=== PATIENT | male | born 2000 | race Caucasian/White ===

== ENCOUNTER 2021-08-24 20:30 | Emergency (ER) | payer MEDICARE, MEDICAID, SELFPAY ==
[2021-08-24 20:31] VITALS: BP 119/70; PULSE 78; RESP 20; TEMP 36.7; O2SAT 98; BMI 22.8
--- NOTE | 2021-08-24 20:40 | EDS_ITS ---
HPI History of Present Illness Chief Complaint: General Illness Informant: patient and EMS Narrative Narrative: 21-year-old male presenting to the emergency department stating that something is off. Patient currently lives at a senior living. He states that his grandmother told him that he seems off. He does not know exactly what she thought but he states he does not feel right. He states that his heart is racing (triage heart rate of 78) and he feels anxious. He states that he would like to have his thyroid checked as he takes thyroid medicine. He does not know what type of medicine or what condition. He knows that he takes Depakote. He is takes a blood pressure medicine that he does not know the name of. He does not have a primary care doctor that he is aware of. He states that he drank alcohol yesterday and occasionally uses marijuana. He states that he did not use any marijuana today. [facility] Medical History (Updated 08/24/21 @ 22:[address] Ricardo Greene DO) Hypertension Allergy/AdvReac Type Severity Reaction Status Date / Time No Known Allergies Allergy Verified 08/24/21 20:31 Social History (Updated 08/24/21 @ 20:[address] Ricardo Greene DO) current gender identity: male Smoking Status: Current every day smoker tobacco type: cigarettes substance use type: marijuana ROS ROS ED Constitutional Constitutional ED: Denies chills or weight loss Eyes Eyes: Denies change in vision or diplopia ENT ENT ED: Denies ear pain, rhinorrhea or sore throat Cardiovascular Cardiovascular: Reports palpitations; Denies chest pain, orthopnea or racing heartbeat Respiratory/Chest Respiratory/Chest: Denies cough, dyspnea or orthopnea Gastrointestinal Gastrointestinal: Denies abdominal pain, diarrhea, nausea or vomiting Genitourinary Genitourinary ED: Denies dysuria, hematuria or urinary frequency Musculoskeletal Musculoskeletal: Denies arthralgias or myalgias Integumentary Denies abscess or rash Neurologic Neurologic: Denies headache(s) or weakness Psychiatric Psychiatric: Reports anxiety; Denies depression, suicidal ideation or suicidal thoughts Endocrine Endocrinology: Denies polydipsia, polyphagia or polyuria Allergic/Immunologic Allergic/Immunologic ED: Denies mouth swelling, tongue swelling or urticaria EXAM Physical Exam Const Vital Signs: 08/24/21 20:31 08/24/21 20:55 Temperature 98.0 F Temperature Source Oral Pulse Rate 78 Respiratory Rate 20 H Respiratory Effort Normal Non-Labored Respiratory Pattern Normal Blood Pressure 119/70 Blood Pressure Mean 86 Pulse Ox 98 Oxygen Delivery Method Room Air Positive well nourished and well developed General Appearance ED: well developed HEENT Reports normocephalic, head/scalp atraumatic, TM's clear and moist mucous membranes Negative for trauma Tympanic Membrane ED: Yes TM's clear Eyes PERRL and EOMs intact bilaterally Neck no lymphadenopathy, supple and no JVD Resp normal respiratory effort and clear to auscultation bilaterally Cardio regular rate, regular rhythm and no murmurs GI normal to inspection, nondistended, normoactive bowel sounds and non-tender Palpation: soft Back/Spine no CVA tenderness and normal ROM Extremity normal to inspection General Extremety ED: Negative for edema General Extremity: Negative for edema Neuro oriented x3 and CN's II-XII intact bilaterally Sensorium / Orientation: alert Motor Exam: strength 5/5 throughout Psych mental status grossly normal Mood & Affect: Negative for depressed or tearful Skin no rashes or lesions noted and no wounds MDM MDM MDM Narrative Medical decision making narrative: Patient's TSH is less than 0.01. Difficult to interpret not knowing what thyroid condition he has. His valproic acid level is less than 3 suggesting that he has not been taking his valproic acid. His tox screem is positive for cannabinoids which he tells us. I spoke with our crisis counselor because the patient cannot tell me medicines doctors etc. He tells me that he has no showed 3 consecutive appointments with them. He apparently does have a court appointed compliance attorney with a guardian named Benitez desouza . I attempted to call but this is an office phone number and the mailbox is full. I think the patient can go home but I am concerned with his follow-up. Lab Data Attestation: I reviewed the patient's lab results. Labs: Laboratory Results - last 24 hr 08/24/21 08/24/21 08/24/21 20:45 20:52 20:52 WBC 11.5 H RBC 4.40 L Hgb 12.9 L Hct 38.4 L MCV 87.3 MCH 29.3 MCHC 33.6 RDW Std Deviation 42.5 RDW Coeff of Deirdre 13.2 Plt Count 236 MPV 8.9 Immature Gran % (Auto) 0.200 Neut % (Auto) 42.9 L Lymph % (Auto) 48.1 H Rains % (Auto) 7.3 Eos % (Auto) 1.1 Baso % (Auto) 0.4 Absolute Neuts (auto) 4.9 Absolute Lymphs (auto) 5.54 H Nucleated RBC % 0 Differential Comment SCANNED Sodium 141 Potassium 3.7 Chloride 110 H Carbon Dioxide 26.0 Anion Gap 5 BUN 14 Creatinine 0.59 L Estim Creat Clear Calc 181.78 Est GFR (MDRD) Af Amer 218 Est GFR (MDRD) Non-Af 180 BUN/Creatinine Ratio 23.7 H Glucose 104 Calcium 8.4 L Total Bilirubin 0.20 AST 14 L ALT 28 Alkaline Phosphatase 169 H Total Protein 6.4 Albumin 3.5 Globulin 2.9 Albumin/Globulin Ratio 1.2 TSH < 0.01 L Urine Opiates Screen NEGATIVE Urine Methadone Screen NEGATIVE Ur Barbiturates Screen NEGATIVE Valproic Acid Ur Phencyclidine Scrn NEGATIVE Ur Amphetamines Screen NEGATIVE MDMA (Ecstasy) Screen NEGATIVE U Benzodiazepines Scrn NEGATIVE Urine Cocaine Screen NEGATIVE U Cannabinoids Screen POSITIVE H Ur Drug Screen Comment Ethyl Alcohol 08/24/21 20:52 WBC RBC Hgb Hct MCV MCH MCHC RDW Std Deviation RDW Coeff of Deirdre Plt Count MPV Immature Gran % (Auto) Neut % (Auto) Lymph % (Auto) Rains % (Auto) Eos % (Auto) Baso % (Auto) Absolute Neuts (auto) Absolute Lymphs (auto) Nucleated RBC % Differential Comment Sodium Potassium Chloride Carbon Dioxide Anion Gap BUN Creatinine Estim Creat Clear Calc Est GFR (MDRD) Af Amer Est GFR (MDRD) Non-Af BUN/Creatinine Ratio Glucose Calcium Total Bilirubin AST ALT Alkaline Phosphatase Total Protein Albumin Globulin Albumin/Globulin Ratio TSH Urine Opiates Screen Urine Methadone Screen Ur Barbiturates Screen Valproic Acid < 3 L Ur Phencyclidine Scrn Ur Amphetamines Screen MDMA (Ecstasy) Screen U Benzodiazepines Scrn Urine Cocaine Screen U Cannabinoids Screen Ur Drug Screen Comment Ethyl Alcohol < 3.0 Discharge Plan Triage Chief Complaint: General Illness ED Provider: Ricardo Greene Dx/Rx/DC Orders Clinical Impression: Palpitations Primary Care Provider: Care Physician,No Primary Referrals: Counseling,Center [GROUP OF PHYSICIANS] - As soon as possible Care Physician,No Primary [Primary Care Provider] - Activity Restrictions/Additional Instructions: You need to discuss with your telephonic nurse case manager whom your primary care physician is going to be in schedule follow-up. You should carry a list of your medications with you Your Depakote level today was less than 3. You need to make sure you are taking your medicines and you need to mention this value to your doctors. Disposition Disposition: Home, Self Care
[2021-08-24 20:59] LABS: Absolute Lymphocyte Count 5.54 X10^3/uL (0.83-4.51); Absolute Neutrophil Count 4.9 X10^3/uL (2.0-7.7); Basophil# 0.05 X10^3/uL; Basophil% 0.4 % (0-1); Eosinophil# 0.13 X10^3/uL; Eosinophils% 1.1 % (0-5); Hematocrit 38.4 % (40-54); Hemoglobin 12.9 g/dL (13.0-16.5); Lymphocyte # 5.54 X10^3/ul (0.83-4.51); Lymphocyte % 48.1 % (19-41); Mean Corp Hgb Conc 33.6 g/dL (32-36); Mean Corpuscular Hgb 29.3 pg (27.0-32.0); Mean Corpuscular Volume 87.3 fL (80-94); Mean Platelet Vol. 8.9 fl (6.2-12.0); Monocyte# 0.84 X10^3/uL; Monocyte% 7.3 % (0-10); NRBC Flagged by Analyzer 0 % (0-5); Neutrophil # 4.93 X10^3/uL (2.7-7.7); Neutrophil % 42.9 % (47-70); POSITIVE DIFFERENTIAL YES; Platelet Count 236 K/mm3 (150-450); RBC Distribution Width CV 13.2 % (11.6-14.6); RBC Distribution Width SD 42.5 fl (35.1-43.9); White Blood Count 11.5 K/mm3 (4.4-11.0)
[2021-08-24 21:11] LABS: Differential Indicated SCAN CRITERIA MET
[2021-08-24 21:17] LABS: Amphetamine Urine VISTA NEGATIVE (<1000 ng/mL); Barbiturate Urine VISTA NEGATIVE (< 200 ng/mL); Benzodiazepine Urine VISTA NEGATIVE (< 200 ng/mL); Cocaine Urine VISTA NEGATIVE (< 300 ng/mL); Ecstacy Urine VISTA NEGATIVE (< 500 ng/mL); Methadone Urine VISTA NEGATIVE (< 300 ng/mL); PCP Urine VISTA NEGATIVE (< 25 ng/mL); THC Urine VISTA POSITIVE (< 50 ng/mL); Vista UDS pH Range 7
[2021-08-24 21:32] LABS: Alcohol, Blood (Medical)-Serum < 3.0 mg/dL; Differential Comment SCANNED; Valproic Acid (Depakene) Level < 3 ug/mL (50-100)
[2021-08-24 21:57] LABS: ALB/GLOB Ratio 1.2 RATIO (0.9-2.4); AST(SGOT) 14 U/L (15-37); Alanine Aminotransfer ALT/SGPT 28 U/L (16-61); Albumin, Serum 3.5 g/dL (3.2-5.0); Alkaline Phosphatase 169 U/L (45-117); Anion Gap 5 (5-15); BUN 14 mg/dL (7-18); BUN/Creat Ratio 23.7 RATIO (10-20); Calcium,Total 8.4 mg/dL (8.5-10.1); Chloride 110 mmol/L (98-107); Creatinine, Serum 0.59 mg/dL (0.70-1.30); EST Glomerular Filtration Rate 180 mL/min (>60); Est Glom Filt Rate - Afr Amer 218 mL/min (>60); Estimated Creatinine Clearance 181.78 ml/min; Globulin 2.9 g/dL (2.2-4.2); Glucose 104 mg/dL (74-106); Potassium 3.7 mmol/L (3.5-5.1); Protein, Total 6.4 g/dL (6.4-8.2); Sodium Level 141 mmol/L (136-145); Thyroid Stim Hormone (TSH) < 0.01 uIU/mL (0.358-3.74)
--- NOTE | 2021-08-24 22:09 | ED.RN ---
per pt he takes Synthroid, blood pressure medicine and Depakote. pt unsure of dosage amounts.
== END 2021-08-24 22:37 | disposition home or self-care (01) ==
PROVIDERS: Emergency Provider Emergency Medicine; Visit Provider Emergency Medicine
DX: R00.2 Palpitations (principal); F17.210 Nicotine dependence, cigarettes, uncomplicated; F12.90 Cannabis use, unspecified, uncomplicated
CPT/HCPCS: 80053; 80164; 80307; 82077; 84443; 85025; 99285; A4216

== ENCOUNTER 2021-10-02 17:16 | Emergency (ER) | payer MEDICARE, MEDICAID, SELFPAY ==
[2021-10-02 17:18] VITALS: BP 127/87; PULSE 104; RESP 16; TEMP 36.7; O2SAT 97; BMI 18.1
--- NOTE | 2021-10-02 17:36 | EKG12_ITS ---
Test Reason : PALP Blood Pressure : / mmHG Vent. Rate : 092 BPM Atrial Rate : 092 BPM P-R Int : 180 ms QRS Dur : 094 ms QT Int : 346 ms P-R-T Axes : 059 066 058 degrees QTc Int : 427 ms Normal sinus rhythm Normal ECG Confirmed by ISHAAN POLO MD ([id number]), brands editor DINORA UNGER ([id number]) on 10/03/2021 10:15:39 AM Referred By: CHAN Confirmed By:ISHAAN POLO MD
[2021-10-02 17:39] VITALS: O2SAT 99
[2021-10-02 17:50] LABS: Absolute Lymphocyte Count 4.01 X10^3/uL (0.83-4.51); Absolute Neutrophil Count 2.6 X10^3/uL (2.0-7.7); Basophil# 0.05 X10^3/uL; Basophil% 0.7 % (0-1); Eosinophil# 0.06 X10^3/uL; Eosinophils% 0.8 % (0-5); Hematocrit 42.3 % (40-54); Hemoglobin 14.1 g/dL (13.0-16.5); Lymphocyte # 4.01 X10^3/ul (0.83-4.51); Lymphocyte % 54.6 % (19-41); Mean Corp Hgb Conc 33.3 g/dL (32-36); Mean Corpuscular Hgb 29.5 pg (27.0-32.0); Mean Corpuscular Volume 88.5 fL (80-94); Mean Platelet Vol. 9.8 fl (6.2-12.0); Monocyte# 0.57 X10^3/uL; Monocyte% 7.8 % (0-10); NRBC Flagged by Analyzer 0 % (0-5); Neutrophil # 2.64 X10^3/uL (2.7-7.7); Platelet Count 237 K/mm3 (150-450); RBC Distribution Width CV 12.5 % (11.6-14.6); RBC Distribution Width SD 41.2 fl (35.1-43.9); Red Blood Count 4.78 M/mm3 (4.6-6.2); White Blood Count 7.3 K/mm3 (4.4-11.0)
--- NOTE | 2021-10-02 17:57 | EX.ED.DYSGE1 ---
HPI History of Present Illness Chief Complaint: Palpitations Narrative Narrative: 21-year-old male presenting from [facility] for evaluation of palpitations. He is unsure how long he has had them but he believes he was At his last ER visit about a month ago. He states he had no medication changes. He states he has been taking his medication. He states that the [facility] was supposed to manage that. He states he does not think he is having palpitations he thinks this thyroid cyst acting up from time to time. No chest pain or shortness of breath. No fever or chills. No cough. No lightheadedness or dizziness. PFSH PFS Medical History ADHD Antisocial personality disorder Hypertension Hyperthyroidism Schizo-affective schizophrenia Home Medications divalproex 250 mg tablet,delayed release (Depakote) 250 mg PO BID 10/02/21 [History Last Taken Unknown] methimazole 15 mg tablet 15 mg PO BID 10/02/21 [History Last Taken Unknown] paliperidone 6 mg tablet,extended release 24 hr (Invega) 6 mg PO DAILY 10/02/21 [History Last Taken Unknown] paliperidone palmitate 234 mg/1.5 mL intramuscular syringe (Invega Sustenna) mg IM 10/02/21 [History Last Taken Unknown] Allergy/AdvReac Type Severity Reaction Status Date / Time No Known Allergies Allergy Verified 08/24/21 20:31 Social History Smoking Status: Current every day smoker tobacco type: cigarettes substance use type: marijuana ROS ROS ED Constitutional Constitutional ED: Denies chills or fever(s) Eyes Eyes: Denies change in vision or diplopia ENT ENT ED: Denies rhinorrhea or sore throat Cardiovascular Cardiovascular: Reports palpitations; Denies chest pain Respiratory/Chest Respiratory/Chest: Denies cough or dyspnea Gastrointestinal Gastrointestinal: Denies abdominal pain, constipation or diarrhea Genitourinary Genitourinary ED: Denies dysuria Musculoskeletal Musculoskeletal: Denies arthralgias or back pain Integumentary Denies abscess Neurologic Neurologic: Denies headache(s) Psychiatric Psychiatric: Denies suicidal ideation or suicidal thoughts EXAM Physical Exam Const Vital Signs: 10/02/21 17:18 10/02/21 17:20 10/02/21 17:39 Temperature 98.1 F Temperature Source Oral Pulse Rate 104 H Respiratory Rate 16 Respiratory Effort Normal Blood Pressure 127/87 H Blood Pressure Mean 100 Pulse Ox 97 99 Oxygen Delivery Method Room Air Room Air Positive well nourished and unkempt General Appearance ED: unkempt; Negative for pallor HEENT Reports moist mucous membranes Eyes PERRL and EOMs intact bilaterally Resp clear to auscultation bilaterally Cardio regular rhythm Rate: tachycardic GI normal to inspection, nondistended, normoactive bowel sounds Extremity normal to inspection Neuro oriented x3 and CN's II-XII intact bilaterally Psych Appearance: unkempt Skin General Skin Exam: Negative for jaundice or pallor MDM MDM MDM Narrative Medical decision making narrative: I did order blood work to evaluate the patient's symptoms however it does not sound as if he has been taking his medications. I did he obtain an EKG and it is a sinus rhythm with ventricular 90 bpm without sign of ischemic change or dysrhythmia my interpretation. So far only CBC has returned and the patient states to me that he has an emergency in the family and left the emergency room. Impression: 1. Palpitations Lab Data Labs: Laboratory Results - last 24 hr 10/02/21 17:25 WBC 7.3 RBC 4.78 Hgb 14.1 Hct 42.3 MCV 88.5 MCH 29.5 MCHC 33.3 RDW Std Deviation 41.2 RDW Coeff of Deirdre 12.5 Plt Count 237 MPV 9.8 Immature Gran % (Auto) 0.100 Neut % (Auto) 36.0 L Lymph % (Auto) 54.6 H [place] % (Auto) 7.8 Eos % (Auto) 0.8 Baso % (Auto) 0.7 Absolute Neuts (auto) 2.6 Absolute Lymphs (auto) 4.01 Nucleated RBC % 0 Discharge Plan Triage Chief Complaint: Palpitations ED Provider: Afshin Gordon Dx/Rx/DC Orders Prescriptions: No Action Invega Sustenna 234 mg/1.5 mL Syringe IM divalproex [Depakote] 250 mg Tablet,Delayed Release (Dr/Ec) 250 mg PO BID paliperidone [Invega] 6 mg Tablet Extended Release 24hr 6 mg PO DAILY methimazole 15 mg Tablet 15 mg PO BID Primary Care Provider: Care Physician,No Primary Referrals: Care Physician,No Primary [Primary Care Provider] -
--- NOTE | 2021-10-02 18:00 | RAD_ITS ---
STUDY: X-RAY CHEST REASON FOR EXAM: Male, 21 years old. chest pain TECHNIQUE: Single AP portable view of the chest. COMPARISON: None. FINDINGS: The lungs are clear and expanded. There is no demonstrated pleural abnormality. Normal size heart. Normal mediastinum and adolph. Normal visualized pulmonary arteries. Normal visualized aortic arch and descending thoracic aorta. Normal visualized thoracic spine. Normal visualized ribs, clavicles, and shoulders. There is no demonstrated abnormality of the visualized soft tissue structures of the upper abdomen. RAD/Chest 1 View (Portable) IMPRESSION: Normal x-ray examination of the chest. Electronically Signed: Talon Hernandez MD at 18:30 EDT ,
[2021-10-02 18:19] LABS: Anion Gap 6 (5-15); BUN 14 mg/dL (7-18); BUN/Creat Ratio 27.8 RATIO (10-20); Calcium,Total 8.8 mg/dL (8.5-10.1); Chloride 111 mmol/L (98-107); EST Glomerular Filtration Rate 217 mL/min (>60); Est Glom Filt Rate - Afr Amer 262 mL/min (>60); Estimated Creatinine Clearance 171.28 ml/min; Glucose 102 mg/dL (74-106); Potassium 3.9 mmol/L (3.5-5.1); Sodium Level 139 mmol/L (136-145); Thyroid Stim Hormone (TSH) < 0.01 uIU/mL (0.358-3.74); Troponin-I HS (w/2H Reflex) < 3 pg/mL (3.0-78.0)
--- NOTE | 2021-10-02 18:22 | ED.RN ---
pt out to nurses station requesting to leave d/t family emergency. dr. hazel update. pt calling insurance about getting ride.
[2021-10-02 18:28] LABS: Valproic Acid (Depakene) Level < 3 ug/mL (50-100)
[2021-10-02 19:45] LABS: Reflex Troponin-HS? (from REC) Y
== END 2021-10-02 18:53 | disposition home or self-care (01) ==
LOC: ED 18:46
PROVIDERS: Emergency Provider Student in an Organized Health Care Education/Training Program; Visit Provider Student in an Organized Health Care Education/Training Program
DX: R00.2 Palpitations (principal); F25.9 Schizoaffective disorder, unspecified; F60.2 Antisocial personality disorder; I10 Essential (primary) hypertension; F90.9 Attention-deficit hyperactivity disorder, unspecified type; F17.210 Nicotine dependence, cigarettes, uncomplicated; Z79.899 Other long term (current) drug therapy
CPT/HCPCS: 71045; 80048; 80164; 84443; 84484; 85025; 93005; 99285; A4216

== ENCOUNTER → 2024-05-14 | Outpatient (CLI) | payer MEDICARE, MEDICAID, SELFPAY ==
--- NOTE | 2024-05-14 12:59 | ECHOD_ITS ---
Reason For Study: ARRHYTHMIA Procedure This was a 2D Doppler, Color Flow transthoracic echocardiogram. Exam performed in department. Left Ventricle Normal LV size. Left ventricular systolic function is normal. The left ventricular ejection fraction is 60 %. No regional wall motion abnormalities noted. Right Ventricle Normal RV size. Normal systolic function. Atria Normal left atrium. Normal right atrium. Mitral Valve Normal mitral valve. Tricuspid Valve Normal tricuspid valve. Aortic Valve Trisinus/trileaflet aortic valve. Pulmonic Valve Normal pulmonic valve. Great Vessels Normal aortic root. The pulmonary artery is normal size. Normal inferior vena cava. Pericardium/Pleural No pericardial effusion. MMode/2D Measurements & Calculations LVIDd: 4.7 cm IVSd: 1.0 cm LVOT diam: 2.2 cm LVIDs: 2.9 cm LVPWd: 1.0 cm LVOT area: 3.9 cm2 RVDd: 3.3 cm FS: 39.2 % asc Aorta Diam: 3.5 cm LAV(MOD-bp): 23.9 ml LVAd ap4: 27.9 cm2 LAV(MOD-bp) Indexed: 12.2 ml/m2 LVLd ap4: 8.4 cm LAV(MOD-sp2): 32.0 ml EDV(MOD-sp4): 79.7 ml LAV(MOD-sp4): 18.6 ml EDV(sp4-el): 78.7 ml LVAs ap4: 15.7 cm2 LVLs ap4: 6.7 cm ESV(MOD-sp4): 33.3 ml ESV(sp4-el): 31.3 ml EF(MOD-sp4): 58.3 % EF(sp4-el): 60.2 % LVAd ap2: 23.0 cm2 SV(MOD-sp4): 46.5 ml SV(MOD-sp2): 35.8 ml LVLd ap2: 7.6 cm SI(MOD-sp4): 23.8 ml/m2 SI(MOD-sp2): 18.3 ml/m2 EDV(MOD-sp2): 60.8 ml EDV(sp2-el): 58.6 ml LVAs ap2: 13.8 cm2 LVLs ap2: 6.3 cm ESV(MOD-sp2): 25.0 ml ESV(sp2-el): 25.7 ml EF(MOD-sp2): 58.9 % SV(sp4-el): 47.4 ml Ao sinus diam: 3.[address] Junction: 3.3 cm LA dimension(2D): 2.9 cm LA A4 area: 10.2 cm2 RA A4 area: 13.9 cm2 TAPSE: 1.5 cm Time Measurements MV dec time: 0.21 sec Doppler Measurements & Calculations MV E max nba: 76.9 cm/sec Lat Peak E' Nba: 16.3 cm/sec Med Peak E' Nba: 12.3 cm/sec MV A max nba: 48.0 cm/sec E/E' lat: 4.7 E/E' med: 6.2 MV E/A: 1.6 MV dec slope: 368.0 cm/sec2 Ao V2 max: 131.1 cm/sec LV V1 max: 104.1 cm/sec Ao max P.9 mmHg LV V1 max P.3 mmHg Ao V2 mean: 100.7 cm/sec LV V1 mean P.4 mmHg Ao mean P.3 mmHg LV V1 mean: 72.2 cm/sec Ao V2 VTI: 23.0 cm LV V1 VTI: 19.0 cm AV (velocity ratio): 0.83 WAQAS(I,D): 3.2 cm2 WAQAS(V,D): 3.1 cm2 SV(LVOT): 73.9 ml PA V2 max: 94.1 cm/sec ECHO/Echo Complete Interpretation Summary Normal LV size. Left ventricular systolic function is normal. The left ventricular ejection fraction is 60 %. Structurally normal valves. Ordering Physician: Efraín, Chino Referring Physician: Chino Kenny MD Performed By: Oksana Schaefer, [facility]
== END | disposition home or self-care (01) ==
LOC: CVS 12:55
PROVIDERS: PCP Family Medicine; Referring Provider Internal Medicine Cardiovascular Disease; Visit Provider Internal Medicine Cardiovascular Disease
DX: R94.31 Abnormal electrocardiogram [ECG] [EKG] (principal); R00.2 Palpitations
CPT/HCPCS: 93306

== ENCOUNTER → 2025-03-20 | Outpatient (CLI) | payer MEDICARE, MEDICAID, SELFPAY ==
[2025-03-20 14:16] LABS: T3 Total - Triiodothyronine 0.97 ng/mL (0.80-2.00); T4 Total, Thyroxin 5.7 ug/dL (4.5-12.1)
== END | disposition home or self-care (01) ==
PROVIDERS: PCP Family Medicine; Referring Provider Family Medicine; Visit Provider Family Medicine
DX: R06.2 Wheezing (principal); E05.91 Thyrotoxicosis, unspecified with thyrotoxic crisis or storm
CPT/HCPCS: 84436; 84443; 84480

== ENCOUNTER 2025-03-26 15:04 | Inpatient (IN) | payer MEDICARE, MEDICAID, SELFPAY ==
[2025-03-26] VITALS (14 sets, daily range): BP systolic 94–128; BP diastolic 65–96; PULSE 92–102; RESP 17–24; TEMP 36.7–37.1; O2SAT 85–94; BMI 30.9; BMI 31.5
--- NOTE | 2025-03-26 15:26 | EKG12_ITS ---
Test Reason : SOB Blood Pressure : */* mmHG Vent. Rate : 95 BPM Atrial Rate : 95 BPM P-R Int : 190 ms QRS Dur : 112 ms QT Int : 382 ms P-R-T Axes : 39 32 47 degrees QTcB Int : 480 ms Normal sinus rhythm QTcB >= 480 msec Abnormal ECG Confirmed by ARIANA MERINO, GAY ([id number]), assistant production editor DINORA UNGER ([id number]) on 03/30/2025 6:28:14 AM Referred By: Confirmed By: GAY LANE MD
--- NOTE | 2025-03-26 15:28 | ED.VIS.DYS ---
HPI History of Present Illness Chief Complaint: Shortness of Breath Narrative Narrative: Patient is a 24-year-old male presenting to the emergency department for hypoxia. Patient has a past medical history of palpitations, tachycardia, hypertension, hypothyroidism and multiple psychiatric diagnoses that can be seen in his medical history. He states that he told his nurses at his psychiatric facility that he was sick last night. Further asked about this he states that he had 1 episode of nonbloody nonbilious emesis last night after feeling nauseous. Today he told them that he did not feel good stating that he was nauseous. He was noted to be hypoxic in the 80s and was placed on oxygen by EMS. States he felt mildly SOB but not now that he is on O2. No chest pain. He does smoke about 8 cigarettes daily. Endorses a productive cough of clear sputum. Denies cardiac history, history of asthma or history of DVT/PE. Denies any recent hospitalizations, surgeries or travel. Denies any leg swelling. Denies fever, chills, sore throat, nausea or vomiting at this time, abdominal pain. [facility] Medical History Impulsiveness Paranoid personality disorder Moderate protein malnutrition PVD (peripheral vascular disease) Suicidal ideations Hallucinations Patient's noncompliance with other medical treatment and regimen for other reason Palpitations Other psychoactive substance abuse, uncomplicated Tachycardia ADHD Antisocial personality disorder Schizo-affective schizophrenia Hyperthyroidism Hypertension Home Medications ?Medication ?Instructions ?Recorded ?Last Taken ?Type divalproex 250 mg tablet,delayed 250 mg PO QHS SCHIZOEFFECTIVE 03/20/24 Unknown History release (Depakote) divalproex 500 mg tablet,delayed 500 mg PO BID SCHIZOEFFECTIVE 03/20/24 Unknown History release (Depakote) DISORDER hydrochlorothiazide 25 mg tablet 25 mg PO QAM HTN 03/20/24 Unknown History hydroxyzine HCl 50 mg tablet 50 mg PO Q6H PRN anxiety 03/20/24 Unknown History lisinopril 10 mg tablet 10 mg PO QDAY HTN 03/20/24 Unknown History lorazepam 1 mg tablet (Ativan) 1 mg PO Q6H PRN PRN anxiety 03/20/24 Unknown History olanzapine 10 mg tablet 10 mg PO BID SCHIZOEFFECTIVE 03/20/24 Unknown History DISORDER trazodone 50 mg tablet 50 mg PO QHS SLEEP 03/20/24 Unknown History methimazole 10 mg tablet 10 mg PO DAILY THYROTOXIC CRISIS 04/23/24 Unknown History methimazole 15 mg tablet 15 mg PO .every other day 04/23/24 Unknown History propranolol 20 mg tablet 10 mg PO DAILY HTN 04/23/24 Unknown History Allergy/AdvReac Type Severity Reaction Status Date / Time No Known Allergies Allergy Verified 03/26/25 15:10 Surgical History No history of previous surgery Social History Smoking Status: Current every day smoker tobacco type: cigarettes substance use type: marijuana ROS ROS ED ROS Narrative see HPI EXAM Physical Exam Narrative Exam Narrative: Vital signs: Reviewed General: Alert and orientedx3. No acute distress. Nontoxic, well appearing. HEENT: Head is normocephalic and atraumatic, sinuses nontender, pupils equal round and reactive. Nares are patent. Oropharynx and throat exams normal. Neck: Supple without lymphadenopathy nontender Cardiovascular: Regular rate and rhythm, no murmurs. No rubs or gallops. Normal S1 and S2 Respiratory: Expiratory wheezing in all lung sullivan. No rhonchi or rales. on 2 L NC saturating 95%, mouth breathing. Abdominal: Soft and nontender. Normal bowel sounds. No guarding or rebound. Nonsurgical abdomen Extremities: No lower extremity edema. No tenderness. No bruising. Normal range of motion. Normal sensation. Skin: No rash or redness. The rest of the physical exam is unremarkable Const Vital Signs: 03/26/25 15:04 03/26/25 15:10 03/26/25 15:17 Temperature 98.6 F 98.6 F Temperature Source Oral Oral Pulse Rate 102 H 97 Respiratory Rate 20 H 24 H Respiratory Effort Short of Breath Blood Pressure 96/65 97/65 Blood Pressure Mean 75 75 Pulse Ox 85 91 Oxygen Delivery Method Room Air Nasal Cannula Nasal Cannula Oxygen Flow Rate (L/min) 3 3 03/26/25 15:26 03/26/25 16:00 03/26/25 16:00 Temperature Temperature Source Pulse Rate 98 Respiratory Rate 19 H Respiratory Effort Blood Pressure Blood Pressure Mean Pulse Ox 90 93 Oxygen Delivery Method Room Air Nasal Cannula Oxygen Flow Rate (L/min) 3 3 03/26/25 16:04 03/26/25 16:10 03/26/25 17:00 Temperature 98.7 F Temperature Source Oral Pulse Rate 102 H 100 102 H Respiratory Rate 20 H 18 20 H Respiratory Effort Blood Pressure 106/74 104/69 104/69 Blood Pressure Mean 84 80 80 Pulse Ox 92 92 92 Oxygen Delivery Method Nasal Cannula Nasal Cannula Nasal Cannula Oxygen Flow Rate (L/min) 3 3 3 03/26/25 17:10 03/26/25 18:00 Temperature 98.7 F Temperature Source Oral Pulse Rate 100 92 Respiratory Rate 18 18 Respiratory Effort Blood Pressure 106/67 98/70 Blood Pressure Mean 80 79 Pulse Ox 92 92 Oxygen Delivery Method Nasal Cannula Nasal Cannula Oxygen Flow Rate (L/min) 3 3 MDM MDM MDM Narrative Medical decision making narrative: Patient is a 24-year-old male presenting to the emergency department for hypoxia. Patient was seen and examined. Vitals are stable. Patient resting bed comfortably no acute distress. He is on 3 L nasal cannula saturating 95 to 97% when I am in the room. He is not tachypneic when I am in the room. No tachycardia on my evaluation. Differential includes but is not limited to: Pneumonia, asthma/COPD, PE, ACS, pneumothorax Patient has diffuse wheezing and does have a history of significant smoking. Will give 2 DuoNeb breathing treatments and prednisone. Will also obtain a CT of the chest to rule out pulmonary embolism and further evaluate for any pneumonia. EKG shows normal sinus rhythm at a rate of 95 with QTc prolonged at 480. There is no ischemic changes. There is no dysrhythmia. CBC with mild leukopenia of 3.3, normal hemoglobin of 13.6 and thrombocytopenia of 104. He is on olanzapine which could cause these abnormalities. BMP with hyponatremia of 122 which again can be contributed to his olanzapine, fluid bolus ordered. Hypokalemia 2.8, oral repletion of potassium was given. Lactic within normal limits. Troponin and reflex within normal limits with no significant delta change. Chest CT shows no pulmonary embolism however limited study. There are scattered lung opacities bilaterally most consistent with multifocal pneumonia. Patient still requiring 2 to 3 L nasal cannula. He was ambulated without oxygen and pulse ox dropped to around 88%. With the patient's hyponatremia, we will add on Legionella. Discussed findings with the patient and recommendations for admission and he is agreeable. Patient admitted to hospitalist, Dr. Hoover for further management. Clinical impression Multifocal pneumonia Leukopenia Thrombocytopenia Hyponatremia Hypokalemia Hypoxia History & Record Review Discussion w/independent historian: Patient Lab Data Attestation: I reviewed the patient's lab results. Labs: Laboratory Results - last 24 hr 03/26/25 03/26/25 15:14 17:51 WBC 3.3 L RBC 4.26 L Hgb 13.6 Hct 37.2 L MCV 87.3 MCH 31.9 MCHC 36.6 H RDW Std Deviation 39.8 RDW Coeff of Deirdre 12.4 Plt Count 104 L MPV 9.9 Immature Gran % (Auto) 0.300 Neut % (Auto) 52.3 Lymph % (Auto) 34.1 [place] % (Auto) 12.7 H Eos % (Auto) 0.0 Baso % (Auto) 0.6 Absolute Neuts (auto) 1.7 L Absolute Lymphs (auto) 1.13 Nucleated RBC % 0 Sodium 122 L Potassium 2.8 L Chloride 83 L Carbon Dioxide 25.3 Anion Gap 14 BUN 12 Creatinine 1.01 Estim Creat Clear Calc 118.36 Est GFR (MDRD) Non-Af 105 BUN/Creatinine Ratio 11.5 Glucose 126 H Lactic Acid < 1.0 Calcium 8.0 Troponin T High Sens 10 Troponin T Hi Sens 2 Hr 13 Radiography Diagnostic Testing: Clinical Impression(s) from Imaging Studies Chest CTA 03/26/25 15:42 IMPRESSION: 1. Limited evaluation of the subsegmental pulmonary arteries. No evidence of PE in the remaining pulmonary arteries. 2. Scattered lung opacities bilaterally, most consistent with multifocal pneumonia. Reading Location: [id number] Discharge Plan Disposition Disposition: Acute Care Hospital [facility] Discharge Date/Time: 03/26/25 19:04
[2025-03-26 15:40] LABS: Hematocrit 37.2 % (40-54); Hemoglobin 13.6 g/dL (13.0-16.5); Immature Granulocytes Count 0.010 X10^3/uL (0.0-0.0); Mean Corp Hgb Conc 36.6 g/dL (32-36); Mean Corpuscular Volume 87.3 fL (80-94); Mean Platelet Vol. 9.9 fl (6.2-12.0); NRBC Flagged by Analyzer 0 % (0-5); Platelet Count 104 K/mm3 (150-450); RBC Distribution Width CV 12.4 % (11.6-14.6); RBC Distribution Width SD 39.8 fl (35.1-43.9); Red Blood Count 4.26 M/mm3 (4.6-6.2); White Blood Count 3.3 K/mm3 (4.4-11.0)
--- NOTE | 2025-03-26 15:42 | CT_ITS ---
PROCEDURE: CTA CHEST W/WO CONTRAST 03/26/2025 REASON FOR EXAM: HYPOXIA TECHNIQUE: Procedure Code: [id number] Modality: CT Procedure: CTA CHEST W/WO CONTRAST Axial CTA images obtained of the chest after the administration of intravenous contrast. MIP reconstructed images were created and reviewed. CONTRAST: Isovue 370 VOLUME: 100 mL One or more dose reduction techniques were used (e.g., Automated exposure control, adjustment of the mA and/or kV according to patient size, use of iterative reconstruction technique). RADIATION DOSE SUMMARY: CTDlvol: 14.25, 10.86 mGy DLP: 390 mGycm COMPARISON: None. FINDINGS: PULMONARY ARTERIES Respiratory motion limits evaluation of the subsegmental pulmonary arteries. No evidence of PE in the remaining pulmonary arteries. AORTA No thoracic aortic aneurysm or dissection. LUNGS No pulmonary mass. Multifocal lung opacities bilaterally, with sparing of the right middle lobe. PLEURAL SPACES No pleural effusion. No pneumothorax. HEART No cardiomegaly. No significant pericardial effusion. MEDIASTINUM/HILUM Mildly prominent mediastinal and bilateral hilar lymph nodes, likely reactive. The largest is subcarinal measuring 1.3 x 2.0 cm. CHEST WALL The chest wall is unremarkable. THYROID Generalized thyroid gland enlargement. BONES No focal osseous abnormality or acute fracture. UPPER ABDOMEN Images through the upper abdomen are unremarkable. CT/CTA Chest W/WO Contrast IMPRESSION: 1. Limited evaluation of the subsegmental pulmonary arteries. No evidence of PE in the remaining pulmonary arteries. 2. Scattered lung opacities bilaterally, most consistent with multifocal pneum onia. Reading Location: [id number]
[2025-03-26 16:10] LABS: Anion Gap 14 (5-15); BUN 12 mg/dL (4-19); BUN/Creat Ratio 11.5 RATIO (10-20); Calcium,Total 8.0 mg/dL (7.6-11.0); Carbon Dioxide 25.3 mmol/L (21.0-32.0); Chloride 83 mmol/L (98-108); Estimated Creatinine Clearance 118.36 ml/min (50-250); Glucose 126 mg/dL (70-99); Potassium 2.8 mmol/L (3.3-5.1)
[2025-03-26 16:40] LABS: Troponin T High Sensitivity 10 ng/L (<=22)
[2025-03-26] MEDS: Potassium Chloride Oral Tablet 20 MEQ 60 MEQ PO (17:03)
[2025-03-26] MEDS: 0.9% Normal Saline (1000mL) 1,000 ML 1000 ML IV (17:32)
--- OUTSIDE RECORDS SUMMARY | 2025-03-26 18:20 | XMS RPT_ITS | CCD ---
Author Organization [facility] [place] [facility] Care Team Providers Care Shut Off Worker Name Role Phone INDURTI, MARCO V Admitting Unavailable INDURTI, AMRCO V Attending Unavailable MELITON, LEIDY R Admitting Unavailable MELITON, LEIDY R Attending Unavailable GROUP, [facility]CH COVER[employer] Consulting Unavailabl e AICHA RUTHMED Admitting Unavailable NAMITA RUTH Attending Unavailable INDURTI, MARCO V Admitting Unavailable INDURTI, MARCO V Attending Unavailable GINNY GUTIÉRREZ Attending Unavailable Unavailable Primary Care Provider Unavailabl e GINO GUTIERREZ Attending Unavailable SANDOR HOLM Consulting Unavailable SANDOR HOLM Admitting Unavailable JESSIE DAI Attending Unavailable JESSIE DAI Consulting Unavailable SHARON XIONG Consulting Unavailable No, Physician Primary Care Provider Unavailabl e Adrienne Arcos Primary Care Provider No, Physician Primary Care Provider Unavailabl e SHILA RAJPUT Attending Unavailable SHILA RAJPUT Admitting Unavailable Unavailable Primary Care Provider Unavailabl e Unavailable Primary Care Provider Unavailabl e PROVIDER, UNKNOWN Admitting Unavailable DAMIR ELLIOTT Attending Unavailable PROVIDER, UNKNOWN Admitting Unavailable PROVIDER, UNKNOWN Attending Unavailable No, Physician Primary Care Provider Unavailabl e Amadeo Silver MD Primary Care Provider Amadeo Silver Primary Care Unavailable Care Physician, No Primary Referring Unava ilable Efraín, Chino Attending Unavailable Amadeo Silver Primary Care Unavailable Efraín, Chino Attending Unavailable Efraín, Chino Referring Unavailable Amadeo Silver Primary Care Unavailable Efraín, Sherman Attending Unavailable AMADEO SILVER Primary Care Unavailable NO, PHYSICIAN Primary Care Unavailable AMADEO SILVER Primary Care Unavailable ADLY, CHARLES ADLY CHARLES Attending Unava ilable AMADEO SILVER Primary Care Unavailable ADLY, CHARLES ADLY CHARLES Attending Unava ilable GUILLERMOY, CHARLES ADLY CHARLES Attending Unava ilable AMADEO SILVER Primary Care Unavailable ADLY, CHARLES ADLY CHARLES Attending Unava ilable AMADEO SILVER Primary Care Unavailable ADLY, CHARLES ADLY CHARLES Attending Unava ilable AMADEO SILVER Primary Care Unavailable ADLY, CHARLES ADLY CHARLES Attending Unava ilable AMADEO SILVER Primary Care Unavailable AMADEO SILVER Primary Care Unavailable ADLY, CHARLES ADLY CHARLES Attending Unava ilable GUILLERMOY, CHARLES ADLY CHARLES Attending Unava ilable AMADEO SILVER Primary Care Unavailable ADLY, CHARLES ADLY CHARLES Attending Unava ilable AMADEO SILVER Primary Care Unavailable ADLY, CHARLES ADLY CHARLES Attending Unava ilable AMADEO SILVER Primary Care Unavailable ADLY, CHARLES ADLY CHARLES Attending Unava ilable AMADEO SILVER Primary Care Unavailable ADLY, CHARLES ADLY CHARLES Attending Unava ilable AMADEO SILVER Primary Care Unavailable Allergies Allergy Classification Reported Allergen(s) Allergy Type Date of Onset Reaction(s) Facility (20 sources) MITE EXTRACT Drug Allergy 9 Other (See Comments) [place], [place] (20 sources) redtop grass pollen extract Drug Allergy 9 Other (See Comments) [place] (2 sources) MITE EXTRACT; Translations: [MITE EXTRACT] Drug Allergy 9 [facility] Repository (2 sources) GRASS POLLEN-RED TOP, STANDARD; Translations: [GRASS POLLEN-RED TOP, STANDARD] Propensity to adverse reactions to drug (disorder) 9 [facility] Medications Current Medications Medication Drug Class(es) Dates Sig (Normalized) Sig (Original) azithromycin (ZITHROMAX) 500 mg in dextrose 5% 250 mL IVPB (2 sources) Start: 06-03-2019 azithromycin (ZITHROMAX) 500 mg in dextrose 5% 250 mL IVPB Start: 06-03-2019 End: 06-03-2019 azithromycin (ZITHROMAX) 500 mg in dextrose 5% 250 mL IVPB dextromethorphan hydrobromide 2 mg/ml / guaiFENesin 20 mg/ml oral solution (2 sources) Uncompetitive Y-lwnefj-Q-aspartate Receptor Antagonist, Sigma-1 Agonist Start: 06-04-2019 dextromethorphan-guaiFENesin (ROBITUSSIN-DM) 10-100 MG/5ML syrup Take 10 mLs by mouth every 4 hours as needed for Cough 1 Bottle 0 06/04/2019 Active Start: 06-03-2019 dextromethorph an-guaiFENesin (ROBITUSSIN-DM) 10-100 MG/5ML liquid 10 mL ergocalciferol 1.25 mg oral capsule (2 sources) Provitamin D2 Compound Start: 03-23-2020 ergocalciferol (ERGOCALCIFEROL) 1,250 mcg (50,000 unit) capsule Vitamin D (Ergocalciferol) 1.25 MG(33405 UT), 1 (one) Capsule once a week # 4, 03/23/2020, Ref. x11. Active Oral once a week; Duration: 0 03/23/2020 Active hydroCHLOROthiazide 25 mg oral tablet (11 sources) Thiazide Diuretic take 1 tablet by mouth once daily hydroCHLOROthiazide (HYDRODIURIL) 25 MG tablet Take 1 (one) tablet (25 mg total) by mouth daily . Active ibuprofen 600 mg oral tablet (5 sources) Nonsteroidal Anti-inflammator y Drug Start: 08-20-2020 take 1 tablet by mouth twice daily as needed ibuprofen (ADVIL,MOTRIN) 600 MG tablet Ibuprofen 600MG, 1 (one) Tablet two times daily, as needed # 60, 08/20/2020, Ref. x1. Active Oral two times daily, as needed; Duration: 0 08/20/2020 Active Start: 11-12-2019 End: 11-19-2019 take 1 tablet by mouth every six hours as needed 600 mg, Oral, Every 6 hours PRN, mild pain, Starting 11/12/19 at 2031 Give with Food Do Not Crush or Chew if administering orally due to bitter taste. May be crushed if given via tube. Start: 10-20-2019 End: 10-30-2019 take 1 tablet by mouth every six hours as needed ibuprofen (ADVIL,MOTRIN) tablet 600 mg Start: 06-03-2019 End: 06-03-2019 ibuprofen (ADVIL;MOTRIN) tab let 800 mg levoFLOXacin 750 mg oral tablet (1 source) Quinolone Antimicrobial Start: 06-04-2019 End: 06-07-2019 take 1 tablet by mouth once daily levoFLOXacin (LEVAQUIN) 750 MG tablet Take 1 tablet by mouth daily for 3 days 3 tablet 0 06/04/2019 06/07/2019 Active lisinopril 10 mg oral tablet (11 sources) Angiotensin Converting Enzyme Inhibitor lisinopriL (PRINIVIL,ZESTRIL) 10 MG tablet Take by mouth daily . Active methIMAzole 10 mg oral tablet (20 sources) Thyroid Hormone Synthesis Inhibitor Start: 09-10-2024 End: 09-10-2025 take 0.5 tablet by mouth once daily methIMAzole (TAPAZOLE) 10 MG tablet Take 0.5 (one-half) tablet (5 mg total) by mouth daily . 15 tablet 11 09/10/2024 09/10/2025 Active Start: 01-12-2024 End: 01-11-2025 methIMAzole (TAPAZOLE) 10 MG tablet Take 1.5 (one and a half) tablets (15 mg total) by mouth daily . 45 tablet 11 01/12/2024 09/10/2024 Discontinued Start: 12-11-2023 End: 12-10-2024 take 1 tablet by mouth twice daily methIMAzole (TAPAZOLE) 10 MG tablet Take 1 (one) tablet (10 mg total) by mouth 2 (two) times a day . 60 tablet 11 12/11/2023 12/10/2024 Active Start: 11-02-2023 take 1 tablet by elijah th three times daily methIMAzole (TAPAZOLE) 10 MG tablet Take 1 (one) tablet (10 mg total) by mouth 3 (three) times a day . 90 tablet 3 11/02/2023 Active Start: 09-25-2023 End: 11-02-2023 take 2 tablets by mouth three times daily methIMAzole (TAPAZOLE) 10 MG tablet Take 2 (two) tablets (20 mg total) by mouth 3 (three) times a day . 180 tablet 09/25/2023 11/02/2023 Discontinued Start: 08-20-2023 End: 09-19-2023 take 2 tablets by mouth every six hours methIMAzole (TAPAZOLE) 10 MG tablet Take 2 (two) tablets (20 mg total) by mouth every 6 (six) hours . 240 tablet 0 08/20/2023 09/19/2023 Suspended Start: 08-20-2023 End: 09-19-2023 take 2 tablets by mouth every six hours Take 2 (two) tablets (20 mg total) by mouth every 6 (six) hours ., Starting Sun08/20/2023, Until Sun09/19/2023, Normal Start: 08-20-2023 End: 08-24-2023 methIMAzole (TAPAZOLE) table t 20 mg Start: 11-01-2021 End: 12-01-2021 take 1 tablet by mouth three times daily methIMAzole (TAPAZOLE) 5 mg tablet Take 1 tablet by mouth three times daily. 90 tablet 0 11/01/2021 12/01/2021 Active Start: 10-02-2021 take 15 mg by mouth twice max y Methimazole Active 15 MG PO TWICE A DAY October 02, 2021 12:00am Start: 02-26-2020 End: 03-27-2020 methIMAzole (TAPAZOLE) 10 MG tablet Take 1.5 (one and a half) tablets (15 mg total) by mouth daily . 50 tablet 5 02/26/2020 03/27/2020 Active Start: 01-01-2020 End: 02-26-2020 take 2 tablets by mouth once daily methIMAzole (TAPAZOLE) 10 MG tablet Take 2 (two) tablets (20 mg total) by mouth daily Start: 01/01/20. 60 tablet 0 01/01/2020 02/26/2020 Discontinued (Reorder) Start: 12-28-2019 End: 01-06-2020 methIMAzole (TAPAZOLE) table t 20 mg Start: 12-27-2019 End: 12-27-2019 take 30 mg by mouth once daily 30 mg, Oral, Daily, [facility] dose on 9/12/20 at 0900 Start: 12-08-2019 End: 01-17-2020 take 3 tablets by mouth once daily methIMAzole (TAPAZOLE) 10 MG tablet Take 3 (three) tablets (30 mg total) by mouth daily . 90 tablet 3 12/18/2019 01/06/2020 Discontinued (Stop Taking at Discharge) Start: 11-22-2019 End: 12-22-2019 take 2 tablets by mouth twice daily methIMAzole (TAPAZOLE) 10 MG tablet Take 2 (two) tablets (20 mg total) by mouth 2 (two) times a day . 120 tablet 2 11/22/2019 12/08/2019 Discontinued (Reorder) Start: 11-20-2019 End: 12-18-2019 methIMAzole (TAPAZOLE) table t 20 mg Start: 11-12-2019 End: 11-19-2019 take 40 mg by mouth once daily 40 mg, Oral, Daily, [facility] dose on Alysa 11/13/19 at 0900 Start: 10-30-2019 End: 11-29-2019 take 4 tablets by mouth once daily methIMAzole (TAPAZOLE) 10 MG tablet Take 4 (four) tablets (40 mg total) by mouth daily . 120 tablet 2 10/30/2019 11/22/2019 Discontinued (Reorder) Start: 10-21-2019 End: 10-30-2019 methIMAzole (TAPAZOLE) table t 20 mg Comment on above: Take 1 tablet by elijah th three times daily. 24 hr metoprolol succinate 25 mg extended release oral tablet (3 sources) beta-Adrenergic Rahul Start: 11-01-2021 End: 12-01-2021 take 1 tablet by mouth once daily metoprolol succinate ER (TOPROL XL) 25 mg 24 hr tablet Take 1 tablet by mouth once daily. 30 tablet 0 11/01/2021 12/01/2021 Active Start: 10-28-2020 take 1 tablet by elijah th twice daily metoprolol tartrate (LOPRESSOR) 25 MG tablet Metoprolol Tartrate 25MG, Tablet two times daily # 60, 10/28/2020, No Refill. Active Oral two times daily; Duration: 0 10/28/2020 Active Comment on above: Take 1 tablet by elijah th once daily. naproxen 500 mg oral tablet (1 source) Nonsteroidal Anti-inflammatory Drug Start: 03-29-2023 take 1 tablet by mouth twice daily as needed for pain naproxen (NAPROSYN) 500 MG tablet Take 1 Tablet by mouth 2 times daily as needed for Pain. 30 Tablet 0 03/29/2023 Active Start: 03-29-2023 take 1 tablet by elijah th twice daily as needed for pain naproxen (NAPROSYN) 500 MG tablet Take 1 Tablet by mouth 2 times daily as needed for Pain. 30 Tablet 0 03/29/2023 Active 24 hr nicotine 0.875 mg/hr transdermal system (17 sources) Cholinergic Nicotinic Agonist Start: 09-25-2023 End: 10-25-2023 apply 1 dose transdermal route once daily nicotine (NICODERM CQ) 21 mg/[address] 1 (one) patch on the skin daily . 28 patch 0 09/25/2023 10/25/2023 Active Start: 08-21-2023 End: 09-20-2023 apply 1 dose transdermal route once daily nicotine (NICODERM CQ) 21 mg/[address] 1 (one) patch on the skin daily Start: 08/21/23. 28 patch 0 08/21/2023 09/20/2023 Suspended Start: 08-21-2023 End: 08-24-2023 nicotine (NICODERM CQ) 21 mg /24 hr 1 patch Start: 12-28-2019 End: 01-06-2020 nicotine (NICODERM CQ) 21 mg /24 hr 1 patch Start: 12-07-2019 End: 12-18-2019 take 2 mg oropharyngeal route every two hours as needed nicotine polacrilex (NICORETTE) gum 2 mg Start: 11-23-2019 End: 12-07-2019 nicotine (NICODERM CQ) 21 mg /24 hr 1 patch Start: 11-13-2019 End: 11-19-2019 nicotine (NICODERM CQ) 21 mg /24 hr 1 patch Start: 10-31-2019 End: 12-20-2019 apply 1 dose transdermal route once daily nicotine (NICODERM CQ) 21 mg/[address] 1 (one) patch on the skin daily Start: 11/20/19. 28 patch 0 11/20/2019 12/18/2019 Discontinued (Stop Taking at Discharge) Start: 10-20-2019 End: 10-30-2019 nicotine (NICODERM CQ) 21 mg /24 hr 1 patch Start: 06-03-2019 apply 1 dose transde rmal route once daily as needed 1 patch, Transdermal, Administer over 24 Hours, DAILY PRN, if patient smokes/requests nicotine replacent therapy, Starting Sun06/03/19 at 0933 Apply new patch to nonhairy, clean, dry skin on the upper body or upper outer arm. Rotate patch sites. Notify pharmacy if patient or provider prefers patch to be removed at bedtime and replaced in the morning. Hazardous Medication -- Refer to facility policy for handling and disposal. OLANZapine 10 mg oral tablet (19 sources) Atypical Antipsychotic Start: 09-25-2023 End: 10-25-2023 take 1 tablet by mouth twice daily in the morning OLANZapine (ZYPREXA) 10 MG tablet Take 1 (one) tablet (10 mg total) by mouth 2 (two) times a day . 60 tablet 09/25/2023 9:39 AM EDT 09/25/2023 Active Start: 11-21-2019 End: 11-22-2019 take 1 tablet by mouth every six hours as needed OLANZapine (ZYPREXA) tablet 10 mg 2 ml ondansetron 2 mg/ml injection (1 source) Serotonin-3 Receptor Antagonist Start: 06-03-2019 4 mg, Intravenous, EVERY 6 HOURS PRN, Nausea, Starting Sun06/03/19 at 0933 oxymetazoline hydrochloride 0.5 mg/ml nasal spray (2 sources) Start: 06-04-2019 End: 07-04-2019 oxymetazoline (AFRIN) 0.05 % nasal spray 1 spray by Nasal route 2 times daily as needed for Congestion 1 Bottle 0 06/04/2019 07/04/2019 Active Start: 06-03-2019 End: 06-05-2019 oxymetazoline (AFRIN) 0.05 % nasal spray 1 spray 1.5 ml paliperidone palmitate 156 mg/ml prefilled syringe (20 sources) Atypical Antipsychotic Start: 10-19-2023 End: 10-23-2024 paliperidone palmitate (Invega Sustenna) 234 mg/1.5 mL Syrg Inject 1.5 mL (234 mg total) into the shoulder, thigh, or buttocks every 28 days Start: 10/19/23. 1.5 mL 10/19/2023 10/23/2024 Discontinued Start: 10-19-2023 paliperidone p almitate (Invega Sustenna) 234 mg/1.5 mL Syrg Inject 1.5 mL (234 mg total) into the shoulder, thigh, or buttocks every 28 days Start: 10/19/23. 1.5 mL 0 10/19/2023 Active Start: 10-19-2023 paliperidone p almitate (Invega Sustenna) 234 mg/1.5 mL Syrg Inject 1.5 mL (234 mg total) into the shoulder, thigh, or buttocks every 28 days Start: 10/19/23. 1.5 mL 0 10/19/2023 Active Start: 08-21-2023 End: 08-24-2023 take 6 mg by mouth once daily 6 mg, Oral, Daily, First dose (after last modification) on Sun08/21/23 at 0900, DO NOT CRUSH OR CHEW. Start: 10-02-2021 Paliperidone P almitate (Invega Sustenna) 234 mg/1.5 mL Syringe Active MG IM October 02, 2021 12:00am Start: 10-28-2020 take 1 tablet by elijah th every twenty-four hours, then take 1 tablet by mouth at bedtime paliperidone (INVEGA) 6 MG 24 hr tablet Paliperidone ER( 6MG Oral 1 bedtime ) Active -Hx Entry Oral bedtime; Duration: 0 10/28/2020 Active Start: 12-27-2019 End: 01-06-2020 take 6 mg by mouth once daily 6 mg, Oral, Daily, First dose on 12/27/19 at 0900 DO NOT CRUSH OR CHEW. Start: 12-06-2019 End: 12-06-2019 paliperidone palmitate (INVE GA SUSTENNA) injection 234 mg Start: 11-21-2019 End: 12-18-2019 paliperidone (INVEGA) 24 hr tablet 6 mg Start: 11-13-2019 End: 11-19-2019 take 6 mg by mouth once daily in the morning 6 mg, Oral, Every morning, First dose on Alysa 11/13/19 at 0900 DO NOT CRUSH OR CHEW. Start: 10-29-2019 End: 10-29-2019 paliperidone palmitate (INVE GA SUSTENNA) injection 234 mg Start: 10-27-2019 End: 10-29-2019 paliperidone (INVEGA) 24 hr tablet 9 mg Start: 10-22-2019 End: 10-27-2019 paliperidone (INVEGA) 24 hr tablet 6 mg Start: 10-20-2019 End: 10-21-2019 take 3 mg by mouth once daily in the morning 3 mg, Oral, Every morning, First dose on Sun10/20/19 at 1600 DO NOT CRUSH OR CHEW. Start: 06-05-2019 take 1 tablet by elijah th once daily paliperidone (INVEGA) 3 MG extended release tablet Take 1 tablet by mouth daily 30 tablet 0 06/05/2019 Active Start: 06-03-2019 End: 10-30-2019 paliperidone (INVEGA) extend ed release tablet 3 mg Start: 08-20-2018 End: 12-01-2021 take 1 tablet by mouth once daily Take 1 (one) tablet (6 mg total) by mouth daily Start: 12/19/19., Starting Sun12/19/2019, Until Alysa 02/26/2020, Normal End: 12-18-2019 paliperidone palmitate (INVE GA SUSTENNA) 156 mg/mL Syrg Inject 156 mg into the shoulder, thigh, or buttocks every 28 days . 0 12/18/2019 Discontinued (Stop Taking at Discharge) Comment on above: Take 1 tablet by elijah th once daily. propranolol hydrochloride 40 mg oral tablet (20 sources) beta-Adrenergic Rahul Start: 05-08-2024 End: 05-08-2025 take 1 tablet by mouth every eight hours as needed propranoloL (INDERAL) 40 MG tablet Indications: Graves disease Take 1 (one) tablet (40 mg total) by mouth every 8 (eight) hours as needed if HR is >90 and hold if BP 60 tablet 11 05/08/2024 05/08/2025 Active Start: 11-22-2023 End: 05-08-2024 take 1 tablet by mouth every eight hours propranoloL (INDERAL) 60 MG tablet Take 1 (one) tablet (60 mg total) by mouth every 8 (eight) hours . 90 tablet 3 11/22/2023 05/08/2024 Discontinued Start: 11-02-2023 take 1 tablet by elijah th every eight hours propranoloL (INDERAL) 60 MG tablet Take 1 (one) tablet (60 mg total) by mouth every 8 (eight) hours . 90 tablet 3 11/02/2023 Active Start: 09-25-2023 End: 11-02-2023 take 1 tablet by mouth every eight hours propranoloL (INDERAL) 80 MG tablet Take 1 (one) tablet (80 mg total) by mouth every 8 (eight) hours . 90 tablet 09/25/2023 11/02/2023 Discontinued Start: 08-23-2023 End: 08-24-2023 propranoloL (INDERAL) tablet 80 mg Start: 08-21-2023 End: 08-23-2023 propranoloL (INDERAL) tablet 60 mg Start: 08-20-2023 End: 08-21-2023 take 40 mg by mouth every six hours 40 mg, Oral, Every 6 hours scheduled, First dose (after last modification) on Sun08/20/23 at 1300 Start: 11-21-2019 End: 12-08-2019 propranoloL (INDERAL) tablet 10 mg Start: 11-20-2019 propranoloL (I NDERAL) tablet 40 mg Start: 11-12-2019 End: 11-19-2019 take 10 mg by mouth every twelve hours 10 mg, Oral, Every 12 hours scheduled, First dose on Sun11/13/19 at 0900 Start: 10-30-2019 End: 12-18-2019 take 1 tablet by mouth every twelve hours propranoloL (INDERAL) 10 MG tablet Take 1 (one) tablet (10 mg total) by mouth every 12 (twelve) hours . 60 tablet 0 11/04/2019 12/18/2019 Discontinued (Stop Taking at Discharge) Start: 10-27-2019 End: 10-30-2019 propranoloL (INDERAL) tablet 10 mg pseudoephedrine hydrochloride 30 mg oral tablet (1 source) alpha-Adrenergic Agonist Start: 06-03-2019 pseudoephedrine (SUDAFED) tablet 30 mg purified protein derivative of tuberculin 50 unt/ml injectable solution (6 sources) Tuberculosis Skin Test, Skin Test Antigen tuberculin (Tubersol) 5 tub. unit /0.1 mL injection Inject 0.1 mL (5 Units total) into the skin once Sign this order in conjunction with the immunization order to satisfy [place] [employer] Positive ID requirements for immunization orders. . Active traZODone hydrochloride 50 mg oral tablet (20 sources) Serotonin Reuptake Inhibitor Start: 09-25-2023 End: 10-25-2023 take 1 tablet by mouth once daily as needed for sleep traZODone (DESYREL) 50 MG tablet Take 1 (one) tablet (50 mg total) by mouth nightly as needed for sleep . 30 tablet 09/25/2023 9:39 AM EDT 09/25/2023 Active Start: 11-22-2019 End: 12-18-2019 traZODone (DESYREL) tablet 5 0 mg Start: 11-12-2019 End: 11-19-2019 take 50 mg by mouth once daily as needed for sleep 50 mg, Oral, Nightly PRN, sleep, Starting Sun11/12/19 at 2031 [] May repeat once in 30 minutes if still awake. Start: 10-20-2019 End: 10-30-2019 traZODone (DESYREL) tablet 5 0 mg 24 hr divalproex sodium 500 mg extended release oral tablet (20 sources) Mood Stabilizer, Anti-epileptic Agent Start: 09-25-2023 End: 10-25-2023 take 1 tablet by mouth twice daily in the morning divalproex (DEPAKOTE ER) 500 MG 24 hr tablet Take 1 (one) tablet (500 mg total) by mouth 2 (two) times a day . 60 tablet 09/25/2023 9:39 AM EDT 09/25/2023 Active Start: 09-25-2023 End: 10-25-2023 take 1 tablet by mouth once daily divalproex (DEPAKOTE) 250 MG delayed release (DR) tablet Take 1 (one) tablet (250 mg total) by mouth nightly . 30 tablet 09/25/2023 9:39 AM EDT 09/25/2023 Active Start: 08-21-2023 End: 08-24-2023 take 500 mg by mouth once daily 500 mg, Oral, Daily, F irst dose (after last modification) on Sun08/21/23 at 0900, CATEGORY D HAZARDOUS DRUG use safe handling precautions. Use reference link to view PPE guidelines. DO NOT CRUSH OR CHEW. Start: 11-01-2021 End: 12-01-2021 take 1 tablet by mouth once daily divalproex DR (DEPAKOTE) 250 mg EC tablet Take 1 tablet by mouth once daily. 30 tablet 0 11/01/2021 12/01/2021 Active Start: 10-02-2021 take 1 tablet by elijah th twice daily Divalproex (Depakote) 250 mg Tablet,Delayed Release (Dr/Ec) Active 250 MG PO TWICE A DAY October 02, 2021 12:00am Start: 12-26-2019 End: 01-06-2020 take 500 mg by mouth once daily 500 mg, Oral, 2 times daily, First dose on Sun12/26/19 at 2330 CATEGORY D HAZARDOUS DRUG use safe handling precautions. Use reference link to view PPE guidelines. DO NOT CRUSH OR CHEW. Start: 12-18-2019 End: 01-17-2020 take 1 tablet by mouth twice daily divalproex (DEPAKOTE ER) 500 MG 24 hr tablet Take 1 (one) tablet (500 mg total) by mouth 2 (two) times a day . 60 tablet 0 12/18/2019 Suspended Start: 11-26-2019 End: 12-18-2019 divalproex (DEPAKOTE ER) 24 hr tablet 500 mg Comment on above: Take 1 tablet by elijah th once daily. Completed/Discontinued Medications Medication Drug Class(es) Dates Sig (Normalized) Sig (Original) acetaminophen 325 mg oral tablet (4 sources) Start: 11-20-2019 End: 12-18-2019 take 1 tablet by mouth every four hours as needed acetaminophen (TYLENOL) tablet 650 mg Start: 06-03-2019 650 mg, Oral, EVERY 4 HOURS PRN, Pain Mild (1-3), Fever, For temp greater than 100.5 F (38 C), Starting Tu06/03/19 at 0933 Maximum dose of acetaminophen is 4000 mg from all sources in 24 hours. Start: 06-03-2019 End: 06-03-2019 acetaminophen (TYLENOL) tabl et 1,000 mg albuterol 0.83 mg/ml inhalant solution (2 sources) beta2-Adrenergic Agonist Start: 11-18-2019 End: 11-19-2019 take 2.5 mg by inhalation every four hours as needed albuterol (PROVENTIL) 2.5 mg /3 mL (0.083 %) nebulizer solution 2.5 mg Start: 06-03-2019 2.5 mg, Nebuli zation, EVERY 2 HOURS PRN, Wheezing, Starting Sun06/03/19 at 0933 albuterol 0.833 mg/ml / ipratropium bromide 0.167 mg/ml inhalant solution (10 sources) Anticholinergic, beta2-Adrenergic Agonist Start: 11-21-2019 End: 11-22-2019 ipratropium-albuteroL (DUO-NEB) 0.5-2.5 mg/3 ml nebulizer solution 3 mL Start: 11-20-2019 End: 11-21-2019 take 3 mL by inhalation every two hours as needed 3 mL, Inhalation, Every 2 hour PRN (RT), wheezing, shortness of breath, Starting [facility] 11/20/19 at 1727 Start: 11-19-2019 End: 12-19-2019 take 3 mL by inhalation every four hours ipratropium-albuteroL (DUO-NEB) 0.5-2.5 mg/3 ml nebulizer Take 3 mL by nebulization every 4 (four) hours . 540 mL 0 11/19/2019 12/18/2019 Discontinued (Stop Taking at Discharge) Start: 11-17-2019 End: 11-19-2019 ipratropium-albuteroL (DUO-N EB) 0.5-2.5 mg/3 ml nebulizer solution 3 mL Start: 06-03-2019 1 ampule, Inha lation, EVERY 4 HOURS WHILE AWAKE, First dose on Sun06/03/19 at 1200 aluminum hydroxide 40 mg/ml / magnesium hydroxide 40 mg/ml / simethicone 4 mg/ml oral suspension (9 sources) Start: 11-22-2019 End: 12-18-2019 take 30 mL by mouth every four hours as needed aluminum-magnesium hydroxide-simethicone (MAALOX PLUS) 200-200-20 mg/5 mL suspension 30 mL Start: 11-12-2019 End: 11-19-2019 take 30 mL by mouth every four hours as needed 30 mL, Oral, Every 4 hours PRN, indigestion, Starting [facility] 11/12/19 at 2032 Start: 10-20-2019 End: 10-30-2019 take 30 mL by mouth every four hours as needed aluminum-magnesium hydroxide-simethicone (MAALOX PLUS) 200-200-20 mg/5 mL suspension 30 mL take 30 mL by mouth four times daily before mealtime aluminum-magnesium hydroxide-simethicone (MAALOX PLUS) 200-200-20 mg/5 mL Susp Take 30 mL by mouth 4 (four) times a day before meals and nightly . Active amphetamine aspartate 2.5 mg / amphetamine sulfate 2.5 mg / dextroamphetamine saccharate 2.5 mg / dextroamphetamine sulfate 2.5 mg oral tablet (2 sources) Central Nervous System Stimulant End: 10-30-2019 take 1 tablet by mouth once daily dextroamphetamine-amphetamine (ADDERALL) 10 mg tablet Take 10 mg by mouth daily (Days supply per fill: {DAYS SUPPLY:67554}) . 0 10/30/2019 Discontinued (Stop Taking at Discharge) End: 06-04-2019 take 1 tablet by mouth four times daily, then take 1 tablet by mouth, then take 1 tablet by mouth amphetamine-dextroamphetamine (ADDERALL, 10MG,) 10 MG tablet Take 10 mg by mouth 4 times daily. 0 06/04/2019 Discontinued (Stop Taking at Discharge) 2 ml benztropine mesylate 1 mg/ml injection (3 sources) Anticholinergic, Antihistamine Start: 11-12-2019 End: 11-19-2019 inject 2 mg by intramuscular injection every twenty-four hours as needed 2 mg, Intramuscular, Once as needed, acute dystonia, Starting Sun11/12/19 at 2031, For 1 dose [] and notify the physician. Start: 10-22-2019 End: 10-30-2019 benztropine (COGENTIN) table t 1 mg Start: 10-20-2019 End: 10-22-2019 inject 2 mg by intramuscular injection every twenty-four hours as needed benztropine (COGENTIN) injection 2 mg carvedilol 12.5 mg oral tablet (1 source) alpha-Adrenergic Rahul, beta-Adrenergic Rahul Start: 11-20-2019 End: 11-22-2019 take 12.5 mg by mouth twice daily at mealtime 12.5 mg, Oral, 2 times daily, First dose on Sun11/20/19 at 2100 Give carvedilol with food to reduce risk of hypotension / dizziness. Separate from admin of DARIUS inhibitors by two hours. cefTRIAXone (ROCEPHIN) 1 g IVPB in 50 mL D5W minibag (1 source) Start: 06-03-2019 End: 06-03-2019 cefTRIAXone (ROCEPHIN) 1 g IVPB in 50 mL D5W minibag diphenhydrAMINE (1 source) Histamine-1 Receptor Antagonist Start: 08-20-2023 End: 08-24-2023 take 50 mg intravenously every six hours as needed diphenhydrAMINE (BENADRYL) injection 50 mg 0.4 ml enoxaparin sodium 100 mg/ml prefilled syringe (3 sources) Low Molecular Weight Heparin Start: 08-20-2023 End: 08-24-2023 inject 40 mg by subcutaneous injection once daily 40 mg, Subcutaneous, Daily, First dose on Sun08/20/23 at 1200, Administer in abdomen unless otherwise directed by prescriber. Notify physician if patient refuses., Indication: VTE Prophylaxis Start: 12-27-2019 End: 01-06-2020 inject 40 mg by subcutaneous injection once daily 40 mg, Subcutaneous, Daily, First dose on Sun12/27/19 at 0800 Administer in abdomen unless otherwise directed by prescriber. Notify physician if patient refuses. Indication: VTE Prophylaxis Start: 06-03-2019 inject 40 mg by subc utaneous injection once daily 40 mg, Subcutaneous, DAILY, First dose on Sun06/03/19 at 1030 eszopiclone 3 mg oral tablet (1 source) End: 06-03-2019 take 1 tablet by mouth once daily eszopiclone (ESZOPICLONE) 3 MG TABS Take 3 mg by mouth nightly. 0 06/03/2019 Discontinued (LIST CLEANUP) gabapentin 300 mg oral capsule (1 source) Anti-epileptic Agent take 1 capsule by mouth four times daily gabapentin (NEURONTIN) 300 MG capsule Take 300 mg by mouth 4 times daily. 0 Suspended Haloperidol (11 sources) Typical Antipsychotic Start: 08-20-2023 End: 08-24-2023 take 5 mg intravenously every six hours as needed haloperidol lactate (HALDOL) injection 5 mg Start: 11-12-2019 End: 11-19-2019 take 1 tablet by mouth every four hours as needed haloperidoL (HALDOL) tablet 5 mg End: 10-23-2024 take 1 tablet by mouth four times daily haloperidoL (HALDOL) 5 MG tablet Take 1 (one) tablet (5 mg total) by mouth 4 (four) times a day . 10/23/2024 Discontinued hydrocortisone 100 mg injection (5 sources) Corticosteroid Start: 08-22-2023 End: 08-23-2023 hydrocortisone sod succ (SOLU-CORTEF) injection 50 mg Start: 08-20-2023 End: 08-22-2023 100 mg, Intravenous, Every 8 hours scheduled, First dose (after last modification) on Sun08/20/23 at 1400 Start: 08-20-2023 End: 08-20-2023 hydrocortisone sod succ (JOSIAS U-CORTEF) 100 mg/2 mL injection Infuse 6 mL (300 mg total) into a venous catheter once for 1 dose . 6 mL 0 08/20/2023 08/20/2023 Start: 08-20-2023 End: 08-20-2023 hydrocortisone sod succ (JOSIAS U-CORTEF) injection 300 mg Start: 11-20-2019 End: 11-21-2019 50 mg, Intravenous, Every 6 hours scheduled, First dose on Sun11/20/19 at 1800, For 4 doses Times 4 doses hydrOXYzine hydrochloride 50 mg oral tablet (15 sources) Antihistamine Start: 11-12-2019 End: 11-19-2019 take 1 tablet by mouth every six hours as needed 50 mg, Oral, Every 6 hours PRN, anxiety, Starting Sun11/12/19 at 2031 Start: 10-22-2019 End: 10-30-2019 take 1 tablet by mouth every six hours as needed hydrOXYzine (ATARAX) tablet 50 mg Start: 10-20-2019 End: 10-22-2019 inject 50 mg by intramuscular injection every six hours as needed hydrOXYzine (VISTARIL) injection 50 mg Start: 10-20-2019 End: 10-22-2019 take 1 tablet by mouth every six hours as needed hydrOXYzine (ATARAX) tablet 50 mg hydrOXYzine (VISTARIL) injection 50 mg (1 source) Start: 11-22-2019 End: 12-18-2019 inject 50 mg by intramuscular injection every six hours as needed hydrOXYzine (VISTARIL) injection 50 mg ipratropium bromide 0.2 mg/ml inhalant solution (3 sources) Anticholinergic Start: 11-14-2019 End: 11-17-2019 take 0.5 mg by inhalation every six hours as needed ipratropium (ATROVENT) 0.02 % nebulizer solution 0.5 mg 1 ml LORazepam 2 mg/ml injection (19 sources) Benzodiazepine Start: 11-21-2019 End: 11-22-2019 inject 2 mg by intramuscular injection every six hours as needed LORazepam (ATIVAN) injection 2 mg Start: 11-21-2019 End: 11-22-2019 take 1 tablet by mouth every six hours as needed LORazepam (ATIVAN) tablet 2 mg Start: 11-20-2019 End: 11-22-2019 take 1 mg intravenous route every two hours as needed 1 mg, Intravenous, Every 2 hour PRN, anxiety, seizures, agitation, Starting Alysa 11/20/19 at 1726 VESICANT Start: 10-21-2019 End: 10-21-2019 LORazepam (ATIVAN) 2 mg/mL injection - ADS Override Pull Start: 10-21-2019 End: 10-30-2019 take 1 tablet by mouth every four hours as needed LORazepam (ATIVAN) tablet 1 mg Start: 06-03-2019 LORazepam (ATI VAN) tablet 0.5 mg take 1 tablet by [facility] every six hours as needed for anxiety LORazepam (ATIVAN) 1 MG tablet Take 1 (one) tablet (1 mg total) by mouth every 6 (six) hours as needed for anxiety . Active magnesium hydroxide 80 mg/ml oral suspension (15 sources) Start: 11-22-2019 End: 12-18-2019 magnesium hydroxide (MOM) 40 0 mg/5 mL suspension 2,400 mg Start: 11-12-2019 End: 11-19-2019 take 2400 mg by mouth once daily as needed for constipation 2,400 mg (30 mL), Oral, Daily PRN, constipation, constipation, Starting 11/12/19 at 2031 Start: 10-20-2019 End: 10-30-2019 magnesium hydroxide (MOM) 40 0 mg/5 mL suspension 2,400 mg Start: 06-03-2019 take 30 mL by mouth once daily as needed for constipation 30 mL, Oral, DAILY PRN, Constipation, Starting 06/03/19 at 0933 First line therapy for constipation. take 30 mL by mouth once daily m agnesium hydroxide 400 mg/5 mL Susp Take 30 mL (2,400 mg total) by mouth daily . Active 50 ml magnesium sulfate 40 mg/ml injection (1 source) Start: 08-21-2023 End: 08-21-2023 magnesium sulfate 2 g in sterile water (SW) 50 mL IVPB methylPREDNISolone 125 mg injection (1 source) Corticosteroid Start: 11-20-2019 End: 11-20-2019 methylPREDNISolone sod suc(PF) (SOLU-medrol) Injection 125 mg OLANZapine (ZyPREXA) injection 10 mg (1 source) Start: 11-21-2019 End: 11-22-2019 inject 10 mg by intramuscular injection every six hours as needed OLANZapine (ZyPREXA) injection 10 mg ondansetron (ZOFRAN-ODT) disintegrating tablet 4 mg (2 sources) Start: 08-20-2023 End: 08-24-2023 take 1 tablet by mouth every six hours as needed for nausea and vomiting ondansetron (ZOFRAN-ODT) disintegrating tablet 4 mg Start: 11-20-2019 End: 11-22-2019 take 1 tablet by mouth every six hours as needed ondansetron (ZOFRAN-ODT) disintegrating tablet 4 mg microencapsulated potassium chloride 20 meq extended release oral tablet (2 sources) Start: 08-23-2023 End: 08-23-2023 potassium chloride SA (K-DUR,KLOR-CON) CR tablet 40 mEq Start: 08-21-2023 End: 08-21-2023 potassium chloride SA (K-DUR ,KLOR-CON) CR tablet 20 mEq potassium iodide 1000 mg/ml oral solution (3 sources) Start: 08-20-2023 End: 08-23-2023 5 drop, Oral, Every 6 hours scheduled, First dose (after last modification) on Sun08/20/23 at 1300, Start at least one hour after propylthiouracil or methimazole for thyrotoxicosis. May be very irritating to oral mucosa - consider mixing with 240mL of beverage and food to decrease irritation. Start: 10-21-2019 End: 10-28-2019 potassium iodide (SSKI) 1 gr am/mL solution 5 drop 1000 ml sodium chloride 9 mg/ml injection (13 sources) Start: 08-20-2023 End: 08-23-2023 take 100 mL intravenously every hour 100 mL/hr, Intravenous, Continuous, Starting on Sun08/20/23 at 1200 Start: 08-20-2023 End: 08-24-2023 sodium chloride (PF) (NS) fl ush 5 mL Start: 12-26-2019 End: 12-30-2019 sodium chloride 0.9% (NS) Start: 12-26-2019 End: 12-30-2019 take 200 mL intravenous route every hour 200 mL/hr, Intravenous, Continuous, Starting 12/26/19 at 2330 Start: 11-20-2019 End: 11-22-2019 take 50 mL intravenous route every hour 50 mL/hr, Intravenous, Continuous, Starting Alysa 11/20/19 at 1745 Start: 11-20-2019 End: 11-22-2019 sodium chloride (PF) (NS) fl ush 5 mL Start: 06-03-2019 Intravenous, a t 100 mL/hr, CONTINUOUS, Starting Sun06/03/19 at 1000 Start: 06-03-2019 10 mL, Intrave nous, EVERY 12 HOURS SCHEDULED (2 times per day), First dose on Sun06/03/19 at 1000 Start: 06-03-2019 take 10 mL intraveno us route once as needed 10 mL, Intravenous, PRN, Line Care, After every IV line use, Starting Sun06/03/19 at 0933 Start: 06-03-2019 End: 06-03-2019 0.9 % sodium chloride bolus ziprasidone 20 mg oral capsule (2 sources) Atypical Antipsychotic Start: 11-22-2019 End: 12-18-2019 ziprasidone (GEODON) capsule 20 mg Start: 10-22-2019 End: 10-30-2019 ziprasidone (GEODON) capsule 20 mg ziprasidone (GEODON) injecti on 20 mg (2 sources) Start: 11-22-2019 End: 12-18-2019 ziprasidone (GEODON) injecti on 20 mg Start: 10-20-2019 End: 10-22-2019 inject 20 mg by intramuscular injection every twelve hours as needed ziprasidone (GEODON) injection 20 mg zolpidem tartrate 10 mg oral tablet (1 source) gamma-Aminobutyric Acid-ergic Agonist take 5 mg by mouth once daily as needed for sleep zolpidem (AMBIEN) 10 MG tablet Take 5 mg by mouth nightly as needed for Sleep. 0 Suspended Problems Active Problems Problem Classification Problem Date Documented Date Episodic/Chronic Alcohol-related disorders (1 source) Alcohol intoxication; Translations: [Acute alcoholic intoxication with complication] 05-14-2018 Chronic Attention-deficit conduct and disruptive behavior disorders (2 sources) Attention deficit hyperactivity disorder, combined type; Translations: [Attention deficit hyperactivity disorder (ADHD), combined type] Onset: 04-28-2018 06-04-2019 Chronic Cardiac dysrhythmias (4 sources) Palpitations; Translations: [Palpitations] Onset: 05-29-2024 Episodic Essential hypertension (5 sources) Hypertensive disorder; Translations: [Essential (primary) hypertension] Onset: 11-01-2021 Chronic Fever of unknown origin (1 source) Fever; Translations: [Fever, unspecified fever cause] Episodic Influenza (2 sources) Influenza due to Influenza A virus; Translations: [Influenza A] Onset: 06-03-2019 06-04-2019 Episodic Mood disorders (3 sources) Bipolar I disorder; Translations: [Depressive disorder] Onset: 03-04-2018 Resolved: 04-28-2018 04-28-2018 Chronic Other screening for suspected conditions (not mental disorders or infectious disease) (1 source) Abnormal electrocardiogram [ECG] [EKG]; Translations: [Abnormal electrocardiogram [ECG] [EKG]] Onset: 06-02-2024 Episodic Personality disorders (1 source) Cluster B personality disorder ; Translations: [Cluster B personality disorder] 2018 Chronic Pneumonia (except that caused by tuberculosis or sexually transmitted disease) (2 sources) Infective pneumonia; Translations: [Pneumonia due to organism] Onset: 06-03-2019 06-04-2019 Episodic Poisoning by other medications and drugs (2 sources) Intentional drug overdose; Translations: [Gabapentin overdose] Onset: 2018 04-28-2018 Episodic Schizophrenia and other psychotic disorders (20 sources) Disorganized schizophrenia; Translations: [Schizoaffective disorder, bipolar type] Onset: 2018 Resolved: 10-21-2019 06-04-2019 Chronic Sprains and strains (1 source) Strain of knee; Translations: [Strain of unspecified muscle(s) and tendon(s) at lower leg level, left leg, initial encounter] 03-29-2023 Episodic Substance-related disorders (20 sources) Cannabis dependence; Translations: [Psychoactive substance abuse] Onset: 04-28-2018 04-28-2018 Chronic Suicide and intentional self-inflicted injury (1 source) Self-mutilation; 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] 03-06-2018 Chronic Suicide and intentional self-inflicted injury (1 source) Suicidal thoughts; Translations: [Suicidal ideation] 08-19-2018 Episodic Thyroid disorders (20 sources) Hyperthyroidism; Translations: [Thyrotoxic crisis] Onset: 10-20-2019 11-13-2019 Chronic Viral infection (2 sources) Disease due to Adenovirus; Translations: [Adenovirus infection] Onset: 06-03-2019 06-04-2019 Episodic Past or Other Problems Problem Classification Problem Date Documented Da te Episodic/Chronic Fluid and electrolyte disorders (5 sources) Hypokalemia; Translations: [Hyponatremia] Onset: 06-03-2019 Resolved: 06-04-2019 06-04-2019 Episodic Mood disorders (14 sources) Mood disorders Onset: 11-22-2019 Resolved: 01-04-2020 11-22-2019 Other connective tissue disease (1 source) Non-traumatic rhabdomyolysis; Translations: [Non-traumatic rhabdomyolysis] Episodic Other liver diseases (20 sources) Increased creatine kinase level; Translations: [Abnormal levels of other serum enzymes] Onset: 12-26-2019 12-26-2019 Episodic Residual codes; unclassified (1 source) Altered mental status; Translations: [Altered mental state] Onset: 05-13-2018 05-14-2018 Episodic Results Test Name Value Interpretation Reference Range Facility T3, FREEon 02-11-2025 Free T3 [Mass/Vol] 2.7 pg/mL Normal 2.3-4.2 [facility] Comment on above: Performed By: #### 8 66 899, [id number], 244 #### [facility] [place] [address] [employer] Advisor: Axel Szymanski MD T3, TOTALon 02-11-2025 T3, TOTAL 81 ng/dL Normal 76-181 [facility] Comment on above: Performed By: #### 8 66 899, 17838, 031 #### [facility] [address] [employer] Advisor: Axel Szymanski MD T4, FREEon 02-11-2025 Free T4 [Mass/Vol] 0.9 ng/dL Normal 0.8-1.8 [facility] Comment on above: Performed By: #### 8 66, 899, 84390, 859 #### [facility] [place] [address] [employer] Advisor: Axel Szymanski MD TSHon 02-11-2025 TSH Qn 3.99 m[IU]/L Normal 0.40-4.50 [facility] Comment on above: Performed By: #### 8 66, 899, 33649, 859 #### [facility] [place] [address] [employer] Advisor: Axel Szymanski MD T3, FREEon 10-24-2024 Free T3 [Mass/Vol] 3.8 pg/mL Normal 2.3-4.2 [facility] Comment on above: Performed By: #### 3 4429, 899, 866, 859 #### [facility] [place] [address] [employer] Advisor: Axel Szymanski MD T3, TOTALon 10-24-2024 T3, TOTAL 87 ng/dL Normal 76-181 [facility] Comment on above: Performed By: #### 3 4429, 899, 866, 859 #### [facility] [place] [address] [employer] Advisor: Axel Szymanski MD T4, FREE 10-24-2024 Free T4 [Mass/Vol] 1.4 ng/dL Normal 0.8-1.8 [facility] Comment on above: Performed By: #### 3 4429, 899, 866, 859 #### [facility] [place] [address] [employer] Advisor: Axel Szymanski MD TSHon 10-24-2024 TSH Qn 0.01 m[IU]/L Low 0.40-4.50 [facility] Comment on above: Performed By: #### 3 4429, 899, 866, 859 #### [facility] [place] [address] [employer] Advisor: Axel Szymanski MD TRABon 09-15-2024 TRAB 7.53 IU/L High <=2.00 [facility] Comment on above: Result Comment: This test was performed using the TRAb Antibody CARMEN method which is standardized against the 1st International Standard 90/672 and is reported in International Units (IU/L). The reference range reported was established specifically for this test method. Performed By: #### 8 66, 418, 83572, 480 #### [facility] [address], [address] [place], [place] [id number] [employer] Advisor: Axel Szymanski MD TSI (THYROID STIMULATING IMM UNOGLOBULIN)on 09-15-2024 TSI 169 % baseline High <140 [facility] Comment on above: Result Comment: Thyroid stimulating immunoglobulins (TSI) can engage the TSH receptors resulting in hyperthyroidism in Graves' disease patients. TSI levels can be useful in monitoring the clinical outcome of Graves' disease as well as assessing the potential for hyperthyroidism from maternal- transfer. TSI results greater than or equal to (>=) 140% of the Reference Control are considered positive. NOTE: A serum TSH level greater than 350 micro-International Units/mL can interfere with the TSI bioassay and potentially give false positive results. Patients who are and are suspected of having hyperthyroidism should have both TSI and human Chorionic Gonadotropin(hCG) tests measured. A serum hCG level greater than 40,625 mIU/mL can interfere with the TSI bioassay and may give false negative results. In these patients it is recommended that a second TSI be obtained when the hCG concentration falls below 40,625 mIU/mL (usually after approximately 20-weeks gestation). The analytical performance characteristics of this assay have been determined by [facility] [place], [place], [place]. The modifications have not been cleared or approved by the FDA. This assay has been validated pursuant to the CLIA regulations and is used for clinical purposes. Performed By: #### 8 66, 994, 39955, 830 #### [facility] [address], [address] [place], [place] [id number] [employer] Advisor: Axel Szymanski MD T3, FREEon 09-11-2024 Free T3 [Mass/Vol] 6.7 pg/mL High 2.3-4.2 [facility] Comment on above: Performed By: #### 8 66, 899, 29006, 859 #### [facility] [place] [address] [employer] Advisor: Axel Szymanski MD T3, TOTALon 09-11-2024 T3, TOTAL 201 ng/dL High 76-181 [facility] Comment on above: Performed By: #### 8 66, 899, 68997, 859 #### [facility] [place] [address] [employer] Advisor: Axel Szymanski MD T4, FREEon 09-11-2024 Free T4 [Mass/Vol] 2.7 ng/dL High 0.8-1.8 [facility] Comment on above: Performed By: #### 8 66, 899, 16574, 859 #### [facility] [place] [address] [employer] Advisor: Axel Szymanski MD TSHon 09-11-2024 TSH Qn 0.01 m[IU]/L Low 0.40-4.50 [facility] Comment on above: Performed By: #### 8 66, 899, 75245, 859 #### [facility] [place] [address] [employer] Advisor: Axel Szymanski MD CBC (INCLUDES DIFF/PLT)on Basophils (Bld) [#/Vol] 0.079 10*3/uL Normal 0-200 [facility] Comment on above: Performed By: #### 6 399, 899, 866 #### [facility] [place] [address] [employer] Advisor: Axel Szymanski MD Basophils/100 WBC (Bld) 0.8 % Normal [facility] Comment on above: Performed By: #### 6 399, 899, 866 #### [facility] [place] [address] [employer] Advisor: Axel Szymanski MD Eosinophils (Bld) [#/Vol] 0.089 10*3/uL Normal 15-500 [facility] Comment on above: Performed By: #### 6 399, 899, 866 #### [facility] [place] [address] [employer] Advisor: Axel Szymanski MD Eosinophils/100 WBC (Bld) 0.9 % Normal [facility] Comment on above: Performed By: #### 6 399, 899, 866 #### [facility] [place] [address] [employer] Advisor: Axel Szymanski MD Erythrocyte distribution width (RBC) [Ratio] 12.4 % Normal 11.0-15.0 [facility] Comment on above: Performed By: #### 6 399, 899, 866 #### [facility] [place] [address] [employer] Advisor: Axel Szymanski MD Hematocrit (Bld) [Volume fraction] 42.6 % Normal 38.5-50.0 [facility] Comment on above: Performed By: #### 6 399, 899, 866 #### [facility] [place] [address] [employer] Advisor: Axel Szymanski MD Hemoglobin (Bld) [Mass/Vol] 14.3 g/dL Normal 13.2-17.1 [facility] Comment on above: Performed By: #### 6 399, 899, 866 #### [facility] [place] [address] [employer] Advisor: Axel Szymanski MD Lymphocytes (Bld) [#/Vol] 4.227 10*3/uL High 850-3900 [facility] Comment on above: Performed By: #### 6 399, 899, 866 #### [facility] [place] [address] [employer] Advisor: Axel Szymanski MD Lymphocytes/100 WBC (Bld) 42.7 % Normal [facility] Comment on above: Performed By: #### 6 399, 899, 866 #### [facility] of [address], [address] [place] [address] [employer] Advisor: Axel Szymanski MD MCH (RBC) [Entitic mass] 31.5 pg Normal 27.0-33.0 [facility] Comment on above: Performed By: #### 6 399, 899, 866 #### [facility] of [address], [address] [place] [address] [employer] Advisor: Axel Szymanski MD MCHC (RBC) [Mass/Vol] 33.6 g/dL Normal 32.0-36.[address] [facility] Comment on above: Result Comment: For adults, a slight decrease in the calculated MCHC value (in the range of 30 to 32 g/dL) is most likely not clinically significant; however, it should be interpreted with caution in correlation with other red cell parameters and the patient's clinical condition. Performed By: #### 6 399, 899, 866 #### [facility] of [address], [address] [place] [address] [employer] Advisor: Axel Szymanski MD MCV (RBC) [Entitic vol] 93.8 fL Normal 80.0-100.0 [facility] Comment on above: Performed By: #### 6 399, 899, 866 #### [facility] [place] [address] [employer] Advisor: Axel Szymanski MD Monocytes (Bld) [#/Vol] 1.099 10*3/uL High 200-950 [facility] Comment on above: Performed By: #### 6 399, 899, 866 #### [facility] [place] [address] [employer] Advisor: Axel Szymanski MD Monocytes/100 WBC (Bld) 11.1 % Normal [facility] Comment on above: Performed By: #### 6 399, 899, 866 #### [facility] [place] [address] [employer] Advisor: Axel Szymanski MD Neutrophils (Bld) [#/Vol] 4.406 10*3/uL Normal 8743-4839 [facility] Comment on above: Performed By: #### 6 399, 899, 866 #### [facility] [place] [address] [employer] Advisor: Axel Szymanski MD Neutrophils/100 WBC (Bld) 44.5 % Normal [facility] Comment on above: Performed By: #### 6 399, 899, 866 #### [facility] [place] [address] [employer] Advisor: Axel Szymanski MD Platelet mean volume (Bld) [Entitic vol] 9.8 fL Normal 7.5-12.5 [facility] Comment on above: Performed By: #### 6 399, 899, 866 #### [facility] [place] [address] [employer] Advisor: Axel Szymanski MD Platelets (Bld) [#/Vol] 258 10*3/uL Normal 140-400 [facility] Comment on above: Performed By: #### 6 399, 899, 866 #### [facility] [place] [address] [employer] Advisor: Axel Szymanski MD RBC (Bld) [#/Vol] 4.54 10*6/uL Normal 4.20-5.80 [facility] Comment on above: Performed By: #### 6 399, 899, 866 #### [facility] [place] [address] [employer] Advisor: Axel Szymanski MD WBC (Bld) [#/Vol] 9.9 10*3/uL Normal 3.8-10.8 [facility] Comment on above: Performed By: #### 6 399, 899, 866 #### [facility] [place] [address] [employer] Advisor: Axel Szymanski MD T3, TOTALon 05-16-2024 T3, TOTAL 100 ng/dL Normal 76-181 [facility] Comment on above: Performed By: #### 6 399, 899, 866 #### [facility] [address], [address] [place] [address] [employer] Advisor: Axel Szymanski MD T4, FREEon 05-16-2024 Free T4 [Mass/Vol] 1.1 ng/dL Normal 0.8-1.8 [facility] Comment on above: Performed By: #### 8 66, 899, 28768, 859 #### [facility] [address], [address] [place] [address] [employer] Advisor: Axel Szymanski MD TSHon 05-16-2024 TSH Qn 0.12 m[IU]/L Low 0.40-4.50 [facility] Comment on above: Performed By: #### 8 66, 899, 26828, 859 #### [facility] [address], [address] [place] [address] [employer] Advisor: Axel Szymanski MD Echo Completeon 05-14-2024 Echo Complete [facility] [address] [place] [address] Echo Complete 05/14/24 1351 MR#: [id number] Acct: [id number] Name: ABA CARLTON Rep #: [id number] : 2000 24 From: Chino Kenny MD Attending Dr: Dr. Chino Kenny MD Status: BIANCA PEARSON Ordering Dr: Chino Kenny MD Date: 05/14/24 Location: [facility] Sex: M C Admitted: Reason For Study: ARRHYTHMIA Procedure This was a 2D Doppler, Color Flow transthoracic echocardiogram. Exam performed in department. Left Ventricle Normal LV size. Left ventricular systolic function is normal. The left ventricular ejection fraction is 60 %. No regional wall motion abnormalities noted. Right Ventricle Normal RV size. Normal systolic function. Atria Normal left atrium. Normal right atrium. Mitral Valve Normal mitral valve. Tricuspid Valve Normal tricuspid valve. Aortic Valve Trisinus/trileaflet aortic valve. Pulmonic Valve Normal pulmonic valve. Great Vessels Normal aortic root. The pulmonary artery is normal size. Normal inferior vena cava. Pericardium/Pleural No pericardial effusion. MMode/2D Measurements Calculations LVIDd: 4.7 cm IVSd: 1.0 cm LVOT diam: 2.2 cm LVIDs: 2.9 cm LVPWd: 1.0 cm LVOT area: 3.9 cm2 RVDd: 3.3 cm FS: 39.2 % asc Aorta Diam: 3.5 cm LAV(MOD-bp): 23.9 ml LVAd ap4: 27.9 cm2 LAV(MOD-bp) Indexed: 12.2 ml/m2 LVLd ap4: 8.4 cm LAV(MOD-sp2): 32.0 ml EDV(MOD-sp4): 79.7 ml LAV(MOD-sp4): 18.6 ml EDV(sp4-el): 78.7 ml LVAs ap4: 15.7 cm2 LVLs ap4: 6.7 cm ESV(MOD-sp4): 33.3 ml ESV(sp4-el): 31.3 ml EF(MOD-sp4): 58.3 % EF(sp4-el): 60.2 % LVAd ap2: 23.0 cm2 SV(MOD-sp4): 46.5 ml SV(MOD-sp2): 35.8 ml LVLd ap2: 7.6 cm SI(MOD-sp4): 23.8 ml/m2 SI(MOD-sp2): 18.3 ml/m2 EDV(MOD-sp2): 60.8 ml EDV(sp2-el): 58.6 ml LVAs ap2: 13.8 cm2 LVLs ap2: 6.3 cm ESV(MOD-sp2): 25.0 ml ESV(sp2-el): 25.7 ml EF(MOD-sp2): 58.9 % SV(sp4-el): 47.4 ml Ao sinus diam: 3.[address] Junction: 3.3 cm LA dimension(2D): 2.9 cm LA A4 area: 10.2 cm2 RA A4 area: 13.9 cm2 TAPSE: 1.5 cm Time Measurements MV dec time: 0.21 sec Doppler Measurements Calculations MV E max gabriel: 76.9 cm/sec Lat Peak E' Gabriel: 16.3 cm/sec Med Peak E' Gabriel: 12.3 cm/sec MV A max gabriel: 48.0 cm/sec E/E' lat: 4.7 E/E' med: 6.2 MV E/A: 1.6 MV dec slope: 368.0 cm/sec2 Ao V2 max: 131.1 cm/sec LV V1 max: 104.1 cm/sec Ao max P.9 mmHg LV V1 max P.3 mmHg Ao V2 mean: 100.7 cm/sec LV V1 mean P.4 mmHg Ao mean P.3 mmHg LV V1 mean: 72.2 cm/sec Ao V2 VTI: 23.0 cm LV V1 VTI: 19.0 cm AV (velocity ratio): 0.83 WAQAS(I,D): 3.2 cm2 WAQAS(V,D): 3.1 cm2 SV(LVOT): 73.9 ml PA V2 max: 94.1 cm/sec ECHO/Echo Complete Interpretation Summary Normal LV size. Left ventricular systolic function is normal. The left ventricular ejection fraction is 60 %. Structurally normal valves. Ordering Physician: Chino Kenny Referring Physician: Chino Kenny MD Performed By: Oksana Schaefer RDCS 05/14/24 1534 Date Chino Kenny MD CC: Dr. Chino Kenny MD; Dr. Amadeo Silver MD Date Dictated: 05/14/24 1351 Date Transcribed: 05/14/24 1534 Demand Generator Manager: Signed Normal [facility] 12 Lead EKG performed by [facility] on 04-23-2024 12 Lead EKG performed by [facility] [address] [place] [address] 12 Lead EKG performed by [facility] 04/23/24 1017 MR#: [id number] Acct: [id number] Name: ABA CARLTON Rep #: [id number] : 2000 23 From: Chino Kenny MD Attending Dr: Dr. Chino Kenny MD Status: DEP A MB Ordering Dr: Chino Kenny MD Date: 04/23/24 [place] [facility] [place] Sex: M C Admitted: BMS/12 Lead EKG performed by [facility] ECG Report Interpretation --Sinus Rhythm - Nonspecific T-abnormality. ABNORMAL Electronically signed on 04/23/2024 at 14:46 by Chino Kenny [employer] Version [id number] 04/23/24 1448 Date Chino Kenny MD CC: Dr. Amadeo Silver MD Date Dictated: 04/23/24 1017 Date Transcribed: 04/23/24 1017 Demand Generator Manager: [place] Signed Normal [facility] Cardiology Visit Reporton Cardiology Visit Report [facility] [address] [place] [address] OFFICE VISIT Date of Service: 04/23/24 MR#: [id number] Acct: [id number] Name: ABA CARLTON Rep #: [id number] : 2000 Provider: Dr. 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 He has been sent here to evaluate his palpitations. He has had a long history of noncompliance and has had blood work done intermittently which have demonstrated low TSH. He has been put on medication as well as beta-rahul. Now that he is in the [facility] he appears to be more compliant. He has had no neck arm or jaw discomfort suggest angina no dizziness or diaphoresis no near-syncope or syncope his physical exam is unremarkable his electrocardiogram demonstrates sinus rhythm with a rate of 71 bpm. His lipid profile demonstrates a total cholesterol 191 HDL of 27 LDL of 144. Intake Vital Signs 10/02/21 17:18 04/23/24 10:17 Height 5 ft 7 in 5 ft 7 in Weight: 191 lb BMI 29.9 BP 114/74 Blood Pressure Location Lt brachial Position Sitting Respiration 16 Pulse 77 Pulse Source Monitor Intake Visit Reasons: Tachycardia ([place]) Compliance Advisor Required: No Is patient in pain?: No Allergies No Known Allergies Allergy (Verified 08/24/21 20:31) Medications ???Medication ???Instructions ???Recorded ???Confirmed ???Type divalproex 250 mg tablet,delayed 250 mg PO QHS 03/20/24 04/23/24 History release (Depakote) divalproex 500 mg tablet,delayed 500 mg PO BID 03/20/24 04/23/24 History release (Depakote) hydrochlorothiazide 25 mg tablet 25 mg PO QAM 03/20/24 History hydroxyzine HCl 50 mg tablet 50 mg PO Q6H PRN 03/20/24 04/23/24 History lisinopril 10 mg tablet 10 mg PO QDAY 03/20/24 04/23/24 History lorazepam 1 mg tablet (Ativan) 1 mg PO TID PRN 03/20/24 04/23/24 History olanzapine 10 mg tablet 10 mg PO BID 03/20/24 04/23/24 History trazodone 50 mg tablet 50 mg PO QHS 03/20/24 04/23/24 History methimazole 10 mg tablet 10 mg PO .every other day 04/23/24 04/23/24 History methimazole 15 mg tablet 15 mg PO .every other day 04/23/24 04/23/24 History propranolol 20 mg tablet 60 mg PO TID 04/23/24 04/23/24 History Have you fallen in the past year?: No PFSH Medical History Impulsiveness Paranoid personality disorder Moderate protein malnutrition PVD (peripheral vascular disease) Suicidal ideations Hallucinations Patient's noncompliance with other medical treatment and regimen for other reason Palpitations Other psychoactive substance abuse, uncomplicated Tachycardia ADHD Antisocial personality disorder Schizo-affective schizophrenia Hyperthyroidism Hypertension Surgical History No history of previous surgery Social History Smoking Status: Current every day smoker tobacco type: cigarettes substance use type: marijuana ROS Const Const: Negative for fatigue, weakness, headache(s), daytime sleepiness or difficulty sleeping ENT ENT: Negative for headache(s), dizziness or Nosebleed/epistaxis Cardio Chest Pain: No Palpitations: No Edema: None Resp Respiratory: Negative for SOB with activity, SOB at rest, SOB orthopnea SOB lying down or Cough GI GI: Negative nausea, vomiting or heartburn Neuro Neuro: Negative for dizziness, lightheadedness, near syncope, headache(s) or weakness Endo Endo: Negative for fatigue Cardiology Exam Const Appearance: cooperative, healthy appearing, no acute distress, well developed and well groomed Nutritional Appearance: average body habitus and well nourished Orientation: alert, awake and oriented x3 Head Head: normal to inspection, normocephalic and atraumatic Ears: hearing grossly normal bilaterally and external ears normal Nose: external nose normal, nares normal, nasal mucous membranes and turbinates normal, septum normal and no nasal discharge Face and Sinus: face symmetric Mouth: oral mucosae normal, tongue normal, oropharynx normal and moist mucous membranes Teeth and gingiva: dentition normal Throat: posterior oropharynx normal, tonsils normal and uvula midline Eyes General: appearance normal, both eyes and all related structures Eyelids: eyelids normal Conjunctivae: conjunctivae normal Pupils: PERRL, normal by confrontation and accommodation normal EOM: EOM intact bilaterally Neck Neck: normal visual inspection, trachea midline and no JVD JVD: +5 Carotids: no (more content not included)... Normal [facility] CBC (INCLUDES DIFF/PLT)on Basophils (Bld) [#/Vol] 0.073 10*3/uL Normal 0-200 [facility] Comment on above: Performed By: #### 8 66, 899, 14795, 859 #### [facility] of [place] [address] [employer] Production Advisor: Axel Szymanski MD Basophils/100 WBC (Bld) 0.7 % Normal [facility] Comment on above: Performed By: #### 8 66, 899, 58813, 859 #### [facility] [place] [address] [employer] Advisor: Axel Szymanski MD Eosinophils (Bld) [#/Vol] 0.156 10*3/uL Normal 15-500 [facility] Comment on above: Performed By: #### 8 66, 899, 95939, 859 #### [facility] [place] [address] [employer] Advisor: Axel Szymanski MD Eosinophils/100 WBC (Bld) 1.5 % Normal [facility] Comment on above: Performed By: #### 8 66, 899, 08228, 859 #### [facility] [place] [address] [employer] Advisor: Axel Szymanski MD Erythrocyte distribution width (RBC) [Ratio] 12.3 % Normal 11.0-15.0 [facility] Comment on above: Performed By: #### 8 66, 899, 29234, 859 #### [facility] [place] [address] [employer] Advisor: Axel Szymanski MD Hematocrit (Bld) [Volume fraction] 44.6 % Normal 38.5-50.0 [facility] Comment on above: Performed By: #### 8 66, 899, 50058, 859 #### [facility] of [address], [address] [place] [address] [employer] Advisor: Axel Szymanski MD Hemoglobin (Bld) [Mass/Vol] 15.2 g/dL Normal 13.2-17.1 [facility] Comment on above: Performed By: #### 8 66, 899, 16778, 859 #### [facility] [place] [address] [employer] Advisor: Axel Szymanski MD Lymphocytes (Bld) [#/Vol] 4.503 10*3/uL High 850-3900 [facility] Comment on above: Performed By: #### 8 66, 899, 65013, 859 #### [facility] [place] [address] [employer] Advisor: Axel Szymanski MD Lymphocytes/100 WBC (Bld) 43.3 % Normal [facility] Comment on above: Performed By: #### 8 , 899, 83114, 859 #### [facility] [place] [address] [employer] Advisor: Axel Szymanski MD MCH (RBC) [Entitic mass] 31.8 pg Normal 27.0-33.0 [facility] Comment on above: Performed By: #### 8 , 899, 76754, 859 #### [facility] [place] [address] [employer] Advisor: Axel Szymanski MD MCHC (RBC) [Mass/Vol] 34.1 g/dL Normal 32.0-36.[address] [facility] Comment on above: Result Comment: For adults, a slight decrease in the calculated MCHC value (in the range of 30 to 32 g/dL) is most likely not clinically significant; however, it should be interpreted with caution in correlation with other red cell parameters and the patient's clinical condition. Performed By: #### 8 66, 899, 01967, 859 #### [facility] [place] [address] [employer] Advisor: Axel Szymanski MD MCV (RBC) [Entitic vol] 93.3 fL Normal 80.0-100.0 [facility] Comment on above: Performed By: #### 8 66, 899, 47670, 859 #### [facility] [place] [address] [employer] Advisor: Axel Szymanski MD Monocytes (Bld) [#/Vol] 0.988 10*3/uL High 200-950 [facility] Comment on above: Performed By: #### 8 66, 899, 68318, 859 #### [facility] [place] [address] [employer] Advisor: Axel Szymanski MD Monocytes/100 WBC (Bld) 9.5 % Normal [facility] Comment on above: Performed By: #### 8 66, 899, 77181, 859 #### [facility] [place] [address] [employer] Advisor: Axel Szymanski MD Neutrophils (Bld) [#/Vol] 4.68 10*3/uL Normal 4514-1353 [facility] Comment on above: Performed By: #### 8 66, 899, 81976, 859 #### [facility] [place] [address] [employer] Advisor: Axel Szymanski MD Neutrophils/100 WBC (Bld) 45 % Normal [facility] Comment on above: Performed By: #### 8 66, 899, 64774, 859 #### [facility] [place] [address] [employer] Advisor: Axel Szymanski MD Platelet mean volume (Bld) [Entitic vol] 9.6 fL Normal 7.5-12.5 [facility] Comment on above: Performed By: #### 8 66, 899, 01506, 859 #### [facility] [place] [address] [employer] Advisor: Axel Szymanski MD Platelets (Bld) [#/Vol] 272 10*3/uL Normal 140-400 [facility] Comment on above: Performed By: #### 8 66, 899, 44142, 859 #### [facility] [place] [address] [employer] Advisor: Axel Szymanski MD RBC (d) [#/Vol] 4.78 10*6/uL Normal 4.20-5.80 [facility] Comment on above: Performed By: #### 8 66, 899, 81310, 859 #### [facility] [place] [address] [employer] Advisor: Axel Szymanski MD WBC (d) [#/Vol] 10.4 10*3/uL Normal 3.8-10.8 [facility] Comment on above: Performed By: #### 8 66, 899, 36630, 859 #### [facility] [place] [address] [employer] Advisor: Axel Szymanski MD HEPATIC FUNCTION PANEL Albumin [Mass/Vol] 4.8 g/dL Normal 3.6-5.1 [facility] Comment on above: Order Comment: FASTI NG:NOFASTING: NO Performed By: #### 8 66, 899, 91511, 859 #### [facility] [place] [address] [employer] Advisor: Axel Szymanski MD Albumin/Globulin [Mass ratio] 2.0 {ratio} Normal 1.0-2.5 [facility] Comment on above: Order Comment: FASTI NG:NOFASTING: NO Performed By: #### 8 66, 899, 25271, 859 #### [facility] [place] [address] [employer] Advisor: Axel Szymanski MD ALP [Catalytic activity/Vol] 118 U/L Normal 36-130 [facility] Comment on above: Order Comment: FASTI NG:NOFASTING: NO Performed By: #### 8 66, 899, 45247, 859 #### [facility] [place] [address] [employer] Advisor: Axel Szymanski MD ALT [Catalytic activity/Vol] 15 U/L Normal 9-46 [facility] Comment on above: Order Comment: FASTI NG:NOFASTING: NO Performed By: #### 8 66, 899, 12691, 859 #### [facility] [place] [address] [employer] Advisor: Axel Szymanski MD AST [Catalytic activity/Vol] 13 U/L Normal 10-40 [facility] Comment on above: Order Comment: FASTI NG:NOFASTING: NO Performed By: #### 8 66, 899, 98241, 859 #### [facility] [place] [address] [employer] Advisor: Axel Szymanski MD Bilirubin [Mass/Vol] 0.2 mg/dL Normal 0.2-1.2 [facility] Comment on above: Order Comment: FASTI NG:NOFASTING: NO Performed By: #### 8 66, 899, 48933, 859 #### [facility] [place] [address] [employer] Advisor: Axel Szymanski MD BILIRUBIN, INDIRECT 0.1 mg/dL (calc) Low 0.2-1.2 [facility] Comment on above: Order Comment: FASTI NG:NOFASTING: NO Performed By: #### 8 66, 899, 87853, 859 #### [facility] [place] [address] [employer] Advisor: Axel Szymanski MD Bilirubin.indirect [Mass/Vol] 0.1 mg/dL Normal < OR = 0.2 [facility] Comment on above: Order Comment: FASTI NG:NOFASTING: NO Performed By: #### 8 66, 899, 18307, 859 #### [facility] [place] [address] [employer] Advisor: Axel Szymanski MD Globulin (S) [Mass/Vol] 2.4 g/dL Normal 1.9-3.7 [facility] Comment on above: Order Comment: FASTI NG:NOFASTING: NO Performed By: #### 8 66, 899, 94390, 859 #### [facility] [place] [address] [employer] Advisor: Axel Szymanski MD Protein [Mass/Vol] 7.2 g/dL Normal 6.1-8.1 [facility] Comment on above: Order Comment: FASTI NG:NOFASTING: NO Performed By: #### 8 66, 899, 36326, 859 #### [facility] [place] [address] [employer] Advisor: Axel Szymanski MD T3, FREEon 04-02-2024 Free T3 [Mass/Vol] 4.3 pg/mL High 2.3-4.2 [facility] Comment on above: Performed By: #### 8 66, 899, 98451, 859 #### [facility] [place] [address] [employer] Advisor: Axel Szymanski MD T3, TOTALon 04-02-2024 T3, TOTAL 110 ng/dL Normal 76-181 [facility] Comment on above: Performed By: #### 8 66, 899, 18459, 859 #### [facility] [place] [address] [employer] Advisor: Axel Szymanski MD T4, FREEon 04-02-2024 Free T4 [Mass/Vol] 1.4 ng/dL Normal 0.8-1.8 [facility] Comment on above: Performed By: #### 8 66, 899, 35712, 859 #### [facility] [place] [address] [employer] Advisor: Axel Szymanski MD TSHon 04-02-2024 TSH Qn 0.01 m[IU]/L Low 0.40-4.50 [facility] Comment on above: Performed By: #### 8 66, 899, 80431, 859 #### [facility] [address] [facility], [address] [place] [address] [employer] Advisor: Axel Szymanski MD CBC WITH AUTO DIFFERENTIALon 12-12-2023 AUTO NRBC 0.0 % Normal [facility] Comment on above: Performed By: #### L [id number] #### [facility] [address] [place] [address] Henry Haji M.D. [id number] AUTO NRBC ABS COUNT 0.00 K/mcL Normal 0.00-0.00 [facility] Comment on above: Performed By: #### L [id number] #### [facility] [address] [place] [address] Henry Haji M.D. [id number] BASOPHILS ABSOLUTE COUNT 0.08 K/mcL Normal 0.00-0.30 [facility] Comment on above: Performed By: #### L [id number] #### [facility] [address] [place] [address] Henry Haji M.D. [id number] Basophils/100 WBC (Bld) 0.9 % [facility] Comment on above: Performed By: #### L [id number] #### [facility] [address] [place] [address] Henry Haji M.D. [id number] Eosinophils (Bld) [#/Vol] 0.10 10*3/uL Normal 0.00-0.50 [facility] Comment on above: Performed By: #### L [id number] #### [facility] [address] [place] [address] Henry Haji M.D. [id number] Eosinophils/100 WBC (Bld) 1.2 % [facility] Comment on above: Performed By: #### L [id number] #### LAB [address] [place] [address] Henry Haji M.D. [id number] Erythrocyte distribution width (RBC) [Ratio] 13.6 % Normal 11.6-14.8 [facility] Comment on above: Performed By: #### L [id number] #### [facility] [address] [place] [address] Henry Haji M.D. [id number] Hematocrit (Bld) [Volume fraction] 43.5 % Normal 41.0-53.0 [facility] Comment on above: Performed By: #### L [id number] #### [facility] [address] [place] [address] Henry Haji M.D. [id number] Hemoglobin (Bld) [Mass/Vol] 14.3 g/dL Normal 13.5-17.5 [facility] Comment on above: Performed By: #### L [id number] #### [facility] [address] [place] [address] Henry Haji M.D. [id number] IG ABSOLUTE 0.03 K/mcL Normal 0.00-0.30 [facility] Comment on above: Performed By: #### L [id number] #### [facility] [address] [place] [address] Henry Haji M.D. [id number] IG PERCENT 0.40 % [facility] Comment on above: Result Comment: The IG parameter is the percentage of metamyelocytes, myelocytes and promyelocytes. An immature granulocyte count (IG) of 1% or more suggests the possibility of infection, an IG count of 3% is very likely related to an infection. Performed By: #### L [id number] #### [facility] [address] [place] [address] Henry Haji M.D. [id number] Lymphocytes (Bld) [#/Vol] 3.40 10*3/uL Normal 0.90-4.00 [facility] Comment on above: Performed By: #### L [id number] #### [facility] [address] [place] [address] Henry Haji M.D. [id number] Lymphocytes/100 WBC (Bld) 39.7 % Normal [facility] Comment on above: Performed By: #### L [id number] #### [facility] [address] [place] [address] Henry Haji M.D. [id number] MCH (RBC) [Entitic mass] 29.2 pg Normal 26.0-34.0 [facility] Comment on above: Performed By: #### L [id number] #### [facility] [address] [place] [address] Henry Haji M.D. [id number] MCV (RBC) [Entitic vol] 89.0 fL Normal 80.0-100.0 [facility] Comment on above: Performed By: #### L [id number] #### [facility] [address] [place] [address] Henry Haji M.D. [id number] MEAN CORPUSCULAR HEMOGLOBIN CONC 32.9 g/dL Normal 31.0-37.0 [facility] Comment on above: Performed By: #### L [id number] #### [facility] [address] [place] [address] Henry Haji M.D. [id number] Monocytes (Bld) [#/Vol] 0.98 10*3/uL High 0.30-0.90 [facility] Comment on above: Performed By: #### L [id number] #### [facility] [address] [place] [address] Henry Haji M.D. [id number] Monocytes/100 WBC (Bld) 11.4 % Normal [facility] Comment on above: Performed By: #### L [id number] #### [facility] [address] [place] [address] Henry Haji M.D. [id number] NEUTROPHILS ABSOLUTE COUNT 3.97 K/mcL Normal 1.70-7.00 [facility] Comment on above: Performed By: #### L [id number] #### [facility] [address] [place] [address] Henry Haji M.D. [id number] Neutrophils/100 WBC (Bld) 46.4 % Normal [facility] Comment on above: Performed By: #### L [id number] #### [facility] [address] [place] [address] Henry Haji M.D. [id number] Platelet mean volume (Bld) [Entitic vol] 10.3 fL Normal 9.4-12.4 [facility] Comment on above: Performed By: #### L [id number] #### [facility] [address] [place] [address] Henry Haji M.D. [id number] Platelets (Bld) [#/Vol] 237 10*3/uL Normal 150-400 [facility] Comment on above: Performed By: #### L [id number] #### [facility] [address] [place] [address] Henry Haji M.D. [id number] RBC (Bld) [#/Vol] 4.89 10*6/uL Normal 4.50-5.90 [facility] Comment on above: Performed By: #### L [id number] #### [facility] [address] [place] [address] Henry Haji M.D. [id number] WBC (Bld) [#/Vol] 8.56 10*3/uL Normal 4.50-11.00 [facility] Comment on above: Performed By: #### L [id number] #### [facility] [address] [place] [address] Henry Haji M.D. [id number] Hepatic function 2000 panelO rdered By: Jalil Wan on 12-12-2023 Albumin [Mass/Vol] 4.4 g/dL 3.2 - 5.2 g/dL [facility] ALP [Catalytic activity/Vol] 234 U/L High 40 - 140 U/L [facility] ALT [Catalytic activity/Vol] 31 U/L 0-50 U/L [facility] AST [Catalytic activity/Vol] 21 U/L 0-50 U/L [facility] Bilirubin [Mass/Vol] 0.3 mg/dL 0.0 - 1 .3 mg/dL [facility] Bilirubin.conjugated [Mass/Vol] mg/dL 0.0 - 0.4 mg/dL [facility] Interpretation and review of laboratory results Abnormal [facility] Protein [Mass/Vol] 7.4 g/dL 6.0 - 8.0 g/dL [facility] T3on 12-12-2023 T3 TOTAL 190 ng/dL High 72-170 [facility] Comment on above: Order Comment: T3 ( triiodothyronine) lab order---NOT a T3 uptake Please fax results to [place] [id number] Performed By: #### 4 [id number] #### [facility] [address] [place] [address] Henry Haji M.D. [id number] T4, FREEon 12-12-2023 Free T4 [Mass/Vol] 2.2 ng/dL High 0.7-1.7 [facility] Comment on above: Order Comment: Pleas e fax results to [place] [id number] Performed By: #### 4 6567 #### [facility] [address] [place] [address] Henry Haji M.D. [id number] TSHon 12-12-2023 TSH Qn 0.06 m[IU]/L Low 0.27-4.20 [facility] Comment on above: Order Comment: Pleas e fax results to [place] [address] Performed By: #### 4 6613 #### [facility] [address] [place] [address] Henry Haji M.D. [id number] CBC WITH AUTO DIFFERENTIALon 10-31-2023 AUTO NRBC 0.0 % Normal [facility] Comment on above: Performed By: #### L [id number] #### [facility] [address] [address] Henry Haji M.D. [id number] AUTO NRBC ABS COUNT 0.00 K/mcL Normal 0.00-0.00 [facility] Comment on above: Performed By: #### L [id number] #### [facility] [address] [place] [address] Henry Haji M.D. [id number] BASOPHILS ABSOLUTE COUNT 0.07 K/mcL Normal 0.00-0.30 [facility] Comment on above: Performed By: #### L [id number] #### [facility] [address] [place] [address] Henry Haji M.D. [id number] Basophils/100 WBC (Bld) 0.7 % Normal [facility] Comment on above: Performed By: #### L [id number] #### [facility] [address] [place] [address] Henry Haji M.D. [id number] Eosinophils (Bld) [#/Vol] 0.20 10*3/uL Normal 0.00-0.50 [facility] Comment on above: Performed By: #### L [id number] #### [facility] [address] [place] [address] Henry Haji M.D. [id number] Eosinophils/100 WBC (Bld) 2.1 % Normal [facility] Comment on above: Performed By: #### L [id number] #### [facility] [address] [place] [address] Henry Haji M.D. [id number] Erythrocyte distribution width (RBC) [Ratio] 12.6 % Normal 11.6-14.8 [facility] [facility] Comment on above: Performed By: #### L [id number] #### LAB [address] [place] [address] Henry Haji M.D. [id number] Hematocrit (Bld) [Volume fraction] 44.7 % Normal 41.0-53.0 [facility] Comment on above: Performed By: #### L [id number] #### MH LAB [address] [address] Henry Haji M.D. [id number] Hemoglobin (Bld) [Mass/Vol] 14.6 g/dL Normal 13.5-17.5 [facility] Comment on above: Performed By: #### L [id number] #### LAB [address] [address] Henry Haji M.D. [id number] IG ABSOLUTE 0.03 K/mcL Normal 0.00-0.30 [facility] Comment on above: Performed By: #### L [id number] #### LAB [address] [address] Henry Haji M.D. [id number] IG PERCENT 0.30 % Normal [facility] Comment on above: Result Comment: The IG parameter is the percentage of metamyelocytes, myelocytes and promyelocytes. An immature granulocyte count (IG) of 1% or more suggests the possibility of infection, an IG count of 3% is very likely related to an infection. Performed By: #### L [id number] #### LAB [address] [address] Henry Haji M.D. [id number] Lymphocytes (Bld) [#/Vol] 3.37 10*3/uL Normal 0.90-4.00 [facility] Comment on above: Performed By: #### L [id number] #### LAB [address] [address] Henry Haji M.D. [id number] Lymphocytes/100 WBC (Bld) 35.3 % Normal [facility] Comment on above: Performed By: #### L [id number] #### LAB [address] [address] Henry Haji M.D. [id number] MCH (RBC) [Entitic mass] 29.9 pg Normal 26.0-34.0 [facility] Comment on above: Performed By: #### L [id number] #### LAB [address] [address] Henry Haji M.D. [id number] MCV (RBC) [Entitic vol] 91.4 fL Normal 80.0-100.0 [facility] Comment on above: Performed By: #### L [id number] #### LAB [address] [address] Henry Haji M.D. [id number] MEAN CORPUSCULAR HEMOGLOBIN CONC 32.7 g/dL Normal 31.0-37.0 [facility] Comment on above: Performed By: #### L [id number] #### LAB [address] [address] Henry Haji M.D. [id number] Monocytes (Bld) [#/Vol] 0.87 10*3/uL Normal 0.30-0.90 [facility] Comment on above: Performed By: #### L [id number] #### LAB [address] [address] Henry Haji M.D. [id number] Monocytes/100 WBC (Bld) 9.1 % Normal [facility] Comment on above: Performed By: #### L [id number] #### LAB [address] [address] Henry Haji M.D. [id number] NEUTROPHILS ABSOLUTE COUNT 5.01 K/mcL Normal 1.70-7.00 [facility] Comment on above: Performed By: #### L [id number] #### LAB [address] [address] Henry Haji M.D. [id number] Neutrophils/100 WBC (Bld) 52.5 % Normal [facility] Comment on above: Performed By: #### L [id number] #### LAB [address] [address] Henry Haji M.D. [id number] Platelet mean volume (Bld) [Entitic vol] 10.3 fL Normal 9.4-12.4 [facility] Comment on above: Performed By: #### L [id number] #### LAB [address] [address] Henry Haji M.D. [id number] Platelets (Bld) [#/Vol] 247 10*3/uL Normal 150-400 [facility] Comment on above: Performed By: #### L [id number] #### LAB [address] [address] Henry Haji M.D. [id number] RBC (Bld) [#/Vol] 4.89 10*6/uL Normal 4.50-5.90 [facility] Comment on above: Performed By: #### L [id number] #### MH LAB [address] [place], [place] [address] Henry Haji M.D. [id number] WBC (Bld) [#/Vol] 9.55 10*3/uL Normal 4.50-11.00 [facility] Comment on above: Performed By: #### L [id number] #### LAB [address] [place], [place] [address] Henry Haji M.D. [id number] Hepatic function 2000 panelO rdered By: Mimi Connelly on 10-31-2023 Albumin [Mass/Vol] 4.3 g/dL 3.2 - 5.2 g/dL [facility] ALP [Catalytic activity/Vol] 250 U/L High 40 - 140 U/L [facility] ALT [Catalytic activity/Vol] 17 U/L 0-50 U/L [facility] AST [Catalytic activity/Vol] 21 U/L 0-50 U/L [facility] Bilirubin [Mass/Vol] mg/dL 0.0 - 1 .3 mg/dL [facility] Bilirubin.conjugated [Mass/Vol] mg/dL 0.0 - 0.4 mg/dL [facility] Interpretation and review of laboratory results Abnormal [facility] Protein [Mass/Vol] 7.2 g/dL 6.0 - 8.0 g/dL [facility] No Panel Informationon 10-30 Interpretation and review of laboratory results Abnormal [facility] T3on 10-31-2023 T3 [Mass/Vol] 73 ng/dL 72 - 170 ng/dL [facility] T3 [Mass/Vol]on 10-31-2023 Interpretation and review of laboratory results Normal [facility] T4, freeon 10-31-2023 Free T4 [Mass/Vol] 0.3 ng/dL Low 0.7 - 1.7 ng/dL [facility] TSH DL <= 0.005 mIU/L Qnon 0 - TSH Qn 0.04 m[IU]/L Low [facility] CBC Auto Differentialon 08-14 Erythrocyte distribution width (RBC) [Entitic vol] 16.5 % High 11.6 - 14.8 % [facility] Hematocrit (Bld) [Volume fraction] 31.4 % Low 41.0 - 53.0 % [facility] Hemoglobin (Bld) [Mass/Vol] 9.9 g/dL Low 13.5 - 17.5 g/dL [facility] MCH (RBC) [Entitic mass] 28.1 pg 26.0 - 34.0 pg [facility] MCHC (RBC) [Mass/Vol] 31.5 g/dL 31.0 - 37.0 g/dL [facility] MCV (RBC) [Entitic vol] 89.2 fL 80.0 - 100.0 fL [facility] Nucleated RBC (Bld) [#/Vol] 0.05 10*3/uL High [facility] Nucleated RBC/100 WBC (Bld) [Ratio] 0.5 % [facility] Platelet mean volume (Bld) [Entitic vol] 9.5 fL 9.4 - 12.4 fL [facility] Platelets (Bld) [#/Vol] 223 10*3/uL [facility] RBC (Bld) [#/Vol] 3.52 10*6/uL Low [facility] ealt WBC (Bld) [#/Vol] 10.66 10*3/uL [facility] CBC and Diff Morphologyon Polychromasia LM Ql (Bld) Few [facility] RBC morphology finding Nom (Bld) See Comment [facility] Comment on above: RBC Indices confirme d with manual peripheral smear review. Comprehensive metabolic 2000 panelon 08-24-2023 Albumin [Mass/Vol] 3.2 g/dL 3.2 - 5.2 g/dL [facility] ALP [Catalytic activity/Vol] 97 U/L 40 - 140 U/L [facility] ALT [Catalytic activity/Vol] 64 U/L High 0-50 U/L [facility] Anion gap [Moles/Vol] 11 mmol/L 10 - 2 0 mmol/L [facility] AST [Catalytic activity/Vol] 26 U/L 0-50 U/L [facility] Bilirubin [Mass/Vol] 0.3 mg/dL 0.0 - 1 .3 mg/dL [facility] Calcium [Mass/Vol] 8.7 mg/dL 8.4 - 10. 2 mg/dL [facility] Chloride [Moles/Vol] 108 mmol/L 98 - 10 8 mmol/L [facility] Creatinine [Mass/Vol] 0.33 mg/dL Low 0.50 - 1.30 mg/dL [facility] GFR/1.73 sq M.predicted CKD-EPI (S/P/Bld) [Vol rate/Area] 165 - PINF [facility] Comment on above: Estimated GFR was ca lculated using the 2020 CKD-EPI creatinine equation. Glucose [Mass/Vol] 91 mg/dL 65 - 99 mg/dL [facility] HCO3 [Moles/Vol] 26 mmol/L 21 - 32 mmol/L [facility] Potassium [Moles/Vol] 4.1 mmol/L 3.5 - 5.1 mmol/L [facility] Protein [Mass/Vol] 5.1 g/dL Low 6.0 - 8.0 g/dL [facility] Sodium [Moles/Vol] 141 mmol/L 135 - 145 mmol/L [facility] Urea nitrogen [Mass/Vol] 13 mg/dL 8 - 25 mg/dL [facility] Urea nitrogen/Creatinine [Mass ratio] 39.4 mg/mg High 10.0 - 20.0 [facility] has implemented the eGFR calculation approach that does not have a coefficient for race that conforms to the NKF-ASN Task Force Recommendations. [facility] Magnesium Levelon 08-24-2023 Magnesium [Mass/Vol] 1.7 mg/dL 1.6 - 2 .4 mg/dL [facility] Magnesium [Mass/Vol]on 08-23 Interpretation and review of laboratory results Normal [facility] Manual Differential panel (B ld)on 08-24-2023 Basophils (Bld) [#/Vol] 0.09 10*3/uL [facility] Basophils/100 WBC (Bld) 0.8 % [facility] Eosinophils (Bld) [#/Vol] 0.18 10*3/uL [facility] Eosinophils/100 WBC (Bld) 1.7 % [facility] Lymphocytes (Bld) [#/Vol] 5.93 10*3/uL High [facility] Lymphocytes/100 WBC (Bld) 55.6 % [facility] Monocytes (Bld) [#/Vol] 1.00 10*3/uL High [facility] Monocytes/100 WBC (Bld) 9.4 % [facility] Neutrophils (Bld) [#/Vol] 3.46 10*3/uL [facility] Neutrophils/100 WBC (Bld) 32.5 % [facility] Nucleated RBC (Bld) [#/Vol] 0.10 10*3/uL High [facility] Nucleated RBC/100 WBC (Bld) [Ratio] 1 % [facility] No Panel Informationon 08-23 Interpretation and review of laboratory results Abnormal [facility] Interpretation and review of laboratory results Abnormal [facility] Phosphoruson 08-24-2023 Phosphate [Mass/Vol] 5.2 mg/dL High 2.7 - 4 .5 mg/dL [facility] T4, Freeon 08-24-2023 Free T4 [Mass/Vol] 2.9 ng/dL High 0.7 - 1.7 ng/dL [facility] Thyrotropin Receptor Antibod yon 08-24-2023 Interpretation and review of laboratory results Abnormal [facility] Thyrotropin Receptor Ab 29 High [facility] Comment on above: ADDITIONAL INFORMATION At a decision limit of 1.75 IU/L, this assay has 97% sensitivity and 99% specificity for detection of Graves' disease. In healthy individuals and in patients with thyroid disease without diagnosis of Graves' disease, the upper limit of anti-TSHR values are 1.22 IU/L and 1.58 IU/L, respectively (97.5th percentiles). Test Performed by: [place] [address] Publication Designer: Zia Bustamante M.D. Ph.D.; CLIA# [id number] [facility] CBC Auto Differentialon Basophils (Bld) [#/Vol] 0.04 10*3/uL [facility] Basophils/100 WBC (Bld) 0.4 % [facility] Eosinophils (Bld) [#/Vol] 0.05 10*3/uL [facility] Eosinophils/100 WBC (Bld) 0.4 % [facility] Erythrocyte distribution width (RBC) [Entitic vol] 16.4 % High 11.6 - 14.8 % [facility] Hematocrit (Bld) [Volume fraction] 30.4 % Low 41.0 - 53.0 % [facility] Hemoglobin (Bld) [Mass/Vol] 9.8 g/dL Low 13.5 - 17.5 g/dL [facility] Immature granulocytes (Bld) [#/Vol] 0.13 10*3/uL [facility] Immature granulocytes/100 WBC (Bld) 1.20 % [facility] Comment on above: The IG parameter is the percentage of metamyelocytes, myelocytes and promyelocytes. An immature granulocyte count (IG) of 1% or more suggests the possibility of infection, an IG count of 3% is very likely related to an infection. Interpretation and review of laboratory results Abnormal [facility] Lymphocytes (Bld) [#/Vol] 5.06 10*3/uL High [facility] Lymphocytes/100 WBC (Bld) 45.1 % [facility] MCH (RBC) [Entitic mass] 28.7 pg 26.0 - 34.0 pg [facility] MCHC (RBC) [Mass/Vol] 32.2 g/dL 31.0 - 37.0 g/dL [facility] MCV (RBC) [Entitic vol] 89.1 fL 80.0 - 100.0 fL [facility] Monocytes (Bld) [#/Vol] 1.10 10*3/uL High [facility] Monocytes/100 WBC (Bld) 9.8 % [facility] Neutrophils (Bld) [#/Vol] 4.83 10*3/uL [facility] Neutrophils/100 WBC (Bld) 43.1 % [facility] Nucleated RBC (Bld) [#/Vol] 0.04 10*3/uL High [facility] Nucleated RBC/100 WBC (Bld) [Ratio] 0.4 % [facility] Platelet mean volume (Bld) [Entitic vol] 9.5 fL 9.4 - 12.4 fL [facility] Platelets (Bld) [#/Vol] 219 10*3/uL [facility] RBC (Bld) [#/Vol] 3.41 10*6/uL Low [facility] ealth WBC (Bld) [#/Vol] 11.21 10*3/uL High [facility] Comprehensive metabolic 2000 panelon 08-23-2023 Albumin [Mass/Vol] 3.0 g/dL Low 3.2 - 5.2 g/dL [facility] ALP [Catalytic activity/Vol] 96 U/L 40 - 140 U/L [facility] ALT [Catalytic activity/Vol] 60 U/L High 0-50 U/L [facility] Anion gap [Moles/Vol] 12 mmol/L 10 - 2 0 mmol/L [facility] AST [Catalytic activity/Vol] 20 U/L 0-50 U/L [facility] Bilirubin [Mass/Vol] mg/dL 0.0 - 1 .3 mg/dL [facility] Calcium [Mass/Vol] 8.6 mg/dL 8.4 - 10. 2 mg/dL [facility] Chloride [Moles/Vol] 108 mmol/L 98 - 10 8 mmol/L [facility] Creatinine [Mass/Vol] 0.36 mg/dL Low 0.50 - 1.30 mg/dL [facility] GFR/1.73 sq M.predicted CKD-EPI (S/P/Bld) [Vol rate/Area] 160 - PINF [facility] Comment on above: Estimated GFR was ca lculated using the 2020 CKD-EPI creatinine equation. Glucose [Mass/Vol] 102 mg/dL High 65 - 99 mg/dL [facility] HCO3 [Moles/Vol] 25 mmol/L 21 - 32 mmol/L [facility] Potassium [Moles/Vol] 3.4 mmol/L Low 3.5 - 5.1 mmol/L [facility] Protein [Mass/Vol] 4.8 g/dL Low 6.0 - 8.0 g/dL [facility] Sodium [Moles/Vol] 142 mmol/L 135 - 145 mmol/L [facility] Urea nitrogen [Mass/Vol] 18 mg/dL 8 - 25 mg/dL [facility] Urea nitrogen/Creatinine [Mass ratio] 50.0 mg/mg High 10.0 - 20.0 [facility] has implemented the eGFR calculation approach that does not have a coefficient for race that conforms to the NKF-ASN Task Force Recommendations. [facility] Magnesium Levelon 08-23-2023 Magnesium [Mass/Vol] 1.7 mg/dL 1.6 - 2 .4 mg/dL [facility] Magnesium [Mass/Vol]on 08-22 Interpretation and review of laboratory results Normal [facility] No Panel Informationon 08-22 Interpretation and review of laboratory results Abnormal [facility] Phosphoruson 08-23-2023 Phosphate [Mass/Vol] 5.2 mg/dL High 2.7 - 4 .5 mg/dL [facility] T3on 08-23-2023 T3 [Mass/Vol] 189 ng/dL High 72 - 170 ng/dL [facility] T3 [Mass/Vol]on 08-23-2023 Interpretation and review of laboratory results Abnormal [facility] T4, Freeon 08-23-2023 Free T4 [Mass/Vol] 3.4 ng/dL High 0.7 - 1.7 ng/dL [facility] CBC Auto Differentialon Basophils (Bld) [#/Vol] 0.03 10*3/uL [facility] Basophils/100 WBC (Bld) 0.3 % [facility] Eosinophils (Bld) [#/Vol] 0.02 10*3/uL [facility] Eosinophils/100 WBC (Bld) 0.2 % [facility] Erythrocyte distribution width (RBC) [Entitic vol] 16.5 % High 11.6 - 14.8 % [facility] Hematocrit (Bld) [Volume fraction] 30.7 % Low 41.0 - 53.0 % [facility] Hemoglobin (Bld) [Mass/Vol] 9.8 g/dL Low 13.5 - 17.5 g/dL [facility] Immature granulocytes (Bld) [#/Vol] 0.05 10*3/uL [facility] Immature granulocytes/100 WBC (Bld) 0.40 % [facility] Comment on above: The IG parameter is the percentage of metamyelocytes, myelocytes and promyelocytes. An immature granulocyte count (IG) of 1% or more suggests the possibility of infection, an IG count of 3% is very likely related to an infection. Interpretation and review of laboratory results Abnormal [facility] Lymphocytes (Bld) [#/Vol] 3.93 10*3/uL [facility] Lymphocytes/100 WBC (Bld) 33.1 % [facility] MCH (RBC) [Entitic mass] 28.3 pg 26.0 - 34.0 pg [facility] MCHC (RBC) [Mass/Vol] 31.9 g/dL 31.0 - 37.0 g/dL [facility] MCV (RBC) [Entitic vol] 88.7 fL 80.0 - 100.0 fL [facility] Monocytes (Bld) [#/Vol] 1.22 10*3/uL High [facility] Monocytes/100 WBC (Bld) 10.3 % [facility] Neutrophils (Bld) [#/Vol] 6.61 10*3/uL [facility] Neutrophils/100 WBC (Bld) 55.7 % [facility] Nucleated RBC (Bld) [#/Vol] 0.00 10*3/uL [facility] Nucleated RBC/100 WBC (Bld) [Ratio] 0.0 % [facility] Platelet mean volume (Bld) [Entitic vol] 9.8 fL 9.4 - 12.4 fL [facility] Platelets (Bld) [#/Vol] 210 10*3/uL [facility] RBC (Bld) [#/Vol] 3.46 10*6/uL Low [facility] ealth WBC (Bld) [#/Vol] 11.86 10*3/uL High [facility] Comprehensive metabolic 2000 panelon 08-22-2023 Albumin [Mass/Vol] 3.2 g/dL 3.2 - 5.2 g/dL [facility] ALP [Catalytic activity/Vol] 105 U/L 40 - 140 U/L [facility] ALT [Catalytic activity/Vol] 69 U/L High 0-50 U/L [facility] Anion gap [Moles/Vol] 12 mmol/L 10 - 2 0 mmol/L [facility] AST [Catalytic activity/Vol] 25 U/L 0-50 U/L [facility] Bilirubin [Mass/Vol] 0.2 mg/dL 0.0 - 1 .3 mg/dL [facility] Calcium [Mass/Vol] 8.7 mg/dL 8.4 - 10. 2 mg/dL [facility] Chloride [Moles/Vol] 109 mmol/L High 98 - 10 8 mmol/L [facility] Creatinine [Mass/Vol] 0.34 mg/dL Low 0.50 - 1.30 mg/dL [facility] GFR/1.73 sq M.predicted CKD-EPI (S/P/Bld) [Vol rate/Area] 163 - PINF [facility] Comment on above: Estimated GFR was ca lculated using the 2020 CKD-EPI creatinine equation. Glucose [Mass/Vol] 109 mg/dL High 65 - 99 mg/dL [facility] HCO3 [Moles/Vol] 24 mmol/L 21 - 32 mmol/L [facility] Potassium [Moles/Vol] 3.9 mmol/L 3.5 - 5.1 mmol/L [facility] Protein [Mass/Vol] 5.1 g/dL Low 6.0 - 8.0 g/dL [facility] Sodium [Moles/Vol] 141 mmol/L 135 - 145 mmol/L [facility] Urea nitrogen [Mass/Vol] 15 mg/dL 8 - 25 mg/dL [facility] Urea nitrogen/Creatinine [Mass ratio] 44.1 mg/mg High 10.0 - 20.0 [facility] has implemented the eGFR calculation approach that does not have a coefficient for race that conforms to the NKF-ASN Task Force Recommendations. [facility] Magnesium Levelon 08-22-2023 Magnesium [Mass/Vol] 1.8 mg/dL 1.6 - 2 .4 mg/dL [facility] Magnesium [Mass/Vol]on 08-21 Interpretation and review of laboratory results Normal [facility] No Panel Informationon 08-21 Interpretation and review of laboratory results Abnormal [facility] Phosphoruson 08-22-2023 Phosphate [Mass/Vol] 5.0 mg/dL High 2.7 - 4 .5 mg/dL [facility] T3on 08-22-2023 T3 [Mass/Vol] 217 ng/dL High 72 - 170 ng/dL [facility] T3 [Mass/Vol]on 08-22-2023 Interpretation and review of laboratory results Abnormal [facility] T4, Freeon 08-22-2023 Free T4 [Mass/Vol] 5.2 ng/dL High 0.7 - 1.7 ng/dL [facility] CBC Auto Differentialon Basophils (Bld) [#/Vol] 0.02 10*3/uL [facility] Basophils/100 WBC (Bld) 0.2 % [facility] Eosinophils (Bld) [#/Vol] 0.01 10*3/uL [facility] Eosinophils/100 WBC (Bld) 0.1 % [facility] Erythrocyte distribution width (RBC) [Entitic vol] 16.5 % High 11.6 - 14.8 % [facility] Hematocrit (Bld) [Volume fraction] 32.4 % Low 41.0 - 53.0 % [facility] Hemoglobin (Bld) [Mass/Vol] 10.7 g/dL Low 13.5 - 17.5 g/dL [facility] Immature granulocytes (Bld) [#/Vol] 0.04 10*3/uL [facility] Immature granulocytes/100 WBC (Bld) 0.50 % [facility] Comment on above: The IG parameter is the percentage of metamyelocytes, myelocytes and promyelocytes. An immature granulocyte count (IG) of 1% or more suggests the possibility of infection, an IG count of 3% is very likely related to an infection. Interpretation and review of laboratory results Abnormal [facility] Lymphocytes (Bld) [#/Vol] 2.17 10*3/uL [facility] Lymphocytes/100 WBC (Bld) 25.5 % [facility] MCH (RBC) [Entitic mass] 28.8 pg 26.0 - 34.0 pg [facility] MCHC (RBC) [Mass/Vol] 33.0 g/dL 31.0 - 37.0 g/dL [facility] MCV (RBC) [Entitic vol] 87.1 fL 80.0 - 100.0 fL [facility] Monocytes (Bld) [#/Vol] 0.34 10*3/uL [facility] Monocytes/100 WBC (Bld) 4.0 % [facility] Neutrophils (Bld) [#/Vol] 5.93 10*3/uL [facility] Neutrophils/100 WBC (Bld) 69.7 % [facility] Nucleated RBC (Bld) [#/Vol] 0.00 10*3/uL [facility] Nucleated RBC/100 WBC (Bld) [Ratio] 0.0 % [facility] Platelet mean volume (Bld) [Entitic vol] 9.7 fL 9.4 - 12.4 fL [facility] Platelets (Bld) [#/Vol] 224 10*3/uL [facility] RBC (Bld) [#/Vol] 3.72 10*6/uL Low [facility] WBC (Bld) [#/Vol] 8.51 10*3/uL [facility] Comprehensive metabolic 2000 panelOrdered By: Radha Brennan on 08-21-2023 Albumin [Mass/Vol] 3.3 g/dL 3.2 - 5.2 g/dL [facility] ALP [Catalytic activity/Vol] 109 U/L 40 - 140 U/L [facility] ALT [Catalytic activity/Vol] 79 U/L High 0-50 U/L [facility] Anion gap [Moles/Vol] 14 mmol/L 10 - 2 0 mmol/L [facility] AST [Catalytic activity/Vol] 57 U/L High 0-50 U/L [facility] Bilirubin [Mass/Vol] 0.3 mg/dL 0.0 - 1 .3 mg/dL [facility] Calcium [Mass/Vol] 8.6 mg/dL 8.4 - 10. 2 mg/dL [facility] Chloride [Moles/Vol] 109 mmol/L High 98 - 10 8 mmol/L [facility] Creatinine [Mass/Vol] 0.51 mg/dL 0.50 - 1.30 mg/dL [facility] GFR/1.73 sq M.predicted CKD-EPI (S/P/Bld) [Vol rate/Area] 144 - PINF [facility] Comment on above: Estimated GFR was ca lculated using the 2020 CKD-EPI creatinine equation. Glucose [Mass/Vol] 186 mg/dL High 65 - 99 mg/dL [facility] HCO3 [Moles/Vol] 22 mmol/L 21 - 32 mmol/L [facility] Potassium [Moles/Vol] 3.7 mmol/L 3.5 - 5.1 mmol/L [facility] Protein [Mass/Vol] 5.5 g/dL Low 6.0 - 8.0 g/dL [facility] Sodium [Moles/Vol] 141 mmol/L 135 - 145 mmol/L [facility] Urea nitrogen [Mass/Vol] 13 mg/dL 8 - 25 mg/dL [facility] Urea nitrogen/Creatinine [Mass ratio] 25.5 mg/mg High 10.0 - 20.0 [facility] has implemented the eGFR calculation approach that does not have a coefficient for race that conforms to the NKF-ASN Task Force Recommendations. [facility] Free T4 [Mass/Vol]Ordered By : Kusum Staples on 08-21-2023 Interpretation and review of laboratory results Abnormal [facility] Magnesium Levelon 08-21-2023 Magnesium [Mass/Vol] 2.0 mg/dL 1.6 - 2 .4 mg/dL [facility] Magnesium [Mass/Vol] 1.7 mg/dL 1.6 - 2 .4 mg/dL [facility] Magnesium [Mass/Vol]on 08-20 Interpretation and review of laboratory results Normal [facility] No Panel Informationon 08-20 Interpretation and review of laboratory results Normal [facility] No Panel InformationOrdered By: Radha Brennan on 08-21-2023 Interpretation and review of laboratory results Abnormal [facility] Phosphoruson 08-21-2023 Phosphate [Mass/Vol] 1.8 mg/dL Low 2.7 - 4 .5 mg/dL [facility] Potassium Levelon 08-21-2023 Potassium [Moles/Vol] 4.5 mmol/L 3.5 - 5.1 mmol/L [facility] T4, FreeOrdered By: Kusum webster on 08-21-2023 Free T4 [Mass/Vol] ng/dL High 0.7 - 1.7 ng/dL [facility] Basic metabolic 2000 panelOr dered By: Evette Chavez on 08-20-2023 Anion gap [Moles/Vol] 16 mmol/L 10 - 2 0 mmol/L [facility] Calcium [Mass/Vol] 9.3 mg/dL 8.4 - 10. 2 mg/dL [facility] Chloride [Moles/Vol] 105 mmol/L 98 - 10 8 mmol/L [facility] Creatinine [Mass/Vol] 0.49 mg/dL Low 0.50 - 1.30 mg/dL [facility] GFR/1.73 sq M.predicted CKD-EPI (S/P/Bld) [Vol rate/Area] 146 - PINF [facility] Comment on above: Estimated GFR was ca lculated using the 2020 CKD-EPI creatinine equation. Glucose [Mass/Vol] 132 mg/dL High 65 - 99 mg/dL [facility] HCO3 [Moles/Vol] 23 mmol/L 21 - 32 mmol/L [facility] Interpretation and review of laboratory results Abnormal [facility] Potassium [Moles/Vol] 4.7 mmol/L 3.5 - 5.1 mmol/L [facility] Sodium [Moles/Vol] 139 mmol/L 135 - 145 mmol/L [facility] Urea nitrogen [Mass/Vol] 23 mg/dL 8 - 25 mg/dL [facility] Urea nitrogen/Creatinine [Mass ratio] 46.9 mg/mg High 10.0 - 20.0 [facility] has implemented the eGFR calculation approach that does not have a coefficient for race that conforms to the NKF-ASN Task Force Recommendations. [facility] CBC panel Auto (Bld)on 08-19 Erythrocyte distribution width (RBC) [Entitic vol] 15.8 % High 11.6 - 14.8 % [facility] Hematocrit (Bld) [Volume fraction] 38.5 % Low 41.0 - 53.0 % [facility] Hemoglobin (Bld) [Mass/Vol] 12.6 g/dL Low 13.5 - 17.5 g/dL [facility] Interpretation and review of laboratory results Abnormal [facility] MCH (RBC) [Entitic mass] 28.6 pg 26.0 - 34.0 pg [facility] MCHC (RBC) [Mass/Vol] 32.7 g/dL 31.0 - 37.0 g/dL [facility] MCV (RBC) [Entitic vol] 87.3 fL 80.0 - 100.0 fL [facility] Nucleated RBC (Bld) [#/Vol] 0.00 10*3/uL [facility] Nucleated RBC/100 WBC (Bld) [Ratio] 0.0 % [facility] Platelet mean volume (Bld) [Entitic vol] 9.8 fL 9.4 - 12.4 fL [facility] Platelets (Bld) [#/Vol] 254 10*3/uL [facility] RBC (Bld) [#/Vol] 4.41 10*6/uL [facility] WBC (Bld) [#/Vol] 9.14 10*3/uL [facility] Magnesiumon 08-20-2023 Magnesium [Mass/Vol] 1.6 mg/dL 1.6 - 2 .4 mg/dL [facility] Magnesium [Mass/Vol]on 08-19 Interpretation and review of laboratory results Normal [facility] ED Provider Noteson 03-29-20 Community Service Organization Director Authentication Interface Message Text EMERGENCY DEPARTMENT - VISIT NOTE ------ HISTORY OF PRESENT ILLNESS -- Chief Complaint Patient presents with Knee symptoms/complaints L knee pain x1 day The history is provided by the Patient. Aba Carlton is a 22 year old male presenting to the ED for Left knee pain x this AM, denies trauma, +ambulatory. Pt denies: fever, or numbness/tingling Sick Contacts: none Home Treatment: none PAST HISTORY Past Medical History: reviewed Surgical History: reviewed Social History: +smoker. I have provided 3 minutes of smoking cessation counseling to this patient including Advising patient on the health risks of smoking. The patient indicated that he's okay with smoking. Family History: reviewed The patient's home medications have been reviewed. Allergies: NKDA PHYSICAL EXAM BP 118/75 Pulse 100 Temp 97.3 ???F (36.3 ???C) Resp 18 SpO2 96% General: NAD Head: Normocephalic Eyes: No conjunctival injection or eye discharge, lids normal Neck: FROM Neuro: Awake, alert, active CVS: RRR Lungs: CTA bilaterally Skin: warm and dry Musculoskeletal: Left knee: No obvious deformity, +generalized inferior-medial tenderness to palpation, no bony tenderness, no swelling, no ecchymosis/erythema/warm th. Active and passive ROM are WNL, full flexion, strength is normal, no knee instability on testing anterior and posterior cruciate ligaments, and medial and lateral collateral ligaments. Distal sensation intact. PT 2+. MEDICAL DECISION MAKING and ED COURSE Nursing triage and assessment notes reviewed and incorporated. Management Decisions: Left Knee Xray considered but not performed due to no bony tenderness, no neurofocal deficit, no acute signs of DVT or infection, and the pt is ambulating without difficulty. Diagnoses considered include Strain/Sprain, Infection, Gout, Arthralgia, Fracture Medication Management: Medications prescribed - see visit medications. Course: none Assessment AND Plan: Left Knee Strain Distal extremity is neurovascularly intact. Discussed symptom control and reasons to return to the ED. F/u with PCP/PM AND R. ------ IMPRESSION AND DISPOSITION ---- Clinical Impression Diagnosis Comment Knee strain, left, initial encounter [I99.047G] Disposition: Home The patient has received a medical screening examination and within reasonable clinical confidence an emergency medical condition has not been identified. Counseling: Spoke with the patient and discussed today's findings, in addition to providing specific details for the plan of care and expected course. They were given the opportunity to ask questions. Discussed return precautions and importance of follow-up. Advised to follow-up with PCP/PM AND R. Advised to return to the ED for changing or worsening symptoms, new symptoms, complaint specific precautions, and precautions listed on the discharge paperwork. Educated on the common potential side effects of medications prescribed. ED Prescriptions: naproxen Damir Elliott, MVA STILL OPERATOR-COMPLAINT INVESTIGATIONS OFFICER Normal [facility] Absolute lymphocyte counton 10-02-2021 Lymphocytes Auto (Unsp spec) [#/Vol] 4.01 10*3/uL 0.83-4.51 [facility] Work Phone: [phone] Basophil percentageon 2021 Basophils/100 WBC (Bld) 0.7 % 0-1 [facility] Work Phone: [phone] Chloride [Moles/Vol] 111 mmol/L 98-107 [facility] Work Phone: [phone] Eosinophils/100 WBC (Bld) 0.8 % 0-5 [facility] Work Phone: [phone] Glucose [Mass/Vol] 102 mg/dL 74-106 [facility] Work Phone: Comment on above: Fasting Glucose resu lt from 100 to 125 mg/dL suggests IMPAIRED HOMEOSTASIS per A.D.A. criteria. Neutrophils (Bld) [#/Vol] 2.6 10*3/uL 2.0-7.7 [facility] Work Phone: Neutrophils/100 WBC (Bld) 36.0 % 47-70 [facility] Work Phone: [phone] Potassium [Moles/Vol] 3.9 mmol/L 3.5-5.1 [facility] Work Phone: [phone] Sodium [Moles/Vol] 139 mmol/L 136-145 [facility] Work Phone: WBC (Bld) [#/Vol] 7.3 10*3/uL 4.4-11.0 [facility] Work Phone: Blood erythrocytes count (nu mber/volume)on 10-02-2021 RBC (Bld) [#/Vol] 4.78 10*6/uL 4.6-6.2 [facility]: Blood hemoglobin measurement (mass/volume)on 10-02-2021 Hemoglobin (Bld) [Mass/Vol] 14.1 g/dL 13.0-16.5 [facility] Work Phone: Blood lymphocytes/100 leukoc yteson 10-02-2021 Lymphocytes/100 WBC (Bld) 54.6 % 19-41 [facility] Work Phone: Blood monocytes/100 leukocyt eson 10-02-2021 Monocytes/100 WBC (Bld) 7.8 % 0-10 [facility] Work Phone: Blood platelet mean volumeon 10-02-2021 Platelet mean volume (Bld) [Entitic vol] 9.8 fL 6.2-12.0 [facility] Work Phone: Determination of erythrocyte mean corpuscular volume (MCV)on 10-02-2021 MCV (RBC) [Entitic vol] 88.5 fL 80-94 [facility] Work Phone: Hematocrit Auto (Bld) [Volum e fraction]on 10-02-2021 Hematocrit (Bld) [Volume fraction] 42.3 % 40-54 [facility] Work Phone: Laboratory - Chemistry and C hemistry - challengeon 10-02-2021 CO2 [Moles/Vol] 22.0 mmol/L 21.0-32.0 [facility] Work Phone: Urea nitrogen/Creatinine [Mass ratio] 27.8 mg/mg 10-20 [facility] Work Phone: Laboratory - Hematology and Cell countson 10-02-2021 Erythrocyte distribution width (RBC) [Entitic vol] 41.2 fL 35.1-43.9 [facility] Work Phone: Erythrocyte distribution width (RBC) [Ratio] 12.5 % 11.6-14.6 [facility] Work Phone: Immature granulocytes/100 WBC (Bld) 0.100 % 0.0-0.9 [facility] Work Phone: Comment on above: IG% - Immature Granu locytes (promyelocytes, myelocytes and metamyelocytes) > 1% indicates that a LEFT SHIFT is Present. MCH (RBC) [Entitic mass] 29.5 pg 27.0-32.0 [facility] Work Phone: Nucleated RBC/100 WBC (Bld) [Ratio] 0 % 0-5 [facility] Work Phone: MCHC Auto (RBC) [Mass/Vol]on 10-02-2021 MCHC (RBC) [Mass/Vol] 33.3 g/dL 32-36 [facility] Work [facility]: No Panel Informationon 10-02 Estimated Creatinine Clearance Calc 171.28 ml/min [facility] Work Phone: Estimated GFR (MDRD) Amer 262 mL/min >60 [facility] Work Phone: Comment on above: GFR Calc Estimated GFR (MDRD) Non-Af Amer 217 mL/min >60 [facility] Work Phone: Comment on above: Non- GFR Calc Thyroid Stimulating Hormone (TSH) < 0.01 uIU/mL 0.358-3.74 [facility] Work Phone: Troponin I High Sensitivity < 3 pg/mL 3.0-78.0 [facility] Work Phone: Comment on above: Please Note: New Rosario t Units and Gender Specific Reference Ranges. For more information see Policy Stat Procedure [place] High Sensitivity Troponin (TNIH) and attachments. Valproic Acid (Depakene) Level < 3 ug/mL 50-100 [facility] Work Phone: Platelets bldon 10-02-2021 Platelets (Bld) [#/Vol] 237 10*3/uL 150-450 [facility] Work Phone: Serum or plasma calcium fady urement (mass/volume)on 10-02-2021 Calcium [Mass/Vol] 8.8 mg/dL 8.5-10.1 [facility] Work Phone: Serum or plasma creatinine m easurement (mass/volume)on 10-02-2021 Creatinine [Mass/Vol] 0.50 mg/dL 0.70-1.30 [facility] Work Phone: Comment on above: The validity of the calculated GFR & GFRAA in patients over 70 years has not been determined. Clinical correlation is essential. Serum or plasma urea nitroge n measurement (mass/volume)on 10-02-2021 Urea nitrogen [Mass/Vol] 14 mg/dL 7-18 [facility] Work Phone: Thin prep Papanicolaou smear with manual screeningon 10-02-2021 Thin prep Papanicolaou smear with manual screening 6 5-15 [facility] Work Phone: Absolute lymphocyte counton 08-24-2021 Lymphocytes Auto (Unsp spec) [#/Vol] 5.54 10*3/uL 0.83-4.51 [facility] Work Phone: Basophil percentageon 2021 Basophils/100 WBC (Bld) 0.4 % 0-1 [facility] Work Phone: Bilirubin [Mass/Vol] 0.20 mg/dL 0.20-1.00 [facility] Work Phone: Comment on above: For patients on eltr ombopag therapy, use of Dimension [place] TBIL is not recommended. Chloride [Moles/Vol] 110 mmol/L 98-107 [facility] Work Phone: Eosinophils/100 WBC (Bld) 1.1 % 0-5 [facility] Work Phone: Glucose [Mass/Vol] 104 mg/dL 74-106 [facility] Work Phone: Comment on above: Fasting Glucose resu lt from 100 to 125 mg/dL suggests IMPAIRED HOMEOSTASIS per A.D.A. criteria. Neutrophils (Bld) [#/Vol] 4.9 10*3/uL 2.0-7.7 [facility] Work Phone: Neutrophils/100 WBC (Bld) 42.9 % 47-70 [facility] Work Phone: Potassium [Moles/Vol] 3.7 mmol/L 3.5-5.1 [facility] Work Phone: Protein [Mass/Vol] 6.4 g/dL 6.4-8.2 [facility] Work Phone: Sodium [Moles/Vol] 141 mmol/L 136-145 [facility] Work Phone: WBC (Bld) [#/Vol] 11.5 10*3/uL 4.4-11.0 [facility] Work Phone: Blood erythrocytes count (nu mber/volume)on 08-24-2021 RBC (Bld) [#/Vol] 4.40 10*6/uL 4.6-6.2 [facility] Work Phone: Blood hemoglobin measurement (mass/volume)on 08-24-2021 Hemoglobin (Bld) [Mass/Vol] 12.9 g/dL 13.0-16.5 [facility] Work Phone: Blood lymphocytes/100 leukoc yteson 08-24-2021 Lymphocytes/100 WBC (Bld) 48.1 % 19-41 [facility] Work Phone: Blood manual differential co mment interpretation (narrative result)on 08-24-2021 Manual differential comment Pedro (Bld) [Interp] SCANNED [facility] Work Phone: Comment on above: LYMPHOCYTOSIS NOTED Blood monocytes/100 leukocyt eson 08-24-2021 Monocytes/100 WBC (Bld) 7.3 % 0-10 [facility] Work Phone: Blood platelet mean volumeon 08-24-2021 Platelet mean volume (Bld) [Entitic vol] 8.9 fL 6.2-12.0 [facility] Work Phone: Determination of erythrocyte mean corpuscular volume (MCV)on 08-24-2021 MCV (RBC) [Entitic vol] 87.3 fL 80-94 [facility] Work Phone: Hematocrit Auto (Bld) [Volum e fraction]on 08-24-2021 Hematocrit (Bld) [Volume fraction] 38.4 % 40-54 [facility] Work Phone: Laboratory - Chemistry and C hemistry - challengeon 08-24-2021 ALP [Catalytic activity/Vol] 169 U/L 45-117 [facility] Work Phone: ALT [Catalytic activity/Vol] 28 U/L 16-61 [facility] Work Phone: CO2 [Moles/Vol] 26.0 mmol/L 21.0-32.0 [facility] Work Phone: Globulin (S) [Mass/Vol] 2.9 g/dL 2.2-4.2 [facility] Work Phone: Urea nitrogen/Creatinine [Mass ratio] 23.7 mg/mg 10-20 [facility] Work Phone: Laboratory - Drug toxicology on 08-24-2021 Amphetamines Ql (U) Negative <1000 ng/mL [facility] Work Phone: Benzodiazepines Ql (U) Negative < 200 ng/mL [facility] Work Phone: Cannabinoids Screen Ql (U) Positive < 50 ng/mL [facility] Work Phone: Cocaine Ql (U) Negative < 300 ng/mL [facility] Work Phone: Opiates Ql (U) Negative < 300 ng/mL [facility] Work Phone: Laboratory - Hematology and Cell countson 08-24-2021 Erythrocyte distribution width (RBC) [Entitic vol] 42.5 fL 35.1-43.9 [facility] Work Phone: Erythrocyte distribution width (RBC) [Ratio] 13.2 % 11.6-14.6 [facility] Work Phone: Immature granulocytes/100 WBC (Bld) 0.200 % 0.0-0.9 [facility] Work Phone: Comment on above: IG% - Immature Granu locytes (promyelocytes, myelocytes and metamyelocytes) > 1% indicates that a LEFT SHIFT is Present. MCH (RBC) [Entitic mass] 29.3 pg 27.0-32.0 [facility] Work Phone: Nucleated RBC/100 WBC (Bld) [Ratio] 0 % 0-5 [facility] Work Phone: MCHC Auto (RBC) [Mass/Vol]on 08-24-2021 MCHC (RBC) [Mass/Vol] 33.6 g/dL 32-36 [facility] Work Phone: No Panel Informationon 08-24 Estimated Creatinine Clearance Calc 181.78 ml/min [facility] Work Phone: Estimated GFR (MDRD) Amer 218 mL/min >60 [facility] Work Phone: Comment on above: GFR Calc Estimated GFR (MDRD) Non-Af Amer 180 mL/min >60 [facility] Work Phone: Comment on above: Non- GFR Calc Ethyl Alcohol Level < 3.0 mg/dL [facility] Work Phone: Comment on above: The serum:whole bloo d ethanol ratio is approximately 1.14and varies slightly with hematocrit. Medical Alcohol reference interval and critical value innon-tolerant individuals; 50 - 100 Impairment 100 Intoxication 100 - 250 Severe Poisoning 250 - 400 Deep/possible fatal coma Thyroid Stimulating Hormone (TSH) < 0.01 uIU/mL 0.358-3.74 [facility] Work Phone: Valproic Acid (Depakene) Level < 3 ug/mL 50-100 [facility] Work Phone: MDMA (Ecstasy) Screen Negative < 500 ng/mL [facility] Work Phone: Urine Barbiturates Screen Negative < 200 ng/mL [facility] Work Phone: Urine Drug Screen Comment [facility] Work Phone: Comment on above: CONFIRMATORY TESTING FOR ALL POSITIVE URINE DRUG SCREENRESULTS WILL ONLY BE SENT OUT UPON PHYSICIAN ORDER. VISTA Urine Drug Screen methods provide only preliminaryanalytical test results. A more specific alternate chemicalmethod must be used in order to obtain a confirmedanalytical result. Gas chromatography/mass spectrometery(GC/MS) is the preferred confirmatory method. Clinicalconsideration and professional judgement should be appliedto any drug of abuse test result, particularly whenpreliminary positive results are used. URINE TCA TESTING MUST BE ORDERED SEPARATELY. USE TESTMNEMONIC: [facility] Urine Methadone Screen Negative < 300 ng/mL [facility] Work Phone: Platelets bldon 08-24-2021 Platelets (Bld) [#/Vol] 236 10*3/uL 150-450 [facility] Work Phone: Serum or plasma albumin fady urement (mass/volume)on 08-24-2021 Albumin [Mass/Vol] 3.5 g/dL 3.2-5.0 [facility] Work Phone: Serum or plasma albumin/glob ulin mass ratioon 08-24-2021 Albumin/Globulin [Mass ratio] 1.2 {ratio} 0.9-2.4 [facility] Work Phone: Serum or plasma calcium fady urement (mass/volume)on 08-24-2021 Calcium [Mass/Vol] 8.4 mg/dL 8.5-10.1 [facility] Work Phone: Serum or plasma creatinine m easurement (mass/volume)on 08-24-2021 Creatinine [Mass/Vol] 0.59 mg/dL 0.70-1.30 [facility] Work Phone: Comment on above: The validity of the calculated GFR & GFRAA in patients over 70 years has not been determined. Clinical correlation is essential. Serum or plasma urea nitroge n measurement (mass/volume)on 08-24-2021 Urea nitrogen [Mass/Vol] 14 mg/dL 7-18 [facility] Work Phone: Thin prep Papanicolaou smear with manual screeningon 08-24-2021 Thin prep Papanicolaou smear with manual screening 14 U/L 15-37 [facility] Work Phone: Thin prep Papanicolaou smear with manual screening 5 5-15 [facility] Work Phone: Urine phencyclidine (PCP) de tectionon 08-24-2021 Phencyclidine Ql (U) Negative < 25 ng/mL [facility] Work Phone: COVID-19on 06-28-2021 SARS-CoV-2 (COVID-19) RNA FREDERICK+probe Ql (Unsp spec) Not detected Normal Not Detected [facility] Comment on above: Result Comment: Annie wyatt NAAT: Negative results should be treated as presumptive and, if inconsistent with clinical signs and symptoms or necessary for patient management, should be tested with an alternative molecular assay. Negative results do not preclude SARS-CoV-2 infection and should not be used as the sole basis for patient management decisions. This test has been authorized by the FDA under an Emergency Use Authorization (EUA) for use by authorized laboratories. Fact sheet for Healthcare Providers: https://www.fda.gov/media/487394/download Fact sheet for Patients: https://www.fda.gov/media/404211/download METHODOLOGY: Isothermal Nucleic Acid Amplification COVID-19on 06-27-2021 SARS-CoV-2 (COVID-19) RNA FREDERICK+probe Ql (Unsp spec) Not detected Normal Not Detected [facility] Comment on above: Result Comment: Rapi d NAAT: Negative results should be treated as presumptive and, if inconsistent with clinical signs and symptoms or necessary for patient management, should be tested with an alternative molecular assay. Negative results do not preclude SARS-CoV-2 infection and should not be used as the sole basis for patient management decisions. This test has been authorized by the FDA under an Emergency Use Authorization (EUA) for use by authorized laboratories. Fact sheet for Healthcare Providers: https://www.fda.gov/media/058850/download Fact sheet for Patients: https://www.fda.gov/media/161701/download METHODOLOGY: Isothermal Nucleic Acid Amplification Valproic Acid /Depakene Ranjithe talat 06-25-2021 Valproic Acid 20 mcg/mL Low 50-100 [facility] Comment on above: Order Comment: Scooby hand has been rescheduled by MIKIE at 06/24/2021 15:26 Reason: Using restroom COVID-19, PCRon 06-23-2021 SARS-CoV-2 (COVID-19) RNA FREDERICK+probe Ql (Unsp spec) Detected Abnormal Not Detected [facility] Comment on above: Order Comment: COVID -19, PCR was cancelled on 06/22/2021 at 17:10 by WILMAR; Cancelled: In-house testing Result Comment: This test has been authorized by FDA under an Emergency Use Authorization (EUA). This test is only authorized for the duration of the time of declaration that circumstances exist justifying the authorization of the emergency use of in vitro diagnostic testing for detection of the SARS-CoV-2 virus and/or diagnosis of COVID-19 infection under section 564 (b)(1) of the Act, 21 U.S.C. 360nnn-3 (b) (1), unless the authorization is terminated or revoked sooner. Patient Fact Sheet:https://www.fda.gov/media/290180/download Provider Fact Sheet:https://www.fda.gov/media/967826/download METHODOLOGY: RT PCR Respiratory Panel Molecular with Covidon 06-21-2021 Adenovirus by PCR Not detected Normal Not Detected [facility] Bordetella parapertussis by PCR Not detected Normal Not Detected [facility] Bordetella pertussis by PCR Not detected Normal Not Detected [facility] Chlamydophilia pneumoniae by PCR Not detected Normal Not Detected [facility] Coronavirus 229E by PCR Not detected Normal Not Detected [facility] Coronavirus HKU1 by PCR Not detected Normal Not Detected [facility] Coronavirus NL63 by PCR Not detected Normal Not Detected [facility] Coronavirus OC43 by PCR Not detected Normal Not Detected [facility] Human Metapneumovirus by PCR Not detected Normal Not Detected [facility] Human Rhinovirus/Enteroviru s by PCR Not detected Normal Not Detected [facility] Influenza A by PCR Not detected Normal Not Detected [facility] Influenza B by PCR Not detected Normal Not Detected [facility] Mycoplasma pneumoniae by PCR Not detected Normal Not Detected [facility] Parainfluenza Virus 1 by PCR Not detected Normal Not Detected [facility] Parainfluenza Virus 2 by PCR Not detected Normal Not Detected [facility] Parainfluenza Virus 3 by PCR Not detected Normal Not Detected [facility] Parainfluenza Virus 4 by PCR Not detected Normal Not Detected [facility] Respiratory Syncytial Virus by PCR Not detected Normal Not Detected [facility] SARS-CoV-2 (COVID-19) RNA FREDERICK+probe Ql (Unsp spec) Not detected Normal Not Detected [facility] Urinalysis, reflex to micros copicon 06-21-2021 Bilirubin Ql (U) Negative Normal Negative [facility] Clarity (U) Clear Normal Clear [facility] Color (U) Yellow Normal Straw/Yellow [facility] Glucose Ql (U) Negative Normal Negative [facility] Hemoglobin Ql (U) Negative Normal Negative [facility] Ketones Ql (U) Negative Normal Negative [facility] Leukocyte esterase Test strip Ql (U) Negative Normal Negative [facility] Nitrite Ql (U) Negative Normal Negative [facility] pH (U) 5.5 [pH] Normal 5.0-9.0 [facility] Protein Ql (U) Negative Normal Negative [facility] Specific gravity (U) [Rel density] 1.020 Normal 1.005-1.030 [facility] Urobilinogen Qn (U) 0.2 {Roya'U}/dL Normal < 2.0 [facility] Basic Metabolic Panel Reflex Mgon 06-20-2021 Anion gap [Moles/Vol] 8 mmol/L Normal 7-16 [facility] Calcium [Mass/Vol] 9.4 mg/dL Normal 8.6-10.2 [facility] Chloride [Moles/Vol] 103 mmol/L Normal 98-107 [facility] CO2 [Moles/Vol] 28 mmol/L Normal 22-29 [facility] Creatinine [Mass/Vol] 0.6 mg/dL Low 0.7-1.2 [facility] GFR Calculated >60 Normal >=60 [facility] Comment on above: Result Comment: Mineralogy Professor thomas Kidney Disease: less than 60 ml/min/1.73 sq.m. Kidney Failure: less than 15 ml/min/1.73 sq.m. Results valid for patients 18 years and older. GFR/1.73 sq M.predicted among blacks MDRD (S/P/Bld) [Vol rate/Area] mL/min/{1.73_m2} Normal [facility] Glucose [Mass/Vol] 90 mg/dL Normal 74-99 [facility] Magnesium [Moles/Vol] 4.6 mmol/L Normal 3.5-5.0 [facility] Sodium [Moles/Vol] 139 mmol/L Normal 132-146 [facility] Urea nitrogen [Mass/Vol] 19 mg/dL Normal 6-20 [facility] CBC With Platelet and Differ entialon 06-20-2021 Abs Imm Granulocytes 0.02 E9/L Normal [facility] Absolute Basophils 0.05 E9/L Normal 0.00-0.20 [facility] Absolute Eosinophils 0.08 E9/L Normal 0.05-0.50 [facility] Absolute Lymphocytes 3.74 E9/L Normal 1.50-4.00 [facility] Absolute Monocytes 0.84 E9/L Normal 0.10-0.95 [facility] Absolute Neutrophils 3.99 E9/L Normal 1.80-7.30 [facility] Basophils/100 WBC (Bld) 0.6 % Normal 0.0-2.0 [facility] Eosinophils/100 WBC (Bld) 0.9 % Normal 0.0-6.0 [facility] Hematocrit (Bld) [Volume fraction] 40.1 % Normal 37.0-54.0 [facility] Hemoglobin (Bld) [Mass/Vol] 13.4 g/dL Normal 12.5-16.5 [facility] Imm Granulocytes 0.2 % Normal 0.0-5.0 [facility] Lymphocytes/100 WBC (Bld) 42.9 % High 20.0-42.0 [facility] MCH (RBC) [Entitic mass] 28.6 pg Normal 26.0-35.0 [facility] MCHC 33.4 % Normal 32.0-34.5 [facility] MCV (RBC) [Entitic vol] 85.7 fL Normal 80.0-99.9 [facility] Monocytes/100 WBC (Bld) 9.6 % Normal 2.0-12.0 [facility] Neutrophils/100 WBC (Bld) 45.8 % Normal 43.0-80.0 [facility] Platelet Count 321 E9/L Normal 130-450 [facility] Platelet mean volume (Bld) [Entitic vol] 8.8 fL Normal 7.0-12.0 [facility] RBC 4.68 E12/L Normal 3.80-5.80 [facility] RDW 13.1 fL Normal 11.5-15.0 [facility] WBC 8.7 E9/L Normal 4.5-11.5 [facility] Liver Panelon 03-07-2022 Albumin [Mass/Vol] 4.1 g/dL Normal 3.5-5.2 [facility] ALP [Catalytic activity/Vol] 172 U/L High 40-129 [facility] ALT [Catalytic activity/Vol] 33 U/L Normal 0-40 [facility] AST [Catalytic activity/Vol] 20 U/L Normal 0-39 [facility] Bilirubin [Mass/Vol] 0.2 mg/dL Normal 0.0-1.2 [facility] Bilirubin Indirect see below Normal 0.0-1.0 [facility] Comment on above: Result Comment: Maria Isabel rect Bilirubin cannot be calculated since Total Bilirubin and/or Direct Bilirubin is below measurable range. Bilirubin.indirect [Mass/Vol] mg/dL Normal 0.0-0.3 [facility] Protein [Mass/Vol] 7.2 g/dL Normal 6.4-8.3 [facility] SARS-CoV-2 and Influenza A/B on 06-20-2021 Influenza A, RT-PCR Not detected Normal NOT DETECTED [facility] Comment on above: Result Comment: Note : Influenza A and Influenza B negative results should be considered presumptive in samples that have a Detected SARS-CoV-2 result. Consider re-testing with an alternate FDA-approved test for Flu A AND B if clinically indicated. Influenza B, RT-PCR Not detected Normal NOT DETECTED [facility] Comment on above: Result Comment: Note : Influenza A and Influenza B negative results should be considered presumptive in samples that have a Detected SARS-CoV-2 result. Consider re-testing with an alternate FDA-approved test for Flu A AND B if clinically indicated. SARS-CoV-2 (COVID-19) RNA FREDERICK+probe Ql (Unsp spec) Detected Abnormal NOT DETECTED [facility] Comment on above: Result Comment: Dete cted results are indicative of the presence of SARS-CoV-2, clinical correlation with patient history and other diagnostic information is necessary to determine patient infection status. A Detected results do not rule out bacterial infection or co-infection with other pathogens. Testing was performed using [employer] VIN SARS-CoV-2 and Influenza A/B nucleic acid assay. This test is a multiplex Real-Time Reverse Transcriptase Polymerase Chain Reaction (RT-PCR)-based in vitro diagnostic test intended for the qualitative detection of nucleic acids from SARS-CoV-2, influenza A, and influenza B in nasopharyngeal and nasal swab specimens for use under the FDA?s Emergency Use Authorization (EUA) only. Patient Fact Sheet: https://www.fda.gov/media/231284/download Provider Fact Sheet: https://www.fda.gov/media/219288/download EUA: https://www.fda.gov/media/407978/download IFU: https://www.fda.gov/media/451270/download Methodology: RT-PCR Serum Drug Screenon 06-21-19 Acetaminophen [Mass/Vol] ug/mL Low 10.0-30.0 [facility] Ethanol [Mass/Vol] mg/dL Normal [facility] Comment on above: Result Comment: Not Detected Salicylate <0.3 Normal 0.0-30.0 [facility] TCA Screen Negative Normal Cutoff:300 [facility] UR Drugs of Abuse Panelon UR Amphetamines Screen Not detected Normal Negative <1000 ng/mL [facility] UR Barbiturates Screen Not detected Normal Negative < 200 ng/mL [facility] UR Benzo Screen Not detected Normal Negative < 200 ng/mL [facility] UR Cannabinoids Screen Not detected Normal Negative < 50ng/mL [facility] UR Cocaine Screen Not detected Normal Negative < 300 ng/mL [facility] UR Fentanyl Screen Not detected Normal Negative <1 ng/mL [facility] UR Methadone Screen Not detected Normal Negative <300 ng/mL [facility] UR Opiates Screen Not detected Normal Negative < 300ng/mL [facility] Comment on above: Result Comment: Note : The Opiate Screen is not intended to detect Oxycodone. UR Oxycodone Screen Not detected Normal Negative <100 ng/mL [facility] UR PCP Screen Not detected Normal Negative < 25 ng/mL [facility] Drug Screen Comment see below Normal [facility] Comment on above: Result Comment: Thes e drug screen results are for medical purposes only and should not be considered definitive or confirmed. The drug methodology concentration value must be greater than or equal to the cutoff to be reported as positive. Confirmatory testing orders and/or interpretive screening questions can be directed to toxicology at [phone]. The absence of expected drug(s) and/or metabolite(s) may be due to inappropriate timing of specimen collection relative to drug administration, poor drug absorption, diluted/adulterated urine, or limitations of screening testing methodology. BLOOD CULTURE AEROBICon BLOOD CULTURE AEROBIC BLOOD CULTURE AERO BIC NO BACTERIAL GROWTH BLOOD CULTURE ANAEROBIC NO BACTERIAL GROWTH Normal [facility] Comment on above: Performed By: #### B CAER #### [facility] Laboratory [address] [place] [address] KNEE RIGHT (3 V)on 2 CRKNEER Name: ABA CARLTON Phys: ITALIA LEBRON PA-C : 2000 Age: 21 Sex: M Acct: [id number] Loc: ED Exam Date: 06/15/2021 Status: REG ER Radiology No: [id number] Unit No: [id number] EXAM# TYPE/EXAM RESULT [id number] EDRAD/KNEE RIGHT (3 V) SEE REPORT INDICATION: Knee injury post fall three days. Poor historian. TECHNIQUE: Three views of the right knee. COMPARISON: 06/13/2021 XR Right knee. FINDINGS: There is no displaced fracture. The alignment is anatomic. The does appear to be a suprapatellar effusion.. No additional soft tissue abnormalities are seen.. IMPRESSION: No acute bony abnormalities. There does appear to be a suprapatellar joint effusion.. Signed by Jay Lima MD REPORT SIGNED IN OTHER VENDOR SYSTEM 06/15/2021 Reported By: JAY LIMA M.D. CC: Technologist: ИРИНА MAR Transcribed Date/Time: 06/15/2021 (9882) Demand Generator Manager: QUINN Printed Date/Time: 06/15/2021 (6750) PAGE 1 Signed Report Normal [facility] ALBUMIN ([facility])on 06-15-19 22 Albumin [Mass/Vol] 3.9 g/dL Abnormal 4.1-5.2 [facility] Comment on above: Result Comment: Perf ormed at: - [facility] [address] [id number] Publication Designer: Ghulam June PhD, Phone: [phone] Performed By: #### E LUIS A, TSH, CBCD, CMP #### [facility] [address] [place] [address] C-REACTIVE PROTEINon 022 C-REACTIVE PROTEIN 0.90 MG/DL High 0-0.3 [facility] Comment on above: Result Comment: This method is intended for the detection and evaluation of infection, tissue injury and inflammatory disease. This method is not intended for cardiovascular risk assessment. * Performed By: #### E LUIS A, TSH, CBCD, CMP #### [facility] [address] [place] [address] CBC with DIFFERENTIALon 05-18 Basophils (Bld) [#/Vol] 0.0 10*3/uL Normal 0.0-0.1 [facility] Comment on above: Performed By: #### B CAER #### [facility] [address] [place] [address] Basophils/100 WBC (Bld) 0.3 % Normal 0.0-1.0 [facility] Comment on above: Performed By: #### B CAER #### [facility] [address] [place] [address] Eosinophils (Bld) [#/Vol] 0.1 10*3/uL Normal 0.0-0.4 [facility] Comment on above: Performed By: #### B CAER #### [facility] [address] [place] [address] Eosinophils/100 WBC (Bld) 0.7 % Low 1.0-4.0 [facility] Comment on above: Performed By: #### B CAER #### [facility] [address] [place] [address] Hematocrit (Bld) [Volume fraction] 37.8 % Low 42.0-52.0 [facility] Comment on above: Performed By: #### B CAER #### [facility] [address] [place] [address] Hemoglobin (Bld) [Mass/Vol] 12.9 g/dL Low 14.0-18.0 [facility] Comment on above: Performed By: #### B CAER #### [facility] [address] [place] [address] IG # 0.1 10*3/uL Normal 0.0-0.1 [facility] Comment on above: Performed By: #### B CAER #### [facility] [address] [place] [address] IG % 0.4 % Normal 0.0-1.0 [facility] Comment on above: Performed By: #### B CAER #### [facility] [address] [place] [address] Lymphocytes (Bld) [#/Vol] 3.2 10*3/uL Normal 1.3-4.4 [facility] Comment on above: Performed By: #### B CAER #### [facility] [address] [place] [address] Lymphocytes/100 WBC (Bld) 26.5 % Low 27.0-41.0 [facility] Comment on above: Performed By: #### B CAER #### [facility] [address] [place] [address] MCV (RBC) [Entitic vol] 85.3 fL Normal 80.0-94.0 [facility] Comment on above: Performed By: #### B CAER #### [facility] [address] [place] [address] MEAN CORPUSCULAR HGB 29.1 pg Normal 27.0-31.0 [facility] Comment on above: Performed By: #### B CAER #### [facility] [address] [place] [address] MEAN CORPUSCULAR HGB CONC 34.1 g/dl Normal 33.0-37.0 [facility] Comment on above: Performed By: #### B CAER #### [facility] [address] [place] [address] Monocytes (Bld) [#/Vol] 1.1 10*3/uL High 0.1-1.0 [facility] Comment on above: Performed By: #### B CAER #### [facility] [address] [place] [address] Monocytes/100 WBC (Bld) 8.7 % Normal 3.0-9.0 [facility] Comment on above: Performed By: #### B CAER #### [facility] [address] [place] [address] Neutrophils (Bld) [#/Vol] 7.7 10*3/uL Normal 2.3-7.9 [facility] Comment on above: Performed By: #### B CAER #### [facility] [address] [place] [address] Neutrophils/100 WBC (Bld) 63.4 % Normal 47.0-73.0 [facility] Comment on above: Performed By: #### B CAER #### [facility] [address] [place] [address] NUCLEATED RED BLOOD CELL 0.0 10*3/uL Normal 0.0-0.0 [facility] Comment on above: Performed By: #### B CAER #### [facility] [address] [place] [address] NUCLEATED RED BLOOD CELL 0.0 % Normal 0.0-0.0 [facility] Comment on above: Performed By: #### B CAER #### [facility] [address] [place] [address] PLATELET COUNT AUTOMATED 235 10*3/uL Normal 130-400 [facility] Comment on above: Performed By: #### B CAER #### [facility] [address] [place] [address] Platelet mean volume (Bld) [Entitic vol] 8.8 fL Low 9.6-12.3 [facility] Comment on above: Performed By: #### B CAER #### [facility] [address] [place] [address] RBC (Bld) [#/Vol] 4.43 10*6/uL Low 4.50-5.90 [facility] Comment on above: Performed By: #### B CAER #### [facility] [address] [place] [address] RED CELL DISTRI WIDTH 13.7 % Normal 0-14.5 [facility] Comment on above: Performed By: #### B CAER #### [facility] [address] [place] [address] WBC (Bld) [#/Vol] 12.1 10*3/uL High 4.8-10.8 [facility] Comment on above: Performed By: #### B CAER #### [facility] [address] [place] [address] COMPREHENSIVE METABOLIC PANE Talat 06-13-2021 ALBUMIN. ND Normal [facility] Comment on above: Result Comment: See send out ALBUMIN from [facility]. Performed By: #### B CAER #### [facility] [address] [place] [address] ALP [Catalytic activity/Vol] 163 U/L High 45-117 [facility] Comment on above: Performed By: #### B CAER #### [facility] [address] [place] [address] ALT [Catalytic activity/Vol] 45 U/L Normal 12-78 [facility] Comment on above: Performed By: #### B CAER #### [facility] [address] [place] [address]60 AST [Catalytic activity/Vol] 15 U/L Normal 3-35 [facility] Comment on above: Performed By: #### B CAER #### [facility] [address] [place] [address] Bilirubin [Mass/Vol] 0.5 mg/dL Normal 0.2-1.0 [facility] Comment on above: Performed By: #### B CAER #### [facility] [address] [place] [address] Calcium [Mass/Vol] 8.6 mg/dL Normal 8.5-10.5 [facility] Comment on above: Performed By: #### B CAER #### [facility] [address] [place] [address] Chloride [Moles/Vol] 110 mmol/L High 98-107 [facility] Comment on above: Performed By: #### B CAER #### [facility] [address] [place] [address] CO2 [Moles/Vol] 24 mmol/L Normal 21-32 [facility] Comment on above: Performed By: #### B CAER #### [facility] [address] [place] [address] Creatinine [Mass/Vol] 0.47 mg/dL Low 0.70-1.30 [facility] Comment on above: Performed By: #### B CAER #### [facility] [address] [place] [address] EST GLOM FILT > 60 Normal [facility] Comment on above: Result Comment: Result Units: mL/min/1.73 m2 Note: Persistent reduction for 3 months or more of an eGFR of <60 ml/min/1.73 m2 defines Chronic Kidney Disease (CKD). Patients with eGFR values greater than or equal to 60 ml/min/1.73 m2 may also have CKD if evidence of persistent proteinuria is present. STAGES OF CKD eGFR Stage 1 Kidney damage with normal kidney function >=90 Stage 2 Kidney damage with mild loss of kidney function 89-60 Stage 3a Mild to moderate loss of kidney function 59-44 Stage 3b Moderate to severe loss of kidney function 43-30 Stage 4 Severe loss of kidney function 29-15 Stage 5 Kidney failure < 15 . Performed By: #### B CAER #### [facility] [address] [place] [address] ESTIMATED GLOM FILT RATE > 60 Normal [facility] Comment on above: Performed By: #### B CAER #### [facility] [address] [place] [address] Glucose [Mass/Vol] 112 mg/dL High 65-99 [facility] Comment on above: Performed By: #### B CAER #### [facility] [address] [place] [address] Potassium [Moles/Vol] 3.7 mmol/L Normal 3.5-5.1 [facility] Comment on above: Performed By: #### B CAER #### [facility] [address] [place] [address] Protein [Mass/Vol] 6.6 g/dL Normal 6.4-8.2 [facility] Comment on above: Performed By: #### B CAER #### [facility] [address] [place] [address] Sodium [Moles/Vol] 138 mmol/L Normal 136-145 [facility] Comment on above: Performed By: #### B CAER #### [facility] [address] [place] [address] Urea nitrogen [Mass/Vol] 13 mg/dL Normal 7-24 [facility] Comment on above: Performed By: #### B CAER #### [facility] [address] [place] [address] CPKon 06-13-2021 CPK 219 U/L Normal 39-308 [facility] Comment on above: Performed By: #### B CAER #### [facility] [address] [place] [address] ELECTROCARDIOGRAM REPORTon 0 06-13-2021 [employer] Director Report [place], [place] ELECTROCARDIOGRAM REPORT NAME: ABA CARLTON UNIT #: [id number] ROOM: DOCTOR: QUINCY LOBO MD BIRTHDATE: [birth year] [facility] Test Date: 2021-06-13 Test Time: 09:14:30 Pat Name: ABA CARLTON Department: Room: Gender: M Shank Pinner: : 2000 Requested By: QUINCY LOBO Order Number: [id number] Reading MD: Quincy Lobo MD Measurements Intervals [place] Rate: 108 P: 22 MS: 185 QRS: 52 QRSD: 95 T: 41 QT: 324 QTc: 435 Interpretive Statements Sinus tachycardia RSR' in V1 or V2, probably normal variant ST elevation suggests acute pericarditis Compared to ECG 06/02/2021 03:17:06 RSR' in V1 or V2 now present ST (T wave) deviation still present Electronically Signed On 06-13-2021 7:55:11 PST by Quincy Loob MD CM:EKGRPT:ELECTROCARDIOG MELONIE REPORT [id number] QUINCY LOBO MD Normal [facility] ESR (Sed Rate)on 06-13-2021 ESR (Bld) [Velocity] 7 mm/h Normal 0-15 [facility] Comment on above: Performed By: #### E LUIS A, TSH, CBCD, CMP #### [facility] [address] [place] [address] ETHYL ALCOHOLon 06-13-2021 ETHYL ALCOHOL < 3.0 Normal <3 [facility] Comment on above: Performed By: #### E LUIS A, TSH, CBCD, CMP #### [facility] [address] [place] [address] HS TROPONIN Ion 06-13-2021 HS TROPONIN I 6 ng/L Normal 4-79 [facility] Comment on above: Result Comment: Inte rpretation comment: High-sensitivity troponin I (hsTnI) assay can reliably detect low troponin concentrations relative to conventional troponin assays. It is the preferred marker of myocardial necrosis as recommended by the Fourth Universial Definition of Myocardial Infarction Guidelines. The diagnosis of acute myocardial infarction (AMI) is made based on a rise or fall of troponin with at least one measurement exceeding the laboratory's upper limit of normal (indicatiing myocardial injury), in the context of reasonable suspicion for coronary ischemia (e.g. typical symptoms, changes on ECG, evidence for loss of myocardial infarction or demonstration of obstructive coronary artery disease). Note: Although abnormal hsTnI values reflect injury to myocardial cells, an elevated hsTnI does not indicate the cause of injury (i.e. ischemia versus non-ischemic disease). In some cases, myocardial injury is chronic and relatively stable such that hsTnI values remain elevated but do not change substantially over hours to days (examples include chronic kidney disease, heart failure or advanced patient age). When determining whether there has been a significant rise or fall of troponin on serial sampling, absolute change in troponin concentration has greater diagnostic accuracy for AMI than relative change criteria. A change of >7 ng/L over a 2-hour interval is suggested as a significant change. If the initial hsTnI is below the 99th percentile upper reference limit, a 50% change from the baseline is considered significant. If the initial hsTnI is above the 99th percentile upper reference limit, a 20% change from the baseline value is considered significant. Performed By: #### B SYEDA #### [facility] [address] [place] [address] HS TROPONIN I 5 ng/L Normal 4-79 [facility] Comment on above: Result Comment: Inte rpretation comment: High-sensitivity troponin I (hsTnI) assay can reliably detect low troponin concentrations relative to conventional troponin assays. It is the preferred marker of myocardial necrosis as recommended by the Fourth Universial Definition of Myocardial Infarction Guidelines. The diagnosis of acute myocardial infarction (AMI) is made based on a rise or fall of troponin with at least one measurement exceeding the laboratory's upper limit of normal (indicatiing myocardial injury), in the context of reasonable suspicion for coronary ischemia (e.g. typical symptoms, changes on ECG, evidence for loss of myocardial infarction or demonstration of obstructive coronary artery disease). Note: Although abnormal hsTnI values reflect injury to myocardial cells, an elevated hsTnI does not indicate the cause of injury (i.e. ischemia versus non-ischemic disease). In some cases, myocardial injury is chronic and relatively stable such that hsTnI values remain elevated but do not change substantially over hours to days (examples include chronic kidney disease, heart failure or advanced patient age). When determining whether there has been a significant rise or fall of troponin on serial sampling, absolute change in troponin concentration has greater diagnostic accuracy for AMI than relative change criteria. A change of >7 ng/L over a 2-hour interval is suggested as a significant change. If the initial hsTnI is below the 99th percentile upper reference limit, a 50% change from the baseline is considered significant. If the initial hsTnI is above the 99th percentile upper reference limit, a 20% change from the baseline value is considered significant. Performed By: #### E LUIS A, TSH, CBCD, CMP #### [facility] [address] [place] [address] KNEE RIGHT (MIN 4 V)on 06-13 [id number] Name: ABA CARLTON Phys: YAMIL MERINO,QUINCY : 2000 Age: 21 Sex: M Acct: [id number] Loc: ED Exam Date: 06/13/2021 Status: REG ER Radiology No: [id number] Unit No: [id number] EXAM# TYPE/EXAM RESULT [id number] EDRAD/KNEE RIGHT (MIN 4 V) SEE REPORT INDICATION: Right knee pain post injury one day ago. TECHNIQUE: Four view(s) of the right knee. COMPARISON: None available. FINDINGS: Adequate bony mineralization. No fracture or dislocation. Moderate swelling of the soft tissues around the knee. Moderate to large joint effusion. IMPRESSION: Mild to moderate soft tissue swelling and moderate to large-sized joint effusion. No fracture or dislocation. Signed by Ian Saba REPORT SIGNED IN OTHER VENDOR SYSTEM 06/13/2021 Reported By: IAN SABA M.D. CC: Technologist: KAREL PANTOJA Transcribed Date/Time: 06/13/2021 (1989) Demand Generator Manager: QUINN Printed Date/Time: 06/13/2021 (0631) PAGE 1 Signed Report Normal [facility] LACTIC ACID BASELINEon 06-13 LACTIC ACID BASELINE 0.9 mmol/L Normal 0.4-2.0 [facility] Comment on above: Performed By: #### E LUIS A, TSH, CBCD, CMP #### [facility] [address] [place] [address] URINALYSIS REFLEX TO CULTURE on 06-13-2021 BACTERIA TRACE Normal [facility] Comment on above: Performed By: #### E LUIS A, TSH, CBCD, CMP #### [facility] [address] [place] [address] Bilirubin Ql (U) Negative Normal Negative [facility] Comment on above: Performed By: #### E LUIS A, TSH, CBCD, CMP #### [facility] [address] [place] [address]970 Clarity (U) Clear Normal Clear [facility] Comment on above: Performed By: #### E LUIS A, TSH, CBCD, CMP #### [facility] [address] [place] [address] 31662 Color (U) Yellow Normal Yellow [facility] Comment on above: Performed By: #### E LUIS A, TSH, CBCD, CMP #### [facility] [address] [place] [address] 19031 Epithelial cells LM Ql (Urine sed) 0-2 Normal [facility] Comment on above: Performed By: #### E LUIS A, TSH, CBCD, CMP #### [facility] [address] [place] [address] 21033 Glucose Ql (U) Negative Normal Negative [facility] Comment on above: Performed By: #### E LUIS A, TSH, CBCD, CMP #### [facility] [address] [place] [address] 30293 Hemoglobin Ql (U) Negative Normal Negative [facility] Comment on above: Performed By: #### E LUIS A, TSH, CBCD, CMP #### [facility] [address] [place] [address] 612[address] KETONE Negative Normal Negative [facility] Comment on above: Performed By: #### E LUIS A, TSH, CBCD, CMP #### [facility] [address] [place] [address] LEUKO ESTERASE Negative Normal Negative [facility] Comment on above: Performed By: #### E LUIS A, TSH, CBCD, CMP #### [facility] [address] [place] [address] 72329 Nitrite Ql (U) Negative Normal Negative [facility] Comment on above: Performed By: #### E LUIS A, TSH, CBCD, CMP #### [facility] [address] [place] [address] 939[address] pH (U) 7.5 [pH] Normal 4.5-8.0 [facility] Comment on above: Performed By: #### E LUIS A, TSH, CBCD, CMP #### [facility] [address] [place] [address] 63766 Protein Ql (U) Negative Normal Negative [facility] Comment on above: Performed By: #### E LUIS A, TSH, CBCD, CMP #### [facility] [address] [place] [address] 92537 RBC 2-4 Normal 0-2 [facility] Comment on above: Performed By: #### E LUIS A, TSH, CBCD, CMP #### [facility] [address] [place] [address] 73881 Specific gravity (U) [Rel density] 1.020 Normal 1.001-1.030 [facility] Comment on above: Performed By: #### E LUIS A, TSH, CBCD, CMP #### [facility] [address] [place] [address]682 URINE REFLEX COMMENT NO Normal NO [facility] Comment on above: Performed By: #### E LUIS A, TSH, CBCD, CMP #### [facility] [address] [place] [address] 14032 UROBILINOGEN 0.2 E.U./dl Normal 0.0-1.0 [facility] Comment on above: Performed By: #### E LUIS A, TSH, CBCD, CMP #### [facility] [address] [place] [address] WBC 0-2 Normal 0-5 [facility] Comment on above: Performed By: #### E LUIS A, TSH, CBCD, CMP #### [facility] [address] [place] [address] URINE DRUG SCREENon 06-13-19 22 URINE AMPHETAMINES < 1000 Normal 1000ng/ml [facility] Comment on above: Order Comment: SOURC E: URINE,CLEAN CATCH Performed By: #### E LUIS A, TSH, CBCD, CMP #### [facility] [address] [place] [address] 9[address] URINE BARBITURATES < 200 Normal 200ng/ml [facility] Comment on above: Order Comment: SOURC E: URINE,CLEAN CATCH Performed By: #### E LUIS A, TSH, CBCD, CMP #### [facility] [address] [place] [address] 296[address] URINE BENZODIAZEPINES < 200 Normal 200ng/ml [facility] Comment on above: Order Comment: SOURC E: URINE,CLEAN CATCH Performed By: #### E LUIS A, TSH, CBCD, CMP #### [facility] [address] [place] [address] URINE CANNABINOIDS (THC) < 50 Normal 50ng/ml [facility] Comment on above: Order Comment: SOURC E: URINE,CLEAN CATCH Performed By: #### E LUIS A, TSH, CBCD, CMP #### [facility] [address] [place] [address] URINE COCAINE > 300 Abnormal 300ng/ml [facility] Comment on above: Order Comment: SOURC E: URINE,CLEAN CATCH Performed By: #### E LUIS A, TSH, CBCD, CMP #### [facility] [address] [place] [address] URINE METHADONE < 300 Normal 300ng/ml [facility] Comment on above: Order Comment: SOURC E: URINE,CLEAN CATCH Performed By: #### E LUIS A, TSH, CBCD, CMP #### [facility] [address] [place] [address] URINE OPIATES < 300 Normal 300ng/ml [facility] Comment on above: Order Comment: SOURC E: URINE,CLEAN CATCH Performed By: #### E LUIS A, TSH, CBCD, CMP #### [facility] [address] [place] [address] URINE PHENCYCLIDINE < 25 Normal 25ng/ml [facility] Comment on above: Order Comment: SOURC E: URINE,CLEAN CATCH Result Comment: pH o f the urine has been checked and is within acceptable range 5-8 The Drugs of Abuse are screening results only. Confirmation and Quantitation by GC/MS can be performed by request at an additional charge. ANYTHING EQUAL TO OR GREATER THAN THE REFERENCE INDICATES ABUSE. ( > = POSITIVE < = NEGATIVE ) Performed By: #### E LUIS A, TSH, CBCD, CMP #### [facility] [address] [place] [address] CBC with DIFFERENTIALon 05-17 Basophils (Bld) [#/Vol] 0.0 10*3/uL Normal 0.0-0.1 [facility] Comment on above: Performed By: #### T SH, CMP, CBCD, MG, T4 #### [facility] [address] [place] [address] Basophils/100 WBC (Bld) 0.2 % Normal 0.0-1.0 [facility] Comment on above: Performed By: #### T SH, CMP, CBCD, MG, T4 #### [facility] [address] [place] [address] 899[address] Eosinophils (Bld) [#/Vol] 0.1 10*3/uL Normal 0.0-0.4 [facility] Comment on above: Performed By: #### T SH, CMP, CBCD, MG, T4 #### [facility] [address] [place] [address] Eosinophils/100 WBC (Bld) 0.9 % Low 1.0-4.0 [facility] Comment on above: Performed By: #### T SH, CMP, CBCD, MG, T4 #### [facility] [address] [place] [address] 48[address] Hematocrit (Bld) [Volume fraction] 35.9 % Low 42.0-52.0 [facility] Comment on above: Performed By: #### T SH, CMP, CBCD, MG, T4 #### [facility] [address] [place] [address] 72544 Hemoglobin (Bld) [Mass/Vol] 12.2 g/dL Low 14.0-18.0 [facility] Comment on above: Performed By: #### T SH, CMP, CBCD, MG, T4 #### [facility] [address] [place] [address] 24691 IG # 0.0 10*3/uL Normal 0.0-0.1 [facility] Comment on above: Performed By: #### T SH, CMP, CBCD, MG, T4 #### [facility] [address] [place] [address] 85092 IG % 0.2 % Normal 0.0-1.0 [facility] Comment on above: Performed By: #### T SH, CMP, CBCD, MG, T4 #### [facility] [address] [place] [address] 85872 Lymphocytes (Bld) [#/Vol] 4.0 10*3/uL Normal 1.3-4.4 [facility] Comment on above: Performed By: #### T SH, CMP, CBCD, MG, T4 #### [facility] [address] [place] [address] 91707 Lymphocytes/100 WBC (Bld) 45.7 % High 27.0-41.0 [facility] Comment on above: Performed By: #### T SH, CMP, CBCD, MG, T4 #### [facility] [address] [place] [address] MCV (RBC) [Entitic vol] 85.1 fL Normal 80.0-94.0 [facility] Comment on above: Performed By: #### T SH, CMP, CBCD, MG, T4 #### [facility] [address] [place] [address] 70003 MEAN CORPUSCULAR HGB 28.9 pg Normal 27.0-31.0 [facility] Comment on above: Performed By: #### T SH, CMP, CBCD, MG, T4 #### [facility] [address] [place] [address] 65359 MEAN CORPUSCULAR HGB CONC 34.0 g/dl Normal 33.0-37.0 [facility] Comment on above: Performed By: #### T SH, CMP, CBCD, MG, T4 #### [facility] [address] [place] [address] 42765 Monocytes (Bld) [#/Vol] 0.9 10*3/uL Normal 0.1-1.0 [facility] Comment on above: Performed By: #### T SH, CMP, CBCD, MG, T4 #### [facility] [address] [place] [address] 02251 Monocytes/100 WBC (Bld) 10.4 % High 3.0-9.0 [facility] Comment on above: Performed By: #### T SH, CMP, CBCD, MG, T4 #### [facility] [address] [place] [address] 86983 Neutrophils (Bld) [#/Vol] 3.8 10*3/uL Normal 2.3-7.9 [facility] Comment on above: Performed By: #### T SH, CMP, CBCD, MG, T4 #### [facility] [address] [place] [address] 61805 Neutrophils/100 WBC (Bld) 42.6 % Low 47.0-73.0 [facility] Comment on above: Performed By: #### T SH, CMP, CBCD, MG, T4 #### [facility] [address] [place] [address] 02663 NUCLEATED RED BLOOD CELL 0.0 10*3/uL Normal 0.0-0.0 [facility] Comment on above: Performed By: #### T SH, CMP, CBCD, MG, T4 #### [facility] [address] [place] [address] 19060 NUCLEATED RED BLOOD CELL 0.0 % Normal 0.0-0.0 [facility] Comment on above: Performed By: #### T SH, CMP, CBCD, MG, T4 #### [facility] [address] [place] [address] 86259 PLATELET COUNT AUTOMATED 215 10*3/uL Normal 130-400 [facility] Comment on above: Performed By: #### T SH, CMP, CBCD, MG, T4 #### [facility] [address] [place] [address] 99380 Platelet mean volume (Bld) [Entitic vol] 9.2 fL Low 9.6-12.3 [facility] Comment on above: Performed By: #### T SH, CMP, CBCD, MG, T4 #### [facility] [address] [place] [address] 40343 RBC (Bld) [#/Vol] 4.22 10*6/uL Low 4.50-5.90 [facility] Comment on above: Performed By: #### T SH, CMP, CBCD, MG, T4 #### [facility] [address] [place] [address] 86705 RED CELL DISTRI WIDTH 12.7 % Normal 0-14.5 [facility] Comment on above: Performed By: #### T SH, CMP, CBCD, MG, T4 #### [facility] [address] [place] [address] 63548 WBC (Bld) [#/Vol] 8.8 10*3/uL Normal 4.8-10.8 [facility] Comment on above: Performed By: #### T SH, CMP, CBCD, MG, T4 #### [facility] [address] [place] [address] COMPREHENSIVE METABOLIC PANE Talat 06-02-2021 Albumin [Mass/Vol] 3.5 g/dL Normal 3.1-4.5 [facility] Comment on above: Performed By: #### T SH, CMP, CBCD, MG, T4 #### [facility] [address] [place] [address] ALP [Catalytic activity/Vol] 167 U/L High 45-117 [facility] Comment on above: Performed By: #### T SH, CMP, CBCD, MG, T4 #### [facility] [address] [place] [address] ALT [Catalytic activity/Vol] 40 U/L Normal 12-78 [facility] Comment on above: Performed By: #### T SH, CMP, CBCD, MG, T4 #### [facility] [address] [place] [address] 70111 AST [Catalytic activity/Vol] 12 U/L Normal 3-35 [facility] Comment on above: Performed By: #### T SH, CMP, CBCD, MG, T4 #### [facility] [address] [place] [address] Bilirubin [Mass/Vol] 0.2 mg/dL Normal 0.2-1.0 [facility] Comment on above: Performed By: #### T SH, CMP, CBCD, MG, T4 #### [facility] [address] [place] [address] Calcium [Mass/Vol] 8.5 mg/dL Normal 8.5-10.5 [facility] Comment on above: Performed By: #### T SH, CMP, CBCD, MG, T4 #### [facility] [address] [place] [address] Chloride [Moles/Vol] 108 mmol/L High 98-107 [facility] Comment on above: Performed By: #### T SH, CMP, CBCD, MG, T4 #### [facility] [address] [place] [address] CO2 [Moles/Vol] 27 mmol/L Normal 21-32 [facility] Comment on above: Performed By: #### T SH, CMP, CBCD, MG, T4 #### [facility] [address] [place] [address] Creatinine [Mass/Vol] 0.58 mg/dL Low 0.70-1.30 [facility] Comment on above: Performed By: #### T SH, CMP, CBCD, MG, T4 #### [facility] [address] [place] [address] EST GLOM FILT > 60 Normal [facility] Comment on above: Result Comment: Result Units: mL/min/1.73 m2 Note: Persistent reduction for 3 months or more of an eGFR of <60 ml/min/1.73 m2 defines Chronic Kidney Disease (CKD). Patients with eGFR values greater than or equal to 60 ml/min/1.73 m2 may also have CKD if evidence of persistent proteinuria is present. STAGES OF CKD eGFR Stage 1 Kidney damage with normal kidney function >=90 Stage 2 Kidney damage with mild loss of kidney function 89-60 Stage 3a Mild to moderate loss of kidney function 59-44 Stage 3b Moderate to severe loss of kidney function 43-30 Stage 4 Severe loss of kidney function 29-15 Stage 5 Kidney failure < 15 . Performed By: #### T SH, CMP, CBCD, MG, T4 #### [facility] [address] [place] [address] ESTIMATED GLOM FILT RATE > 60 Normal [facility] Comment on above: Performed By: #### T SH, CMP, CBCD, MG, T4 #### [facility] [address] [place] [address] Glucose [Mass/Vol] 143 mg/dL High 65-99 [facility] Comment on above: Performed By: #### T SH, CMP, CBCD, MG, T4 #### [facility] [address] [place] [address] Potassium [Moles/Vol] 3.8 mmol/L Normal 3.5-5.1 [facility] Comment on above: Performed By: #### T SH, CMP, CBCD, MG, T4 #### [facility] [address] [place] [address] 88872 Protein [Mass/Vol] 6.2 g/dL Low 6.4-8.2 [facility] Comment on above: Performed By: #### T SH, CMP, CBCD, MG, T4 #### [facility] [address] [place] [address] 25675 Sodium [Moles/Vol] 140 mmol/L Normal 136-145 [facility] Comment on above: Performed By: #### T SH, CMP, CBCD, MG, T4 #### [facility] [address] [place] [address] 47050 Urea nitrogen [Mass/Vol] 15 mg/dL Normal 7-24 [facility] Comment on above: Performed By: #### T SH, CMP, CBCD, MG, T4 #### [facility] [address] [place] [address] 26274 ELECTROCARDIOGRAM REPORTon 0 06-02-2021 [employer] Director Report [place], [place] ELECTROCARDIOGRAM REPORT NAME: SIMBA CARLTONSivan Valiente UNIT #: [id number] ROOM: [facility] DOCTOR: LICO PARADA MD BIRTHDATE: [birth year] [facility] Test Date: 2021-06-02 Test Time: 03:17:06 Pat Name: ABA CARLTON Department: Room: [facility] 1 Gender: M Shank Pinner: : 2000 Requested By: JEANETTE ARZOLA Order Number: [id number] Reading MD: Lico Parada Measurements Intervals [place] Rate: 117 P: MS: QRS: 62 QRSD: 93 T: 67 QT: 408 QTc: 570 Interpretive Statements Sinus tachycardia ST elevation - cConsider pericarditis Prolonged QTc interval No prior EKG to compare. Electronically Signed On 06-02-2021 9:43:41 PST by Lico Parada CM:EKGRPT:ELECTROCARDIOG MELONIE REPORT [phone] JEANETTE ARZOLA Normal [facility] [place] HS TROPONIN Ion 06-02-2021 HS TROPONIN I 5 ng/L Normal 4-79 [facility] [place] Comment on above: Result Comment: Inte rpretation comment: High-sensitivity troponin I (hsTnI) assay can reliably detect low troponin concentrations relative to conventional troponin assays. It is the preferred marker of myocardial necrosis as recommended by the [employer] Definition of Myocardial Infarction Guidelines. The diagnosis of acute myocardial infarction (AMI) is made based on a rise or fall of troponin with at least one measurement exceeding the laboratory's upper limit of normal (indicatiing myocardial injury), in the context of reasonable suspicion for coronary ischemia (e.g. typical symptoms, changes on ECG, evidence for loss of myocardial infarction or demonstration of obstructive coronary artery disease). Note: Although abnormal hsTnI values reflect injury to myocardial cells, an elevated hsTnI does not indicate the cause of injury (i.e. ischemia versus non-ischemic disease). In some cases, myocardial injury is chronic and relatively stable such that hsTnI values remain elevated but do not change substantially over hours to days (examples include chronic kidney disease, heart failure or advanced patient age). When determining whether there has been a significant rise or fall of troponin on serial sampling, absolute change in troponin concentration has greater diagnostic accuracy for AMI than relative change criteria. A change of >7 ng/L over a 2-hour interval is suggested as a significant change. If the initial hsTnI is below the 99th percentile upper reference limit, a 50% change from the baseline is considered significant. If the initial hsTnI is above the 99th percentile upper reference limit, a 20% change from the baseline value is considered significant. Performed By: #### B SYEDA #### [facility] [place] Laboratory [address] [id number] HS TROPONIN I 4 ng/L Normal 4-79 [facility] [place] Comment on above: Result Comment: Inte rpretation comment: High-sensitivity troponin I (hsTnI) assay can reliably detect low troponin concentrations relative to conventional troponin assays. It is the preferred marker of myocardial necrosis as recommended by the Fourth [employer] Definition of Myocardial Infarction Guidelines. The diagnosis of acute myocardial infarction (AMI) is made based on a rise or fall of troponin with at least one measurement exceeding the laboratory's upper limit of normal (indicatiing myocardial injury), in the context of reasonable suspicion for coronary ischemia (e.g. typical symptoms, changes on ECG, evidence for loss of myocardial infarction or demonstration of obstructive coronary artery disease). Note: Although abnormal hsTnI values reflect injury to myocardial cells, an elevated hsTnI does not indicate the cause of injury (i.e. ischemia versus non-ischemic disease). In some cases, myocardial injury is chronic and relatively stable such that hsTnI values remain elevated but do not change substantially over hours to days (examples include chronic kidney disease, heart failure or advanced patient age). When determining whether there has been a significant rise or fall of troponin on serial sampling, absolute change in troponin concentration has greater diagnostic accuracy for AMI than relative change criteria. A change of >7 ng/L over a 2-hour interval is suggested as a significant change. If the initial hsTnI is below the 99th percentile upper reference limit, a 50% change from the baseline is considered significant. If the initial hsTnI is above the 99th percentile upper reference limit, a 20% change from the baseline value is considered significant. Performed By: #### B CAER #### [facility] [place] Laboratory [address] [place] [address] HS TROPONIN I 5 ng/L Normal 4-79 [facility] [place] Comment on above: Result Comment: Inte rpretation comment: High-sensitivity troponin I (hsTnI) assay can reliably detect low troponin concentrations relative to conventional troponin assays. It is the preferred marker of myocardial necrosis as recommended by the Fourth [facility] Definition of Myocardial Infarction Guidelines. The diagnosis of acute myocardial infarction (AMI) is made based on a rise or fall of troponin with at least one measurement exceeding the laboratory's upper limit of normal (indicatiing myocardial injury), in the context of reasonable suspicion for coronary ischemia (e.g. typical symptoms, changes on ECG, evidence for loss of myocardial infarction or demonstration of obstructive coronary artery disease). Note: Although abnormal hsTnI values reflect injury to myocardial cells, an elevated hsTnI does not indicate the cause of injury (i.e. ischemia versus non-ischemic disease). In some cases, myocardial injury is chronic and relatively stable such that hsTnI values remain elevated but do not change substantially over hours to days (examples include chronic kidney disease, heart failure or advanced patient age). When determining whether there has been a significant rise or fall of troponin on serial sampling, absolute change in troponin concentration has greater diagnostic accuracy for AMI than relative change criteria. A change of >7 ng/L over a 2-hour interval is suggested as a significant change. If the initial hsTnI is below the 99th percentile upper reference limit, a 50% change from the baseline is considered significant. If the initial hsTnI is above the 99th percentile upper reference limit, a 20% change from the baseline value is considered significant. Performed By: #### B CAER #### [facility] [place] Laboratory [address] [place] [address] HS TROPONIN I 5 ng/L Normal 4-79 [facility] [place] Comment on above: Result Comment: Inte rpretation comment: High-sensitivity troponin I (hsTnI) assay can reliably detect low troponin concentrations relative to conventional troponin assays. It is the preferred marker of myocardial necrosis as recommended by the Fourth [employer] Definition of Myocardial Infarction Guidelines. The diagnosis of acute myocardial infarction (AMI) is made based on a rise or fall of troponin with at least one measurement exceeding the laboratory's upper limit of normal (indicatiing myocardial injury), in the context of reasonable suspicion for coronary ischemia (e.g. typical symptoms, changes on ECG, evidence for loss of myocardial infarction or demonstration of obstructive coronary artery disease). Note: Although abnormal hsTnI values reflect injury to myocardial cells, an elevated hsTnI does not indicate the cause of injury (i.e. ischemia versus non-ischemic disease). In some cases, myocardial injury is chronic and relatively stable such that hsTnI values remain elevated but do not change substantially over hours to days (examples include chronic kidney disease, heart failure or advanced patient age). When determining whether there has been a significant rise or fall of troponin on serial sampling, absolute change in troponin concentration has greater diagnostic accuracy for AMI than relative change criteria. A change of >7 ng/L over a 2-hour interval is suggested as a significant change. If the initial hsTnI is below the 99th percentile upper reference limit, a 50% change from the baseline is considered significant. If the initial hsTnI is above the 99th percentile upper reference limit, a 20% change from the baseline value is considered significant. Performed By: #### B CAER #### [facility] [place] Laboratory [address] [place] [address] MAGNESIUMon 06-02-2021 Magnesium [Mass/Vol] 2.0 mg/dL Normal 1.5-2.1 [facility] [place] Comment on above: Performed By: #### T SH, CMP, CBCD, MG, T4 #### [facility] Laboratory [address] [place] [address] THYROID STIM HORMONE (HS)on 06-02-2021 THYROID STIM HORMONE (HS) < 0.005 Low 0.358-4.75 [facility] [place] Comment on above: Performed By: #### B CAER #### [facility] [place] Laboratory [address] [place] [address] THYROXINE (T4) TOTALon 06-02 T4 [Mass/Vol] 15.5 ug/dL High 4.5-12.1 [facility] [place] Comment on above: Performed By: #### T SH, CMP, CBCD, MG, T4 #### [facility] [place] Laboratory [address] [place] [address] URINE DRUG SCREENon 06-02-19 22 URINE AMPHETAMINES < 1000 Normal 1000ng/ml [facility] [place] Comment on above: Order Comment: SOURC E: URINE,RANDOM Performed By: #### B CAER #### [facility] [place] Laboratory [address] [place] [address] URINE BARBITURATES < 200 Normal 200ng/ml [facility] [place] Comment on above: Order Comment: SOURC E: URINE,RANDOM Performed By: #### B CAER #### [facility] [place] Laboratory [address] [place] [address] URINE BENZODIAZEPINES < 200 Normal 200ng/ml [facility] Comment on above: Order Comment: SOURC E: URINE,RANDOM Performed By: #### B CAER #### [facility] [place] Laboratory [address] [place] [address] URINE CANNABINOIDS (THC) < 50 Normal 50ng/ml [facility] [place] Comment on above: Order Comment: SOURC E: URINE,RANDOM Performed By: #### B CAER #### [facility] [place] [facility] [address] [place] [address] URINE COCAINE > 300 Abnormal 300ng/ml [facility] [place] Comment on above: Order Comment: SOURC E: URINE,RANDOM Performed By: #### B CAER #### [facility] [place] Laboratory [address] [place] [address] URINE METHADONE < 300 Normal 300ng/ml [facility] [place] Comment on above: Order Comment: SOURC E: URINE,RANDOM Performed By: #### B CAER #### [facility] [place] Laboratory [address] [place] [address] URINE OPIATES < 300 Normal 300ng/ml [facility] [place] Comment on above: Order Comment: SOURC E: URINE,RANDOM Performed By: #### B CAER #### [facility] [place] Laboratory [address] [place] [address] URINE PHENCYCLIDINE < 25 Normal 25ng/ml [facility] [place] Comment on above: Order Comment: SOURC E: URINE,RANDOM Result Comment: pH o f the urine has been checked and is within acceptable range 5-8 The Drugs of Abuse are screening results only. Confirmation and Quantitation by GC/MS can be performed by request at an additional charge. ANYTHING EQUAL TO OR GREATER THAN THE REFERENCE INDICATES ABUSE. ( > = POSITIVE < = NEGATIVE ) Performed By: #### B CAER #### [facility] [place] Laboratory [address] [place] [address] CBC with DIFFERENTIALon 02-14 Basophils (Bld) [#/Vol] 0.0 10*3/uL Normal 0.0-0.1 [facility] [place] Comment on above: Performed By: #### E LUIS A, TSH, CBCD, CMP #### [facility] Laboratory [address] [place] [address] Basophils/100 WBC (Bld) 0.9 % Normal 0.0-1.0 [facility] [place] Comment on above: Performed By: #### E LUIS A, TSH, CBCD, CMP #### [facility] Laboratory [address] [place] [address] Eosinophils (Bld) [#/Vol] 0.0 10*3/uL Normal 0.0-0.4 [facility] [place] Comment on above: Performed By: #### E LUIS A, TSH, CBCD, CMP #### [facility] Laboratory [address] [place] [address] Eosinophils/100 WBC (Bld) 0.4 % Low 1.0-4.0 [facility] [place] Comment on above: Performed By: #### E LUIS A, TSH, CBCD, CMP #### [facility] Laboratory [address] [place] [address] Hematocrit (Bld) [Volume fraction] 41.3 % Low 42.0-52.0 [facility] Comment on above: Performed By: #### E LUIS A, TSH, CBCD, CMP #### [facility] [facility] [address] [place] [address] Hemoglobin (Bld) [Mass/Vol] 13.8 g/dL Low 14.0-18.0 [facility] [place] Comment on above: Performed By: #### E LUIS A, TSH, CBCD, CMP #### [facility] [place] [facility] [address] [place] [address] IG # 0.0 10*3/uL Normal 0.0-0.1 [facility] [place] Comment on above: Performed By: #### E LUIS A, TSH, CBCD, CMP #### [facility] [address] [place] [address] IG % 0.0 % Normal 0.0-1.0 [facility] Comment on above: Performed By: #### E LUIS A, TSH, CBCD, CMP #### [facility] [address] [place] [address] Lymphocytes (Bld) [#/Vol] 2.1 10*3/uL Normal 1.3-4.4 [facility] Comment on above: Performed By: #### E LUIS A, TSH, CBCD, CMP #### [facility] [address] [place] [address] Lymphocytes/100 WBC (Bld) 47.6 % High 27.0-41.0 [facility] [place] Comment on above: Performed By: #### E LUIS A, TSH, CBCD, CMP #### [facility] Laboratory [address] [place] [address] MCV (RBC) [Entitic vol] 85.3 fL Normal 80.0-94.0 [facility] [place] Comment on above: Performed By: #### E LUIS A, TSH, CBCD, CMP #### [facility] [address] [place] [address] MEAN CORPUSCULAR HGB 28.5 pg Normal 27.0-31.0 [facility] [place] Comment on above: Performed By: #### E LUIS A, TSH, CBCD, CMP #### [facility] [place] Laboratory [address] [place] [address] MEAN CORPUSCULAR HGB CONC 33.4 g/dl Normal 33.0-37.0 [facility] [place] Comment on above: Performed By: #### E LUIS A, TSH, CBCD, CMP #### [facility] [place] [facility] [address] [place] [address] Monocytes (Bld) [#/Vol] 0.5 10*3/uL Normal 0.1-1.0 [facility] [place] Comment on above: Performed By: #### E LUIS A, TSH, CBCD, CMP #### [facility] [address] [place] [address] Monocytes/100 WBC (Bld) 11.9 % High 3.0-9.0 [facility] [place] Comment on above: Performed By: #### E LUIS A, TSH, CBCD, CMP #### [facility] [place] Laboratory [address] [place] [address] Neutrophils (Bld) [#/Vol] 1.7 10*3/uL Low 2.3-7.9 [facility] Comment on above: Performed By: #### E LUIS A, TSH, CBCD, CMP #### [facility] Laboratory [address] [place] [address] Neutrophils/100 WBC (Bld) 39.2 % Low 47.0-73.0 [facility] [place] Comment on above: Performed By: #### E LUIS A, TSH, CBCD, CMP #### [facility] [address] [place] [address] NUCLEATED RED BLOOD CELL 0.0 10*3/uL Normal 0.0-0.0 [facility] [place] Comment on above: Performed By: #### E LUIS A, TSH, CBCD, CMP #### [facility] [place] [facility] [address] [place] [address] NUCLEATED RED BLOOD CELL 0.0 % Normal 0.0-0.0 [facility] Comment on above: Performed By: #### E LUIS A, TSH, CBCD, CMP #### [facility] [facility] [address] [place] [address] PLATELET COUNT AUTOMATED 206 10*3/uL Normal 130-400 [facility] [place] Comment on above: Performed By: #### E LUIS A, TSH, CBCD, CMP #### [facility] [place] [facility] [address] [place] [address] Platelet mean volume (Bld) [Entitic vol] 9.6 fL Normal 9.6-12.3 [facility] Comment on above: Performed By: #### E LUIS A, TSH, CBCD, CMP #### [facility] [address] [place] [address] RBC (Bld) [#/Vol] 4.84 10*6/uL Normal 4.50-5.90 [facility] Comment on above: Performed By: #### E LUIS A, TSH, CBCD, CMP #### [facility] [address] [place] [address] RED CELL DISTRI WIDTH 14.6 % High 0-14.5 [facility] Comment on above: Performed By: #### E LUIS A, TSH, CBCD, CMP #### [facility] [place] [facility] [address] [place] [address] WBC (Bld) [#/Vol] 4.5 10*3/uL Low 4.8-10.8 [facility] [place] Comment on above: Performed By: #### E LUIS A, TSH, CBCD, CMP #### [facility] [facility] [address] [place] [address] COMPREHENSIVE METABOLIC PANE Talat 02-27-2021 Albumin [Mass/Vol] 3.5 g/dL Normal 3.1-4.5 [facility] [place] Comment on above: Performed By: #### E LUIS A, TSH, CBCD, CMP #### [facility] [facility] [address] [place] [address] ALP [Catalytic activity/Vol] 137 U/L High 45-117 [facility] [place] Comment on above: Performed By: #### E LUIS A, TSH, CBCD, CMP #### [facility] [place] [facility] [address] [place] [address] ALT [Catalytic activity/Vol] 59 U/L Normal 12-78 [facility] [place] Comment on above: Performed By: #### E LUIS A, TSH, CBCD, CMP #### [facility] [place] [facility] [address] [place] [address] AST [Catalytic activity/Vol] 34 U/L Normal 3-35 [facility] [place] Comment on above: Performed By: #### E LUIS A, TSH, CBCD, CMP #### [facility] [place] [address] [place] [address] Bilirubin [Mass/Vol] 0.7 mg/dL Normal 0.2-1.0 [facility] [place] Comment on above: Performed By: #### E LUIS A, TSH, CBCD, CMP #### [facility] [address] [place] [address] Calcium [Mass/Vol] 8.8 mg/dL Normal 8.5-10.5 [facility] [place] Comment on above: Performed By: #### E LUIS A, TSH, CBCD, CMP #### [facility] [place] [facility] [address] [place] [address] Chloride [Moles/Vol] 111 mmol/L High 98-107 [facility] [place] Comment on above: Performed By: #### E LUIS A, TSH, CBCD, CMP #### [facility] [place] [facility] [address] [place] [address] CO2 [Moles/Vol] 24 mmol/L Normal 21-32 [facility] [place] Comment on above: Performed By: #### E LUIS A, TSH, CBCD, CMP #### [facility] [address] [place] [address] Creatinine [Mass/Vol] 0.51 mg/dL Low 0.70-1.30 [facility] Comment on above: Performed By: #### E LUIS A, TSH, CBCD, CMP #### [facility] [place] [address] [place] [address] EST GLOM FILT > 60 Normal [facility] Comment on above: Result Comment: Result Units: mL/min/1.73 m2 Note: Persistent reduction for 3 months or more of an eGFR of <60 ml/min/1.73 m2 defines Chronic Kidney Disease (CKD). Patients with eGFR values greater than or equal to 60 ml/min/1.73 m2 may also have CKD if evidence of persistent proteinuria is present. STAGES OF CKD eGFR Stage 1 Kidney damage with normal kidney function >=90 Stage 2 Kidney damage with mild loss of kidney function 89-60 Stage 3a Mild to moderate loss of kidney function 59-44 Stage 3b Moderate to severe loss of kidney function 43-30 Stage 4 Severe loss of kidney function 29-15 Stage 5 Kidney failure < 15 . Performed By: #### E LUIS A, TSH, CBCD, CMP #### [facility] [address] [place] [address] ESTIMATED GLOM FILT RATE > 60 Normal [facility] Comment on above: Performed By: #### E LUIS A, TSH, CBCD, CMP #### [facility] [place] [address] [place] [address] Glucose [Mass/Vol] 93 mg/dL Normal 65-99 [facility] [place] Comment on above: Performed By: #### E LUIS A, TSH, CBCD, CMP #### [facility] [address] [place] [address] Potassium [Moles/Vol] 4.2 mmol/L Normal 3.5-5.1 [facility] Comment on above: Result Comment: Specimen hemolyzed. Potassium,Magnesium,LD,CK,AST,Iron,Ammonia and TIBC may be falsely increased. Phosphorous and Triglyceride may be falsely decreased Performed By: #### E LUIS A, TSH, CBCD, CMP #### [facility] [address] [place] [address] Protein [Mass/Vol] 6.8 g/dL Normal 6.4-8.2 [facility] Comment on above: Performed By: #### E LUIS A, TSH, CBCD, CMP #### [facility] [address] [place] [address] Sodium [Moles/Vol] 141 mmol/L Normal 136-145 [facility] Comment on above: Performed By: #### E LUIS A, TSH, CBCD, CMP #### [facility] [address] [place] [address] Urea nitrogen [Mass/Vol] 11 mg/dL Normal 7-24 [facility] Comment on above: Performed By: #### E LUIS A, TSH, CBCD, CMP #### [facility] [address] [place] [address] ETHYL ALCOHOLon 02-27-2021 ETHYL ALCOHOL < 3.0 Normal <3 [facility] Comment on above: Performed By: #### E LUIS A, TSH, CBCD, CMP #### [facility] [address] [place] [address] THYROID STIM HORMONE (HS)on 02-27-2021 THYROID STIM HORMONE (HS) < 0.005 Low 0.358-4.75 [facility] Comment on above: Performed By: #### E LUIS A, TSH, CBCD, CMP #### [facility] [address] [place] [address] CT HEAD OR BRAIN W/O CONTRAS Ton 08-15-2020 CT HEAD OR BRAIN W/O CONTRAST ORIGINAL CT HEAD OR BRAIN W/O CONTRAST Clinical Statement: pain, headache for about 15 days Comparison: None Technique: This exam was performed according to our departmental dose optimization program, and includes the following measures where applicable: automated exposure control, adjustment of the mAs and/or kVp according to patient size and/or exam, and an iterative reconstruction algorithm. FINDINGS: There is no evidence for a recent cortical infarct, intracranial hemorrhage, mass effect or midline shift. There is no hydrocephalus. The density in the superior sagittal sinus is normal. No significant focal parenchymal abnormality is seen. Visualized orbital contents are symmetric. Visualized paranasal sinuses and mastoids are clear. The calvarium is intact. IMPRESSION: No acute findings in the brain. . Interpreted By: Roegrs Capellan MD Preliminary Report By: Rogers Capellan MD Electronically Signed By: Rogers Capellan MD Dictated Date: 08/15/2020 11:29:18 AM Prelim Date: 08/15/2020 11:29:18 AM Sign Date: 08/15/2020 11:30:32 AM Ordering Provider:Sandor Nunn [facility] [place] TSHon 08-15-2020 TSH 0.017 mIU/mL Low 0.550-4.780 [facility] Comment on above: Result Comment: No te - New Reference Range in effect 19 Performed By: #### T #### [facility] [address] [place] [address] LIVER 04-12-2020 LIVER US LIVER Ordering Physician: Marco Antonio Marks 04/12/2020 1:45 PM ULTRASOUND LIVER Clinical Statement: Elevated liver enzymes Comparison: None FINDINGS: The liver is normal in size, contour and echotexture. There is no hepatic mass or biliary ductal dilatation. The common bile duct is normal 3.2 mm. The gallbladder is adequately distended without wall thickening or gallstones. The pancreas is unremarkable. There is no free fluid in the right upper quadrant. The sonographic Pederson sign is negative. IMPRESSION: Normal ultrasound. ---- Electronic Signature on File ---- Signed By: Amadeo Gómez MD [email or web address] Dictated: 04/12/2020 2:08 PM Signed: 04/12/2020 2:09 PM Reported By: AMADEO GÓMEZ M.D. Signed By: AMADEO GÓMEZ M.D. Normal [facility] T4, [facility] 02-26-2020 Free T4 [Mass/Vol] 0.7 ng/dL 0.7 - 1.7 ng/dL [facility] Interpretation and review of laboratory results Normal [facility] TSHon 02-26-2020 Interpretation and review of laboratory results Abnormal [facility] TSH Qn m[IU]/L Low [facility] T4, Freeon 01-14-2020 Free T4 [Mass/Vol] 1.1 ng/dL 0.7 - 1.7 ng/dL [facility] Interpretation and review of laboratory results Normal [facility] TSHon 01-14-2020 Interpretation and review of laboratory results Abnormal [facility] TSH Qn m[IU]/L Low [facility] ECG 12-LEADon 01-05-2020 Atrial Rate 103 BPM [facility] P [place] 65 degrees [facility] P-R Interval 192 ms [facility] Q-T Interval 346 ms [facility] QRS Duration 96 ms [facility] QTC Calculation (Bezet) 453 ms [facility] R [place] 73 degrees [facility] T [place] 68 degrees [facility] Ventricular Rate [address] [facility] th Sinus tachycardia Possible Left atrial enlargement Borderline ECG ECG Cart Interpretation see physician note for interpretation. Confirmed by Ryann Clarke ([id number]) on 01/05/2020 1:34:18 PM [facility] T4, Freeon 01-05-2020 Free T4 [Mass/Vol] 0.9 ng/dL 0.7 - 1.7 ng/dL [facility] Interpretation and review of laboratory results Normal [facility] TSHon 01-05-2020 Interpretation and review of laboratory results Abnormal [facility] TSH Qn m[IU]/L Low [facility] CBC WITH AUTO DIFFERENTIALon 12-31-2019 Basophils (Bld) [#/Vol] 0.09 10*3/uL [facility] Basophils/100 WBC (Bld) 0.9 % [facility] Eosinophils (Bld) [#/Vol] 0.38 10*3/uL [facility] Eosinophils/100 WBC (Bld) 3.6 % [facility] Erythrocyte distribution width (RBC) [Entitic vol] 14.6 % 11.6 - 14.8 % [facility] Hematocrit (Bld) [Volume fraction] 39.5 % Low 41 - 53 % [facility] Hemoglobin (Bld) [Mass/Vol] 12.8 g/dL Low 13.5 - 17.5 g/dL [facility] Immature granulocytes (Bld) [#/Vol] 0.04 10*3/uL [facility] Immature granulocytes/100 WBC (Bld) 0.40 % [facility] Comment on above: The IG parameter is the percentage of metamyelocytes, myelocytes and promyelocytes. An immature granulocyte count (IG) of 1% or more suggests the possibility of infection, an IG count of 3% is very likely related to an infection. Interpretation and review of laboratory results Abnormal [facility] Lymphocytes (Bld) [#/Vol] 4.33 10*3/uL High [facility] Lymphocytes/100 WBC (Bld) 40.9 % [facility] MCH (RBC) [Entitic mass] 28.6 pg 26 - 34 pg [facility] MCHC (RBC) [Mass/Vol] 32.4 g/dL 31 - 37 g/dL [facility] MCV (RBC) [Entitic vol] 88.4 fL 80 - 100 fL [facility] Monocytes (Bld) [#/Vol] 0.96 10*3/uL High [facility] Monocytes/100 WBC (Bld) 9.1 % [facility] Neutrophils (Bld) [#/Vol] 4.78 10*3/uL [facility] Neutrophils/100 WBC (Bld) 45.1 % [facility] Nucleated RBC (Bld) [#/Vol] 0.00 10*3/uL [facility] Nucleated RBC/100 WBC (Bld) [Ratio] 0.0 % [facility] Platelet mean volume (Bld) [Entitic vol] 9.0 fL Low 9.4 - 12.4 fL [facility] Platelets (Bld) [#/Vol] 246 10*3/uL [facility] RBC (Bld) [#/Vol] 4.47 10*6/uL Low [facility] ealth WBC (Bld) [#/Vol] 10.58 10*3/uL [facility] Metabolic Pane talat 12-31-2019 Albumin [Mass/Vol] 3.2 g/dL 3.2 - 5.2 g/dL [facility] ALP [Catalytic activity/Vol] 204 U/L High 40 - 140 U/L [facility] ALT [Catalytic activity/Vol] 25 U/L 14 - 65 U/L [facility] Anion gap [Moles/Vol] 9 mmol/L Low 10 - 2 0 mmol/L [facility] AST [Catalytic activity/Vol] 11 U/L 0 - 45 U/L [facility] Bilirubin [Mass/Vol] 0.2 mg/dL 0 - 1.3 mg/dL [facility] Calcium [Mass/Vol] 8.6 mg/dL 8.4 - 10. 2 mg/dL [facility] Chloride [Moles/Vol] 110 mmol/L High 98 - 10 8 mmol/L [facility] Creatinine [Mass/Vol] 0.57 mg/dL 0.50 - 1.30 [facility] GFR/1.73 sq M predicted among non-blacks MDRD (S/P/Bld) [Vol rate/Area] The eGFR should be used for monitoring renal function only and not for medication dosing. [facility] GFR/1.73 sq M.predicted CKD-EPI (S/P/Bld) [Vol rate/Area] 147 >=60 mL/min/1.73 m2 [facility] Glucose [Mass/Vol] 92 mg/dL 65 - 99 mg/dL [facility] HCO3 [Moles/Vol] 26 mmol/L 21 - 32 mmol/L [facility] Interpretation and review of laboratory results Abnormal [facility] Potassium [Moles/Vol] 3.9 mmol/L 3.5 - 5.1 mmol/L [facility] Protein [Mass/Vol] 6.4 g/dL 6 - 8 g/dL [facility] Sodium [Moles/Vol] 141 mmol/L 135 - 145 mmol/L [facility] Urea nitrogen [Mass/Vol] 12 mg/dL 8 - 25 mg/dL [facility] Urea nitrogen/Creatinine [Mass ratio] 21.1 mg/mg High [facility] Magnesium Levelon 12-31-2019 Interpretation and review of laboratory results Normal [facility] Magnesium [Mass/Vol] 2.0 mg/dL 1.6 - 2 .4 mg/dL [facility] Valproic Acid Levelon 2019 Interpretation and review of laboratory results Abnormal [facility] Valproate [Mass/Vol] 22 ug/mL Low [facility] CBC WITH AUTO DIFFERENTIALon 12-30-2019 Basophils (Bld) [#/Vol] 0.07 10*3/uL [facility] Basophils/100 WBC (Bld) 0.8 % [facility] Eosinophils (Bld) [#/Vol] 0.42 10*3/uL [facility] Eosinophils/100 WBC (Bld) 4.5 % [facility] Erythrocyte distribution width (RBC) [Entitic vol] 14.7 % 11.6 - 14.8 % [facility] Hematocrit (Bld) [Volume fraction] 38.6 % Low 41 - 53 % [facility] Hemoglobin (Bld) [Mass/Vol] 12.3 g/dL Low 13.5 - 17.5 g/dL [facility] Immature granulocytes (Bld) [#/Vol] 0.02 10*3/uL [facility] Immature granulocytes/100 WBC (Bld) 0.20 % [facility] Comment on above: The IG parameter is the percentage of metamyelocytes, myelocytes and promyelocytes. An immature granulocyte count (IG) of 1% or more suggests the possibility of infection, an IG count of 3% is very likely related to an infection. Interpretation and review of laboratory results Abnormal [facility] Lymphocytes (Bld) [#/Vol] 4.78 10*3/uL High [facility] Lymphocytes/100 WBC (Bld) 51.2 % [facility] MCH (RBC) [Entitic mass] 29.4 pg 26 - 34 pg [facility] MCHC (RBC) [Mass/Vol] 31.9 g/dL 31 - 37 g/dL [facility] MCV (RBC) [Entitic vol] 92.3 fL 80 - 100 fL [facility] Monocytes (Bld) [#/Vol] 0.75 10*3/uL [facility] Monocytes/100 WBC (Bld) 8.0 % [facility] Neutrophils (Bld) [#/Vol] 3.29 10*3/uL [facility] Neutrophils/100 WBC (Bld) 35.3 % [facility] Nucleated RBC (Bld) [#/Vol] 0.00 10*3/uL [facility] Nucleated RBC/100 WBC (Bld) [Ratio] 0.0 % [facility] Platelet mean volume (Bld) [Entitic vol] 9.8 fL 9.4 - 12.4 fL [facility] Platelets (Bld) [#/Vol] 253 10*3/uL [facility] RBC (Bld) [#/Vol] 4.18 10*6/uL Low [facility] e[facility] WBC (Bld) [#/Vol] 9.33 10*3/uL [facility] CPK NO MBon 12-30-2019 CK [Catalytic activity/Vol] 294 U/L High 60 - 225 U/L [facility] Interpretation and review of laboratory results Abnormal [facility] Comprehensive Metabolic Pane talat 12-30-2019 Albumin [Mass/Vol] 3.0 g/dL Low 3.2 - 5.2 g/dL [facility] ALP [Catalytic activity/Vol] 188 U/L High 40 - 140 U/L [facility] ALT [Catalytic activity/Vol] 24 U/L 14 - 65 U/L [facility] Anion gap [Moles/Vol] 11 mmol/L 10 - 2 0 mmol/L [facility] AST [Catalytic activity/Vol] 15 U/L 0 - 45 U/L [facility] Bilirubin [Mass/Vol] 0.2 mg/dL 0 - 1.3 mg/dL [facility] Calcium [Mass/Vol] 8.2 mg/dL Low 8.4 - 10. 2 mg/dL [facility] Chloride [Moles/Vol] 114 mmol/L High 98 - 10 8 mmol/L [facility] Creatinine [Mass/Vol] 0.56 mg/dL 0.50 - 1.30 [facility] GFR/1.73 sq M predicted among non-blacks MDRD (S/P/Bld) [Vol rate/Area] The eGFR should be used for monitoring renal function only and not for medication dosing. [facility] GFR/1.73 sq M.predicted CKD-EPI (S/P/Bld) [Vol rate/Area] 148 >=60 mL/min/1.73 m2 [facility] Glucose [Mass/Vol] 95 mg/dL 65 - 99 mg/dL [facility] HCO3 [Moles/Vol] 21 mmol/L 21 - 32 mmol/L [facility] Interpretation and review of laboratory results Abnormal [facility] Potassium [Moles/Vol] 4.2 mmol/L 3.5 - 5.1 mmol/L [facility] Protein [Mass/Vol] 6.0 g/dL 6 - 8 g/dL [facility] Sodium [Moles/Vol] 142 mmol/L 135 - 145 mmol/L [facility] Urea nitrogen [Mass/Vol] 8 mg/dL 8 - 25 mg/dL [facility] Urea nitrogen/Creatinine [Mass ratio] 14.3 mg/mg [facility] Magnesium Levelon 12-30-2019 Interpretation and review of laboratory results Normal [facility] Magnesium [Mass/Vol] 2.0 mg/dL 1.6 - 2 .4 mg/dL [facility] T3, Freeon 12-30-2019 Free T3 [Mass/Vol] 3.0 pg/mL 2 - 4.4 pg/mL [facility] Interpretation and review of laboratory results Normal [facility] CPK NO MBon 12-29-2019 CK [Catalytic activity/Vol] 572 U/L High 60 - 225 U/L [facility] Interpretation and review of laboratory results Abnormal [facility] T4, Freeon 12-29-2019 Free T4 [Mass/Vol] 0.9 ng/dL 0.7 - 1.7 ng/dL [facility] Interpretation and review of laboratory results Normal [facility] TSH with Reflex Free T4on Interpretation and review of laboratory results Abnormal [facility] TSH Qn m[IU]/L Low [facility] CBC WITH AUTO DIFFERENTIALon 12-28-2019 Basophils (Bld) [#/Vol] 0.07 10*3/uL [facility] Basophils/100 WBC (Bld) 0.7 % [facility] Eosinophils (Bld) [#/Vol] 0.43 10*3/uL [facility] Eosinophils/100 WBC (Bld) 4.5 % [facility] Erythrocyte distribution width (RBC) [Entitic vol] 14.7 % 11.6 - 14.8 % [facility] Hematocrit (Bld) [Volume fraction] 37.4 % Low 41 - 53 % [facility] Hemoglobin (Bld) [Mass/Vol] 12.0 g/dL Low 13.5 - 17.5 g/dL [facility] Immature granulocytes (Bld) [#/Vol] 0.02 10*3/uL [facility] Immature granulocytes/100 WBC (Bld) 0.20 % [facility] Comment on above: The IG parameter is the percentage of metamyelocytes, myelocytes and promyelocytes. An immature granulocyte count (IG) of 1% or more suggests the possibility of infection, an IG count of 3% is very likely related to an infection. Interpretation and review of laboratory results Abnormal [facility] Lymphocytes (Bld) [#/Vol] 4.47 10*3/uL High [facility] Lymphocytes/100 WBC (Bld) 47.0 % [facility] MCH (RBC) [Entitic mass] 28.8 pg 26 - 34 pg [facility] MCHC (RBC) [Mass/Vol] 32.1 g/dL 31 - 37 g/dL [facility] MCV (RBC) [Entitic vol] 89.7 fL 80 - 100 fL [facility] Monocytes (Bld) [#/Vol] 0.75 10*3/uL [facility] Monocytes/100 WBC (Bld) 7.9 % [facility] Neutrophils (Bld) [#/Vol] 3.78 10*3/uL [facility] Neutrophils/100 WBC (Bld) 39.7 % [facility] Nucleated RBC (Bld) [#/Vol] 0.00 10*3/uL [facility] Nucleated RBC/100 WBC (Bld) [Ratio] 0.0 % [facility] Platelet mean volume (Bld) [Entitic vol] 9.0 fL Low 9.4 - 12.4 fL [facility] Platelets (Bld) [#/Vol] 249 10*3/uL [facility] RBC (Bld) [#/Vol] 4.17 10*6/uL Low [facility] WBC (Bld) [#/Vol] 9.52 10*3/uL [facility] CPK NO MBon 12-28-2019 CK [Catalytic activity/Vol] 425 U/L High 60 - 225 U/L [facility] Interpretation and review of laboratory results Abnormal [facility] Lactic Acid, Plasmaon 2019 Interpretation and review of laboratory results Normal [facility] Lactate [Moles/Vol] 1.9 mmol/L 0.6 - 2 mmol/L [facility] Basic Metabolic Panelon 12-15 Anion gap [Moles/Vol] 6 mmol/L Low 10 - 2 0 mmol/L [facility] Calcium [Mass/Vol] 8.4 mg/dL 8.4 - 10. 2 mg/dL [facility] Chloride [Moles/Vol] 114 mmol/L High 98 - 10 8 mmol/L [facility] Creatinine [Mass/Vol] 0.58 mg/dL 0.50 - 1.30 Oh [facility] GFR/1.73 sq M predicted among non-blacks MDRD (S/P/Bld) [Vol rate/Area] The eGFR should be used for monitoring renal function only and not for medication dosing. [facility] GFR/1.73 sq M.predicted CKD-EPI (S/P/Bld) [Vol rate/Area] 146 >=60 mL/min/1.73 m2 [facility] Glucose [Mass/Vol] 98 mg/dL 65 - 99 mg/dL [facility] HCO3 [Moles/Vol] 26 mmol/L 21 - 32 mmol/L [facility] Interpretation and review of laboratory results Abnormal [facility] Potassium [Moles/Vol] 4.2 mmol/L 3.5 - 5.1 mmol/L [facility] Sodium [Moles/Vol] 142 mmol/L 135 - 145 mmol/L [facility] Urea nitrogen [Mass/Vol] 15 mg/dL 8 - 25 mg/dL [facility] Urea nitrogen/Creatinine [Mass ratio] 25.9 mg/mg High [facility] CPK NO MBon 12-27-2019 CK [Catalytic activity/Vol] 904 U/L High 60 - 225 U/L [facility] Interpretation and review of laboratory results Abnormal [facility] Alcohol, Medicalon 0 Ethanol [Mass/Vol] mg/dL <10.00 mg/dL [facility] Comment on above: Alcohol cutoff: <10. 00 mg/dL = None Detected Interpretation and review of laboratory results Normal [facility] BMPon 12-26-2019 Anion gap [Moles/Vol] 11 mmol/L 10 - 2 0 mmol/L [facility] Calcium [Mass/Vol] 9.1 mg/dL 8.4 - 10. 2 mg/dL [facility] Chloride [Moles/Vol] 106 mmol/L 98 - 10 8 mmol/L [facility] Creatinine [Mass/Vol] 0.96 mg/dL 0.50 - 1.30 Oh [facility] GFR/1.73 sq M predicted among non-blacks MDRD (S/P/Bld) [Vol rate/Area] The eGFR should be used for monitoring renal function only and not for medication dosing. [facility] GFR/1.73 sq M.predicted CKD-EPI (S/P/Bld) [Vol rate/Area] 113 >=60 mL/min/1.73 m2 [facility] Glucose [Mass/Vol] 93 mg/dL 65 - 99 mg/dL [facility] HCO3 [Moles/Vol] 26 mmol/L 21 - 32 mmol/L [facility] Interpretation and review of laboratory results Normal [facility] Potassium [Moles/Vol] 4.0 mmol/L 3.5 - 5.1 mmol/L [facility] Sodium [Moles/Vol] 139 mmol/L 135 - 145 mmol/L [facility] Urea nitrogen [Mass/Vol] 14 mg/dL 8 - 25 mg/dL [facility] Urea nitrogen/Creatinine [Mass ratio] 14.6 mg/mg [facility] CBC WITH AUTO DIFFERENTIALon 12-26-2019 Basophils (Bld) [#/Vol] 0.10 10*3/uL [facility] Basophils/100 WBC (Bld) 0.8 % [facility] Eosinophils (Bld) [#/Vol] 0.11 10*3/uL [facility] Eosinophils/100 WBC (Bld) 0.8 % [facility] Erythrocyte distribution width (RBC) [Entitic vol] 14.3 % 11.6 - 14.8 % [facility] Hematocrit (Bld) [Volume fraction] 42.3 % 41 - 53 % [facility] Hemoglobin (Bld) [Mass/Vol] 13.8 g/dL 13.5 - 17.5 g/dL [facility] Immature granulocytes (Bld) [#/Vol] 0.04 10*3/uL [facility] Immature granulocytes/100 WBC (Bld) 0.30 % [facility] Comment on above: The IG parameter is the percentage of metamyelocytes, myelocytes and promyelocytes. An immature granulocyte count (IG) of 1% or more suggests the possibility of infection, an IG count of 3% is very likely related to an infection. Interpretation and review of laboratory results Abnormal [facility] Lymphocytes (Bld) [#/Vol] 3.87 10*3/uL [facility] Lymphocytes/100 WBC (Bld) 29.8 % [facility] MCH (RBC) [Entitic mass] 28.8 pg 26 - 34 pg [facility] MCHC (RBC) [Mass/Vol] 32.6 g/dL 31 - 37 g/dL [facility] MCV (RBC) [Entitic vol] 88.3 fL 80 - 100 fL [facility] Monocytes (Bld) [#/Vol] 1.14 10*3/uL High [facility] Monocytes/100 WBC (Bld) 8.8 % [facility] Neutrophils (Bld) [#/Vol] 7.74 10*3/uL High [facility] Neutrophils/100 WBC (Bld) 59.5 % [facility] Nucleated RBC (Bld) [#/Vol] 0.00 10*3/uL [facility] Nucleated RBC/100 WBC (Bld) [Ratio] 0.0 % [facility] Platelet mean volume (Bld) [Entitic vol] 9.3 fL Low 9.4 - 12.4 fL [facility] Platelets (Bld) [#/Vol] 306 10*3/uL [facility] RBC (Bld) [#/Vol] 4.79 10*6/uL [facility] WBC (Bld) [#/Vol] 13.00 10*3/uL [facility] COVID-19, Molecularon 2019 Interpretation and review of laboratory results Normal [facility] SARS-CoV-2 Not Detected Not Detected [facility] Comment on above: This test was perfor med under the FDA's Emergency Use Authorization (EUA). Testing was performed using the [employer] ID NOW COVID-19 assay on the ID NOW platform. This test has not been approved for use in asymptomatic patients and its performance in this patient population has not been evaluated. Negative results do not rule out the presence of SARS-CoV-2/COVID-19. Fact sheets for the EUA can be found at the following links: For Healthcare Providers: https://www.fda.gov/media/249696/download For Patients: https://www.fda.gov/media/969966/download CPK NO MBon 12-26-2019 CK [Catalytic activity/Vol] 1431 U/L High 60 - 225 U/L [facility] Interpretation and review of laboratory results Abnormal [facility] CK [Catalytic activity/Vol] 1710 U/L High 60 - 225 U/L [facility] DRUGS OF ABUSE SCREEN, URINE on 12-26-2019 Amphetamines Ql (U) None Detected None Detected [facility] Comment on above: Urine Amphetamine Cu toff: < 1000 ng/mL = None Detected Barbiturates Screen Ql (U) None Detected None Detected [facility] Comment on above: Urine Barbiturates C utoff: < 200 ng/mL = None Detected Benzodiazepines Ql (U) None Detected None Detected [facility] Comment on above: Urine Benzodiazepine Cutoff: < 200 ng/mL = None Detected Cannabinoids Screen Ql (U) None Detected None Detected [facility] Comment on above: Urine Cannabinoids C utoff: < 50 ng/mL = None Detected Cocaine Ql (U) None Detected None Detected [facility] Comment on above: Urine Cocaine Cutoff : < 300 ng/mL = None Detected Interpretation and review of laboratory results Normal [facility] Methadone Screen Ql (U) None Detected None Detected [facility] Comment on above: Urine Methadone Cuto ff: < 300 ng/mL = None Detected Opiates Screen Ql (U) None Detected None Detected [facility] Comment on above: Urine Opiates Cutoff : < 300 ng/mL = None Detected Oxycodone Ql (U) None Detected None Detected [facility] Comment on above: Urine Oxycodone Cuto ff: < 100 ng/mL = None Detected Screen results shoul d be used for treatment purposes only. [facility] Hepatic Function Panel (LFT) on 12-26-2019 Albumin [Mass/Vol] 3.9 g/dL 3.2 - 5.2 g/dL [facility] ALP [Catalytic activity/Vol] 221 U/L High 40 - 140 U/L [facility] ALT [Catalytic activity/Vol] 30 U/L 14 - 65 U/L [facility] AST [Catalytic activity/Vol] 28 U/L 0 - 45 U/L [facility] Bilirubin [Mass/Vol] 0.2 mg/dL 0 - 1.3 mg/dL [facility] Bilirubin.conjugated [Mass/Vol] mg/dL 0 - 0.4 mg/dL [facility] Protein [Mass/Vol] 7.5 g/dL 6 - 8 g/dL [facility] alth Otheron 12-26-2019 Extra Tube Hold for add-ons. [facility] Comment on above: Auto resulted. Interpretation and review of laboratory results Abnormal [facility] T4, Freeon 12-26-2019 Free T4 [Mass/Vol] 1.0 ng/dL 0.7 - 1.7 ng/dL [facility] Interpretation and review of laboratory results Normal [facility] TSH with Reflex Free T4on TSH Qn m[IU]/L Low [facility] URINALYSISon 12-26-2019 Bacteria Auto Ql (U) None Seen None Se en /hpf [facility] Bilirubin Ql (U) Negative Negative [facility] th Clarity Refractometry automated (U) Clear Clear [facility] Color (U) Colorless Colorless, Yellow [facility] Glucose Auto test strip (U) [Mass/Vol] Negative Negative mg/dL [facility] Hemoglobin Auto test strip Ql (U) Negative Negative [facility] Interpretation and review of laboratory results Abnormal [facility] Ketones (U) [Mass/Vol] Negative Negative mg/dL [facility] Leukocyte esterase Auto test strip Ql (U) Negative Negative [facility] Nitrite Auto test strip Ql (U) Negative Negative [facility] pH (U) 7.5 [pH] High [facility] Protein (U) [Mass/Vol] Negative Negative mg/dL [facility] RBC Auto (Urine sed) [#/Area] 1 [facility] Specific gravity (U) [Rel density] 1.010 [facility] Urobilinogen (U) [Mass/Vol] <2.0 <2.0 mg/dL [facility] Microscopic examinat ion is performed on all urinalysis samples and only positive findings are reported. The test for blood on the chemical analytic portion of urinalysis may also be positive due to hemoglobinuria and myoglobinuria and if red blood cells are present they are quantified by microscopic examination. [facility] XR Chest 1 Viewon 12-26-2019 No acute heart or viki ng disease identified. Workstation ID: [id number] [facility] Interface, Rad In Valentino slater Speechq - 12/26/2019 7:58 PM EDT EXAMINATION: XR CHEST PA/AP 12/26/2019 7:52 pm HISTORY: ORDERING SYSTEM PROVIDED HISTORY: abnormal labs, TECHNOLOGIST PROVIDED HISTORY: Illness/Other Reason for exam: abnormal labs Cancer History: u Surgery, RadiationHistory: u Encounter Type: Initial Additional signs and symptoms: cough ORDERING SYSTEM PROVIDED DIAGNOSIS CODES: COMPARISON: 11/20/2019 FINDINGS: Heart and vascularity are unremarkable. Lungs are expanded and free of focal infiltrates. IMPRESSION: No acute heart or lung disease identified. Workstation ID: [id number] [facility] EXAMINATION: XR CHES T PA/AP 12/26/2019 7:52 pm HISTORY: ORDERING SYSTEM PROVIDED HISTORY: abnormal labs, TECHNOLOGIST PROVIDED HISTORY: Illness/Other Reason for exam: abnormal labs Cancer History: u Surgery, RadiationHistory: u Encounter Type: Initial Additional signs and symptoms: cough ORDERING SYSTEM PROVIDED DIAGNOSIS CODES: COMPARISON: 11/20/2019 FINDINGS: Heart and vascularity are unremarkable. Lungs are expanded and free of focal infiltrates. [facility] T4, Freeon 12-08-2019 Free T4 [Mass/Vol] 1.4 ng/dL 0.7 - 1.7 ng/dL [facility] Interpretation and review of laboratory results Normal [facility] TSH with Reflex Free T4on Interpretation and review of laboratory results Abnormal [facility] TSH Qn m[IU]/L Low [facility] CBC WITH AUTO DIFFERENTIALon 12-02-2019 Basophils (Bld) [#/Vol] 0.06 10*3/uL [facility] Basophils/100 WBC (Bld) 0.8 % [facility] Eosinophils (Bld) [#/Vol] 0.18 10*3/uL [facility] Eosinophils/100 WBC (Bld) 2.4 % [facility] Erythrocyte distribution width (RBC) [Entitic vol] 13.3 % 11.6 - 14.8 % [facility] Hematocrit (Bld) [Volume fraction] 42.6 % 41 - 53 % [facility] Hemoglobin (Bld) [Mass/Vol] 14.0 g/dL 13.5 - 17.5 g/dL [facility] Immature granulocytes (Bld) [#/Vol] 0.01 10*3/uL [facility] Immature granulocytes/100 WBC (Bld) 0.10 % [facility] Comment on above: The IG parameter is the percentage of metamyelocytes, myelocytes and promyelocytes. An immature granulocyte count (IG) of 1% or more suggests the possibility of infection, an IG count of 3% is very likely related to an infection. Interpretation and review of laboratory results Abnormal [facility] Lymphocytes (Bld) [#/Vol] 3.58 10*3/uL [facility] Lymphocytes/100 WBC (Bld) 46.9 % [facility] MCH (RBC) [Entitic mass] 28.0 pg 26 - 34 pg [facility] MCHC (RBC) [Mass/Vol] 32.9 g/dL 31 - 37 g/dL [facility] MCV (RBC) [Entitic vol] 85.2 fL 80 - 100 fL [facility] Monocytes (Bld) [#/Vol] 0.79 10*3/uL [facility] Monocytes/100 WBC (Bld) 10.3 % [facility] Neutrophils (Bld) [#/Vol] 3.02 10*3/uL [facility] Neutrophils/100 WBC (Bld) 39.5 % [facility] Nucleated RBC (Bld) [#/Vol] 0.00 10*3/uL [facility] Nucleated RBC/100 WBC (Bld) [Ratio] 0.0 % [facility] Platelet mean volume (Bld) [Entitic vol] 9.3 fL Low 9.4 - 12.4 fL [facility] Platelets (Bld) [#/Vol] 216 10*3/uL [facility] RBC (Bld) [#/Vol] 5.00 10*6/uL [facility] WBC (Bld) [#/Vol] 7.64 10*3/uL [facility] Comprehensive Metabolic Pane [facility] 12-02-2019 Albumin [Mass/Vol] 3.3 g/dL 3.2 - 5.2 g/dL [facility] ALP [Catalytic activity/Vol] 220 U/L High 40 - 140 U/L [facility] ALT [Catalytic activity/Vol] 43 U/L 14 - 65 U/L [facility] Anion gap [Moles/Vol] 9 mmol/L Low 10 - 2 0 mmol/L [facility] AST [Catalytic activity/Vol] 12 U/L 0 - 45 U/L [facility] Bilirubin [Mass/Vol] 0.3 mg/dL 0 - 1.3 mg/dL [facility] Calcium [Mass/Vol] 9.4 mg/dL 8.4 - 10. 2 mg/dL [facility] Chloride [Moles/Vol] 110 mmol/L High 98 - 10 8 mmol/L [facility] Creatinine [Mass/Vol] 0.56 mg/dL 0.50 - 1.30 [facility] GFR/1.73 sq M predicted among non-blacks MDRD (S/P/Bld) [Vol rate/Area] The eGFR should be used for monitoring renal function only and not for medication dosing. [facility] GFR/1.73 sq M.predicted CKD-EPI (S/P/Bld) [Vol rate/Area] 148 >=60 mL/min/1.73 m2 [facility] Glucose [Mass/Vol] 90 mg/dL 65 - 99 mg/dL [facility] HCO3 [Moles/Vol] 28 mmol/L 21 - 32 mmol/L [facility] Interpretation and review of laboratory results Abnormal [facility] Potassium [Moles/Vol] 4.2 mmol/L 3.5 - 5.1 mmol/L [facility] Protein [Mass/Vol] 6.6 g/dL 6 - 8 g/dL [facility] Sodium [Moles/Vol] 143 mmol/L 135 - 145 mmol/L [facility] Urea nitrogen [Mass/Vol] 13 mg/dL 8 - 25 mg/dL [facility] Urea nitrogen/Creatinine [Mass ratio] 23.2 mg/mg High [facility] EKGon 11-21-2019 Ordered by an unspecified provider. [facility] Alcohol, Medicalon 0 Ethanol [Mass/Vol] mg/dL <10.00 mg/dL [facility] Comment on above: Alcohol cutoff: <10. 00 mg/dL = None Detected Interpretation and review of laboratory results Normal [facility] CBC WITH AUTO DIFFERENTIALon 11-20-2019 Basophils (Bld) [#/Vol] 0.04 10*3/uL [facility] Basophils/100 WBC (Bld) 0.4 % [facility] Eosinophils (Bld) [#/Vol] 0.07 10*3/uL [facility] Eosinophils/100 WBC (Bld) 0.7 % [facility] Erythrocyte distribution width (RBC) [Entitic vol] 14.1 % 11.6 - 14.8 % [facility] Hematocrit (Bld) [Volume fraction] 39.2 % Low 41 - 53 % [facility] Hemoglobin (Bld) [Mass/Vol] 13.0 g/dL Low 13.5 - 17.5 g/dL [facility] Immature granulocytes (Bld) [#/Vol] 0.04 10*3/uL [facility] Immature granulocytes/100 WBC (Bld) 0.40 % [facility] Comment on above: The IG parameter is the percentage of metamyelocytes, myelocytes and promyelocytes. An immature granulocyte count (IG) of 1% or more suggests the possibility of infection, an IG count of 3% is very likely related to an infection. Interpretation and review of laboratory results Abnormal [facility] Lymphocytes (Bld) [#/Vol] 3.18 10*3/uL [facility] Lymphocytes/100 WBC (Bld) 30.8 % [facility] MCH (RBC) [Entitic mass] 28.4 pg 26 - 34 pg [facility] MCHC (RBC) [Mass/Vol] 33.2 g/dL 31 - 37 g/dL [facility] MCV (RBC) [Entitic vol] 85.8 fL 80 - 100 fL [facility] Monocytes (Bld) [#/Vol] 1.02 10*3/uL High [facility] Monocytes/100 WBC (Bld) 9.9 % [facility] Neutrophils (Bld) [#/Vol] 5.98 10*3/uL [facility] Neutrophils/100 WBC (Bld) 57.8 % [facility] Nucleated RBC (Bld) [#/Vol] 0.00 10*3/uL [facility] Nucleated RBC/100 WBC (Bld) [Ratio] 0.0 % [facility] Platelet mean volume (Bld) [Entitic vol] 9.5 fL 9.4 - 12.4 fL [facility] Platelets (Bld) [#/Vol] 239 10*3/uL [facility] RBC (Bld) [#/Vol] 4.57 10*6/uL [facility] WBC (Bld) [#/Vol] 10.33 10*3/uL [facility] COVID-19, Molecularon 2019 Interpretation and review of laboratory results Normal [facility] SARS-CoV-2 Not Detected Not Detected [facility] Comment on above: This test was perfor med under the FDA's Emergency Use Authorization (EUA). Testing was performed using the [employer] ID NOW COVID-19 assay on the ID NOW platform. This test has not been approved for use in asymptomatic patients and its performance in this patient population has not been evaluated. Negative results do not rule out the presence of SARS-CoV-2/COVID-19. Fact sheets for the EUA can be found at the following links: For Healthcare Providers: https://www.fda.gov/media/439915/download For Patients: https://www.fda.gov/media/521178/download CPK NO MBon 11-20-2019 CK [Catalytic activity/Vol] 90 U/L 60 - 225 U/L [facility] Interpretation and review of laboratory results Normal [facility] Comprehensive Metabolic Pane talat 11-20-2019 Albumin [Mass/Vol] 3.9 g/dL 3.2 - 5.2 g/dL [facility] ALP [Catalytic activity/Vol] 224 U/L High 40 - 140 U/L [facility] ALT [Catalytic activity/Vol] 50 U/L 14 - 65 U/L [facility] Anion gap [Moles/Vol] 13 mmol/L 10 - 2 0 mmol/L [facility] AST [Catalytic activity/Vol] 19 U/L 0 - 45 U/L [facility] Bilirubin [Mass/Vol] 0.6 mg/dL 0 - 1.3 mg/dL [facility] Calcium [Mass/Vol] 9.0 mg/dL 8.4 - 10. 2 mg/dL [facility] Chloride [Moles/Vol] 108 mmol/L 98 - 10 8 mmol/L [facility] Creatinine [Mass/Vol] 0.59 mg/dL 0.50 - 1.30 [facility] GFR/1.73 sq M predicted among non-blacks MDRD (S/P/Bld) [Vol rate/Area] The eGFR should be used for monitoring renal function only and not for medication dosing. [facility] GFR/1.73 sq M.predicted CKD-EPI (S/P/Bld) [Vol rate/Area] 145 >=60 mL/min/1.73 m2 [facility] Glucose [Mass/Vol] 93 mg/dL 65 - 99 mg/dL [facility] HCO3 [Moles/Vol] 22 mmol/L 21 - 32 mmol/L [facility] Potassium [Moles/Vol] 3.8 mmol/L 3.5 - 5.1 mmol/L [facility] Protein [Mass/Vol] 7.2 g/dL 6 - 8 g/dL [facility] Sodium [Moles/Vol] 139 mmol/L 135 - 145 mmol/L [facility] Urea nitrogen [Mass/Vol] 11 mg/dL 8 - 25 mg/dL [facility] Urea nitrogen/Creatinine [Mass ratio] 18.6 mg/mg [facility] DRUGS OF ABUSE SCREEN, URINE on 11-20-2019 Amphetamines Ql (U) Positive Abnormal None Detected [facility] Comment on above: Urine Amphetamine Cu toff: < 1000 ng/mL = None Detected Barbiturates Screen Ql (U) None Detected None Detected [facility] Comment on above: Urine Barbiturates C utoff: < 200 ng/mL = None Detected Benzodiazepines Ql (U) None Detected None Detected [facility] Comment on above: Urine Benzodiazepine Cutoff: < 200 ng/mL = None Detected Cannabinoids Screen Ql (U) None Detected None Detected [facility] Comment on above: Urine Cannabinoids C utoff: < 50 ng/mL = None Detected Cocaine Ql (U) None Detected None Detected [facility] Comment on above: Urine Cocaine Cutoff : < 300 ng/mL = None Detected Methadone Screen Ql (U) None Detected None Detected [facility] Comment on above: Urine Methadone Cuto ff: < 300 ng/mL = None Detected Opiates Screen Ql (U) None Detected None Detected [facility] Comment on above: Urine Opiates Cutoff : < 300 ng/mL = None Detected Oxycodone Ql (U) None Detected None Detected [facility] Comment on above: Urine Oxycodone Cuto ff: < 100 ng/mL = None Detected Screen results shoul d be used for treatment purposes only. Specimen will be kept for 1 week, if the sample is adequate. Confirmation testing can be initiated by calling the lab within 1 week. [facility] ECG 12-LEADon 11-20-2019 Atrial Rate 133 BPM [facility] P [place] 77 degrees [facility] P-R Interval 150 ms [facility] Q-T Interval 290 ms [facility] QRS Duration 98 ms [facility] QTC Calculation (Bezet) 431 ms [facility] R [place] 75 degrees [facility] T [place] 64 degrees [facility] Ventricular Rate [address] [facility] th Sinus tachycardia Inferior infarct , age undetermined Abnormal ECG ECG Cart Interpretation see physician note for interpretation. Confirmed by Brielle Worrell ([id number]) on 11/20/2019 4:06:31 PM [facility] Steffanie Pham 11/20/2019 2:53 PM ECG 12 Lead Date/Time: 11/20/2019 2:52 PM Performed by: Jay Torres MD Authorized by: Jay Torres MD Interpreted by ED attending physician Rhythm: sinus tachycardia BPM: 133 Clinical impression: sinus tachycardia Comments: Patient's EKG has a normal sinus rhythm with a similar axis to that from 10/20/2019. She has had a much faster rate this time at 133 [facility] Magnesium Levelon 11-20-2019 Interpretation and review of laboratory results Normal [facility] Magnesium [Mass/Vol] 1.8 mg/dL 1.6 - 2 .4 mg/dL [facility] Otheron 11-20-2019 Extra Tube Hold for add-ons. [facility] Comment on above: Auto resulted. Interpretation and review of laboratory results Abnormal [facility] Interpretation and review of laboratory results Abnormal [facility] T4, Freeon 11-20-2019 Free T4 [Mass/Vol] 3.9 ng/dL High 0.7 - 1.7 ng/dL [facility] TROPONINon 11-20-2019 Troponin I.cardiac [Mass/Vol] ng/mL <=45 ng/L [facility] Troponin I.cardiac [Mass/Vol] Normal [facility] TSHon 11-20-2019 TSH Qn m[IU]/L Low [facility] URINALYSISon 11-20-2019 Bacteria Auto Ql (U) None Seen None Se en /hpf [facility] Bilirubin Ql (U) Negative Negative [facility] th Clarity Refractometry automated (U) Clear Clear [facility] Color (U) Yellow Colorless, Yellow [facility] Glucose Auto test strip (U) [Mass/Vol] Negative Negative mg/dL [facility] Hemoglobin Auto test strip Ql (U) Negative Negative [facility] Interpretation and review of laboratory results Normal [facility] Ketones (U) [Mass/Vol] Negative Negative mg/dL [facility] Leukocyte esterase Auto test strip Ql (U) Negative Negative [facility] Mucus Auto (Urine sed) [#/Area] Rare None Seen, Rare /lpf [facility] Nitrite Auto test strip Ql (U) Negative Negative [facility] pH (U) 5.0 [pH] [facility] Protein (U) [Mass/Vol] Negative Negative mg/dL [facility] RBC Auto (Urine sed) [#/Area] <1 [facility] Specific gravity (U) [Rel density] 1.014 [facility] Urobilinogen (U) [Mass/Vol] <2.0 <2.0 mg/dL [facility] WBC Auto (Urine sed) [#/Area] <1 [facility] Microscopic examinat ion is performed on all urinalysis samples and only positive findings are reported. The test for blood on the chemical analytic portion of urinalysis may also be positive due to hemoglobinuria and myoglobinuria and if red blood cells are present they are quantified by microscopic examination. [facility] XR Chest 1 Viewon 11-20-2019 EXAMINATION: XR CHES T PA/AP 11/20/2019 1:56 pm HISTORY: ORDERING SYSTEM PROVIDED HISTORY: Chest pain, TECHNOLOGIST PROVIDED HISTORY: Illness/Other Reason for exam: CHEST PAIN Cancer History: u Surgery, RadiationHistory: u Encounter Type: Initial Additional signs and symptoms: NA ORDERING SYSTEM PROVIDED DIAGNOSIS CODES: COMPARISON: AP chest 11/18/2019. FINDINGS: The patient is somewhat rotated. The cardiomediastinal contours are stable and within normal limits. No dense consolidation, effusion, edema, failure or pneumothorax noted. No acute osseous abnormality is identified. [facility] No acute cardiopulmo nary process suspected. [place] Workstation ID: [id number] [facility], Rad In [facility] - 11/20/2019 3:22 PM EDT EXAMINATION: XR CHEST PA/AP 11/20/2019 1:56 pm HISTORY: ORDERING SYSTEM PROVIDED HISTORY: Chest pain, TECHNOLOGIST PROVIDED HISTORY: Illness/Other Reason for exam: CHEST PAIN Cancer History: u Surgery, RadiationHistory: u Encounter Type: Initial Additional signs and symptoms: NA ORDERING SYSTEM PROVIDED DIAGNOSIS CODES: COMPARISON: AP chest 11/18/2019. FINDINGS: The patient is somewhat rotated. The cardiomediastinal contours are stable and within normal limits. No dense consolidation, effusion, edema, failure or pneumothorax noted. No acute osseous abnormality is identified. IMPRESSION: No acute cardiopulmonary process suspected. [place] Workstation ID: [id number] [facility] Otheron 11-19-2019 Interpretation and review of laboratory results Abnormal [facility] T4, Freeon 11-19-2019 Free T4 [Mass/Vol] 3.7 ng/dL High 0.7 - 1.7 ng/dL [facility] TSHon 11-19-2019 TSH Qn m[IU]/L Low [facility] XR Chest 1 Viewon 11-18-2019 No acute cardiopulmo nary process. Workstation ID: [id number] [facility], Rad In [facility] - 11/18/2019 4:19 PM EDT EXAMINATION: XR CHEST PA/AP HISTORY: ORDERING SYSTEM PROVIDED HISTORY: shortness of breath, TECHNOLOGIST PROVIDED HISTORY: Illness/Other Reason for exam: shortness of breath Cancer History: u Surgery, RadiationHistory: u Encounter Type: Initial Additional signs and symptoms: . ORDERING SYSTEM PROVIDED DIAGNOSIS CODES: F25.0 Schizoaffective disorder, bipolar type (HCC) COMPARISON: 11/06/2019 FINDINGS: Cardiomediastinal contours within normal limits. No focal consolidative process, pulmonary edema, pleural effusion, or pneumothorax. Osseous structures are intact. IMPRESSION: No acute cardiopulmonary process. Workstation ID: [id number] [facility] EXAMINATION: XR CHES T PA/AP HISTORY: ORDERING SYSTEM PROVIDED HISTORY: shortness of breath, TECHNOLOGIST PROVIDED HISTORY: Illness/Other Reason for exam: shortness of breath Cancer History: u Surgery, RadiationHistory: u Encounter Type: Initial Additional signs and symptoms: . ORDERING SYSTEM PROVIDED DIAGNOSIS CODES: F25.0 Schizoaffective disorder, bipolar type ([facility]) COMPARISON: 11/06/2019 FINDINGS: Cardiomediastinal contours within normal limits. No focal consolidative process, pulmonary edema, pleural effusion, or pneumothorax. Osseous structures are intact. [facility] Alcohol, Medicalon 0 Ethanol [Mass/Vol] mg/dL <10.00 mg/dL [facility] Comment on above: Alcohol cutoff: <10. 00 mg/dL = None Detected Interpretation and review of laboratory results Normal [facility] COVID-19, Molecularon 2019 Interpretation and review of laboratory results Normal [facility] SARS-CoV-2 Not Detected Not Detected [facility] Comment on above: This test was perfor med under the FDA's Emergency Use Authorization (EUA). Testing was performed using the [employer] ID NOW COVID-19 assay on the ID NOW platform. This test has not been approved for use in asymptomatic patients and its performance in this patient population has not been evaluated. Negative results do not rule out the presence of SARS-CoV-2/COVID-19. Fact sheets for the EUA can be found at the following links: For Healthcare Providers: https://www.fda.gov/media/542751/download For Patients: https://www.fda.gov/media/458789/download DRUGS OF ABUSE SCREEN, URINE on 11-12-2019 Amphetamines Ql (U) None Detected None Detected [facility] Comment on above: Urine Amphetamine Cu toff: < 1000 ng/mL = None Detected Barbiturates Screen Ql (U) None Detected None Detected [facility] Comment on above: Urine Barbiturates C utoff: < 200 ng/mL = None Detected Benzodiazepines Ql (U) None Detected None Detected [facility] Comment on above: Urine Benzodiazepine Cutoff: < 200 ng/mL = None Detected Cannabinoids Screen Ql (U) Positive Abnormal None Detected [facility] Comment on above: Urine Cannabinoids C utoff: < 50 ng/mL = None Detected Cocaine Ql (U) None Detected None Detected [facility] Comment on above: Urine Cocaine Cutoff : < 300 ng/mL = None Detected Interpretation and review of laboratory results Abnormal [facility] Methadone Screen Ql (U) None Detected None Detected [facility] Comment on above: Urine Methadone Cuto ff: < 300 ng/mL = None Detected Opiates Screen Ql (U) None Detected None Detected [facility] Comment on above: Urine Opiates Cutoff : < 300 ng/mL = None Detected Oxycodone Ql (U) None Detected None Detected [facility] Comment on above: Urine Oxycodone Cuto ff: < 100 ng/mL = None Detected Screen results shoul d be used for treatment purposes only. Specimen will be kept for 1 week, if the sample is adequate. Confirmation testing can be initiated by calling the lab within 1 week. [facility] Otheron 11-12-2019 Extra Tube Hold for add-ons. [facility] Comment on above: Auto resulted. T4, Freeon 11-12-2019 Free T4 [Mass/Vol] 6.9 ng/dL High 0.7 - 1.7 ng/dL [facility] Interpretation and review of laboratory results Abnormal [facility] TSH with Reflex Free T4on Interpretation and review of laboratory results Abnormal [facility] TSH Qn m[IU]/L Low [facility] XR Chest 1 Viewon 11-06-2019 - Minimal bilateral peribronchial thickening and mild interstitial accentuation in the perihilar areas. The differential includes bronchitis. NO pneumonia and/or significant atelectasis. Workstation ID: [id number] [facility] XR CHEST, 1 VIEW ([id number]) CLINICAL HISTORY: ORDERING SYSTEM PROVIDED dehydration., TECHNOLOGIST PROVIDED HISTORY: Illness/Other Reason for exam: dehydration Cancer History: u Surgery, RadiationHistory: u Encounter Type: Initial Additional signs and symptoms: . ORDERING SYSTEM PROVIDED DIAGNOSIS CODES: COMPARISON: No relevant prior studies available. FINDINGS: LUNGS: The lungs demonstrate no consolidations. Minimal bilateral peribronchial thickening and mild interstitial accentuation in the perihilar areas. HEART: The heart is normal in size and position. MEDIASTINUM: No gross abnormality. BONES/JOINTS: NO definite fracture or dislocation. [facility] Interface, Rad In Fu ji Speechq - 11/06/2019 5:19 AM EDT XR CHEST, 1 VIEW ([id number]) CLINICAL HISTORY: ORDERING SYSTEM PROVIDED dehydration., TECHNOLOGIST PROVIDED HISTORY: Illness/Other Reason for exam: dehydration Cancer History: u Surgery, RadiationHistory: u Encounter Type: Initial Additional signs and symptoms: . ORDERING SYSTEM PROVIDED DIAGNOSIS CODES: COMPARISON: No relevant prior studies available. FINDINGS: LUNGS: The lungs demonstrate no consolidations. Minimal bilateral peribronchial thickening and mild interstitial accentuation in the perihilar areas. HEART: The heart is normal in size and position. MEDIASTINUM: No gross abnormality. BONES/JOINTS: NO definite fracture or dislocation. IMPRESSION: - Minimal bilateral peribronchial thickening and mild interstitial accentuation in the perihilar areas. The differential includes bronchitis. NO pneumonia and/or significant atelectasis. Workstation ID: [id number] [facility] T4, [facility] 10-30-2019 Free T4 [Mass/Vol] 2.6 ng/dL High 0.7 - 1.7 ng/dL [facility] Interpretation and review of laboratory results Abnormal [facility] T4, [facility] 10-27-2019 Free T4 [Mass/Vol] 2.9 ng/dL High 0.7 - 1.7 ng/dL [facility] Interpretation and review of laboratory results Abnormal [facility] T4, [facility] 10-24-2019 Free T4 [Mass/Vol] 5.1 ng/dL High 0.7 - 1.7 ng/dL [facility] Interpretation and review of laboratory results Abnormal [facility] Thyroid Stimulating Immunogl obulinon 10-24-2019 Interpretation and review of laboratory results Abnormal [facility] Thyroid Stimulating Immumoglobulin 5 High <=1.3 TSI index [facility] Comment on above: Test Performed by: [place] [id number] Publication Designer: Zia Bustamante M.D. Ph.D.; CLIA# [id number] ECG 12-LEADon 10-21-2019 Atrial Rate 100 BPM [facility] P [place] 45 degrees [facility] P-R Interval 208 ms [facility] Q-T Interval 356 ms [facility] QRS Duration 94 ms [facility] QTC Calculation (Bezet) 459 ms [facility] R [place] 80 degrees [facility] T [place] 54 degrees [facility] Ventricular Rate 100 BPM [facility] Normal sinus rhythm with first degree AV block ST elevation, consider early repolarization, pericarditis, or injury Abnormal ECG Confirmed by Argelia Flynn MD ([id number]) on 10/21/2019 9:17:14 AM [facility] THYROID PEROXIDASE ANTIBODY (TPO)on 10-21-2019 Interpretation and review of laboratory results Abnormal [facility] TPO Ab Qn 278.1 [IU]/mL High [facility] Comment on above: Assay performed by [employer] DXI Immunoassay. Alcohol, Medicalon 0 Ethanol [Mass/Vol] mg/dL <10.00 mg/dL [facility] Comment on above: Alcohol cutoff: <10. 00 mg/dL = None Detected Interpretation and review of laboratory results Normal [facility] CBC WITH AUTO DIFFERENTIALon 10-20-2019 Erythrocyte distribution width (RBC) [Entitic vol] 13.2 % 11.6 - 14.8 % [facility] Hematocrit (Bld) [Volume fraction] 38.1 % Low 41 - 53 % [facility] Hemoglobin (Bld) [Mass/Vol] 12.2 g/dL Low 13.5 - 17.5 g/dL [facility] MCH (RBC) [Entitic mass] 27.5 pg 26 - 34 pg [facility] MCHC (RBC) [Mass/Vol] 32.0 g/dL 31 - 37 g/dL [facility] MCV (RBC) [Entitic vol] 85.8 fL 80 - 100 fL [facility] Nucleated RBC (Bld) [#/Vol] 0.02 10*3/uL High [facility] Nucleated RBC/100 WBC (Bld) [Ratio] 0.2 % [facility] Platelet mean volume (Bld) [Entitic vol] 10.0 fL 9.4 - 12.4 fL [facility] Platelets (Bld) [#/Vol] 231 10*3/uL [facility] RBC (Bld) [#/Vol] 4.44 10*6/uL Low [facility] WBC (Bld) [#/Vol] 8.81 10*3/uL [facility] Comprehensive metabolic pane talat 10-20-2019 Albumin [Mass/Vol] 3.5 g/dL 3.2 - 5.2 g/dL [facility] ALP [Catalytic activity/Vol] 195 U/L High 40 - 140 U/L [facility] ALT [Catalytic activity/Vol] 56 U/L 14 - 65 U/L [facility] Anion gap [Moles/Vol] 11 mmol/L 10 - 2 0 mmol/L [facility] AST [Catalytic activity/Vol] 29 U/L 0 - 45 U/L [facility] Bilirubin [Mass/Vol] 0.5 mg/dL 0 - 1.3 mg/dL [facility] Calcium [Mass/Vol] 8.8 mg/dL 8.4 - 10. 2 mg/dL [facility] Chloride [Moles/Vol] 111 mmol/L High 98 - 10 8 mmol/L [facility] Creatinine [Mass/Vol] 0.59 mg/dL 0.50 - 1.30 [facility] GFR/1.73 sq M predicted among non-blacks MDRD (S/P/Bld) [Vol rate/Area] The eGFR should be used for monitoring renal function only and not for medication dosing. [facility] GFR/1.73 sq M.predicted CKD-EPI (S/P/Bld) [Vol rate/Area] 145 >=60 mL/min/1.73 m2 [facility] Glucose [Mass/Vol] 99 mg/dL 65 - 99 mg/dL [facility] HCO3 [Moles/Vol] 23 mmol/L 21 - 32 mmol/L [facility] Potassium [Moles/Vol] 4.1 mmol/L 3.5 - 5.1 mmol/L [facility] Protein [Mass/Vol] 6.4 g/dL 6 - 8 g/dL [facility] Sodium [Moles/Vol] 141 mmol/L 135 - 145 mmol/L [facility] Urea nitrogen [Mass/Vol] 23 mg/dL 8 - 25 mg/dL [facility] Urea nitrogen/Creatinine [Mass ratio] 39.0 mg/mg High [facility] DRUGS OF ABUSE SCREEN, URINE on 10-20-2019 Amphetamines Ql (U) Positive Abnormal None Detected [facility] Comment on above: Urine Amphetamine Cu toff: < 1000 ng/mL = None Detected Barbiturates Screen Ql (U) None Detected None Detected [facility] Comment on above: Urine Barbiturates C utoff: < 200 ng/mL = None Detected Benzodiazepines Ql (U) None Detected None Detected [facility] Comment on above: Urine Benzodiazepine Cutoff: < 200 ng/mL = None Detected Cannabinoids Screen Ql (U) None Detected None Detected [facility] Comment on above: Urine Cannabinoids C utoff: < 50 ng/mL = None Detected Cocaine Ql (U) None Detected None Detected [facility] Comment on above: Urine Cocaine Cutoff : < 300 ng/mL = None Detected Interpretation and review of laboratory results Abnormal [facility] Methadone Screen Ql (U) None Detected None Detected [facility] Comment on above: Urine Methadone Cuto ff: < 300 ng/mL = None Detected Opiates Screen Ql (U) None Detected None Detected [facility] Comment on above: Urine Opiates Cutoff : < 300 ng/mL = None Detected Oxycodone Ql (U) None Detected None Detected [facility] Comment on above: Urine Oxycodone Cuto ff: < 100 ng/mL = None Detected Screen results shoul d be used for treatment purposes only. Specimen will be kept for 1 week, if the sample is adequate. Confirmation testing can be initiated by calling the lab within 1 week. [facility] Ferritinon 10-20-2019 Ferritin [Mass/Vol] 193 ng/mL 30 - 400 ng/mL [facility] Folateon 10-20-2019 Folate [Mass/Vol] 15.8 ng/mL 3.1 - 17.5 ng/mL [facility] Comment on above: Deficient <2.2 Borderline 2.2 - 3.0 Excessive >17.5 Ironon 10-20-2019 Iron [Mass/Vol] 95 ug/dL [facility] Lipid Panelon 10-20-2019 Cholesterol [Mass/Vol] 105 mg/dL 100 - 199 mg/dL [facility] Comment on above: National Cholesterol Education Program Guidelines: Cholesterol Desirable: <200 mg/dL Borderline High: 200-239 mg/dL High: greater than or equal to 240 mg/dL Cholesterol in HDL [Mass/Vol] 33 mg/dL Low 40 - 59 [facility] Comment on above: National Cholesterol Education Program Guidelines: HDL Cholesterol Low: <40 mg/dL Near Optimal: 40-59 mg/dL High: greater than or equal to 60 mg/dL Cholesterol in LDL [Mass/Vol] 52 mg/dL 10 - 130 mg/dL [facility] Comment on above: National Cholesterol Education Program Guidelines: LDL Cholesterol Optimal: <100 mg/dL Near Optimal/above Optimal: 100-129 mg/dL Borderline High: 130-159 mg/dL High: 160-189 mg/dL Very High: greater than or equal to 190 mg/dL Cholesterol non HDL [Mass/Vol] 72 mg/dL [facility] Comment on above: National Cholesterol Education Program Guidelines: NON HDL Cholesterol Desirable: <130 mg/dL Borderline High: 130-159 mg/dL High: 160-189 mg/dL Very High: > or = 190 mg/dL Cholesterol.total/Cho lesterol in HDL [Mass ratio] 3.2 {ratio} ratio [facility] Comment on above: Males Cholesterol/HD L Ratio: Average risk: 5.0 1/2 average risk: 3.4 2 x average risk: 9.6 Triglyceride [Mass/Vol] 101 mg/dL 30 - 150 mg/dL [facility] Comment on above: National Cholesterol Education Program Guidelines: Triglyceride Normal: <150 mg/dL Borderline High: 150-199 mg/dL High: 200-499 mg/dL Very High: greater than or equal to 500 mg/dL MORPHOLOGYon 10-20-2019 RBC morphology finding Nom (Bld) Normal [facility] Comment on above: RBC Indices confirme d with manual peripheral smear review. Manual Differentialon 2019 Basophils (Bld) [#/Vol] 0.09 10*3/uL [facility] Basophils/100 WBC (Bld) 1.0 % [facility] Eosinophils (Bld) [#/Vol] 0.09 10*3/uL [facility] Eosinophils/100 WBC (Bld) 1.0 % [facility] Lymphocytes (Bld) [#/Vol] 5.20 10*3/uL High [facility] Lymphocytes/100 WBC (Bld) 59.0 % [facility] Monocytes (Bld) [#/Vol] 0.62 10*3/uL [facility] Monocytes/100 WBC (Bld) 7.0 % [facility] Neutrophils (Bld) [#/Vol] 2.82 10*3/uL [facility] Neutrophils/100 WBC (Bld) 32.0 % [facility] Otheron 10-20-2019 Interpretation and review of laboratory results Normal [facility] Interpretation and review of laboratory results Normal [facility] Interpretation and review of laboratory results Abnormal [facility] Interpretation and review of laboratory results Abnormal [facility] T3 [Mass/Vol] 24.5 pg/mL High 2 - 4.4 pg/mL [facility] Interpretation and review of laboratory results Abnormal [facility] T4, Freeon 10-20-2019 Free T4 [Mass/Vol] ng/dL High 0.7 - 1.7 ng/dL [facility] Interpretation and review of laboratory results Abnormal [facility] TRANSFERRINon 10-20-2019 Transferrin [Mass/Vol] 215.0 mg/dL 212 - 360 mg/dL [facility] TSH with Reflex Free T4on TSH Qn m[IU]/L Low [facility] Vitamin B12on 10-20-2019 Cobalamin (Vitamin B12) [Mass/Vol] 866 pg/mL 193 - 986 pg/mL [facility] COVID-19, Molecularon 2019 Interpretation and review of laboratory results Normal [facility] SARS-CoV-2 Not Detected Not Detected [facility] Comment on above: This test was perfor med under the FDA's Emergency Use Authorization (EUA). Testing was performed using the [employer] ID NOW COVID-19 assay on the ID NOW platform. This test has not been approved for use in asymptomatic patients and its performance in this patient population has not been evaluated. Negative results do not rule out the presence of SARS-CoV-2/COVID-19. Fact sheets for the EUA can be found at the following links: For Healthcare Providers: https://www.fda.gov/media/316327/download For Patients: https://www.fda.gov/media/261543/download Otheron 10-19-2019 Extra Tube Hold for add-ons. [facility] Comment on above: Auto resulted. Cult,Bloodon 06-09-2019 Cult,Blood Specimen Description .BLOOD Special Requests LT FA 4ML Culture NO GROWTH 6 DAYS Report Status FINAL 06/09/2019 [facility] Comment on above: Performed By: #### W P #### [facility] [address] [place] [id number] Publication Designer: Gary Servin MD Cult,Respiratoryon 0 Cult,Respiratory Specimen Description .EXPECTORATED SPUTUM Special Requests NOT REPORTED Direct Exam < 10 EPITHELIAL CELLS/LPF <10 NEUTROPHILS/LPF MIXED BACTERIAL MORPHOTYPES SEEN ON GRAM STAIN. Culture NORMAL RESPIRATORY SALOME HEAVY GROWTH Report Status FINAL 06/05/2019 [facility] Comment on above: Performed By: #### W P #### [facility] [address] [place] [address] [id number] Publication Designer: Gary Servin MD Basic Metab w/rfx MGon 06-04 (cont.) [facility] Comment on above: Result Comment: Aver age GFR for 20-29 years old: 116 mL/min/1.73sq m Chronic Kidney Disease: <60 mL/min/1.73sq m Kidney failure: <15 mL/min/1.73sq m eGFR calculated using average adult body mass. Additional eGFR calculator available at: http://www.[employer]/multiple_crcl_2012.htm Performed By: #### T REP HIVCMB #### [facility] [address] [place] [address] Publication Designer: Gary Servin MD Anion gap [Moles/Vol] 12 mmol/L Normal 9-17 [facility] Comment on above: Performed By: #### T REP, HIVCMB #### [facility] [address] [place] [id number] Publication Designer: Gary Servin MD Calcium [Mass/Vol] 8.0 mg/dL Low 8.6-10.4 [facility] Comment on above: Performed By: #### T REP, HIVCMB #### [facility] [address] [place] [phone] Publication Designer: Gary Servin MD Chloride [Moles/Vol] 106 mmol/L Normal 98-107 [facility] Comment on above: Performed By: #### T REP, HIVCMB #### [facility] [address] [place] [phone] Publication Designer: Gary Servin MD CO2 [Moles/Vol] 22 mmol/L Normal 20-31 [facility] Comment on above: Performed By: #### T REP, HIVCMB #### [facility] [address] [place] [id number] Publication Designer: Gary Servin MD Creatinine [Mass/Vol] 0.40 mg/dL Low 0.70-1.20 [facility] Comment on above: Performed By: #### T REP, HIVCMB #### [facility] [address] [place] [id number] Publication Designer: Gary Servin MD GFR, Amer >60 Normal >60 [facility] Comment on above: Performed By: #### T REP, HIVCMB #### [facility] [address] [place] [phone] Publication Designer: Gary Servin MD GFR,non Amer >60 Normal >60 [facility] Comment on above: Performed By: #### T REP, HIVCMB #### [facility] [address] [place] [phone] Publication Designer: Gary Servin MD Glucose [Mass/Vol] 105 mg/dL High 70-99 [facility] Comment on above: Performed By: #### T REP, HIVCMB #### [facility] [address] [place] [phone] Publication Designer: Gary Servin MD Potassium [Moles/Vol] 4.0 mmol/L Normal 3.7-5.3 [facility] Comment on above: Performed By: #### T REP, HIVCMB #### [facility] [address] [place] [phone] Publication Designer: Gary Servin MD Sodium [Moles/Vol] 140 mmol/L Normal 135-144 [facility] Comment on above: Performed By: #### T REP, HIVCMB #### [address] [address] Publication Designer: Gary Servin MD Urea nitrogen [Mass/Vol] 6 mg/dL Normal 6-20 [facility] Comment on above: Performed By: #### T REP, HIVCMB #### [facility] [address] [place] [phone] Publication Designer: Gary Servin MD BUN/CRE Ratio NOT REPORTED Normal 9-20 [facility] Comment on above: Performed By: #### T REP, HIVCMB #### [facility] [address] [place] [phone] Publication Designer: Gary Servin MD Staging: NOT REPORTED Normal [facility] Comment on above: Performed By: #### T REP, HIVCMB #### [facility] [address] [place] [phone] Publication Designer: Gary Servin MD Basic Metabolic Panel w/ Ref freya to MGon 06-04-2019 Anion gap [Moles/Vol] 12 mmol/L 9 - 17 mmol/L [place] Bun/Cre Ratio NOT REPORTED [place], [place] Calcium [Mass/Vol] 8.0 mg/dL Low 8.6 - 10. 4 mg/dL [place] Chloride [Moles/Vol] 106 mmol/L 98 - 10 7 mmol/L [place] CO2 [Moles/Vol] 22 mmol/L 20 - 31 mmol/L [place] Creatinine [Mass/Vol] 0.4 mg/dL Low 0.7 - 1.2 mg/dL [place] GFR >60 >60 mL/min [place] GFR Non- >60 >60 mL/min [place] GFR/1.73 sq M predicted among non-blacks MDRD (S/P/Bld) [Vol rate/Area] NOT REPORTED [place] GFR/1.73 sq M predicted among non-blacks MDRD (S/P/Bld) [Vol rate/Area] [place] Comment on above: Average GFR for 20-2 9 years old: 116 mL/min/1.73sq m Chronic Kidney Disease: <60 mL/min/1.73sq m Kidney failure: <15 mL/min/1.73sq m eGFR calculated using average adult body mass. Additional eGFR calculator available at: http://www.[employer]/multiple_crcl_2012.htm Glucose [Mass/Vol] 105 mg/dL High 70 - 99 mg/dL [place] Interpretation and review of laboratory results Abnormal [place] Potassium [Moles/Vol] 4.0 mmol/L 3.7 - 5.3 mmol/L [place] Sodium [Moles/Vol] 140 mmol/L 135 - 144 mmol/L [place] Urea nitrogen [Mass/Vol] 6 mg/dL 6 - 20 mg/dL [place] C DIFF TOXIN/ANTIGENon 06-04 C DIFF AG + TOXIN Negative NEGATIVE [facility] Comment on above: No C. difficile anti gen and Toxin Detected. Specimen Description .FECES Mike [facility] C diff Ag + Toxinon 06-04-19 20 C diff Ag + Toxin Negative Normal NEG [facility] Comment on above: Result Comment: No C . difficile antigen and Toxin Detected. Performed By: #### W P #### [address] [address] Publication Designer: Gary Servin MD CBCon 06-04-2019 Erythrocyte distribution width (RBC) [Ratio] 12.7 % Normal 11.8-14.4 [facility] Comment on above: Performed By: #### T REP HIVCMB #### [facility] [address] [place] [phone] Publication Designer: Gary Servin MD Hematocrit (Bld) [Volume fraction] 34.6 % Low 40.7-50.3 [facility] Comment on above: Performed By: #### T REP HIVCMB #### [facility] [address] [place] [phone] Publication Designer: Gary Servin MD Hemoglobin (Bld) [Mass/Vol] 11.4 g/dL Low 13.0-17.0 [facility] Comment on above: Performed By: #### T REP HIVCMB #### [facility] [address] [place] [phone] Publication Designer: Gary Servin MD MCH (RBC) [Entitic mass] 28.5 pg Normal 25.2-33.5 [facility] Comment on above: Performed By: #### T REP HIVCMB #### [facility] [address] [place] [phone] Publication Designer: Gary Servin MD MCHC (RBC) [Mass/Vol] 32.9 g/dL Normal 28.4-34.8 [facility] Comment on above: Performed By: #### T REP, HIVCMB #### [facility] [address] [place] [phone] Publication Designer: Gary Servin MD MCV (RBC) [Entitic vol] 86.5 fL Normal 82.6-102.9 [facility] Comment on above: Performed By: #### T REP, HIVCMB #### [facility] [address] [place] [phone] Publication Designer: Gary Servin MD NRBC Automated 0.0 per 100 WBC Normal 0.0 [facility] Comment on above: Performed By: #### T REP, HIVCMB #### [facility] [address] [place] [phone] Publication Designer: Gary Servin MD Platelet mean volume (Bld) [Entitic vol] 10.6 fL Normal 8.1-13.5 [facility] Comment on above: Performed By: #### T REP, HIVCMB #### [address] [address] Publication Designer: Gary Servin MD Platelets (Bld) [#/Vol] 148 10*3/uL Normal 138-453 [facility] Comment on above: Performed By: #### T REP, HIVCMB #### [address] [address] Publication Designer: Gary Servin MD RBC (Bld) [#/Vol] 4.00 10*6/uL Low 4.21-5.77 [facility] Comment on above: Performed By: #### T REP, HIVCMB #### [address] [address] Publication Designer: Gary Servin MD WBC (Bld) [#/Vol] 7.5 10*3/uL Normal 4.5-13.5 [facility] Comment on above: Performed By: #### T REP, HIVCMB #### [facility] [place], [place] [phone] Publication Designer: Gary Servin MD Erythrocyte distribution width (RBC) [Ratio] 12.7 % 11.8 - 14.4 % [place] Hematocrit (Bld) [Volume fraction] 34.6 % Low 40.7 - 50.3 % [place] Hemoglobin (Bld) [Mass/Vol] 11.4 g/dL Low 13 - 17 g/dL [place] Interpretation and review of laboratory results Abnormal [place] MCH (RBC) [Entitic mass] 28.5 pg 25.2 - 33.5 pg [place] MCHC (RBC) [Mass/Vol] 32.9 g/dL 28.4 - 34.8 g/dL [place] MCV (RBC) [Entitic vol] 86.5 fL 82.6 - 102.9 fL [place] Platelet mean volume (Bld) [Entitic vol] 10.6 fL 8.1 - 13.5 fL [place] Platelets (Bld) [#/Vol] 148 10*3/uL [place] RBC (Bld) [#/Vol] 4.00 10*6/uL Low 4.21 - 5.7 7 m/uL [place] WBC (Bld) [#/Vol] 7.5 10*3/uL [place] WBC (Bld) [#/Vol] 0.0 10*3/uL 0.0 per 10 0 WBC [place] Cult,Urineon 06-04-2019 Cult,Urine Specimen Description .URINE Special Requests NOT REPORTED Culture NO GROWTH Report Status FINAL 06/04/2019 Normal [facility] Comment on above: Performed By: #### W P #### [facility] [address] [place] [address] Publication Designer: Gary Servin MD Urine Cultureon 06-04-2019 Culture NO GROWTH [place] Special Requests NOT REPORTED [place] Specimen Description .URINE [place] APTTon 06-03-2019 aPTT Coag (Bld) [Time] 28.9 s Normal 20.5-30.5 [facility] Comment on above: Performed By: #### T REP, HIVCMB #### [facility] [address] [phone] Publication Designer: Gary Servin MD aPTT Coag (Bld) [Time] 28.9 s [place] Basic Metabolic Panelon 05-17 Anion gap [Moles/Vol] 10 mmol/L 9 - 17 mmol/L [place] Bun/Cre Ratio NOT REPORTED [place] Calcium [Mass/Vol] 8.1 mg/dL Low 8.6 - 10. 4 mg/dL [place] Chloride [Moles/Vol] 99 mmol/L 98 - 10 7 mmol/L [place] CO2 [Moles/Vol] 22 mmol/L 20 - 31 mmol/L [place] Creatinine [Mass/Vol] 0.62 mg/dL Low 0.7 - 1.2 mg/dL [place] GFR >60 >60 mL/min [place] GFR Non- >60 >60 mL/min [place] GFR/1.73 sq M predicted among non-blacks MDRD (S/P/Bld) [Vol rate/Area] [place] Comment on above: Average GFR for 20-2 9 years old: 116 mL/min/1.73sq m Chronic Kidney Disease: <60 mL/min/1.73sq m Kidney failure: <15 mL/min/1.73sq m eGFR calculated using average adult body mass. Additional eGFR calculator available at: http://www.[employer]/multiple_crcl_2012.htm GFR/1.73 sq M predicted among non-blacks MDRD (S/P/Bld) [Vol rate/Area] NOT REPORTED [place] Glucose [Mass/Vol] 141 mg/dL High 70 - 99 mg/dL [place] Interpretation and review of laboratory results Abnormal [place] Potassium [Moles/Vol] 3.6 mmol/L Low 3.7 - 5.3 mmol/L [place] Sodium [Moles/Vol] 131 mmol/L Low 135 - 144 mmol/L [place] Urea nitrogen [Mass/Vol] 16 mg/dL 6 - 20 mg/dL [place] Basic Metabolic Profon 06-03 (cont.) Normal [facility] Comment on above: Result Comment: Aver age GFR for 20-29 years old: 116 mL/min/1.73sq m Chronic Kidney Disease: <60 mL/min/1.73sq m Kidney failure: <15 mL/min/1.73sq m eGFR calculated using average adult body mass. Additional eGFR calculator available at: http://www.[employer]/multiple_crcl_2012.htm Performed By: #### T REP HIVCMB #### [facility] [employer] [address] [place] [phone] Publication Designer: Gary Servin MD Anion gap [Moles/Vol] 10 mmol/L Normal 9-17 [facility] Comment on above: Performed By: #### T REP HIVCMB #### [facility] [address] [place] [phone] Publication Designer: Gary Servin MD Calcium [Mass/Vol] 8.1 mg/dL Low 8.6-10.4 [facility] Comment on above: Performed By: #### T REP HIVCMB #### [facility] [address] [place] [address] 14125 Publication Designer: Gary Servin MD Chloride [Moles/Vol] 99 mmol/L Normal 98-107 [facility] Comment on above: Performed By: #### T REP HIVCMB #### [facility] [address] [place] [address] [phone] Publication Designer: Gary Servin MD CO2 [Moles/Vol] 22 mmol/L Normal 20-31 [facility] Comment on above: Performed By: #### T REP, HIVCMB #### [facility] [address] [place] [address] 33361 Publication Designer: Gary Servin MD Creatinine [Mass/Vol] 0.62 mg/dL Low 0.70-1.20 [facility] Comment on above: Performed By: #### T REP, HIVCMB #### [facility] [address] [place] [address] 42863 Publication Designer: Gary Servin MD GFR, Amer >60 Normal >60 [facility] Comment on above: Performed By: #### T REP, HIVCMB #### [facility] [address] [place] [address] 85669 Publication Designer: Gary Servin MD GFR,non Amer >60 Normal >60 [facility] Comment on above: Performed By: #### T REP, HIVCMB #### [facility] [address] [place] [address] 63130 Publication Designer: Gary Servin MD Glucose [Mass/Vol] 141 mg/dL High 70-99 [facility] Comment on above: Performed By: #### T REP, HIVCMB #### [facility] [address] [place] [address] 76186 Publication Designer: Gary Servin MD Potassium [Moles/Vol] 3.6 mmol/L Low 3.7-5.3 [facility] Comment on above: Performed By: #### T REP, HIVCMB #### [facility] [address] [place] [address] 92639 Publication Designer: Gary Servin MD Sodium [Moles/Vol] 131 mmol/L Low 135-144 [facility] Comment on above: Performed By: #### T REP, HIVCMB #### [facility] [address] [place] [address] Publication Designer: Gary Servin MD Urea nitrogen [Mass/Vol] 16 mg/dL Normal 6-20 [facility] Comment on above: Performed By: #### T REP, HIVCMB #### [facility] [address] [place] [address] Publication Designer: Gary Servin MD BUN/CRE Ratio NOT REPORTED Normal -20 [facility] Comment on above: Performed By: #### T REP, HIVCMB #### [facility] [address] [place] [address] Publication Designer: Gary Servin MD Staging: NOT REPORTED Normal [facility] Comment on above: Performed By: #### T REP, HIVCMB #### [facility] [address] [place] [address] 33041 Publication Designer: Gary Servin MD C diff Ag + Toxinon 06-03-19 20 Specimen Description .FECES Normal [facility] Comment on above: Performed By: #### W P #### [facility] [address] [place] [address] 58456 Publication Designer: Gary Servin MD CBC Auto Differentialon 05-17 Basophils (Bld) [#/Vol] 10*3/uL [place] Basophils/100 WBC (Bld) 0 % 0 - 2 % [place] Differential Type NOT REPORTED [place] Eosinophils (Bld) [#/Vol] 10*3/uL [place] Eosinophils/100 WBC (Bld) 0 % Low 1 - 4 % [place] Erythrocyte distribution width (RBC) [Ratio] 12.3 % 11.8 - 14.4 % [place] Hematocrit (Bld) [Volume fraction] 34.1 % Low 40.7 - 50.3 % [place] Hemoglobin (Bld) [Mass/Vol] 11.4 g/dL Low 13 - 17 g/dL [place] Immature granulocytes (Bld) [#/Vol] 10*3/uL [place] Immature granulocytes (Bld) [#/Vol] 0 % 0 [place] Interpretation and review of laboratory results Abnormal [place] Lymphocytes (Bld) [#/Vol] 1.57 10*3/uL [place] Lymphocytes/100 WBC (Bld) 25 % 25 - 45 % [place] MCH (RBC) [Entitic mass] 28.4 pg 25.2 - 33.5 pg [place] MCHC (RBC) [Mass/Vol] 33.4 g/dL 28.4 - 34.8 g/dL [place] MCV (RBC) [Entitic vol] 85.0 fL 82.6 - 102.9 fL [place] Monocytes (Bld) [#/Vol] 0.87 10*3/uL [place] Monocytes/100 WBC (Bld) 14 % High 2 - 8 % [place] Platelet mean volume (Bld) [Entitic vol] 9.9 fL 8.1 - 13.5 fL [place] Platelets (Bld) [#/Vol] NOT REPORTED [place] Platelets (Bld) [#/Vol] 149 10*3/uL [place] RBC (Bld) [#/Vol] 4.01 10*6/uL Low 4.21 - 5.7 7 m/uL [place] RBC morphology finding Nom (Bld) NOT REPORTED [place] Segmented neutrophils/100 WBC (Bld) 61 % 34 - 64 % [place] Segs Absolute 3.83 [place] WBC (Bld) [#/Vol] 6.3 10*3/uL [place] WBC (Bld) [#/Vol] 0.0 10*3/uL 0.0 per 10 0 WBC [place] WBC Morphology NOT REPORTED [place] CBC with Diffon 06-03-2019 Abs. Basophil <0.03 Normal 0.00-0.20 [facility] Comment on above: Performed By: #### L ACDS, CDP, PT, PTT, BMP #### [address] [address] Publication Designer: Gary Servin MD Abs.Imm.Granulocyte <0.03 Normal 0.00-0.30 [facility] Comment on above: Performed By: #### L ACDS, CDP, PT, PTT, BMP #### [address] [address] Publication Designer: Gary Servin MD Abs.Neutrophil (Seg) 3.83 k/uL Normal 1.50-8.10 [facility] Comment on above: Performed By: #### L ACDS, CDP, PT, PTT, BMP #### [address] [address] Publication Designer: Gary Servin MD Basophils/100 WBC (Bld) 0 % Normal 0-2 [facility] Comment on above: Performed By: #### L ACDS, CDP, PT, PTT, BMP #### [facility] [address] [place] [address] 73901 Publication Designer: Gary Servin MD Eosinophils (Bld) [#/Vol] 10*3/uL Normal 0.00-0.44 [facility] Comment on above: Performed By: #### L ACDS, CDP, PT, PTT, BMP #### [facility] [address] [place] [address] 49323 Publication Designer: Gary Servin MD Eosinophils/100 WBC (Bld) 0 % Low 1-4 [facility] Comment on above: Performed By: #### L ACDS, CDP, PT, PTT, BMP #### [facility] [address] [place] [address] 75648 Publication Designer: Gary Servin MD Erythrocyte distribution width (RBC) [Ratio] 12.3 % Normal 11.8-14.4 [facility] Comment on above: Performed By: #### L ACDS, CDP, PT, PTT, BMP #### [facility] [address] [place] [address] 20301 Publication Designer: Gary Servin MD Hematocrit (Bld) [Volume fraction] 34.1 % Low 40.7-50.3 [facility] Comment on above: Performed By: #### L ACDS, CDP, PT, PTT, BMP #### [facility] [address] [place] [address] 85061 Publication Designer: Gary Servin MD Hemoglobin (Bld) [Mass/Vol] 11.4 g/dL Low 13.0-17.0 [facility] Comment on above: Performed By: #### L ACDS, CDP, PT, PTT, BMP #### [facility] [address] [place] [address] Publication Designer: Gary Servin MD Immature granulocytes (Bld) [#/Vol] 0 % Normal 0 [facility] Comment on above: Performed By: #### L ACDS, CDP, PT, PTT, BMP #### [facility] [address] [place] [address] 19417 Publication Designer: Gary Servin MD Lymphocytes (Bld) [#/Vol] 1.57 10*3/uL Normal 1.10-3.70 [facility] Comment on above: Performed By: #### L ACDS, CDP, PT, PTT, BMP #### [facility] [address] [place] [address] 66554 Publication Designer: Gary Servin MD Lymphocytes/100 WBC (Bld) 25 % Normal 25-45 [facility] Comment on above: Performed By: #### L ACDS, CDP, PT, PTT, BMP #### [facility] [address] [place] [address] 88937 Publication Designer: Gary Servin MD MCH (RBC) [Entitic mass] 28.4 pg Normal 25.2-33.5 [facility] Comment on above: Performed By: #### L ACDS, CDP, PT, PTT, BMP #### [address] [address] Publication Designer: Gary Servin MD MCHC (RBC) [Mass/Vol] 33.4 g/dL Normal 28.4-34.8 [facility] Comment on above: Performed By: #### L ACDS, CDP, PT, PTT, BMP #### [place] [address] Publication Designer: Gary Servin MD MCV (RBC) [Entitic vol] 85.0 fL Normal 82.6-102.9 [facility] Comment on above: Performed By: #### L ACDS, CDP, PT, PTT, BMP #### [place] [address] Publication Designer: Gary Servin MD Monocytes (Bld) [#/Vol] 0.87 10*3/uL Normal 0.10-1.40 [facility] Comment on above: Performed By: #### L ACDS, CDP, PT, PTT, BMP #### [place] [address] Publication Designer: Gary Servin MD Monocytes/100 WBC (Bld) 14 % High 2-8 [facility] Comment on above: Performed By: #### L ACDS, CDP, PT, PTT, BMP #### [facility] [address] [place] [address] 01385 Publication Designer: Gary Servin MD Neutrophil (Seg) 61 % Normal 34-64 [facility] Comment on above: Performed By: #### L ACDS, CDP, PT, PTT, BMP #### [address] [address] Publication Designer: Gary Servin MD NRBC Automated 0.0 per 100 WBC Normal 0.0 [facility] Comment on above: Performed By: #### L ACDS, CDP, PT, PTT, BMP #### [address] [address] Publication Designer: Gary Servin MD Platelet mean volume (Bld) [Entitic vol] 9.9 fL Normal 8.1-13.5 [facility] Comment on above: Performed By: #### L ACDS, CDP, PT, PTT, BMP #### [address] [address] Publication Designer: Gary Servin MD Platelets (Bld) [#/Vol] 149 10*3/uL Normal 138-453 [facility] Comment on above: Performed By: #### L ACDS, CDP, PT, PTT, BMP #### [address] [address] Publication Designer: Gary Servin MD RBC (Bld) [#/Vol] 4.01 10*6/uL Low 4.21-5.77 [facility] Comment on above: Performed By: #### L ACDS, CDP, PT, PTT, BMP #### [address] [address] Publication Designer: Gary Servin MD WBC (Bld) [#/Vol] 6.3 10*3/uL Normal 4.5-13.5 [facility] Comment on above: Performed By: #### L ACDS, CDP, PT, PTT, BMP #### [address] [address] Publication Designer: Gary Servin MD Auto Diff Performed NOT REPORTED Normal [facility] Comment on above: Performed By: #### L ACDS, CDP, PT, PTT, BMP #### [facility] [address] [place] [address] 23152 Publication Designer: Gary Servin MD Platelets (Bld) [#/Vol] NOT REPORTED Normal [facility] Comment on above: Performed By: #### L ACDS, CDP, PT, PTT, BMP #### [facility] [address] [place] [address] 53216 Publication Designer: Gary Servin MD RBC morphology finding Nom (Bld) NOT REPORTED Normal [facility] Comment on above: Performed By: #### L ACDS, CDP, PT, PTT, BMP #### [facility] [address] [place] [address] 05108 Publication Designer: Gary Servin MD WBC Morphology NOT REPORTED Normal [facility] Comment on above: Performed By: #### L ACDS, CDP, PT, PTT, BMP #### [address] [address] Publication Designer: Gary Servin MD Flu A/B Ag Detectionon 06-03 Flu A/B Ag Detection Specimen Descriptio n .NASOPHARYNGEAL SWAB Special Requests NOT REPORTED Direct Exam PRESUMPTIVE NEGATIVE for Influenza A + B antigens. PCR testing to confirm this result is available upon request. Specimen will be saved in the laboratory for 7 days. Please call [phone] if PCR testing is indicated. Report Status FINAL 06/03/2019 [facility] Comment on above: Performed By: #### F LUAD #### [address] [address] Publication Designer: Gary Servin MD Gram Stainon 06-03-2019 Microscopic observation Gram stain Nom (Unsp spec) Specimen Description .EXPECTORATED SPUTUM Special Requests NOT REPORTED Direct Exam DUPLICATE ORDER Report Status FINAL 06/03/2019 [facility] Comment on above: Performed By: #### T REP, HIVCMB #### [facility] [address] [place] [address] [phone] Publication Designer: Gary Servin MD LEGIONELLA ANTIGEN, URINEon 06-03-2019 Direct Exam Negative: No L. pneumophila serogroup 1 antigens detected. A negative result does not exclude infection with Leginella pnemophila serogroup 1 nor does it rule out other microbial-caused respiratory infections of disease caused by other serogroups of Legionella pneumophila. [place] Special Requests NOT REPORTED [place] Specimen Description .CLEAN CATCH URINE [place] Lactate, Sepsison 06-03-2019 Lactic Acid,Sep Wbld 1.5 mmol/L Normal 0.5-1.9 [facility] Comment on above: Performed By: #### L ACDS, CDP, PT, PTT, BMP #### [facility] [address] [place] [address] 64178 Publication Designer: Gary Servin MD Lactic Acid, Sepsis NOT REPORTED Normal 0.5-1.9 [facility] Comment on above: Performed By: #### L ACDS, CDP, PT, PTT, BMP #### [facility] [address] [place] [address] 41976 Publication Designer: Gary Servin MD Lactic Acid, Sepsis NOT REPORTED 0.5 - 1. 9 mmol/L [place] Lactic Acid, Sepsis, Whole Blood 1.5 mmol/L 0.5 - 1.9 mmol/L [place] Legionella Ag, Uron 06-03-19 20 Legionella Ag, Ur Specimen Description .CLEAN CATCH URINE Special Requests NOT REPORTED Direct Exam Negative: No L. pneumophila serogroup 1 antigens detected. A negative result does not exclude infection with Leginella pnemophila serogroup 1 nor does it rule out other microbial-caused respiratory infections of disease caused by other serogroups of Legionella pneumophila. Report Status FINAL 06/03/2019 Normal [facility] Comment on above: Performed By: #### T REP, HIVCMB #### [facility] [address] [place] [address] 99343 Publication Designer: Gary Servin MD PTon 06-03-2019 INR Coag (PPP) [Relative time] 1.1 {INR} Normal [facility] Comment on above: Result Comment: Therapeutic Range: Moderate Anticoagulant Intensity: INR = 2.0-3.0 High Anticoagulant Intensity: INR = 2.5-3.5 Performed By: #### T REP, HIVCMB #### [facility] [place] [address] Publication Designer: Gary Servin MD PT Coag (PPP) [Time] 11.6 s Normal 9.0-12.0 [facility] Comment on above: Performed By: #### T REP, HIVCMB #### [facility] [address] [place] [address] [phone] Publication Designer: Gary Servin MD Protime-INRon 06-03-2019 INR Coag (PPP) [Relative time] 1.1 {INR} [place] Comment on above: Therapeutic Range: Moderate Anticoagulant Intensity: INR = 2.0-3.0 High Anticoagulant Intensity: INR = 2.5-3.5 PT Coag (PPP) [Time] 11.6 s [place] RAPID INFLUENZA A/B ANTIGENS on 06-03-2019 Direct Exam PRESUMPTIVE NEGATIVE for Influenza A + B antigens. PCR testing to confirm this result is available upon request. Specimen will be saved in the laboratory for 7 days. Please call [phone] if PCR testing is indicated. [place] Special Requests NOT REPORTED [place] Specimen Description .NASOPHARYNGEAL SWAB [place] Resp Viral Panelon 0 Adenovirus DETECTED Abnormal [facility] Comment on above: Performed By: #### T REP, HIVCMB #### [facility] [address] [place] [address]47 Publication Designer: Gary Servin MD [facility].parapertussis Not Detected Normal [facility] Comment on above: Performed By: #### T REP, HIVCMB #### [facility] [address] [place] [address] 55011 Publication Designer: Gary Servin MD Bordetella pertussis Not Detected Normal [facility] Comment on above: Performed By: #### T REP, HIVCMB #### [facility] [address] [place] [address] 00704 Publication Designer: Gary Servin MD Chlamyd.pneumoniae Not Detected Normal [facility] Comment on above: Performed By: #### T REP, HIVCMB #### [facility] [address] [place] [address] 91685 Publication Designer: Gary Servin MD Coronavirus 229E Not Detected [facility] Comment on above: Performed By: #### T REP, HIVCMB #### [facility] [address] [place] [address] 54675 Publication Designer: Gary Servin MD Coronavirus HKU1 Not Detected [facility] Comment on above: Performed By: #### T REP, HIVCMB #### [facility] [address] [place] [address] 86965 Publication Designer: Gary Servin MD Coronavirus NL63 Not Detected [facility] Comment on above: Performed By: #### T REP, HIVCMB #### [facility] [address] [place] [address] 98563 Publication Designer: Gary Servin MD Coronavirus OC43 Not Detected Normal [facility] Comment on above: Performed By: #### T REP, HIVCMB #### [facility] [address] [place] [address] 45465 Publication Designer: Gary Servin MD Human Metapneumo Not Detected [facility] Comment on above: Performed By: #### T REP, HIVCMB #### [facility] [address] [place] [address] 93597 Publication Designer: Gary Servin MD Influenza A EQUIVOCAL Abnormal [facility] Comment on above: Performed By: #### T REP, HIVCMB #### [facility] [address] [place] [address] 95691 Publication Designer: Gary Servin MD Influenza B Not Detected Normal [facility] Comment on above: Performed By: #### T REP, HIVCMB #### [facility] [address] [place] [address] [phone] Publication Designer: Gary Servin MD Mycoplas.pneumoniae Not Detected Normal [facility] Comment on above: Result Comment: Perf ormed by multiplexed nucleic acid assay. Performed By: #### T REP, HIVCMB #### [facility] [address] [place] [address] 64949 Publication Designer: Gary Servin MD Parainfluenza 1 Not Detected Normal [facility] Comment on above: Performed By: #### T REP, HIVCMB #### [facility] [address] [place] [address] 90265 Publication Designer: Gary Servin MD Parainfluenza 2 Not Detected Normal [facility] Comment on above: Performed By: #### T REP, HIVCMB #### [facility] [address] [place] [address] 09814 Publication Designer: Gary Servin MD Parainfluenza 3 Not Detected Normal [facility] Comment on above: Performed By: #### T REP, HIVCMB #### [facility] [address] [place] [address] 28765 Publication Designer: Gary Servin MD Parainfluenza 4 Not Detected Normal [facility] Comment on above: Performed By: #### T REP, HIVCMB #### [facility] [address] [place] [address] Publication Designer: Gary Servin MD Resp Syncytial Virus Not Detected Normal [facility] Comment on above: Performed By: #### T REP, HIVCMB #### [address] [address] Publication Designer: Gary Servin MD Rhino/Enterovirus Not Detected Normal [facility] Comment on above: Performed By: #### T REP, HIVCMB #### [address] [address] Publication Designer: Gary Servin MD Influenza A H1 NOT REPORTED Normal [facility] Comment on above: Performed By: #### T REP, HIVCMB #### [address] [address] Publication Designer: Gary Servin MD Influenza A H1-2009 NOT REPORTED Normal [facility] Comment on above: Performed By: #### T REP, HIVCMB #### [address] [address] Publication Designer: Gary Servin MD Influenza A H3 NOT REPORTED Normal [facility] Comment on above: Performed By: #### T REP, HIVCMB #### [address] [address] Publication Designer: Gary Servin MD Source: .NASOPHARYNGEAL SWAB Normal [facility] Comment on above: Performed By: #### T REP, HIVCMB #### [address] [address] Publication Designer: Gary Servin MD Respiratory Virus PCR Panelo n 06-03-2019 Adenovirus PCR DETECTED Abnormal Not Detected [facility], [place] B Pertussis by PCR Not Detected Not Detected [facility] [place] Bordetella Parapertussis Not Detected Not Detected [place] Chlamydia pneumoniae By PCR Not Detected Not Detected [place] Coronavirus 229E PCR Not Detected Not Detected [place] Coronavirus HKU1 PCR Not Detected Not Detected [place] Coronavirus NL63 PCR Not Detected Not Detected [place] Coronavirus OC43 PCR Not Detected Not Detected [place] Human Metapneumovirus PCR Not Detected Not Detected [place] Influenza A by PCR EQUIVOCAL Abnormal Not Detected [place] Influenza A H1 (2009) PCR NOT REPORTED Not Detected [place] Influenza A H1 PCR NOT REPORTED Not Detected [place] Influenza A H3 PCR NOT REPORTED Not Detected [place] Influenza B by PCR Not Detected Not Detected [place] Interpretation and review of laboratory results Abnormal [place] Mycoplasma pneumo by PCR Not Detected Not Detected [place] Comment on above: Performed by [facility] nucleic acid assay. Parainfluenza 1 PCR Not Detected Not Detected [place] Parainfluenza 2 PCR Not Detected Not Detected [place] Parainfluenza 3 PCR Not Detected Not Detected [place] Parainfluenza 4 PCR Not Detected Not Detected [place] Resp Syncytial Virus PCR Not Detected Not Detected [place] Rhino/Enterovirus PCR Not Detected Not Detected [place] Specimen Description .NASOPHARYNGEAL SWAB [place] Sputum gram stainon 06-03-19 20 Direct Exam DUPLICATE ORDER [place] Special Requests NOT REPORTED [place] Specimen Description .EXPECTORATED SPUTUM [place] Strep Gr A Direct Agon 06-03 Strep Gr A Direct Ag Specimen Descriptio n .THROAT Special Requests NOT REPORTED Direct Exam Rapid Strep A negative. A negative Rapid Group A Strep Screen result does not rule out the possibility of Group A Streptococci in the specimen. A Group A Strep DNA test is available upon request. Report Status FINAL 06/03/2019 Normal [facility] Comment on above: Performed By: #### S GPA #### [facility] [address] [place] [phone] Publication Designer: Gary Servin MD Strep Pneumoniae Antigenon 0 06-03-2019 Direct Exam Negative [place] Special Requests NOT REPORTED [place] Specimen Description .CLEAN CATCH URINE [place] Strep Screen Group A Throato n 06-03-2019 S. pyogenes Ag IA Ql (Unsp spec) Rapid Strep A negative. A negative Rapid Group A Strep Screen result does not rule out the possibility of Group A Streptococci in the specimen. A Group A Strep DNA test is available upon request. [place] Special Requests NOT REPORTED [place] Specimen Description .THROAT [place] Strep pneum Ag,CSF/Uron 05-17 Strep pneum Ag,CSF/Ur Specimen Descripti on .CLEAN CATCH URINE Special Requests NOT REPORTED Direct Exam NEGATIVE: Strep pneumoniae antigen not detected Report Status FINAL 06/03/2019 Normal [facility] Comment on above: Performed By: #### T REP HIVCMB #### [facility] [address] [place] [address]31 Publication Designer: Gary Servin MD Urinalysis w/ Microon 2019 ----- Normal [facility] Comment on above: Performed By: #### T REP HIVCMB #### [facility] [address] [place] [address]57 Publication Designer: Gary Servin MD Acetoacetic Acid,Ur SMALL Abnormal NEG [facility] Comment on above: Performed By: #### T REP HIVCMB #### [facility] [address] [place] [address] Publication Designer: Gary Servin MD Bilirubin, SemiQt,Ur Negative Normal NEG [facility] Comment on above: Performed By: #### T REP HIVCMB #### [facility] [address] [place] [address]455 Publication Designer: Gary Servin MD Color (U) YELLOW Normal YEL [facility] Comment on above: Performed By: #### T REP, HIVCMB #### [facility] [address] [place] [address] Publication Designer: Gary Servin MD Epithelial cells LM.HPF (Urine sed) [#/Area] 0 TO 2 Normal 0-5 [facility] Comment on above: Performed By: #### T REP, HIVCMB #### [facility] [address] [place] [address] Publication Designer: Gary Servin MD Glucose Ql (U) Negative Normal NEG [facility] Comment on above: Performed By: #### T REP, HIVCMB #### [facility] [address] [place] [address] Publication Designer: Gary Servin MD Hemoglobin, Ur Negative Normal NEG [facility] Comment on above: Performed By: #### T REP, HIVCMB #### [facility] [employer] [address] [place] [id number] Publication Designer: Gary Servin MD Leukocyte esterase Test strip Ql (U) Negative Normal NEG [facility] Comment on above: Performed By: #### T REP, HIVCMB #### [facility] [employer] [address] [place] [address] Publication Designer: Gary Servin MD Nitrite,Ur Negative Normal NEG [facility] Comment on above: Performed By: #### T REP, HIVCMB #### [facility] [address] [place] [address] [phone] Publication Designer: Gary Servin MD pH (U) 5.5 [pH] Normal 5.0-8.0 [facility] Comment on above: Performed By: #### T REP, HIVCMB #### [facility] [address] [place] [address] 37721 Publication Designer: Gary Servin MD Protein Ql (U) Negative Normal NEG [facility] Comment on above: Performed By: #### T REP, HIVCMB #### [facility] [address] [place] [address] [phone] Publication Designer: Gary Servin MD RBC (U) [#/Vol] None Normal 0-4 [facility] Comment on above: Result Comment: Refe rence range defined for non-centrifuged specimen. Performed By: #### T REP HIVCMB #### [facility] [address] [place] [address] [phone] Publication Designer: Gary Servin MD Specific gravity (U) [Rel density] 1.020 Normal 1.005-1.030 [facility] Comment on above: Performed By: #### T REP HIVCMB #### [address] [address] Publication Designer: Gary Servin MD Turbidity CLEAR Normal CLEAR [facility] Comment on above: Performed By: #### T REP HIVCMB #### [address] [address] Publication Designer: Gary Servin MD Urobilinogen,Ur Normal Normal NORM [facility] Comment on above: Performed By: #### T REP HIVCMB #### [facility] [address] [place] [phone] Publication Designer: Gary Servin MD WBC (U) [#/Vol] 0 TO 2 Normal 0-5 [facility] Comment on above: Performed By: #### T REP, HIVCMB #### [facility] [address] [place] [address] 14977 Publication Designer: Gary Servin MD Amorphous sediment LM Ql (Urine sed) NOT REPORTED Normal NONE [facility] Comment on above: Performed By: #### T REP HIVCMB #### [facility] [employer] [facility] [place] [address] Publication Designer: Gary Servin MD Bacteria LM.HPF (Urine sed) [#/Area] NOT REPORTED Normal NONE [facility] Comment on above: Performed By: #### T REP, HIVCMB #### [facility] [address] [place] [address] Publication Designer: Gary Servin MD Casts LM.LPF (Urine sed) [#/Area] NOT REPORTED Normal 0-8 [facility] Comment on above: Performed By: #### T REP, HIVCMB #### [facility] [address] [place] [phone] Publication Designer: Gary Servin MD Crystals LM Nom (Urine sed) NOT REPORTED Normal NONE [facility] Comment on above: Performed By: #### T REP, HIVCMB #### [facility] [address] [place] [address] [phone] Publication Designer: Gary Servin MD Epithelial, Renal NOT REPORTED Normal 0 [facility] Comment on above: Performed By: #### T REP, HIVCMB #### [facility] [address] [place] [address] Publication Designer: Gary Servin MD Mucus Strands NOT REPORTED Normal NONE [facility] Comment on above: Performed By: #### T REP, HIVCMB #### [facility] [address] [place] [address]85 Publication Designer: Gary Servin MD Other Observations NOT REPORTED Normal NREQ [facility] Comment on above: Performed By: #### T REP, HIVCMB #### [facility] [address] [place] [address] 23558 Publication Designer: Gary Servin MD Trichomonas NOT REPORTED Normal NONE [facility] Comment on above: Performed By: #### T REP, HIVCMB #### [email or web address] [address] [place] [address] Publication Designer: Gary Servin MD Yeast LM Ql (Urine sed) NOT REPORTED Normal NONE [facility] Comment on above: Performed By: #### T REP, HIVCMB #### [facility] [address] [place], [place] [phone] Publication Designer: Gary Servin MD Urinalysis with Microscopico n 06-03-2019 Amorphous, UA NOT REPORTED None [facility] [place] Bacteria, UA NOT REPORTED None [place], [place] Bilirubin Urine Negative NEGATIVE [place], [place] Casts UA [place] Color, UA YELLOW YELLOW [place] Crystals UA NOT REPORTED None /HPF [place] Epithelial Cells UA 0 TO 2 [place] Glucose, Ur Negative NEGATIVE [place] Interpretation and review of laboratory results Abnormal [place] Ketones Ql (U) SMALL Abnormal NEGATIVE [place], [place] Leukocyte esterase Test strip Ql (U) Negative NEGATIVE [place] Mucus, UA NOT REPORTED None [place], [place] Nitrite, Urine Negative NEGATIVE [place] Other Observations UA NOT REPORTED NOT REQ. M [place] pH, UA 5.5 [place] Protein (U) [Mass/Vol] Negative NEGATIVE [place] RBC (U) [#/Vol] None [place] Comment on above: Reference range defi [place] for non-centrifuged specimen. Renal Epithelial, Urine NOT REPORTED 0 /HPF [place] Specific [place], UA 1.020 [place], [place] Trichomonas, UA NOT REPORTED None [facility] [place] Turbidity UA CLEAR CLEAR [place] Urine Hgb Negative NEGATIVE [place] Urobilinogen, Urine Normal Normal [place] WBC, UA 0 TO 2 [place] Yeast, UA NOT REPORTED None [place] XR CHEST (2 VW)on 06-03-2019 XR CHEST (2 VW) EXAMINATION: TWO XRAY VIEWS OF THE CHEST 06/03/2019 4:33 am COMPARISON: Chest portable 2018 HISTORY: ORDERING SYSTEM PROVIDED HISTORY: Cough TECHNOLOGIST PROVIDED HISTORY: Cough FINDINGS: The heart is normal in size and configuration. The mediastinal contours are within normal limits. Mid right lung mild ill-defined consolidation is present. Lungs are otherwise well aerated. The pleural surfaces are normal and no evidence of a pleural effusion is seen. Bones and soft tissues are unremarkable. IMPRESSION: Right lower lung lobe upper mild ill-defined consolidation consistent with pneumonia. Interpreted by: Nav Kwong MD Signed by: Nav Kwong MD 06/03/19 Final result Normal [facility] XR CHEST STANDARD (2 VW)on 0 06-03-2019 Tre, pn Incoming Radiant Results From [facility] - 06/03/2019 4:53 AM EST EXAMINATION: TWO XRAY VIEWS OF THE CHEST 06/03/2019 4:33 am COMPARISON: Chest portable 2018 HISTORY: ORDERING SYSTEM PROVIDED HISTORY: Cough TECHNOLOGIST PROVIDED HISTORY: Cough FINDINGS: The heart is normal in size and configuration. The mediastinal contours are within normal limits. Mid right lung mild ill-defined consolidation is present. Lungs are otherwise well aerated. The pleural surfaces are normal and no evidence of a pleural effusion is seen. Bones and soft tissues are unremarkable. IMPRESSION: Right lower lung lobe upper mild ill-defined consolidation consistent with pneumonia. [place] EXAMINATION: TWO XRA Y VIEWS OF THE CHEST 06/03/2019 4:33 am COMPARISON: Chest portable 2018 HISTORY: ORDERING SYSTEM PROVIDED HISTORY: Cough TECHNOLOGIST PROVIDED HISTORY: Cough FINDINGS: The heart is normal in size and configuration. The mediastinal contours are within normal limits. Mid right lung mild ill-defined consolidation is present. Lungs are otherwise well aerated. The pleural surfaces are normal and no evidence of a pleural effusion is seen. Bones and soft tissues are unremarkable. [place] Right lower lung lob e upper mild ill-defined consolidation consistent with pneumonia. [place] Chlamydia/GC DNA, Uron 11-04 Chlamydia Probe, Ur Negative Normal NEG [facility] Comment on above: Result Comment: CHLA MYDIA TRACHOMATIS DNA not detected by nucleic acid amplification. This test is intended for medical purposes only and is not valid for the evaluation of suspected sexual abuse or for other forensic purposes. In certain contexts, culture may be required to meet applicable laws and regulations for diagnosis of C. trachomatis and N. gonorrhoeae infections. Per 2014 CDC recommendations, this test does not include confirmation of positive results by an alternative nucleic acid target. Performed By: #### U CGP #### [facility] [address] [place] [address] 19502 Publication Designer: Gary Servin MD Gonorrhea Probe, Ur Negative Normal NEG [facility] Comment on above: Result Comment: NEIS SERIA GONORRHOEAE DNA not detected by nucleic acid amplification. This test is intended for medical purposes only and is not valid for the evaluation of suspected sexual abuse or for other forensic purposes. In certain contexts, culture may be required to meet applicable laws and regulations for diagnosis of C. trachomatis and N. gonorrhoeae infections. Per 2014 CDC recommendations, this test does not include confirmation of positive results by an alternative nucleic acid target. Performed By: #### U CGP #### [address] [address] Publication Designer: Gary Servin MD Herpes 1&2 Molecularon 11-02 HSV-1, NAAT Negative Normal NEG [facility] Comment on above: Result Comment: HSV- 1 DNA not detected by nucleic acid amplification Performed By: #### H SVDNA #### [facility] [employer] [address] [place] [address] [phone] Publication Designer: Gary Servin MD HSV-2, NAAT Negative Normal [facility] Comment on above: Result Comment: HSV- 2 DNA not detected by nucleic acid amplification Performed By: #### H SVDNA #### [address] [address] Publication Designer: Gary Servin MD Source: .GENITAL - NOT SPECIFIED Normal [facility] Comment on above: Performed By: #### H SVDNA #### [facility] [employer] [address] [place] [address] [phone] Publication Designer: Gary Servin MD HIV Ag/Abon 11-01-2018 HIV Ag/Ab NONREACTIVE Normal NR [facility] Comment on above: Result Comment: No l aboratory evidence of HIV infection. If acute HIV infection is suspected, consider testing for HIV-1 RNA. Performed By: #### Cherie COHEN HIVCMB #### [facility] [address] [place] [phone] Publication Designer: Gary Servin MD T.pallidum Ab Screenon 11-01 T.pallidum Ab Screen NONREACTIVE Normal NR [facility] Comment on above: Result Comment: T. pallidum antibodies are not detected. There is no serological evidence of infection with T. pallidum (early primary syphilis cannot be excluded). Retest in 2-4 weeks if syphilis is clinically suspect. Performed By: #### Cherie COHEN HIVCMB #### [address] [address] Publication Designer: Gary Servin MD Trichomonas/Wet Prepon 11-01 Trichomonas/Wet Prep Specimen Descriptio n .PENIS Special Requests NOT REPORTED Direct Exam NO TRICHOMONAS SEEN Report Status FINAL 11/01/2018 Normal [facility] Comment on above: Performed By: #### W P #### [address] [address] Publication Designer: Gary Servin MD CBC with Diffon 08-15-2018 Abs. Basophil 0.00 k/uL Normal 0.0-0.2 [facility] Comment on above: Performed By: #### C DP, ALCB, CP #### [facility] [address] [facility] [place] [address] Abs.Neutrophil (Seg) 2.30 k/uL Normal 1.3-9.1 [facility] Comment on above: Performed By: #### C DP, ALCB, CP #### [facility] [address] [facility] [place] [address] Basophils/100 WBC (Bld) 1 % Normal 0-2 [facility] Comment on above: Performed By: #### C DP, ALCB, CP #### [facility] [address] [facility] [place] [address] Eosinophils #/vol (Bld) 0.20 10*3/uL Normal 0.0-0.4 [facility] Comment on above: Performed By: #### C DP, ALCB, CP #### [facility] [address] [facility] [place] [address] Eosinophils/100 WBC (Bld) 3 % Normal 0-4 [facility] Comment on above: Performed By: #### C DP, ALCB, CP #### [place] [address] [facility] [place] [address] Lymphocytes #/vol (Bld) 4.20 10*3/uL Normal 1.2-5.2 [facility] Comment on above: Performed By: #### C DP, ALCB, CP #### [place] [address] [facility] [place] [address] Lymphocytes/100 WBC (Bld) 54 % High 25-45 [facility] Comment on above: Performed By: #### C DP, ALCB, CP #### [place] [address] [facility] [place] [address] Monocytes #/vol (Bld) 0.90 10*3/uL Normal 0.1-1.3 M [facility] Comment on above: Performed By: #### C DP, ALCB, CP #### [facility] [address] [facility] [place] [address] Monocytes/100 WBC (Bld) 12 % High 2-8 [facility] Comment on above: Performed By: #### C DP, ALCB, CP #### [facility] [address] [facility] [place] [address] Neutrophil (Seg) 30 % Low 34-64 [facility] Comment on above: Performed By: #### C DP, ALCB, CP #### [facility] [address] [facility] [place] [address] Erythrocyte distribution width Ratio (RBC) 13.2 % Normal 11.5-14.9 [facility] Comment on above: Performed By: #### C DP, ALCB, CP #### [address] [address] Hematocrit Volume Fraction (Bld) 38.8 % Low 41-53 [facility] Comment on above: Performed By: #### C DP, ALCB, CP #### [address] [address] Hemoglobin mass conc (Bld) 13.1 g/dL Low 13.5-17.5 [facility] Comment on above: Performed By: #### C DP, ALCB, CP #### [address] [place] [address] MCH Entitic mass (RBC) 28.8 pg Normal 26-34 [facility] Comment on above: Performed By: #### C DP, ALCB, CP #### [address] [place] [address] MCHC mass conc (RBC) 33.7 g/dL Normal 31-37 [facility] Comment on above: Performed By: #### C DP, ALCB, CP #### [address] [address] MCV Entitic volume (RBC) 85.7 fL Normal 80-100 [facility] Comment on above: Performed By: #### C DP, ALCB, CP #### [facility] [address] [facility] [place] [address] Platelet mean volume Entitic volume (Bld) 7.3 fL Normal 6.0-12.0 [facility] Comment on above: Performed By: #### C DP, ALCB, CP #### [facility] [address] [place] [address] Platelets #/vol (Bld) 285 10*3/uL Normal 150-450 [facility] Comment on above: Performed By: #### C DP, ALCB, CP #### [address] [address] RBC #/vol (Bld) 4.53 10*6/uL Normal 4.5-5.9 [facility] Comment on above: Performed By: #### C DP, ALCB, CP #### [address] [address] WBC #/vol (Bld) 7.2 10*3/uL Normal 4.5-13.5 [facility] Comment on above: Performed By: #### C DP, ALCB, CP #### [place] [address] [place] [address] Abs.Imm.Granulocyte NOT REPORTED Normal 0.00-0.30 [facility] Comment on above: Performed By: #### C DP, ALCB, CP #### [place] [place] [address] Auto Diff Performed NOT REPORTED Normal [facility] Comment on above: Performed By: #### C DP, ALCB, CP #### [address] [address] Immature granulocytes #/vol (Bld) NOT REPORTED Normal 0 [facility] Comment on above: Performed By: #### C DP, ALCB, CP #### [facility] [address] [facility] [place] [address] NRBC Automated NOT REPORTED Normal [facility] Comment on above: Performed By: #### C DP, ALCB, CP #### [place] [address] [facility] [place] [address] Platelets #/vol (Bld) NOT REPORTED Normal [facility] Comment on above: Performed By: #### C DP, ALCB, CP #### [address] [place] [address] RBC morphology finding Nom (Bld) NOT REPORTED Normal [facility] Comment on above: Performed By: #### C DP, ALCB, CP #### [address] [place] [address] WBC Morphology NOT REPORTED Normal [facility] Comment on above: Performed By: #### C DP, ALCB, CP #### [address] [place] [address] Comp Metabolic Profon 2018 (cont.) Normal [facility] Comment on above: Result Comment: Aver age GFR for 20-29 years old: 116 mL/min/1.73sq m Chronic Kidney Disease: <60 mL/min/1.73sq m Kidney failure: <15 mL/min/1.73sq m eGFR calculated using average adult body mass. Additional eGFR calculator available at: http://[email or web address].com/multiple_crcl_2012.htm Performed By: #### C DP, ALCB, CP #### [address] [place] [address] Albumin mass conc 3.9 g/dL Normal 3.5-5.2 [facility] Comment on above: Performed By: #### C DP, ALCB, CP #### [address] [facility] [place] [address] Alkaline Phos 173 U/L High 40-129 [facility] Comment on above: Performed By: #### C DP, ALCB, CP #### [facility] [address] [place] [address] ALT enzyme act/vol 39 U/L Normal 5-41 [facility] Comment on above: Performed By: #### C DP, ALCB, CP #### [facility] [address] [facility] [place] [address] Anion gap molar conc 11 mmol/L Normal 9-17 [facility] Comment on above: Performed By: #### C DP, ALCB, CP #### [facility] [address] [facility] [place] [address] AST enzyme act/vol 20 U/L Normal <40 [facility] Comment on above: Performed By: #### C DP, ALCB, CP #### [facility] [address] [facility] [place] [address] Bilirubin Ql (U) 0.15 mg/dL Low 0.3-1.2 [facility] Comment on above: Performed By: #### C DP, ALCB, CP #### [facility] [address] [facility] [place] [address] Calcium mass conc 8.7 mg/dL Normal 8.6-10.4 [facility] Comment on above: Performed By: #### C DP, ALCB, CP #### [facility] [address] [facility] [place] [address] Chloride molar conc 104 mmol/L Normal 98-107 [facility] Comment on above: Performed By: #### C DP, ALCB, CP #### [facility] [address] [facility] [place] [address] CO2 molar conc 24 mmol/L Normal 20-31 [facility] Comment on above: Performed By: #### C DP, ALCB, CP #### [facility] [address] [facility] [place] [address] Creatinine mass conc 0.57 mg/dL Low 0.70-1.20 [facility] Comment on above: Performed By: #### C DP, ALCB, CP #### [facility] [address] [facility] [place] [address] GFR, Amer >60 Normal >60 [facility] Comment on above: Performed By: #### C DP, ALCB, CP #### [facility] [address] [facility] [place] [address] GFR,non Amer >60 Normal >60 [facility] Comment on above: Performed By: #### C DP, ALCB, CP #### [facility] [address] [facility] [place] [address] Glucose mass conc 122 mg/dL High 70-99 [facility] Comment on above: Performed By: #### C DP, ALCB, CP #### [facility] [address] [facility] [place] [address] Potassium molar conc 4.5 mmol/L Normal 3.7-5.3 [facility] Comment on above: Performed By: #### C DP, ALCB, CP #### [facility] [address] [place] [address] Protein mass conc 6.3 g/dL Low 6.4-8.3 [facility] Comment on above: Performed By: #### C DP, ALCB, CP #### [facility] [address] [place] [address] Sodium molar conc 139 mmol/L Normal 135-144 [facility] Comment on above: Performed By: #### C DP, ALCB, CP #### [facility] [address] [place] [address] Urea nitrogen mass conc 15 mg/dL Normal 6-20 [facility] Comment on above: Performed By: #### C DP, ALCB, CP #### [address] [place] [place] [address] Albumin/Globulin mass ratio NOT REPORTED Normal 1.0-2.5 [facility] Comment on above: Performed By: #### C DP, ALCB, CP #### [address] [address] BUN/CRE Ratio NOT REPORTED Normal 9-20 [facility] Comment on above: Performed By: #### C DP, ALCB, CP #### [address] [address] Staging: NOT REPORTED Normal [facility] Comment on above: Performed By: #### C DP, ALCB, CP #### [place] [place] [address] Extra Yellow Tubeon 08-16-19 19 Extra Yellow Tube Normal [facility] Comment on above: Performed By: #### C DP, ALCB, CP #### [address] [address] CBC with Diffon 04-28-2018 Abs. Basophil 0.10 k/uL Normal 0.0-0.2 [facility] Comment on above: Performed By: #### C DP, ALCB, CP #### [address] [address] Abs.Neutrophil (Seg) 3.00 k/uL Normal 1.3-9.1 [facility] Comment on above: Performed By: #### C DP, ALCB, CP #### [facility] [address] [facility] [place] [address] Basophils/100 WBC (Bld) 1 % Normal 0-2 [facility] Comment on above: Performed By: #### C DP, ALCB, CP #### [facility] [address] [facility] [place] [address] Eosinophils #/vol (Bld) 0.10 10*3/uL Normal 0.0-0.4 [facility] Comment on above: Performed By: #### C DP, ALCB, CP #### [place] [address] [facility] [place] [address] Eosinophils/100 WBC (Bld) 2 % Normal 0-4 [facility] Comment on above: Performed By: #### C DP, ALCB, CP #### [place] [address] [facility] [place] [address] Erythrocyte distribution width Ratio (RBC) 12.2 % Normal 11.5-14.9 [facility] Comment on above: Performed By: #### C DP, ALCB, CP #### [place] [address] [facility] [place] [address] Hematocrit Volume Fraction (Bld) 42.0 % Normal 41-53 [facility] Comment on above: Performed By: #### C DP, ALCB, CP #### [place] [address] [facility] [place] [address] Hemoglobin mass conc (Bld) 14.1 g/dL Normal 13.5-17.5 [facility] Comment on above: Performed By: #### C DP, ALCB, CP #### [place] [address] [facility] [place] [address] Lymphocytes #/vol (Bld) 2.30 10*3/uL Normal 1.2-5.2 [facility] Comment on above: Performed By: #### C DP, ALCB, CP #### [facility] [address] [place] [address] Lymphocytes/100 WBC (Bld) 38 % Normal 25-45 [facility] Comment on above: Performed By: #### C DP, ALCB, CP #### [address] [place] [address] MCH Entitic mass (RBC) 29.1 pg Normal 26-34 [facility] Comment on above: Performed By: #### C DP, ALCB, CP #### [address] [address] MCHC mass conc (RBC) 33.6 g/dL Normal 31-37 [facility] Comment on above: Performed By: #### C DP, ALCB, CP #### [address] [place] [address] MCV Entitic volume (RBC) 86.8 fL Normal 80-100 [facility] Comment on above: Performed By: #### C DP, ALCB, CP #### [address] [address] Monocytes #/vol (Bld) 0.70 10*3/uL Normal 0.1-1.3 [facility] Comment on above: Performed By: #### C DP, ALCB, CP #### [address] [address] Monocytes/100 WBC (Bld) 11 % High 2-8 [facility] Comment on above: Performed By: #### C DP, ALCB, CP #### [address] [address] Neutrophil (Seg) 48 % Normal 34-64 [facility] Comment on above: Performed By: #### C DP, ALCB, CP #### [facility] [address] [place] [address] Platelet mean volume Entitic volume (Bld) 7.3 fL Normal 6.0-12.0 [facility] Comment on above: Performed By: #### C DP, ALCB, CP #### [address] [address] Platelets #/vol (Bld) 261 10*3/uL Normal 150-450 [facility] Comment on above: Performed By: #### C DP, ALCB, CP #### [address] [address] RBC #/vol (Bld) 4.84 10*6/uL Normal 4.5-5.9 [facility] Comment on above: Performed By: #### C DP, ALCB, CP #### [address] [address] WBC #/vol (Bld) 6.2 10*3/uL Normal 4.5-13.5 [facility] Comment on above: Performed By: #### C DP, ALCB, CP #### [address] [address] Abs.Imm.Granulocyte NOT REPORTED Normal 0.00-0.30 [facility] Comment on above: Performed By: #### C DP, ALCB, CP #### [address] [place] [address] Auto Diff Performed NOT REPORTED Normal [facility] Comment on above: Performed By: #### C DP, ALCB, CP #### [address] [address] Immature granulocytes #/vol (Bld) NOT REPORTED Normal 0 [facility] Comment on above: Performed By: #### C DP, ALCB, CP #### [address] [place] [address] NRBC Automated NOT REPORTED Normal [facility] Comment on above: Performed By: #### C DP, ALCB, CP #### [address] [address] Platelets #/vol (Bld) NOT REPORTED Normal [facility] Comment on above: Performed By: #### C DP, ALCB, CP #### [address] [address] RBC morphology finding Nom (Bld) NOT REPORTED Normal [facility] Comment on above: Performed By: #### C DP, ALCB, CP #### [address] [address] WBC Morphology NOT REPORTED Normal [facility] Comment on above: Performed By: #### C DP, ALCB, CP #### [address] [address] CBCon 04-27-2018 Erythrocyte distribution width Ratio (RBC) 12.7 % Normal 11.5-14.9 [facility] Comment on above: Performed By: #### C DP, ALCB, CP #### [address] [address] Hematocrit Volume Fraction (Bld) 37.4 % Low 41-53 [facility] Comment on above: Performed By: #### C DP, ALCB, CP #### [address] [address] Hemoglobin mass conc (Bld) 12.4 g/dL Low 13.5-17.5 [facility] Comment on above: Performed By: #### C DP, ALCB, CP #### [facility] [address] [place] [address] MCH Entitic mass (RBC) 28.7 pg Normal 26-34 [facility] Comment on above: Performed By: #### C DP, ALCB, CP #### [address] [place] [address] MCHC mass conc (RBC) 33.3 g/dL Normal 31-37 [facility] Comment on above: Performed By: #### C DP, ALCB, CP #### [address] [address] MCV Entitic volume (RBC) 86.1 fL Normal 80-100 [facility] Comment on above: Performed By: #### C DP, ALCB, CP #### [address] [address] Platelet mean volume Entitic volume (Bld) 7.0 fL Normal 6.0-12.0 [facility] Comment on above: Performed By: #### C DP, ALCB, CP #### [address] [address] Platelets #/vol (Bld) 232 10*3/uL Normal 150-450 [facility] Comment on above: Performed By: #### C DP, ALCB, CP #### [address] [address] RBC #/vol (Bld) 4.34 10*6/uL Low 4.5-5.9 [facility] Comment on above: Performed By: #### C DP, ALCB, CP #### [address] [address] WBC #/vol (Bld) 7.8 10*3/uL Normal 4.5-13.5 [facility] Comment on above: Performed By: #### C DP, ALCB, CP #### [facility] [address] [facility] [place] [address] NRBC Automated NOT REPORTED Normal [facility] Comment on above: Performed By: #### C DP, ALCB, CP #### [facility] [address] [facility] [place] [address] Comp Metabolic Pr/rfx MGon 0 - (cont.) Normal [facility] Comment on above: Result Comment: Aver age GFR for 20-29 years old: 116 mL/min/1.73sq m Chronic Kidney Disease: <60 mL/min/1.73sq m Kidney failure: <15 mL/min/1.73sq m eGFR calculated using average adult body mass. Additional eGFR calculator available at: http://www.[employer]/multiple_crcl_2012.htm Performed By: #### C DP, ALCB, CP #### [facility] [address] [facility] [place] [address] Albumin mass conc 3.4 g/dL Low 3.5-5.2 [facility] Comment on above: Performed By: #### C DP, ALCB, CP #### [facility] [address] [facility] [place] [address] Alkaline Phos 119 U/L Normal 40-129 [facility] Comment on above: Performed By: #### C DP, ALCB, CP #### [facility] [address] [facility] [place] [address] ALT enzyme act/vol 42 U/L High 5-41 [facility] Comment on above: Performed By: #### C DP, ALCB, CP #### [facility] [address] [facility] [place] [address] Anion gap molar conc 8 mmol/L Low 9-17 [facility] Comment on above: Performed By: #### C DP, ALCB, CP #### [facility] [address] [place] [address] AST enzyme act/vol 19 U/L Normal <40 [facility] Comment on above: Performed By: #### C DP, ALCB, CP #### [facility] [address] [place] [address] Bilirubin Ql (U) 0.33 mg/dL Normal 0.3-1.2 [facility] Comment on above: Performed By: #### C DP, ALCB, CP #### [facility] [address] [place] [address] Calcium mass conc 9.2 mg/dL Normal 8.6-10.4 [facility] Comment on above: Performed By: #### C DP, ALCB, CP #### [facility] [address] [facility] [place] [address] Chloride molar conc 110 mmol/L High 98-107 [facility] Comment on above: Performed By: #### C DP, ALCB, CP #### [facility] [address] [place] [address] CO2 molar conc 27 mmol/L Normal 20-31 [facility] Comment on above: Performed By: #### C DP, ALCB, CP #### [facility] [address] [place] [address] Creatinine mass conc 0.67 mg/dL Low 0.70-1.20 [facility] Comment on above: Performed By: #### C DP, ALCB, CP #### [facility] [address] [place] [address] GFR, Amer >60 Normal >60 [facility] Comment on above: Performed By: #### C DP, ALCB, CP #### [facility] [address] [facility] [place] [address] GFR,non Amer >60 Normal >60 [facility] Comment on above: Performed By: #### C DP, ALCB, CP #### [facility] [address] [facility] [place] [address] Glucose mass conc 121 mg/dL High 70-99 [facility] Comment on above: Performed By: #### C DP, ALCB, CP #### [facility] [address] [facility] [place] [address] Potassium molar conc 4.5 mmol/L Normal 3.7-5.3 [facility] Comment on above: Performed By: #### C DP, ALCB, CP #### [facility] [address] [facility] [place] [address] Protein mass conc 5.5 g/dL Low 6.4-8.3 [facility] Comment on above: Performed By: #### C DP, ALCB, CP #### [facility] [address] [facility] [place] [address] Sodium molar conc 145 mmol/L High 135-144 [facility] Comment on above: Performed By: #### C DP, ALCB, CP #### [facility] [address] [facility] [place] [address] Urea nitrogen mass conc 9 mg/dL Normal 6-20 [facility] Comment on above: Performed By: #### C DP, ALCB, CP #### [facility] [address] [place] [address] Albumin/Globulin mass ratio NOT REPORTED Normal 1.0-2.5 [facility] Comment on above: Performed By: #### C DP, ALCB, CP #### [facility] [address] [facility] [place] [address] BUN/CRE Ratio NOT REPORTED Normal 9-20 [facility] Comment on above: Performed By: #### C DP, ALCB, CP #### [facility] [address] [facility] [place] [address] Staging: NOT REPORTED Normal [facility] Comment on above: Performed By: #### C DP, ALCB, CP #### [facility] [address] [facility] [place] [address] Ammoniaon 2018 Ammonia mass conc (P) 28 umol/L Normal 16-60 [facility] Comment on above: Performed By: #### C DP, ALCB, CP #### [address] [facility] [place] [address] Basic Metabolic Profon 04-26 (cont.) Normal [facility] Comment on above: Result Comment: Aver age GFR for 20-29 years old: 116 mL/min/1.73sq m Chronic Kidney Disease: <60 mL/min/1.73sq m Kidney failure: <15 mL/min/1.73sq m eGFR calculated using average adult body mass. Additional eGFR calculator available at: http://www.[employer]/multiple_crcl_2012.htm Performed By: #### C DP, BMP, LIP, LIVP, MG, TROPI, EDTOX #### [facility] [address] [facility] [place] [address] Anion gap molar conc 15 mmol/L Normal 9-17 [facility] Comment on above: Performed By: #### C DP, BMP, LIP, LIVP, MG, TROPI, EDTOX #### [facility] [address] [facility] [place] [address] Calcium mass conc 9.0 mg/dL Normal 8.6-10.4 [facility] Comment on above: Performed By: #### C DP, BMP, LIP, LIVP, MG, TROPI, EDTOX #### [facility] [address] [facility] [place] [address] Chloride molar conc 106 mmol/L Normal 98-107 [facility] Comment on above: Performed By: #### C DP, BMP, LIP, LIVP, MG, TROPI, EDTOX #### [address] [place] [address] CO2 molar conc 20 mmol/L Normal 20-31 [facility] Comment on above: Performed By: #### C DP, BMP, LIP, LIVP, MG, TROPI, EDTOX #### [address] [facility] [place] [address] Creatinine mass conc 0.60 mg/dL Low 0.70-1.20 [facility] Comment on above: Performed By: #### C DP, BMP, LIP, LIVP, MG, TROPI, EDTOX #### [address] [place] [address] GFR, Amer >60 Normal >60 [facility] Comment on above: Performed By: #### C DP, BMP, LIP, LIVP, MG, TROPI, EDTOX #### [address] [place] [address] GFR,non Amer >60 Normal >60 [facility] Comment on above: Performed By: #### C DP, BMP, LIP, LIVP, MG, TROPI, EDTOX #### [address] [address] Glucose mass conc 118 mg/dL High 70-99 [facility] Comment on above: Performed By: #### C DP, BMP, LIP, LIVP, MG, TROPI, EDTOX #### [facility] [address] [facility] [place] [address] Potassium molar conc 3.7 mmol/L Normal 3.7-5.3 [facility] Comment on above: Performed By: #### C DP, BMP, LIP, LIVP, MG, TROPI, EDTOX #### [facility] [address] [facility] [place] [address] Sodium molar conc 141 mmol/L Normal 135-144 [facility] Comment on above: Performed By: #### C DP, BMP, LIP, LIVP, MG, TROPI, EDTOX #### [address] [facility] [place] [address] Urea nitrogen mass conc 19 mg/dL Normal 6-20 [facility] Comment on above: Performed By: #### C DP, BMP, LIP, LIVP, MG, TROPI, EDTOX #### [address] [facility] [place] [address] BUN/CRE Ratio NOT REPORTED Normal 9-20 [facility] Comment on above: Performed By: #### C DP, BMP, LIP, LIVP, MG, TROPI, EDTOX #### [address] [facility] [place] [address] Staging: NOT REPORTED Normal [facility] Comment on above: Performed By: #### C DP, BMP, LIP, LIVP, MG, TROPI, EDTOX #### [address] [place] [address] CBC with Diffon 2018 Abs. Basophil 0.00 k/uL Normal 0.0-0.2 [facility] Comment on above: Performed By: #### C DP, BMP, LIP, LIVP, MG, TROPI, EDTOX #### [address] [place] [address] Abs.Neutrophil (Seg) 2.70 k/uL Normal 1.3-9.1 [facility] Comment on above: Performed By: #### C DP, BMP, LIP, LIVP, MG, TROPI, EDTOX #### [facility] [address] [place] [address] Basophils/100 WBC (Bld) 1 % Normal 0-2 [facility] Comment on above: Performed By: #### C DP, BMP, LIP, LIVP, MG, TROPI, EDTOX #### [facility] [address] [facility] [place] [address] Eosinophils #/vol (Bld) 0.10 10*3/uL Normal 0.0-0.4 [facility] Comment on above: Performed By: #### C DP, BMP, LIP, LIVP, MG, TROPI, EDTOX #### [address] [place] [address] Eosinophils/100 WBC (Bld) 2 % Normal 0-4 [facility] Comment on above: Performed By: #### C DP, BMP, LIP, LIVP, MG, TROPI, EDTOX #### [address] [facility] [place] [address] Erythrocyte distribution width Ratio (RBC) 12.6 % Normal 11.5-14.9 [facility] Comment on above: Performed By: #### C DP, BMP, LIP, LIVP, MG, TROPI, EDTOX #### [address] [facility] [place] [address] Hematocrit Volume Fraction (Bld) 41.7 % Normal 41-53 [facility] Comment on above: Performed By: #### C DP, BMP, LIP, LIVP, MG, TROPI, EDTOX #### [address] [place] [address] Hemoglobin mass conc (Bld) 14.1 g/dL Normal 13.5-17.5 [facility] Comment on above: Performed By: #### C DP, BMP, LIP, LIVP, MG, TROPI, EDTOX #### [facility] [address] [place] [address] Lymphocytes #/vol (Bld) 2.20 10*3/uL Normal 1.2-5.2 [facility] Comment on above: Performed By: #### C DP, BMP, LIP, LIVP, MG, TROPI, EDTOX #### [address] [place] [address] Lymphocytes/100 WBC (Bld) 39 % Normal 25-45 [facility] Comment on above: Performed By: #### C DP, BMP, LIP, LIVP, MG, TROPI, EDTOX #### [address] [place] [address] MCH Entitic mass (RBC) 29.0 pg Normal 26-34 [facility] Comment on above: Performed By: #### C DP, BMP, LIP, LIVP, MG, TROPI, EDTOX #### [address] [place] [address] MCHC mass conc (RBC) 33.7 g/dL Normal 31-37 [facility] Comment on above: Performed By: #### C DP, BMP, LIP, LIVP, MG, TROPI, EDTOX #### [address] [facility] [place] [address] MCV Entitic volume (RBC) 86.0 fL Normal 80-100 [facility] Comment on above: Performed By: #### C DP, BMP, LIP, LIVP, MG, TROPI, EDTOX #### [address] [facility] [place] [address] Monocytes #/vol (Bld) 0.70 10*3/uL Normal 0.1-1.3 [facility] Comment on above: Performed By: #### C DP, BMP, LIP, LIVP, MG, TROPI, EDTOX #### [facility] [address] [facility] [place] [address] Monocytes/100 WBC (Bld) 12 % High 2-8 [facility] Comment on above: Performed By: #### C DP, BMP, LIP, LIVP, MG, TROPI, EDTOX #### [address] [place] [address] Neutrophil (Seg) 46 % Normal 34-64 [facility] Comment on above: Performed By: #### C DP, BMP, LIP, LIVP, MG, TROPI, EDTOX #### [address] [facility] [place] [address] Platelet mean volume Entitic volume (Bld) 7.4 fL Normal 6.0-12.0 [facility] Comment on above: Performed By: #### C DP, BMP, LIP, LIVP, MG, TROPI, EDTOX #### [address] [place] [address] Platelets #/vol (Bld) 268 10*3/uL Normal 150-450 [facility] Comment on above: Performed By: #### C DP, BMP, LIP, LIVP, MG, TROPI, EDTOX #### [address] [facility] [place] [address] RBC #/vol (Bld) 4.85 10*6/uL Normal 4.5-5.9 [facility] Comment on above: Performed By: #### C DP, BMP, LIP, LIVP, MG, TROPI, EDTOX #### [address] [place] [address] WBC #/vol (Bld) 5.8 10*3/uL Normal 4.5-13.5 [facility] Comment on above: Performed By: #### C DP, BMP, LIP, LIVP, MG, TROPI, EDTOX #### [address] [place] [address] Abs.Imm.Granulocyte NOT REPORTED Normal 0.00-0.30 [facility] Comment on above: Performed By: #### C DP, BMP, LIP, LIVP, MG, TROPI, EDTOX #### [address] [address] Auto Diff Performed NOT REPORTED Normal [facility] Comment on above: Performed By: #### C DP, BMP, LIP, LIVP, MG, TROPI, EDTOX #### [address] [address] Immature granulocytes #/vol (Bld) NOT REPORTED Normal 0 [facility] Comment on above: Performed By: #### C DP, BMP, LIP, LIVP, MG, TROPI, EDTOX #### [address] [place] [address] NRBC Automated NOT REPORTED Normal [facility] Comment on above: Performed By: #### C DP, BMP, LIP, LIVP, MG, TROPI, EDTOX #### [address] [address] Platelets #/vol (Bld) NOT REPORTED Normal [facility] Comment on above: Performed By: #### C DP, BMP, LIP, LIVP, MG, TROPI, EDTOX #### [address] [address] RBC morphology finding Nom (Bld) NOT REPORTED Normal [facility] Comment on above: Performed By: #### C DP, BMP, LIP, LIVP, MG, TROPI, EDTOX #### [address] [address] WBC Morphology NOT REPORTED Normal [facility] Comment on above: Performed By: #### C DP, BMP, LIP, LIVP, MG, TROPI, EDTOX #### [address] [address] Drug Scr, Abuse, Uron 2018 Amphetamine(s),Ur Positive Abnormal NEG [facility] Comment on above: Result Comment: (Positive cutoff 1000 ng/mL) Performed By: #### C DP, ALCB, CP #### [address] [address] Barbiturate(s),Ur Negative Normal NEG [facility] Comment on above: Result Comment: (Positive cutoff 200 ng/mL) Performed By: #### C DP, ALCB, CP #### [address] [address] Base excess Calculated molar conc (Bld) Negative Normal NEG [facility] Comment on above: Result Comment: (Positive cutoff 300 ng/mL) Performed By: #### C DP, ALCB, CP #### [address] [address] Benzodiazepine(s) Negative Normal NEG [facility] Comment on above: Result Comment: (Positive cutoff 200 ng/mL) Performed By: #### C DP, ALCB, CP #### [address] [address] Cannabinoid(s),Ur Positive Abnormal NEG [facility] Comment on above: Result Comment: (Positive cutoff 50 ng/mL) Performed By: #### C DP, ALCB, CP #### [address] [address] Interpretive Info Assay provides medic al screening only. The absence of expected drug(s) and/or Normal [facility] Comment on above: Result Comment: meta bolite(s) may indicate diluted or adulterated urine, limitations of testing or timing of collection. Testing for legal purposes should be confirmed by another method. To request confirmation of test result, please call the lab within 7 days of sample submission. Performed By: #### C DP, ALCB, CP #### [address] [address] Methadone Ql (U) Negative Normal NEG [facility] Comment on above: Result Comment: (Positive cutoff 300 ng/mL) Performed By: #### C DP, ALCB, CP #### [address] [address] Opiate(s), Ur Negative Normal NEG [facility] Comment on above: Result Comment: (Positive cutoff 300 ng/mL) Performed By: #### C DP, ALCB, CP #### [address] [address] Oxycodone, Urine Negative Normal NEG [facility] Comment on above: Result Comment: (Positive cutoff 100 ng/mL) Performed By: #### C DP, ALCB, CP #### [address] [address] Phencyclidine, Ur Negative Normal NEG [facility] Comment on above: Result Comment: (Positive cutoff 25 ng/mL) Performed By: #### C DP, ALCB, CP #### [address] [address] Buprenorphrine, Ur NOT REPORTED Normal NEG [facility] Comment on above: Performed By: #### C DP, ALCB, CP #### [facility] [address] [facility] [place] [address] MDMA, Urine NOT REPORTED Normal NEG [facility] Comment on above: Performed By: #### C DP, ALCB, CP #### [address] [place] [address] Methamphetamine, Ur NOT REPORTED Normal NEG [facility] Comment on above: Performed By: #### C DP, ALCB, CP #### [address] [address] Protein mass conc (U) NOT REPORTED Normal NEG [facility] Comment on above: Performed By: #### C DP, ALCB, CP #### [address] [address] Tricyclic antidepressants Screen Ql (U) NOT REPORTED Normal NEG [facility] Comment on above: Performed By: #### C DP, ALCB, CP #### [address] [address] Lipaseon 2018 Lipase enzyme act/vol 24 U/L Normal 13-60 [facility] Comment on above: Performed By: #### C DP, BMP, LIP, LIVP, MG, TROPI, EDTOX #### [address] [address] Liver Profileon 2018 Albumin mass conc 4.0 g/dL Normal 3.5-5.2 [facility] Comment on above: Performed By: #### C DP, ALCB, CP #### [address] [address] Alkaline Phos 148 U/L High 40-129 [facility] Comment on above: Performed By: #### C DP, ALCB, CP #### [address] [place] [address] ALT enzyme act/vol 57 U/L High 5-41 [facility] Comment on above: Performed By: #### C DP, ALCB, CP #### [facility] [address] [facility] [place] [address] AST enzyme act/vol 27 U/L Normal <40 [facility] Comment on above: Performed By: #### C DP, ALCB, CP #### [facility] [address] [facility] [place] [address] Bilirubin Ql (U) 0.49 mg/dL Normal 0.3-1.2 [facility] Comment on above: Performed By: #### C DP, ALCB, CP #### [address] [place] [address] Bilirubin, Indirect 0.34 mg/dL Normal 0.00-1.00 [facility] Comment on above: Performed By: #### C DP, ALCB, CP #### [address] [facility] [place] [address] Bilirubin.direct mass conc 0.15 mg/dL Normal <0.31 [facility] Comment on above: Performed By: #### C DP, ALCB, CP #### [facility] [address] [facility] [place] [address] Protein mass conc 6.6 g/dL Normal 6.4-8.3 [facility] Comment on above: Performed By: #### C DP, ALCB, CP #### [address] [place] [address] Albumin/Globulin mass ratio NOT REPORTED Normal 1.0-2.5 [facility] Comment on above: Performed By: #### C DP, ALCB, CP #### [address] [place] [address] Globulin mass conc (S) NOT REPORTED Normal 1.5-3.8 [facility] Comment on above: Performed By: #### C DP, ALCB, CP #### [facility] [address] [place] [address] Magnesiumon 2018 Magnesium mass conc 1.9 mg/dL Normal 1.6-2.6 [facility] Comment on above: Performed By: #### C DP, ALCB, CP #### [facility] [address] [place] [address] Tox Scr, Bld, EDon 9 Acetaminophen mass conc <5 Low 10-30 [facility] Comment on above: Performed By: #### C DP, ALCB, CP #### [address] [address] Salicylate <1 Low 3-10 [facility] Comment on above: Performed By: #### C DP, ALCB, CP #### [facility] [address] [place] [address] Ethanol mass conc mg/dL Normal <10 [facility] Comment on above: Performed By: #### C DP, ALCB, CP #### [address] [address] Ethanol percent <0.010 Normal [facility] Comment on above: Performed By: #### C DP, ALCB, CP #### [address] [address] Troponinon 2018 Troponin I.cardiac mass conc ng/mL Normal 0-22 [facility] Comment on above: Result Comment: * New Reference Range and Unit Change * High Sensitivity Troponin values cannot be compared with other Troponin methodologies. Patients with high levels of Biotin oral intake (i.e >5mg/day) may have falsely decreased Troponin levels. Samples collected within 8 hours of biotin intake may require additional information for diagnosis. Performed By: #### C DP, ALCB, CP #### [facility] [address] [place] [address] Troponin I.cardiac mass conc NOT REPORTED Normal [facility] Comment on above: Performed By: #### C DP, ALCB, CP #### [address] [place] [address] Troponin I.cardiac mass conc ng/mL Normal 0-22 [facility] Comment on above: Result Comment: * New Reference Range and Unit Change * High Sensitivity Troponin values cannot be compared with other Troponin methodologies. Patients with high levels of Biotin oral intake (i.e >5mg/day) may have falsely decreased Troponin levels. Samples collected within 8 hours of biotin intake may require additional information for diagnosis. Performed By: #### C DP, ALCB, CP #### [address] [address] Troponin I.cardiac mass conc NOT REPORTED Normal [facility] Comment on above: Performed By: #### C DP, ALCB, CP #### [address] [address] UA w/Reflex Cultureon 2018 Acetoacetic Acid,Ur TRACE Abnormal NEG [facility] Comment on above: Performed By: #### C DP, ALCB, CP #### [address] [place] [address] Bilirubin.direct mass conc Negative Normal NEG [facility] Comment on above: Performed By: #### C DP, ALCB, CP #### [address] [place] [address] Color Nom (U) YELLOW Normal YEL [facility] Comment on above: Performed By: #### C DP, ALCB, CP #### [facility] [address] [facility] [place] [address] Glucose mass conc Negative Normal NEG [facility] Comment on above: Performed By: #### C DP, ALCB, CP #### [facility] [address] [facility] [place] [address] Hemoglobin mass conc (Bld) TRACE Abnormal NEG [facility] Comment on above: Performed By: #### C DP, ALCB, CP #### [facility] [address] [facility] [place] [address] Leuckocyte Esterase Negative Normal NEG [facility] Comment on above: Performed By: #### C DP, ALCB, CP #### [facility] [address] [facility] [place] [address] Nitrite,Ur Negative Normal NEG [facility] Comment on above: Performed By: #### C DP, ALCB, CP #### [facility] [address] [facility] [address] PH,Ur 6.0 Normal 5.0-8.0 [facility] Comment on above: Performed By: #### C DP, ALCB, CP #### [facility] [address] [facility] [place] [address] Protein mass conc Negative Normal NEG [facility] Comment on above: Performed By: #### C DP, ALCB, CP #### [facility] [address] [facility] [address] Spec. [place],Ur 1.010 Normal 1.000-1.030 [facility] Comment on above: Performed By: #### C DP, ALCB, CP #### [facility] [address] [facility] [place] [address] Turbidity CLEAR Normal CLEAR [facility] Comment on above: Performed By: #### C DP, ALCB, CP #### [facility] [address] [facility] [place] [address] Urobilinogen,Ur Normal Normal NORM [facility] Comment on above: Performed By: #### C DP, ALCB, CP #### [address] [place] [address] Comment NOT REPORTED Normal [facility] Comment on above: Performed By: #### C DP, ALCB, CP #### [address] [place] [address] Ur.Tricyclic Antidepon 04-26 Ur.Tricyclic Antidep Negative Normal NEG [facility] Comment on above: Result Comment: (Positive cutoff 1000 ng/mL) Assay provides rapid clinical screening only. Presumptive positive results for legal purposes should be confirmed by another method. To request confirmation, please call the lab within 7 days of sample submission. Performed By: #### C DP, ALCB, CP #### [address] [address] Urinalysis,Microon 9 ----- Normal [facility] Comment on above: Performed By: #### C DP, ALCB, CP #### [address] [address] Bacteria LM.HPF #/area (Urine sed) None Normal NONE [facility] Comment on above: Performed By: #### C DP, ALCB, CP #### [address] [place] [address] Epithelial cells LM.HPF #/area (Urine sed) 2 TO 5 Normal [facility] Comment on above: Performed By: #### C DP, ALCB, CP #### [address] [address] RBC #/vol (U) 2 TO 5 Normal [facility] Comment on above: Performed By: #### C DP, ALCB, CP #### [facility] [address] [place] [address] WBC #/vol (U) 0 TO 2 Normal [facility] Comment on above: Performed By: #### C DP, ALCB, CP #### [facility] [address] [place] [address] Amorphous sediment LM Ql (Urine sed) NOT REPORTED Normal NONE [facility] Comment on above: Performed By: #### C DP, ALCB, CP #### [facility] [address] [place] [address] Casts LM.LPF #/area (Urine sed) NOT REPORTED Normal [facility] Comment on above: Performed By: #### C DP, ALCB, CP #### [facility] [address] [place] [address] Crystals LM Nom (Urine sed) NOT REPORTED Normal [facility] Comment on above: Performed By: #### C DP, ALCB, CP #### [facility] [address] [place] [address] Epithelial, Renal NOT REPORTED Normal 0 [facility] Comment on above: Performed By: #### C DP, ALCB, CP #### [facility] [address] [place] [address] Mucus Strands NOT REPORTED Normal NONE [facility] Comment on above: Performed By: #### C DP, ALCB, CP #### [facility] [address] [place] [address] Other Observations NOT REPORTED Normal NREQ [facility] Comment on above: Performed By: #### C DP, ALCB, CP #### [facility] [address] [facility] [place] [address] Trichomonas NOT REPORTED Normal NONE [facility] Comment on above: Performed By: #### C DP, ALCB, CP #### [address] [place] [address] Yeast LM Ql (Urine sed) NOT REPORTED Normal NONE [facility] Comment on above: Performed By: #### C DP, ALCB, CP #### [address] [address] Venous Blood Gaseson 019 Body Temp. 37.0 Normal [facility] Comment on above: Performed By: #### C DP, ALCB, CP #### [address] [address] Carboxy Hgb 3.2 % Normal 0-5 [facility] Comment on above: Result Comment: Reference Range: Non-Smokers 0-2% Average Smoker 2-4% Heavy Smoker <10% Performed By: #### C DP, ALCB, CP #### [address] [address] HCO3 molar conc (Bld) 22.2 mmol/L Low 24.0-30.0 [facility] Comment on above: Performed By: #### C DP, ALCB, CP #### [address] [address] Methemoglobin 0.9 % Normal 0.0-1.9 [facility] Comment on above: Performed By: #### C DP, ALCB, CP #### [address] [address] Negative Base Excess 2.6 mmol/L High 0.0-2.0 [facility] Comment on above: Performed By: #### C DP, ALCB, CP #### [facility] [address] [facility] [place] [address] Oxygen ppres (Bld) 174.0 mm[Hg] High 30.0-50.0 [facility] Comment on above: Performed By: #### C DP, ALCB, CP #### [address] [facility] [place] [address] Oxygen saturation in Blood 95.7 % High 60.0-85.0 [facility] Comment on above: Performed By: #### C DP, ALCB, CP #### [address] [place] [address] pCO2 35.9 Low 39.0-55.0 [facility] Comment on above: Performed By: #### C DP, ALCB, CP #### [address] [place] [address] pH (Bld) 7.399 [pH] Normal 7.320-7.420 [facility] Comment on above: Performed By: #### C DP, ALCB, CP #### [address] [place] [address] Laith Test NOT REPORTED Normal [facility] Comment on above: Performed By: #### C DP, ALCB, CP #### [address] [place] [address] FIO2 NOT REPORTED Normal [facility] Comment on above: Performed By: #### C DP, ALCB, CP #### [address] [address] Mode NOT REPORTED Normal [facility] Comment on above: Performed By: #### C DP, ALCB, CP #### [address] [address] Notification Time NOT REPORTED Normal [facility] Comment on above: Performed By: #### C DP, ALCB, CP #### [address] [address] Notification: NOT REPORTED Normal [facility] Comment on above: Performed By: #### C DP, ALCB, CP #### [address] [address] O2 Device/Flow/% NOT REPORTED Normal [facility] Comment on above: Performed By: #### C DP, ALCB, CP #### [address] [address] Oxyhemoglobin NOT REPORTED Normal 95.0-98.0 [facility] Comment on above: Performed By: #### C DP, ALCB, CP #### [address] [address] Pco2 Adj'd for Temp. NOT REPORTED Normal 39.0-55.0 [facility] Comment on above: Performed By: #### C DP, ALCB, CP #### [address] [address] PEEP/CPAP NOT REPORTED Normal [facility] Comment on above: Performed By: #### C DP, ALCB, CP #### [address] [address] pH Adjst'd for Temp. NOT REPORTED Normal 7.320-7.420 [facility] Comment on above: Performed By: #### C DP, ALCB, CP #### [address] [address] pO2 Adj'd for Temp. NOT REPORTED Normal 30.0-50.0 [facility] Comment on above: Performed By: #### C DP, ALCB, CP #### [facility] [address] [facility] [place] [address] Positive Base Excess NOT REPORTED Normal 0.0-2.0 [facility] Comment on above: Performed By: #### C DP, ALCB, CP #### [facility] [address] [facility] [place] [address] PSV NOT REPORTED Normal [facility] Comment on above: Performed By: #### C DP, ALCB, CP #### [facility] [address] [facility] [place] [address] Pt. Position NOT REPORTED Normal [facility] Comment on above: Performed By: #### C DP, ALCB, CP #### [facility] [address] [facility] [place] [address] Set Rate NOT REPORTED Normal [facility] Comment on above: Performed By: #### C DP, ALCB, CP #### [facility] [address] [facility] [place] [address] Site Drawn NOT REPORTED Normal [facility] Comment on above: Performed By: #### C DP, ALCB, CP #### [facility] [address] [facility] [place] [address] Text for Respiratory NOT REPORTED Normal [facility] Comment on above: Performed By: #### C DP, ALCB, CP #### [facility] [address] [facility] [place] [address] Total Hb NOT REPORTED Normal 12.0-16.0 [facility] Comment on above: Performed By: #### C DP, ALCB, CP #### [facility] [address] [facility] [place] [address] Total Rate NOT REPORTED Normal [facility] Comment on above: Performed By: #### C DP, ALCB, CP #### [facility] [address] [facility] [place] [address] VT NOT REPORTED Normal [facility] Comment on above: Performed By: #### C DP, ALCB, CP #### [facility] [address] [facility] [place] [address] XR CHEST PORTABLEon 04-26-19 XR CHEST PORTABLE EXAMINATION: SINGLE XRAY VIEW OF THE CHEST 2018 3:07 pm COMPARISON: None. HISTORY: ORDERING SYSTEM PROVIDED HISTORY: overdose TECHNOLOGIST PROVIDED HISTORY: overdose Ordering Physician Provided Reason for Exam: overdose Acuity: Acute Type of Exam: Initial FINDINGS: There is no acute consolidation or effusion. There is no pneumothorax. The mediastinal structures are unremarkable. The upper abdomen is unremarkable. The extrathoracic soft tissues are unremarkable. There is no acute osseous abnormality. IMPRESSION: No acute cardiopulmonary process. Interpreted by: Charly Mojica MD Signed by: Charly Mojica MD 04/26/18 Final result Normal [facility] Hemoglobin A1Con 03-06-2018 Hemoglobin A1c/Hemoglobin.total mass fraction (Bld) 4.9 % Normal 4.0-6.0 [facility] Comment on above: Performed By: #### F T4, LIPR, TSH #### [address] [place] [address] #### GLYHGB #### [address] [address] Hemoglobin A1c/Hemoglobin.total mass fraction (Bld) 94 mg/dL Normal [facility] Comment on above: Result Comment: The ADA and AACC recommend providing the estimated average glucose result to permit better patient understanding of their HBA1c result. Performed By: #### F T4, LIPR, TSH #### [address] [address] #### GLYHGB #### [address] [address] Lipid Profileon 03-06-2018 Cholesterol in HDL mass conc 35 mg/dL Low >40 [facility] Comment on above: Result Comment: HDL Guidelines: <40 Undesirable 40-59 Borderline >59 Desirable Performed By: #### F T4, LIPR, TSH #### [facility] [address] [place] [address] #### GLYHGB #### [address] [address] Cholesterol in LDL mass conc 81 mg/dL Normal 0-130 [facility] Comment on above: Result Comment: LDL Guidelines: <100 Desirable 100-129 Near to/above Desirable 130-159 Borderline >159 Undesirable Direct (measured) LDL and calculated LDL are not interchangeable tests. Performed By: #### F T4, LIPR, TSH #### [address] [place] [address] #### GLYHGB #### [address] [address] Cholesterol mass conc 133 mg/dL Normal <200 [facility] Comment on above: Result Comment: Cholesterol Guidelines: <200 Desirable 200-240 Borderline >240 Undesirable Performed By: #### F T4, LIPR, TSH #### [facility] [address] [place] [address] #### GLYHGB #### [address] [address] Cholesterol.total/Cho lesterol in HDL mass ratio 3.8 {ratio} Normal <5 [facility] Comment on above: Performed By: #### F T4, LIPR, TSH #### [facility] [address] [place] [address] #### GLYHGB #### [address] [address] Triglyceride mass conc 86 mg/dL Normal <150 [facility] Comment on above: Result Comment: Triglyceride Guidelines: <150 Desirable 150-199 Borderline 200-499 High >499 Very high Based on AHA Guidelines for fasting triglyceride, January 2012. Performed By: #### F T4, LIPR, TSH #### [address] [place] [address] #### GLYHGB #### [address] [address] Cholesterol in VLDL mass conc NOT REPORTED Normal 05-15 [facility] Comment on above: Performed By: #### F T4, LIPR, TSH #### [address] [address] #### GLYHGB #### [address] [address] Thyroid Stim. Horm.on 2017 Thyrotropin Qn m[IU]/L Low 0.30-5.00 [facility] Comment on above: Performed By: #### F T4, LIPR, TSH #### [address] [address] #### GLYHGB #### [address] [address] Thyroxine, Freeon 03-06-2018 Thyroxine, Free 3.49 ng/dL High 0.93-1.70 [facility] Comment on above: Performed By: #### F T4, LIPR, TSH #### [address] [address] #### GLYHGB #### [address] [address] CBC with Diffon 03-04-2018 Abs. Basophil 0.00 k/uL Normal 0.0-0.2 [facility] Comment on above: Performed By: #### C DP, ALCB, CP #### [facility] [address] [facility] [place] [address] Abs.Neutrophil (Seg) 3.50 k/uL Normal 1.3-9.1 [facility] Comment on above: Performed By: #### C DP, ALCB, CP #### [address] [facility] [place] [address] Basophils/100 WBC (Bld) 1 % Normal 0-2 [facility] Comment on above: Performed By: #### C DP, ALCB, CP #### [address] [address] Eosinophils #/vol (Bld) 0.00 10*3/uL Normal 0.0-0.4 [facility] Comment on above: Performed By: #### C DP, ALCB, CP #### [address] [address] Eosinophils/100 WBC (Bld) 0 % Normal 0-4 [facility] Comment on above: Performed By: #### C DP, ALCB, CP #### [address] [place] [address] Erythrocyte distribution width Ratio (RBC) 12.3 % Normal 11.5-14.9 [facility] Comment on above: Performed By: #### C DP, ALCB, CP #### [address] [address] Hematocrit Volume Fraction (Bld) 39.8 % Low 41-53 [facility] Comment on above: Performed By: #### C DP, ALCB, CP #### [address] [address] Hemoglobin mass conc (Bld) 13.4 g/dL Low 13.5-17.5 [facility] Comment on above: Performed By: #### C DP, ALCB, CP #### [facility] [address] [facility] [place] [address] Lymphocytes #/vol (Bld) 3.10 10*3/uL Normal 1.2-5.2 [facility] Comment on above: Performed By: #### C DP, ALCB, CP #### [address] [facility] [place] [address] Lymphocytes/100 WBC (Bld) 43 % Normal 25-45 [facility] Comment on above: Performed By: #### C DP, ALCB, CP #### [address] [address] MCH Entitic mass (RBC) 28.7 pg Normal 26-34 [facility] Comment on above: Performed By: #### C DP, ALCB, CP #### [address] [address] MCHC mass conc (RBC) 33.7 g/dL Normal 31-37 [facility] Comment on above: Performed By: #### C DP, ALCB, CP #### [address] [place] [address] MCV Entitic volume (RBC) 85.2 fL Normal 80-100 [facility] Comment on above: Performed By: #### C DP, ALCB, CP #### [address] [address] Monocytes #/vol (Bld) 0.60 10*3/uL Normal 0.1-1.3 M [facility] Comment on above: Performed By: #### C DP, ALCB, CP #### [address] [address] Monocytes/100 WBC (Bld) 9 % High 2-8 [facility] Comment on above: Performed By: #### C DP, ALCB, CP #### [facility] [address] [place] [address] Neutrophil (Seg) 47 % Normal 34-64 [facility] Comment on above: Performed By: #### C DP, ALCB, CP #### [facility] [address] [place] [address] Platelet mean volume Entitic volume (Bld) 7.0 fL Normal 6.0-12.0 [facility] Comment on above: Performed By: #### C DP, ALCB, CP #### [address] [address] Platelets #/vol (Bld) 267 10*3/uL Normal 150-450 [facility] Comment on above: Performed By: #### C DP, ALCB, CP #### [address] [address] RBC #/vol (Bld) 4.67 10*6/uL Normal 4.5-5.9 [facility] Comment on above: Performed By: #### C DP, ALCB, CP #### [address] [address] WBC #/vol (Bld) 7.3 10*3/uL Normal 4.5-13.5 [facility] Comment on above: Performed By: #### C DP, ALCB, CP #### [address] [place] [address] Abs.Imm.Granulocyte NOT REPORTED Normal 0.00-0.30 [facility] Comment on above: Performed By: #### C DP, ALCB, CP #### [address] [address] Auto Diff Performed NOT REPORTED Normal [facility] Comment on above: Performed By: #### C DP, ALCB, CP #### [facility] [address] [place] [address] Immature granulocytes #/vol (Bld) NOT REPORTED Normal 0 [facility] Comment on above: Performed By: #### C DP, ALCB, CP #### [address] [place] [address] NRBC Automated NOT REPORTED Normal [facility] Comment on above: Performed By: #### C DP, ALCB, CP #### [address] [place] [address] Platelets #/vol (Bld) NOT REPORTED Normal [facility] Comment on above: Performed By: #### C DP, ALCB, CP #### [address] [address] RBC morphology finding Nom (Bld) NOT REPORTED Normal [facility] Comment on above: Performed By: #### C DP, ALCB, CP #### [address] [address] WBC Morphology NOT REPORTED Normal [facility] Comment on above: Performed By: #### C DP, ALCB, CP #### [address] [address] Comp Metabolic Profon 2017 (cont.) Normal [facility] Comment on above: Result Comment: Aver age GFR for <20 years old not available. Chronic Kidney Disease: <60 mL/min/1.73sq m Kidney failure: <15 mL/min/1.73sq m eGFR calculated using average adult body mass. Additional eGFR calculator available at: http://www.[employer]/multiple_crcl_2012.htm Performed By: #### C DP, ALCB, CP #### [address] [facility] [place] [address] Albumin mass conc 4.5 g/dL Normal 3.5-5.2 [facility] Comment on above: Performed By: #### C DP, ALCB, CP #### [facility] [address] [place] [address] Alkaline Phos 171 U/L High 40-129 [facility] Comment on above: Performed By: #### C DP, ALCB, CP #### [facility] [address] [facility] [place] [address] ALT enzyme act/vol 34 U/L Normal 5-41 [facility] Comment on above: Performed By: #### C DP, ALCB, CP #### [address] [facility] [place] [address] Anion gap molar conc 10 mmol/L Normal 9-17 [facility] Comment on above: Performed By: #### C DP, ALCB, CP #### [address] [facility] [place] [address] AST enzyme act/vol 18 U/L Normal <40 [facility] Comment on above: Performed By: #### C DP, ALCB, CP #### [facility] [facility] [address] [facility] [place] [address] Bilirubin Ql (U) 0.32 mg/dL Normal 0.3-1.2 [facility] Comment on above: Performed By: #### C DP, ALCB, CP #### [id number] [facility] [place] [address] Calcium mass conc 10.0 mg/dL Normal 8.6-10.4 [facility] Comment on above: Performed By: #### C DP, ALCB, CP #### [place] [id number] [facility] [place] [address] Chloride molar conc 103 mmol/L Normal 98-107 [facility] Comment on above: Performed By: #### C DP, ALCB, CP #### [facility] [address] [facility] [place] [address] CO2 molar conc 28 mmol/L Normal 20-31 [facility] Comment on above: Performed By: #### C DP, ALCB, CP #### [facility] [address] [facility] [place] [address] Creatinine mass conc 0.64 mg/dL Low 0.70-1.20 [facility] Comment on above: Performed By: #### C DP, ALCB, CP #### [address] [place] [address] GFR,non Amer Pediatric GFR requi res additional information. Refer to NKDEP website for Normal >60 [facility] Comment on above: Result Comment: calc ulator. Performed By: #### C DP, ALCB, CP #### [facility] [address] [facility] [place] [address] Glucose mass conc 99 mg/dL Normal 70-99 [facility] Comment on above: Performed By: #### C DP, ALCB, CP #### [facility] [address] [facility] [place] [address] Potassium molar conc 3.9 mmol/L Normal 3.7-5.3 [facility] Comment on above: Performed By: #### C DP, ALCB, CP #### [place] [id number] [facility] [place] [address] Protein mass conc 6.8 g/dL Normal 6.4-8.3 [facility] Comment on above: Performed By: #### C DP, ALCB, CP #### [address] [address] Sodium molar conc 141 mmol/L Normal 135-144 [facility] Comment on above: Performed By: #### C DP, ALCB, CP #### [facility] [address] [facility] [place] [address] Urea nitrogen mass conc 9 mg/dL Normal 6-20 [facility] Comment on above: Performed By: #### C DP, ALCB, CP #### [facility] [address] [place] [address] Albumin/Globulin mass ratio NOT REPORTED Normal 1.0-2.5 [facility] Comment on above: Performed By: #### C DP, ALCB, CP #### [facility] [address] [place] [address] BUN/CRE Ratio NOT REPORTED Normal 9-20 [facility] Comment on above: Performed By: #### C DP, ALCB, CP #### [facility] [address] [place] [address] GFR, Amer NOT REPORTED Normal >60 [facility] Comment on above: Performed By: #### C DP, ALCB, CP #### [facility] [address] [place] [address] Staging: NOT REPORTED Normal [facility] Comment on above: Performed By: #### C DP, ALCB, CP #### [facility] [address] [place] [address] Ethanol Alcoholon 03-04-2018 Ethanol mass conc mg/dL Normal <10 [facility] Comment on above: Performed By: #### C DP, ALCB, CP #### [facility] [address] [place] [address] Ethanol percent <0.010 Normal [facility] Comment on above: Performed By: #### C DP, ALCB, CP #### [facility] [address] [place] [address] Vital Signs Date Time Vital Sign Value Performing Clinician [facility] 02-10-2025 11:07-0400 Body mass index (BMI) [Ratio] 32.6 kg/m2 Charles Sequeira MD Work Phone: [facility] 02-10-2025 11:07-0400 Body weight 91.63 kg Charles Sequeira MD Work Phone: [facility] 02-10-2025 11:07-0400 Diastolic blood pressure 78 mm[Hg] Charles Sequeira MD Work Phone: [facility] 02-10-2025 11:07-0400 Heart rate 92 /min Charles Sequeira MD Work Phone: [facility] 02-10-2025 11:07-0400 Systolic blood pressure 111 mm[Hg] Charles Sequeira MD Work Phone: [facility] 12-25-2024 14:42-0400 Body mass index (BMI) [Ratio] 31.96 kg/m2 Charles Sequeira MD Work Phone: [facility] 12-25-2024 14:42-0400 Body weight 89.81 kg Charles Sequeira MD Work Phone: [facility] 12-25-2024 14:42-0400 Diastolic blood pressure 73 mm[Hg] Charles Sequeira MD Work Phone: [facility] 12-25-2024 14:42-0400 Heart rate 81 /min Charles Sequeira MD Work Phone: [facility] 12-25-2024 14:42-0400 SaO2% (BldA) [Mass fraction] 94 % Charles Sequeira MD Work Phone: [facility] 12-25-2024 14:42-0400 Systolic blood pressure 104 mm[Hg] Charles Sequeira MD Work Phone: [facility] 10-23-2024 07:47-0400 Diastolic blood pressure 77 mm[Hg] Charles Sequeira MD Work Phone: [facility] 10-23-2024 07:47-0400 Heart rate 80 /min Charles Sequeira MD Work Phone: [facility] 10-23-2024 07:47-0400 Systolic blood pressure 111 mm[Hg] Charles Sequeira MD Work Phone: [facility] 09-10-2024 10:32-0400 Body mass index (BMI) [Ratio] 31.78 kg/m2 Charles Sequeira MD Work Phone: [facility] 09-10-2024 10:32-0400 Body weight 89.31 kg Charles Sequeira MD Work Phone: [facility] 09-10-2024 10:32-0400 Diastolic blood pressure 76 mm[Hg] Charles Sequeira MD Work Phone: [facility] 09-10-2024 10:32-0400 Heart rate 118 /min Charles Sequeira MD Work Phone: [facility] 09-10-2024 10:32-0400 Systolic blood pressure 107 mm[Hg] Charles Sequeira MD Work Phone: [facility] 05-15-2024 14:13-0500 Body mass index (BMI) [Ratio] 31.73 kg/m2 Charles Sequeira MD Work Phone: [facility] 05-15-2024 14:13-0500 Body weight 89.18 kg Charles Sequeira MD Work Phone: [facility] 05-15-2024 14:13-0500 Diastolic blood pressure 72 mm[Hg] Charles Sequeira MD Work Phone: [facility] 05-15-2024 14:13-0500 Heart rate 82 /min Charles Sequeira MD Work Phone: [facility] 05-15-2024 14:13-0500 Systolic blood pressure 102 mm[Hg] Charles Sequeira MD Work Phone: [facility] 04-01-2024 14:05-0500 Body mass index (BMI) [Ratio] 30.2 kg/m2 Charles Sequeira MD Work Phone: [facility] 04-01-2024 14:05-0500 Body weight 84.87 kg Charles Sequeira MD Work Phone: [facility] 04-01-2024 14:05-0500 Diastolic blood pressure 86 mm[Hg] Charles Sequeira MD Work Phone: [facility] 04-01-2024 14:05-0500 Heart rate 102 /min Charles Sequeira MD Work Phone: [facility] 04-01-2024 14:05-0500 Systolic blood pressure 121 mm[Hg] Charles Sequeira MD Work Phone: [facility] 12-12-2023 08:47-0400 Body mass index (BMI) [Ratio] 29.15 kg/m2 Leopoldo Aidee BURNS Work Phone: [facility] 12-12-2023 08:47-0400 Body weight 81.92 kg Leopoldo Hoskins COMPLAINT INVESTIGATIONS OFFICER Work Phone: [facility] 10-31-2023 13:22-0400 Body mass index (BMI) [Ratio] 28.58 kg/m2 Leopoldo Aidee BURNS Work Phone: [facility] 10-31-2023 13:22-0400 Body weight 80.33 kg Leopoldoaicha Hoskins COMPLAINT INVESTIGATIONS OFFICER Work Phone: [facility] 10-31-2023 13:22-0400 Diastolic blood pressure 86 mm[Hg] Leopoldo Hoskins CNP Work Phone: [facility] 10-31-2023 13:22-0400 Heart rate 82 /min Leopoldo Hoskins CNP Work Phone: [facility] 10-31-2023 13:22-0400 Systolic blood pressure 134 mm[Hg] Leopoldo Hoskins CNP Work Phone: [facility] 08-24-2023 14:46-0400 Body temperature 97.3 [degF] Shady Geris DO Work Phone: [facility] 08-24-2023 14:46-0400 Diastolic blood pressure 75 mm[Hg] Shady Geris DO Work Phone: [facility] 08-24-2023 14:46-0400 Heart rate 92 /min Shady Geris DO Work Phone: [facility] 08-24-2023 14:46-0400 Respiratory rate 18 /min Shady Geris DO Work Phone: [facility] 08-24-2023 14:46-0400 SaO2% (BldA) [Mass fraction] 97 % Shady Geris DO Work Phone: [facility] 08-24-2023 14:46-0400 Systolic blood pressure 142 mm[Hg] Shady Geris DO Work Phone: [facility] 08-21-2023 18:00-0400 Body height 170.2 cm Rajidy Geris DO Work Phone: [facility] 08-21-2023 18:00-0400 Body mass index (BMI) [Ratio] 18.79 kg/m2 Rajidy Geris DO Work Phone: [facility] 08-21-2023 18:00-0400 Body weight 54.43 kg Shady Geris DO Work Phone: [facility] 03-29-2023 08:23-0500 Body temperature 97.3 [degF] Damir Viki MVA STILL OPERATOR-COMPLAINT INVESTIGATIONS OFFICER Work Phone: [facility] 03-29-2023 08:23-0500 Diastolic blood pressure 75 mm[Hg] Damir Viki MVA STILL OPERATOR-COMPLAINT INVESTIGATIONS OFFICER Work Phone: [facility] 03-29-2023 08:23-0500 Heart rate 129 /min Damir Viki MVA STILL OPERATOR-COMPLAINT INVESTIGATIONS OFFICER Work Phone: [facility] 03-29-2023 08:23-0500 Respiratory rate 18 /min Damir Viki MVA STILL OPERATOR-COMPLAINT INVESTIGATIONS OFFICER Work Phone: [facility] 03-29-2023 08:23-0500 SaO2% (BldA) [Mass fraction] 96 % Damir Elliott MVA STILL OPERATOR-COMPLAINT INVESTIGATIONS OFFICER Work Phone: [facility] 03-29-2023 08:23-0500 Systolic blood pressure 118 mm[Hg] Damir Viki MVA STILL OPERATOR-COMPLAINT INVESTIGATIONS OFFICER Work Phone: [facility] 11-01-2021 12:10-0400 Body height 170.2 cm Shewanna Marks MVA STILL OPERATOR.COMPLAINT INVESTIGATIONS OFFICER Work Phone: [facility] 11-01-2021 12:10-0400 Body temperature 98.4 [degF] Shewanna Marks MVA STILL OPERATOR.COMPLAINT INVESTIGATIONS OFFICER Work Phone: [facility] 11-01-2021 12:10-0400 Body weight 60.78 kg Shewanna Marks MVA STILL OPERATOR.COMPLAINT INVESTIGATIONS OFFICER Work Phone: [facility] 11-01-2021 12:10-0400 Diastolic blood pressure 91 mm[Hg] Shewanna Marks MVA STILL OPERATOR.COMPLAINT INVESTIGATIONS OFFICER Work Phone: [facility] 11-01-2021 12:10-0400 Heart rate 116 /min Shewanna Marks MVA STILL OPERATOR.COMPLAINT INVESTIGATIONS OFFICER Work Phone: [facility] 11-01-2021 12:10-0400 Respiratory rate 16 /min Shewanna Marks MVA STILL OPERATOR.COMPLAINT INVESTIGATIONS OFFICER Work Phone: [facility] 11-01-2021 12:10-0400 SaO2% (BldA) [Mass fraction] 99 % Shewanna Marks MVA STILL OPERATOR.COMPLAINT INVESTIGATIONS OFFICER Work Phone: [facility] 11-01-2021 12:10-0400 Systolic blood pressure 124 mm[Hg] Shewanna Marks MVA STILL OPERATOR.COMPLAINT INVESTIGATIONS OFFICER Work Phone: [facility] 10-02-2021 17:39-0400 SaO2% (BldA) [Mass fraction] 99 % [facility] Work Phone: 10-02-2021 17:18-0400 Body height 170.18 cm [facility] Work Phone: 10-02-2021 17:18-0400 Body mass index (BMI) [Ratio] 18.1 kg/m2 [facility] Work Phone: 10-02-2021 17:18-0400 Body temperature 98.1 [degF] [facility] Work Phone: 10-02-2021 17:18-0400 Body weight 52.7 kg [facility] Work Phone: 10-02-2021 17:18-0400 Diastolic blood pressure 87 mm[Hg] [facility] Work Phone: 10-02-2021 17:18-0400 Heart rate 104 /min [facility] Work Phone: 10-02-2021 17:18-0400 Respiratory rate 16 /min [facility] Work Phone: 10-02-2021 17:18-0400 Systolic blood pressure 127 mm[Hg] [facility] Work Phone: 08-24-2021 20:31-0400 Body height 170.18 cm [facility] Work Phone: 08-24-2021 20:31-0400 Body mass index (BMI) [Ratio] 22.8 kg/m2 [facility] Work Phone: 08-24-2021 20:31-0400 Body temperature 98 [degF] [facility] Work Phone: 08-24-2021 20:31-0400 Body weight 66 kg [facility] Work Phone: 08-24-2021 20:31-0400 Diastolic blood pressure 70 mm[Hg] [facility] Work Phone: 08-24-2021 20:31-0400 Heart rate 78 /min [facility] Work Phone: 05-11-2022 20:31-0400 Respiratory rate 20 /min [facility] Work Phone: 08-24-2021 20:31-0400 SaO2% (BldA) [Mass fraction] 98 % [facility] Work Phone: 08-24-2021 20:31-0400 Systolic blood pressure 119 mm[Hg] [facility] Work Phone: 02-26-2020 13:22-0500 BMI (Body Mass Index) 26 kg/m2 Cindy Nieto [facility] 02-26-2020 [id number] Body weight 75.3 kg Cindy Nieto [facility] 02-26-2020 13:22-0500 BP Diastolic 87 mm[Hg] Cindy Nieto [facility] 02-26-2020 13:22-0500 BP Systolic 133 mm[Hg] Cindy Nieto [facility] 02-26-2020 13:22-0500 Height 170.2 cm Cindy Nieto [facility] 02-26-2020 13:22-0500 Pulse (Heart Rate) 101 /min Cindy Nieto [facility] 01-14-2020 13:25-0400 BP Diastolic 86 mm[Hg] Cindy Nieto [facility] 01-14-2020 13:25-0400 BP Systolic 126 mm[Hg] Cindy Nieto [facility] 01-14-2020 13:25-0400 Pulse (Heart Rate) 116 /min Cindy Nieto [facility] 01-14-2020 13:17-0400 BMI (Body Mass Index) 26.55 kg/m2 Cindy Nieto [facility] 01-14-2020 13:17-0400 Body weight 76.89 kg Cindy Nieto [facility] 01-05-2020 16:01-0400 Body Temperature 98.29 [degF] [facility] 01-05-2020 16:01-0400 BP Diastolic 70 mm[Hg] [facility] 01-05-2020 16:01-0400 BP Systolic 123 mm[Hg] [facility] 01-05-2020 16:01-0400 Pulse (Heart Rate) 110 /min [facility] 01-05-2020 16:01-0400 Pulse Oximetry 93 % [facility] 01-05-2020 16:01-0400 Respiratory Rate 14 /min [facility] 12-26-2019 22:53-0400 BMI (Body Mass Index) 23.18 kg/m2 [facility] 12-26-2019 22:53-0400 Body weight 67.13 kg [facility] 12-26-2019 22:53-0400 Height 170.2 cm [facility] 12-18-2019 07:32-0400 Body Temperature 98.01 [degF] [facility] 12-18-2019 07:32-0400 BP Diastolic 60 mm[Hg] [facility] 12-18-2019 07:32-0400 BP Systolic 95 mm[Hg] [facility] 12-18-2019 07:32-0400 Pulse (Heart Rate) 73 /min [facility] 12-18-2019 07:32-0400 Pulse Oximetry 96 % [facility] 12-18-2019 07:32-0400 Respiratory Rate 16 /min [facility] 11-22-2019 22:14-0400 BMI (Body Mass Index) 21.74 kg/m2 [facility] 11-22-2019 22:14-0400 Body weight 62.96 kg [facility] 11-22-2019 22:14-0400 Height 170.2 cm [facility] 11-22-2019 19:45-0400 Body Temperature 98.01 [degF] [facility] 11-22-2019 19:45-0400 BP Diastolic 73 mm[Hg] [facility] 11-22-2019 19:45-0400 BP Systolic 120 mm[Hg] [facility] 11-22-2019 19:45-0400 Pulse (Heart Rate) 107 /min [facility] 11-22-2019 19:45-0400 Pulse Oximetry 95 % [facility] 11-22-2019 19:45-0400 Respiratory Rate 18 /min [facility] 11-20-2019 16:30-0400 BMI (Body Mass Index) 21.08 kg/m2 [facility] 11-20-2019 16:30-0400 Body weight 61.05 kg [facility] 11-20-2019 16:30-0400 Height 170.2 cm [facility] 11-19-2019 12:00-0400 Body Temperature 97.9 [degF] [facility] 11-19-2019 08:15-0400 Pulse Oximetry 99 % [facility] 11-19-2019 07:51-0400 BP Diastolic 79 mm[Hg] [facility] 11-19-2019 07:51-0400 BP Systolic 128 mm[Hg] [facility] 11-19-2019 07:51-0400 Pulse (Heart Rate) 70 /min [facility] 11-19-2019 07:51-0400 Respiratory Rate 16 /min [facility] 11-12-2019 20:27-0400 BMI (Body Mass Index) 20.99 kg/m2 [facility] 11-12-2019 20:27-0400 Body weight 60.78 kg [facility] 11-12-2019 20:27-0400 Height 170.2 cm [facility] 11-06-2019 06:30-0400 BP Diastolic 57 mm[Hg] [facility] 11-06-2019 06:30-0400 BP Systolic 111 mm[Hg] [facility] 11-06-2019 05:00-0400 Pulse Oximetry 97 % [facility] 11-06-2019 04:57-0400 Body Temperature 98.01 [degF] [facility] 11-06-2019 04:57-0400 Pulse (Heart Rate) 113 /min [facility] 11-06-2019 04:57-0400 Respiratory Rate 16 /min [facility] 10-30-2019 16:00-0400 Body Temperature 97.3 [degF] [facility] 07:42-0400 BP Diastolic 81 mm[Hg] [facility] 10-30-2019 07:42-0400 BP Systolic 104 mm[Hg] [facility] 10-30-2019 07:42-0400 Pulse (Heart Rate) 116 /min [facility] 10-30-2019 07:42-0400 Pulse Oximetry 97 % [facility] 10-30-2019 07:42-0400 Respiratory Rate 20 /min [facility] 10-20-2019 04:00-0400 BMI (Body Mass Index) 20.37 kg/m2 [facility] 10-20-2019 04:00-0400 Body weight 59 kg [facility] 10-20-2019 04:00-0400 Height 170.2 cm [facility] 06-04-2019 12:00-0500 Pulse Oximetry 98 % [place] 06-04-2019 12:00-0500 Respiratory Rate 16 /min [place] 06-04-2019 11:55-0500 Body Temperature 98.2 [degF] [place] 06-04-2019 08:23-0500 BP Diastolic 61 mm[Hg] [place] 06-04-2019 08:23-0500 BP Systolic 107 mm[Hg] [place] 06-04-2019 08:23-0500 Pulse (Heart Rate) 109 /min [place] 06-03-2019 10:01-0500 BMI (Body Mass Index) 21.61 kg/m2 [place] 06-03-2019 10:01-0500 Body weight 62.6 kg [place] 06-03-2019 10:01-0500 Height 170.2 cm [place], [place] 2018 17:23-0500 Respiratory rate NOT REPORTED [facility] Comment on above: Performed By: #### CDP, DAVIDB, CP #### [facility] [address] [place] [address] Encounters Encounter Date Encounter Type Care Provider Facility Start: 02-10-2025 End: 02-10-[address] [facility] Start: 02-10-2025 End: 02-10-2025 Office outpatient visit 15 minutes Charles Sequeira MD Work Phone: [facility] Comment on above: Graves disease (Prim arvin Dx) Start: 12-25-2024 End: 12-25-2024 ambulatory CHARLES ADLY CHARLES ADLY [facility] Start: 12-25-2024 End: 12-25-2024 Office outpatient visit 15 minutes Charles Sequeira MD Work Phone: [facility] Comment on above: Graves disease (Prim arvin Dx); Hyperthyroidism Start: 11-12-2024 ambulatory CHARLES ADLY CHARLES ADLY [facility] Start: 10-23-2024 End: 10-23-2024 Office outpatient visit 15 minutes Charles Sequeira MD Work Phone: [facility] Comment on above: Graves disease (Prim arvin Dx) Start: 10-23-2024 End: 10-23-2024 ambulatory CHARLES ADLY CHARLES ADLY [facility] Start: 10-08-2024 ambulatory CHARLES ADLY CHARLES ADLY [facility] Start: 09-10-2024 End: 09-10-2024 Office outpatient visit 25 minutes Charles Sequeira MD Work Phone: [facility] Comment on above: Graves disease (Prim arvin Dx) Start: 09-10-2024 End: 09-10-2024 ambulatory CHARLES ADLY CHARLES ADLY [facility] Start: 06-23-2024 ambulatory CHARLES ADLY CHARLES ADLY [facility] Start: 05-15-2024 End: 05-15-2024 Office outpatient visit 15 minutes Charles Sequeira MD Work Phone: [facility] Comment on above: Graves disease (Prim arvin Dx) Start: 05-15-2024 End: 05-15-2024 ambulatory CHARLES ADLY CHARLES ADLY [facility] Start: 05-14-2024 ambulatory Amadeo Silver Facility: [facility] Start: 05-14-2024 End: 05-14-2024 ambulatory Chino Efraín Facility:[facility] Start: 05-08-2024 End: 05-08-2024 Refill Charles Sequeira MD Work Phone: [facility] Comment on above: Graves disease (Prim arvin Dx) Start: 04-23-2024 End: 04-23-2024 ambulatory Amadeo Silver Facility:[facility] Start: 04-18-2024 End: 04-18-2024 Documentation procedure Leopoldo Hoskins CNP Work Phone: [facility] Start: 04-14-2024 [facility] Start: 04-01-2024 End: 04-01-2024 ambulatory AMADEO SILVER [facility] Amb[facility]ato ry Start: 04-01-2024 End: 04-01-2024 Office outpatient visit 25 minutes Charles Sequeira MD Work Phone: [facility] Comment on above: Graves disease (Prim arvin Dx) Start: 03-20-2024 [facility] Start: 12-12-2023 End: 12-16-2023 ambulatory AMADEO SILVER [facility] Start: 12-12-2023 End: 12-12-2023 Office outpatient visit 25 minutes Leopoldo Hoskins CNP Work Phone: [facility] Comment on above: Hyperthyroidism (Mana anton Dx); Graves disease Start: 11-01-2023 End: 11-02-2023 Orders Only Leopoldo Hoskins CNP Work Phone: [facility] Comment on above: Hyperthyroidism (Mana anton Dx); Graves disease Start: 10-31-2023 End: 11-04-2023 ambulatory PHYSICIAN [facility] Start: 10-31-2023 End: 10-31-2023 Office outpatient visit 25 minutes Leopoldo Hoskins CNP Work Phone: [facility] Comment on above: Hyperthyroidism (Mana anton Dx); Graves disease Start: 10-04-2023 Orders Only Leopoldo correa COMPLAINT INVESTIGATIONS OFFICER Work Phone: [facility] Comment on above: Hyperthyroidism (Mana anton Dx) Start: 09-25-2023 Refill Nyasia Agosto MD Work Phone: [facility] Start: 08-20-2023 End: 08-24-2023 Evaluation and management of inpatient Mauro Keys MD Work Phone: [facility] Start: 03-29-2023 End: 03-29-2023 Emergency department patient visit UNKNOWN PROVIDER Facility:[facility] Start: 03-29-2023 End: 03-29-2023 Emergency department patient visit Damir Viki MVA STILL OPERATOR-COMPLAINT INVESTIGATIONS OFFICER Work Phone: [facility] Comment on above: Knee symptoms/compla ints (L knee pain x1 day) Start: 03-29-2023 End: 03-29-2023 Emergency department patient visit UNKNOWN PROVIDER Facility:[facility] Start: 11-01-2021 End: 11-01-2021 Patient encounter procedure Fred Selina MVA STILL OPERATOR.COMPLAINT INVESTIGATIONS OFFICER Work Phone: [facility] Comment on above: Primary hypertension (Primary Dx); Depression, unspecified depression type; Other specified hypothyroidism Start: 10-02-2021 End: 10-02-2021 Emergency department patient visit [facility] Start: 08-24-2021 End: 08-24-2021 Emergency department patient visit [facility] Start: 06-20-2021 End: 06-28-2021 Evaluation and management of inpatient [facility] Start: 02-26-2020 End: 02-26-2020 Office outpatient visit 15 minutes Cindy Nieto Work Phone: [facility] Comment on above: Graves disease (Prim arvin Dx); Danilo's thyroiditis Start: 01-14-2020 End: 01-14-2020 Office outpatient visit 15 minutes Cindy Nieto Work Phone: [facility] Endocrinology Physicians Comment on above: Graves disease (Prim arvin Dx); Danilo's thyroiditis Start: 12-26-2019 End: 01-05-2020 Evaluation and management of inpatient Valerie Shields Work Phone: [facility] Med Surg Oncology Comment on above: Non-traumatic rhabdo myolysis (Primary Dx); Schizophrenia, unspecified type (HCC); Hyperthyroidism Start: 11-22-2019 End: 12-18-2019 Evaluation and management of inpatient Carlos Chung Work Phone: [facility] Behavioral Health Start: 11-20-2019 End: 11-22-2019 Evaluation and management of inpatient Jay Torres Work Phone: [facility] Med Surg Comment on above: Thyrotoxicosis with thyrotoxic crisis, unspecified thyrotoxicosis type (Primary Dx); Psychotic episode (HCC); Methamphetamine abuse (HCC) Start: 11-12-2019 End: 11-19-2019 Evaluation and management of inpatient Manolo Le Work Phone: [facility] Behavioral Health Comment on above: Schizoaffective diso rder, bipolar type (HCC) (Primary Dx) Start: 11-06-2019 End: 11-06-2019 Emergency department patient visit Valerie Shields Work Phone: [facility] Emergency Department Comment on above: Dehydration (Primary Dx) Start: 10-19-2019 End: 10-30-2019 Evaluation and management of inpatient Nacho Caro Work Phone: [facility] Behavioral Health Comment on above: Other schizophrenia (HCC) (Primary Dx); Hyperthyroidism Start: 06-03-2019 End: 06-04-2019 Evaluation and management of inpatient SANDOR HOLM [facility] Start: 06-03-2019 End: 06-04-2019 Evaluation and management of inpatient Khadijah Kruger Work Phone: [address] Onc/Med Surg Comment on above: Pneumonia due to org anism (Primary Dx); Fever, unspecified fever cause Start: 11-01-2018 End: 11-01-2018 Emergency department patient visit GINO GUTIERREZ [facility] Start: 09-12-2018 End: 09-12-2018 Emergency department patient visit GINNY GUTIÉRREZ [facility] Start: 08-13-2018 End: 08-19-2018 Evaluation and management of [facility] Start: 04-27-2018 End: 04-30-2018 Evaluation and management of inpatient NAMITA RUTH [facility] Start: 2018 End: 04-27-2018 Evaluation and management of inpatient LEIDY COELHO [facility] Start: 03-04-2018 End: 03-07-2018 Evaluation and management of inpatient MARCO V [facility] Procedures Date Procedure Procedure Detail Performing Clinician Start: 12-12-2023 Hepatic function panel Leopoldo Hoskins CNP Work Phone: Start: 12-05-2023 EXTERNAL LAB SCAN Husse in Fabby Sequeira MD Work Phone: Start: 10-31-2023 Assay of free thyroxine Leopoldo Hoskins COMPLAINT INVESTIGATIONS OFFICER Work Phone: Start: 10-31-2023 Hepatic function panel Leopoldo Hoskins COMPLAINT INVESTIGATIONS OFFICER Work Phone: Start: 08-24-2023 Comprehensive metabolic panel Shady Geris DO Work Phone: Start: 08-24-2023 Red blood cell morphology Shady Geris DO Work Phone: Start: 08-23-2023 Comprehensive metabolic panel Shady Geris DO Work Phone: Start: 08-22-2023 Comprehensive metabolic panel Shady Geris DO Work Phone: Start: 08-21-2023 Assay of magnesium Shad y Geris DO Work Phone: Start: 08-21-2023 Comprehensive metabolic panel Shady Geris DO Work Phone: Start: 08-21-2023 Assay of free thyroxine Siomara Wallace COMPLAINT INVESTIGATIONS OFFICER Work Phone: Start: 08-20-2023 Basic metabolic pane l calcium total Mauro Massimo MERINO Work Phone: Start: 10-02-2021 Plain chest X-ray Start: 06-28-2021 DISCHARGE PATIENT ULICES RAJPUT Start: 06-28-2021 COVID-19, RAPID NICOLE RAJPUT Start: 06-27-2021 COVID-19, RAPID NICOLE RAJPUT Start: 06-25-2021 Drug assay valproic dipropylacetic acid total SHILA RAJPUT Start: 06-22-2021 COVID-19 SHILA KING Start: 06-22-2021 OBSERVATION SHILA Valiente OMEN Start: 06-21-2021 IP CONSULT TO SOCIAL WORK SHILA RAJPUT Start: 06-21-2021 ADULT DIET SHILA KING Start: 06-21-2021 FULL CODE SHILA KING Start: 06-21-2021 NURSING COMMUNICATION Steffanie RAJPUT Start: 06-21-2021 VITAL SIGNS SHILA KING Start: 06-21-2021 ADMIT TO BEHAVIORAL KP LEOPOLDO RAJPUT Start: 06-21-2021 DROPLET PLUS ISOLATION SHILA RAJPUT Start: 06-21-2021 Urnls dip stick/tabl et rgnt auto w/o microscopy SHILA RAJPUT Start: 06-21-2021 RESPIRATORY PANEL, Steffanie MONET, WITH COVID-19 SHILA RAJPUT Start: 06-20-2021 Ecg routine ecg w/le ast 12 lds w/i&r SHILA RAJPUT Start: 06-20-2021 Blood count complete auto&auto difrntl wbc SHILA RAJPUT Start: 06-20-2021 COVID-19 AND INFLUENZA COMBO SHILA RAJPUT Start: 06-20-2021 Drug screen, qualitate/multi SHILA RAJPUT Start: 06-20-2021 Hepatic function panel SHILA RAJPUT Start: 06-20-2021 Drug screen class list a SHILA RAJPUT Start: 01-05-2020 Thyrotropin [Units/v olume] in Serum or Plasma by Detection limit <= 0.005 mIU/L Cindy Nieto Work Phone: Start: 01-05-2020 Thyroxine (T4) free [Mass/volume] in Serum or Plasma Cindy Nieto Work Phone: Start: 12-31-2019 Complete blood count with white cell differential, automated Namita Vernon Eid Work Phone: Start: 12-31-2019 Complete blood count with white cell differential, manual Namita Vernon Denise Work Phone: Start: 12-31-2019 Comprehensive metabo lic 1999 panel - Serum or Plasma Aichamed Yue Vernon Denise Work Phone: Start: 12-31-2019 Magnesium [Mass/volu me] in Serum or Plasma Aichamed Yue Vernon Denise Work Phone: Start: 12-30-2019 Complete blood count with white cell differential, automated Namita Vernon Denise Work Phone: Start: 12-30-2019 Complete blood count with white cell differential, manual Namita Vernon Denise Work Phone: Start: 12-30-2019 Comprehensive metabo lic 2000 panel - Serum or Plasma Namita Vernon Denise Work Phone: Start: 12-30-2019 Creatine kinase [Enz ymatic activity/volume] in Serum or Plasma Sarah Reyes Work Phone: Start: 12-30-2019 Magnesium [Mass/volu me] in Serum or Plasma isidra Vernon Denise Work Phone: Start: 12-30-2019 Triiodothyronine (T3 ) Free [Mass/volume] in Serum or Plasma med Yue Vernon Denise Work Phone: Start: 12-30-2019 Valproate [Mass/volu me] in Serum or Plasma Dilcia Veronica Work Phone: Start: 12-29-2019 Creatine kinase [Enz ymatic activity/volume] in Serum or Plasma Sarah Reyes Work Phone: Start: 12-29-2019 Thyrotropin [Units/v olume] in Serum or Plasma by Detection limit <= 0.005 mIU/L Carey Goldman Work Phone: Start: 12-29-2019 Thyroxine (T4) free [Mass/volume] in Serum or Plasma Carey Goldman Work Phone: Start: 12-28-2019 Creatine kinase [Enz ymatic activity/volume] in Serum or Plasma Sarah Reyes Work Phone: Start: 12-28-2019 Complete blood count with white cell differential, automated Sarah Reyes Work Phone: Start: 12-28-2019 Complete blood count with white cell differential, manual Sarah Reyes Work Phone: Start: 12-28-2019 Lactate [Moles/volum e] in Serum or Plasma Sarah Reyes Work Phone: Start: 12-27-2019 Basic metabolic 2000 panel - Serum or Plasma Hussein Bradshaw Work Phone: Start: 12-27-2019 Creatine kinase [Enz ymatic activity/volume] in Serum or Plasma Sarah Reyes Work Phone: Start: 12-26-2019 Radiologic exam ches t single view Valerie Shields Work Phone: Start: 12-26-2019 Creatine kinase [Enz ymatic activity/volume] in Serum or Plasma Valerie Shields Work Phone: Start: 12-26-2019 12 lead ECG Valerie Shields Work Phone: Start: 12-26-2019 Drugs of abuse urine screening test Valerie Shields Work Phone: Start: 12-26-2019 Urinalysis Valerie Shields Work Phone: Start: 12-26-2019 Basic metabolic 2000 panel - Serum or Plasma Valerie Shields Work Phone: Start: 12-26-2019 Complete blood count with white cell differential, automated Valerie Shields Work Phone: Start: 12-26-2019 Complete blood count with white cell differential, manual Valerie Sheilds Work Phone: Start: 12-26-2019 Creatine kinase [Enz ymatic activity/volume] in Serum or Plasma Valerie Shields Work Phone: Start: 12-26-2019 Ethanol [Mass/volume ] in Serum or Plasma Valerie Shields Work Phone: Start: 12-26-2019 Hepatic function 200 0 panel - Serum or Plasma Valerie Shields Work Phone: Start: 12-26-2019 LAVENDER TOP Valerie Shields Work Phone: Start: 12-26-2019 LIGHT BLUE TOP Valerie Shields Work Phone: Start: 12-26-2019 LIGHT GREEN TOP Valerie Shields Work Phone: Start: 12-26-2019 MINT GREEN TOP Valerie Shields Work Phone: Start: 12-26-2019 RAINBOW DRAW Valerie Shields Work Phone: Start: 12-26-2019 Thyrotropin [Units/v olume] in Serum or Plasma by Detection limit <= 0.005 mIU/L Valerie Shields Work Phone: Start: 12-26-2019 Thyroxine (T4) free [Mass/volume] in Serum or Plasma Valerie Shields Work Phone: Start: 12-26-2019 COVID-19, MOLECULAR Neymar Shields Work Phone: Start: 12-08-2019 Thyrotropin [Units/v olume] in Serum or Plasma by Detection limit <= 0.005 mIU/L Emerita Santamaria Work Phone: Start: 12-08-2019 Thyroxine (T4) free [Mass/volume] in Serum or Plasma Emerita Santamaria Work Phone: Start: 12-02-2019 Complete blood count with white cell differential, automated Emerita Santamaria Work Phone: Start: 12-02-2019 Complete blood count with white cell differential, manual Emerita Santamaria Work Phone: Start: 12-02-2019 Comprehensive metabo lic 2000 panel - Serum or Plasma Emerita Santamaria Work Phone: Start: 11-21-2019 Electrocardiogram Provi marcel Not In System Start: 11-20-2019 12 lead ECG Jay Alonzomelly Work Phone: Start: 11-20-2019 COVID-19, MOLECULAR Nicholsa miller Anthony Pinzon Work Phone: Start: 11-20-2019 Radiologic exam ches t single view Jeanette Houserrhina [place] Work Phone: Start: 11-20-2019 Complete blood count with white cell differential, automated Jeanette Pinzon Work Phone: Start: 11-20-2019 Complete blood count with white cell differential, manual Jeanette Pinzno Work Phone: Start: 11-20-2019 Comprehensive metabo lic 2000 panel - Serum or Plasma Jeanette Pinzon Work Phone: Start: 11-20-2019 Creatine kinase [Enz ymatic activity/volume] in Serum or Plasma Jeanette Mikrhina [place] Work Phone: Start: 11-20-2019 Drugs of abuse urine screening test Jeanette Pinzon Work Phone: Start: 11-20-2019 Ethanol [Mass/volume ] in Serum or Plasma Jay Torres Work Phone: Start: 11-20-2019 LIGHT BLUE TOP Jay Torres Work Phone: Start: 11-20-2019 LIGHT GREEN TOP Jay Torres Work Phone: Start: 11-20-2019 Magnesium [Mass/volu me] in Serum or Plasma Jay Jared Torres Work Phone: Start: 11-20-2019 RAINBOW DRAW Jay Mejias yash Alonzomelly Work Phone: Start: 11-20-2019 Thyrotropin [Units/v olume] in Serum or Plasma by Detection limit <= 0.005 mIU/L Jeanette Houserrhina Pinson Work Phone: Start: 11-20-2019 Thyroxine (T4) free [Mass/volume] in Serum or Plasma Jay Jared Torres Work Phone: Start: 11-20-2019 Troponin measurement Da ninancy Cruz [place] Work Phone: Start: 11-20-2019 Urinalysis Jeanette meier [place] Work Phone: Start: 11-20-2019 12 lead ECG Jeanette Pinzon Work Phone: Start: 11-19-2019 Thyrotropin [Units/v olume] in Serum or Plasma by Detection limit <= 0.005 mIU/L Fabiennegalileo Staplesyash Bautista Work Phone: Start: 11-19-2019 Thyroxine (T4) free [Mass/volume] in Serum or Plasma Fabiennegalileo Staplesyash Bautista Work Phone: Start: 11-18-2019 Radiologic exam ches t single view Emerita Santamaria Work Phone: Start: 11-12-2019 COVID-19, MOLECULAR Deuce zeyad Le Work Phone: Start: 11-12-2019 Drugs of abuse urine screening test Manolo Le Work Phone: Start: 11-12-2019 Ethanol [Mass/volume ] in Serum or Plasma Manolo Le Work Phone: Start: 11-12-2019 LAVENDER TOP Manolo Le Work Phone: Start: 11-12-2019 LIGHT BLUE TOP Manolo Le Work Phone: Start: 11-12-2019 LIGHT GREEN TOP Manolo Le Work Phone: Start: 11-12-2019 MINT GREEN TOP Manolo Le Work Phone: Start: 11-12-2019 RAINBOW DRAW Manolo Le Work Phone: Start: 11-12-2019 Thyrotropin [Units/v olume] in Serum or Plasma by Detection limit <= 0.005 mIU/L Manolo Le Work Phone: Start: 11-12-2019 Thyroxine (T4) free [Mass/volume] in Serum or Plasma Manolo Le Work Phone: Start: 11-06-2019 Radiologic exam ches t single view Valerie Margoaaron Shields Work Phone: Start: 10-30-2019 Thyroxine (T4) free [Mass/volume] in Serum or Plasma Cindy Nieto Work Phone: Start: 10-27-2019 Thyroxine (T4) free [Mass/volume] in Serum or Plasma Jay Lovell Work Phone: Start: 10-24-2019 Thyroxine (T4) free [Mass/volume] in Serum or Plasma Cindy Nieto Work Phone: Start: 10-20-2019 12 lead ECG Carey Goldman Work Phone: Start: 10-19-2019 COVID-19, MOLECULAR Amb kris Gordo Work Phone: Start: 10-19-2019 Cobalamin (Vitamin B 12) [Mass/volume] in Serum or Plasma Emerita Santamaria Work Phone: Start: 10-19-2019 Complete blood count with white cell differential, automated Carey Goldman Work Phone: Start: 10-19-2019 Complete blood count with white cell differential, manual Carey Goldman Work Phone: Start: 10-19-2019 Comprehensive metabo lic 2000 panel - Serum or Plasma Carey Goldman Work Phone: Start: 10-19-2019 Drugs of abuse urine screening test Lee Epps Work Phone: Start: 10-19-2019 Ethanol [Mass/volume ] in Serum or Plasma Lee Epps Work Phone: Start: 10-19-2019 Ferritin [Mass/volum e] in Serum or Plasma Emerita Santamaria Work Phone: Start: 10-19-2019 Folate [Mass/volume] in Serum or Plasma Emerita Santamaria Work Phone: Start: 10-19-2019 MAYNARD TOP Nacho Caro Work Phone: Start: 10-19-2019 Iron [Mass/volume] i n Serum or Plasma Emerita Santamaria Work Phone: Start: 10-19-2019 LAVENDER TOP Nacho Caro Work Phone: Start: 10-19-2019 LIGHT BLUE TOP Nacho Caro Work Phone: Start: 10-19-2019 LIGHT GREEN TOP Nacho Caro Work Phone: Start: 10-19-2019 Lipid 1996 panel - S karlene or Plasma Carey Goldman Work Phone: Start: 10-19-2019 Manual Differential panel - Blood Carey Goldman Work Phone: Start: 10-19-2019 Measurement of thyroperoxidase antibody Cindy Nieto Work Phone: Start: 10-19-2019 MINT GREEN TOP Nacho Caro Work Phone: Start: 10-19-2019 RAINBOW DRAW Nacho Caro Work Phone: Start: 10-19-2019 Red blood cell morphology Carey Goldman Work Phone: Start: 10-19-2019 Thyroid stimulating immune globulins tsi Cindy Nieto Work Phone: Start: 10-19-2019 Thyrotropin [Units/v olume] in Serum or Plasma by Detection limit <= 0.005 mIU/L Carey Hannah Goldman Work Phone: Start: 10-19-2019 Thyroxine (T4) free [Mass/volume] in Serum or Plasma Carey Hannah Goldman Work Phone: Start: 10-19-2019 Transferrin measurement Emerita Santamaria Work Phone: Start: 10-19-2019 Triiodothyronine (T3 ) Free [Mass/volume] in Serum or Plasma Emerita Huff Rosalio Work Phone: Start: 10-19-2019 URINE CONTAINER Nacho Caro Work Phone: Start: 06-04-2019 INCENTIVE SPIROMETRY RT GINO ORQVIST Start: 06-04-2019 NEBULIZER TX INTERMITTENT GINO ORQVIST Start: 06-04-2019 INCENTIVE SPIROMETRY RT GINO ORQVIST Start: 06-04-2019 DISCHARGE PATIENT GINO ORQVIST Start: 06-04-2019 DIETARY NUTRITION SUPPLEMENTS GINO ORQVIST Start: 06-04-2019 INCENTIVE SPIROMETRY RT GINO ORQVIST Start: 06-04-2019 NEBULIZER TX INTERMITTENT GINO ORQVIST Start: 06-04-2019 INCENTIVE SPIROMETRY RT GINO ORQVIST Start: 06-04-2019 INCENTIVE SPIROMETRY RT GINO ORQVIST Start: 06-04-2019 INITIATE OXYGEN THER APY PROTOCOL GINO ORQVIST Start: 06-04-2019 NEBULIZER TX INTERMITTENT GINO ORQVIST Start: 06-04-2019 Toxin/antitoxin assa y tissue culture GINO ORQVIST Start: 06-04-2019 DROPLET ISOLATION GINO ORQVIST Start: 06-04-2019 INCENTIVE SPIROMETRY RT GINO ORQVIST Start: 06-04-2019 Blood count complete automated GINO ORQVIST Start: 06-04-2019 Comprehensive metabolic panel GINO ORQVIST Start: 06-04-2019 Toxin/antitoxin assa y tissue culture Virender K Suni Work Phone: Start: 06-04-2019 BASIC METABOLIC PANE L W/ REFLEX TO MG FOR LOW K Cierra Nicky Nguyen Work Phone: Start: 06-04-2019 Blood count complete automated Cierra Nguyen Work Phone: Start: 06-04-2019 DAILY WEIGHTS GINO ORQ VIST Start: 06-04-2019 INTAKE AND OUTPUT GINO ORQVIST Start: 06-04-2019 INCENTIVE SPIROMETRY RT GINO ORQVIST Start: 06-03-2019 INCENTIVE SPIROMETRY RT GINO ORQVIST Start: 06-03-2019 NEBULIZER TX INTERMITTENT GINO ORQVIST Start: 06-03-2019 INCENTIVE SPIROMETRY RT GINO ORQVIST Start: 06-03-2019 INCENTIVE SPIROMETRY RT GINO ORQVIST Start: 06-03-2019 NEBULIZER TX INTERMITTENT GINO ORQVIST Start: 06-03-2019 IP CONSULT TO PSYCHIATRY GINO ORQVIST Start: 06-03-2019 Virus centrifuge enh ncd id imfluor stain ea GINO ORQVIST Start: 06-03-2019 Smr prim src gram/gi emsa stain bct fungi/cell GINO ORQVIST Start: 06-03-2019 NEBULIZER TX INTERMITTENT GINO ORQVIST Start: 06-03-2019 Virus centrifuge enh ncd id imfluor stain ea Cierra FlowerNPSsivan Work Phone: Start: 06-03-2019 Smr prim src gram/gi emsa stain bct fungi/cell Cierra Nguyen Work Phone: Start: 06-03-2019 IP CONSULT TO SOCIAL WORK GINO ORQVIST Start: 06-03-2019 NEBULIZER TX INTERMITTENT GINO ORQVIST Start: 06-03-2019 OT EVAL AND TREAT GINO ORQVIST Start: 06-03-2019 PLACE INTERMITTENT P NEUMATIC COMPRESSION DEVICE GINO ORQVIST Start: 06-03-2019 PT EVAL AND TREAT GINO ORQVIST Start: 06-03-2019 RESPIRATORY CARE ZAKIYA LUATION ONLY GINO ORQVIST Start: 06-03-2019 DIET GENERAL GINO ORQV IST Start: 06-03-2019 ENCOURAGE DEEP BREAT MANOHAR AND COUGHING GINO ORQVIST Start: 06-03-2019 FULL CODE GINO ORQV IST Start: 06-03-2019 INITIATE OXYGEN THER APY PROTOCOL GINO ORQVIST Start: 06-03-2019 INTAKE AND OUTPUT GINO ORQVIST Start: 06-03-2019 NOTIFY PHYSICIAN (SPECIFY) GINO ORQVIST Start: 06-03-2019 TELEMETRY MONITORING MAGALI MARTINEZ ORQVIST Start: 06-03-2019 VITAL SIGNS GINO ORQV IST Start: 06-03-2019 Iaad ia mult step me thod nos each organism GINO ORQVIST Start: 06-03-2019 Creatine kinase total A BHAVESH ORQVIST Start: 06-03-2019 Iadna respiratry pro be & rev trnscr 04-09 target GINO ORQVIST Start: 06-03-2019 Iaad ia mult step me thod nos each organism Manuel Vu Work Phone: Start: 06-03-2019 STREP PNEUMONIAE ANTIGEN Manuel Vu Work Phone: Start: 06-03-2019 Iadna respiratry pro be & rev trnscr 04-09 target Manuel Vu Work Phone: Start: 06-03-2019 PATIENT STATUS (FROM ED OR OR/PROCEDURAL) GINO ORQVIST Start: 06-03-2019 VITAL SIGNS GINO ORQV IST Start: 06-03-2019 Urnls dip stick/tabl et reagent auto microscopy GINO ORQVIST Start: 06-03-2019 Basic metabolic pane l calcium total GINO ORQVIST Start: 06-03-2019 Blood count complete auto&auto difrntl wbc GINO ORQVIST Start: 06-03-2019 Prothrombin time GINO ORQVIST Start: 06-03-2019 Thromboplastin time partial plasma/whole blood GINO ORQVIST Start: 06-03-2019 Culture bacterial bl ood aerobic w/id isolates GINO ORQVIST Start: 06-03-2019 IP CONSULT TO HOSPITALIST GINO SWANNQVIST Start: 06-03-2019 Assay of lactate GINO ORQVIST Start: 06-03-2019 Culture bacterial qu anttative colony count urine Jared Hadley Work Phone: Start: 06-03-2019 Radiologic exam chest 2 views GINO ORQVIST Start: 06-03-2019 Iaadiadoo influenza AAR ON ORQVIST Start: 06-03-2019 Iaadiadoo streptococ cus group a GINO ORQVIST Start: 06-03-2019 Urnls dip stick/tabl et reagent auto microscopy Jared Hadley Work Phone: Start: 06-03-2019 Basic metabolic pane l calcium total Jared Hadley Work Phone: Start: 06-03-2019 Blood count complete auto&auto difrntl wbc Jared Hadley Work Phone: Start: 06-03-2019 LACTATE, SEPSIS Jared Hadley Work Phone: Start: 06-03-2019 Prothrombin time Jared Hadley Work Phone: Start: 06-03-2019 Thromboplastin time partial plasma/whole blood Jared Hadley Work Phone: Start: 06-03-2019 End: 06-03-2019 Culture bacterial blood aerobic w/id isolates Jared Hadley Work Phone: Start: 06-03-2019 Radiologic exam chest 2 views Jared Hadley Work Phone: Start: 06-03-2019 Iaadiadoo influenza Randell Hadley Work Phone: Start: 06-03-2019 Iaadiadoo streptococ cus group a Jared Hadley Work Phone: Start: 11-01-2018 Smr prim src wet elijah nt nfct agt GINO ORQVIST Start: 11-01-2018 C.TRACHOMATIS N.GONO RRHOEAE DNA, URINE GINO ORQVIST Start: 11-01-2018 Iadna herpes somplx virus amplified probe tq GINO ORQVIST Start: 11-01-2018 Antibody hiv-1&hiv-2 single result GINO ORQVIST Start: 11-01-2018 Antibody treponema pallidum GINO ORQVIST Start: 08-19-2018 DISCHARGE PATIENT SREEK ANTH INDURTI Start: 08-15-2018 Blood count complete auto&auto difrntl wbc MARCO INDURTI Start: 08-15-2018 Comprehensive metabolic panel MARCO INDURTI Start: 08-14-2018 IP CONSULT TO HISTOR Y AND PHYSICAL MARCO INDURTI Start: 08-14-2018 DIET GENERAL MARCO INDURTI Start: 08-14-2018 FULL CODE MARCO INDURTI Start: 08-14-2018 PATIENT MONITORING C LOSE Q 15 MINUTES MARCO INDURTI Start: 08-14-2018 PATIENT STATUS (FROM ED OR OR/PROCEDURAL) MARCO INDURTI Start: 08-14-2018 SUICIDE PRECAUTIONS SRE EKANTH INDURTI Start: 04-30-2018 DISCHARGE PATIENT SREEK ANTH INDURTI Start: 04-28-2018 Blood count complete auto&auto difrntl wbc MARCO INDURTI Start: 04-28-2018 DIET GENERAL MARCO INDURTI Start: 04-28-2018 FULL CODE MARCO INDURTI Start: 04-28-2018 IP CONSULT TO HOSPITALIST MARCO INDURTI Start: 04-28-2018 MONITOR MARCO INDURTI Start: 04-28-2018 PATIENT STATUS (DIRECT) MARCO INDURTI Start: 04-28-2018 SUICIDE PRECAUTIONS SRE EKANTH INDURTI Start: 04-28-2018 TOBACCO CESSATION EDUCATION MARCO INDURTI Start: 04-28-2018 VITAL SIGNS MARCO INDURTI Start: 04-27-2018 Blood count complete auto&auto difrntl wbc MARCO INDURTI Start: 04-27-2018 Blood count complete automated MARCO INDURTI Start: 04-27-2018 DISCHARGE PATIENT SREEK ANTH INDURTI Start: 04-27-2018 INITIATE OXYGEN THER APY PROTOCOL MARCO INDURTI Start: 04-27-2018 Blood count complete auto&auto difrntl wbc MARCO INDURTI Start: 04-27-2018 Blood count complete automated MARCO INDURTI Start: 04-27-2018 INTAKE AND OUTPUT SREEK ANTH INDURTI Start: 04-27-2018 EKG 12-LEAD MARCO INDURTI Start: 04-27-2018 EKG REPORT MARCO INDURTI Start: 2018 Microscopic urinalysis MARCO INDURTI Start: 2018 URINE DRUG SCREEN SREEK ANTH INDURTI Start: 2018 URINE RT REFLEX TO CULTURE MARCO INDURTI Start: 2018 Drug tst prsmv instr mnt chem analyzers pr date MARCO INDURTI Start: 2018 DIET GENERAL MARCO INDURTI Start: 2018 IP CONSULT TO PSYCHIATRY MARCO INDURTI Start: 2018 IP CONSULT TO SOCIAL WORK MARCO INDURTI Start: 2018 PT EVAL AND TREAT SREEK ANTH INDURTI Start: 2018 SITTER AT BEDSIDE SREEK ANTH INDURTI Start: 2018 TELEMETRY MONITORING SR EEKANTH INDURTI Start: 2018 FULL CODE MARCO INDURTI Start: 2018 INITIATE OXYGEN THER APY PROTOCOL MARCO INDURTI Start: 2018 INTAKE AND OUTPUT SREEK ANTH INDURTI Start: 2018 NOTIFY PHYSICIAN (SPECIFY) MARCO INDURTI Start: 2018 OT EVAL AND TREAT SREEK ANTH INDURTI Start: 2018 PULSE OXIMETRY SPOT CHECK MARCO INDURTI Start: 2018 REASON FOR NO MECHAN ICAL VTE PROPHYLAXIS MARCO INDURTI Start: 2018 VITAL SIGNS MARCO INDURTI Start: 2018 Troponin I.cardiac mass conc MARCO INDURTI Start: 2018 EKG 12-LEAD MARCO INDURTI Start: 2018 PATIENT STATUS (FROM ED OR OR/PROCEDURAL) MARCO INDURTI Start: 2018 IP CONSULT TO INDUSTRIAL ORDER CLERK AL MEDICINE MARCO INDURTI Start: 2018 Ammonia mass conc (P) S REEKANTH INDURTI Start: 2018 BLOOD GAS, VENOUS SREEK ANTH INDURTI Start: 2018 Radiologic exam ches t single view MARCO INDURTI Start: 2018 Assay of lipase SREEKAN TH INDURTI Start: 2018 Assay of magnesium TRISTON GRANT INDURTI Start: 2018 Basic metabolic pane l calcium total MARCO INDURTI Start: 2018 Blood count complete auto&auto difrntl wbc MARCO INDURTI Start: 2018 Drug tst prsmv instr mnt chem analyzers pr date MARCO INDURTI Start: 2018 Hepatic function panel MARCO INDURTI Start: 2018 Troponin I.cardiac mass conc MARCO INDURTI Start: 2018 INSERT PERIPHERAL IV SR EEKANTH INDURTI Start: 2018 EKG 12-LEAD MARCO INDURTI Start: 2018 EKG REPORT MARCO INDURTI Start: 2018 SUICIDE PRECAUTIONS SRE EKANTH INDURTI Start: 03-06-2018 DISCHARGE PATIENT SREEK ANTH INDURTI Start: 03-06-2018 Assay of free thyroxine MARCO INDURTI Start: 03-06-2018 Assay of thyroid sti mulating hormone tsh MARCO INDURTI Start: 03-06-2018 Hemoglobin glycosylated a1c MARCO INDURTI Start: 03-06-2018 Lipid panel MARCO INDURTI Start: 03-04-2018 DIET GENERAL MARCO INDURTI Start: 03-04-2018 FULL CODE MARCO INDURTI Start: 03-04-2018 IP CONSULT TO HOSPITALIST MARCO INDURTI Start: 03-04-2018 MONITOR MARCO INDURTI Start: 03-04-2018 SUICIDE PRECAUTIONS SRE EKANTH INDURTI Start: 03-04-2018 TOBACCO CESSATION EDUCATION MARCO INDURTI Start: 03-04-2018 VITAL SIGNS MARCO INDURTI Start: 03-04-2018 PATIENT STATUS (FROM ED OR OR/PROCEDURAL) MARCO INDURTI Start: 03-04-2018 ED NURSING COMMUNICATION MARCO INDURTI Start: 03-04-2018 Blood count complete auto&auto difrntl wbc MARCO INDURTI Start: 03-04-2018 Comprehensive metabolic panel MARCO INDURTI Start: 03-04-2018 Ethanol mass conc SREEK ANTH INDURTI Plan of Treatment Date Care Activity Detail Author Start: 2073 RSV Vaccines (1 - 1-dose 75+ series) RSV Vaccines (1 - 1-dose 75+ series) [facility] Start: 2048 Administration of herpes zoster vaccine Zoster Vaccines (1 of 2) [facility] Start: 2048 Shingles (RZV) Vaccine (1 of 2) Shingles (RZV) Vaccine (1 of 2) [facility] Start: 2048 Shingles Vaccine (1 of 2) Shingles Vaccine (1 of 2) [place] Start: 08-13-2028 DTaP/Tdap/Td vaccine (3 - Td) DTaP/Tdap/Td vaccine (3 - Td) [place] Start: 08-13-2028 Tetanus vaccination Tetanus: Every 10yrs [facility] Start: 08-13-2028 Vaccination for diphtheria, pertussis, and tetanus Tetanus/Diphtheria/Pert ussis (3 - Td or Tdap) [facility] Start: 03-24-2025 End: 03-24-2025 Patient encounter procedure 03/24/2025 1:00 PM EST Office Visit [facility] [address] [facility] [place] [phone] Charles Sequeira MD [address] [place] [phone] [facility] Start: 01-29-2025 End: 01-29-2025 Patient encounter procedure 01/29/2025 11:15 AM EDT Office Visit [facility] [address] [place] [address] [place] [phone] Charles Sequeira MD [address] [place] [phone] [facility] Start: 01-14-2025 End: 12-25-2025 Thyrotropin [Units/volume] in Serum or Plasma TSH Lab Routine Graves disease Hyperthyroidism Expected: 01/14/2025, Expires: 12/25/2025 [facility] Work Phone: Comment on above: Expected: 01/14/2025, Expires: Start: 01-14-2025 End: 12-25-2025 Thyroxine (T4) free [Mass/volume] in Serum or Plasma T4, free Lab Routine Graves disease Hyperthyroidism Expected: 01/14/2025, Expires: 12/25/2025 [facility] Comment on above: Expected: 01/14/2025, Expires: Start: 01-14-2025 End: 12-25-2025 Triiodothyronine (T3) [Mass/volume] in Serum or Plasma T3 Lab Routine Graves disease Hyperthyroidism Expected: 01/14/2025, Expires: 12/25/2025 [facility] Comment on above: Expected: 01/14/2025, Expires: Start: 01-14-2025 End: 12-25-2025 Triiodothyronine (T3) Free [Mass/volume] in Serum or Plasma T3, Free Lab Routine Graves disease Hyperthyroidism Expected: 01/14/2025, Expires: 12/25/2025 [facility] Comment on above: Expected: 01/14/2025, Expires: Start: 12-25-2024 End: 12-25-2024 Patient encounter procedure 12/25/2024 2:30 PM EDT Office Visit [facility] [address] [place] [address] [place] [address] Charles Sequeira MD [address] [place] [phone] [facility] Start: 12-15-2024 COVID-19 Vaccine ( season) COVID-19 Vaccine ( season) [facility] Start: 12-15-2024 Influenza vaccination [facility] Start: 10-23-2024 End: 10-23-2024 Patient encounter procedure 10/23/2024 8:00 AM EDT Office Visit [facility] [address] [place] [phone] Charles Sequeira MD [address] [place] [address] [facility] Start: 06-26-2024 End: 06-26-2024 Patient encounter procedure 06/26/2024 2:30 PM EDT Office Visit [facility] [address] [facility] [place] [phone] Charles Sequeira MD [address] [place] [phone] [facility] Start: 05-15-2024 End: 05-15-2024 Patient encounter procedure 05/15/2024 2:30 PM EST Office Visit [facility] [address] [place] [address] [place] [phone] Charles Sequeira MD [address] [place] [address] [facility] Start: 01-30-2024 End: 01-30-2024 Patient encounter procedure 01/30/2024 3:30 PM EDT Office Visit [facility] [address] [place] [phone] Charles Sequeira MD [address] [place] [address] [facility] Start: 12-16-2023 COVID-19 Vaccine ( season) COVID-19 Vaccine ( season) [facility] Start: 12-16-2023 Influenza vaccination [facility] Start: 12-12-2023 End: 12-12-2023 Patient encounter procedure 12/12/2023 9:00 AM EDT Office Visit [facility] [address] [place] [phone] Leopoldo Hoskins CNP [address] [place] [address] [facility] Start: 11-16-2023 End: 11-01-2024 Complete blood count with white cell differential, manual CBC and Differential Lab Routine Hyperthyroidism Graves disease Expected: 11/16/2023, Expires: 11/01/2024 [facility] Comment on above: Expected: 11/16/2023, Expires: Start: 11-16-2023 End: 11-01-2024 Hepatic function 2000 panel - Serum or Plasma Hepatic function panel Lab Routine Hyperthyroidism Graves disease Expected: 11/16/2023, Expires: 11/01/2024 [facility] Work Phone: Comment on above: Expected: 11/16/2023, Expires: Start: 11-16-2023 End: 11-01-2024 Thyrotropin [Units/volume] in Serum or Plasma TSH Lab Routine Hyperthyroidism Graves disease Expected: 11/16/2023, Expires: 11/01/2024 [facility] Comment on above: Expected: 11/16/2023, Expires: Start: 11-16-2023 End: 11-01-2024 Thyroxine (T4) free [Mass/volume] in Serum or Plasma T4, free Lab Routine Hyperthyroidism Graves disease Expected: 11/16/2023, Expires: 11/01/2024 [facility] Comment on above: Expected: 11/16/2023, Expires: Start: 11-16-2023 End: 11-01-2024 Triiodothyronine (T3) [Mass/volume] in Serum or Plasma T3 Lab Routine Hyperthyroidism Graves disease Expected: 11/16/2023, Expires: 11/01/2024 [facility] Comment on above: Expected: 11/16/2023, Expires: Start: 10-31-2023 End: 10-31-2023 Patient encounter procedure 10/31/2023 1:15 PM EDT Office Visit [facility] [address] [facility] [place] [phone] Leopoldo Hoskins, COMPLAINT INVESTIGATIONS OFFICER [address] [place] [address] [facility] Start: 10-09-2023 End: 10-03-2024 Complete blood count with white cell differential, manual CBC and Differential Lab Routine Hyperthyroidism Expected: 10/09/2023, Expires: 10/03/2024 [facility] Comment on above: Expected: 10/09/2023, Expires: Start: 10-09-2023 End: 10-03-2024 Hepatic function 2000 panel - Serum or Plasma Hepatic function panel Lab Routine Hyperthyroidism Expected: 10/09/2023, Expires: 10/03/2024 [facility] Comment on above: Expected: 10/09/2023, Expires: Start: 10-09-2023 End: 10-03-2024 Thyroxine (T4) free [Mass/volume] in Serum or Plasma T4, free Lab Routine Hyperthyroidism Expected: 10/09/2023, Expires: 10/03/2024 [facility] Work Phone: Comment on above: Expected: 10/09/2023, Expires: Start: 10-09-2023 End: 10-03-2024 Triiodothyronine (T3) [Mass/volume] in Serum or Plasma T3 Lab Routine Hyperthyroidism Expected: 10/09/2023, Expires: 10/03/2024 [facility] Comment on above: Expected: 10/09/2023, Expires: Start: 09-06-2023 End: 09-06-2023 Patient encounter procedure 09/06/2023 10:00 AM EDT Office Visit [facility] [address] [facility] [place] [phone] Leopoldo Hoskins, COMPLAINT INVESTIGATIONS OFFICER [address] [place] [address] [facility] Start: 12-15-2022 COVID-19 Vaccine ( season) COVID-19 Vaccine ( season) [facility] Start: 12-15-2022 Influenza vaccination Influenza Vaccine (#1) [facility] Start: 12-15-2021 Influenza vaccination INFLUENZA (#1) [facility] Start: 11-01-2021 End: 01-01-2022 Basic metabolic 2000 panel - Serum or Plasma BASIC METABOLIC PNL Lab Routine Primary hypertension Expected: 11/01/2021, Expires: 01/01/2022 PATRICK DENNY MD [employer] Work Phone: Comment on above: Expected: 11/01/2021, Expires: 2 Start: 11-01-2021 End: 01-01-2022 CBC panel - Blood by Automated count CBC Lab Routine Primary hypertension Expected: 11/01/2021, Expires: 01/01/2022 PATRICK DENNY MD [employer] Work Phone: Comment on above: Expected: 11/01/2021, Expires: 2 Start: 11-01-2021 End: 01-01-2022 Thyrotropin [Units/volume] in Serum or Plasma TSH BLD Lab Routine Primary hypertension Expected: 11/01/2021, Expires: 01/01/2022 PATRICK DENNY MD [employer] Work Phone: Comment on above: Expected: 11/01/2021, Expires: 2 Start: 10-02-2021 Blood chemistry [facility] Work Phone: Start: 10-02-2021 Thyroid stimulating hormone measurement [facility] Work Phone: Start: 10-02-2021 End: 10-02-2021 [facility] Work Phone: Start: 04-07-2020 End: 04-07-2020 Office Visit 04/07/2020 Office Visit Endocrinology Cindy Nieto MD [address] [place] [address] [place] [phone] [facility] Start: 04-05-2020 End: 02-26-2021 Free T4 [Mass/Vol] T4, Free Lab Routine Graves disease Expected: 04/05/2020 (Approximate), Expires: 02/26/2021 [facility] Comment on above: Expected: 04/05/2020 (Approximate), Expi res: 02/26/2021 Start: 04-05-2020 End: 02-26-2021 TSH Qn TSH Lab Routine Graves disease Expected: 04/05/2020 (Approximate), Expires: 02/26/2021 [facility] Comment on above: Expected: 04/05/2020 (Approximate), Expi res: 02/26/2021 Start: 03-22-2020 End: 03-22-2020 Office Visit 03/22/2020 Office Visit Dentistry [facility] Start: 02-26-2020 End: 02-26-2020 Office Visit 02/26/2020 Office Visit Endocrinology Cindy Nieto MD [facility] Susannah Nunez [address] [address] [phone] [facility] Start: 02-11-2020 End: 02-11-2020 Office Visit 02/11/2020 Office Visit Dentistry [facility] Start: 02-05-2020 End: 02-05-2020 Office Visit 02/05/2020 Office Visit Primary Care Adrienne Arcos, COMPLAINT INVESTIGATIONS OFFICER [address] [place] [address] [phone] [facility] Start: 01-30-2020 End: 12-31-2020 Free T4 [Mass/Vol] T4, Free Lab Routine Hyperthyroidism Expected: 01/30/2020, Expires: 12/31/2020 [facility] Comment on above: Expected: 01/30/2020, Expires: Start: 01-30-2020 End: 12-31-2020 TSH Qn TSH Lab Routine Hyperthyroidism Expected: 01/30/2020, Expires: 12/31/2020 [facility] Comment on above: Expected: 01/30/2020, Expires: Start: 01-14-2020 End: 12-31-2020 Free T4 [Mass/Vol] T4, Free Lab Routine Hyperthyroidism Expected: 01/14/2020, Expires: 12/31/2020 [facility] Comment on above: Expected: 01/14/2020, Expires: Start: 01-14-2020 End: 12-30-2020 TSH Qn TSH Lab Routine Hyperthyroidism Expected: 01/14/2020, Expires: 12/30/2020 [facility] Comment on above: Expected: 01/14/2020, Expires: Start: 01-14-2020 End: 01-14-2020 Office Visit 01/14/2020 Office Visit Endocrinology Cindy Nieto MD [address] [address] [phone] [facility] Start: 12-16-2019 Influenza vaccination given Sequential Influenza Vaccine (#1) [facility] Start: 12-10-2019 End: 12-10-2019 Office Visit 12/10/2019 Office Visit Endocrinology Jay Lovell PA-C [address] [address] [phone] [facility] Start: 12-01-2019 End: 10-30-2020 Complete blood count with white cell differential, manual CBC and Differential Lab Routine Hyperthyroidism Expected: 12/01/2019, Expires: 10/30/2020 [facility] Comment on above: Expected: 12/01/2019, Expires: 1 Start: 12-01-2019 End: 10-30-2020 Free T4 [Mass/Vol] T4, Free Lab Routine Hyperthyroidism Expected: 12/01/2019, Expires: 10/30/2020 [facility] Comment on above: Expected: 12/01/2019, Expires: 1 Start: 12-01-2019 End: 10-30-2020 TSH Qn TSH Lab Routine Hyperthyroidism Expected: 12/01/2019, Expires: 10/30/2020 [facility] Comment on above: Expected: 12/01/2019, Expires: 1 Start: 11-04-2019 End: 11-04-2019 Office Visit 11/04/2019 Office Visit Primary Care Vani Reynolds, COMPLAINT INVESTIGATIONS OFFICER [address] [place] [address] [phone] [facility] Start: 12-15-2018 Influenza vaccination Flu vaccine (#1) [facility] [place] Start: 06-05-2018 History and physical examination, annual for health maintenance Wellness Visit [facility] Start: 2017 Hepatitis B vaccination Hepatitis B Vaccines (1 of 3 - 19+ 3-dose series) [facility] Start: 2017 Pneumococcal vaccination Pneumococcal Vaccine (1 of 2 - PCV) [facility] Start: 2017 Pneumococcal Vaccine: Ped or At-Risk (1 of 2 - PCV) Pneumococcal Vaccine: Ped or At-Risk (1 of 2 - PCV) [facility] Start: 2017 Urine microalbumin profile DTAP,TDAP,TD (1 - Tdap) [facility] Start: 2016 ANNUAL PCP TEAM CHRONIC DISEASE VISIT ANNUAL PCP TEAM CHRONIC DISEASE VISIT [facility] Start: 2016 BP CONTROLLED (<130/80) BP CONTROLLED (<130/80) [facility] Start: 2016 Hepatitis C antibody, confirmatory test Hepatitis C Screening [facility] Start: 2016 HEPATITIS C SCREENING HEPATITIS C SCREENING [facility] Start: 2016 Hepatitis C screening [facility] Start: 2016 HIV SCREENING HIV SCREENING [facility] Start: 2016 Tetanus + diphtheria + acellular pertussis vaccine (product) Tdap Booster [facility] Start: 2013 HIV screening [facility] Start: 06-01-2012 HPV vaccine (2 - Male 2-dose series) HPV vaccine (2 - Male 2-dose series) [place], [place] Start: 06-01-2012 Vaccination for human papillomavirus HPV Vaccines (2 - Male 2-dose series) [facility] Start: 2012 PEDS TO ADULT TRANSITION ANNUAL ASSESSMENT PEDS TO ADULT TRANSITION ANNUAL ASSESSMENT [facility] Start: 2011 Varicella vaccination Varicella Vaccines (1 of 2 - 13+ 2-dose series) [facility] Start: 2010 Adult depression screening assessment DEPRESSION SCREENING [facility] Start: 2010 PEDS TO ADULT TRANSITION INITIAL DISCUSSION PEDS TO ADULT TRANSITION INITIAL DISCUSSION [facility] Start: 2009 HPV VACCINE (1 - Male 2-dose series) HPV VACCINE (1 - Male 2-dose series) [facility] Start: 2009 Vaccination for human papillomavirus [facility] Start: 2008 MENINGOCOCCAL B: Consider based on risk (1 of 2 - Risk Bexsero 2-dose series) MENINGOCOCCAL B: Consider based on risk (1 of 2 - Risk Bexsero 2-dose series) [facility] Start: 2004 PNEUMOCOCCAL (1 - PCV) PNEUMOCOCCAL (1 - PCV) [facility] Start: 2004 Pneumococcal 0-64 years Vaccine (1 of 1 - PPSV23) Pneumococcal 0-64 years Vaccine ([facility] 1 [facility]: 2004 Pneumococcal Vaccine: Ped or At-Risk (1 of 2 - PCV) Pneumococcal Vaccine: Ped or At-Risk (1 of 2 - PCV) [facility] Start: 2001 History and physical examination, annual for health maintenance Wellness Visit [facility] Start: 2001 Medicare Wellness Visit Medicare Wellness Visit [facility] Start: 1999 [id number] vaccination MMR Vaccines (1 of 1 - Standard series) [facility] Start: 1999 Varicella vaccine (1 of 2 - 2-dose childhood series) Varicella vaccine (1 of 2 - 2-dose childhood series) [place], [place] Start: 1998 COVID-19 VACCINE (#1) COVID-19 VACCINE (#1) [facility] End: 10-22-2019 12 lead ECG ECG 12 Lead ECG Routine Once for 1 Occurrences starting 10/22/2019 until 10/22/2019 [facility] Comment on above: Once for 1 Occurrences starting 10/22/19 20 until 10/22/2019 End: 04-01-2025 Complete blood count with white cell differential, manual CBC and Differential Lab Routine Graves disease every ~1 month for 4 Occurrences starting 04/01/2024 until 04/01/2025 [facility] Work Phone: Comment on above: every ~1 month for 4 Occurrences startin g 04/01/2024 until 04/01/2025 End: 05-15-2025 Complete blood count with white cell differential, manual [facility] Comment on above: 1 Occurrences starting 05/15/2024 until 05/15/2025 every 1-4 weeks for 6 Occurrences starting 05/15/2024 until 05/15/2025 [facility] End: 01-14-2021 Free T4 [Mass/Vol] T4, Free Lab Routine Graves disease 1 Occurrences starting 01/14/2020 until 01/14/2021 [facility] Comment on above: 1 Occurrences starting 01/14/2020 until 01/14/2021 End: 04-01-2025 Hepatic function 2000 panel - Serum or Plasma Hepatic function panel Lab Routine Graves disease every ~1 month for 4 Occurrences starting 04/01/2024 until 04/01/2025 [facility] Comment on above: every ~1 month for 4 Occurrences startin g 04/01/2024 until 04/01/2025 HHN Treatment [facility]ANNA GRUBBS Comment on above: Every 2hr As Needed until discontinued s tarting 06/03/2019 Every 4hr while awak e until discontinued starting 06/03/2019 Incentive spirometry Incentive s pirometry Respiratory Care Routine Every 2hr while awake until discontinued starting 06/03/2019 [facility] Comment on above: Every 2hr while awake until discontinued starting 06/03/2019 Initiate Oxygen Ther apy Protocol Initiate Oxygen Therapy Protocol Respiratory Care Routine Daily until discontinued starting 06/03/[address] [facility] on above: Daily until discontinued starting 2019 End: 06-03-2019 Lactate, Sepsis Lactate, Sepsis Lab STAT Every 2hr for 2 Occurrences starting 06/03/2019 until 06/03/2019, 1 completed [facility] Comment on above: Every 2hr for 2 Occurrences starting until 06/03/2019, 1 completed Patient Education ED Palpitations [facility] Work Phone: Patient referral [facility] Work Phone: Pulse Oximetry Spot Check Pulse Oximetry Spot Check Respiratory Care Routine As Needed until discontinued starting 06/03/2019 [facility] GRUBBS Comment on above: As Needed until discontinued starting End: 06-03-2019 Respiratory care evaluation only Respiratory care evaluation only Respiratory Care Routine One Time for 1 Occurrences starting 06/03/2019 until 06/03/2019 [facility] GRUBBS Comment on above: One Time for 1 Occurrences starting 05/17 until 06/03/2019 Respiratory Culture Respiratory Culture Microbiology [employer] Label Print 06/03/2019 12:20 PM EST Lali [facility] End: 09-10-2025 Thyroid stimulating immunoglobulin Thyroid stimulating immunoglobulin Lab Routine Graves disease 1 Occurrences starting 09/10/2024 until 09/10/2025 [facility] Comment on above: 1 Occurrences starting 09/10/2024 until 09/10/2025 End: 04-01-2025 Thyrotropin [Units/volume] in Serum or Plasma TSH Lab Routine Graves disease every 2 weeks - 1 month for 10 Occurrences starting 04/01/2024 until 04/01/2025 [facility] Comment on above: every 2 weeks - 1 month for 10 Occurrenc es starting 04/01/2024 until 04/01/2025 End: 05-15-2025 Thyrotropin [Units/volume] in Serum or Plasma [facility] Work Phone: Comment on above: 1 Occurrences starting 05/15/2024 until 05/15/2025 every 1-4 weeks for 6 Occurrences starting 05/15/2024 until 05/15/2025 End: 09-10-2025 Thyrotropin [Units/volume] in Serum or Plasma TSH Lab Routine Graves disease 3 Occurrences starting 09/10/2024 until 09/10/2025 [facility] Work Phone: Comment on above: 3 Occurrences starting 09/10/2024 until 09/10/2025 End: 10-23-2025 Thyrotropin [Units/volume] in Serum or Plasma TSH Lab Routine Graves disease 1 Occurrences starting 10/23/2024 until 10/23/2025 [facility] Work Phone: Comment on above: 1 Occurrences starting 10/23/2024 until 10/23/2025 End: 02-10-2026 Thyrotropin [Units/volume] in Serum or Plasma TSH Lab Routine Graves disease 1 Occurrences starting 02/10/2025 until 02/10/2026 [facility] Work Phone: Comment on above: 1 Occurrences starting 02/10/2025 until 02/10/2026 End: 09-10-2025 Thyrotropin binding inhibitory immunoglobulins measurement Thyrotropin Receptor Antibody Lab Routine Graves disease 1 Occurrences starting 09/10/2024 until 09/10/2025 [facility] Comment on above: 1 Occurrences starting 09/10/2024 until 09/10/2025 End: 04-01-2025 Thyroxine (T4) free [Mass/volume] in Serum or Plasma T4, free Lab Routine Graves disease every 2 weeks - 1 month for 10 Occurrences starting 04/01/2024 until 04/01/2025 [facility] Comment on above: every 2 weeks - 1 month for 10 Occurrenc es starting 04/01/2024 until 04/01/2025 End: 05-15-2025 Thyroxine (T4) free [Mass/volume] in Serum or Plasma [facility] Comment on above: 1 Occurrences starting 05/15/2024 until 05/15/2025 every 1-4 weeks for 6 Occurrences starting 05/15/2024 until 05/15/2025 End: 09-10-2025 Thyroxine (T4) free [Mass/volume] in Serum or Plasma T4, free Lab Routine Graves disease 3 Occurrences starting 09/10/2024 until 09/10/2025 [facility] Comment on above: 3 Occurrences starting 09/10/2024 until 09/10/2025 End: 10-23-2025 Thyroxine (T4) free [Mass/volume] in Serum or Plasma T4, free Lab Routine Graves disease 1 Occurrences starting 10/23/2024 until 10/23/2025 [facility] Comment on above: 1 Occurrences starting 10/23/2024 until 10/23/2025 End: 02-10-2026 Thyroxine (T4) free [Mass/volume] in Serum or Plasma T4, free Lab Routine Graves disease 1 Occurrences starting 02/10/2025 until 02/10/2026 [facility] Comment on above: 1 Occurrences starting 02/10/2025 until 02/10/2026 End: 04-01-2025 Triiodothyronine (T3) [Mass/volume] in Serum or Plasma T3 Lab Routine Graves disease every 2 weeks - 1 month for 10 Occurrences starting 04/01/2024 until 04/01/2025 [facility] Comment on above: every 2 weeks - 1 month for 10 Occurrenc es starting 04/01/2024 until 04/01/2025 End: 05-15-2025 Triiodothyronine (T3) [Mass/volume] in Serum or Plasma [facility] Comment on above: 1 Occurrences starting 05/15/2024 until 05/15/2025 every 1-4 weeks for 6 Occurrences starting 05/15/2024 until 05/15/2025 End: 09-10-2025 Triiodothyronine (T3) [Mass/volume] in Serum or Plasma T3 Lab Routine Graves disease 3 Occurrences starting 09/10/2024 until 09/10/2025 [facility] Comment on above: 3 Occurrences starting 09/10/2024 until 09/10/2025 End: 10-23-2025 Triiodothyronine (T3) [Mass/volume] in Serum or Plasma T3 Lab Routine Graves disease 1 Occurrences starting 10/23/2024 until 10/23/2025 [facility] Comment on above: 1 Occurrences starting 10/23/2024 until 10/23/2025 End: 02-10-2026 Triiodothyronine (T3) [Mass/volume] in Serum or Plasma T3 Lab Routine Graves disease 1 Occurrences starting 02/10/2025 until 02/10/2026 [facility] Comment on above: 1 Occurrences starting 02/10/2025 until 02/10/2026 End: 04-01-2025 Triiodothyronine (T3) Free [Mass/volume] in Serum or Plasma T3, Free Lab Routine Graves disease every 2 weeks - 1 month for 10 Occurrences starting 04/01/2024 until 04/01/2025 [facility] Comment on above: every 2 weeks - 1 month for 10 Occurrenc es starting 04/01/2024 until 04/01/2025 End: 09-10-2025 Triiodothyronine (T3) Free [Mass/volume] in Serum or Plasma T3, Free Lab Routine Graves disease 3 Occurrences starting 09/10/2024 until 09/10/2025 [facility] Comment on above: 3 Occurrences starting 09/10/2024 until 09/10/2025 End: 10-23-2025 Triiodothyronine (T3) Free [Mass/volume] in Serum or Plasma T3, Free Lab Routine Graves disease 1 Occurrences starting 10/23/2024 until 10/23/2025 [facility] Comment on above: 1 Occurrences starting 10/23/2024 until 10/23/2025 End: 02-10-2026 Triiodothyronine (T3) Free [Mass/volume] in Serum or Plasma T3, Free Lab Routine Graves disease 1 Occurrences starting 02/10/2025 until 02/10/2026 [facility] Comment on above: 1 Occurrences starting 02/10/2025 until 02/10/2026 End: 01-14-2021 TSH Qn TSH Lab Routine Graves disease 1 Occurrences starting 01/14/2020 until 01/14/2021 [facility] Comment on above: 1 Occurrences starting 01/14/2020 until 01/14/2021 Immunizations Immunization Date Immunization Notes Care Provider Fa humza 08-13-2018 tetanus toxoid, redu gurinder diphtheria toxoid, and acellular pertussis vaccine, adsorbed Khadijah Kruger [facility] 05-08-2015 influenza virus vacc ine, unspecified formulation Nyasia Agosto MD Work Phone: [facility] 11-30-2011 HPV, unspecified formulation Nyasia Agosto MD Work Phone: [facility] Payers Date Payer Category Payer Self-pay [id number] 2023 Medicare O [facility] MEDICARE PPO [id number] 2023 Medicare [id number] 2023 Medicare UHC MANAGED MEDI CARE [facility] DUAL COMPLETE (O SNP) [id number] 2023-Present [phone] [address] [address] [place] [address] [id number] [id number] 2023 Unknown SP/UNINSURED PEN DING FINANCIAL PROGRAM EVALUATION 2039 2023-Present [phone] [address] [place] [address] Other [id number] .[id number] 2022 Medicaid [id number] 2022 Unknown [id number] 2021 Unknown [id number] 2020 Medicaid (Managed Care) [id number]. [id number] 2020 Unknown [id number] 2019 Medicare MEDICARE MEDICAR E PART A & B [id number] 2019-Present [place] [id number]. [id number] 2019 Medicare [id number] 2017 Unknown [id number] 2017 Unknown xxxxxxxxxxx [id number]. 2.7.3.351980.315 1998 Unknown [id number] 2.16.840.1.378820.3.579. 2.176 1998 Unknown [id number] 2.16.840.1.871313.3.579. 2.176 1998 Unknown [id number] 2.16.840.1.601748.3.579. 2.176 1998 Unknown [id number] 2.16.840.1.486772.3.579. 2.176 1998 Unknown [id number] 2.16.840.1.944522.3.579. 2.176 1998 Unknown [id number] 2.16.840.1.506463.3.579. 2.175 1998 Unknown [id number] 2.16.840.1.553062.3.579. 2.175 1998 Unknown [id number] 2.16.840.1.316715.3.579. 2.204 1998 Unknown [id number] 2.16.840.1.007730.3.579. 2.732 1998 Unknown [id number] 2.16.840.1.520622.3.579. 2.732 1998 Unknown [id number] 2.16.840.1.241936.3.579. 2.903 1998 Unknown [id number] 2.16.840.1.226746.3.579. 2.903 1998 Unknown [id number] 2.16.840.1.088462.3.579. 2.903 1998 Unknown [id number] 2.16.840.1.356420.3.579. 2.903 1998 Unknown [id number] 2.16.840.1.226170.3.579. 2.903 1998 Unknown [id number] 2.16.840.1.168943.3.579. 2.903 1998 Unknown [id number] 2.16.840.1.586003.3.579. 2.903 1998 Unknown [id number] 2.16.840.1.813394.3.579. 2.903 1998 Unknown [id number] 2.16.840.1.104546.3.579. 2.903 1998 Unknown [id number] 2.16.840.1.523592.3.579. 2.903 1998 Unknown [id number] 2.16.840.1.636387.3.579. 2.903 1998 Unknown [id number] 2.16.840.1.761299.3.579. 2.903 1998 Unknown [id number] 2.16.840.1.390066.3.579. 2.903 1998 Unknown [id number] 2.16.840.1.027188.3.579. 2.903 Medicaid MEDICAID [facility]IC[facility] xxxxxxxxxxxx Effective for all dates xxxxxxxxxxxx [id number]. 2.7.3.655088.315 Medicaid MEDICAID [facility]IC[facility] [id number] Effective for all dates [id number] 1.2.840.464671.1.13.385. 2.7.3.373063.315 Unknown [id number] 2.16.840.1.398131.3.579. 2.462 Unknown [id number] 2.16.840.1.099377.3.579. 2.462 Unknown [id number] 2.16.840.1.732789.3.579. 2.462 Social History Date Type Detail Facility Start: 06-03-2019 End: 12-12-2023 Tobacco smoking status NHIS Current every day smoker [facility] Work Phone: History of tobacco use Cigarette Smoker M [place], [place] Start: 06-03-2019 End: 08-21-2023 Cigarettes smoked current (pack per day) - Reported [facility] Start: 06-03-2019 Alcohol intake Current drinker of alcohol (finding) [place], [place] Start: 08-14-2018 Alcohol Comment Up to 24 ounces at a time [place], [place] Start: 1998 Sex Assigned At Not on file [place], [place] Start: 11-14-2019 End: 02-10-2025 Alcohol intake Ex-drinker (finding) [facility] Exposure to SARS-CoV -2 (event) Not sure [facility] Start: 11-20-2019 End: 12-12-2023 Tobacco use and exposure Never used [facility] Start: 08-24-2021 End: 10-02-2021 Tobacco smoking status NHIS Unknown if ever smoked [facility] Work Phone: Start: 2000 Sex Assigned At Male [facility] Work Phone: Start: 01-04-2020 End: 08-21-2023 Gender identity Not on file [facility] Has the electric, ga s, oil, or water company threatened to shut off services in your home in past 12Mo No [facility] Adult Depression Screening Assessment 0 [facility] (I/We) worried wheth er (my/our) food would run out before (I/we) got money to buy more. Never true [facility] Start: 08-24-2023 Alcohol Comment anually [facility] Start: 01-06-2019 Gender identity Identifies as male gender (finding) [facility] Start: 10-20-2019 Sexual orientation Heterosexual (finding) [facility] Mental Status Date Assessment Result Facility 10-02-2021 Cognitive function Voice/Name [facility] Work Phone: 08-24-2021 Cognitive function Level Of Cons ciousness Awake;Alert;Appropriate;Follow s Commands [facility] Work Phone: Clinical Notes 11-01-2021 to 02-10-2025 Patient InstructionsCharles Sequeira MD - 02/10/2025 11:00 AM EDTPatient InstructionsCharles Sequeira MD - 12/25/2024 2:30 PM EDTPatient InstructionsPatient Instructions Note Date & Type Note Facility 02-10-2025 Instructions Charles Sequeira MD - 02/10/2025 11:40 AM EDT Labs on the way out. Till we review results, please keep on same methimazole dose 10 mg daily. Please call the office if you don't hear back from us within 1 week. Let's decrease and stop the propranolol gradually: For next 2 weeks, take propranolol 10 mg 3 times daily, then 10 mg 2 times daily for 2 weeks, then 10 mg daily for 2 weeks, then stop it. Hold the dose if blood pressure is <100/60 mg/dl. I defer further management of your high blood pressure to your primary/facility doctor. Methimazole: -This medicine is usually well tolerated, but you need to be aware of possible side effects including decrease in blood cell counts, liver dysfunction, joint/muscle aches, rash, nausea, altered taste sensation. -Let me know if you develop sore throat, fever, any infection, abdominal pain/bloating, loss of appetite, nausea, vomiting, change in urine/stool color, yellowish eye discoloration (if, so you will also need to hold methimazole transiently till we make sure your labs are good). Let me know if you develop any concerning side effects otherwise. documented in this encounter [facility] 02-10-2025 History of Present illness Narrative Images from the original note were not included. Reason for visit/chief complaint: Graves' disease Date: 02/10/2025 Referring Provider: No ref. provider found Primary Care Provider: Amadeo Silver MD HPI: Interval hx/subjective: 02/10/2025: Current med list includes MMI 10 mg daily and propranolol 20 mg tid with instructions to hold if BP <100/60. No biotin/MVI/B-complex. No side effects with MMI. Has been taking medications regularly. No significant fatigue, palpitations, tremors. Bms are normal. No heat/cold intolerance. Has been gaining weight. No bulging eyes/double vision, red/dry eyes. He smokes. No neck lumps/pain or compressive symptoms. 12/25/2024: Med list includes MMI 10 mg daily (no side effects) and propranolol 40 mg q8h PRN for HR >90 if BP >100/60, no biotin/MVI/B-complex. Per Facility vitals, HR has been 60s-120s. No significant fatigue, palpitations, tremors. Bms are normal. No heat/cold intolerance. Bms are normal. Weight has been stable. No bulging eyes/double vision, red/dry eyes. He smokes. No neck lumps/pain or compressive symptoms. 10/23/2024: Med list includes MMI 10 mg daily and propranolol 40 mg q8h PRN for HR >90 if BP >100/60. No side effects with MMI. No dizziness. No fatigue, denies palpitations, tremors. Bms are normal. Denies heat/cold intolerance. Weight has been stable; he thinks weight fluctuates within the same range. No bulging eyes/double vision, red/dry eyes. He smokes. No neck lumps/pain or compressive symptoms. BP and HR ranged between low, normal and high. 09/10/2024: MMI dose was recommended to be decreased to 10 mg daily (from average 12.5 mg daily) in ~mid July 2024, but current med list shows MMI dose of 5 mg daily since that time (called facility and verified dosage). Also includes propranolol 40 mg q8h PRN for HR >90 and to hold if BP <100/60. HR over the last week has been ranging 60s-130. No side effects with MMI. No fatigue, denies palpitations, tremors. Bms are normal. Denies heat/cold intolerance. Weight has been stable; he thinks weight fluctuates within the same range. No bulging eyes/double vision, red/dry eyes. He smokes. No neck lumps/pain or compressive symptoms. 05/15/2024: Currently on MMI 10 alternating with 15 mg every other day, average daily dose 12.5 mg (well tolerated with no side effects), and propranolol 40 mg q8h PRN fir HR >90 if BP <100/60. No fatigue, palpitations, tremors, heat/cold intolerance. Bms are normal. No hair loss/dry skin. Has been gaining weight as he has been eating more. No bulging eyes/double vision, red/dry eyes. He smokes. No neck lumps/pain or compressive symptoms. No vitals received from facility today. 04/01/2024: MMI dose was decreased from 15 to 10 mg daily around 02/23, then recommended to be increased to 10 mg alternating with 15 mg every other day (average daily dose would be 12.5 mg) in early 03/2024 (12/6-7)as TSH was going down with high FT4/FT3. Takes propranolol 40 mg tid. Medication list includes Depakote, olanzapine. No fatigue, palpitations, tremors, heat/cold intolerance. Bms are normal. No hair loss/dry skin, weight has been stable. No abdominal pain, nausea/vomiting. No side effects from MMI. No bulging eyes/double vision, red/dry eyes. He smokes. No neck lumps/pain or compressive symptoms. Only recent vitals were sent; HR 105, BP 120/83 01/30/2024: He has been on MMI; dose was changed to 15 mg daily (starting 01/14), has been taking propranolol 60 mg tid. No side effects from MMI. No dizziness. No fatigue, palpitations, tremors, heat/cold intolerance. Bms are normal. No dry skin/hair loss. Says weight is stable, but per chart he has been gaining some weight. Says mood is more stable. He smokes. No double vision, bulging eyes, red/dry eyes. No neck lumps/pain or compressive symptoms. Medication list includes Depakote, haloperidol PRN, olanzapine. 12/12/23: He is currently residing at [facility] in [facility], ph [phone]--he has been there since discharge from the hospital. Most recent labs: 12/05/23 : TSH 0.4 (0.27-4.2), free T4 1.40 (0.93-1.7), total T3 328.2 (80-200), alkaline phosphatase 283 (40-129), ALT 39 (0-41), AST 75 (0-40), other LFTs unremarkable. (While taking methimazole: 10 mg, propanolol: 60 mg TID). He is currently taking Methimazole 10 mg BID since 12/11/23 and propanolol 60 mg tid since 11/02/23. Mr. Carlton endorses No fatigue, cold intolerance, constipation, dry skin, hair loss, muscle weakness/pain, palpitations, tremors, diarrhea/hyperdefecation, heat intolerance, excessive anxiety/nervousness. He has gained weight--feels appropriate for him. He has No red/dry eyes, bulging eyes, or double vision. He denies dizziness/orthostasis. He denies recent infections/fever/n/v, change in stool color or skin/eye color, no rashed. In regards to mechanical/obstructive symptoms, He endorses No neck lump/swelling, neck pain, dysphagia, choking on food, voice changes, or pressure/choking sensation. VS review from facility records from info faxed yesterday: For the past 7-10days: Blood pressure for the past 7 to 10 days has ranged from 94-153/72-100, more often 120s to 130s/80s Pulse for the past 7 to 10 days-82-119, most often in the 80s. 10/31/23: He is currently residing at [facility] in [facility], ph [phone]--he has been there since discharge from the hospital. Labs have been completed outside after hospitalization. 10/01/23 labs TSH remained suppressed with FT4 top of normal, no T3 available. Patient's free T4 on the most recent labs on 10/11/23 was in the upper normal range; no TSH or T3 level available. His vital signs have been relatively stable with HR and BP intermittently elevated but not consistently. He is presently taking methimazole 20 mg 3 times daily and propranolol 80 mg every 8 hours. He denies nausea, vomiting, abdominal pain, change in skin color, rashes, recent fevers or infections. Denies dizziness or shortness of breath or chest pain. Mr. Carlton endorses No fatigue, cold intolerance, constipation, dry skin, hair loss, muscle weakness/pain, palpitations, tremors, diarrhea/hyperdefecation, heat intolerance, excessive anxiety/nervousness. He has gained weight. He has No red/dry eyes, bulging eyes, or double vision. In regards to mechanical/obstructive symptoms, He endorses No neck lump/swelling, neck pain, dysphagia, choking on food, voice changes, or pressure/choking sensation. VS review from facility records: For the past 7 days: blood pressure range: 103-176/56-122, most readings are in the 120s and 130s/78-90s Heart rate range: 75 -110, mostly in the 80s for the past week. No biotin supplements. Risk factors: -Hx of autoimmune diseases: none other than thyroid known -Family hx of thyroid disease/cancer: unknown -Hx of thyroid surgery: no -Hx of high risk/interfering medications: no -Recent URI/: no:/na -Hx of head/neck irradiation: no -Smoking: yes Background: Mr. Carlton is a 23 y.o. male with a history of schizoaffective disorder/severe bipolar mood extremes (mostly flor but also some past episodes of depression with suicidality), paranoid psychosis, hyperthyroidism, and history of illicit substance use who is here for a follow-up visit of Graves' disease. He was initially seen by [facility] endocrinology in October of 2019 during a hospitalization for psychiatric care and was diagnosed with Graves disease at that time. He was started on methimazole in October of 2019. He did show improvement in status taking methimazole but he was lost to follow up after 02/2020 outpatient endocrinology visit. We did not see him again until the recent hospitalization, admitted 08/18/23-09/25/23, for schizoaffective disorder and hyperthyroidism/thyroid storm. He has a history of refusing treatment/medications for psychiatric and thyroid conditions. Labs upon presentation to the hospital on 08/18/23 TSH 0.05, FT4 >7.7, T4 19.8. Patient was treated with methimazole 20 mg 3 times daily, propranolol 80 mg every 6- 8 hours, IV hydrocortisone, SSKI drops during the hospital stay. His labs did gradually improve during the hospitalization but remained hyperthyroid. He did have mild increase in LFTs during the hospital stay. Labs at discharge from hospital: 09/24/2023: AST 21, ALT 28, alkaline phosphatase 215, total bilirubin less than 0.2, TSH 0.03, free T4 1.4, T3 183. He was discharged to a care facility from the hospital on methimazole 20 mg 3 times daily and propranolol 80 mg every 8 hours. Review of Systems: as per HPI Medical History: Past Medical History: Diagnosis Date ADHD Graves disease Danilo's thyroiditis Hypertension Hyperthyroidism 10/20/2019 Hyperthyroidism Hyperthyroidism Schizo affective schizophrenia (HCC) Schizoaffective disorder (HCC) 10/20/2019 Surgical History: History reviewed. No pertinent surgical history. Family History: Family History Family history unknown: Yes Social History: Social History Socioeconomic History Marital status: Single Tobacco Use Smoking status: Every Day Current packs/day: 1.50 Average packs/day: 1.5 packs/day for 5.0 years (7.5 ttl pk-yrs) Types: Cigarettes Smokeless tobacco: Never Vaping Use Vaping status: Never Used Substance and Sexual Activity Alcohol use: Not Currently Comment: anually Drug use: Yes Types: Marijuana Comment: I don't even smoke pot monthly Sexual activity: Not Currently Social Drivers of Health Food Insecurity: No Food Insecurity (08/21/2023) Hunger Vital Sign Worried About Running Out of Food in the Last Year: Never true Ran Out of Food in the Last Year: Never true Transportation Needs: No Transportation Needs (08/21/2023) PRAPARE - Transportation Lack of Transportation (Medical): No Lack of Transportation (Non-Medical): No Housing Stability: Low Risk (08/21/2023) Housing Stability Vital Sign Unable to Pay for Housing in the Last Year: No Number of Places Lived in the Last Year: 0 Unstable Housing in the Last Year: No Allergies: Allergies Allergen Reactions Grass Pollen-Red Top, Standard Other (See Comments) Watery eyes and sniffles Mite Extract Other (See Comments) Watery eyes and sniffles Current Medications: Current Outpatient Medications Medication Sig Dispense Refill aluminum-magnesium hydroxide-simethicone (MAALOX PLUS) 200-200-20 mg/5 mL Susp Take 30 mL by mouth 4 (four) times a day before meals and nightly . divalproex (DEPAKOTE) 250 MG delayed release (DR) tablet Take 1 (one) tablet (250 mg total) by mouth nightly . 30 tablet 0 ergocalciferol (ERGOCALCIFEROL) 1,250 mcg (50,000 unit) capsule Vitamin D (Ergocalciferol) 1.25 MG(78521 UT), 1 (one) Capsule once a week # 4, 03/23/2020, Ref. x11. Active Oral once a week; Duration: 0 hydroCHLOROthiazide (HYDRODIURIL) 25 MG tablet Take 1 (one) tablet (25 mg total) by mouth daily . hydrOXYzine (ATARAX) 50 MG tablet Take 1 (one) tablet (50 mg total) by mouth every 6 (six) hours . ibuprofen (ADVIL,MOTRIN) 600 MG tablet Ibuprofen 600MG, 1 (one) Tablet two times daily, as needed # 60, 08/20/2020, Ref. x1. Active Oral two times daily, as needed; Duration: 0 lisinopriL (PRINIVIL,ZESTRIL) 10 MG tablet Take by mouth daily . LORazepam (ATIVAN) 1 MG tablet Take 1 (one) tablet (1 mg total) by mouth every 6 (six) hours as needed for anxiety . methIMAzole (TAPAZOLE) 10 MG tablet Take 0.5 (one-half) tablet (5 mg total) by mouth daily . (Patient taking differently: Take 1 (one) tablet (10 mg total) by mouth daily .) 15 tablet 11 OLANZapine (ZYPREXA) 10 MG tablet Take 1 (one) tablet (10 mg total) by mouth 2 (two) times a day . 60 tablet 0 propranoloL (INDERAL) 40 MG tablet Take 1 (one) tablet (40 mg total) by mouth every 8 (eight) hours as needed if HR is >90 and hold if BP < 100/60 . 60 tablet 11 traZODone (DESYREL) 50 MG tablet Take 1 (one) tablet (50 mg total) by mouth nightly as needed for sleep . 30 tablet 0 tuberculin (Tubersol) 5 tub. unit /0.1 mL injection Inject 0.1 mL (5 Units total) into the skin once Sign this order in conjunction with the immunization order to satisfy [place] Board [employer] Pharmacy Positive ID requirements for immunization orders. . divalproex (DEPAKOTE ER) 500 MG 24 hr tablet Take 1 (one) tablet (500 mg total) by mouth 2 (two) times a day . (Patient not taking: Reported on 02/10/2025 .) 60 tablet 0 magnesium hydroxide 400 mg/5 mL Susp Take 30 mL (2,400 mg total) by mouth daily . (Patient not taking: Reported on 02/10/2025 .) metoprolol tartrate (LOPRESSOR) 25 MG tablet Metoprolol Tartrate 25MG, Tablet two times daily # 60, 10/28/2020, No Refill. Active Oral two times daily; Duration: 0 (Patient not taking: Reported on 02/10/2025) paliperidone (INVEGA) 6 MG 24 hr tablet Paliperidone ER( 6MG Oral 1 bedtime ) Active -Hx Entry Oral bedtime; Duration: 0 (Patient not taking: Reported on 02/10/2025) No current facility-administered medications for this visit. Physical Exam: Vitals: BP 111/78 (BP Location: Right arm, Patient Position: Sitting) Pulse 92 Wt 91.6 kg (202 lb) BMI 32.60 kg/m , Body mass index is 32.6 kg/m ., Wt Readings from Last 10 Encounters: 02/10/25 91.6 kg (202 lb) 12/25/24 89.8 kg (198 lb) 09/10/24 89.3 kg (196 lb 14.4 oz) 05/15/24 89.2 kg (196 lb 9.6 oz) 04/01/24 84.9 kg (187 lb 1.6 oz) 01/30/24 84.6 kg (186 lb 8 oz) 12/12/23 81.9 kg (180 lb 9.6 oz) 10/31/23 80.3 kg (177 lb 1.6 oz) 09/19/23 77.9 kg (171 lb 12.8 oz) 08/21/23 54.4 kg (120 lb) General/Constitutional: , well-developed Eyes: no lid retraction (stare), no remarkable proptosis, non-icteric, no congestion Cardiovascular: regular rhythm Pulmonary/Chest: effort normal Neurological: alert and oriented, DTRs normal upper extremities, no remarkable tremors Skin: warm Psychiatric: mildly flat affect, sitting in chair during visit and answers questions appropriately Lab/Imaging Data: Lab Results Component Value Date WBC 7.33 06/20/2024 HGB 13.2 (L) 06/20/2024 HCT 39.9 (L) 06/20/2024 MCV 89.0 12/12/2023 PLT 232 06/20/2024 Lab Results Component Value Date GLUCOSE 91 08/24/2023 NA 141 08/24/2023 K 4.1 08/24/2023 CL 108 08/24/2023 BUN 13 08/24/2023 CREATININE 0.33 (L) 08/24/2023 Lab Results Component Value Date ALT 31 12/12/2023 AST 21 12/12/2023 ALKPHOS 234 (H) 12/12/2023 BILITOT 0.3 12/12/2023 Lab Results Component Value Date TSH 1.209 12/22/2024 [id number] 190 (H) 12/12/2023 THYROIDAB 278.1 (H) 10/19/2019 Lab Results Component Value Date CALCIUM 8.7 08/24/2023 PHOS 5.2 (H) 08/24/2023 Lab Results Component Value Date LDLCALC 39 08/18/2023 CHOL 94 (L) 08/18/2023 HDL 44 08/18/2023 TRIG 56 08/18/2023 CHOLHDL 2.1 08/18/2023 Thyroid US 08/27/2023: COMPARISON: None. TECHNIQUE: Thyroid ultrasound utilizing can-scale and color Doppler analysis. FINDINGS: Enlarged, heterogeneous thyroid gland with diffuse increased vascularity. No suspicious thyroid nodules. Right thyroid lobe measures 8.2 x 2.9 x 3.5 cm (43.5 mL). Isthmus measures 0.9 cm in AP dimension. Left thyroid lobe measures 6.7 x 2.8 x 3.2 cm (31.7 mL). IMPRESSION: Enlarged, heterogeneous thyroid gland with diffuse increased vascularity. No suspicious thyroid nodules identified. 05/14/18: TSI 137% (<=122%) 10/19/19: TSI 5 08/18/23 TSH 0.05, FT4 <7.7, T4 19.8. Alkaline phosphatase 126, AST 25, ALT 47, total bilirubin 0.3. 08/20/23 TSI 2.9, T3 >651 08/23/23 TRAB 29 09/24/2023: AST 21, ALT 28, alkaline phosphatase 215, total bilirubin less than 0.2, TSH 0.03, free T4 1.4, T3 183 09/25/2023: White blood cell count 7.90, hemoglobin 13.3, hematocrit 40.4, neutrophils 41.9, absolute neutrophils 3.32. 10/11/2023: Free T4 1.54 (0.93-1.7), no T3 available. White blood cell count 7.26, neutrophils 2.55 and percentage 35.1- Albumin 4.3, alkaline phosphatase 254 (40-129) albumin 4 ALT 27, AST cannot be analyzed due to hemolysis, total and direct bilirubin within normal limits. 10/01/2023: TSH 0.03 (0.27-4.2), free T4 1.70 (0.93-1.7), white blood cell count 7.22, alkaline phosphatase 213 (40-129), T3 uptake 34 (22-35). 10/11/2023: Free T4 1.54 (0.93-1.7), no T3 available. White blood cell count /neutrophils WNL, Albumin 4.3, alkaline phosphatase 254 (40-129) albumin 4, ALT 27, AST cannot be analyzed due to hemolysis, total and direct bilirubin within normal limits. 10/31/2023:TSH 0.04, free T4 0.3 (0.7-1.7), T3 73 (72-170), alkaline phosphatase 250 (40-140), other LFTs within normal limits, CBC and differential unremarkable. (Methimazole 20 mg 3 times daily, propranolol 80 mg every 8 hours) 11/19/2023: TSH 0.41 (0.27-4.2), free T4 less than 0.11 (0.93-1.7). No T3 done as ordered. Alkaline phosphatase 270 (40-129), other LFTs unremarkable. [T3 uptake was drawn instead of the ordered T3.] (Methimazole 10 mg TID and propanolol 60 mg TID). 11/27/2023: T3 109 (97-169) 12/05/23 labs: TSH 0.4 (0.27-4.2), free T4 1.40 (0.93-1.7), total T3 328.2 (80-200), alkaline phosphatase 283 (40-129), ALT 39 (0-41), AST 75 (0-40), other LFTs unremarkable. (methimazole: 10 mg daily, propanolol: 60 mg TID) 12/12/2023: TSH 0.06, free T4 2.2, T3 190 (72-170), white blood cell count 8.56, monocytes mildly elevated other differential within normal limits, alkaline phosphatase 234 (40-140), AST 21, ALT 31. (Had only anticipated LFT being done but lab ran TFTs as well). 01/07/24: TSH 0.16 (0.27-4.2), FT4 0.37 (0.93-1.7), T3 86.4 (80-200), FT3 2.47 (2-4.4), ALP 185 (40-129), other LFTs WNL. 01/30/2024: TSH 5.94, FT4 0.5, T3 87 02/13/2024: TSH 6.69 (high), FT4 0.45 (low, range 0.93-1.7), FT3 2.74 (range 2-4.4), T3 104 (normal, range 80-200), WBC 7.23, ANC 1.79, immature granulocytes 0.09, Hb 13.4, PLT 217, LFTs normal except for ALP 166 (improving, range 40-129), Ca 8.7, alb 4.3, cr 0.96, eGFR >60 03/17/2024: TSH 0.04, FT4 1.85 (high, range <1.7), FT3 4.51 (high, range <4.4), T3 151 (normal) 04/01/2024: TSH 0.01, FT4 1.4, T3 110, FT3 4.3 (high, range <4.2), LFTs normal, CBC normal but mild inc in abs lymphocytes 4.5 and mono 988 04/11/2024: LFTs normal, CBC with no remarkable penia, mild lymphocytosis, TSH 0.04, FT4 1.56, FT3 4 (normal), T3 134.8 05/15/2024: TSH 0.12, FT4 1.1, T3 100, CBC with mildlymphocytosis and monocytosis as before 06/20/2024: TSH 0.12, FT4 1.22, FT3 3.21 07/21/2024: TSH 1.63, FT4 0.67 (low, range 0.93-1.7), T3 90 (range 80-200), FT3 2.31 (range 2-4.4), T4 4.41 (low, range 4.5-11.7), WBC 8.34, N 3.21, PLT 257, Hb 14.4 immature granulocytes <0.03 (high), LFTs normal, K 4.5, cr 0.74, eGFR >60 08/13/2024: TSH 0.32 (range 0.27-4.2), FT4 1.26 (range 0.93-1.7), T3 98.3 (range 80-200), FT3 3.03 (range 2-4.4) 09/10/2024: TSH 0.01, FT4 2.7, T3 201, FT3 6.7, TSI 169 (high), TRAb 7.53 (high) 10/01/2024: TSH 0.04, FT4 2.17 (high, range <1.7), FT3 4.67 (high, range 4.4), T3 146 (normal) 10/23/24: TSH 0.01, FT4 1.4, T3 87, FT3 3.8 11/10/2024: TSH 0.25, FT4 1.23, T3 85.9, FT3 2.76 (all normal except TSH) 12/22/2024: TSH 1.209, FT4 index 5.36 (normal), total T4 6.33 (normal), FT3 2.5 (range 2.5-3.9) 01/19/2025: TSH 2.223, FT4 0.82 (r 0.6-1.7), T3 0.71 (low, r >0.8), FT3 2.2 (low, r >2.5) Assessment and plan: Mr. Carlton is a 24 y.o. male with a history of schizoaffective disorder/severe bipolar mood extremes (mostly flor but also some past episodes of depression with suicidality), paranoid psychosis, hyperthyroidism, and history of illicit substance use. He is here for a follow-up visit of Graves' disease/hyperthyroidism. Graves' disease was diagnosed in October 2019 and he was started on methimazole. The patient was lost to follow-up soon after treatment was started. He was not seen again until he was recently admitted to the hospital 08/18/23-09/25/23 for schizoaffective disorder and thyroid storm. During the hospitalization he was treated with methimazole, Propranolol, IV hydrocortisone and SSKI drops. 10/31/2023: He was discharged from the hospital on methimazole 20 mg 3 times daily and propranolol 80 mg 3 times daily. He continues on the same regimen. He is living in a healthcare facility and thus has been getting his medications regularly. He reports he has no symptoms of hyperthyroidism, he denies any complaints. He has a minimal tremor of outstretched hands, he has overall gained a good bit of weight since prior to initiation of methimazole during the hospital stay and he has gained approximately 6 pounds since discharged from the hospital. His vital signs have been relatively stable with heart rate recently most often in the 80s and blood pressure readings more often controlled and sometimes mildly elevated. His most recent TFTs on October 11, 2023 have shown improvement with his free T4 into the upper normal range. His last TSH on October 01, 2023 remained suppressed. Patient's liver function tests have been mildly elevated, specifically the alkaline phosphatase. This may be related to hyperthyroidism itself with increased bone turnover. Plan: -Repeat TSH, free T4, T3, hepatic function panel, CBC today. -At present continue methimazole 20 mg 3 times daily. Anticipate will reduce methimazole after labs reviewed. -Continue propranolol 80 mg 3 times daily. Will continue to monitor vital signs closely, twice daily, as would expect we will need may need to reduce the propranolol soon. -Will continue to monitor liver function tests and can tolerate levels that are less than 3 times the upper limit of normal with close monitoring. Will send orders to the facility once we have lab results back. Facility: [facility], Patient notes he will likely be there a while longer. 12/12/2023: Labs have been done between visits with medication adjustments. 11/19/23 labs showed FT4 less than 0.11 with TSH in the low normal range (no T3 was done as ordered at that time)--methimazole was reduced from 10 mg tid to 10 mg daily. T3 was done 11/27/23--low normal range. Most recent labs: 12/05/23 : TSH 0.4 (0.27-4.2), free T4 1.40 (0.93-1.7), total T3 328.2 (80-200), alkaline phosphatase 283 (40-129), ALT 39 (0-41), AST 75 (0-40), other LFTs unremarkable. (While taking methimazole: 10 mg, propanolol: 60 mg TID). Improvement noted in labs with normalization of FT4 and TSH and T3 elevated; methimazole was increased to 10 mg BID on 12/11/23. He is currently taking Methimazole 10 mg BID since 12/11/23 and propanolol 60 mg tid since 11/02/23. The methimazole was increased just yesterday. He denies symptoms of hyperthyroidism/hypothyroidism; denies adverse medication side effects. His LFTs remain mildly elevated with AST elevation on labs last week. Alk phos elevation stable. He continues with heart rate occ elevated and more often in 80s/some 90s and BP more often slightly elevated. Would have expected to need to further decrease propanolol by this point. He denies pre-existing HTN. Plan: Continue plan from 12/11/23 TC with facility, continue methimazole 10 mg BID and current propanolol 60 mg TID. -repeat hepatic function panel today to continue trending. Facility will not need to collect later this week as planned yesterday. -TSH, T3, FT3, FT4 and hepatic function panel to be done in ~4 weeks, facility already has these orders. And to send vitals/current med list with lab results once available. Patient advised of possible adverse medication side effects to report and to notify me if develops such. And will continue to monitor vitals daily. Patient to report dizziness, increased fatigue if occurring as well as change in symptom that may indicate thyroid level abnormality in the meantime. Instructions provided to patient and facility staff accompanying patient today Post visit 12/12/23: Hepatic function received and alkaline phosphatase stable with improved AST noted. Lab rate and TFTs also, had only intended for hepatic function panel today but prior order was evidently in the system. Trend in TFTs since last week supports the need for the increase methimazole dose. 01/30/2024: Labs on 01/07/2024 showed improvement in LFTs with ALT/AST in normal range and decrease in ALP (still above normal though but <1.5 times ULN this time). TFTs showed low FT4. Low normal T3 and mildly low TSH 0.16 this time (compared to lower TSH 0.06 in 11/2023). MMI dose was advised to be decreased from 10 mg bid to 15 mg daily in late 12/2023, and to continue propranolol 60 mg tid. Will repeat labs today since patient is here, but that will be only 2 weeks after the last change, but will give an idea how labs are trending. Counseled him on smoking cessation and effect on eyes in [place]. Counseled on MMI precautions. Printed standing orders for repeat labs as needed down the road. BP and HR seem to be ok on current propranolol, but will consider decreasing the dose if TFTs are stable within normal range. 04/01/2024: MMI dose was decreased from 15 to 10 mg daily around 02/23, then recommended to be increased to 10 mg alternating with 15 mg every other day (average daily dose would be 12.5 mg) in early 03/2024 as TSH was going down with high FT4/FT3. Will get labs repeated today ~10 days after last dose change since he seems to be very sensitive to dose changes. Increased propranolol dose to 60 mg tid; goal resting HR <90 as long as BP is fine; provided them with instructions in that regard. He may need to see cardiology if there is still tachycardia is persistent despite normal TFTs (not yet so far). Will repeat LFTs (had high but improving ALP in last labs in 01/2024) and CBC with labs today (had some immature granulocytes in last CBC and he was recommended to f/u with PCP). Counseled on smoking cessation and to see the eye doctor in case of eye changes. 05/15/2024: Repeat labs in 04/01 showed slighlt high FT3 with TSH 0.01, then 04/11/2024 labs showed normal FT4/T3/FT3 with low TSH 0.04. He was recommended to keep on same MMI dose 10 alternating with 15 mg every other day, average daily dose 12.5 mg. Will repeat labs now to see they are trending (keep on same MMI dose till we get results). LFTs were normal in 03/2024 and CBC with no remarkable penia with mild lymphocytosis. Will repeat CBC with labs. Keep on same propranolol regimen (40 mg q8h PRN fir HR >90 if BP <100/60). Discussed with patient that we may need definitive treatment with SEXTON or surgery if levels continue to fluctuate, but would probably wait till at least the 1 yr lee on MMI hoping he may achieve remission. Counseled on smoking cessation. 09/10/2024: MMI was kept at same dose after 04/2024 labs but then recommended to be decreased to 10 mg daily after labs in 07/2024 showed low FT4 with normal TSH. However, dose was decreased to 5 mg daily, and repeat labs in late July showed normal TFTs but low normal TSH. I expect that we will need to increase dose but will repeat labs now (along with Abs since it has been a year) before adjusting dose. I recommend that tachycardia be evaluated by the facility doctor or primary doctor as it doesn't seem to be necessarily related to the thyroid as heart rate would still be high when thyroid functions are normal or low. 10/23/2024: Labs after visit in 08/2024 showed high TFTs as expected. Dose of MMI was advised to be increased back to 10 mg daily. He had labs after ~3 weeks showing an improvement. TRAb/TSI were still high. We will recheck labs today. Until we get result, will keep on MMI 10 mg daily. I decreased propranolol dose to 20 mg PRN q8h given the low BP sometimes. I counseled patient on MMI precautions, and smoking cessation. When discussed other possible lines of treatment (SEXTON/surgery), he preferred to keep on MMI at this time. 12/25/2024: Labs on 10/23 then 11/10 showed normal FT4 and T3 with improvement of TSH 0.01 --> 0.25. He was kept on same MMI dose 10 mg daily. Labs in 12/2024 show normal TFTs. Will keep on same MMI dose and repeat labs in 1 more month to make sure they will remain stable (specially that FT3 is low normal now). Counseled on MMI precautions. 02/10/2025: Labs in early 01/2025 show normal TSH and low normal FT4 but low T3/FT3. Will repeat labs here today before deciding on further adjustments in dose. In meantime, keep on same MMI 10 mg daily. Counseled on smoking cessation. For next 2 weeks, take propranolol 10 mg 3 times daily, then 10 mg 2 times daily for 2 weeks, then 10 mg daily for 2 weeks, then stop it. Hold the dose if blood pressure is <100/60 mg/dl. I defer further management of your high blood pressure to your primary/facility doctor. Return in about 6 weeks (around 03/24/2025) for Graves f/u. Charles Sequeira MD Endocrinology documented in this encounter [facility] 02-10-2025 Note Reason for visit/chi ef complaint: Graves' disease Date: 02/10/2025 Referring Provider: No ref. provider found Primary Care Provider: Amadeo Silver MD HPI: Interval hx/subjective: 02/10/2025: Current med list includes MMI 10 mg daily and propranolol 20 mg tid with instructions to hold if BP <100/60. No biotin/MVI/B-complex. No side effects with MMI. Has been taking medications regularly. No significant fatigue, palpitations, tremors. Bms are normal. No heat/cold intolerance. Has been gaining weight. No bulging eyes/double vision, red/dry eyes. He smokes. No neck lumps/pain or compressive symptoms. 12/25/2024: Med list includes MMI 10 mg daily (no side effects) and propranolol 40 mg q8h PRN for HR >90 if BP >100/60, no biotin/MVI/B-complex. Per Facility vitals, HR has been 60s-120s. No significant fatigue, palpitations, tremors. Bms are normal. No heat/cold intolerance. Bms are normal. Weight has been stable. No bulging eyes/double vision, red/dry eyes. He smokes. No neck lumps/pain or compressive symptoms. 10/23/2024: Med list includes MMI 10 mg daily and propranolol 40 mg q8h PRN for HR >90 if BP >100/60. No side effects with MMI. No dizziness. No fatigue, denies palpitations, tremors. Bms are normal. Denies heat/cold intolerance. Weight has been stable; he thinks weight fluctuates within the same range. No bulging eyes/double vision, red/dry eyes. He smokes. No neck lumps/pain or compressive symptoms. BP and HR ranged between low, normal and high. 09/10/2024: MMI dose was recommended to be decreased to 10 mg daily (from average 12.5 mg daily) in ~mid July 2024, but current med list shows MMI dose of 5 mg daily since that time (called facility and verified dosage). Also includes propranolol 40 mg q8h PRN for HR >90 and to hold if BP <100/60. HR over the last week has been ranging 60s-130. No side effects with MMI. No fatigue, denies palpitations, tremors. Bms are normal. Denies heat/cold intolerance. Weight has been stable; he thinks weight fluctuates within the same range. No bulging eyes/double vision, red/dry eyes. He smokes. No neck lumps/pain or compressive symptoms. 05/15/2024: Currently on MMI 10 alternating with 15 mg every other day, average daily dose 12.5 mg (well tolerated with no side effects), and propranolol 40 mg q8h PRN fir HR >90 if BP <100/60. No fatigue, palpitations, tremors, heat/cold intolerance. Bms are normal. No hair loss/dry skin. Has been gaining weight as he has been eating more. No bulging eyes/double vision, red/dry eyes. He smokes. No neck lumps/pain or compressive symptoms. No vitals received from facility today. 04/01/2024: MMI dose was decreased from 15 to 10 mg daily around 02/23, then recommended to be increased to 10 mg alternating with 15 mg every other day (average daily dose would be 12.5 mg) in early 03/2024 (03/21-)as TSH was going down with high FT4/FT3. Takes propranolol 40 mg tid. Medication list includes Depakote, olanzapine. No fatigue, palpitations, tremors, heat/cold intolerance. Bms are normal. No hair loss/dry skin, weight has been stable. No abdominal pain, nausea/vomiting. No side effects from MMI. No bulging eyes/double vision, red/dry eyes. He smokes. No neck lumps/pain or compressive symptoms. Only recent vitals were sent; HR 105, BP 120/83 01/30/2024: He has been on MMI; dose was changed to 15 mg daily (starting 01/14), has been taking propranolol 60 mg tid. No side effects from MMI. No dizziness. No fatigue, palpitations, tremors, heat/cold intolerance. Bms are normal. No dry skin/hair loss. Says weight is stable, but per chart he has been gaining some weight. Says mood is more stable. He smokes. No double vision, bulging eyes, red/dry eyes. No neck lumps/pain or compressive symptoms. Medication list includes Depakote, haloperidol PRN, olanzapine. 12/12/23: He is currently residing at [facility] in [facility] ph [phone]--he has been there since discharge from the hospital. Most recent labs: 12/05/23 : TSH 0.4 (0.27-4.2), free T4 1.40 (0.93-1.7), total T3 328.2 (80-200), alkaline phosphatase 283 (40-129), ALT 39 (0-41), AST 75 (0-40), other LFTs unremarkable. (While taking methimazole: 10 mg, propanolol: 60 mg TID). He is currently taking Methimazole 10 mg BID since 12/11/23 and propanolol 60 mg tid since 11/02/23. Mr. Carlton endorses No fatigue, cold intolerance, constipation, dry skin, hair loss, muscle weakness/pain, palpitations, tremors, diarrhea/hyperdefecation, heat intolerance, excessive anxiety/nervousness. He has gained weight--feels appropriate for him. He has No red/dry eyes, bulging eyes, or double vision. He denies dizziness/orthostasis. He denies recent infections/fever/n/v, change in stool color or skin/eye color, no rashed. In regards to mechanical/obstructive symptoms, He endorses No neck lump/swelling, neck pain, dysphagia, choking on food, voice changes, or pressure/choking (more content not included)... [facility] 12-25-2024 Instructions Charles Sequeira MD - 12/25/2024 3:04 PM EDT Keep on same methimazole dose. Please have labs repeated in 1 month before next visit with me (TSH, free T4, free T3, and total T3). Those were printed today. Let me know sooner in case of change in symptoms (significant fatigue, racing heart, tremors, change in bowel movements, feeling colder/warmer, remarkable weight change,..). Let me know sooner if there is change in neck symptoms like enlarging neck lump, new/worsening difficulty swallowing, voice changes, choking/pressure sensation. Methimazole: -This medicine is usually well tolerated, but you need to be aware of possible side effects including decrease in blood cell counts, liver dysfunction, joint/muscle aches, rash, nausea, altered taste sensation. -Let me know if you develop sore throat, fever, any infection, abdominal pain/bloating, loss of appetite, nausea, vomiting, change in urine/stool color, yellowish eye discoloration (if, so you will also need to hold methimazole transiently till we make sure your labs are good). Let me know if you develop any concerning side effects otherwise. documented in this encounter [facility] 12-25-2024 History of Present illness Narrative Images from the original note were not included. Reason for visit/chief complaint: Graves' disease Date: 12/25/2024 Referring Provider: No ref. provider found Primary Care Provider: Amadeo Silver MD HPI: Interval hx/subjective: 12/25/2024: Med list includes MMI 10 mg daily (no side effects) and propranolol 40 mg q8h PRN for HR >90 if BP >100/60, no biotin/MVI/B-complex. Per Facility vitals, HR has been 60s-120s. No significant fatigue, palpitations, tremors. Bms are normal. No heat/cold intolerance. Bms are normal. Weight has been stable. No bulging eyes/double vision, red/dry eyes. He smokes. No neck lumps/pain or compressive symptoms. 10/23/2024: Med list includes MMI 10 mg daily and propranolol 40 mg q8h PRN for HR >90 if BP >100/60. No side effects with MMI. No dizziness. No fatigue, denies palpitations, tremors. Bms are normal. Denies heat/cold intolerance. Weight has been stable; he thinks weight fluctuates within the same range. No bulging eyes/double vision, red/dry eyes. He smokes. No neck lumps/pain or compressive symptoms. BP and HR ranged between low, normal and high. 09/10/2024: MMI dose was recommended to be decreased to 10 mg daily (from average 12.5 mg daily) in ~mid July 2024, but current med list shows MMI dose of 5 mg daily since that time (called facility and verified dosage). Also includes propranolol 40 mg q8h PRN for HR >90 and to hold if BP <100/60. HR over the last week has been ranging 60s-130. No side effects with MMI. No fatigue, denies palpitations, tremors. Bms are normal. Denies heat/cold intolerance. Weight has been stable; he thinks weight fluctuates within the same range. No bulging eyes/double vision, red/dry eyes. He smokes. No neck lumps/pain or compressive symptoms. 05/15/2024: Currently on MMI 10 alternating with 15 mg every other day, average daily dose 12.5 mg (well tolerated with no side effects), and propranolol 40 mg q8h PRN fir HR >90 if BP <100/60. No fatigue, palpitations, tremors, heat/cold intolerance. Bms are normal. No hair loss/dry skin. Has been gaining weight as he has been eating more. No bulging eyes/double vision, red/dry eyes. He smokes. No neck lumps/pain or compressive symptoms. No vitals received from facility today. 04/01/2024: MMI dose was decreased from 15 to 10 mg daily around 02/23, then recommended to be increased to 10 mg alternating with 15 mg every other day (average daily dose would be 12.5 mg) in early 03/2024 (126-7)as TSH was going down with high FT4/FT3. Takes propranolol 40 mg tid. Medication list includes Depakote, olanzapine. No fatigue, palpitations, tremors, heat/cold intolerance. Bms are normal. No hair loss/dry skin, weight has been stable. No abdominal pain, nausea/vomiting. No side effects from MMI. No bulging eyes/double vision, red/dry eyes. He smokes. No neck lumps/pain or compressive symptoms. Only recent vitals were sent; HR 105, BP 120/83 01/30/2024: He has been on MMI; dose was changed to 15 mg daily (starting 01/14), has been taking propranolol 60 mg tid. No side effects from MMI. No dizziness. No fatigue, palpitations, tremors, heat/cold intolerance. Bms are normal. No dry skin/hair loss. Says weight is stable, but per chart he has been gaining some weight. Says mood is more stable. He smokes. No double vision, bulging eyes, red/dry eyes. No neck lumps/pain or compressive symptoms. Medication list includes Depakote, haloperidol PRN, olanzapine. 12/12/23: He is currently residing at [facility] in [facility], ph [phone]--he has been there since discharge from the hospital. Most recent labs: 12/05/23 : TSH 0.4 (0.27-4.2), free T4 1.40 (0.93-1.7), total T3 328.2 (80-200), alkaline phosphatase 283 (40-129), ALT 39 (0-41), AST 75 (0-40), other LFTs unremarkable. (While taking methimazole: 10 mg, propanolol: 60 mg TID). He is currently taking Methimazole 10 mg BID since 12/11/23 and propanolol 60 mg tid since 11/02/23. Mr. Carlton endorses No fatigue, cold intolerance, constipation, dry skin, hair loss, muscle weakness/pain, palpitations, tremors, diarrhea/hyperdefecation, heat intolerance, excessive anxiety/nervousness. He has gained weight--feels appropriate for him. He has No red/dry eyes, bulging eyes, or double vision. He denies dizziness/orthostasis. He denies recent infections/fever/n/v, change in stool color or skin/eye color, no rashed. In regards to mechanical/obstructive symptoms, He endorses No neck lump/swelling, neck pain, dysphagia, choking on food, voice changes, or pressure/choking sensation. VS review from facility records from info faxed yesterday: For the past 7-10days: Blood pressure for the past 7 to 10 days has ranged from 94-153/72-100, more often 120s to 130s/80s Pulse for the past 7 to 10 days-82-119, most often in the 80s. 10/31/23: He is currently residing at [facility] in [facility], ph [phone]--he has been there since discharge from the hospital. Labs have been completed outside after hospitalization. 10/01/23 labs TSH remained suppressed with FT4 top of normal, no T3 available. Patient's free T4 on the most recent labs on 10/11/23 was in the upper normal range; no TSH or T3 level available. His vital signs have been relatively stable with HR and BP intermittently elevated but not consistently. He is presently taking methimazole 20 mg 3 times daily and propranolol 80 mg every 8 hours. He denies nausea, vomiting, abdominal pain, change in skin color, rashes, recent fevers or infections. Denies dizziness or shortness of breath or chest pain. Mr. Carlton endorses No fatigue, cold intolerance, constipation, dry skin, hair loss, muscle weakness/pain, palpitations, tremors, diarrhea/hyperdefecation, heat intolerance, excessive anxiety/nervousness. He has gained weight. He has No red/dry eyes, bulging eyes, or double vision. In regards to mechanical/obstructive symptoms, He endorses No neck lump/swelling, neck pain, dysphagia, choking on food, voice changes, or pressure/choking sensation. VS review from facility records: For the past 7 days: blood pressure range: 103-176/56-122, most readings are in the 120s and 130s/78-90s Heart rate range: 75 -110, mostly in the 80s for the past week. No biotin supplements. Risk factors: -Hx of autoimmune diseases: none other than thyroid known -Family hx of thyroid disease/cancer: unknown -Hx of thyroid surgery: no -Hx of high risk/interfering medications: no -Recent URI/: no:/na -Hx of head/neck irradiation: no -Smoking: yes Background: Mr. Carlton is a 23 y.o. male with a history of schizoaffective disorder/severe bipolar mood extremes (mostly flor but also some past episodes of depression with suicidality), paranoid psychosis, hyperthyroidism, and history of illicit substance use who is here for a follow-up visit of Graves' disease. He was initially seen by [facility] endocrinology in October of 2019 during a hospitalization for psychiatric care and was diagnosed with Graves disease at that time. He was started on methimazole in October of 2019. He did show improvement in status taking methimazole but he was lost to follow up after 02/2020 outpatient endocrinology visit. We did not see him again until the recent hospitalization, admitted 08/18/23-09/25/23, for schizoaffective disorder and hyperthyroidism/thyroid storm. He has a history of refusing treatment/medications for psychiatric and thyroid conditions. Labs upon presentation to the hospital on 08/18/23 TSH 0.05, FT4 >7.7, T4 19.8. Patient was treated with methimazole 20 mg 3 times daily, propranolol 80 mg every 6- 8 hours, IV hydrocortisone, SSKI drops during the hospital stay. His labs did gradually improve during the hospitalization but remained hyperthyroid. He did have mild increase in LFTs during the hospital stay. Labs at discharge from hospital: 09/24/2023: AST 21, ALT 28, alkaline phosphatase 215, total bilirubin less than 0.2, TSH 0.03, free T4 1.4, T3 183. He was discharged to a care facility from the hospital on methimazole 20 mg 3 times daily and propranolol 80 mg every 8 hours. Review of Systems: as per HPI Medical History: Past Medical History: Diagnosis Date ADHD Graves disease Danilo's thyroiditis Hypertension Hyperthyroidism 10/20/2019 Hyperthyroidism Hyperthyroidism Schizo affective schizophrenia (HCC) Schizoaffective disorder (HCC) 10/20/2019 Surgical History: History reviewed. No pertinent surgical history. Family History: Family History Family history unknown: Yes Social History: Social History Socioeconomic History Marital status: Single Tobacco Use Smoking status: Every Day Current packs/day: 1.50 Average packs/day: 1.5 packs/day for 5.0 years (7.5 ttl pk-yrs) Types: Cigarettes Smokeless tobacco: Never Vaping Use Vaping status: Never Used Substance and Sexual Activity Alcohol use: Not Currently Comment: anually Drug use: Yes Types: Marijuana Comment: I don't even smoke pot monthly Sexual activity: Not Currently Social Drivers of Health Food Insecurity: No Food Insecurity (08/21/2023) Hunger Vital Sign Worried About Running Out of Food in the Last Year: Never true Ran Out of Food in the Last Year: Never true Transportation Needs: No Transportation Needs (08/21/2023) PRAPARE - Transportation Lack of Transportation (Medical): No Lack of Transportation (Non-Medical): No Housing Stability: Low Risk (08/21/2023) Housing Stability Vital Sign Unable to Pay for Housing in the Last Year: No Number of Places Lived in the Last Year: 0 Unstable Housing in the Last Year: No Allergies: Allergies Allergen Reactions Grass Pollen-Red Top, Standard Other (See Comments) Watery eyes and sniffles Mite Extract Other (See Comments) Watery eyes and sniffles Current Medications: Current Outpatient Medications Medication Sig Dispense Refill aluminum-magnesium hydroxide-simethicone (MAALOX PLUS) 200-200-20 mg/5 mL Susp Take 30 mL by mouth 4 (four) times a day before meals and nightly . divalproex (DEPAKOTE ER) 500 MG 24 hr tablet Take 1 (one) tablet (500 mg total) by mouth 2 (two) times a day . 60 tablet 0 divalproex (DEPAKOTE) 250 MG delayed release (DR) tablet Take 1 (one) tablet (250 mg total) by mouth nightly . 30 tablet 0 ergocalciferol (ERGOCALCIFEROL) 1,250 mcg (50,000 unit) capsule Vitamin D (Ergocalciferol) 1.25 MG(32192 UT), 1 (one) Capsule once a week # 4, 03/23/2020, Ref. x11. Active Oral once a week; Duration: 0 hydroCHLOROthiazide (HYDRODIURIL) 25 MG tablet Take 1 (one) tablet (25 mg total) by mouth daily . hydrOXYzine (ATARAX) 50 MG tablet Take 1 (one) tablet (50 mg total) by mouth every 6 (six) hours . ibuprofen (ADVIL,MOTRIN) 600 MG tablet Ibuprofen 600MG, 1 (one) Tablet two times daily, as needed # 60, 08/20/2020, Ref. x1. Active Oral two times daily, as needed; Duration: 0 lisinopriL (PRINIVIL,ZESTRIL) 10 MG tablet Take by mouth daily . LORazepam (ATIVAN) 1 MG tablet Take 1 (one) tablet (1 mg total) by mouth every 6 (six) hours as needed for anxiety . magnesium hydroxide 400 mg/5 mL Susp Take 30 mL (2,400 mg total) by mouth daily . methIMAzole (TAPAZOLE) 10 MG tablet Take 0.5 (one-half) tablet (5 mg total) by mouth daily . 15 tablet 11 metoprolol tartrate (LOPRESSOR) 25 MG tablet Metoprolol Tartrate 25MG, Tablet two times daily # 60, 10/28/2020, No Refill. Active Oral two times daily; Duration: 0 OLANZapine (ZYPREXA) 10 MG tablet Take 1 (one) tablet (10 mg total) by mouth 2 (two) times a day . 60 tablet 0 paliperidone (INVEGA) 6 MG 24 hr tablet Paliperidone ER( 6MG Oral 1 bedtime ) Active -Hx Entry Oral bedtime; Duration: 0 propranoloL (INDERAL) 40 MG tablet Take 1 (one) tablet (40 mg total) by mouth every 8 (eight) hours as needed if HR is >90 and hold if BP < 100/60 . 60 tablet 11 traZODone (DESYREL) 50 MG tablet Take 1 (one) tablet (50 mg total) by mouth nightly as needed for sleep . 30 tablet 0 tuberculin (Tubersol) 5 tub. unit /0.1 mL injection Inject 0.1 mL (5 Units total) into the skin once Sign this order in conjunction with the immunization order to satisfy [place] Board [employer] Pharmacy Positive ID requirements for immunization orders. . No current facility-administered medications for this visit. Physical Exam: Vitals: BP 104/73 Pulse 81 Wt 89.8 kg (198 lb) SpO2 94% BMI 31.96 kg/m , Body mass index is 31.96 kg/m ., Wt Readings from Last 10 Encounters: 12/25/24 89.8 kg (198 lb) 09/10/24 89.3 kg (196 lb 14.4 oz) 05/15/24 89.2 kg (196 lb 9.6 oz) 04/01/24 84.9 kg (187 lb 1.6 oz) 01/30/24 84.6 kg (186 lb 8 oz) 12/12/23 81.9 kg (180 lb 9.6 oz) 10/31/23 80.3 kg (177 lb 1.6 oz) 09/19/23 77.9 kg (171 lb 12.8 oz) 08/21/23 54.4 kg (120 lb) 08/18/23 54.4 kg (120 lb) General/Constitutional: , well-developed Eyes: no lid retraction (stare), no remarkable proptosis, non-icteric, no congestion Neck: possible prominent thyroid Cardiovascular: regular rhythm Pulmonary/Chest: effort normal Neurological: alert and oriented, DTRs normal upper extremities, no remarkable tremors Skin: warm Psychiatric: mildly flat affect, sitting in chair during visit and answers questions appropriately Lab/Imaging Data: Lab Results Component Value Date WBC 7.33 06/20/2024 HGB 13.2 (L) 06/20/2024 HCT 39.9 (L) 06/20/2024 MCV 89.0 12/12/2023 PLT 232 06/20/2024 Lab Results Component Value Date GLUCOSE 91 08/24/2023 NA 141 08/24/2023 K 4.1 08/24/2023 CL 108 08/24/2023 BUN 13 08/24/2023 CREATININE 0.33 (L) 08/24/2023 Lab Results Component Value Date ALT 31 12/12/2023 AST 21 12/12/2023 ALKPHOS 234 (H) 12/12/2023 BILITOT 0.3 12/12/2023 Lab Results Component Value Date TSH 0.25 (L) 11/10/2024 F2WSPDA 190 (H) 12/12/2023 THYROIDAB 278.1 (H) 10/19/2019 Lab Results Component Value Date CALCIUM 8.7 08/24/2023 PHOS 5.2 (H) 08/24/2023 Lab Results Component Value Date LDLCALC 39 08/18/2023 CHOL 94 (L) 08/18/2023 HDL 44 08/18/2023 TRIG 56 08/18/2023 CHOLHDL 2.1 08/18/2023 Thyroid US 08/27/2023: COMPARISON: None. TECHNIQUE: Thyroid ultrasound utilizing can-scale and color Doppler analysis. FINDINGS: Enlarged, heterogeneous thyroid gland with diffuse increased vascularity. No suspicious thyroid nodules. Right thyroid lobe measures 8.2 x 2.9 x 3.5 cm (43.5 mL). Isthmus measures 0.9 cm in AP dimension. Left thyroid lobe measures 6.7 x 2.8 x 3.2 cm (31.7 mL). IMPRESSION: Enlarged, heterogeneous thyroid gland with diffuse increased vascularity. No suspicious thyroid nodules identified. 05/14/18: TSI 137% (<=122%) 10/19/19: TSI 5 08/18/23 TSH 0.05, FT4 <7.7, T4 19.8. Alkaline phosphatase 126, AST 25, ALT 47, total bilirubin 0.3. 08/20/23 TSI 2.9, T3 >651 08/23/23 TRAB 29 09/24/2023: AST 21, ALT 28, alkaline phosphatase 215, total bilirubin less than 0.2, TSH 0.03, free T4 1.4, T3 183 09/25/2023: White blood cell count 7.90, hemoglobin 13.3, hematocrit 40.4, neutrophils 41.9, absolute neutrophils 3.32. 10/11/2023: Free T4 1.54 (0.93-1.7), no T3 available. White blood cell count 7.26, neutrophils 2.55 and percentage 35.1- Albumin 4.3, alkaline phosphatase 254 (40-129) albumin 4 ALT 27, AST cannot be analyzed due to hemolysis, total and direct bilirubin within normal limits. 10/01/2023: TSH 0.03 (0.27-4.2), free T4 1.70 (0.93-1.7), white blood cell count 7.22, alkaline phosphatase 213 (40-129), T3 uptake 34 (22-35). 10/11/2023: Free T4 1.54 (0.93-1.7), no T3 available. White blood cell count /neutrophils WNL, Albumin 4.3, alkaline phosphatase 254 (40-129) albumin 4, ALT 27, AST cannot be analyzed due to hemolysis, total and direct bilirubin within normal limits. 10/31/2023:TSH 0.04, free T4 0.3 (0.7-1.7), T3 73 (72-170), alkaline phosphatase 250 (40-140), other LFTs within normal limits, CBC and differential unremarkable. (Methimazole 20 mg 3 times daily, propranolol 80 mg every 8 hours) 11/19/2023: TSH 0.41 (0.27-4.2), free T4 less than 0.11 (0.93-1.7). No T3 done as ordered. Alkaline phosphatase 270 (40-129), other LFTs unremarkable. [T3 uptake was drawn instead of the ordered T3.] (Methimazole 10 mg TID and propanolol 60 mg TID). 11/27/2023: T3 109 (97-169) 12/05/23 labs: TSH 0.4 (0.27-4.2), free T4 1.40 (0.93-1.7), total T3 328.2 (80-200), alkaline phosphatase 283 (40-129), ALT 39 (0-41), AST 75 (0-40), other LFTs unremarkable. (methimazole: 10 mg daily, propanolol: 60 mg TID) 12/12/2023: TSH 0.06, free T4 2.2, T3 190 (72-170), white blood cell count 8.56, monocytes mildly elevated other differential within normal limits, alkaline phosphatase 234 (40-140), AST 21, ALT 31. (Had only anticipated LFT being done but lab ran TFTs as well). 01/07/24: TSH 0.16 (0.27-4.2), FT4 0.37 (0.93-1.7), T3 86.4 (80-200), FT3 2.47 (2-4.4), ALP 185 (40-129), other LFTs WNL. 01/30/2024: TSH 5.94, FT4 0.5, T3 87 02/13/2024: TSH 6.69 (high), FT4 0.45 (low, range 0.93-1.7), FT3 2.74 (range 2-4.4), T3 104 (normal, range 80-200), WBC 7.23, ANC 1.79, immature granulocytes 0.09, Hb 13.4, PLT 217, LFTs normal except for ALP 166 (improving, range 40-129), Ca 8.7, alb 4.3, cr 0.96, eGFR >60 03/17/2024: TSH 0.04, FT4 1.85 (high, range <1.7), FT3 4.51 (high, range <4.4), T3 151 (normal) 04/01/2024: TSH 0.01, FT4 1.4, T3 110, FT3 4.3 (high, range <4.2), LFTs normal, CBC normal but mild inc in abs lymphocytes 4.5 and mono 988 04/11/2024: LFTs normal, CBC with no remarkable penia, mild lymphocytosis, TSH 0.04, FT4 1.56, FT3 4 (normal), T3 134.8 05/15/2024: TSH 0.12, FT4 1.1, T3 100, CBC with mildlymphocytosis and monocytosis as before 06/20/2024: TSH 0.12, FT4 1.22, FT3 3.21 07/21/2024: TSH 1.63, FT4 0.67 (low, range 0.93-1.7), T3 90 (range 80-200), FT3 2.31 (range 2-4.4), T4 4.41 (low, range 4.5-11.7), WBC 8.34, N 3.21, PLT 257, Hb 14.4 immature granulocytes <0.03 (high), LFTs normal, K 4.5, cr 0.74, eGFR >60 08/13/2024: TSH 0.32 (range 0.27-4.2), FT4 1.26 (range 0.93-1.7), T3 98.3 (range 80-200), FT3 3.03 (range 2-4.4) 09/10/2024: TSH 0.01, FT4 2.7, T3 201, FT3 6.7, TSI 169 (high), TRAb 7.53 (high) 10/01/2024: TSH 0.04, FT4 2.17 (high, range <1.7), FT3 4.67 (high, range 4.4), T3 146 (normal) 10/23/24: TSH 0.01, FT4 1.4, T3 87, FT3 3.8 11/10/2024: TSH 0.25, FT4 1.23, T3 85.9, FT3 2.76 (all normal except TSH) 12/22/2024: TSH 1.209, FT4 index 5.36 (normal), total T4 6.33 (normal), FT3 2.5 (range 2.5-3.9) Assessment and plan: Mr. Carlton is a 24 y.o. male with a history of schizoaffective disorder/severe bipolar mood extremes (mostly flor but also some past episodes of depression with suicidality), paranoid psychosis, hyperthyroidism, and history of illicit substance use. He is here for a follow-up visit of Graves' disease/hyperthyroidism. Graves' disease was diagnosed in October 2019 and he was started on methimazole. The patient was lost to follow-up soon after treatment was started. He was not seen again until he was recently admitted to the hospital 08/18/23-09/25/23 for schizoaffective disorder and thyroid storm. During the hospitalization he was treated with methimazole, Propranolol, IV hydrocortisone and SSKI drops. 10/31/2023: He was discharged from the hospital on methimazole 20 mg 3 times daily and propranolol 80 mg 3 times daily. He continues on the same regimen. He is living in a healthcare facility and thus has been getting his medications regularly. He reports he has no symptoms of hyperthyroidism, he denies any complaints. He has a minimal tremor of outstretched hands, he has overall gained a good bit of weight since prior to initiation of methimazole during the hospital stay and he has gained approximately 6 pounds since discharged from the hospital. His vital signs have been relatively stable with heart rate recently most often in the 80s and blood pressure readings more often controlled and sometimes mildly elevated. His most recent TFTs on October 11, 2023 have shown improvement with his free T4 into the upper normal range. His last TSH on October 01, 2023 remained suppressed. Patient's liver function tests have been mildly elevated, specifically the alkaline phosphatase. This may be related to hyperthyroidism itself with increased bone turnover. Plan: -Repeat TSH, free T4, T3, hepatic function panel, CBC today. -At present continue methimazole 20 mg 3 times daily. Anticipate will reduce methimazole after labs reviewed. -Continue propranolol 80 mg 3 times daily. Will continue to monitor vital signs closely, twice daily, as would expect we will need may need to reduce the propranolol soon. -Will continue to monitor liver function tests and can tolerate levels that are less than 3 times the upper limit of normal with close monitoring. Will send orders to the facility once we have lab results back. Facility: [facility], ph [phone] Patient notes he will likely be there a while longer. 12/12/2023: Labs have been done between visits with medication adjustments. 11/19/23 labs showed FT4 less than 0.11 with TSH in the low normal range (no T3 was done as ordered at that time)--methimazole was reduced from 10 mg tid to 10 mg daily. T3 was done 11/27/23--low normal range. Most recent labs: 12/05/23 : TSH 0.4 (0.27-4.2), free T4 1.40 (0.93-1.7), total T3 328.2 (80-200), alkaline phosphatase 283 (40-129), ALT 39 (0-41), AST 75 (0-40), other LFTs unremarkable. (While taking methimazole: 10 mg, propanolol: 60 mg TID). Improvement noted in labs with normalization of FT4 and TSH and T3 elevated; methimazole was increased to 10 mg BID on 12/11/23. He is currently taking Methimazole 10 mg BID since 12/11/23 and propanolol 60 mg tid since 11/02/23. The methimazole was increased just yesterday. He denies symptoms of hyperthyroidism/hypothyroidism; denies adverse medication side effects. His LFTs remain mildly elevated with AST elevation on labs last week. Alk phos elevation stable. He continues with heart rate occ elevated and more often in 80s/some 90s and BP more often slightly elevated. Would have expected to need to further decrease propanolol by this point. He denies pre-existing HTN. Plan: Continue plan from 12/11/23 TC with facility, continue methimazole 10 mg BID and current propanolol 60 mg TID. -repeat hepatic function panel today to continue trending. Facility will not need to collect later this week as planned yesterday. -TSH, T3, FT3, FT4 and hepatic function panel to be done in ~4 weeks, facility already has these orders. And to send vitals/current med list with lab results once available. Patient advised of possible adverse medication side effects to report and to notify me if develops such. And will continue to monitor vitals daily. Patient to report dizziness, increased fatigue if occurring as well as change in symptom that may indicate thyroid level abnormality in the meantime. Instructions provided to patient and facility staff accompanying patient today Post visit 12/12/23: Hepatic function received and alkaline phosphatase stable with improved AST noted. Lab rate and TFTs also, had only intended for hepatic function panel today but prior order was evidently in the system. Trend in TFTs since last week supports the need for the increase methimazole dose. 01/30/2024: Labs on 01/07/2024 showed improvement in LFTs with ALT/AST in normal range and decrease in ALP (still above normal though but <1.5 times ULN this time). TFTs showed low FT4. Low normal T3 and mildly low TSH 0.16 this time (compared to lower TSH 0.06 in 11/2023). MMI dose was advised to be decreased from 10 mg bid to 15 mg daily in late 12/2023, and to continue propranolol 60 mg tid. Will repeat labs today since patient is here, but that will be only 2 weeks after the last change, but will give an idea how labs are trending. Counseled him on smoking cessation and effect on eyes in Graves. Counseled on MMI precautions. Printed standing orders for repeat labs as needed down the road. BP and HR seem to be ok on current propranolol, but will consider decreasing the dose if TFTs are stable within normal range. 04/01/2024: MMI dose was decreased from 15 to 10 mg daily around 02/23, then recommended to be increased to 10 mg alternating with 15 mg every other day (average daily dose would be 12.5 mg) in early 03/2024 as TSH was going down with high FT4/FT3. Will get labs repeated today ~10 days after last dose change since he seems to be very sensitive to dose changes. Increased propranolol dose to 60 mg tid; goal resting HR <90 as long as BP is fine; provided them with instructions in that regard. He may need to see cardiology if there is still tachycardia is persistent despite normal TFTs (not yet so far). Will repeat LFTs (had high but improving ALP in last labs in 01/2024) and CBC with labs today (had some immature granulocytes in last CBC and he was recommended to f/u with PCP). Counseled on smoking cessation and to see the eye doctor in case of eye changes. 05/15/2024: Repeat labs in 04/01 showed slighlt high FT3 with TSH 0.01, then 04/11/2024 labs showed normal FT4/T3/FT3 with low TSH 0.04. He was recommended to keep on same MMI dose 10 alternating with 15 mg every other day, average daily dose 12.5 mg. Will repeat labs now to see they are trending (keep on same MMI dose till we get results). LFTs were normal in 03/2024 and CBC with no remarkable penia with mild lymphocytosis. Will repeat CBC with labs. Keep on same propranolol regimen (40 mg q8h PRN fir HR >90 if BP <100/60). Discussed with patient that we may need definitive treatment with SEXTON or surgery if levels continue to fluctuate, but would probably wait till at least the 1 yr lee on MMI hoping he may achieve remission. Counseled on smoking cessation. 09/10/2024: MMI was kept at same dose after 04/2024 labs but then recommended to be decreased to 10 mg daily after labs in 07/2024 showed low FT4 with normal TSH. However, dose was decreased to 5 mg daily, and repeat labs in late July showed normal TFTs but low normal TSH. I expect that we will need to increase dose but will repeat labs now (along with Abs since it has been a year) before adjusting dose. I recommend that tachycardia be evaluated by the facility doctor or primary doctor as it doesn't seem to be necessarily related to the thyroid as heart rate would still be high when thyroid functions are normal or low. 10/23/2024: Labs after visit in 08/2024 showed high TFTs as expected. Dose of MMI was advised to be increased back to 10 mg daily. He had labs after ~3 weeks showing an improvement. TRAb/TSI were still high. We will recheck labs today. Until we get result, will keep on MMI 10 mg daily. I decreased propranolol dose to 20 mg PRN q8h given the low BP sometimes. I counseled patient on MMI precautions, and smoking cessation. When discussed other possible lines of treatment (SEXTON/surgery), he preferred to keep on MMI at this time. 12/25/2024: Labs on 10/23 then 11/10 showed normal FT4 and T3 with improvement of TSH 0.01 --> 0.25. He was kept on same MMI dose 10 mg daily. Labs in 12/2024 show normal TFTs. Will keep on same MMI dose and repeat labs in 1 more month to make sure they will remain stable (specially that FT3 is low normal now). Counseled on MMI precautions. Return in about 1 month (around 01/24/2025) for Graves f/u . Time spent reviewing chart, during the encounter, putting orders and coordinating care on the encounter day is 22 minutes. Charels Sequeira MD Endocrinology documented in this encounter [facility] 12-25-2024 Note Reason for visit/chi ef complaint: Graves' disease Date: 12/25/2024 Referring Provider: No ref. provider found Primary Care Provider: Amadeo Silver MD HPI: Interval hx/subjective: 12/25/2024: Med list includes MMI 10 mg daily (no side effects) and propranolol 40 mg q8h PRN for HR >90 if BP >100/60, no biotin/MVI/B-complex. Per Facility vitals, HR has been 60s-120s. No significant fatigue, palpitations, tremors. Bms are normal. No heat/cold intolerance. Bms are normal. Weight has been stable. No bulging eyes/double vision, red/dry eyes. He smokes. No neck lumps/pain or compressive symptoms. 10/23/2024: Med list includes MMI 10 mg daily and propranolol 40 mg q8h PRN for HR >90 if BP >100/60. No side effects with MMI. No dizziness. No fatigue, denies palpitations, tremors. Bms are normal. Denies heat/cold intolerance. Weight has been stable; he thinks weight fluctuates within the same range. No bulging eyes/double vision, red/dry eyes. He smokes. No neck lumps/pain or compressive symptoms. BP and HR ranged between low, normal and high. 09/10/2024: MMI dose was recommended to be decreased to 10 mg daily (from average 12.5 mg daily) in ~mid July 2024, but current med list shows MMI dose of 5 mg daily since that time (called facility and verified dosage). Also includes propranolol 40 mg q8h PRN for HR >90 and to hold if BP <100/60. HR over the last week has been ranging 60s-130. No side effects with MMI. No fatigue, denies palpitations, tremors. Bms are normal. Denies heat/cold intolerance. Weight has been stable; he thinks weight fluctuates within the same range. No bulging eyes/double vision, red/dry eyes. He smokes. No neck lumps/pain or compressive symptoms. 05/15/2024: Currently on MMI 10 alternating with 15 mg every other day, average daily dose 12.5 mg (well tolerated with no side effects), and propranolol 40 mg q8h PRN fir HR >90 if BP <100/60. No fatigue, palpitations, tremors, heat/cold intolerance. Bms are normal. No hair loss/dry skin. Has been gaining weight as he has been eating more. No bulging eyes/double vision, red/dry eyes. He smokes. No neck lumps/pain or compressive symptoms. No vitals received from facility today. 04/01/2024: MMI dose was decreased from 15 to 10 mg daily around 02/23, then recommended to be increased to 10 mg alternating with 15 mg every other day (average daily dose would be 12.5 mg) in early 03/2024 (03/21-)as TSH was going down with high FT4/FT3. Takes propranolol 40 mg tid. Medication list includes Depakote, olanzapine. No fatigue, palpitations, tremors, heat/cold intolerance. Bms are normal. No hair loss/dry skin, weight has been stable. No abdominal pain, nausea/vomiting. No side effects from MMI. No bulging eyes/double vision, red/dry eyes. He smokes. No neck lumps/pain or compressive symptoms. Only recent vitals were sent; HR 105, BP 120/83 01/30/2024: He has been on MMI; dose was changed to 15 mg daily (starting 01/14), has been taking propranolol 60 mg tid. No side effects from MMI. No dizziness. No fatigue, palpitations, tremors, heat/cold intolerance. Bms are normal. No dry skin/hair loss. Says weight is stable, but per chart he has been gaining some weight. Says mood is more stable. He smokes. No double vision, bulging eyes, red/dry eyes. No neck lumps/pain or compressive symptoms. Medication list includes Depakote, haloperidol PRN, olanzapine. 12/12/23: He is currently residing at [facility] in [facility], ph [phone]--he has been there since discharge from the hospital. Most recent labs: 12/05/23 : TSH 0.4 (0.27-4.2), free T4 1.40 (0.93-1.7), total T3 328.2 (80-200), alkaline phosphatase 283 (40-129), ALT 39 (0-41), AST 75 (0-40), other LFTs unremarkable. (While taking methimazole: 10 mg, propanolol: 60 mg TID). He is currently taking Methimazole 10 mg BID since 12/11/23 and propanolol 60 mg tid since 11/02/23. Mr. Carlton endorses No fatigue, cold intolerance, constipation, dry skin, hair loss, muscle weakness/pain, palpitations, tremors, diarrhea/hyperdefecation, heat intolerance, excessive anxiety/nervousness. He has gained weight--feels appropriate for him. He has No red/dry eyes, bulging eyes, or double vision. He denies dizziness/orthostasis. He denies recent infections/fever/n/v, change in stool color or skin/eye color, no rashed. In regards to mechanical/obstructive symptoms, He endorses No neck lump/swelling, neck pain, dysphagia, choking on food, voice changes, or pressure/choking sensation. VS review from facility records from info faxed yesterday: For the past 7-10days: Blood pressure for the past 7 to 10 days has ranged from 94-153/72-100, more often 120s to 130s/80s Pulse for the past 7 to 10 days-82-119, most often in the 80s. 10/31/23: He is currently residing at [facility] in [facility], ph [phone]--he has been there since discharge from the hospital. Labs have been completed outsi (more content not included)... [facility] 10-23-2024 Instructions Charles Sequeira MD - 10/23/2024 8:24 AM EDT Labs on the way out. Keep on same methimazole dose 10 mg daily until we get test results from today. Decrease propranolol dose to 20 mg every 8 hours as needed if resting heart rate is >90 as long as blood pressure is >100/60 mmHg. Let us know if heart rate is persistently above 90-100 mmHg. No other medication changes were done today. Methimazole: -This medicine is usually well tolerated, but you need to be aware of possible side effects including decrease in blood cell counts, liver dysfunction, joint/muscle aches, rash, nausea, altered taste sensation. -Let me know if you develop sore throat, fever, any infection, abdominal pain/bloating, loss of appetite, nausea, vomiting, change in urine/stool color, yellowish eye discoloration (if, so you will also need to hold methimazole transiently till we make sure your labs are good). Let me know if you develop any concerning side effects otherwise. I highly encourage you to stop smoking as discussed today. documented in this encounter [facility] 10-23-2024 Note Reason for visit/chi ef complaint: Graves' disease Date: 10/23/2024 Referring Provider: No ref. provider found Primary Care Provider: Amadeo Silver MD HPI: Interval hx/subjective: 10/23/2024: Med list includes MMI 10 mg daily and propranolol 40 mg q8h PRN for HR >90 if BP >100/60. No side effects with MMI. No dizziness. No fatigue, denies palpitations, tremors. Bms are normal. Denies heat/cold intolerance. Weight has been stable; he thinks weight fluctuates within the same range. No bulging eyes/double vision, red/dry eyes. He smokes. No neck lumps/pain or compressive symptoms. BP and HR ranged between low, normal and high. 09/10/2024: MMI dose was recommended to be decreased to 10 mg daily (from average 12.5 mg daily) in ~mid July 2024, but current med list shows MMI dose of 5 mg daily since that time (called facility and verified dosage). Also includes propranolol 40 mg q8h PRN for HR >90 and to hold if BP <100/60. HR over the last week has been ranging 60s-130. No side effects with MMI. No fatigue, denies palpitations, tremors. Bms are normal. Denies heat/cold intolerance. Weight has been stable; he thinks weight fluctuates within the same range. No bulging eyes/double vision, red/dry eyes. He smokes. No neck lumps/pain or compressive symptoms. 05/15/2024: Currently on MMI 10 alternating with 15 mg every other day, average daily dose 12.5 mg (well tolerated with no side effects), and propranolol 40 mg q8h PRN fir HR >90 if BP <100/60. No fatigue, palpitations, tremors, heat/cold intolerance. Bms are normal. No hair loss/dry skin. Has been gaining weight as he has been eating more. No bulging eyes/double vision, red/dry eyes. He smokes. No neck lumps/pain or compressive symptoms. No vitals received from facility today. 04/01/2024: MMI dose was decreased from 15 to 10 mg daily around 02/23, then recommended to be increased to 10 mg alternating with 15 mg every other day (average daily dose would be 12.5 mg) in early 03/2024 (6-7)as TSH was going down with high FT4/FT3. Takes propranolol 40 mg tid. Medication list includes Depakote, olanzapine. No fatigue, palpitations, tremors, heat/cold intolerance. Bms are normal. No hair loss/dry skin, weight has been stable. No abdominal pain, nausea/vomiting. No side effects from MMI. No bulging eyes/double vision, red/dry eyes. He smokes. No neck lumps/pain or compressive symptoms. Only recent vitals were sent; HR 105, BP 120/83 01/30/2024: He has been on MMI; dose was changed to 15 mg daily (starting 01/14), has been taking propranolol 60 mg tid. No side effects from MMI. No dizziness. No fatigue, palpitations, tremors, heat/cold intolerance. Bms are normal. No dry skin/hair loss. Says weight is stable, but per chart he has been gaining some weight. Says mood is more stable. He smokes. No double vision, bulging eyes, red/dry eyes. No neck lumps/pain or compressive symptoms. Medication list includes Depakote, haloperidol PRN, olanzapine. 12/12/23: He is currently residing at [facility] in [facility], --he has been there since discharge from the hospital. Most recent labs: 12/05/23 : TSH 0.4 (0.27-4.2), free T4 1.40 (0.93-1.7), total T3 328.2 (80-200), alkaline phosphatase 283 (40-129), ALT 39 (0-41), AST 75 (0-40), other LFTs unremarkable. (While taking methimazole: 10 mg, propanolol: 60 mg TID). He is currently taking Methimazole 10 mg BID since 12/11/23 and propanolol 60 mg tid since 11/02/23. Mr. Carlton endorses No fatigue, cold intolerance, constipation, dry skin, hair loss, muscle weakness/pain, palpitations, tremors, diarrhea/hyperdefecation, heat intolerance, excessive anxiety/nervousness. He has gained weight--feels appropriate for him. He has No red/dry eyes, bulging eyes, or double vision. He denies dizziness/orthostasis. He denies recent infections/fever/n/v, change in stool color or skin/eye color, no rashed. In regards to mechanical/obstructive symptoms, He endorses No neck lump/swelling, neck pain, dysphagia, choking on food, voice changes, or pressure/choking sensation. VS review from facility records from info faxed yesterday: For the past 7-10days: Blood pressure for the past 7 to 10 days has ranged from 94-153/72-100, more often 120s to 130s/80s Pulse for the past 7 to 10 days-82-119, most often in the 80s. 10/31/23: He is currently residing at [facility] in [facility], ph [phone]--he has been there since discharge from the hospital. Labs have been completed outside after hospitalization. 10/01/23 labs TSH remained suppressed with FT4 top of normal, no T3 available. Patient's free T4 on the most recent labs on 10/11/23 was in the upper normal range; no TSH or T3 level available. His vital signs have been relatively stable with HR and BP intermittently elevated but not consistently. He is presently taking methimazole 20 mg 3 times daily and propranolol 80 mg every 8 hours. H (more content not included)... [facility] 10-23-2024 History of Present illness Narrative Images from the original note were not included. Reason for visit/chief complaint: Graves' disease Date: 10/23/2024 Referring Provider: No ref. provider found Primary Care Provider: Amadeo Silver MD HPI: Interval hx/subjective: 10/23/2024: Med list includes MMI 10 mg daily and propranolol 40 mg q8h PRN for HR >90 if BP >100/60. No side effects with MMI. No dizziness. No fatigue, denies palpitations, tremors. Bms are normal. Denies heat/cold intolerance. Weight has been stable; he thinks weight fluctuates within the same range. No bulging eyes/double vision, red/dry eyes. He smokes. No neck lumps/pain or compressive symptoms. BP and HR ranged between low, normal and high. 09/10/2024: MMI dose was recommended to be decreased to 10 mg daily (from average 12.5 mg daily) in ~mid July 2024, but current med list shows MMI dose of 5 mg daily since that time (called facility and verified dosage). Also includes propranolol 40 mg q8h PRN for HR >90 and to hold if BP <100/60. HR over the last week has been ranging 60s-130. No side effects with MMI. No fatigue, denies palpitations, tremors. Bms are normal. Denies heat/cold intolerance. Weight has been stable; he thinks weight fluctuates within the same range. No bulging eyes/double vision, red/dry eyes. He smokes. No neck lumps/pain or compressive symptoms. 05/15/2024: Currently on MMI 10 alternating with 15 mg every other day, average daily dose 12.5 mg (well tolerated with no side effects), and propranolol 40 mg q8h PRN fir HR >90 if BP <100/60. No fatigue, palpitations, tremors, heat/cold intolerance. Bms are normal. No hair loss/dry skin. Has been gaining weight as he has been eating more. No bulging eyes/double vision, red/dry eyes. He smokes. No neck lumps/pain or compressive symptoms. No vitals received from facility today. 04/01/2024: MMI dose was decreased from 15 to 10 mg daily around 02/23, then recommended to be increased to 10 mg alternating with 15 mg every other day (average daily dose would be 12.5 mg) in early 03/2024 (03/21-)as TSH was going down with high FT4/FT3. Takes propranolol 40 mg tid. Medication list includes Depakote, olanzapine. No fatigue, palpitations, tremors, heat/cold intolerance. Bms are normal. No hair loss/dry skin, weight has been stable. No abdominal pain, nausea/vomiting. No side effects from MMI. No bulging eyes/double vision, red/dry eyes. He smokes. No neck lumps/pain or compressive symptoms. Only recent vitals were sent; HR 105, BP 120/83 01/30/2024: He has been on MMI; dose was changed to 15 mg daily (starting 01/14), has been taking propranolol 60 mg tid. No side effects from MMI. No dizziness. No fatigue, palpitations, tremors, heat/cold intolerance. Bms are normal. No dry skin/hair loss. Says weight is stable, but per chart he has been gaining some weight. Says mood is more stable. He smokes. No double vision, bulging eyes, red/dry eyes. No neck lumps/pain or compressive symptoms. Medication list includes Depakote, haloperidol PRN, olanzapine. 8/28/24: He is currently residing at [facility] in [facility], ph [phone]--he has been there since discharge from the hospital. Most recent labs: 12/05/23 : TSH 0.4 (0.27-4.2), free T4 1.40 (0.93-1.7), total T3 328.2 (80-200), alkaline phosphatase 283 (40-129), ALT 39 (0-41), AST 75 (0-40), other LFTs unremarkable. (While taking methimazole: 10 mg, propanolol: 60 mg TID). He is currently taking Methimazole 10 mg BID since 12/11/23 and propanolol 60 mg tid since 11/02/23. Mr. Carlton endorses No fatigue, cold intolerance, constipation, dry skin, hair loss, muscle weakness/pain, palpitations, tremors, diarrhea/hyperdefecation, heat intolerance, excessive anxiety/nervousness. He has gained weight--feels appropriate for him. He has No red/dry eyes, bulging eyes, or double vision. He denies dizziness/orthostasis. He denies recent infections/fever/n/v, change in stool color or skin/eye color, no rashed. In regards to mechanical/obstructive symptoms, He endorses No neck lump/swelling, neck pain, dysphagia, choking on food, voice changes, or pressure/choking sensation. VS review from facility records from info faxed yesterday: For the past 7-10days: Blood pressure for the past 7 to 10 days has ranged from 94-153/72-100, more often 120s to 130s/80s Pulse for the past 7 to 10 days-82-119, most often in the 80s. 10/31/23: He is currently residing at [facility] in [facility], ph [phone]--he has been there since discharge from the hospital. Labs have been completed outside after hospitalization. 10/01/23 labs TSH remained suppressed with FT4 top of normal, no T3 available. Patient's free T4 on the most recent labs on 10/11/23 was in the upper normal range; no TSH or T3 level available. His vital signs have been relatively stable with HR and BP intermittently elevated but not consistently. He is presently taking methimazole 20 mg 3 times daily and propranolol 80 mg every 8 hours. He denies nausea, vomiting, abdominal pain, change in skin color, rashes, recent fevers or infections. Denies dizziness or shortness of breath or chest pain. Mr. Carlton endorses No fatigue, cold intolerance, constipation, dry skin, hair loss, muscle weakness/pain, palpitations, tremors, diarrhea/hyperdefecation, heat intolerance, excessive anxiety/nervousness. He has gained weight. He has No red/dry eyes, bulging eyes, or double vision. In regards to mechanical/obstructive symptoms, He endorses No neck lump/swelling, neck pain, dysphagia, choking on food, voice changes, or pressure/choking sensation. VS review from facility records: For the past 7 days: blood pressure range: 103-176/56-122, most readings are in the 120s and 130s/78-90s Heart rate range: 75 -110, mostly in the 80s for the past week. No biotin supplements. Risk factors: -Hx of autoimmune diseases: none other than thyroid known -Family hx of thyroid disease/cancer: unknown -Hx of thyroid surgery: no -Hx of high risk/interfering medications: no -Recent URI/: no:/na -Hx of head/neck irradiation: no -Smoking: yes Background: Mr. Carlton is a 23 y.o. male with a history of schizoaffective disorder/severe bipolar mood extremes (mostly flor but also some past episodes of depression with suicidality), paranoid psychosis, hyperthyroidism, and history of illicit substance use who is here for a follow-up visit of Graves' disease. He was initially seen by [facility] endocrinology in October of 2019 during a hospitalization for psychiatric care and was diagnosed with Graves disease at that time. He was started on methimazole in October of 2019. He did show improvement in status taking methimazole but he was lost to follow up after 02/2020 outpatient endocrinology visit. We did not see him again until the recent hospitalization, admitted 08/18/23-09/25/23, for schizoaffective disorder and hyperthyroidism/thyroid storm. He has a history of refusing treatment/medications for psychiatric and thyroid conditions. Labs upon presentation to the hospital on 08/18/23 TSH 0.05, FT4 >7.7, T4 19.8. Patient was treated with methimazole 20 mg 3 times daily, propranolol 80 mg every 6- 8 hours, IV hydrocortisone, SSKI drops during the hospital stay. His labs did gradually improve during the hospitalization but remained hyperthyroid. He did have mild increase in LFTs during the hospital stay. Labs at discharge from hospital: 09/24/2023: AST 21, ALT 28, alkaline phosphatase 215, total bilirubin less than 0.2, TSH 0.03, free T4 1.4, T3 183. He was discharged to a care facility from the hospital on methimazole 20 mg 3 times daily and propranolol 80 mg every 8 hours. Review of Systems: as per HPI Medical History: Past Medical History: Diagnosis Date ADHD Graves disease Danilo's thyroiditis Hypertension Hyperthyroidism 10/20/2019 Hyperthyroidism Hyperthyroidism Schizo affective schizophrenia (HCC) Schizoaffective disorder (HCC) 10/20/2019 Surgical History: No past surgical history on file. Family History: Family History Family history unknown: Yes Social History: Social History Socioeconomic History Marital status: Single Tobacco Use Smoking status: Every Day Current packs/day: 1.50 Average packs/day: 1.5 packs/day for 5.0 years (7.5 ttl pk-yrs) Types: Cigarettes Smokeless tobacco: Never Vaping Use Vaping status: Never Used Substance and Sexual Activity Alcohol use: Not Currently Comment: anually Drug use: Yes Types: Marijuana Comment: I don't even smoke pot monthly Sexual activity: Not Currently Social Drivers of Health Food Insecurity: No Food Insecurity (08/21/2023) Hunger Vital Sign Worried About Running Out of Food in the Last Year: Never true Ran Out of Food in the Last Year: Never true Transportation Needs: No Transportation Needs (08/21/2023) PRAPARE - Transportation Lack of Transportation (Medical): No Lack of Transportation (Non-Medical): No Housing Stability: Low Risk (08/21/2023) Housing Stability Vital Sign Unable to Pay for Housing in the Last Year: No Number of Places Lived in the Last Year: 0 Unstable Housing in the Last Year: No Allergies: Allergies Allergen Reactions Grass Pollen-Red Top, Standard Other (See Comments) Watery eyes and sniffles Mite Extract Other (See Comments) Watery eyes and sniffles Current Medications: Current Outpatient Medications Medication Sig Dispense Refill aluminum-magnesium hydroxide-simethicone (MAALOX PLUS) 200-200-20 mg/5 mL Susp Take 30 mL by mouth 4 (four) times a day before meals and nightly . divalproex (DEPAKOTE ER) 500 MG 24 hr tablet Take 1 (one) tablet (500 mg total) by mouth 2 (two) times a day . 60 tablet 0 divalproex (DEPAKOTE) 250 MG delayed release (DR) tablet Take 1 (one) tablet (250 mg total) by mouth nightly . 30 tablet 0 hydroCHLOROthiazide (HYDRODIURIL) 25 MG tablet Take 1 (one) tablet (25 mg total) by mouth daily . hydrOXYzine (ATARAX) 50 MG tablet Take 1 (one) tablet (50 mg total) by mouth every 6 (six) hours . lisinopriL (PRINIVIL,ZESTRIL) 10 MG tablet Take by mouth daily . LORazepam (ATIVAN) 1 MG tablet Take 1 (one) tablet (1 mg total) by mouth every 6 (six) hours as needed for anxiety . magnesium hydroxide 400 mg/5 mL Susp Take 30 mL (2,400 mg total) by mouth daily . methIMAzole (TAPAZOLE) 10 MG tablet Take 0.5 (one-half) tablet (5 mg total) by mouth daily . 15 tablet 11 OLANZapine (ZYPREXA) 10 MG tablet Take 1 (one) tablet (10 mg total) by mouth 2 (two) times a day . 60 tablet 0 propranoloL (INDERAL) 40 MG tablet Take 1 (one) tablet (40 mg total) by mouth every 8 (eight) hours as needed if HR is >90 and hold if BP < 100/60 . 60 tablet 11 traZODone (DESYREL) 50 MG tablet Take 1 (one) tablet (50 mg total) by mouth nightly as needed for sleep . 30 tablet 0 tuberculin (Tubersol) 5 tub. unit /0.1 mL injection Inject 0.1 mL (5 Units total) into the skin once Sign this order in conjunction with the immunization order to satisfy [place] Board [employer] Pharmacy Positive ID requirements for immunization orders. . No current facility-administered medications for this visit. Physical Exam: Vitals: BP 111/77 (BP Location: Left arm, Patient Position: Sitting) Pulse 80 , There is no height or weight on file to calculate BMI., Wt Readings from Last 10 Encounters: 09/10/24 89.3 kg (196 lb 14.4 oz) 05/15/24 89.2 kg (196 lb 9.6 oz) 04/01/24 84.9 kg (187 lb 1.6 oz) 01/30/24 84.6 kg (186 lb 8 oz) 12/12/23 81.9 kg (180 lb 9.6 oz) 10/31/23 80.3 kg (177 lb 1.6 oz) 09/19/23 77.9 kg (171 lb 12.8 oz) 08/21/23 54.4 kg (120 lb) 08/18/23 54.4 kg (120 lb) 02/26/20 75.3 kg (166 lb) General/Constitutional: , well-developed Eyes: no lid retraction (stare), no remarkable proptosis, non-icteric Cardiovascular: regular rhythm Pulmonary/Chest: effort normal Neurological: alert and oriented, DTRs normal upper extremities, no remarkable tremors Skin: warm Psychiatric: mildly flat affect, sitting in chair during visit and answers questions appropriately Lab/Imaging Data: Lab Results Component Value Date WBC 7.33 06/20/2024 HGB 13.2 (L) 06/20/2024 HCT 39.9 (L) 06/20/2024 MCV 89.0 12/12/2023 PLT 232 06/20/2024 Lab Results Component Value Date GLUCOSE 91 08/24/2023 NA 141 08/24/2023 K 4.1 08/24/2023 CL 108 08/24/2023 BUN 13 08/24/2023 CREATININE 0.33 (L) 08/24/2023 Lab Results Component Value Date ALT 31 12/12/2023 AST 21 12/12/2023 ALKPHOS 234 (H) 12/12/2023 BILITOT 0.3 12/12/2023 Lab Results Component Value Date TSH 0.04 (L) 08/13/2024 S6YSWCT 190 (H) 12/12/2023 THYROIDAB 278.1 (H) 10/19/2019 Lab Results Component Value Date CALCIUM 8.7 08/24/2023 PHOS 5.2 (H) 08/24/2023 Lab Results Component Value Date LDLCALC 39 08/18/2023 CHOL 94 (L) 08/18/2023 HDL 44 08/18/2023 TRIG 56 08/18/2023 CHOLHDL 2.1 08/18/2023 Thyroid US 08/27/2023: COMPARISON: None. TECHNIQUE: Thyroid ultrasound utilizing can-scale and color Doppler analysis. FINDINGS: Enlarged, heterogeneous thyroid gland with diffuse increased vascularity. No suspicious thyroid nodules. Right thyroid lobe measures 8.2 x 2.9 x 3.5 cm (43.5 mL). Isthmus measures 0.9 cm in AP dimension. Left thyroid lobe measures 6.7 x 2.8 x 3.2 cm (31.7 mL). IMPRESSION: Enlarged, heterogeneous thyroid gland with diffuse increased vascularity. No suspicious thyroid nodules identified. 05/14/18: TSI 137% (<=122%) 10/19/19: TSI 5 08/18/23 TSH 0.05, FT4 <7.7, T4 19.8. Alkaline phosphatase 126, AST 25, ALT 47, total bilirubin 0.3. 08/20/23 TSI 2.9, T3 >651 08/23/23 TRAB 29 09/24/2023: AST 21, ALT 28, alkaline phosphatase 215, total bilirubin less than 0.2, TSH 0.03, free T4 1.4, T3 183 09/25/2023: White blood cell count 7.90, hemoglobin 13.3, hematocrit 40.4, neutrophils 41.9, absolute neutrophils 3.32. 10/11/2023: Free T4 1.54 (0.93-1.7), no T3 available. White blood cell count 7.26, neutrophils 2.55 and percentage 35.1- Albumin 4.3, alkaline phosphatase 254 (40-129) albumin 4 ALT 27, AST cannot be analyzed due to hemolysis, total and direct bilirubin within normal limits. 10/01/2023: TSH 0.03 (0.27-4.2), free T4 1.70 (0.93-1.7), white blood cell count 7.22, alkaline phosphatase 213 (40-129), T3 uptake 34 (22-35). 10/11/2023: Free T4 1.54 (0.93-1.7), no T3 available. White blood cell count /neutrophils WNL, Albumin 4.3, alkaline phosphatase 254 (40-129) albumin 4, ALT 27, AST cannot be analyzed due to hemolysis, total and direct bilirubin within normal limits. 10/31/2023:TSH 0.04, free T4 0.3 (0.7-1.7), T3 73 (72-170), alkaline phosphatase 250 (40-140), other LFTs within normal limits, CBC and differential unremarkable. (Methimazole 20 mg 3 times daily, propranolol 80 mg every 8 hours) 11/19/2023: TSH 0.41 (0.27-4.2), free T4 less than 0.11 (0.93-1.7). No T3 done as ordered. Alkaline phosphatase 270 (40-129), other LFTs unremarkable. [T3 uptake was drawn instead of the ordered T3.] (Methimazole 10 mg TID and propanolol 60 mg TID). 11/27/2023: T3 109 (97-169) 12/05/23 labs: TSH 0.4 (0.27-4.2), free T4 1.40 (0.93-1.7), total T3 328.2 (80-200), alkaline phosphatase 283 (40-129), ALT 39 (0-41), AST 75 (0-40), other LFTs unremarkable. (methimazole: 10 mg daily, propanolol: 60 mg TID) 12/12/2023: TSH 0.06, free T4 2.2, T3 190 (72-170), white blood cell count 8.56, monocytes mildly elevated other differential within normal limits, alkaline phosphatase 234 (40-140), AST 21, ALT 31. (Had only anticipated LFT being done but lab ran TFTs as well). 01/07/24: TSH 0.16 (0.27-4.2), FT4 0.37 (0.93-1.7), T3 86.4 (80-200), FT3 2.47 (2-4.4), ALP 185 (40-129), other LFTs WNL. 01/30/2024: TSH 5.94, FT4 0.5, T3 87 02/13/2024: TSH 6.69 (high), FT4 0.45 (low, range 0.93-1.7), FT3 2.74 (range 2-4.4), T3 104 (normal, range 80-200), WBC 7.23, ANC 1.79, immature granulocytes 0.09, Hb 13.4, PLT 217, LFTs normal except for ALP 166 (improving, range 40-129), Ca 8.7, alb 4.3, cr 0.96, eGFR >60 03/17/2024: TSH 0.04, FT4 1.85 (high, range <1.7), FT3 4.51 (high, range <4.4), T3 151 (normal) 04/01/2024: TSH 0.01, FT4 1.4, T3 110, FT3 4.3 (high, range <4.2), LFTs normal, CBC normal but mild inc in abs lymphocytes 4.5 and mono 988 04/11/2024: LFTs normal, CBC with no remarkable penia, mild lymphocytosis, TSH 0.04, FT4 1.56, FT3 4 (normal), T3 134.8 05/15/2024: TSH 0.12, FT4 1.1, T3 100, CBC with mildlymphocytosis and monocytosis as before 06/20/2024: TSH 0.12, FT4 1.22, FT3 3.21 07/21/2024: TSH 1.63, FT4 0.67 (low, range 0.93-1.7), T3 90 (range 80-200), FT3 2.31 (range 2-4.4), T4 4.41 (low, range 4.5-11.7), WBC 8.34, N 3.21, PLT 257, Hb 14.4 immature granulocytes <0.03 (high), LFTs normal, K 4.5, cr 0.74, eGFR >60 08/13/2024: TSH 0.32 (range 0.27-4.2), FT4 1.26 (range 0.93-1.7), T3 98.3 (range 80-200), FT3 3.03 (range 2-4.4) 09/10/2024: TSH 0.01, FT4 2.7, T3 201, FT3 6.7, TSI 169 (high), TRAb 7.53 (high) 10/01/2024: TSH 0.04, FT4 2.17 (high, range <1.7), FT3 4.67 (high, range 4.4), T3 146 (normal) Assessment and plan: Mr. Carlton is a 24 y.o. male with a history of schizoaffective disorder/severe bipolar mood extremes (mostly flor but also some past episodes of depression with suicidality), paranoid psychosis, hyperthyroidism, and history of illicit substance use. He is here for a follow-up visit of Graves' disease/hyperthyroidism. Graves' disease was diagnosed in October 2019 and he was started on methimazole. The patient was lost to follow-up soon after treatment was started. He was not seen again until he was recently admitted to the hospital 08/18/23-09/25/23 for schizoaffective disorder and thyroid storm. During the hospitalization he was treated with methimazole, Propranolol, IV hydrocortisone and SSKI drops. 10/31/2023: He was discharged from the hospital on methimazole 20 mg 3 times daily and propranolol 80 mg 3 times daily. He continues on the same regimen. He is living in a healthcare facility and thus has been getting his medications regularly. He reports he has no symptoms of hyperthyroidism, he denies any complaints. He has a minimal tremor of outstretched hands, he has overall gained a good bit of weight since prior to initiation of methimazole during the hospital stay and he has gained approximately 6 pounds since discharged from the hospital. His vital signs have been relatively stable with heart rate recently most often in the 80s and blood pressure readings more often controlled and sometimes mildly elevated. His most recent TFTs on October 11, 2023 have shown improvement with his free T4 into the upper normal range. His last TSH on October 01, 2023 remained suppressed. Patient's liver function tests have been mildly elevated, specifically the alkaline phosphatase. This may be related to hyperthyroidism itself with increased bone turnover. Plan: -Repeat TSH, free T4, T3, hepatic function panel, CBC today. -At present continue methimazole 20 mg 3 times daily. Anticipate will reduce methimazole after labs reviewed. -Continue propranolol 80 mg 3 times daily. Will continue to monitor vital signs closely, twice daily, as would expect we will need may need to reduce the propranolol soon. -Will continue to monitor liver function tests and can tolerate levels that are less than 3 times the upper limit of normal with close monitoring. Will send orders to the facility once we have lab results back. Facility: [facility], ph [phone] Patient notes he will likely be there a while longer. 12/12/2023: Labs have been done between visits with medication adjustments. 11/19/23 labs showed FT4 less than 0.11 with TSH in the low normal range (no T3 was done as ordered at that time)--methimazole was reduced from 10 mg tid to 10 mg daily. T3 was done 11/27/23--low normal range. Most recent labs: 12/05/23 : TSH 0.4 (0.27-4.2), free T4 1.40 (0.93-1.7), total T3 328.2 (80-200), alkaline phosphatase 283 (40-129), ALT 39 (0-41), AST 75 (0-40), other LFTs unremarkable. (While taking methimazole: 10 mg, propanolol: 60 mg TID). Improvement noted in labs with normalization of FT4 and TSH and T3 elevated; methimazole was increased to 10 mg BID on 12/11/23. He is currently taking Methimazole 10 mg BID since 12/11/23 and propanolol 60 mg tid since 11/02/23. The methimazole was increased just yesterday. He denies symptoms of hyperthyroidism/hypothyroidism; denies adverse medication side effects. His LFTs remain mildly elevated with AST elevation on labs last week. Alk phos elevation stable. He continues with heart rate occ elevated and more often in 80s/some 90s and BP more often slightly elevated. Would have expected to need to further decrease propanolol by this point. He denies pre-existing HTN. Plan: Continue plan from 12/11/23 TC with facility, continue methimazole 10 mg BID and current propanolol 60 mg TID. -repeat hepatic function panel today to continue trending. Facility will not need to collect later this week as planned yesterday. -TSH, T3, FT3, FT4 and hepatic function panel to be done in ~4 weeks, facility already has these orders. And to send vitals/current med list with lab results once available. Patient advised of possible adverse medication side effects to report and to notify me if develops such. And will continue to monitor vitals daily. Patient to report dizziness, increased fatigue if occurring as well as change in symptom that may indicate thyroid level abnormality in the meantime. Instructions provided to patient and facility staff accompanying patient today Post visit 12/12/23: Hepatic function received and alkaline phosphatase stable with improved AST noted. Lab rate and TFTs also, had only intended for hepatic function panel today but prior order was evidently in the system. Trend in TFTs since last week supports the need for the increase methimazole dose. 01/30/2024: Labs on 01/07/2024 showed improvement in LFTs with ALT/AST in normal range and decrease in ALP (still above normal though but <1.5 times ULN this time). TFTs showed low FT4. Low normal T3 and mildly low TSH 0.16 this time (compared to lower TSH 0.06 in 11/2023). MMI dose was advised to be decreased from 10 mg bid to 15 mg daily in late 12/2023, and to continue propranolol 60 mg tid. Will repeat labs today since patient is here, but that will be only 2 weeks after the last change, but will give an idea how labs are trending. Counseled him on smoking cessation and effect on eyes in Graves. Counseled on MMI precautions. Printed standing orders for repeat labs as needed down the road. BP and HR seem to be ok on current propranolol, but will consider decreasing the dose if TFTs are stable within normal range. 04/01/2024: MMI dose was decreased from 15 to 10 mg daily around 02/23, then recommended to be increased to 10 mg alternating with 15 mg every other day (average daily dose would be 12.5 mg) in early 03/2024 as TSH was going down with high FT4/FT3. Will get labs repeated today ~10 days after last dose change since he seems to be very sensitive to dose changes. Increased propranolol dose to 60 mg tid; goal resting HR <90 as long as BP is fine; provided them with instructions in that regard. He may need to see cardiology if there is still tachycardia is persistent despite normal TFTs (not yet so far). Will repeat LFTs (had high but improving ALP in last labs in 01/2024) and CBC with labs today (had some immature granulocytes in last CBC and he was recommended to f/u with PCP). Counseled on smoking cessation and to see the eye doctor in case of eye changes. 05/15/2024: Repeat labs in 04/01 showed slighlt high FT3 with TSH 0.01, then 04/11/2024 labs showed normal FT4/T3/FT3 with low TSH 0.04. He was recommended to keep on same MMI dose 10 alternating with 15 mg every other day, average daily dose 12.5 mg. Will repeat labs now to see they are trending (keep on same MMI dose till we get results). LFTs were normal in 03/2024 and CBC with no remarkable penia with mild lymphocytosis. Will repeat CBC with labs. Keep on same propranolol regimen (40 mg q8h PRN fir HR >90 if BP <100/60). Discussed with patient that we may need definitive treatment with SEXTON or surgery if levels continue to fluctuate, but would probably wait till at least the 1 yr lee on MMI hoping he may achieve remission. Counseled on smoking cessation. 09/10/2024: MMI was kept at same dose after 04/2024 labs but then recommended to be decreased to 10 mg daily after labs in 07/2024 showed low FT4 with normal TSH. However, dose was decreased to 5 mg daily, and repeat labs in late July showed normal TFTs but low normal TSH. I expect that we will need to increase dose but will repeat labs now (along with Abs since it has been a year) before adjusting dose. I recommend that tachycardia be evaluated by the facility doctor or primary doctor as it doesn't seem to be necessarily related to the thyroid as heart rate would still be high when thyroid functions are normal or low. 10/23/2024: Labs after visit in 08/2024 showed high TFTs as expected. Dose of MMI was advised to be increased back to 10 mg daily. He had labs after ~3 weeks showing an improvement. TRAb/TSI were still high. We will recheck labs today. Until we get result, will keep on MMI 10 mg daily. I decreased propranolol dose to 20 mg PRN q8h given the low BP sometimes. I counseled patient on MMI precautions, and smoking cessation. When discussed other possible lines of treatment (SEXTON/surgery), he preferred to keep on MMI at this time. Return in about 2 months (around 12/22/2024) for Graves f/u. Time spent reviewing chart, during the encounter, putting orders and coordinating care on the encounter day is 25 minutes. Charles Sequeira MD Endocrinology documented in this encounter [facility] 09-10-2024 Instructions Charles Sequeira MD - 09/10/2024 11:21 AM EDT Keep on same methimazole dose 5 mg daily for now but will repeat labs on the way out then decide if dose needs further adjustment. Methimazole: -This medicine is usually well tolerated, but you need to be aware of possible side effects including decrease in blood cell counts, liver dysfunction, joint/muscle aches, rash, nausea, altered taste sensation. -Let me know if you develop sore throat, fever, any infection, abdominal pain/bloating, loss of appetite, nausea, vomiting, change in urine/stool color, yellowish eye discoloration (if, so you will also need to hold methimazole transiently till we make sure your labs are good). Let me know if you develop any concerning side effects otherwise. Please make sure to evaluate his tachycardia with the facility doctor or primary doctor as it doesn't seem to be necessarily related to the thyroid as heart rate would still be high when thyroid functions are normal or low. documented in this encounter [facility] 09-10-2024 History of Present illness Narrative Images from the original note were not included. Reason for visit/chief complaint: Graves' disease Date: 09/10/2024 Referring Provider: No ref. provider found Primary Care Provider: Amadeo Silver MD HPI: Interval hx/subjective: 09/10/2024: MMI dose was recommended to be decreased to 10 mg daily (from average 12.5 mg daily) in ~mid July 2024, but current med list shows MMI dose of 5 mg daily since that time (called facility and verified dosage). Also includes propranolol 40 mg q8h PRN for HR >90 and to hold if BP <100/60. HR over the last week has been ranging 60s-130. No side effects with MMI. No fatigue, denies palpitations, tremors. Bms are normal. Denies heat/cold intolerance. Weight has been stable; he thinks weight fluctuates within the same range. No bulging eyes/double vision, red/dry eyes. He smokes. No neck lumps/pain or compressive symptoms. 05/15/2024: Currently on MMI 10 alternating with 15 mg every other day, average daily dose 12.5 mg (well tolerated with no side effects), and propranolol 40 mg q8h PRN fir HR >90 if BP <100/60. No fatigue, palpitations, tremors, heat/cold intolerance. Bms are normal. No hair loss/dry skin. Has been gaining weight as he has been eating more. No bulging eyes/double vision, red/dry eyes. He smokes. No neck lumps/pain or compressive symptoms. No vitals received from facility today. 04/01/2024: MMI dose was decreased from 15 to 10 mg daily around 02/23, then recommended to be increased to 10 mg alternating with 15 mg every other day (average daily dose would be 12.5 mg) in early 03/2024 (12/6-7)as TSH was going down with high FT4/FT3. Takes propranolol 40 mg tid. Medication list includes Depakote, olanzapine. No fatigue, palpitations, tremors, heat/cold intolerance. Bms are normal. No hair loss/dry skin, weight has been stable. No abdominal pain, nausea/vomiting. No side effects from MMI. No bulging eyes/double vision, red/dry eyes. He smokes. No neck lumps/pain or compressive symptoms. Only recent vitals were sent; HR 105, BP 120/83 01/30/2024: He has been on MMI; dose was changed to 15 mg daily (starting 01/14), has been taking propranolol 60 mg tid. No side effects from MMI. No dizziness. No fatigue, palpitations, tremors, heat/cold intolerance. Bms are normal. No dry skin/hair loss. Says weight is stable, but per chart he has been gaining some weight. Says mood is more stable. He smokes. No double vision, bulging eyes, red/dry eyes. No neck lumps/pain or compressive symptoms. Medication list includes Depakote, haloperidol PRN, olanzapine. 12/12/23: He is currently residing at [facility] in [facility], ph [phone]--he has been there since discharge from the hospital. Most recent labs: 12/05/23 : TSH 0.4 (0.27-4.2), free T4 1.40 (0.93-1.7), total T3 328.2 (80-200), alkaline phosphatase 283 (40-129), ALT 39 (0-41), AST 75 (0-40), other LFTs unremarkable. (While taking methimazole: 10 mg, propanolol: 60 mg TID). He is currently taking Methimazole 10 mg BID since 12/11/23 and propanolol 60 mg tid since 11/02/23. Mr. Carlton endorses No fatigue, cold intolerance, constipation, dry skin, hair loss, muscle weakness/pain, palpitations, tremors, diarrhea/hyperdefecation, heat intolerance, excessive anxiety/nervousness. He has gained weight--feels appropriate for him. He has No red/dry eyes, bulging eyes, or double vision. He denies dizziness/orthostasis. He denies recent infections/fever/n/v, change in stool color or skin/eye color, no rashed. In regards to mechanical/obstructive symptoms, He endorses No neck lump/swelling, neck pain, dysphagia, choking on food, voice changes, or pressure/choking sensation. VS review from facility records from info faxed yesterday: For the past 7-10days: Blood pressure for the past 7 to 10 days has ranged from 94-153/72-100, more often 120s to 130s/80s Pulse for the past 7 to 10 days-82-119, most often in the 80s. 10/31/23: He is currently residing at [facility] in [facility], ph [phone]--he has been there since discharge from the hospital. Labs have been completed outside after hospitalization. 10/01/23 labs TSH remained suppressed with FT4 top of normal, no T3 available. Patient's free T4 on the most recent labs on 10/11/23 was in the upper normal range; no TSH or T3 level available. His vital signs have been relatively stable with HR and BP intermittently elevated but not consistently. He is presently taking methimazole 20 mg 3 times daily and propranolol 80 mg every 8 hours. He denies nausea, vomiting, abdominal pain, change in skin color, rashes, recent fevers or infections. Denies dizziness or shortness of breath or chest pain. Mr. Carlton endorses No fatigue, cold intolerance, constipation, dry skin, hair loss, muscle weakness/pain, palpitations, tremors, diarrhea/hyperdefecation, heat intolerance, excessive anxiety/nervousness. He has gained weight. He has No red/dry eyes, bulging eyes, or double vision. In regards to mechanical/obstructive symptoms, He endorses No neck lump/swelling, neck pain, dysphagia, choking on food, voice changes, or pressure/choking sensation. VS review from facility records: For the past 7 days: blood pressure range: 103-176/56-122, most readings are in the 120s and 130s/78-90s Heart rate range: 75 -110, mostly in the 80s for the past week. No biotin supplements. Risk factors: -Hx of autoimmune diseases: none other than thyroid known -Family hx of thyroid disease/cancer: unknown -Hx of thyroid surgery: no -Hx of high risk/interfering medications: no -Recent URI/: no:/na -Hx of head/neck irradiation: no -Smoking: yes Background: Mr. Carlton is a 23 y.o. male with a history of schizoaffective disorder/severe bipolar mood extremes (mostly flor but also some past episodes of depression with suicidality), paranoid psychosis, hyperthyroidism, and history of illicit substance use who is here for a follow-up visit of Graves' disease. He was initially seen by [facility] endocrinology in October of 2019 during a hospitalization for psychiatric care and was diagnosed with Graves disease at that time. He was started on methimazole in October of 2019. He did show improvement in status taking methimazole but he was lost to follow up after 02/2020 outpatient endocrinology visit. We did not see him again until the recent hospitalization, admitted 08/18/23-09/25/23, for schizoaffective disorder and hyperthyroidism/thyroid storm. He has a history of refusing treatment/medications for psychiatric and thyroid conditions. Labs upon presentation to the hospital on 08/18/23 TSH 0.05, FT4 >7.7, T4 19.8. Patient was treated with methimazole 20 mg 3 times daily, propranolol 80 mg every 6- 8 hours, IV hydrocortisone, SSKI drops during the hospital stay. His labs did gradually improve during the hospitalization but remained hyperthyroid. He did have mild increase in LFTs during the hospital stay. Labs at discharge from hospital: 09/24/2023: AST 21, ALT 28, alkaline phosphatase 215, total bilirubin less than 0.2, TSH 0.03, free T4 1.4, T3 183. He was discharged to a care facility from the hospital on methimazole 20 mg 3 times daily and propranolol 80 mg every 8 hours. Review of Systems: as per HPI Medical History: Past Medical History: Diagnosis Date ADHD Graves disease Danilo's thyroiditis Hypertension Hyperthyroidism 10/20/2019 Hyperthyroidism Hyperthyroidism Schizo affective schizophrenia (HCC) Schizoaffective disorder (HCC) 10/20/2019 Surgical History: History reviewed. No pertinent surgical history. Family History: Family History Family history unknown: Yes Social History: Social History Socioeconomic History Marital status: Single Tobacco Use Smoking status: Every Day Current packs/day: 1.50 Average packs/day: 1.5 packs/day for 5.0 years (7.5 ttl pk-yrs) Types: Cigarettes Smokeless tobacco: Never Vaping Use Vaping status: Never Used Substance and Sexual Activity Alcohol use: Not Currently Comment: anually Drug use: Yes Types: Marijuana Comment: I don't even smoke pot monthly Sexual activity: Not Currently Social Drivers of Health Food Insecurity: No Food Insecurity (08/21/2023) Hunger Vital Sign Worried About Running Out of Food in the Last Year: Never true Ran Out of Food in the Last Year: Never true Transportation Needs: No Transportation Needs (08/21/2023) PRAPARE - Transportation Lack of Transportation (Medical): No Lack of Transportation (Non-Medical): No Housing Stability: Low Risk (08/21/2023) Housing Stability Vital Sign Unable to Pay for Housing in the Last Year: No Number of Places Lived in the Last Year: 0 Unstable Housing in the Last Year: No Allergies: Allergies Allergen Reactions Grass Pollen-Red Top, Standard Other (See Comments) Watery eyes and sniffles Mite Extract Other (See Comments) Watery eyes and sniffles Current Medications: Current Outpatient Medications Medication Sig Dispense Refill aluminum-magnesium hydroxide-simethicone (MAALOX PLUS) 200-200-20 mg/5 mL Susp Take 30 mL by mouth 4 (four) times a day before meals and nightly . divalproex (DEPAKOTE ER) 500 MG 24 hr tablet Take 1 (one) tablet (500 mg total) by mouth 2 (two) times a day . 60 tablet 0 divalproex (DEPAKOTE) 250 MG delayed release (DR) tablet Take 1 (one) tablet (250 mg total) by mouth nightly . 30 tablet 0 haloperidoL (HALDOL) 5 MG tablet Take 1 (one) tablet (5 mg total) by mouth 4 (four) times a day . hydroCHLOROthiazide (HYDRODIURIL) 25 MG tablet Take 1 (one) tablet (25 mg total) by mouth daily . hydrOXYzine (ATARAX) 50 MG tablet Take 1 (one) tablet (50 mg total) by mouth every 6 (six) hours . lisinopriL (PRINIVIL,ZESTRIL) 10 MG tablet Take by mouth daily . LORazepam (ATIVAN) 1 MG tablet Take 1 (one) tablet (1 mg total) by mouth every 6 (six) hours as needed for anxiety . magnesium hydroxide 400 mg/5 mL Susp Take 30 mL (2,400 mg total) by mouth daily . OLANZapine (ZYPREXA) 10 MG tablet Take 1 (one) tablet (10 mg total) by mouth 2 (two) times a day . 60 tablet 0 propranoloL (INDERAL) 40 MG tablet Take 1 (one) tablet (40 mg total) by mouth every 8 (eight) hours as needed if HR is >90 and hold if BP < 100/60 . 60 tablet 11 traZODone (DESYREL) 50 MG tablet Take 1 (one) tablet (50 mg total) by mouth nightly as needed for sleep . 30 tablet 0 tuberculin (Tubersol) 5 tub. unit /0.1 mL injection Inject 0.1 mL (5 Units total) into the skin once Sign this order in conjunction with the immunization order to satisfy [place] Board of Pharmacy Positive ID requirements for immunization orders. . methIMAzole (TAPAZOLE) 10 MG tablet Take 0.5 (one-half) tablet (5 mg total) by mouth daily . 15 tablet 11 paliperidone palmitate (Invega Sustenna) 234 mg/1.5 mL Syrg Inject 1.5 mL (234 mg total) into the shoulder, thigh, or buttocks every 28 days Start: 10/19/23. (Patient not taking: Reported on 09/10/2024 .) 1.5 mL 0 No current facility-administered medications for this visit. Physical Exam: Vitals: BP 107/76 (BP Location: Left arm, Patient Position: Sitting) Pulse (!) 118 Wt 89.3 kg (196 lb 14.4 oz) BMI 31.78 kg/m , Body mass index is 31.78 kg/m ., Wt Readings from Last 10 Encounters: 09/10/24 89.3 kg (196 lb 14.4 oz) 05/15/24 89.2 kg (196 lb 9.6 oz) 04/01/24 84.9 kg (187 lb 1.6 oz) 01/30/24 84.6 kg (186 lb 8 oz) 12/12/23 81.9 kg (180 lb 9.6 oz) 10/31/23 80.3 kg (177 lb 1.6 oz) 09/19/23 77.9 kg (171 lb 12.8 oz) 08/21/23 54.4 kg (120 lb) 08/18/23 54.4 kg (120 lb) 02/26/20 75.3 kg (166 lb) General/Constitutional: , well-developed Eyes: no lid retraction (stare), no remarkable proptosis, non-icteric, no limitation in eye movement Neck: there is prominent soft thyroid, no tenderness Cardiovascular: regular rhythm Pulmonary/Chest: effort normal Neurological: alert and oriented, DTRs normal upper extremities, no remarkable tremors Skin: warm Psychiatric: mildly flat affect, sitting in chair during visit and answers questions appropriately Lab/Imaging Data: Lab Results Component Value Date WBC 7.33 06/20/2024 HGB 13.2 (L) 06/20/2024 HCT 39.9 (L) 06/20/2024 MCV 89.0 12/12/2023 PLT 232 06/20/2024 Lab Results Component Value Date GLUCOSE 91 08/24/2023 NA 141 08/24/2023 K 4.1 08/24/2023 CL 108 08/24/2023 BUN 13 08/24/2023 CREATININE 0.33 (L) 08/24/2023 Lab Results Component Value Date ALT 31 12/12/2023 AST 21 12/12/2023 ALKPHOS 234 (H) 12/12/2023 BILITOT 0.3 12/12/2023 Lab Results Component Value Date TSH 0.12 (L) 06/20/2024 E2GRAQH 190 (H) 12/12/2023 THYROIDAB 278.1 (H) 10/19/2019 Lab Results Component Value Date CALCIUM 8.7 08/24/2023 PHOS 5.2 (H) 08/24/2023 Lab Results Component Value Date LDLCALC 39 08/18/2023 CHOL 94 (L) 08/18/2023 HDL 44 08/18/2023 TRIG 56 08/18/2023 CHOLHDL 2.1 08/18/2023 Thyroid US 08/27/2023: COMPARISON: None. TECHNIQUE: Thyroid ultrasound utilizing can-scale and color Doppler analysis. FINDINGS: Enlarged, heterogeneous thyroid gland with diffuse increased vascularity. No suspicious thyroid nodules. Right thyroid lobe measures 8.2 x 2.9 x 3.5 cm (43.5 mL). Isthmus measures 0.9 cm in AP dimension. Left thyroid lobe measures 6.7 x 2.8 x 3.2 cm (31.7 mL). IMPRESSION: Enlarged, heterogeneous thyroid gland with diffuse increased vascularity. No suspicious thyroid nodules identified. 05/14/18: TSI 137% (<=122%) 10/19/19: TSI 5 08/18/23 TSH 0.05, FT4 <7.7, T4 19.8. Alkaline phosphatase 126, AST 25, ALT 47, total bilirubin 0.3. 08/20/23 TSI 2.9, T3 >651 08/23/23 TRAB 29 09/24/2023: AST 21, ALT 28, alkaline phosphatase 215, total bilirubin less than 0.2, TSH 0.03, free T4 1.4, T3 183 09/25/2023: White blood cell count 7.90, hemoglobin 13.3, hematocrit 40.4, neutrophils 41.9, absolute neutrophils 3.32. 10/11/2023: Free T4 1.54 (0.93-1.7), no T3 available. White blood cell count 7.26, neutrophils 2.55 and percentage 35.1- Albumin 4.3, alkaline phosphatase 254 (40-129) albumin 4 ALT 27, AST cannot be analyzed due to hemolysis, total and direct bilirubin within normal limits. 10/01/2023: TSH 0.03 (0.27-4.2), free T4 1.70 (0.93-1.7), white blood cell count 7.22, alkaline phosphatase 213 (40-129), T3 uptake 34 (22-35). 10/11/2023: Free T4 1.54 (0.93-1.7), no T3 available. White blood cell count /neutrophils WNL, Albumin 4.3, alkaline phosphatase 254 (40-129) albumin 4, ALT 27, AST cannot be analyzed due to hemolysis, total and direct bilirubin within normal limits. 10/31/2023:TSH 0.04, free T4 0.3 (0.7-1.7), T3 73 (72-170), alkaline phosphatase 250 (40-140), other LFTs within normal limits, CBC and differential unremarkable. (Methimazole 20 mg 3 times daily, propranolol 80 mg every 8 hours) 11/19/2023: TSH 0.41 (0.27-4.2), free T4 less than 0.11 (0.93-1.7). No T3 done as ordered. Alkaline phosphatase 270 (40-129), other LFTs unremarkable. [T3 uptake was drawn instead of the ordered T3.] (Methimazole 10 mg TID and propanolol 60 mg TID). 11/27/2023: T3 109 (97-169) 12/05/23 labs: TSH 0.4 (0.27-4.2), free T4 1.40 (0.93-1.7), total T3 328.2 (80-200), alkaline phosphatase 283 (40-129), ALT 39 (0-41), AST 75 (0-40), other LFTs unremarkable. (methimazole: 10 mg daily, propanolol: 60 mg TID) 12/12/2023: TSH 0.06, free T4 2.2, T3 190 (72-170), white blood cell count 8.56, monocytes mildly elevated other differential within normal limits, alkaline phosphatase 234 (40-140), AST 21, ALT 31. (Had only anticipated LFT being done but lab ran TFTs as well). 01/07/24: TSH 0.16 (0.27-4.2), FT4 0.37 (0.93-1.7), T3 86.4 (80-200), FT3 2.47 (2-4.4), ALP 185 (40-129), other LFTs WNL. 01/30/2024: TSH 5.94, FT4 0.5, T3 87 02/13/2024: TSH 6.69 (high), FT4 0.45 (low, range 0.93-1.7), FT3 2.74 (range 2-4.4), T3 104 (normal, range 80-200), WBC 7.23, ANC 1.79, immature granulocytes 0.09, Hb 13.4, PLT 217, LFTs normal except for ALP 166 (improving, range 40-129), Ca 8.7, alb 4.3, cr 0.96, eGFR >60 03/17/2024: TSH 0.04, FT4 1.85 (high, range <1.7), FT3 4.51 (high, range <4.4), T3 151 (normal) 04/01/2024: TSH 0.01, FT4 1.4, T3 110, FT3 4.3 (high, range <4.2), LFTs normal, CBC normal but mild inc in abs lymphocytes 4.5 and mono 988 04/11/2024: LFTs normal, CBC with no remarkable penia, mild lymphocytosis, TSH 0.04, FT4 1.56, FT3 4 (normal), T3 134.8 05/15/2024: TSH 0.12, FT4 1.1, T3 100, CBC with mildlymphocytosis and monocytosis as before 06/20/2024: TSH 0.12, FT4 1.22, FT3 3.21 07/21/2024: TSH 1.63, FT4 0.67 (low, range 0.93-1.7), T3 90 (range 80-200), FT3 2.31 (range 2-4.4), T4 4.41 (low, range 4.5-11.7), WBC 8.34, N 3.21, PLT 257, Hb 14.4 immature granulocytes <0.03 (high), LFTs normal, K 4.5, cr 0.74, eGFR >60 08/13/2024: TSH 0.32 (range 0.27-4.2), FT4 1.26 (range 0.93-1.7), T3 98.3 (range 80-200), FT3 3.03 (range 2-4.4) Assessment and plan: Mr. Carlton is a 24 y.o. male with a history of schizoaffective disorder/severe bipolar mood extremes (mostly flor but also some past episodes of depression with suicidality), paranoid psychosis, hyperthyroidism, and history of illicit substance use. He is here for a follow-up visit of Graves' disease/hyperthyroidism. Graves' disease was diagnosed in October 2019 and he was started on methimazole. The patient was lost to follow-up soon after treatment was started. He was not seen again until he was recently admitted to the hospital 08/18/23-09/25/23 for schizoaffective disorder and thyroid storm. During the hospitalization he was treated with methimazole, Propranolol, IV hydrocortisone and SSKI drops. 10/31/2023: He was discharged from the hospital on methimazole 20 mg 3 times daily and propranolol 80 mg 3 times daily. He continues on the same regimen. He is living in a healthcare facility and thus has been getting his medications regularly. He reports he has no symptoms of hyperthyroidism, he denies any complaints. He has a minimal tremor of outstretched hands, he has overall gained a good bit of weight since prior to initiation of methimazole during the hospital stay and he has gained approximately 6 pounds since discharged from the hospital. His vital signs have been relatively stable with heart rate recently most often in the 80s and blood pressure readings more often controlled and sometimes mildly elevated. His most recent TFTs on October 11, 2023 have shown improvement with his free T4 into the upper normal range. His last TSH on October 01, 2023 remained suppressed. Patient's liver function tests have been mildly elevated, specifically the alkaline phosphatase. This may be related to hyperthyroidism itself with increased bone turnover. Plan: -Repeat TSH, free T4, T3, hepatic function panel, CBC today. -At present continue methimazole 20 mg 3 times daily. Anticipate will reduce methimazole after labs reviewed. -Continue propranolol 80 mg 3 times daily. Will continue to monitor vital signs closely, twice daily, as would expect we will need may need to reduce the propranolol soon. -Will continue to monitor liver function tests and can tolerate levels that are less than 3 times the upper limit of normal with close monitoring. Will send orders to the facility once we have lab results back. Facility: [facility] in [facility], ph [phone] Patient notes he will likely be there a while longer. 12/12/2023: Labs have been done between visits with medication adjustments. 11/19/23 labs showed FT4 less than 0.11 with TSH in the low normal range (no T3 was done as ordered at that time)--methimazole was reduced from 10 mg tid to 10 mg daily. T3 was done 11/27/23--low normal range. Most recent labs: 12/05/23 : TSH 0.4 (0.27-4.2), free T4 1.40 (0.93-1.7), total T3 328.2 (80-200), alkaline phosphatase 283 (40-129), ALT 39 (0-41), AST 75 (0-40), other LFTs unremarkable. (While taking methimazole: 10 mg, propanolol: 60 mg TID). Improvement noted in labs with normalization of FT4 and TSH and T3 elevated; methimazole was increased to 10 mg BID on 12/11/23. He is currently taking Methimazole 10 mg BID since 12/11/23 and propanolol 60 mg tid since 11/02/23. The methimazole was increased just yesterday. He denies symptoms of hyperthyroidism/hypothyroidism; denies adverse medication side effects. His LFTs remain mildly elevated with AST elevation on labs last week. Alk phos elevation stable. He continues with heart rate occ elevated and more often in 80s/some 90s and BP more often slightly elevated. Would have expected to need to further decrease propanolol by this point. He denies pre-existing HTN. Plan: Continue plan from 12/11/23 TC with facility, continue methimazole 10 mg BID and current propanolol 60 mg TID. -repeat hepatic function panel today to continue trending. Facility will not need to collect later this week as planned yesterday. -TSH, T3, FT3, FT4 and hepatic function panel to be done in ~4 weeks, facility already has these orders. And to send vitals/current med list with lab results once available. Patient advised of possible adverse medication side effects to report and to notify me if develops such. And will continue to monitor vitals daily. Patient to report dizziness, increased fatigue if occurring as well as change in symptom that may indicate thyroid level abnormality in the meantime. Instructions provided to patient and facility staff accompanying patient today Post visit 12/12/23: Hepatic function received and alkaline phosphatase stable with improved AST noted. Lab rate and TFTs also, had only intended for hepatic function panel today but prior order was evidently in the system. Trend in TFTs since last week supports the need for the increase methimazole dose. 01/30/2024: Labs on 01/07/2024 showed improvement in LFTs with ALT/AST in normal range and decrease in ALP (still above normal though but <1.5 times ULN this time). TFTs showed low FT4. Low normal T3 and mildly low TSH 0.16 this time (compared to lower TSH 0.06 in 11/2023). MMI dose was advised to be decreased from 10 mg bid to 15 mg daily in late 12/2023, and to continue propranolol 60 mg tid. Will repeat labs today since patient is here, but that will be only 2 weeks after the last change, but will give an idea how labs are trending. Counseled him on smoking cessation and effect on eyes in Graves. Counseled on MMI precautions. Printed standing orders for repeat labs as needed down the road. BP and HR seem to be ok on current propranolol, but will consider decreasing the dose if TFTs are stable within normal range. 04/01/2024: MMI dose was decreased from 15 to 10 mg daily around 02/23, then recommended to be increased to 10 mg alternating with 15 mg every other day (average daily dose would be 12.5 mg) in early 03/2024 as TSH was going down with high FT4/FT3. Will get labs repeated today ~10 days after last dose change since he seems to be very sensitive to dose changes. Increased propranolol dose to 60 mg tid; goal resting HR <90 as long as BP is fine; provided them with instructions in that regard. He may need to see cardiology if there is still tachycardia is persistent despite normal TFTs (not yet so far). Will repeat LFTs (had high but improving ALP in last labs in 01/2024) and CBC with labs today (had some immature granulocytes in last CBC and he was recommended to f/u with PCP). Counseled on smoking cessation and to see the eye doctor in case of eye changes. 05/15/2024: Repeat labs in 04/01 showed slighlt high FT3 with TSH 0.01, then 04/11/2024 labs showed normal FT4/T3/FT3 with low TSH 0.04. He was recommended to keep on same MMI dose 10 alternating with 15 mg every other day, average daily dose 12.5 mg. Will repeat labs now to see they are trending (keep on same MMI dose till we get results). LFTs were normal in 03/2024 and CBC with no remarkable penia with mild lymphocytosis. Will repeat CBC with labs. Keep on same propranolol regimen (40 mg q8h PRN fir HR >90 if BP <100/60). Discussed with patient that we may need definitive treatment with SEXTON or surgery if levels continue to fluctuate, but would probably wait till at least the 1 yr lee on MMI hoping he may achieve remission. Counseled on smoking cessation. 09/10/2024: MMI was kept at same dose after 04/2024 labs but then recommended to be decreased to 10 mg daily after labs in 07/2024 showed low FT4 with normal TSH. However, dose was decreased to 5 mg daily, and repeat labs in late July showed normal TFTs but low normal TSH. I expect that we will need to increase dose but will repeat labs now (along with Abs since it has been a year) before adjusting dose. I recommend that tachycardia be evaluated by the facility doctor or primary doctor as it doesn't seem to be necessarily related to the thyroid as heart rate would still be high when thyroid functions are normal or low. Return in about 6 weeks (around 10/22/2024) for Graves f/u. Time spent reviewing chart, during the encounter, putting orders and coordinating care on the encounter day is 30 minutes. Charles Sequeira MD Endocrinology documented in this encounter [facility] 09-10-2024 Note Reason for visit/chi ef complaint: Graves' disease Date: 09/10/2024 Referring Provider: No ref. provider found Primary Care Provider: Amadeo Silver MD HPI: Interval hx/subjective: 09/10/2024: MMI dose was recommended to be decreased to 10 mg daily (from average 12.5 mg daily) in ~mid July 2024, but current med list shows MMI dose of 5 mg daily since that time (called facility and verified dosage). Also includes propranolol 40 mg q8h PRN for HR >90 and to hold if BP <100/60. HR over the last week has been ranging 60s-130. No side effects with MMI. No fatigue, denies palpitations, tremors. Bms are normal. Denies heat/cold intolerance. Weight has been stable; he thinks weight fluctuates within the same range. No bulging eyes/double vision, red/dry eyes. He smokes. No neck lumps/pain or compressive symptoms. 05/15/2024: Currently on MMI 10 alternating with 15 mg every other day, average daily dose 12.5 mg (well tolerated with no side effects), and propranolol 40 mg q8h PRN fir HR >90 if BP <100/60. No fatigue, palpitations, tremors, heat/cold intolerance. Bms are normal. No hair loss/dry skin. Has been gaining weight as he has been eating more. No bulging eyes/double vision, red/dry eyes. He smokes. No neck lumps/pain or compressive symptoms. No vitals received from facility today. 04/01/2024: MMI dose was decreased from 15 to 10 mg daily around 02/23, then recommended to be increased to 10 mg alternating with 15 mg every other day (average daily dose would be 12.5 mg) in early 03/2024 (6-7)as TSH was going down with high FT4/FT3. Takes propranolol 40 mg tid. Medication list includes Depakote, olanzapine. No fatigue, palpitations, tremors, heat/cold intolerance. Bms are normal. No hair loss/dry skin, weight has been stable. No abdominal pain, nausea/vomiting. No side effects from MMI. No bulging eyes/double vision, red/dry eyes. He smokes. No neck lumps/pain or compressive symptoms. Only recent vitals were sent; HR 105, BP 120/83 01/30/2024: He has been on MMI; dose was changed to 15 mg daily (starting 01/14), has been taking propranolol 60 mg tid. No side effects from MMI. No dizziness. No fatigue, palpitations, tremors, heat/cold intolerance. Bms are normal. No dry skin/hair loss. Says weight is stable, but per chart he has been gaining some weight. Says mood is more stable. He smokes. No double vision, bulging eyes, red/dry eyes. No neck lumps/pain or compressive symptoms. Medication list includes Depakote, haloperidol PRN, olanzapine. 12/12/23: He is currently residing at [facility], ph [phone]--he has been there since discharge from the hospital. Most recent labs: 12/05/23 : TSH 0.4 (0.27-4.2), free T4 1.40 (0.93-1.7), total T3 328.2 (80-200), alkaline phosphatase 283 (40-129), ALT 39 (0-41), AST 75 (0-40), other LFTs unremarkable. (While taking methimazole: 10 mg, propanolol: 60 mg TID). He is currently taking Methimazole 10 mg BID since 12/11/23 and propanolol 60 mg tid since 11/02/23. Mr. Carlton endorses No fatigue, cold intolerance, constipation, dry skin, hair loss, muscle weakness/pain, palpitations, tremors, diarrhea/hyperdefecation, heat intolerance, excessive anxiety/nervousness. He has gained weight--feels appropriate for him. He has No red/dry eyes, bulging eyes, or double vision. He denies dizziness/orthostasis. He denies recent infections/fever/n/v, change in stool color or skin/eye color, no rashed. In regards to mechanical/obstructive symptoms, He endorses No neck lump/swelling, neck pain, dysphagia, choking on food, voice changes, or pressure/choking sensation. VS review from facility records from info faxed yesterday: For the past 7-10days: Blood pressure for the past 7 to 10 days has ranged from 94-153/72-100, more often 120s to 130s/80s Pulse for the past 7 to 10 days-82-119, most often in the 80s. 10/31/23: He is currently residing at [facility], --he has been there since discharge from the hospital. Labs have been completed outside after hospitalization. 10/01/23 labs TSH remained suppressed with FT4 top of normal, no T3 available. Patient's free T4 on the most recent labs on 10/11/23 was in the upper normal range; no TSH or T3 level available. His vital signs have been relatively stable with HR and BP intermittently elevated but not consistently. He is presently taking methimazole 20 mg 3 times daily and propranolol 80 mg every 8 hours. He denies nausea, vomiting, abdominal pain, change in skin color, rashes, recent fevers or infections. Denies dizziness or shortness of breath or chest pain. Mr. Carlton endorses No fatigue, cold intolerance, constipation, dry skin, hair loss, muscle weakness/pain, palpitations, tremors, diarrhea/hyperdefecation, heat intolerance, excessive anxiety/nervousness. He has gained weight. He has No red/dry eyes, bulging eyes, or double vision. In regards t (more content not included)... [facility] 05-15-2024 Instructions Charles Sequeira MD - 05/15/2024 2:44 PM EST Labs on the way out. Keep on same methimazole and propranolol dosage until we get test results from today's labs. I printed standing orders for labs if needed in-between visits. Let me know in case of change in symptoms (significant fatigue, racing heart, tremors, change in bowel movements, feeling colder/warmer, remarkable weight change,..). Methimazole: This medicine is usually well tolerated, but you need to be aware of possible side effects including decrease in blood cell counts, liver dysfunction, joint/muscle aches, rash, nausea, altered taste sensation. Let me know if you develop sore throat, fever, any infection, abdominal pain/bloating, loss of appetite, nausea, vomiting, change in urine/stool color, yellowish eye discoloration (if, so you will also need to hold methimazole transiently till we make sure your labs are good). Let me know if you develop any concerning side effects otherwise. documented in this encounter [facility] 05-15-2024 History of Present illness Narrative Images from the original note were not included. Reason for visit/chief complaint: Graves' disease Date: 05/15/2024 Referring Provider: No ref. provider found Primary Care Provider: Amadeo Silver MD HPI: Interval hx/subjective: 05/15/2024: Currently on MMI 10 alternating with 15 mg every other day, average daily dose 12.5 mg (well tolerated with no side effects), and propranolol 40 mg q8h PRN fir HR >90 if BP <100/60. No fatigue, palpitations, tremors, heat/cold intolerance. Bms are normal. No hair loss/dry skin. Has been gaining weight as he has been eating more. No bulging eyes/double vision, red/dry eyes. He smokes. No neck lumps/pain or compressive symptoms. No vitals received from facility today. 04/01/2024: MMI dose was decreased from 15 to 10 mg daily around 02/23, then recommended to be increased to 10 mg alternating with 15 mg every other day (average daily dose would be 12.5 mg) in early 03/2024 (03/21-7)as TSH was going down with high FT4/FT3. Takes propranolol 40 mg tid. Medication list includes Depakote, olanzapine. No fatigue, palpitations, tremors, heat/cold intolerance. Bms are normal. No hair loss/dry skin, weight has been stable. No abdominal pain, nausea/vomiting. No side effects from MMI. No bulging eyes/double vision, red/dry eyes. He smokes. No neck lumps/pain or compressive symptoms. Only recent vitals were sent; HR 105, BP 120/83 01/30/2024: He has been on MMI; dose was changed to 15 mg daily (starting 01/14), has been taking propranolol 60 mg tid. No side effects from MMI. No dizziness. No fatigue, palpitations, tremors, heat/cold intolerance. Bms are normal. No dry skin/hair loss. Says weight is stable, but per chart he has been gaining some weight. Says mood is more stable. He smokes. No double vision, bulging eyes, red/dry eyes. No neck lumps/pain or compressive symptoms. Medication list includes Depakote, haloperidol PRN, olanzapine. 12/12/23: He is currently residing at [facility], ph [phone]--he has been there since discharge from the hospital. Most recent labs: 12/05/23 : TSH 0.4 (0.27-4.2), free T4 1.40 (0.93-1.7), total T3 328.2 (80-200), alkaline phosphatase 283 (40-129), ALT 39 (0-41), AST 75 (0-40), other LFTs unremarkable. (While taking methimazole: 10 mg, propanolol: 60 mg TID). He is currently taking Methimazole 10 mg BID since 12/11/23 and propanolol 60 mg tid since 11/02/23. Mr. Carlton endorses No fatigue, cold intolerance, constipation, dry skin, hair loss, muscle weakness/pain, palpitations, tremors, diarrhea/hyperdefecation, heat intolerance, excessive anxiety/nervousness. He has gained weight--feels appropriate for him. He has No red/dry eyes, bulging eyes, or double vision. He denies dizziness/orthostasis. He denies recent infections/fever/n/v, change in stool color or skin/eye color, no rashed. In regards to mechanical/obstructive symptoms, He endorses No neck lump/swelling, neck pain, dysphagia, choking on food, voice changes, or pressure/choking sensation. VS review from facility records from info faxed yesterday: For the past 7-10days: Blood pressure for the past 7 to 10 days has ranged from 94-153/72-100, more often 120s to 130s/80s Pulse for the past 7 to 10 days-82-119, most often in the 80s. 10/31/23: He is currently residing at [facility], ph [phone]--he has been there since discharge from the hospital. Labs have been completed outside after hospitalization. 10/01/23 labs TSH remained suppressed with FT4 top of normal, no T3 available. Patient's free T4 on the most recent labs on 10/11/23 was in the upper normal range; no TSH or T3 level available. His vital signs have been relatively stable with HR and BP intermittently elevated but not consistently. He is presently taking methimazole 20 mg 3 times daily and propranolol 80 mg every 8 hours. He denies nausea, vomiting, abdominal pain, change in skin color, rashes, recent fevers or infections. Denies dizziness or shortness of breath or chest pain. Mr. Carlton endorses No fatigue, cold intolerance, constipation, dry skin, hair loss, muscle weakness/pain, palpitations, tremors, diarrhea/hyperdefecation, heat intolerance, excessive anxiety/nervousness. He has gained weight. He has No red/dry eyes, bulging eyes, or double vision. In regards to mechanical/obstructive symptoms, He endorses No neck lump/swelling, neck pain, dysphagia, choking on food, voice changes, or pressure/choking sensation. VS review from facility records: For the past 7 days: blood pressure range: 103-176/56-122, most readings are in the 120s and 130s/78-90s Heart rate range: 75 -110, mostly in the 80s for the past week. No biotin supplements. Risk factors: -Hx of autoimmune diseases: none other than thyroid known -Family hx of thyroid disease/cancer: unknown -Hx of thyroid surgery: no -Hx of high risk/interfering medications: no -Recent URI/: no:/na -Hx of head/neck irradiation: no -Smoking: yes Background: Mr. Carlton is a 23 y.o. male with a history of schizoaffective disorder/severe bipolar mood extremes (mostly flor but also some past episodes of depression with suicidality), paranoid psychosis, hyperthyroidism, and history of illicit substance use who is here for a follow-up visit of Graves' disease. He was initially seen by [facility] endocrinology in October of 2019 during a hospitalization for psychiatric care and was diagnosed with Graves disease at that time. He was started on methimazole in October of 2019. He did show improvement in status taking methimazole but he was lost to follow up after 02/2020 outpatient endocrinology visit. We did not see him again until the recent hospitalization, admitted 08/18/23-09/25/23, for schizoaffective disorder and hyperthyroidism/thyroid storm. He has a history of refusing treatment/medications for psychiatric and thyroid conditions. Labs upon presentation to the hospital on 08/18/23 TSH 0.05, FT4 >7.7, T4 19.8. Patient was treated with methimazole 20 mg 3 times daily, propranolol 80 mg every 6- 8 hours, IV hydrocortisone, SSKI drops during the hospital stay. His labs did gradually improve during the hospitalization but remained hyperthyroid. He did have mild increase in LFTs during the hospital stay. Labs at discharge from hospital: 09/24/2023: AST 21, ALT 28, alkaline phosphatase 215, total bilirubin less than 0.2, TSH 0.03, free T4 1.4, T3 183. He was discharged to a care facility from the hospital on methimazole 20 mg 3 times daily and propranolol 80 mg every 8 hours. Review of Systems: as per HPI Medical History: Past Medical History: Diagnosis Date ADHD Graves disease Danilo's thyroiditis Hypertension Hyperthyroidism 10/20/2019 Hyperthyroidism Hyperthyroidism Schizo affective schizophrenia (HCC) Schizoaffective disorder (HCC) 10/20/2019 Surgical History: History reviewed. No pertinent surgical history. Family History: Family History Family history unknown: Yes Social History: Social History Socioeconomic History Marital status: Single Tobacco Use Smoking status: Every Day Current packs/day: 1.50 Average packs/day: 1.5 packs/day for 5.0 years (7.5 ttl pk-yrs) Types: Cigarettes Smokeless tobacco: Never Vaping Use Vaping status: Never Used Substance and Sexual Activity Alcohol use: Not Currently Comment: anually Drug use: Yes Types: Marijuana Comment: I don't even smoke pot monthly Sexual activity: Not Currently Social Drivers of Health Food Insecurity: No Food Insecurity (08/21/2023) Hunger Vital Sign Worried About Running Out of Food in the Last Year: Never true Ran Out of Food in the Last Year: Never true Transportation Needs: No Transportation Needs (08/21/2023) PRAPARE - Transportation Lack of Transportation (Medical): No Lack of Transportation (Non-Medical): No Housing Stability: Low Risk (08/21/2023) Housing Stability Vital Sign Unable to Pay for Housing in the Last Year: No Number of Places Lived in the Last Year: 0 Unstable Housing in the Last Year: No Allergies: Allergies Allergen Reactions Grass Pollen-Red Top, Standard Other (See Comments) Watery eyes and sniffles Mite Extract Other (See Comments) Watery eyes and sniffles Current Medications: Current Outpatient Medications Medication Sig Dispense Refill aluminum-magnesium hydroxide-simethicone (MAALOX PLUS) 200-200-20 mg/5 mL Susp Take 30 mL by mouth 4 (four) times a day before meals and nightly . divalproex (DEPAKOTE ER) 500 MG 24 hr tablet Take 1 (one) tablet (500 mg total) by mouth 2 (two) times a day . 60 tablet 0 divalproex (DEPAKOTE) 250 MG delayed release (DR) tablet Take 1 (one) tablet (250 mg total) by mouth nightly . 30 tablet 0 haloperidoL (HALDOL) 5 MG tablet Take 1 (one) tablet (5 mg total) by mouth 4 (four) times a day . hydroCHLOROthiazide (HYDRODIURIL) 25 MG tablet Take 1 (one) tablet (25 mg total) by mouth daily . hydrOXYzine (ATARAX) 50 MG tablet Take 1 (one) tablet (50 mg total) by mouth every 6 (six) hours . lisinopriL (PRINIVIL,ZESTRIL) 10 MG tablet Take by mouth daily . LORazepam (ATIVAN) 1 MG tablet Take 1 (one) tablet (1 mg total) by mouth every 6 (six) hours as needed for anxiety . magnesium hydroxide 400 mg/5 mL Susp Take 30 mL (2,400 mg total) by mouth daily . methIMAzole (TAPAZOLE) 10 MG tablet Take 1.5 (one and a half) tablets (15 mg total) by mouth daily . 45 tablet 11 OLANZapine (ZYPREXA) 10 MG tablet Take 1 (one) tablet (10 mg total) by mouth 2 (two) times a day . 60 tablet 0 propranoloL (INDERAL) 40 MG tablet Take 1 (one) tablet (40 mg total) by mouth every 8 (eight) hours as needed if HR is >90 and hold if BP < 100/60 . 60 tablet 11 traZODone (DESYREL) 50 MG tablet Take 1 (one) tablet (50 mg total) by mouth nightly as needed for sleep . 30 tablet 0 tuberculin (Tubersol) 5 tub. unit /0.1 mL injection Inject 0.1 mL (5 Units total) into the skin once Sign this order in conjunction with the immunization order to satisfy [place] Board of Pharmacy Positive ID requirements for immunization orders. . paliperidone palmitate (Invega Sustenna) 234 mg/1.5 mL Syrg Inject 1.5 mL (234 mg total) into the shoulder, thigh, or buttocks every 28 days Start: 10/19/23. (Patient not taking: Reported on 12/12/2023 .) 1.5 mL 0 No current facility-administered medications for this visit. Physical Exam: Vitals: BP 102/72 Pulse 82 Wt 89.2 kg (196 lb 9.6 oz) BMI 31.73 kg/m , Body mass index is 31.73 kg/m ., Wt Readings from Last 10 Encounters: 05/15/24 89.2 kg (196 lb 9.6 oz) 04/01/24 84.9 kg (187 lb 1.6 oz) 01/30/24 84.6 kg (186 lb 8 oz) 12/12/23 81.9 kg (180 lb 9.6 oz) 10/31/23 80.3 kg (177 lb 1.6 oz) 09/19/23 77.9 kg (171 lb 12.8 oz) 08/21/23 54.4 kg (120 lb) 08/18/23 54.4 kg (120 lb) 02/26/20 75.3 kg (166 lb) 02/11/20 71.2 kg (157 lb) General/Constitutional: , well-developed Eyes: no lid retraction (stare), no remarkable proptosis (but R eye may be a bit more prominent), non-icteric, no limitation in eye movement Neck: there is prominent soft thyroid, no bruit, no tenderness Cardiovascular: regular rhythm Pulmonary/Chest: effort normal Neurological: alert and oriented, DTRs normal upper extremities, no remarkable tremors Skin: warm Psychiatric: flat affect, sitting in chair during visit and answers questions appropriately Lab/Imaging Data: Lab Results Component Value Date WBC 8.56 12/12/2023 HGB 14.3 12/12/2023 HCT 43.5 12/12/2023 MCV 89.0 12/12/2023 PLT 237 12/12/2023 Lab Results Component Value Date GLUCOSE 91 08/24/2023 NA 141 08/24/2023 K 4.1 08/24/2023 CL 108 08/24/2023 BUN 13 08/24/2023 CREATININE 0.33 (L) 08/24/2023 Lab Results Component Value Date ALT 31 12/12/2023 AST 21 12/12/2023 ALKPHOS 234 (H) 12/12/2023 BILITOT 0.3 12/12/2023 Lab Results Component Value Date TSH 0.06 (L) 12/12/2023 I1EHUMV 190 (H) 12/12/2023 THYROIDAB 278.1 (H) 10/19/2019 Lab Results Component Value Date CALCIUM 8.7 08/24/2023 PHOS 5.2 (H) 08/24/2023 Lab Results Component Value Date LDLCALC 39 08/18/2023 CHOL 94 (L) 08/18/2023 HDL 44 08/18/2023 TRIG 56 08/18/2023 CHOLHDL 2.1 08/18/2023 Thyroid US 08/27/2023: COMPARISON: None. TECHNIQUE: Thyroid ultrasound utilizing can-scale and color Doppler analysis. FINDINGS: Enlarged, heterogeneous thyroid gland with diffuse increased vascularity. No suspicious thyroid nodules. Right thyroid lobe measures 8.2 x 2.9 x 3.5 cm (43.5 mL). Isthmus measures 0.9 cm in AP dimension. Left thyroid lobe measures 6.7 x 2.8 x 3.2 cm (31.7 mL). IMPRESSION: Enlarged, heterogeneous thyroid gland with diffuse increased vascularity. No suspicious thyroid nodules identified. 05/14/18: TSI 137% (<=122%) 10/19/19: TSI 5 08/18/23 TSH 0.05, FT4 <7.7, T4 19.8. Alkaline phosphatase 126, AST 25, ALT 47, total bilirubin 0.3. 08/20/23 TSI 2.9, T3 >651 08/23/23 TRAB 29 09/24/2023: AST 21, ALT 28, alkaline phosphatase 215, total bilirubin less than 0.2, TSH 0.03, free T4 1.4, T3 183 09/25/2023: White blood cell count 7.90, hemoglobin 13.3, hematocrit 40.4, neutrophils 41.9, absolute neutrophils 3.32. 10/11/2023: Free T4 1.54 (0.93-1.7), no T3 available. White blood cell count 7.26, neutrophils 2.55 and percentage 35.1- Albumin 4.3, alkaline phosphatase 254 (40-129) albumin 4 ALT 27, AST cannot be analyzed due to hemolysis, total and direct bilirubin within normal limits. 10/01/2023: TSH 0.03 (0.27-4.2), free T4 1.70 (0.93-1.7), white blood cell count 7.22, alkaline phosphatase 213 (40-129), T3 uptake 34 (22-35). 10/11/2023: Free T4 1.54 (0.93-1.7), no T3 available. White blood cell count /neutrophils WNL, Albumin 4.3, alkaline phosphatase 254 (40-129) albumin 4, ALT 27, AST cannot be analyzed due to hemolysis, total and direct bilirubin within normal limits. 10/31/2023:TSH 0.04, free T4 0.3 (0.7-1.7), T3 73 (72-170), alkaline phosphatase 250 (40-140), other LFTs within normal limits, CBC and differential unremarkable. (Methimazole 20 mg 3 times daily, propranolol 80 mg every 8 hours) 11/19/2023: TSH 0.41 (0.27-4.2), free T4 less than 0.11 (0.93-1.7). No T3 done as ordered. Alkaline phosphatase 270 (40-129), other LFTs unremarkable. [T3 uptake was drawn instead of the ordered T3.] (Methimazole 10 mg TID and propanolol 60 mg TID). 11/27/2023: T3 109 (97-169) 12/05/23 labs: TSH 0.4 (0.27-4.2), free T4 1.40 (0.93-1.7), total T3 328.2 (80-200), alkaline phosphatase 283 (40-129), ALT 39 (0-41), AST 75 (0-40), other LFTs unremarkable. (methimazole: 10 mg daily, propanolol: 60 mg TID) 12/12/2023: TSH 0.06, free T4 2.2, T3 190 (72-170), white blood cell count 8.56, monocytes mildly elevated other differential within normal limits, alkaline phosphatase 234 (40-140), AST 21, ALT 31. (Had only anticipated LFT being done but lab ran TFTs as well). 01/07/24: TSH 0.16 (0.27-4.2), FT4 0.37 (0.93-1.7), T3 86.4 (80-200), FT3 2.47 (2-4.4), ALP 185 (40-129), other LFTs WNL. 01/30/2024: TSH 5.94, FT4 0.5, T3 87 02/13/2024: TSH 6.69 (high), FT4 0.45 (low, range 0.93-1.7), FT3 2.74 (range 2-4.4), T3 104 (normal, range 80-200), WBC 7.23, ANC 1.79, immature granulocytes 0.09, Hb 13.4, PLT 217, LFTs normal except for ALP 166 (improving, range 40-129), Ca 8.7, alb 4.3, cr 0.96, eGFR >60 03/17/2024: TSH 0.04, FT4 1.85 (high, range <1.7), FT3 4.51 (high, range <4.4), T3 151 (normal) 04/01/2024: TSH 0.01, FT4 1.4, T3 110, FT3 4.3 (high, range <4.2), LFTs normal, CBC normal but mild inc in abs lymphocytes 4.5 and mono 988 04/11/2024: LFTs normal, CBC with no remarkable penia, mild lymphocytosis, TSH 0.04, FT4 1.56, FT3 4 (normal), T3 134.8 Assessment and plan: Mr. Carlton is a 24 y.o. male with a history of schizoaffective disorder/severe bipolar mood extremes (mostly flor but also some past episodes of depression with suicidality), paranoid psychosis, hyperthyroidism, and history of illicit substance use. He is here for a follow-up visit of Graves' disease/hyperthyroidism. Graves' disease was diagnosed in October 2019 and he was started on methimazole. The patient was lost to follow-up soon after treatment was started. He was not seen again until he was recently admitted to the hospital 08/18/23-09/25/23 for schizoaffective disorder and thyroid storm. During the hospitalization he was treated with methimazole, Propranolol, IV hydrocortisone and SSKI drops. 10/31/2023: He was discharged from the hospital on methimazole 20 mg 3 times daily and propranolol 80 mg 3 times daily. He continues on the same regimen. He is living in a healthcare facility and thus has been getting his medications regularly. He reports he has no symptoms of hyperthyroidism, he denies any complaints. He has a minimal tremor of outstretched hands, he has overall gained a good bit of weight since prior to initiation of methimazole during the hospital stay and he has gained approximately 6 pounds since discharged from the hospital. His vital signs have been relatively stable with heart rate recently most often in the 80s and blood pressure readings more often controlled and sometimes mildly elevated. His most recent TFTs on October 11, 2023 have shown improvement with his free T4 into the upper normal range. His last TSH on October 01, 2023 remained suppressed. Patient's liver function tests have been mildly elevated, specifically the alkaline phosphatase. This may be related to hyperthyroidism itself with increased bone turnover. Plan: -Repeat TSH, free T4, T3, hepatic function panel, CBC today. -At present continue methimazole 20 mg 3 times daily. Anticipate will reduce methimazole after labs reviewed. -Continue propranolol 80 mg 3 times daily. Will continue to monitor vital signs closely, twice daily, as would expect we will need may need to reduce the propranolol soon. -Will continue to monitor liver function tests and can tolerate levels that are less than 3 times the upper limit of normal with close monitoring. Will send orders to the facility once we have lab results back. Facility: [facility] in [facility], ph [phone] Patient notes he will likely be there a while longer. 12/12/2023: Labs have been done between visits with medication adjustments. 11/19/23 labs showed FT4 less than 0.11 with TSH in the low normal range (no T3 was done as ordered at that time)--methimazole was reduced from 10 mg tid to 10 mg daily. T3 was done 11/27/23--low normal range. Most recent labs: 12/05/23 : TSH 0.4 (0.27-4.2), free T4 1.40 (0.93-1.7), total T3 328.2 (80-200), alkaline phosphatase 283 (40-129), ALT 39 (0-41), AST 75 (0-40), other LFTs unremarkable. (While taking methimazole: 10 mg, propanolol: 60 mg TID). Improvement noted in labs with normalization of FT4 and TSH and T3 elevated; methimazole was increased to 10 mg BID on 12/11/23. He is currently taking Methimazole 10 mg BID since 12/11/23 and propanolol 60 mg tid since 11/02/23. The methimazole was increased just yesterday. He denies symptoms of hyperthyroidism/hypothyroidism; denies adverse medication side effects. His LFTs remain mildly elevated with AST elevation on labs last week. Alk phos elevation stable. He continues with heart rate occ elevated and more often in 80s/some 90s and BP more often slightly elevated. Would have expected to need to further decrease propanolol by this point. He denies pre-existing HTN. Plan: Continue plan from 12/11/23 TC with facility, continue methimazole 10 mg BID and current propanolol 60 mg TID. -repeat hepatic function panel today to continue trending. Facility will not need to collect later this week as planned yesterday. -TSH, T3, FT3, FT4 and hepatic function panel to be done in ~4 weeks, facility already has these orders. And to send vitals/current med list with lab results once available. Patient advised of possible adverse medication side effects to report and to notify me if develops such. And will continue to monitor vitals daily. Patient to report dizziness, increased fatigue if occurring as well as change in symptom that may indicate thyroid level abnormality in the meantime. Instructions provided to patient and facility staff accompanying patient today Post visit 12/12/23: Hepatic function received and alkaline phosphatase stable with improved AST noted. Lab rate and TFTs also, had only intended for hepatic function panel today but prior order was evidently in the system. Trend in TFTs since last week supports the need for the increase methimazole dose. 01/30/2024: Labs on 01/07/2024 showed improvement in LFTs with ALT/AST in normal range and decrease in ALP (still above normal though but <1.5 times ULN this time). TFTs showed low FT4. Low normal T3 and mildly low TSH 0.16 this time (compared to lower TSH 0.06 in 11/2023). MMI dose was advised to be decreased from 10 mg bid to 15 mg daily in late 12/2023, and to continue propranolol 60 mg tid. Will repeat labs today since patient is here, but that will be only 2 weeks after the last change, but will give an idea how labs are trending. Counseled him on smoking cessation and effect on eyes in Graves. Counseled on MMI precautions. Printed standing orders for repeat labs as needed down the road. BP and HR seem to be ok on current propranolol, but will consider decreasing the dose if TFTs are stable within normal range. 04/01/2024: MMI dose was decreased from 15 to 10 mg daily around 02/23, then recommended to be increased to 10 mg alternating with 15 mg every other day (average daily dose would be 12.5 mg) in early 03/2024 as TSH was going down with high FT4/FT3. Will get labs repeated today ~10 days after last dose change since he seems to be very sensitive to dose changes. Increased propranolol dose to 60 mg tid; goal resting HR <90 as long as BP is fine; provided them with instructions in that regard. He may need to see cardiology if there is still tachycardia is persistent despite normal TFTs (not yet so far). Will repeat LFTs (had high but improving ALP in last labs in 01/2024) and CBC with labs today (had some immature granulocytes in last CBC and he was recommended to f/u with PCP). Counseled on smoking cessation and to see the eye doctor in case of eye changes. 05/15/2024: Repeat labs in 04/01 showed slighlt high FT3 with TSH 0.01, then 04/11/2024 labs showed normal FT4/T3/FT3 with low TSH 0.04. He was recommended to keep on same MMI dose 10 alternating with 15 mg every other day, average daily dose 12.5 mg. Will repeat labs now to see they are trending (keep on same MMI dose till we get results). LFTs were normal in 03/2024 and CBC with no remarkable penia with mild lymphocytosis. Will repeat CBC with labs. Keep on same propranolol regimen (40 mg q8h PRN fir HR >90 if BP <100/60). Discussed with patient that we may need definitive treatment with SEXTON or surgery if levels continue to fluctuate, but would probably wait till at least the 1 yr lee on MMI hoping he may achieve remission. Counseled on smoking cessation. Return in about 6 weeks (around 06/26/2024) for Graves f/u. Charles Sequeira MD Endocrinology documented in this encounter [facility] 05-15-2024 Note Reason for visit/chi ef complaint: Graves' disease Date: 05/15/2024 Referring Provider: No ref. provider found Primary Care Provider: Amadeo Silver MD HPI: Interval hx/subjective: 05/15/2024: Currently on MMI 10 alternating with 15 mg every other day, average daily dose 12.5 mg (well tolerated with no side effects), and propranolol 40 mg q8h PRN fir HR >90 if BP <100/60. No fatigue, palpitations, tremors, heat/cold intolerance. Bms are normal. No hair loss/dry skin. Has been gaining weight as he has been eating more. No bulging eyes/double vision, red/dry eyes. He smokes. No neck lumps/pain or compressive symptoms. No vitals received from facility today. 04/01/2024: MMI dose was decreased from 15 to 10 mg daily around 02/23, then recommended to be increased to 10 mg alternating with 15 mg every other day (average daily dose would be 12.5 mg) in early 03/2024 (03/21-)as TSH was going down with high FT4/FT3. Takes propranolol 40 mg tid. Medication list includes Depakote, olanzapine. No fatigue, palpitations, tremors, heat/cold intolerance. Bms are normal. No hair loss/dry skin, weight has been stable. No abdominal pain, nausea/vomiting. No side effects from MMI. No bulging eyes/double vision, red/dry eyes. He smokes. No neck lumps/pain or compressive symptoms. Only recent vitals were sent; HR 105, BP 120/83 01/30/2024: He has been on MMI; dose was changed to 15 mg daily (starting 01/14), has been taking propranolol 60 mg tid. No side effects from MMI. No dizziness. No fatigue, palpitations, tremors, heat/cold intolerance. Bms are normal. No dry skin/hair loss. Says weight is stable, but per chart he has been gaining some weight. Says mood is more stable. He smokes. No double vision, bulging eyes, red/dry eyes. No neck lumps/pain or compressive symptoms. Medication list includes Depakote, haloperidol PRN, olanzapine. 12/12/23: He is currently residing at [facility] in [facility], ph [phone]--he has been there since discharge from the hospital. Most recent labs: 12/05/23 : TSH 0.4 (0.27-4.2), free T4 1.40 (0.93-1.7), total T3 328.2 (80-200), alkaline phosphatase 283 (40-129), ALT 39 (0-41), AST 75 (0-40), other LFTs unremarkable. (While taking methimazole: 10 mg, propanolol: 60 mg TID). He is currently taking Methimazole 10 mg BID since 12/11/23 and propanolol 60 mg tid since 11/02/23. Mr. Carlton endorses No fatigue, cold intolerance, constipation, dry skin, hair loss, muscle weakness/pain, palpitations, tremors, diarrhea/hyperdefecation, heat intolerance, excessive anxiety/nervousness. He has gained weight--feels appropriate for him. He has No red/dry eyes, bulging eyes, or double vision. He denies dizziness/orthostasis. He denies recent infections/fever/n/v, change in stool color or skin/eye color, no rashed. In regards to mechanical/obstructive symptoms, He endorses No neck lump/swelling, neck pain, dysphagia, choking on food, voice changes, or pressure/choking sensation. VS review from facility records from info faxed yesterday: For the past 7-10days: Blood pressure for the past 7 to 10 days has ranged from 94-153/72-100, more often 120s to 130s/80s Pulse for the past 7 to 10 days-82-119, most often in the 80s. 10/31/23: He is currently residing at [facility], --he has been there since discharge from the hospital. Labs have been completed outside after hospitalization. 10/01/23 labs TSH remained suppressed with FT4 top of normal, no T3 available. Patient's free T4 on the most recent labs on 10/11/23 was in the upper normal range; no TSH or T3 level available. His vital signs have been relatively stable with HR and BP intermittently elevated but not consistently. He is presently taking methimazole 20 mg 3 times daily and propranolol 80 mg every 8 hours. He denies nausea, vomiting, abdominal pain, change in skin color, rashes, recent fevers or infections. Denies dizziness or shortness of breath or chest pain. Mr. Carlton endorses No fatigue, cold intolerance, constipation, dry skin, hair loss, muscle weakness/pain, palpitations, tremors, diarrhea/hyperdefecation, heat intolerance, excessive anxiety/nervousness. He has gained weight. He has No red/dry eyes, bulging eyes, or double vision. In regards to mechanical/obstructive symptoms, He endorses No neck lump/swelling, neck pain, dysphagia, choking on food, voice changes, or pressure/choking sensation. VS review from facility records: For the past 7 days: blood pressure range: 103-176/56-122, most readings are in the 120s and 130s/78-90s Heart rate range: 75 -110, mostly in the 80s for the past week. No biotin supplements. Risk factors: -Hx of autoimmune diseases: none other than thyroid known -Family hx of thyroid disease/cancer: unknown -Hx of thyroid surgery: no -Hx of high risk/interfering medications: no -Recent URI/: no:/na -Hx of head/neck irradiati (more content not included)... [facility] 04-21-2024 History of Present illness Narrative Call to facility and spoke with nurse, Krysten. She reports patient has not had any dizziness or other symptoms. He did have a few occurrences of low BP and one low pulse as follows: 1/2 AM 84/56 1/3 AM 89/57 P 58 1/ AM 95/58 1/5 AM 100/65 Instructed facility nurse to send BP/P log in 7-10 days. Provider updated. Rec'd additional BP reads and Pulse rate data from facility--info from 04/15-04/17/24--has had two BP reads in the 80s/50s-60s; both morning reads. Otherwise BP range is 84-121/56-80. HR range 67-111. Please call facility--is patient having dizziness? Has he had more systolic BP reads under 90 since 04/17/24? Or pulse levels under 60? If yes to either, will need to reduce propanolol--please let me know and please have them send the vitals again if he is having low reads/dizziness. If no symptoms and no recurrence of systolic BP under 90--then please have them send vital logs again 7-10 days and sooner if any changes if patient status (dizziness, low BP or pulse as per prior directions). Thank you Vital signs were sent after propranolol adjustment made on April 03. Propranolol is 60 mg 3 times daily. More often heart rate has been under 90. There have been a few excursions in the mid 90s and once up to 106. More recent blood pressures have been in the lower normal range, occasionally systolic is in the upper 90s. More often blood pressure is low 100s over 70s-80s Would not recommend adjustments at present. Has been given prior instructions to notify office if patient is having significant fatigue, dizziness or symptoms of low blood pressure or if heart rate is frequently above 90. documented in this encounter [facility] 04-19-2024 Note Rec'd additional BP reads and Pulse rate data from facility--info from 04/15-04/17/24--has had two BP reads in the 80s/50s-60s; both morning reads. Otherwise BP range is 84-121/56-80. HR range 67-111. Please call facility--is patient having dizziness? Has he had more systolic BP reads under 90 since 04/17/24? Or pulse levels under 60? If yes to either, will need to reduce propanolol--please let me know and please have them send the vitals again if he is having low reads/dizziness. If no symptoms and no recurrence of systolic BP under 90--then please have them send vital logs again 7-10 days and sooner if any changes if patient status (dizziness, low BP or pulse as per prior directions). Thank you AUTHENTICATED BY LEOPOLDO HOSKINS, ON 04/19/2024 16:46:31 [facility] 04-19-2024 History of Present illness Narrative Rec'd additional BP reads and Pulse rate data from facility--info from 04/15-04/17/24--has had two BP reads in the 80s/50s-60s; both morning reads. Otherwise BP range is 84-121/56-80. HR range 67-111. Please call facility--is patient having dizziness? Has he had more systolic BP reads under 90 since 04/17/24? Or pulse levels under 60? If yes to either, will need to reduce propanolol--please let me know and please have them send the vitals again if he is having low reads/dizziness. If no symptoms and no recurrence of systolic BP under 90--then please have them send vital logs again 7-10 days and sooner if any changes if patient status (dizziness, low BP or pulse as per prior directions). Thank you Vital signs were sent after propranolol adjustment made on April 03. Propranolol is 60 mg 3 times daily. More often heart rate has been under 90. There have been a few excursions in the mid 90s and once up to 106. More recent blood pressures have been in the lower normal range, occasionally systolic is in the upper 90s. More often blood pressure is low 100s over 70s-80s Would not recommend adjustments at present. Has been given prior instructions to notify office if patient is having significant fatigue, dizziness or symptoms of low blood pressure or if heart rate is frequently above 90. documented in this encounter [facility] 04-18-2024 Note Vital signs were sen t after propranolol adjustment made on April 03. Propranolol is 60 mg 3 times daily. More often heart rate has been under 90. There have been a few excursions in the mid 90s and once up to 106. More recent blood pressures have been in the lower normal range, occasionally systolic is in the upper 90s. More often blood pressure is low 100s over 70s-80s Would not recommend adjustments at present. Has been given prior instructions to notify office if patient is having significant fatigue, dizziness or symptoms of low blood pressure or if heart rate is frequently above 90. AUTHENTICATED BY LEOPOLDO HOSKINS, ON 04/18/2024 15:45:19 [facility] 04-18-2024 History of Present illness Narrative Vital signs were sent after propranolol adjustment made on April 03. Propranolol is 60 mg 3 times daily. More often heart rate has been under 90. There have been a few excursions in the mid 90s and once up to 106. More recent blood pressures have been in the lower normal range, occasionally systolic is in the upper 90s. More often blood pressure is low 100s over 70s-80s Would not recommend adjustments at present. Has been given prior instructions to notify office if patient is having significant fatigue, dizziness or symptoms of low blood pressure or if heart rate is frequently above 90. documented in this encounter [facility] 04-01-2024 Instructions Charles Sequeira MD - 04/01/2024 2:48 PM EST Keep on same methimazole dose 10 mg alternating with 15 mg every other day (average daily dose 12.5 mg). Labs on the way out, and based on results we may need to change dose. I printed for you standing orders if needed between the visits. Methimazole precautions: This medicine is usually well tolerated, but you need to be aware of possible side effects including decrease in blood cell counts, liver dysfunction, joint/muscle aches, rash, nausea, altered taste sensation. Let me know if you develop sore throat, fever, any infection, abdominal pain/bloating, loss of appetite, nausea, vomiting, change in urine/stool color, yellowish eye discoloration (if, so you will also need to hold methimazole transiently till we make sure your labs are good). Let me know if you develop any concerning side effects otherwise. Increase the dose of propranolol to 60 mg 3 times daily as long as blood pressure is >90/60 and no dizziness. Goal heart rate at rest is <90 (take vitals at least 1 hr after caffeine or smoking). Let us know if heart rate is still >90, or blood pressure getting below 90/60 or there is dizziness. I highly recommend quitting smoking. In case of eye changes like double vision, dry/red eyes, bulging eyes, you will need to discuss that with the eye doctor. If heart rate is still high despite controlling your thyroid functions, then you may need to see a heart doctor. documented in this encounter [facility] 04-01-2024 History of Present illness Narrative Images from the original note were not included. Reason for visit/chief complaint: Graves' disease Date: 04/01/2024 Referring Provider: No ref. provider found Primary Care Provider: Amadeo Silver MD HPI: Interval hx/subjective: 04/01/2024: MMI dose was decreased from 15 to 10 mg daily around 02/23, then recommended to be increased to 10 mg alternating with 15 mg every other day (average daily dose would be 12.5 mg) in early 03/2024 (03/21-)as TSH was going down with high FT4/FT3. Takes propranolol 40 mg tid. Medication list includes Depakote, olanzapine. No fatigue, palpitations, tremors, heat/cold intolerance. Bms are normal. No hair loss/dry skin, weight has been stable. No abdominal pain, nausea/vomiting. No side effects from MMI. No bulging eyes/double vision, red/dry eyes. He smokes. No neck lumps/pain or compressive symptoms. Only recent vitals were sent; HR 105, BP 120/83 01/30/2024: He has been on MMI; dose was changed to 15 mg daily (starting 01/14), has been taking propranolol 60 mg tid. No side effects from MMI. No dizziness. No fatigue, palpitations, tremors, heat/cold intolerance. Bms are normal. No dry skin/hair loss. Says weight is stable, but per chart he has been gaining some weight. Says mood is more stable. He smokes. No double vision, bulging eyes, red/dry eyes. No neck lumps/pain or compressive symptoms. Medication list includes Depakote, haloperidol PRN, olanzapine. 12/12/23: He is currently residing at [facility] in [facility], ph [phone]--he has been there since discharge from the hospital. Most recent labs: 12/05/23 : TSH 0.4 (0.27-4.2), free T4 1.40 (0.93-1.7), total T3 328.2 (80-200), alkaline phosphatase 283 (40-129), ALT 39 (0-41), AST 75 (0-40), other LFTs unremarkable. (While taking methimazole: 10 mg, propanolol: 60 mg TID). He is currently taking Methimazole 10 mg BID since 12/11/23 and propanolol 60 mg tid since 11/02/23. Mr. Carlton endorses No fatigue, cold intolerance, constipation, dry skin, hair loss, muscle weakness/pain, palpitations, tremors, diarrhea/hyperdefecation, heat intolerance, excessive anxiety/nervousness. He has gained weight--feels appropriate for him. He has No red/dry eyes, bulging eyes, or double vision. He denies dizziness/orthostasis. He denies recent infections/fever/n/v, change in stool color or skin/eye color, no rashed. In regards to mechanical/obstructive symptoms, He endorses No neck lump/swelling, neck pain, dysphagia, choking on food, voice changes, or pressure/choking sensation. VS review from facility records from [place] faxed yesterday: For the past 7-10days: Blood pressure for the past 7 to 10 days has ranged from 94-153/72-100, more often 120s to 130s/80s Pulse for the past 7 to 10 days-82-119, most often in the 80s. 10/31/23: He is currently residing at [facility] in [facility], ph [phone]--he has been there since discharge from the hospital. Labs have been completed outside after hospitalization. 10/01/23 labs TSH remained suppressed with FT4 top of normal, no T3 available. Patient's free T4 on the most recent labs on 10/11/23 was in the upper normal range; no TSH or T3 level available. His vital signs have been relatively stable with HR and BP intermittently elevated but not consistently. He is presently taking methimazole 20 mg 3 times daily and propranolol 80 mg every 8 hours. He denies nausea, vomiting, abdominal pain, change in skin color, rashes, recent fevers or infections. Denies dizziness or shortness of breath or chest pain. Mr. Carlton endorses No fatigue, cold intolerance, constipation, dry skin, hair loss, muscle weakness/pain, palpitations, tremors, diarrhea/hyperdefecation, heat intolerance, excessive anxiety/nervousness. He has gained weight. He has No red/dry eyes, bulging eyes, or double vision. In regards to mechanical/obstructive symptoms, He endorses No neck lump/swelling, neck pain, dysphagia, choking on food, voice changes, or pressure/choking sensation. VS review from facility records: For the past 7 days: blood pressure range: 103-176/56-122, most readings are in the 120s and 130s/78-90s Heart rate range: 75 -110, mostly in the 80s for the past week. No biotin supplements. Risk factors: -Hx of autoimmune diseases: none other than thyroid known -Family hx of thyroid disease/cancer: unknown -Hx of thyroid surgery: no -Hx of high risk/interfering medications: no -Recent URI/: no:/na -Hx of head/neck irradiation: no -Smoking: yes Background: Mr. Carlton is a 23 y.o. male with a history of schizoaffective disorder/severe bipolar mood extremes (mostly flor but also some past episodes of depression with suicidality), paranoid psychosis, hyperthyroidism, and history of illicit substance use who is here for a follow-up visit of Graves' disease. He was initially seen by [facility] endocrinology in October of 2019 during a hospitalization for psychiatric care and was diagnosed with Graves disease at that time. He was started on methimazole in October of 2019. He did show improvement in status taking methimazole but he was lost to follow up after 02/2020 outpatient endocrinology visit. We did not see him again until the recent hospitalization, admitted 08/18/23-09/25/23, for schizoaffective disorder and hyperthyroidism/thyroid storm. He has a history of refusing treatment/medications for psychiatric and thyroid conditions. Labs upon presentation to the hospital on 08/18/23 TSH 0.05, FT4 >7.7, T4 19.8. Patient was treated with methimazole 20 mg 3 times daily, propranolol 80 mg every 6- 8 hours, IV hydrocortisone, SSKI drops during the hospital stay. His labs did gradually improve during the hospitalization but remained hyperthyroid. He did have mild increase in LFTs during the hospital stay. Labs at discharge from hospital: 09/24/2023: AST 21, ALT 28, alkaline phosphatase 215, total bilirubin less than 0.2, TSH 0.03, free T4 1.4, T3 183. He was discharged to a care facility from the hospital on methimazole 20 mg 3 times daily and propranolol 80 mg every 8 hours. Review of Systems: as per HPI Medical History: Past Medical History: Diagnosis Date ADHD Graves disease Danilo's thyroiditis Hypertension Hyperthyroidism 10/20/2019 Hyperthyroidism Hyperthyroidism Schizo affective schizophrenia (HCC) Schizoaffective disorder (HCC) 10/20/2019 Surgical History: History reviewed. No pertinent surgical history. Family History: Family History Family history unknown: Yes Social History: Social History Socioeconomic History Marital status: Single Tobacco Use Smoking status: Every Day Current packs/day: 1.50 Average packs/day: 1.5 packs/day for 5.0 years (7.5 ttl pk-yrs) Types: Cigarettes Smokeless tobacco: Never Vaping Use Vaping status: Never Used Substance and Sexual Activity Alcohol use: Not Currently Comment: anually Drug use: Yes Types: Marijuana Comment: I don't even smoke pot monthly Sexual activity: Not Currently Social Drivers of Health Food Insecurity: No Food Insecurity (08/21/2023) Hunger Vital Sign Worried About Running Out of Food in the Last Year: Never true Ran Out of Food in the Last Year: Never true Transportation Needs: No Transportation Needs (08/21/2023) PRAPARE - Transportation Lack of Transportation (Medical): No Lack of Transportation (Non-Medical): No Housing Stability: Low Risk (08/21/2023) Housing Stability Vital Sign Unable to Pay for Housing in the Last Year: No Number of Places Lived in the Last Year: 0 Unstable Housing in the Last Year: No Allergies: Allergies Allergen Reactions Grass Pollen-Red Top, Standard Other (See Comments) Watery eyes and sniffles Mite Extract Other (See Comments) Watery eyes and sniffles Current Medications: Current Outpatient Medications Medication Sig Dispense Refill divalproex (DEPAKOTE ER) 500 MG 24 hr tablet Take 1 (one) tablet (500 mg total) by mouth 2 (two) times a day . 60 tablet 0 divalproex (DEPAKOTE) 250 MG delayed release (DR) tablet Take 1 (one) tablet (250 mg total) by mouth nightly . 30 tablet 0 haloperidoL (HALDOL) 5 MG tablet Take 1 (one) tablet (5 mg total) by mouth 4 (four) times a day . hydroCHLOROthiazide (HYDRODIURIL) 25 MG tablet Take 1 (one) tablet (25 mg total) by mouth daily . hydrOXYzine (ATARAX) 50 MG tablet Take 1 (one) tablet (50 mg total) by mouth every 6 (six) hours . lisinopriL (PRINIVIL,ZESTRIL) 10 MG tablet Take by mouth daily . LORazepam (ATIVAN) 1 MG tablet Take 1 (one) tablet (1 mg total) by mouth every 6 (six) hours as needed for anxiety . methIMAzole (TAPAZOLE) 10 MG tablet Take 1.5 (one and a half) tablets (15 mg total) by mouth daily . 45 tablet 11 OLANZapine (ZYPREXA) 10 MG tablet Take 1 (one) tablet (10 mg total) by mouth 2 (two) times a day . 60 tablet 0 propranoloL (INDERAL) 60 MG tablet Take 1 (one) tablet (60 mg total) by mouth every 8 (eight) hours . 90 tablet 3 traZODone (DESYREL) 50 MG tablet Take 1 (one) tablet (50 mg total) by mouth nightly as needed for sleep . 30 tablet 0 magnesium hydroxide 400 mg/5 mL Susp Take 30 mL (2,400 mg total) by mouth daily . (Patient not taking: Reported on 04/01/2024 .) paliperidone palmitate (Invega Sustenna) 234 mg/1.5 mL Syrg Inject 1.5 mL (234 mg total) into the shoulder, thigh, or buttocks every 28 days Start: 10/19/23. (Patient not taking: Reported on 04/01/2024) 1.5 mL 0 No current facility-administered medications for this visit. Physical Exam: Vitals: BP 121/86 (BP Location: Right arm, Patient Position: Sitting) Pulse (!) 102 Wt 84.9 kg (187 lb 1.6 oz) BMI 30.20 kg/m , Body mass index is 30.2 kg/m ., Wt Readings from Last 3 Encounters: 12/17/24 84.9 kg (187 lb 1.6 oz) 01/30/24 84.6 kg (186 lb 8 oz) 12/12/23 81.9 kg (180 lb 9.6 oz) General/Constitutional: , well-developed Eyes: no lid retraction (stare), no remarkable proptosis (but R eye may be a bit more prominent), non-icteric, no limitation in eye movement Neck: there is prominent soft thyroid Cardiovascular: regular rhythm Pulmonary/Chest: effort normal Neurological: alert and oriented, DTRs normal upper extremities, minimal tremor outstretched hands Skin: warm Psychiatric: flat affect, sitting in chair during visit and answers questions appropriately, alert and oriented x3 Lab/Imaging Data: Lab Results Component Value Date WBC 8.56 12/12/2023 HGB 14.3 12/12/2023 HCT 43.5 12/12/2023 MCV 89.0 12/12/2023 PLT 237 12/12/2023 Lab Results Component Value Date GLUCOSE 91 08/24/2023 NA 141 08/24/2023 K 4.1 08/24/2023 CL 108 08/24/2023 BUN 13 08/24/2023 CREATININE 0.33 (L) 08/24/2023 Lab Results Component Value Date ALT 31 12/12/2023 AST 21 12/12/2023 ALKPHOS 234 (H) 12/12/2023 BILITOT 0.3 12/12/2023 Lab Results Component Value Date TSH 0.06 (L) 12/12/2023 [id number] 190 (H) 12/12/2023 THYROIDAB 278.1 (H) 10/19/2019 Lab Results Component Value Date CALCIUM 8.7 08/24/2023 PHOS 5.2 (H) 08/24/2023 Lab Results Component Value Date LDLCALC 39 08/18/2023 CHOL 94 (L) 08/18/2023 HDL 44 08/18/2023 TRIG 56 08/18/2023 CHOLHDL 2.1 08/18/2023 Thyroid US 08/27/2023: COMPARISON: None. TECHNIQUE: Thyroid ultrasound utilizing can-scale and color Doppler analysis. FINDINGS: Enlarged, heterogeneous thyroid gland with diffuse increased vascularity. No suspicious thyroid nodules. Right thyroid lobe measures 8.2 x 2.9 x 3.5 cm (43.5 mL). Isthmus measures 0.9 cm in AP dimension. Left thyroid lobe measures 6.7 x 2.8 x 3.2 cm (31.7 mL). IMPRESSION: Enlarged, heterogeneous thyroid gland with diffuse increased vascularity. No suspicious thyroid nodules identified. 05/14/18: TSI 137% (<=122%) 10/19/19: TSI 5 08/18/23 TSH 0.05, FT4 <7.7, T4 19.8. Alkaline phosphatase 126, AST 25, ALT 47, total bilirubin 0.3. 08/20/23 TSI 2.9, T3 >651 08/23/23 TRAB 29 09/24/2023: AST 21, ALT 28, alkaline phosphatase 215, total bilirubin less than 0.2, TSH 0.03, free T4 1.4, T3 183 09/25/2023: White blood cell count 7.90, hemoglobin 13.3, hematocrit 40.4, neutrophils 41.9, absolute neutrophils 3.32. 10/11/2023: Free T4 1.54 (0.93-1.7), no T3 available. White blood cell count 7.26, neutrophils 2.55 and percentage 35.1- Albumin 4.3, alkaline phosphatase 254 (40-129) albumin 4 ALT 27, AST cannot be analyzed due to hemolysis, total and direct bilirubin within normal limits. 10/01/2023: TSH 0.03 (0.27-4.2), free T4 1.70 (0.93-1.7), white blood cell count 7.22, alkaline phosphatase 213 (40-129), T3 uptake 34 (22-35). 10/11/2023: Free T4 1.54 (0.93-1.7), no T3 available. White blood cell count /neutrophils WNL, Albumin 4.3, alkaline phosphatase 254 (40-129) albumin 4, ALT 27, AST cannot be analyzed due to hemolysis, total and direct bilirubin within normal limits. 10/31/2023:TSH 0.04, free T4 0.3 (0.7-1.7), T3 73 (72-170), alkaline phosphatase 250 (40-140), other LFTs within normal limits, CBC and differential unremarkable. (Methimazole 20 mg 3 times daily, propranolol 80 mg every 8 hours) 11/19/2023: TSH 0.41 (0.27-4.2), free T4 less than 0.11 (0.93-1.7). No T3 done as ordered. Alkaline phosphatase 270 (40-129), other LFTs unremarkable. [T3 uptake was drawn instead of the ordered T3.] (Methimazole 10 mg TID and propanolol 60 mg TID). 11/27/2023: T3 109 (97-169) 12/05/23 labs: TSH 0.4 (0.27-4.2), free T4 1.40 (0.93-1.7), total T3 328.2 (80-200), alkaline phosphatase 283 (40-129), ALT 39 (0-41), AST 75 (0-40), other LFTs unremarkable. (methimazole: 10 mg daily, propanolol: 60 mg TID) 12/12/2023: TSH 0.06, free T4 2.2, T3 190 (72-170), white blood cell count 8.56, monocytes mildly elevated other differential within normal limits, alkaline phosphatase 234 (40-140), AST 21, ALT 31. (Had only anticipated LFT being done but lab ran TFTs as well). 01/07/24: TSH 0.16 (0.27-4.2), FT4 0.37 (0.93-1.7), T3 86.4 (80-200), FT3 2.47 (2-4.4), ALP 185 (40-129), other LFTs WNL. 01/30/2024: TSH 5.94, FT4 0.5, T3 87 02/13/2024: TSH 6.69 (high), FT4 0.45 (low, range 0.93-1.7), FT3 2.74 (range 2-4.4), T3 104 (normal, range 80-200), WBC 7.23, ANC 1.79, immature granulocytes 0.09, Hb 13.4, PLT 217, LFTs normal except for ALP 166 (improving, range 40-129), Ca 8.7, alb 4.3, cr 0.96, eGFR >60 03/17/2024: TSH 0.04, FT4 1.85 (high, range <1.7), FT3 4.51 (high, range <4.4), T3 151 (normal) Assessment and plan: Mr. Carlton is a 23 y.o. male with a history of schizoaffective disorder/severe bipolar mood extremes (mostly flor but also some past episodes of depression with suicidality), paranoid psychosis, hyperthyroidism, and history of illicit substance use. He is here for a follow-up visit of Graves' disease/hyperthyroidism. Graves' disease was diagnosed in October 2019 and he was started on methimazole. The patient was lost to follow-up soon after treatment was started. He was not seen again until he was recently admitted to the hospital 08/18/23-09/25/23 for schizoaffective disorder and thyroid storm. During the hospitalization he was treated with methimazole, Propranolol, IV hydrocortisone and SSKI drops. 10/31/2023: He was discharged from the hospital on methimazole 20 mg 3 times daily and propranolol 80 mg 3 times daily. He continues on the same regimen. He is living in a healthcare facility and thus has been getting his medications regularly. He reports he has no symptoms of hyperthyroidism, he denies any complaints. He has a minimal tremor of outstretched hands, he has overall gained a good bit of weight since prior to initiation of methimazole during the hospital stay and he has gained approximately 6 pounds since discharged from the hospital. His vital signs have been relatively stable with heart rate recently most often in the 80s and blood pressure readings more often controlled and sometimes mildly elevated. His most recent TFTs on October 11, 2023 have shown improvement with his free T4 into the upper normal range. His last TSH on October 01, 2023 remained suppressed. Patient's liver function tests have been mildly elevated, specifically the alkaline phosphatase. This may be related to hyperthyroidism itself with increased bone turnover. Plan: -Repeat TSH, free T4, T3, hepatic function panel, CBC today. -At present continue methimazole 20 mg 3 times daily. Anticipate will reduce methimazole after labs reviewed. -Continue propranolol 80 mg 3 times daily. Will continue to monitor vital signs closely, twice daily, as would expect we will need may need to reduce the propranolol soon. -Will continue to monitor liver function tests and can tolerate levels that are less than 3 times the upper limit of normal with close monitoring. Will send orders to the facility once we have lab results back. Facility: [facility], ph [phone] Patient notes he will likely be there a while longer. 12/12/2023: Labs have been done between visits with medication adjustments. 11/19/23 labs showed FT4 less than 0.11 with TSH in the low normal range (no T3 was done as ordered at that time)--methimazole was reduced from 10 mg tid to 10 mg daily. T3 was done 11/27/23--low normal range. Most recent labs: 12/05/23 : TSH 0.4 (0.27-4.2), free T4 1.40 (0.93-1.7), total T3 328.2 (80-200), alkaline phosphatase 283 (40-129), ALT 39 (0-41), AST 75 (0-40), other LFTs unremarkable. (While taking methimazole: 10 mg, propanolol: 60 mg TID). Improvement noted in labs with normalization of FT4 and TSH and T3 elevated; methimazole was increased to 10 mg BID on 12/11/23. He is currently taking Methimazole 10 mg BID since 12/11/23 and propanolol 60 mg tid since 11/02/23. The methimazole was increased just yesterday. He denies symptoms of hyperthyroidism/hypothyroidism; denies adverse medication side effects. His LFTs remain mildly elevated with AST elevation on labs last week. Alk phos elevation stable. He continues with heart rate occ elevated and more often in 80s/some 90s and BP more often slightly elevated. Would have expected to need to further decrease propanolol by this point. He denies pre-existing HTN. Plan: Continue plan from 12/11/23 TC with facility, continue methimazole 10 mg BID and current propanolol 60 mg TID. -repeat hepatic function panel today to continue trending. Facility will not need to collect later this week as planned yesterday. -TSH, T3, FT3, FT4 and hepatic function panel to be done in ~4 weeks, facility already has these orders. And to send vitals/current med list with lab results once available. Patient advised of possible adverse medication side effects to report and to notify me if develops such. And will continue to monitor vitals daily. Patient to report dizziness, increased fatigue if occurring as well as change in symptom that may indicate thyroid level abnormality in the meantime. Instructions provided to patient and facility staff accompanying patient today Post visit 12/12/23: Hepatic function received and alkaline phosphatase stable with improved AST noted. Lab rate and TFTs also, had only intended for hepatic function panel today but prior order was evidently in the system. Trend in TFTs since last week supports the need for the increase methimazole dose. 01/30/2024: Labs on 01/07/2024 showed improvement in LFTs with ALT/AST in normal range and decrease in ALP (still above normal though but <1.5 times ULN this time). TFTs showed low FT4. Low normal T3 and mildly low TSH 0.16 this time (compared to lower TSH 0.06 in 11/2023). MMI dose was advised to be decreased from 10 mg bid to 15 mg daily in late 12/2023, and to continue propranolol 60 mg tid. Will repeat labs today since patient is here, but that will be only 2 weeks after the last change, but will give an idea how labs are trending. Counseled him on smoking cessation and effect on eyes in [place]. Counseled on MMI precautions. Printed standing orders for repeat labs as needed down the road. BP and HR seem to be ok on current propranolol, but will consider decreasing the dose if TFTs are stable within normal range. 04/01/2024: MMI dose was decreased from 15 to 10 mg daily around 02/23, then recommended to be increased to 10 mg alternating with 15 mg every other day (average daily dose would be 12.5 mg) in early 03/2024 as TSH was going down with high FT4/FT3. Will get labs repeated today ~10 days after last dose change since he seems to be very sensitive to dose changes. Increased propranolol dose to 60 mg tid; goal resting HR <90 as long as BP is fine; provided them with instructions in that regard. He may need to see cardiology if there is still tachycardia is persistent despite normal TFTs (not yet so far). Will repeat LFTs (had high but improving ALP in last labs in 01/2024) and CBC with labs today (had some immature granulocytes in last CBC and he was recommended to f/u with PCP). Counseled on smoking cessation and to see the eye doctor in case of eye changes. Return in about 6 weeks (around 05/13/2024) for Graves f/u. Time spent reviewing chart, during the encounter, putting orders and coordinating care on the encounter day is 33 minutes. Charles Sequeira MD Endocrinology documented in this encounter [facility] 04-01-2024 Note Reason for visit/chi ef complaint: Graves' disease Date: 04/01/2024 Referring Provider: No ref. provider found Primary Care Provider: Amadeo Silver MD HPI: Interval hx/subjective: 04/01/2024: MMI dose was decreased from 15 to 10 mg daily around 02/23, then recommended to be increased to 10 mg alternating with 15 mg every other day (average daily dose would be 12.5 mg) in early 03/2024 (03/21-)as TSH was going down with high FT4/FT3. Takes propranolol 40 mg tid. Medication list includes Depakote, olanzapine. No fatigue, palpitations, tremors, heat/cold intolerance. Bms are normal. No hair loss/dry skin, weight has been stable. No abdominal pain, nausea/vomiting. No side effects from MMI. No bulging eyes/double vision, red/dry eyes. He smokes. No neck lumps/pain or compressive symptoms. Only recent vitals were sent; HR 105, BP 120/83 01/30/2024: He has been on MMI; dose was changed to 15 mg daily (starting 01/14), has been taking propranolol 60 mg tid. No side effects from MMI. No dizziness. No fatigue, palpitations, tremors, heat/cold intolerance. Bms are normal. No dry skin/hair loss. Says weight is stable, but per chart he has been gaining some weight. Says mood is more stable. He smokes. No double vision, bulging eyes, red/dry eyes. No neck lumps/pain or compressive symptoms. Medication list includes Depakote, haloperidol PRN, olanzapine. 12/12/23: He is currently residing at [facility] in [facility], ph [phone]--he has been there since discharge from the hospital. Most recent labs: 12/05/23 : TSH 0.4 (0.27-4.2), free T4 1.40 (0.93-1.7), total T3 328.2 (80-200), alkaline phosphatase 283 (40-129), ALT 39 (0-41), AST 75 (0-40), other LFTs unremarkable. (While taking methimazole: 10 mg, propanolol: 60 mg TID). He is currently taking Methimazole 10 mg BID since 12/11/23 and propanolol 60 mg tid since 11/02/23. Mr. Carlton endorses No fatigue, cold intolerance, constipation, dry skin, hair loss, muscle weakness/pain, palpitations, tremors, diarrhea/hyperdefecation, heat intolerance, excessive anxiety/nervousness. He has gained weight--feels appropriate for him. He has No red/dry eyes, bulging eyes, or double vision. He denies dizziness/orthostasis. He denies recent infections/fever/n/v, change in stool color or skin/eye color, no rashed. In regards to mechanical/obstructive symptoms, He endorses No neck lump/swelling, neck pain, dysphagia, choking on food, voice changes, or pressure/choking sensation. VS review from facility records from info faxed yesterday: For the past 7-10days: Blood pressure for the past 7 to 10 days has ranged from 94-153/72-100, more often 120s to 130s/80s Pulse for the past 7 to 10 days-82-119, most often in the 80s. 10/31/23: He is currently residing at [facility] in [facility], ph [phone]--he has been there since discharge from the hospital. Labs have been completed outside after hospitalization. 10/01/23 labs TSH remained suppressed with FT4 top of normal, no T3 available. Patient's free T4 on the most recent labs on 10/11/23 was in the upper normal range; no TSH or T3 level available. His vital signs have been relatively stable with HR and BP intermittently elevated but not consistently. He is presently taking methimazole 20 mg 3 times daily and propranolol 80 mg every 8 hours. He denies nausea, vomiting, abdominal pain, change in skin color, rashes, recent fevers or infections. Denies dizziness or shortness of breath or chest pain. Mr. Carlton endorses No fatigue, cold intolerance, constipation, dry skin, hair loss, muscle weakness/pain, palpitations, tremors, diarrhea/hyperdefecation, heat intolerance, excessive anxiety/nervousness. He has gained weight. He has No red/dry eyes, bulging eyes, or double vision. In regards to mechanical/obstructive symptoms, He endorses No neck lump/swelling, neck pain, dysphagia, choking on food, voice changes, or pressure/choking sensation. VS review from facility records: For the past 7 days: blood pressure range: 103-176/56-122, most readings are in the 120s and 130s/78-90s Heart rate range: 75 -110, mostly in the 80s for the past week. No biotin supplements. Risk factors: -Hx of autoimmune diseases: none other than thyroid known -Family hx of thyroid disease/cancer: unknown -Hx of thyroid surgery: no -Hx of high risk/interfering medications: no -Recent URI/: no:/na -Hx of head/neck irradiation: no -Smoking: yes Background: Mr. Carlton is a 23 y.o. male with a history of schizoaffective disorder/severe bipolar mood extremes (mostly flro but also some past episodes of depression with suicidality), paranoid psychosis, hyperthyroidism, and history of illicit substance use who is here for a follow-up visit of Graves' disease. He was initially seen by [facility] endocrinology in October of 2019 during a hospitalization for psychiatric care and was diagnosed with Graves dise (more content not included)... [facility] 12-12-2023 Instructions Leopoldo Hoskins CNP - 12/12/2023 9:12 AM EDT Facility does not need to collect hepatic function panel that was to be done within the week. This was done today at the visit. Please continue current medications and request for thyroid tests (-In ~4 weeks, hepatic function panel, TSH, Free T4, Total T3 and Free T3 ) per orders to facility on 12/11/23. documented in this encounter [facility] 12-12-2023 History of Present illness Narrative Images from the original note were not included. Reason for visit/chief complaint: Graves' disease Date: 12/12/2023 Referring Provider: No ref. provider found Primary Care Provider: Amadeo Silver MD HPI: Mr. Carlton is a 23 y.o. male with a history of schizoaffective disorder/severe bipolar mood extremes (mostly flor but also some past episodes of depression with suicidality), paranoid psychosis, hyperthyroidism, and history of illicit substance use who is here for a follow-up visit of Graves' disease. He was initially seen by [facility] endocrinology in October of 2019 during a hospitalization for psychiatric care and was diagnosed with Graves disease at that time. He was started on methimazole in October of 2019. He did show improvement in status taking methimazole but he was lost to follow up after 02/2020 outpatient endocrinology visit. We did not see him again until the recent hospitalization, admitted 08/18/23-09/25/23, for schizoaffective disorder and hyperthyroidism/thyroid storm. He has a history of refusing treatment/medications for psychiatric and thyroid conditions. Labs upon presentation to the hospital on 08/18/23 TSH 0.05, FT4 >7.7, T4 19.8. Patient was treated with methimazole 20 mg 3 times daily, propranolol 80 mg every 6- 8 hours, IV hydrocortisone, SSKI drops during the hospital stay. His labs did gradually improve during the hospitalization but remained hyperthyroid. He did have mild increase in LFTs during the hospital stay. Labs at discharge from hospital: 09/24/2023: AST 21, ALT 28, alkaline phosphatase 215, total bilirubin less than 0.2, TSH 0.03, free T4 1.4, T3 183. He was discharged to a care facility from the hospital on methimazole 20 mg 3 times daily and propranolol 80 mg every 8 hours. 12/12/23: He is currently residing at [facility] in [facility], ph [phone]--he has been there since discharge from the hospital. Most recent labs: 12/05/23 : TSH 0.4 (0.27-4.2), free T4 1.40 (0.93-1.7), total T3 328.2 (80-200), alkaline phosphatase 283 (40-129), ALT 39 (0-41), AST 75 (0-40), other LFTs unremarkable. (While taking methimazole: 10 mg, propanolol: 60 mg TID). He is currently taking Methimazole 10 mg BID since 12/11/23 and propanolol 60 mg tid since 11/02/23. Mr. Carlton endorses No fatigue, cold intolerance, constipation, dry skin, hair loss, muscle weakness/pain, palpitations, tremors, diarrhea/hyperdefecation, heat intolerance, excessive anxiety/nervousness. He has gained weight--feels appropriate for him. He has No red/dry eyes, bulging eyes, or double vision. He denies dizziness/orthostasis. He denies recent infections/fever/n/v, change in stool color or skin/eye color, no rashed. In regards to mechanical/obstructive symptoms, He endorses No neck lump/swelling, neck pain, dysphagia, choking on food, voice changes, or pressure/choking sensation. VS review from facility records from info faxed yesterday: For the past 7-10days: Blood pressure for the past 7 to 10 days has ranged from 94-153/72-100, more often 120s to 130s/80s Pulse for the past 7 to 10 days-82-119, most often in the 80s. 10/31/23: He is currently residing at [facility] in [facility], ph [phone]--he has been there since discharge from the hospital. Labs have been completed outside after hospitalization. 10/01/23 labs TSH remained suppressed with FT4 top of normal, no T3 available. Patient's free T4 on the most recent labs on 10/11/23 was in the upper normal range; no TSH or T3 level available. His vital signs have been relatively stable with HR and BP intermittently elevated but not consistently. He is presently taking methimazole 20 mg 3 times daily and propranolol 80 mg every 8 hours. He denies nausea, vomiting, abdominal pain, change in skin color, rashes, recent fevers or infections. Denies dizziness or shortness of breath or chest pain. Mr. Carlton endorses No fatigue, cold intolerance, constipation, dry skin, hair loss, muscle weakness/pain, palpitations, tremors, diarrhea/hyperdefecation, heat intolerance, excessive anxiety/nervousness. He has gained weight. He has No red/dry eyes, bulging eyes, or double vision. In regards to mechanical/obstructive symptoms, He endorses No neck lump/swelling, neck pain, dysphagia, choking on food, voice changes, or pressure/choking sensation. VS review from facility records: For the past 7 days: blood pressure range: 103-176/56-122, most readings are in the 120s and 130s/78-90s Heart rate range: 75 -110, mostly in the 80s for the past week. No biotin supplements. Risk factors: -Hx of autoimmune diseases: none other than thyroid known -Family hx of thyroid disease/cancer: unknown -Hx of thyroid surgery: no -Hx of high risk/interfering medications: no -Recent URI/: no:/na -Hx of head/neck irradiation: no -Smoking: yes Review of Systems: as per HPI, otherwise negative Medical History: Past Medical History: Diagnosis Date ADHD Graves disease Danilo's thyroiditis Hypertension Hyperthyroidism 10/20/2019 Hyperthyroidism Hyperthyroidism Schizo affective schizophrenia (HCC) Schizoaffective disorder (HCC) 10/20/2019 Surgical History: No past surgical history on file. Family History: Family History Family history unknown: Yes Social History: Social History Socioeconomic History Marital status: Single Tobacco Use Smoking status: Every Day Current packs/day: 1.50 Average packs/day: 1.5 packs/day for 5.0 years (7.5 ttl pk-yrs) Types: Cigarettes Smokeless tobacco: Never Vaping Use Vaping status: Never Used Substance and Sexual Activity Alcohol use: Not Currently Comment: anually Drug use: Yes Types: Marijuana Comment: I don't even smoke pot monthly Sexual activity: Not Currently Social Determinants of Health Food Insecurity: No Food Insecurity (08/21/2023) Hunger Vital Sign Worried About Running Out of Food in the Last Year: Never true Ran Out of Food in the Last Year: Never true Transportation Needs: No Transportation Needs (08/21/2023) PRAPARE - Transportation Lack of Transportation (Medical): No Lack of Transportation (Non-Medical): No Housing Stability: Low Risk (08/21/2023) Housing Stability Vital Sign Unable to Pay for Housing in the Last Year: No Number of Places Lived in the Last Year: 0 Unstable Housing in the Last Year: No Allergies: Allergies Allergen Reactions Grass Pollen-Red Top, Standard Other (See Comments) Watery eyes and sniffles Mite Extract Other (See Comments) Watery eyes and sniffles Current Medications: Current Outpatient Medications Medication Sig Dispense Refill divalproex (DEPAKOTE ER) 500 MG 24 hr tablet Take 1 (one) tablet (500 mg total) by mouth 2 (two) times a day . 60 tablet 0 divalproex (DEPAKOTE) 250 MG delayed release (DR) tablet Take 1 (one) tablet (250 mg total) by mouth nightly . 30 tablet 0 LORazepam (ATIVAN) 1 MG tablet Take 1 (one) tablet (1 mg total) by mouth every 6 (six) hours as needed for anxiety . methIMAzole (TAPAZOLE) 10 MG tablet Take 1 (one) tablet (10 mg total) by mouth 2 (two) times a day . 60 tablet 11 OLANZapine (ZYPREXA) 10 MG tablet Take 1 (one) tablet (10 mg total) by mouth 2 (two) times a day . 60 tablet 0 propranoloL (INDERAL) 60 MG tablet Take 1 (one) tablet (60 mg total) by mouth every 8 (eight) hours . 90 tablet 3 traZODone (DESYREL) 50 MG tablet Take 1 (one) tablet (50 mg total) by mouth nightly as needed for sleep . 30 tablet 0 paliperidone palmitate (Invega Sustenna) 234 mg/1.5 mL Syrg Inject 1.5 mL (234 mg total) into the shoulder, thigh, or buttocks every 28 days Start: 10/19/23. (Patient not taking: Reported on 12/12/2023 .) 1.5 mL 0 No current facility-administered medications for this visit. Physical Exam: Vitals: Wt 81.9 kg (180 lb 9.6 oz) BMI 29.15 kg/m , Body mass index is 29.15 kg/m ., Wt Readings from Last 3 Encounters: 12/12/23 81.9 kg (180 lb 9.6 oz) 10/31/23 80.3 kg (177 lb 1.6 oz) 09/19/23 77.9 kg (171 lb 12.8 oz) General/Constitutional: , well-developed Head: atrautmatic, no facial lesions observed Mouth/Throat: MM moist Eyes: no lid retraction (stare), no proptosis, no lid lag, non-icteric, no limitation in eye movement. Neck: normal range of motion. thyromegaly present, no pain Cardiovascular: normal rate, regular rhythm, normal heart sounds- no edema. Pulmonary/Chest: effort normal , no respiratory distress Musculoskeletal: amb, normal muscle mass and strength Neurological: alert and oriented, no focal deficits, DTRs normal upper extremities, minimal tremor outstretched hands Skin: warm anddry , no rash noted Psychiatric: flat affect, sitting in chair during visit and answers questions appropriately Lab/Imaging Data: Lab Results Component Value Date WBC 9.55 10/31/2023 HGB 14.6 10/31/2023 HCT 44.7 10/31/2023 MCV 91.4 10/31/2023 PLT 247 10/31/2023 Lab Results Component Value Date GLUCOSE 91 08/24/2023 NA 141 08/24/2023 K 4.1 08/24/2023 CL 108 08/24/2023 BUN 13 08/24/2023 CREATININE 0.33 (L) 08/24/2023 Lab Results Component Value Date ALT 17 10/31/2023 AST 21 10/31/2023 ALKPHOS 270 (H) 11/16/2023 BILITOT 0.2 11/16/2023 Lab Results Component Value Date TSH 0.41 11/16/2023 G2OTBDJ 73 10/31/2023 THYROIDAB 278.1 (H) 10/19/2019 Lab Results Component Value Date CALCIUM 8.7 08/24/2023 PHOS 5.2 (H) 08/24/2023 Lab Results Component Value Date LDLCALC 39 08/18/2023 CHOL 94 (L) 08/18/2023 HDL 44 08/18/2023 TRIG 56 08/18/2023 CHOLHDL 2.1 08/18/2023 05/14/18: TSI 137% (<=122%) 10/19/19: TSI 5 08/18/23 TSH 0.05, FT4 <7.7, T4 19.8. Alkaline phosphatase 126, AST 25, ALT 47, total bilirubin 0.3. 08/20/23 TSI 2.9, T3 >651 08/23/23 TRAB 29 09/24/2023: AST 21, ALT 28, alkaline phosphatase 215, total bilirubin less than 0.2, TSH 0.03, free T4 1.4, T3 183 09/25/2023: White blood cell count 7.90, hemoglobin 13.3, hematocrit 40.4, neutrophils 41.9, absolute neutrophils 3.32. 10/11/2023: Free T4 1.54 (0.93-1.7), no T3 available. White blood cell count 7.26, neutrophils 2.55 and percentage 35.1- Albumin 4.3, alkaline phosphatase 254 (40-129) albumin 4 ALT 27, AST cannot be analyzed due to hemolysis, total and direct bilirubin within normal limits. 10/01/2023: TSH 0.03 (0.27-4.2), free T4 1.70 (0.93-1.7), white blood cell count 7.22, alkaline phosphatase 213 (40-129), T3 uptake 34 (22-35). 10/11/2023: Free T4 1.54 (0.93-1.7), no T3 available. White blood cell count /neutrophils WNL, Albumin 4.3, alkaline phosphatase 254 (40-129) albumin 4, ALT 27, AST cannot be analyzed due to hemolysis, total and direct bilirubin within normal limits. 10/31/2023:TSH 0.04, free T4 0.3 (0.7-1.7), T3 73 (72-170), alkaline phosphatase 250 (40-140), other LFTs within normal limits, CBC and differential unremarkable. (Methimazole 20 mg 3 times daily, propranolol 80 mg every 8 hours) 11/19/2023: TSH 0.41 (0.27-4.2), free T4 less than 0.11 (0.93-1.7). No T3 done as ordered. Alkaline phosphatase 270 (40-129), other LFTs unremarkable. [T3 uptake was drawn instead of the ordered T3.] (Methimazole 10 mg TID and propanolol 60 mg TID). 11/27/2023: T3 109 (97-169) 12/05/23 labs: TSH 0.4 (0.27-4.2), free T4 1.40 (0.93-1.7), total T3 328.2 (80-200), alkaline phosphatase 283 (40-129), ALT 39 (0-41), AST 75 (0-40), other LFTs unremarkable. (methimazole: 10 mg daily, propanolol: 60 mg TID) Assessment and plan: Mr. Carlton is a 23 y.o. male with a history of schizoaffective disorder/severe bipolar mood extremes (mostly flor but also some past episodes of depression with suicidality), paranoid psychosis, hyperthyroidism, and history of illicit substance use. He is here for a follow-up visit of Graves' disease/hyperthyroidism. Graves' disease was diagnosed in October 2019 and he was started on methimazole. The patient was lost to follow-up soon after treatment was started. He was not seen again until he was recently admitted to the hospital 08/18/23-09/25/23 for schizoaffective disorder and thyroid storm. During the hospitalization he was treated with methimazole, Propranolol, IV hydrocortisone and SSKI drops. 12/11/23: Labs have been done between visits with medication adjustments. 11/19/23 labs showed FT4 less than 0.11 with TSH in the low normal range (no T3 was done as ordered at that time)--methimazole was reduced from 10 mg tid to 10 mg daily. T3 was done 11/27/23--low normal range. Most recent labs: 12/05/23 : TSH 0.4 (0.27-4.2), free T4 1.40 (0.93-1.7), total T3 328.2 (80-200), alkaline phosphatase 283 (40-129), ALT 39 (0-41), AST 75 (0-40), other LFTs unremarkable. (While taking methimazole: 10 mg, propanolol: 60 mg TID). Improvement noted in labs with normalization of FT4 and TSH and T3 elevated; methimazole was increased to 10 mg BID on 12/11/23. He is currently taking Methimazole 10 mg BID since 12/11/23 and propanolol 60 mg tid since 11/02/23. The methimazole was increased just yesterday. He denies symptoms of hyperthyroidism/hypothyroidism; denies adverse medication side effects. His LFTs remain mildly elevated with AST elevation on labs last week. Alk phos elevation stable. He continues with heart rate occ elevated and more often in 80s/some 90s and BP more often slightly elevated. Would have expected to need to further decrease propanolol by this point. He denies pre-existing HTN. Plan: Continue plan from 12/11/23 TC with facility, continue methimazole 10 mg BID and current propanolol 60 mg TID. -repeat hepatic function panel today to continue trending. Facility will not need to collect later this week as planned yesterday. -TSH, T3, FT3, FT4 and hepatic function panel to be done in ~4 weeks, facility already has these orders. And to send vitals/current med list with lab results once available. Patient advised of possible adverse medication side effects to report and to notify me if develops such. And will continue to monitor vitals daily. Patient to report dizziness, increased fatigue if occurring as well as change in symptom that may indicate thyroid level abnormality in the meantime. Instructions provided to patient and facility staff accompanying patient today. 10/31/23: He was discharged from the hospital on methimazole 20 mg 3 times daily and propranolol 80 mg 3 times daily. He continues on the same regimen. He is living in a healthcare facility and thus has been getting his medications regularly. He reports he has no symptoms of hyperthyroidism, he denies any complaints. He has a minimal tremor of outstretched hands, he has overall gained a good bit of weight since prior to initiation of methimazole during the hospital stay and he has gained approximately 6 pounds since discharged from the hospital. His vital signs have been relatively stable with heart rate recently most often in the 80s and blood pressure readings more often controlled and sometimes mildly elevated. His most recent TFTs on October 11, 2023 have shown improvement with his free T4 into the upper normal range. His last TSH on October 01, 2023 remained suppressed. Patient's liver function tests have been mildly elevated, specifically the alkaline phosphatase. This may be related to hyperthyroidism itself with increased bone turnover. Plan: -Repeat TSH, free T4, T3, hepatic function panel, CBC today. -At present continue methimazole 20 mg 3 times daily. Anticipate will reduce methimazole after labs reviewed. -Continue propranolol 80 mg 3 times daily. Will continue to monitor vital signs closely, twice daily, as would expect we will need may need to reduce the propranolol soon. -Will continue to monitor liver function tests and can tolerate levels that are less than 3 times the upper limit of normal with close monitoring. Will send orders to the facility once we have lab results back. Facility: [facility] in [facility], Patient notes he will likely be there a while longer. Return for MD appointment scheduled 01/30/24 . 36 minutes on enc, documentation, chart review, entering orders and patient care. Electronically Signed by: Leopoldo Hoskins CNP 12/12/23 9:06 AM Endocrinology Orders Placed This Encounter Hepatic function panel LORazepam (ATIVAN) 1 MG tablet documented in this encounter [facility] 12-12-2023 History of Present illness Narrative Images from the original note were not included. Reason for visit/chief complaint: Graves' disease Date: 12/12/2023 Referring Provider: No ref. provider found Primary Care Provider: Amadeo Silver MD HPI: Mr. Carlton is a 23 y.o. male with a history of schizoaffective disorder/severe bipolar mood extremes (mostly flor but also some past episodes of depression with suicidality), paranoid psychosis, hyperthyroidism, and history of illicit substance use who is here for a follow-up visit of Graves' disease. He was initially seen by [facility] endocrinology in October of 2019 during a hospitalization for psychiatric care and was diagnosed with Graves disease at that time. He was started on methimazole in October of 2019. He did show improvement in status taking methimazole but he was lost to follow up after 02/2020 outpatient endocrinology visit. We did not see him again until the recent hospitalization, admitted 08/18/23-09/25/23, for schizoaffective disorder and hyperthyroidism/thyroid storm. He has a history of refusing treatment/medications for psychiatric and thyroid conditions. Labs upon presentation to the hospital on 08/18/23 TSH 0.05, FT4 >7.7, T4 19.8. Patient was treated with methimazole 20 mg 3 times daily, propranolol 80 mg every 6- 8 hours, IV hydrocortisone, SSKI drops during the hospital stay. His labs did gradually improve during the hospitalization but remained hyperthyroid. He did have mild increase in LFTs during the hospital stay. Labs at discharge from hospital: 09/24/2023: AST 21, ALT 28, alkaline phosphatase 215, total bilirubin less than 0.2, TSH 0.03, free T4 1.4, T3 183. He was discharged to a care facility from the hospital on methimazole 20 mg 3 times daily and propranolol 80 mg every 8 hours. 12/12/23: He is currently residing at [facility] in [facility], ph [phone]--he has been there since discharge from the hospital. Most recent labs: 12/05/23 : TSH 0.4 (0.27-4.2), free T4 1.40 (0.93-1.7), total T3 328.2 (80-200), alkaline phosphatase 283 (40-129), ALT 39 (0-41), AST 75 (0-40), other LFTs unremarkable. (While taking methimazole: 10 mg, propanolol: 60 mg TID). He is currently taking Methimazole 10 mg BID since 12/11/23 and propanolol 60 mg tid since 11/02/23. Mr. Carlton endorses No fatigue, cold intolerance, constipation, dry skin, hair loss, muscle weakness/pain, palpitations, tremors, diarrhea/hyperdefecation, heat intolerance, excessive anxiety/nervousness. He has gained weight--feels appropriate for him. He has No red/dry eyes, bulging eyes, or double vision. He denies dizziness/orthostasis. He denies recent infections/fever/n/v, change in stool color or skin/eye color, no rashed. In regards to mechanical/obstructive symptoms, He endorses No neck lump/swelling, neck pain, dysphagia, choking on food, voice changes, or pressure/choking sensation. VS review from facility records from info faxed yesterday: For the past 7-10days: Blood pressure for the past 7 to 10 days has ranged from 94-153/72-100, more often 120s to 130s/80s Pulse for the past 7 to 10 days-82-119, most often in the 80s. 10/31/23: He is currently residing at [facility] in [facility], ph [phone]--he has been there since discharge from the hospital. Labs have been completed outside after hospitalization. 10/01/23 labs TSH remained suppressed with FT4 top of normal, no T3 available. Patient's free T4 on the most recent labs on 10/11/23 was in the upper normal range; no TSH or T3 level available. His vital signs have been relatively stable with HR and BP intermittently elevated but not consistently. He is presently taking methimazole 20 mg 3 times daily and propranolol 80 mg every 8 hours. He denies nausea, vomiting, abdominal pain, change in skin color, rashes, recent fevers or infections. Denies dizziness or shortness of breath or chest pain. Mr. Carlton endorses No fatigue, cold intolerance, constipation, dry skin, hair loss, muscle weakness/pain, palpitations, tremors, diarrhea/hyperdefecation, heat intolerance, excessive anxiety/nervousness. He has gained weight. He has No red/dry eyes, bulging eyes, or double vision. In regards to mechanical/obstructive symptoms, He endorses No neck lump/swelling, neck pain, dysphagia, choking on food, voice changes, or pressure/choking sensation. VS review from facility records: For the past 7 days: blood pressure range: 103-176/56-122, most readings are in the 120s and 130s/78-90s Heart rate range: 75 -110, mostly in the 80s for the past week. No biotin supplements. Risk factors: -Hx of autoimmune diseases: none other than thyroid known -Family hx of thyroid disease/cancer: unknown -Hx of thyroid surgery: no -Hx of high risk/interfering medications: no -Recent URI/: no:/na -Hx of head/neck irradiation: no -Smoking: yes Review of Systems: as per HPI, otherwise negative Medical History: Past Medical History: Diagnosis Date ADHD Graves disease Danilo's thyroiditis Hypertension Hyperthyroidism 10/20/2019 Hyperthyroidism Hyperthyroidism Schizo affective schizophrenia (HCC) Schizoaffective disorder (HCC) 10/20/2019 Surgical History: No past surgical history on file. Family History: Family History Family history unknown: Yes Social History: Social History Socioeconomic History Marital status: Single Tobacco Use Smoking status: Every Day Current packs/day: 1.50 Average packs/day: 1.5 packs/day for 5.0 years (7.5 ttl pk-yrs) Types: Cigarettes Smokeless tobacco: Never Vaping Use Vaping status: Never Used Substance and Sexual Activity Alcohol use: Not Currently Comment: anually Drug use: Yes Types: Marijuana Comment: I don't even smoke pot monthly Sexual activity: Not Currently Social Determinants of Health Food Insecurity: No Food Insecurity (08/21/2023) Hunger Vital Sign Worried About Running Out of Food in the Last Year: Never true Ran Out of Food in the Last Year: Never true Transportation Needs: No Transportation Needs (08/21/2023) PRAPARE - Transportation Lack of Transportation (Medical): No Lack of Transportation (Non-Medical): No Housing Stability: Low Risk (08/21/2023) Housing Stability Vital Sign Unable to Pay for Housing in the Last Year: No Number of Places Lived in the Last Year: 0 Unstable Housing in the Last Year: No Allergies: Allergies Allergen Reactions Grass Pollen-Red Top, Standard Other (See Comments) Watery eyes and sniffles Mite Extract Other (See Comments) Watery eyes and sniffles Current Medications: Current Outpatient Medications Medication Sig Dispense Refill divalproex (DEPAKOTE ER) 500 MG 24 hr tablet Take 1 (one) tablet (500 mg total) by mouth 2 (two) times a day . 60 tablet 0 divalproex (DEPAKOTE) 250 MG delayed release (DR) tablet Take 1 (one) tablet (250 mg total) by mouth nightly . 30 tablet 0 LORazepam (ATIVAN) 1 MG tablet Take 1 (one) tablet (1 mg total) by mouth every 6 (six) hours as needed for anxiety . methIMAzole (TAPAZOLE) 10 MG tablet Take 1 (one) tablet (10 mg total) by mouth 2 (two) times a day . 60 tablet 11 OLANZapine (ZYPREXA) 10 MG tablet Take 1 (one) tablet (10 mg total) by mouth 2 (two) times a day . 60 tablet 0 propranoloL (INDERAL) 60 MG tablet Take 1 (one) tablet (60 mg total) by mouth every 8 (eight) hours . 90 tablet 3 traZODone (DESYREL) 50 MG tablet Take 1 (one) tablet (50 mg total) by mouth nightly as needed for sleep . 30 tablet 0 paliperidone palmitate (Invega Sustenna) 234 mg/1.5 mL Syrg Inject 1.5 mL (234 mg total) into the shoulder, thigh, or buttocks every 28 days Start: 10/19/23. (Patient not taking: Reported on 12/12/2023 .) 1.5 mL 0 No current facility-administered medications for this visit. Physical Exam: Vitals: Wt 81.9 kg (180 lb 9.6 oz) BMI 29.15 kg/m , Body mass index is 29.15 kg/m ., Wt Readings from Last 3 Encounters: 12/12/23 81.9 kg (180 lb 9.6 oz) 10/31/23 80.3 kg (177 lb 1.6 oz) 09/19/23 77.9 kg (171 lb 12.8 oz) General/Constitutional: , well-developed Head: atrautmatic, no facial lesions observed Mouth/Throat: MM moist Eyes: no lid retraction (stare), no proptosis, no lid lag, non-icteric, no limitation in eye movement. Neck: normal range of motion. thyromegaly present, no pain Cardiovascular: normal rate, regular rhythm, normal heart sounds- no edema. Pulmonary/Chest: effort normal , no respiratory distress Musculoskeletal: amb, normal muscle mass and strength Neurological: alert and oriented, no focal deficits, DTRs normal upper extremities, minimal tremor outstretched hands Skin: warm anddry , no rash noted Psychiatric: flat affect, sitting in chair during visit and answers questions appropriately Lab/Imaging Data: Lab Results Component Value Date WBC 9.55 10/31/2023 HGB 14.6 10/31/2023 HCT 44.7 10/31/2023 MCV 91.4 10/31/2023 PLT 247 10/31/2023 Lab Results Component Value Date GLUCOSE 91 08/24/2023 NA 141 08/24/2023 K 4.1 08/24/2023 CL 108 08/24/2023 BUN 13 08/24/2023 CREATININE 0.33 (L) 08/24/2023 Lab Results Component Value Date ALT 17 10/31/2023 AST 21 10/31/2023 ALKPHOS 270 (H) 11/16/2023 BILITOT 0.2 11/16/2023 Lab Results Component Value Date TSH 0.41 11/16/2023 F4ADYVG 73 10/31/2023 THYROIDAB 278.1 (H) 10/19/2019 Lab Results Component Value Date CALCIUM 8.7 08/24/2023 PHOS 5.2 (H) 08/24/2023 Lab Results Component Value Date LDLCALC 39 08/18/2023 CHOL 94 (L) 08/18/2023 HDL 44 08/18/2023 TRIG 56 08/18/2023 CHOLHDL 2.1 08/18/2023 05/14/18: TSI 137% (<=122%) 10/19/19: TSI 5 08/18/23 TSH 0.05, FT4 <7.7, T4 19.8. Alkaline phosphatase 126, AST 25, ALT 47, total bilirubin 0.3. 08/20/23 TSI 2.9, T3 >651 08/23/23 TRAB 29 09/24/2023: AST 21, ALT 28, alkaline phosphatase 215, total bilirubin less than 0.2, TSH 0.03, free T4 1.4, T3 183 09/25/2023: White blood cell count 7.90, hemoglobin 13.3, hematocrit 40.4, neutrophils 41.9, absolute neutrophils 3.32. 10/11/2023: Free T4 1.54 (0.93-1.7), no T3 available. White blood cell count 7.26, neutrophils 2.55 and percentage 35.1- Albumin 4.3, alkaline phosphatase 254 (40-129) albumin 4 ALT 27, AST cannot be analyzed due to hemolysis, total and direct bilirubin within normal limits. 10/01/2023: TSH 0.03 (0.27-4.2), free T4 1.70 (0.93-1.7), white blood cell count 7.22, alkaline phosphatase 213 (40-129), T3 uptake 34 (22-35). 10/11/2023: Free T4 1.54 (0.93-1.7), no T3 available. White blood cell count /neutrophils WNL, Albumin 4.3, alkaline phosphatase 254 (40-129) albumin 4, ALT 27, AST cannot be analyzed due to hemolysis, total and direct bilirubin within normal limits. 10/31/2023:TSH 0.04, free T4 0.3 (0.7-1.7), T3 73 (72-170), alkaline phosphatase 250 (40-140), other LFTs within normal limits, CBC and differential unremarkable. (Methimazole 20 mg 3 times daily, propranolol 80 mg every 8 hours) 11/19/2023: TSH 0.41 (0.27-4.2), free T4 less than 0.11 (0.93-1.7). No T3 done as ordered. Alkaline phosphatase 270 (40-129), other LFTs unremarkable. [T3 uptake was drawn instead of the ordered T3.] (Methimazole 10 mg TID and propanolol 60 mg TID). 11/27/2023: T3 109 (97-169) 12/05/23 labs: TSH 0.4 (0.27-4.2), free T4 1.40 (0.93-1.7), total T3 328.2 (80-200), alkaline phosphatase 283 (40-129), ALT 39 (0-41), AST 75 (0-40), other LFTs unremarkable. (methimazole: 10 mg daily, propanolol: 60 mg TID) Rec'd post visit: 12/11/2023: TSH 0.06, free T4 2.2, T3 190 (72-170), white blood cell count 8.56, monocytes mildly elevated other differential within normal limits, alkaline phosphatase 234 (40-140), AST 21, ALT 31. (Had only anticipated LFT being done but lab ran TFTs as well). Assessment and plan: Mr. Carlton is a 23 y.o. male with a history of schizoaffective disorder/severe bipolar mood extremes (mostly flor but also some past episodes of depression with suicidality), paranoid psychosis, hyperthyroidism, and history of illicit substance use. He is here for a follow-up visit of Graves' disease/hyperthyroidism. Graves' disease was diagnosed in October 2019 and he was started on methimazole. The patient was lost to follow-up soon after treatment was started. He was not seen again until he was recently admitted to the hospital 08/18/23-09/25/23 for schizoaffective disorder and thyroid storm. During the hospitalization he was treated with methimazole, Propranolol, IV hydrocortisone and SSKI drops. 12/11/23: Labs have been done between visits with medication adjustments. 11/19/23 labs showed FT4 less than 0.11 with TSH in the low normal range (no T3 was done as ordered at that time)--methimazole was reduced from 10 mg tid to 10 mg daily. T3 was done 11/27/23--low normal range. Most recent labs: 12/05/23 : TSH 0.4 (0.27-4.2), free T4 1.40 (0.93-1.7), total T3 328.2 (80-200), alkaline phosphatase 283 (40-129), ALT 39 (0-41), AST 75 (0-40), other LFTs unremarkable. (While taking methimazole: 10 mg, propanolol: 60 mg TID). Improvement noted in labs with normalization of FT4 and TSH and T3 elevated; methimazole was increased to 10 mg BID on 12/11/23. He is currently taking Methimazole 10 mg BID since 12/11/23 and propanolol 60 mg tid since 11/02/23. The methimazole was increased just yesterday. He denies symptoms of hyperthyroidism/hypothyroidism; denies adverse medication side effects. His LFTs remain mildly elevated with AST elevation on labs last week. Alk phos elevation stable. He continues with heart rate occ elevated and more often in 80s/some 90s and BP more often slightly elevated. Would have expected to need to further decrease propanolol by this point. He denies pre-existing HTN. Plan: Continue plan from 12/11/23 TC with facility, continue methimazole 10 mg BID and current propanolol 60 mg TID. -repeat hepatic function panel today to continue trending. Facility will not need to collect later this week as planned yesterday. -TSH, T3, FT3, FT4 and hepatic function panel to be done in ~4 weeks, facility already has these orders. And to send vitals/current med list with lab results once available. Patient advised of possible adverse medication side effects to report and to notify me if develops such. And will continue to monitor vitals daily. Patient to report dizziness, increased fatigue if occurring as well as change in symptom that may indicate thyroid level abnormality in the meantime. Instructions provided to patient and facility staff accompanying patient today Post visit 12/11/23: Hepatic function received and alkaline phosphatase stable with improved AST noted. Lab rate and TFTs also, had only intended for hepatic function panel today but prior order was evidently in the system. Trend in TFTs since last week supports the need for the increase methimazole dose. 10/31/23: He was discharged from the hospital on methimazole 20 mg 3 times daily and propranolol 80 mg 3 times daily. He continues on the same regimen. He is living in a healthcare facility and thus has been getting his medications regularly. He reports he has no symptoms of hyperthyroidism, he denies any complaints. He has a minimal tremor of outstretched hands, he has overall gained a good bit of weight since prior to initiation of methimazole during the hospital stay and he has gained approximately 6 pounds since discharged from the hospital. His vital signs have been relatively stable with heart rate recently most often in the 80s and blood pressure readings more often controlled and sometimes mildly elevated. His most recent TFTs on October 11, 2023 have shown improvement with his free T4 into the upper normal range. His last TSH on October 01, 2023 remained suppressed. Patient's liver function tests have been mildly elevated, specifically the alkaline phosphatase. This may be related to hyperthyroidism itself with increased bone turnover. Plan: -Repeat TSH, free T4, T3, hepatic function panel, CBC today. -At present continue methimazole 20 mg 3 times daily. Anticipate will reduce methimazole after labs reviewed. -Continue propranolol 80 mg 3 times daily. Will continue to monitor vital signs closely, twice daily, as would expect we will need may need to reduce the propranolol soon. -Will continue to monitor liver function tests and can tolerate levels that are less than 3 times the upper limit of normal with close monitoring. Will send orders to the facility once we have lab results back. Facility: [facility] in [facility], ph [phone] Patient notes he will likely be there a while longer. Return for MD appointment scheduled 01/30/24 . 36 minutes on enc, documentation, chart review, entering orders and patient care. Electronically Signed by: Leopoldo Hoskins CNP 12/12/23 9:06 AM Endocrinology Orders Placed This Encounter Hepatic function panel LORazepam (ATIVAN) 1 MG tablet documented in this encounter [facility] 11-01-2023 History of Present illness Narrative Labs rev'd post visit: see below. Patient is currently taking methimazole 10 mg 2 tablets 3 times daily. His propranolol is 80 mg every 8 hours. Please contact [facility] in [facility], ph [phone] with this information (plan rev/d with Dr. Sequeira): -Medication adjustment: Methimazole 10 mg 1 tablet three times daily -propranolol 60 mg every 8 hours -Please continue taking vital signs twice daily -In 2 weeks, please have a TSH, free T4, T3, hepatic function panel and CBC with differential drawn (I printed lab orders to fax to facility) and faxed to our office. -Please fax vital signs to our office with lab results -contact our office sooner if patient is having heart rate readings in the 60s or below or is hypotensive or complaining of dizziness. Thank you. Facility: [facility] in [facility], ph [phone] Component Latest Ref Rng 10/31/2023 WBC 4.50 - 11.00 K/mcL 9.55 RBCs 4.50 - 5.90 M/mcL 4.89 Hemoglobin 13.5 - 17.5 g/dL 14.6 Hematocrit 41.0 - 53.0 % 44.7 MCV 80.0 - 100.0 fL 91.4 MCH 26.0 - 34.0 pg 29.9 MCHC 31.0 - 37.0 g/dL 32.7 Platelets 150 - 400 K/mcL 247 RDW 11.6 - 14.8 % 12.6 MPV 9.4 - 12.4 fL 10.3 Neutrophils % 52.5 Lymphocytes % 35.3 Monocytes % 9.1 Eosinophils % 2.1 Basophils % 0.7 IG Percent % 0.30 Neutrophils Abs 1.70 - 7.00 K/mcL 5.01 Lymphocytes Abs 0.90 - 4.00 K/mcL 3.37 Monocytes Abs 0.30 - 0.90 K/mcL 0.87 Eosinophils Abs 0.00 - 0.50 K/mcL 0.20 Basophils Abs 0.00 - 0.30 K/mcL 0.07 IG Absolute 0.00 - 0.30 K/mcL 0.03 Nucleated RBC % 0.0 Nucleated RBC Abs 0.00 - 0.00 K/mcL 0.00 Total Protein 6.0 - 8.0 g/dL 7.2 Albumin 3.2 - 5.2 g/dL 4.3 Total Bilirubin 0.0 - 1.3 mg/dL <0.2 Bilirubin, Direct 0.0 - 0.4 mg/dL <0.2 ALK PHOS 40 - 140 U/L 250 (H) AST 0-50 U/L U/L 21 ALT 0-50 U/L U/L 17 TSH 0.27 - 4.20 mcIU/mL 0.04 (L) FREE T4 0.7 - 1.7 ng/dL 0.3 (L) T3 72 - 170 ng/dL 73 documented in this encounter [facility] 10-31-2023 Instructions Leopoldo Hoskins CNP - 10/31/2023 1:46 PM EDT Labs today and will fax future orders once lab results complete. Please continue to take vital signs twice daily And continue current methimazole and propanolol at present. documented in this encounter [facility] 10-31-2023 History of Present illness Narrative Images from the original note were not included. Reason for visit/chief complaint: Graves' disease Date: 10/31/2023 Referring Provider: No ref. provider found Primary Care Provider: No, Physician HPI: Mr. Carlton is a 23 y.o. male with a history of schizoaffective disorder/severe bipolar mood extremes (mostly flor but also some past episodes of depression with suicidality), paranoid psychosis, hyperthyroidism, and history of illicit substance use who is here for a follow-up visit of Graves' disease. He was initially seen by [facility] endocrinology in October of 2019 during a hospitalization for psychiatric care and was diagnosed with Graves disease at that time. He was started on methimazole in October of 2019. He did show improvement in status taking methimazole but he was lost to follow up after 02/2020 outpatient endocrinology visit. We did not see him again until the recent hospitalization, admitted 08/18/23-09/25/23, for schizoaffective disorder and hyperthyroidism/thyroid storm. He has a history of refusing treatment/medications for psychiatric and thyroid conditions. Labs upon presentation to the hospital on 08/18/23 TSH 0.05, FT4 >7.7, T4 19.8. Patient was treated with methimazole 20 mg 3 times daily, propranolol 80 mg every 6- 8 hours, IV hydrocortisone, SSKI drops during the hospital stay. His labs did gradually improve during the hospitalization but remained hyperthyroid. He did have mild increase in LFTs during the hospital stay. Labs at discharge from hospital: 09/24/2023: AST 21, ALT 28, alkaline phosphatase 215, total bilirubin less than 0.2, TSH 0.03, free T4 1.4, T3 183. He was discharged to a care facility from the hospital on methimazole 20 mg 3 times daily and propranolol 80 mg every 8 hours. He is currently residing at [facility] in [facility], --he has been there since discharge from the hospital. Labs have been completed outside after hospitalization. 10/01/23 labs TSH remained suppressed with FT4 top of normal, no T3 available. Patient's free T4 on the most recent labs on 10/11/23 was in the upper normal range; no TSH or T3 level available. His vital signs have been relatively stable with HR and BP intermittently elevated but not consistently. He is presently taking methimazole 20 mg 3 times daily and propranolol 80 mg every 8 hours. He denies nausea, vomiting, abdominal pain, change in skin color, rashes, recent fevers or infections. Denies dizziness or shortness of breath or chest pain. No biotin supplements. Mr. Carlton endorses No fatigue, cold intolerance, constipation, dry skin, hair loss, muscle weakness/pain, palpitations, tremors, diarrhea/hyperdefecation, heat intolerance, excessive anxiety/nervousness. He has gained weight. He has No red/dry eyes, bulging eyes, or double vision. In regards to mechanical/obstructive symptoms, He endorses No neck lump/swelling, neck pain, dysphagia, choking on food, voice changes, or pressure/choking sensation. VS review from facility records: For the past 7 days: blood pressure range: 103-176/56-122, most readings are in the 120s and 130s/78-90s Heart rate range: 75 -110, mostly in the 80s for the past week. Risk factors: -Hx of autoimmune diseases: none other than thyroid known -Family hx of thyroid disease/cancer: unknown -Hx of thyroid surgery: no -Hx of high risk/interfering medications: no -Recent URI/: no:/na -Hx of head/neck irradiation: no -Smoking: yes Review of Systems: as per HPI, otherwise negative Medical History: Past Medical History: Diagnosis Date ADHD Graves disease Danilo's thyroiditis Hypertension Hyperthyroidism 10/20/2019 Hyperthyroidism Hyperthyroidism Schizo affective schizophrenia (HCC) Schizoaffective disorder (HCC) 10/20/2019 Surgical History: No past surgical history on file. Family History: Family History Family history unknown: Yes Social History: Social History Socioeconomic History Marital status: Single Tobacco Use Smoking status: Every Day Current packs/day: 1.50 Average packs/day: 1.5 packs/day for 5.0 years (7.5 ttl pk-yrs) Types: Cigarettes Smokeless tobacco: Never Vaping Use Vaping status: Never Used Substance and Sexual Activity Alcohol use: Not Currently Comment: anually Drug use: Yes Types: Marijuana Comment: I don't even smoke pot monthly Sexual activity: Not Currently Social Determinants of Health Food Insecurity: No Food Insecurity (08/21/2023) Hunger Vital Sign Worried About Running Out of Food in the Last Year: Never true Ran Out of Food in the Last Year: Never true Transportation Needs: No Transportation Needs (08/21/2023) PRAPARE - Transportation Lack of Transportation (Medical): No Lack of Transportation (Non-Medical): No Housing Stability: Low Risk (08/21/2023) Housing Stability Vital Sign Unable to Pay for Housing in the Last Year: No Number of Places Lived in the Last Year: 0 Unstable Housing in the Last Year: No Allergies: Allergies Allergen Reactions Grass Pollen-Red Top, Standard Other (See Comments) Watery eyes and sniffles Mite Extract Other (See Comments) Watery eyes and sniffles Current Medications: Current Outpatient Medications Medication Sig Dispense Refill divalproex (DEPAKOTE ER) 500 MG 24 hr tablet Take 1 (one) tablet (500 mg total) by mouth 2 (two) times a day . 60 tablet 0 divalproex (DEPAKOTE) 250 MG delayed release (DR) tablet Take 1 (one) tablet (250 mg total) by mouth nightly . 30 tablet 0 methIMAzole (TAPAZOLE) 10 MG tablet Take 2 (two) tablets (20 mg total) by mouth 3 (three) times a day . 180 tablet 0 OLANZapine (ZYPREXA) 10 MG tablet Take 1 (one) tablet (10 mg total) by mouth 2 (two) times a day . 60 tablet 0 paliperidone palmitate (Invega Sustenna) 234 mg/1.5 mL Syrg Inject 1.5 mL (234 mg total) into the shoulder, thigh, or buttocks every 28 days Start: 10/19/23. 1.5 mL 0 propranoloL (INDERAL) 80 MG tablet Take 1 (one) tablet (80 mg total) by mouth every 8 (eight) hours . 90 tablet 0 traZODone (DESYREL) 50 MG tablet Take 1 (one) tablet (50 mg total) by mouth nightly as needed for sleep . 30 tablet 0 No current facility-administered medications for this visit. Physical Exam: Vitals: BP 134/86 Pulse 82 Wt 80.3 kg (177 lb 1.6 oz) BMI 28.58 kg/m , Body mass index is 28.58 kg/m ., Wt Readings from Last 3 Encounters: 10/31/23 80.3 kg (177 lb 1.6 oz) 09/19/23 77.9 kg (171 lb 12.8 oz) 08/21/23 54.4 kg (120 lb) General/Constitutional: , well-developed; standing during visit Head: atrautmatic, no facial leasions observed Mouth/Throat: MM moist Eyes: no lid retraction (stare), no proptosis, no lid lag, non-icteric, no limitation in eye movement. Neck: normal range of motion. thyromegaly present, no pain, bruit noted Cardiovascular: normal rate, regular rhythm, normal heart sounds- no edema. Pulmonary/Chest: effort normal and breath sounds normal, no respiratory distress Musculoskeletal: amb, normal muscle mass and strength Neurological: alert and oriented, no focal deficits, DTRs normal upper extremities, mild tremor outstretched hands Skin: warm and moist, no rash noted Psychiatric: flat affect, standing and swaying slightly during visit Lab/Imaging Data: Lab Results Component Value Date WBC 7.90 09/25/2023 HGB 13.3 (L) 09/25/2023 HCT 40.4 (L) 09/25/2023 MCV 89.8 09/25/2023 PLT 244 09/25/2023 Lab Results Component Value Date GLUCOSE 91 08/24/2023 NA 141 08/24/2023 K 4.1 08/24/2023 CL 108 08/24/2023 BUN 13 08/24/2023 CREATININE 0.33 (L) 08/24/2023 Lab Results Component Value Date ALT 28 09/24/2023 AST 21 09/24/2023 ALKPHOS 215 (H) 09/24/2023 BILITOT 0.3 09/24/2023 Lab Results Component Value Date TSH 0.03 (L) 09/24/2023 [id number] 183 (H) 09/24/2023 THYROIDAB 278.1 (H) 10/19/2019 Lab Results Component Value Date CALCIUM 8.7 08/24/2023 PHOS 5.2 (H) 08/24/2023 Lab Results Component Value Date LDLCALC 39 08/18/2023 CHOL 94 (L) 08/18/2023 HDL 44 08/18/2023 TRIG 56 08/18/2023 CHOLHDL 2.1 08/18/2023 05/14/18: TSI 137% (<=122%) 10/19/19: TSI 5 08/18/23 TSH 0.05, FT4 <7.7, T4 19.8. Alkaline phosphatase 126, AST 25, ALT 47, total bilirubin 0.3. 08/20/23 TSI 2.9, T3 >651 08/23/23 TRAB 29 09/24/2023: AST 21, ALT 28, alkaline phosphatase 215, total bilirubin less than 0.2, TSH 0.03, free T4 1.4, T3 183 09/25/2023: White blood cell count 7.90, hemoglobin 13.3, hematocrit 40.4, neutrophils 41.9, absolute neutrophils 3.32. 10/11/2023: Free T4 1.54 (0.93-1.7), no T3 available. White blood cell count 7.26, neutrophils 2.55 and percentage 35.1- Albumin 4.3, alkaline phosphatase 254 (40-129) albumin 4 ALT 27, AST cannot be analyzed due to hemolysis, total and direct bilirubin within normal limits. 10/01/2023: TSH 0.03 (0.27-4.2), free T4 1.70 (0.93-1.7), white blood cell count 7.22, alkaline phosphatase 213 (40-129), T3 uptake 34 (22-35). 10/11/2023: Free T4 1.54 (0.93-1.7), no T3 available. White blood cell count /neutrophils WNL, Albumin 4.3, alkaline phosphatase 254 (40-129) albumin 4, ALT 27, AST cannot be analyzed due to hemolysis, total and direct bilirubin within normal limits. Assessment and plan: Mr. Carlton is a 23 y.o. male with a history of schizoaffective disorder/severe bipolar mood extremes (mostly flor but also some past episodes of depression with suicidality), paranoid psychosis, hyperthyroidism, and history of illicit substance use. He is here for a follow-up visit of Graves' disease/hyperthyroidism. Graves' disease was diagnosed in October 2019 and he was started on methimazole. The patient was lost to follow-up soon after treatment was started. He was not seen again until he was recently admitted to the hospital 08/18/23-09/25/23 for schizoaffective disorder and thyroid storm. During the hospitalization he was treated with methimazole, Propranolol, IV hydrocortisone and SSKI drops. He was discharged from the hospital on methimazole 20 mg 3 times daily and propranolol 80 mg 3 times daily. He continues on the same regimen. He is living in a healthcare facility and thus has been getting his medications regularly. He reports he has no symptoms of hyperthyroidism, he denies any complaints. He has a minimal tremor of outstretched hands, he has overall gained a good bit of weight since prior to initiation of methimazole during the hospital stay and he has gained approximately 6 pounds since discharged from the hospital. His vital signs have been relatively stable with heart rate recently most often in the 80s and blood pressure readings more often controlled and sometimes mildly elevated. His most recent TFTs on October 11, 2023 have shown improvement with his free T4 into the upper normal range. His last TSH on October 01, 2023 remained suppressed. Patient's liver function tests have been mildly elevated, specifically the alkaline phosphatase. This may be related to hyperthyroidism itself with increased bone turnover. Plan: -Repeat TSH, free T4, T3, hepatic function panel, CBC today. -At present continue methimazole 20 mg 3 times daily. Anticipate will reduce methimazole after labs reviewed. -Continue propranolol 80 mg 3 times daily. Will continue to monitor vital signs closely, twice daily, as would expect we will need may need to reduce the propranolol soon. -Will continue to monitor liver function tests and can tolerate levels that are less than 3 times the upper limit of normal with close monitoring. Will send orders to the facility once we have lab results back. Facility: [facility], Patient notes he will likely be there a while longer. Return in about 6 weeks (around 12/12/2023) for 6 weeks SURGICAL GARMENT FITTER and MD 3 months. Electronically Signed by: Leopoldo Hoskins CNP 10/31/23 12:56 PM Endocrinology Orders Placed This Encounter TSH T4, free T3 CBC and Differential Hepatic function panel documented in this encounter [facility] 10-04-2023 History of Present illness Narrative Outside labs received: 10/01/2023: TSH 0.03 (0.27-4.2), free T4 1.70 (0.93-1.7), white blood cell count 7.22, alkaline phosphatase 213 (40-129), ALT and AST not available due to hemolysis, bilirubin within normal limits, T3 uptake 34 (22-35). Vital signs reviewed from September 24 through October 01 with blood pressures most often 1 20-1 140s over 70s to 80s, heart rate range 74-129, for the past week heart rate more often in the 80s-70s--occasionally 90s, rare 100s. Please contact facility, [facility] in [place], fax #: [phone], phone [phone] -Continue current regimen: methimazole 20 mg tid, propanolol 80 mg every 8 hours. -FT4, Total T3, hepatic function panel, and CBC in 1 week (T3 uptake was done with past labs--need total T3, not uptake). Lab orders entered. (Free T4 has increased since 09/24/23 labs). -Send vitals in 1 week with the lab results. documented in this encounter [facility] 08-24-2023 Hospital course Narrative [facility] [place] [facility] Aba Carlton Admitted: 08/20/2023 Discharge Date: 08/24/23 PCP Handoff Recommended Outpatient Testing Follow-up with PCP Follow-up with psychiatry Results Pending At Discharge None Clinical Summary Aba Carlton is a 23 y.o. male patient of , Physician with history of ADHD, Graves, HT presented on 08/18/2023 with Schizo affective disorder. Presented for Psychiatric evaluation and was admitted to psychiatry. Patient subsequently was noted to be in thyroid storm and transferred to ICU for medical management. Thyroid storm TSH 0.05 Elevated T4 and T3 Continue methimazole, propranolol, hydrocortisone and SSKI Daily T3 and T4 Replete electrolyte as needed keep k>4, Phos > 3, Mag >2 Patient Free T4 is improving Decrease the dose of methimazole to 20 mg twice daily, discontinue hydrocortisone and SSKI on on 08/22, increase metoprolol to 80 mg every 6 hours Patient free T4 is improving. Clinically patient is cleared to go back to the psychiatric unit with follow-up with concrete engineering technician. Schizo affective disorder Will be managed by attending Psychiatrist, currently on Depakote 500 mg daily, Invega 6 mg daily Psychiatry on board Tachycardia, improved Will check EKG Heart rate documented in the 140's, likely secondary to thyroid disease Started on Propanolol 40 mg every 6 hours Tobacco use Has nicotine patch Discharge Medications Discharge Medications Unreviewed Medications Details divalproex 500 MG 24 hr tablet Commonly known as: DEPAKOTE ER Take 1 (one) tablet (500 mg total) by mouth 2 (two) times a day . Quantity: 60 tablet hydrocortisone sod succ 100 mg/2 mL injection Commonly known as: SOLU-CORTEF Ask about: Should I take this medication? Infuse 6 mL (300 mg total) into a venous catheter once for 1 dose . Quantity: 6 mL methIMAzole 10 MG tablet Commonly known as: TAPAZOLE Take 2 (two) tablets (20 mg total) by mouth every 6 (six) hours . Quantity: 240 tablet nicotine 21 mg/24 hr Commonly known as: NICODERM CQ Place 1 (one) patch on the skin daily Start: 08/21/23. Quantity: 28 patch paliperidone 6 MG 24 hr tablet Commonly known as: INVEGA Take 1 (one) tablet (6 mg total) by mouth daily Start: 12/19/19. Quantity: 30 tablet Physician(s) Follow Up: No follow-up provider specified. Condition at Discharge: Good Disposition: Inpatient Psych Hospital I reviewed discharge recommendations with the patient in person. Patient instructions, including activity, were given to the patient/family at discharge. On day of discharge I saw Aba Carlton and spent: > 30 minutes on discharge. Completed by: Can Maldonado DO on 08/24/23, 12:49 PM documented in this encounter [facility] 08-24-2023 History of Present illness Narrative Images from the original note were not included. Patient ID: Aba Carlton is a 23 y.o. male 2000 with a history of Graves' disease and schizoaffective disorder, bipolar type. He was initially seen in 2019 during hospitalization for psychiatric treatment and was diagnosed with Graves' disease at that time. He followed with our office briefly in 2019 for Graves' disease and Danilo's thyroiditis following multiple admissions. He presented to [facility] emergency room with complaints of needing medication refilled, diarrhea, vomiting. TFTs on admission TSH 0.05, free T4 greater than 7.7. We were consulted for management of his hyperthyroidism/Graves' disease/thyroid storm during hospitalization. Subjective: Aba Carlton is a 23 y.o. male who I was asked to see in consultation for evaluation of hyperthyroidism. Symptoms include tachycardia, jitteriness, restlessness, diarrhea, behavior problems. Symptoms have been present for unknown time. Initial diagnosis Graves disease was in 2019. Past Medical History: Diagnosis Date ADHD Graves disease Danilo's thyroiditis Hypertension Hyperthyroidism 10/20/2019 Hyperthyroidism Hyperthyroidism Schizo affective schizophrenia (HCC) Schizoaffective disorder (HCC) 10/20/2019 History reviewed. No pertinent surgical history. Family History Family history unknown: Yes Social History Substance and Sexual Activity Drug Use Yes Types: Marijuana Comment: I don't even smoke pot monthly Social History Tobacco Use Smoking Status Every Day Packs/day: 1.00 Years: 5.00 Additional pack years: 0.00 Total pack years: 5.00 Types: Cigarettes Smokeless Tobacco Never Review of Systems: Review of Systems Constitutional: Negative for fatigue. HENT: Negative for trouble swallowing. Gastrointestinal: Negative for diarrhea and vomiting. Psychiatric/Behavioral: Positive for behavioral problems and dysphoric mood. The patient is nervous/anxious and is hyperactive. The following portions of the patient's history were reviewed and updated as appropriate: allergies, current medications, past family history, past medical history, past social history, past surgical history and problem list. Home Medications: Current Facility-Administered Medications Medication Dose Route Frequency Provider Last Rate Last Admin diphenhydrAMINE (BENADRYL) injection 50 mg 50 mg Intravenous Q6H PRN Carey Goldman MD 50 mg at 08/24/23 0036 divalproex (DEPAKOTE ER) 24 hr tablet 500 mg 500 mg Oral Daily Mauro Keys MD 500 mg at 08/24/23 0853 enoxaparin (LOVENOX) syringe 40 mg 40 mg Subcutaneous Daily Mauro Keys MD 40 mg at 08/24/23 0853 haloperidol lactate (HALDOL) injection 5 mg 5 mg Intravenous Q6H PRN Carey Goldman MD 5 mg at 08/24/23 0036 methIMAzole (TAPAZOLE) tablet 20 mg 20 mg Oral BID Fortino Messina CNP 20 mg at 08/24/23 0853 nicotine (NICODERM CQ) 21 mg/24 hr 1 patch 1 patch Transdermal Daily Can Maldonado DO 1 patch at 08/24/23 0853 ondansetron (ZOFRAN-ODT) disintegrating tablet 4 mg 4 mg Oral Q6H PRN Mauro Keys MD Or ondansetron (ZOFRAN) injection 4 mg 4 mg Intravenous Q6H PRN Mauro Keys MD paliperidone (INVEGA) 24 hr tablet 6 mg 6 mg Oral Daily Mauro Keys MD 6 mg at 08/24/23 0853 propranoloL (INDERAL) tablet 80 mg 80 mg Oral Q6H [facility] Fortino Messina KATY 80 mg at 08/24/23 0525 sodium chloride (PF) (NS) flush 5 mL 5 mL Intravenous PRN Mauro Keys MD And sodium chloride (PF) (NS) flush 5 mL 5 mL Intravenous Q8H [facility] Mauro Keys MD 5 mL at 08/23/23 0604 And sodium chloride 0.9% (NS) 0-150 mL/hr Intravenous PRN Mauro Keys MD Objective: Physical Exam: Physical Exam Vitals reviewed. Constitutional: Appearance: He is not ill-appearing. Cardiovascular: Rate and Rhythm: Tachycardia present. Pulmonary: Breath sounds: Normal breath sounds. Neurological: Comments: +tremor Psychiatric: Attention and Perception: Attention normal. Mood and Affect: Mood is anxious. Speech: Speech is rapid and pressured. Behavior: Behavior is hyperactive. 54.4 kg (120 lb) 5' 7 Body mass index is 18.79 kg/m . Lab Review: Lab Results Component Value Date TSH 0.05 (L) 08/18/2023 TSH 0.05 (L) 08/18/2023 [id number] 189 (H) 08/23/2023 [id number] 19.8 (H) 08/18/2023 THYROIDAB 278.1 (H) 10/19/2019 Lab Results Component Value Date TSH 0.05 (L) 08/18/2023 TSH 0.05 (L) 08/18/2023 Lab Results Component Value Date FREET4 2.9 (H) 08/24/2023 Assessment: No diagnosis found. Dx: Hyperthyroidism. This diagnosis was discussed and reviewed with the patient including the advantages of drug therapy, radioactive iodine and surgery. Notes: 08/19: Patient examined in behavioral health unit. He prevents very disheveled, acutely ill-appearing, very anxious. labs reviewed. Case reviewed with Dr. Sequeira. Positive diagnostic criteria for thyroid storm include psychosis and tachycardia. A score of 45 or more is highly suggestive of thyroid storm and a score of 25-44 supports the diagnosis. Based on his most recent vital signs heart rate 171 and assessment his current score is 45. At this time we would recommend to transfer patient to ICU and treat for thyroid storm as below. 08/20: Patient is resting in his room, sitter at the bedside. He states he feels fine . He states he should be out of here in 2 days. He is currently living with family and says that he will stay there until he can get on his feet . He wants to be out of get a job in a car get his own apartment. He denies any symptoms currently of hyperthyroidism. He does appear anxious. His affect is fairly flat. Heart rate still remains around 115-120. Free T4 still registers at greater than 7.7. 08/21: Vital signs and labs reviewed. Currently on methimazole 20 mg every 6 hours. Solu-cortef 100 mg IV every 8 hours and SSKI gtts 5 drops every 6 hours. Free T4: 5.2; Total T3: 217; Na: 141; K: 3.9; Creat: 0.34; eGFR: 163; Ca: 8.7; AST: 25; ALT: 69 (improving); CBC: WBC: 11.86; Hgb: 9.8; Hct: 30.7; Plt: 210. Antibodies pending. BP ranging from 131/77-152/75 with heart rate between 97-114. Patient reports feeling better, would like to go home tomorrow. 08/22: Vital signs and labs reviewed. Currently on methimazole 20 mg every 8 hours. Solu-cortef 50 mg IV every 8 hours and SSKI gtts 5 drops every 6 hours. Free T4: 3.4; Total T3: pending; Na: 142; K: 3.4; Creat: 0.36; eGFR: 160; Ca: 8.6; AST: 20; ALT: 60 (improving); CBC: WBC: 11.21; Hgb: 9.8; Hct: 30.4; Plt: 219. Antibodies pending. BP ranging from 133/75-145/77 with heart rate between 104-110. Patient reports feeling better, would like to go home tomorrow. 08/23: Labs and vital signs reviewed over the past 24 hours. Sodium 141 potassium 4.1 chloride 108 bicarb 26, creatinine 0.33 GFR 165 Free T42.9 This a.m. Patient is on methimazole 20 mg twice daily. He is resting comfortably and denies any complaints right now. He has had periods of time with very normal heart rate, range 80-107. BP has been stable. Plan: 08/19: Increase Methimazole 20mg Q6 hours Stop Metoprolol- Initiate Propanolol 40mg Q6 hours Start Hydrocortisone 300mg once IV followed by 100mg Q8 hours Start SSKI 5 drops Q6 hours Check T3, FT4, TSI, TRAB once and then T3 and FT4 daily. 08/20: ~ Increase propranolol to 60 every 6 hours. Will increase to 80 mg every 6 hours to keep resting heart rate less than 90. ~ Continue methimazole as is. ~ Continue SSKI drops as is ~ continue hydrocortisone. Continue to monitor TFTs daily. 08/21: Decrease methimazole to 20 mg every 8 hours Decrease Hydrocortisone to 50 mg every 8 hours. Continue propanolol and SSKI at this time. Monitor TFT's and LFT's 08/22: Decrease methimazole to 20 mg twice daily Stop Hydrocortisone and SSIK gtts. Increase propranolol to 80 mg every 6 hours. Monitor TFT's and LFT's Continued hospitalization would be beneficial for this patient to assure compliance and symptom management. When he is ready for discharge we will plan to recheck labs at 1 and 2 week intervals and follow up at 2 week interval. 08/23: Continue methimazole 20 mg twice daily. He may be getting discharged to [facility] today. He will need to maintain on methimazole 20mg oral twice daily moving forward. As states above will recheck labs periodically. Methimazole WARNING/CAUTION: Even though it may be rare, some people may have very bad and sometimes deadly side effects when taking a drug. Tell your doctor or get medical help right away if you have any of the following signs or symptoms that may be related to a very bad side effect: Signs of an allergic reaction, like rash; hives; itching; red, swollen, blistered, or peeling skin with or without fever; wheezing; tightness in the chest or throat; trouble breathing or talking; unusual hoarseness; or swelling of the mouth, face, lips, tongue, or throat. Signs of infection like fever, chills, very bad sore throat, ear or sinus pain, cough, more sputum or change in color of sputum, pain with passing urine, mouth sores, or wound that will not heal. Signs of liver problems like dark urine, feeling tired, not hungry, upset stomach or stomach pain, light-colored stools, throwing up, or yellow skin or eyes. Electronically signed by Fabienne MURO 08/23/2409:51 AM [facility] Assessment and Plan Aba Carlton is a 23 y.o. male patient of , Physician with history of ADHD, Graves, HT presented on 08/18/2023 with Schizo affective disorder. Presented for Psychiatric evaluation and was admitted to psychiatry. Patient subsequently was noted to be in thyroid storm and transferred to ICU for medical management. Thyroid storm TSH 0.05 Elevated T4 and T3 Continue methimazole, propranolol, hydrocortisone and SSKI Daily T3 and T4 Replete electrolyte as needed keep k>4, Phos > 3, Mag >2 Patient Free T4 is improving Decrease the dose of methimazole to 20 mg twice daily, discontinue hydrocortisone and SSKI on on 08/22, increase metoprolol to 80 mg every 6 hours Schizo affective disorder Will be managed by attending Psychiatrist, currently on Depakote 500 mg daily, Invega 6 mg daily Psychiatry on board Tachycardia, improved Will check EKG Heart rate documented in the 140's, likely secondary to thyroid disease Started on Propanolol 40 mg every 6 hours Tobacco use Has nicotine patch Resolved acute medical issues Discharge Planning Medically Stable for Discharge Date: 08/25/2023 Patient requires continued hospitalization due to: Treatment of thyroid storm with IV medications discharge Location: Home versus psychiatric unit Quality Measures DVT Prophylaxis: lovenox Dixon Catheter: absent Code Status full code Primary Contact Information Subjective Patient seen and examined today morning at bedside. No acute overnight events. Patient still restless and asking to go home. Discussed with the patient at bedside the new results from the lab work and I was able to answer all his questions. Objective BP 135/88 Pulse (!) 104 Temp 97.4 F (36.3 C) (Oral) Resp 16 Ht 5' 7 Wt 54.4 kg (120 lb) SpO2 97% BMI 18.79 kg/m Physical Examination General Appearance: alert; chronically ill appearing; in no acute distress, restless HEENT: Head- normocephalic; Eyes- EOMI, sclera anicteric; Throat- mucous membranes moist Cardiovascular: r tachycardic; normal S1, S2; no murmurs, rubs, clicks or gallops; peripheral edema absent Respiratory: lungs clear to auscultation; without wheezes, rales or rhonchi; on room air Abdomen: soft, non-tender, non-distended Neurological: oriented x 3; normal speech; no focal findings or movement disorder noted Musculoskeletal: no significant deformity or tenderness to palpation Skin: normal coloration Psych: normal mood and affect Images from the original note were not included. Patient ID: Aba Carlton is a 23 y.o. male 2000 with a history of Graves' disease and schizoaffective disorder, bipolar type. He was initially seen in 2019 during hospitalization for psychiatric treatment and was diagnosed with Graves' disease at that time. He followed with our office briefly in 2019 for Graves' disease and Danilo's thyroiditis following multiple admissions. He presented to [facility] emergency room with complaints of needing medication refilled, diarrhea, vomiting. TFTs on admission TSH 0.05, free T4 greater than 7.7. We were consulted for management of his hyperthyroidism/Graves' disease/thyroid storm during hospitalization. Subjective: Aba Carlton is a 23 y.o. male who I was asked to see in consultation for evaluation of hyperthyroidism. Symptoms include tachycardia, jitteriness, restlessness, diarrhea, behavior problems. Symptoms have been present for unknown time. Initial diagnosis Graves disease was in 2019. Past Medical History: Diagnosis Date ADHD Graves disease Danilo's thyroiditis Hypertension Hyperthyroidism 10/20/2019 Hyperthyroidism Hyperthyroidism Schizo affective schizophrenia (HCC) Schizoaffective disorder (HCC) 10/20/2019 History reviewed. No pertinent surgical history. Family History Family history unknown: Yes Social History Substance and Sexual Activity Drug Use Yes Types: Marijuana Comment: I don't even smoke pot monthly Social History Tobacco Use Smoking Status Every Day Packs/day: 1.00 Years: 5.00 Additional pack years: 0.00 Total pack years: 5.00 Types: Cigarettes Smokeless Tobacco Never Review of Systems: Review of Systems Constitutional: Negative for fatigue. HENT: Negative for trouble swallowing. Gastrointestinal: Negative for diarrhea and vomiting. Psychiatric/Behavioral: Positive for behavioral problems and dysphoric mood. The patient is nervous/anxious and is hyperactive. The following portions of the patient's history were reviewed and updated as appropriate: allergies, current medications, past family history, past medical history, past social history, past surgical history and problem list. Home Medications: Current Facility-Administered Medications Medication Dose Route Frequency Provider Last Rate Last Admin diphenhydrAMINE (BENADRYL) injection 50 mg 50 mg Intravenous Q6H PRN Carey Goldman MD 50 mg at 08/22/23 210 divalproex (DEPAKOTE ER) 24 hr tablet 500 mg 500 mg Oral Daily Mauro Keys MD 500 mg at 08/23/23 08 enoxaparin (LOVENOX) syringe 40 mg 40 mg Subcutaneous Daily Mauro Keys MD 40 mg at 08/23/23 08 haloperidol lactate (HALDOL) injection 5 mg 5 mg Intravenous Q6H PRN Carey Goldman MD 5 mg at 08/22/23 210 hydrocortisone sod succ (SOLU-CORTEF) injection 50 mg 50 mg Intravenous Q8H [facility] Fortino Messina CNP 50 mg at 08/23/23 0600 magnesium sulfate 2 g in sterile water (SW) 50 mL IVPB 2 g Intravenous Once Can Maldonado DO methIMAzole (TAPAZOLE) tablet 20 mg 20 mg Oral Q8H Fortino Messina COMPLAINT INVESTIGATIONS OFFICER 20 mg at 08/23/23 0600 nicotine (NICODERM CQ) 21 mg/24 hr 1 patch 1 patch Transdermal Daily Can Maldonado DO 1 patch at 08/22/23 1022 ondansetron (ZOFRAN-ODT) disintegrating tablet 4 mg 4 mg Oral Q6H PRN Mauro Keys MD Or ondansetron (ZOFRAN) injection 4 mg 4 mg Intravenous Q6H PRN Mauro Keys MD paliperidone (INVEGA) 24 hr tablet 6 mg 6 mg Oral Daily Mauro Keys MD 6 mg at 08/23/23 0808 potassium iodide (SSKI) 1 gram/mL solution 5 drop 5 drop Oral Q6H Mauro Lord MD 5 drop at 08/23/23 06 propranoloL (INDERAL) tablet 60 mg 60 mg Oral Q6H [facility] Fabienne Bautista, COMPLAINT INVESTIGATIONS OFFICER 60 mg at 08/23/23 0600 sodium chloride (PF) (NS) flush 5 mL 5 mL Intravenous PRN Mauro Keys MD And sodium chloride (PF) (NS) flush 5 mL 5 mL Intravenous Q8H Mauro Lord MD 5 mL at 08/23/23 0604 And sodium chloride 0.9% (NS) 0-150 mL/hr Intravenous PRN Mauro Keys MD Objective: Physical Exam: Physical Exam Vitals reviewed. Constitutional: Appearance: He is not ill-appearing. Cardiovascular: Rate and Rhythm: Tachycardia present. Pulmonary: Breath sounds: Normal breath sounds. Neurological: Comments: +tremor Psychiatric: Attention and Perception: Attention normal. Mood and Affect: Mood is anxious. Speech: Speech is rapid and pressured. Behavior: Behavior is hyperactive. 54.4 kg (120 lb) 5' 7 Body mass index is 18.79 kg/m . Lab Review: Lab Results Component Value Date TSH 0.05 (L) 08/18/2023 TSH 0.05 (L) 08/18/2023 [id number] 217 (H) 08/22/2023 W6PNPTE 19.8 (H) 08/18/2023 THYROIDAB 278.1 (H) 10/19/2019 Lab Results Component Value Date TSH 0.05 (L) 08/18/2023 TSH 0.05 (L) 08/18/2023 Lab Results Component Value Date FREET4 3.4 (H) 08/23/2023 Assessment: No diagnosis found. Dx: Hyperthyroidism. This diagnosis was discussed and reviewed with the patient including the advantages of drug therapy, radioactive iodine and surgery. Notes: 08/19: Patient examined in behavioral health unit. He prevents very disheveled, acutely ill-appearing, very anxious. labs reviewed. Case reviewed with Dr. Sequeira. Positive diagnostic criteria for thyroid storm include psychosis and tachycardia. A score of 45 or more is highly suggestive of thyroid storm and a score of 25-44 supports the diagnosis. Based on his most recent vital signs heart rate 171 and assessment his current score is 45. At this time we would recommend to transfer patient to ICU and treat for thyroid storm as below. 08/20: Patient is resting in his room, sitter at the bedside. He states he feels fine . He states he should be out of here in 2 days. He is currently living with family and says that he will stay there until he can get on his feet . He wants to be out of get a job in a car get his own apartment. He denies any symptoms currently of hyperthyroidism. He does appear anxious. His affect is fairly flat. Heart rate still remains around 115-120. Free T4 still registers at greater than 7.7. 08/21: Vital signs and labs reviewed. Currently on methimazole 20 mg every 6 hours. Solu-cortef 100 mg IV every 8 hours and SSKI gtts 5 drops every 6 hours. Free T4: 5.2; Total T3: 217; Na: 141; K: 3.9; Creat: 0.34; eGFR: 163; Ca: 8.7; AST: 25; ALT: 69 (improving); CBC: WBC: 11.86; Hgb: 9.8; Hct: 30.7; Plt: 210. Antibodies pending. BP ranging from 131/77-152/75 with heart rate between 97-114. Patient reports feeling better, would like to go home tomorrow. 08/22: Vital signs and labs reviewed. Currently on methimazole 20 mg every 8 hours. Solu-cortef 50 mg IV every 8 hours and SSKI gtts 5 drops every 6 hours. Free T4: 3.4; Total T3: pending; Na: 142; K: 3.4; Creat: 0.36; eGFR: 160; Ca: 8.6; AST: 20; ALT: 60 (improving); CBC: WBC: 11.21; Hgb: 9.8; Hct: 30.4; Plt: 219. Antibodies pending. BP ranging from 133/75-145/77 with heart rate between 104-110. Patient reports feeling better, would like to go home tomorrow. Plan: 08/19: Increase Methimazole 20mg Q6 hours Stop Metoprolol- Initiate Propanolol 40mg Q6 hours Start Hydrocortisone 300mg once IV followed by 100mg Q8 hours Start SSKI 5 drops Q6 hours Check T3, FT4, TSI, TRAB once and then T3 and FT4 daily. 08/20: ~ Increase propranolol to 60 every 6 hours. Will increase to 80 mg every 6 hours to keep resting heart rate less than 90. ~ Continue methimazole as is. ~ Continue SSKI drops as is ~ continue hydrocortisone. Continue to monitor TFTs daily. 08/21: Decrease methimazole to 20 mg every 8 hours Decrease Hydrocortisone to 50 mg every 8 hours. Continue propanolol and SSKI at this time. Monitor TFT's and LFT's 08/22: Decrease methimazole to 20 mg twice daily Stop Hydrocortisone and SSIK gtts. Increase propranolol to 80 mg every 6 hours. Monitor TFT's and LFT's Continued hospitalization would be beneficial for this patient to assure compliance and symptom management. When he is ready for discharge we will plan to recheck labs at 1 and 2 week intervals and follow up at 2 week interval. Methimazole WARNING/CAUTION: Even though it may be rare, some people may have very bad and sometimes deadly side effects when taking a drug. Tell your doctor or get medical help right away if you have any of the following signs or symptoms that may be related to a very bad side effect: Signs of an allergic reaction, like rash; hives; itching; red, swollen, blistered, or peeling skin with or without fever; wheezing; tightness in the chest or throat; trouble breathing or talking; unusual hoarseness; or swelling of the mouth, face, lips, tongue, or throat. Signs of infection like fever, chills, very bad sore throat, ear or sinus pain, cough, more sputum or change in color of sputum, pain with passing urine, mouth sores, or wound that will not heal. Signs of liver problems like dark urine, feeling tired, not hungry, upset stomach or stomach pain, light-colored stools, throwing up, or yellow skin or eyes. Electronically Signed by: Fortino Messina CNP 08/23/23 8:04 AM Nutrition Care Initial Assessment Reason for visit: Dietitian Screen: Borderline BMI with noted weight loss per history. Nutrition Diagnosis: Increased Energy Expenditure r/t physiological causes aeb conditions associated with dx (hyperthyroidism). Nutrition Intervention Initiate Medical Food Supplement Nutrition Prescription: Diet:Continue Regular Oral nutrition supplement: Add Boost Plus with each meal Nutrition Goals: Tolerate diet with PO intakes >75% most meals Start Date:08/22/2023 Expected End Date:08/26/2023 Nutrition Education: Not appropriate due to clinical presentation Assessment: Pertinent clinical information: Presents with thyroid storm. Past Medical History: Diagnosis Date ADHD Graves disease Danilo's thyroiditis Hypertension Hyperthyroidism 10/20/2019 Hyperthyroidism Hyperthyroidism Schizo affective schizophrenia (HCC) Schizoaffective disorder (HCC) 10/20/2019 History reviewed. No pertinent surgical history. Height: 5' 7 Current weight: 54.4 kg (120 lb) BMI Body mass index is 18.79 kg/m . Weight hx: Wt Readings from Last 10 Encounters: 08/21/23 54.4 kg (120 lb) 08/18/23 54.4 kg (120 lb) 02/26/20 75.3 kg (166 lb) 02/11/20 71.2 kg (157 lb) 01/27/20 72.8 kg (160 lb 6.4 oz) 01/14/20 76.9 kg (169 lb 8 oz) 12/26/19 67.1 kg (148 lb) 11/22/19 63 kg (138 lb 12.8 oz) 11/20/19 61.1 kg (134 lb 9.6 oz) 11/12/19 60.8 kg (134 lb) Significant Weight Change: Yes, timeframe unclear. Weight tends to fluctuate though appears at lowest per trend. Current diet order: Diet: Regular Recent intake: 75-100% Current intake likely meets estimated needs. Barriers to adequate p.o. intakes: No barriers identified Nutrition Related Allergies/Intolerances: No Nutrition Related Allergies noted Cultural or Denominational Dietary Needs :No Cultural or Denominational Dietary needs noted Patient/family comments: Pt up pacing room. 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 Per BUCKLE STRAP DRUM OPERATOR, patient has been eating a lot. Pt frantically asked RDN for multiple food items; educated pt I would provide him with two options from unit kitchen- requesting black coffee and pudding so RD provided pt with these items. He is agreeable to boost plus TID with each meal. Suspect appetite is increased 2/2 thyroid storm and solu cortef. Difficulty Chewing or Swallowing: No Skin Integrity: Intact GI Function: WDL Fluid Status: WNL Physical Appearance: thin Labs: Recent Labs 08/22/23 0524 NA 141 K 3.9 BICARB 24 CL 109* GLUCOSE 109* BUN 15 CREATININE 0.34* MG 1.8 PHOS 5.0* ALBUMIN 3.2 Recent Labs 08/20/23 1048 08/21/23 1029 08/22/23 0524 GLUCOSE 132* 186* 109* Lab Results Component Value Date HGBA1C 5.7 (H) 08/18/2023 Home Medications Reviewed: Yes Scheduled Meds: divalproex 500 mg Oral Daily enoxaparin (LOVENOX) injection 40 mg Subcutaneous Daily hydrocortisone sod succinate 50 mg Intravenous Q8H [facility] methIMAzole 20 mg Oral Q8H nicotine 1 patch Transdermal Daily paliperidone 6 mg Oral Daily potassium iodide 5 drop Oral Q6H [facility] propranoloL 60 mg Oral Q6H [facility] sodium chloride (PF) 5 mL Intravenous Q8H [facility] Continuous Infusions: sodium chloride 0.9 % sodium chloride 0.9 % 100 mL/hr (08/21/23 1326) Nutrient Depleting Medications: No chronic use of nutrient depleting medications noted. Medications whose absorption may be altered by tube feeding: N/A Estimated Energy Needs Total Energy Estimated Needs: [id number] Method for Estimating Needs: 35 kcal/kg Total Protein Estimated Needs: 65 Method for Estimating Needs: 1.2 gm/kg Sabine Blankenship RD [facility] [place] Assessment and Plan Aba Carlton is a 23 y.o. male patient of , Physician with history of ADHD, Graves, HT presented on 08/18/2023 with Schizo affective disorder. Presented for Psychiatric evaluation and was admitted to psychiatry. Patient subsequently was noted to be in thyroid storm and transferred to ICU for medical management. Thyroid storm TSH 0.05 Elevated T4 and T3 Continue methimazole, propranolol, hydrocortisone and SSKI Daily T3 and T4 Replete electrolyte as needed keep k>4, Phos > 3, Mag >2 Patient Free T4 is improving Schizo affective disorder Will be managed by attending Psychiatrist, currently on Depakote 500 mg daily, Invega 6 mg daily Psychiatry on board Tachycardia, improved Will check EKG Heart rate documented in the 140's, likely secondary to thyroid disease Started on Propanolol 40 mg every 6 hours Tobacco use Has nicotine patch Resolved acute medical issues Discharge Planning Medically Stable for Discharge Date: 08/24/2023 Patient requires continued hospitalization due to: Treatment of thyroid storm with IV medications discharge Location: Home versus psychiatric unit Quality Measures DVT Prophylaxis: lovenox Dixon Catheter: absent Code Status full code Primary Contact Information Subjective Patient was seen and examined today morning at bedside. No overnight events. Still little restless was eating while he was moving in the room. Denies any chest pain palpitation. Was asking to go home today and promising that he will be compliant with his medication. Objective BP 138/81 Pulse (!) 109 Temp 98 F (36.7 C) (Oral) Resp 18 Ht 5' 7 Wt 54.4 kg (120 lb) SpO2 98% BMI 18.79 kg/m Physical Examination General Appearance: alert; chronically ill appearing; in no acute distress, restless HEENT: Head- normocephalic; Eyes- EOMI, sclera anicteric; Throat- mucous membranes moist Cardiovascular: r tachycardic; normal S1, S2; no murmurs, rubs, clicks or gallops; peripheral edema absent Respiratory: lungs clear to auscultation; without wheezes, rales or rhonchi; on room air Abdomen: soft, non-tender, non-distended Neurological: oriented x 3; normal speech; no focal findings or movement disorder noted Musculoskeletal: no significant deformity or tenderness to palpation Skin: normal coloration Psych: normal mood and affect Images from the original note were not included. Patient ID: Aba Carlton is a 23 y.o. male 2000 with a history of Graves' disease and schizoaffective disorder, bipolar type. He was initially seen in 2019 during hospitalization for psychiatric treatment and was diagnosed with Graves' disease at that time. He followed with our office briefly in 2019 for Graves' disease and Danilo's thyroiditis following multiple admissions. He presented to [facility] emergency room with complaints of needing medication refilled, diarrhea, vomiting. TFTs on admission TSH 0.05, free T4 greater than 7.7. We were consulted for management of his hyperthyroidism/Graves' disease/thyroid storm during hospitalization. Subjective: Aba Carlton is a 23 y.o. male who I was asked to see in consultation for evaluation of hyperthyroidism. Symptoms include tachycardia, jitteriness, restlessness, diarrhea, behavior problems. Symptoms have been present for unknown time. Initial diagnosis Graves disease was in 2019. Past Medical History: Diagnosis Date ADHD Graves disease Danilo's thyroiditis Hypertension Hyperthyroidism 10/20/2019 Hyperthyroidism Hyperthyroidism Schizo affective schizophrenia (HCC) Schizoaffective disorder (HCC) 10/20/2019 History reviewed. No pertinent surgical history. Family History Family history unknown: Yes Social History Substance and Sexual Activity Drug Use Yes Types: Marijuana Comment: I don't even smoke pot monthly Social History Tobacco Use Smoking Status Every Day Packs/day: 1.00 Years: 5.00 Additional pack years: 0.00 Total pack years: 5.00 Types: Cigarettes Smokeless Tobacco Never Review of Systems: Review of Systems Constitutional: Negative for fatigue. HENT: Negative for trouble swallowing. Gastrointestinal: Negative for diarrhea and vomiting. Psychiatric/Behavioral: Positive for behavioral problems and dysphoric mood. The patient is nervous/anxious and is hyperactive. The following portions of the patient's history were reviewed and updated as appropriate: allergies, current medications, past family history, past medical history, past social history, past surgical history and problem list. Home Medications: Current Facility-Administered Medications Medication Dose Route Frequency Provider Last Rate Last Admin diphenhydrAMINE (BENADRYL) injection 50 mg 50 mg Intravenous Q6H PRN Carey Goldman MD 50 mg at 08/21/23 210 divalproex (DEPAKOTE ER) 24 hr tablet 500 mg 500 mg Oral Daily Mauro Keys MD 500 mg at 08/21/23 0820 enoxaparin (LOVENOX) syringe 40 mg 40 mg Subcutaneous Daily Mauro Keys MD 40 mg at 08/21/23 0820 haloperidol lactate (HALDOL) injection 5 mg 5 mg Intravenous Q6H PRN Carey Goldman MD 5 mg at 08/21/23 1351 hydrocortisone sod succ (SOLU-CORTEF) injection 100 mg 100 mg Intravenous Q8H [facility] Mauro eKys MD 100 mg at 08/22/23 0604 methIMAzole (TAPAZOLE) tablet 20 mg 20 mg Oral Q6H [facility] Mauro Keys MD 20 mg at 08/22/23 0600 nicotine (NICODERM CQ) 21 mg/24 hr 1 patch 1 patch Transdermal Daily Can Maldonado DO 1 patch at 08/21/23 0820 ondansetron (ZOFRAN-ODT) disintegrating tablet 4 mg 4 mg Oral Q6H PRN Mauro Keys MD Or ondansetron (ZOFRAN) injection 4 mg 4 mg Intravenous Q6H PRN Mauro Keys MD paliperidone (INVEGA) 24 hr tablet 6 mg 6 mg Oral Daily Mauro Keys MD 6 mg at 08/21/23 0820 potassium iodide (SSKI) 1 gram/mL solution 5 drop 5 drop Oral Q6H [facility] Mauro Keys MD 5 drop at 08/22/23 0600 propranoloL (INDERAL) tablet 60 mg 60 mg Oral Q6H [facility] Fabienne Bautista, COMPLAINT INVESTIGATIONS OFFICER 60 mg at 08/22/23 0604 sodium chloride (PF) (NS) flush 5 mL 5 mL Intravenous PRN Mauro Keys MD And sodium chloride (PF) (NS) flush 5 mL 5 mL Intravenous Q8H [facility] Mauro Keys MD 5 mL at 08/22/23 0600 And sodium chloride 0.9% (NS) 0-150 mL/hr Intravenous PRN Mauro Keys MD sodium chloride 0.9% (NS) 100 mL/hr Intravenous Continuous Mauro Keys MD 100 mL/hr at 08/21/23 1326 Rate Verify at 08/21/23 1326 Objective: Physical Exam: Physical Exam Vitals reviewed. Constitutional: Appearance: He is not ill-appearing. Cardiovascular: Rate and Rhythm: Tachycardia present. Pulmonary: Breath sounds: Normal breath sounds. Neurological: Comments: +tremor Psychiatric: Attention and Perception: He is inattentive. Mood and Affect: Mood is anxious. Affect is flat. Behavior: Behavior is hyperactive. Thought Content: Thought content is delusional. 54.4 kg (120 lb) Body mass index is 18.79 kg/m . Lab Review: Lab Results Component Value Date TSH 0.05 (L) 08/18/2023 TSH 0.05 (L) 08/18/2023 [id number] 217 (H) 08/22/2023 W3CUNVD 19.8 (H) 08/18/2023 THYROIDAB 278.1 (H) 10/19/2019 Lab Results Component Value Date TSH 0.05 (L) 08/18/2023 TSH 0.05 (L) 08/18/2023 Lab Results Component Value Date FREET4 5.2 (H) 08/22/2023 Assessment: No diagnosis found. Dx: Hyperthyroidism. This diagnosis was discussed and reviewed with the patient including the advantages of drug therapy, radioactive iodine and surgery. Notes: 08/19: Patient examined in behavioral health unit. He prevents very disheveled, acutely ill-appearing, very anxious. labs reviewed. Case reviewed with Dr. Sequeira. Positive diagnostic criteria for thyroid storm include psychosis and tachycardia. A score of 45 or more is highly suggestive of thyroid storm and a score of 25-44 supports the diagnosis. Based on his most recent vital signs heart rate 171 and assessment his current score is 45. At this time we would recommend to transfer patient to ICU and treat for thyroid storm as below. 08/20: Patient is resting in his room, sitter at the bedside. He states he feels fine . He states he should be out of here in 2 days. He is currently living with family and says that he will stay there until he can get on his feet . He wants to be out of get a job in a car get his own apartment. He denies any symptoms currently of hyperthyroidism. He does appear anxious. His affect is fairly flat. Heart rate still remains around 115-120. Free T4 still registers at greater than 7.7. 08/21: Vital signs and labs reviewed. Currently on methimazole 20 mg every 6 hours. Solu-cortef 100 mg IV every 8 hours and SSKI gtts 5 drops every 6 hours. Free T4: 5.2; Total T3: 217; Na: 141; K: 3.9; Creat: 0.34; eGFR: 163; Ca: 8.7; AST: 25; ALT: 69 (improving); CBC: WBC: 11.86; Hgb: 9.8; Hct: 30.7; Plt: 210. Antibodies pending. BP ranging from 131/77-152/75 with heart rate between 97-114. Patient reports feeling better, would like to go home tomorrow. Plan: 08/19: Increase Methimazole 20mg Q6 hours Stop Metoprolol- Initiate Propanolol 40mg Q6 hours Start Hydrocortisone 300mg once IV followed by 100mg Q8 hours Start SSKI 5 drops Q6 hours Check T3, FT4, TSI, TRAB once and then T3 and FT4 daily. 08/20: ~ Increase propranolol to 60 every 6 hours. Will increase to 80 mg every 6 hours to keep resting heart rate less than 90. ~ Continue methimazole as is. ~ Continue SSKI drops as is ~ continue hydrocortisone. Continue to monitor TFTs daily. 08/21: Decrease methimazole to 20 mg every 8 hours Decrease Hydrocortisone to 50 mg every 8 hours. Continue propanolol and SSKI at this time. Monitor TFT's and LFT's Methimazole WARNING/CAUTION: Even though it may be rare, some people may have very bad and sometimes deadly side effects when taking a drug. Tell your doctor or get medical help right away if you have any of the following signs or symptoms that may be related to a very bad side effect: Signs of an allergic reaction, like rash; hives; itching; red, swollen, blistered, or peeling skin with or without fever; wheezing; tightness in the chest or throat; trouble breathing or talking; unusual hoarseness; or swelling of the mouth, face, lips, tongue, or throat. Signs of infection like fever, chills, very bad sore throat, ear or sinus pain, cough, more sputum or change in color of sputum, pain with passing urine, mouth sores, or wound that will not heal. Signs of liver problems like dark urine, feeling tired, not hungry, upset stomach or stomach pain, light-colored stools, throwing up, or yellow skin or eyes. Electronically Signed by: Fortino Messina CNP 08/22/23 8:04 AM Psychiatry Progress Note Patient Name: Aba Carlton Admit Date: [id number] MR #: [id number] : 2000 Perpetual Assessment Aba Carlton is a 23 y.o. male presenting with schizoaffective disorder and thyroid storm Diagnosis & Plan/Recommendations PRINCIPAL DIAGNOSIS: Thyroid storm No new Assessment & Plan notes have been filed under this hospital service since the last note was generated. Service: Behavioral Medicine Comorbid issues impacting my care plan include substance use and Graves Disease . Following for impulsive, erratic behavior,insomnia, agitation, self-endangerment by refusal to care for his medical problems. Interval History: When can I be discharged? Aba says he feels great and energized and he wants to leave. His medical condition is improving gradually. The experience of moving to the ICU has not made him any more aware of the need to take care of himself and comply with medical care. However, he is being treasonably cooperative in his current setting. His mood is positive. Denies hallucinations. No suicidal thoughts. Review of Systems: Constitutional, cardiac, pulmonary, neurologic, musculoskeletal, GI, and systems reveiwed and negative except as noted above Physical Examination: Vital Signs: BP (!) 133/47 Pulse (!) 104 Temp 98.4 F (36.9 C) (Oral) Resp (!) 30 SpO2 93% Mental Status Evaluation: General Appearance & Behavior: age appropriate, pleasant, cooperative, good eye contact Grooming & Hygiene: hospital gown Psychomotor Activity: psychomotor agitation and tremor in extremities Gait & Station gait and station not observed as patient laying in bed Speech: Fast but not pressured. Flow of Thought: perseveration Thought Associations: Intact Content of Thought: No evidence of suicidal ideations/homicidal ideations/psychosis Mood: great Affect: manic Insight: impaired Judgment: impaired Orientation: alert and oriented to person, place, time, and circumstances Memory: intact recent and remote Attention: impaired Concentration: reduced Language: WNL Fund of Knowledge: estimated below average intelligence Laboratory and Additional Data Reviewed: Laboratory 08/21/23 12:36 PM Medications 08/21/23 12:36 PM Transcriptions 08/21/23 12:36 PM Treatment options and alternatives reviewed with patient. Risks, benefits, side effects of all psychiatric medications discussed with patient and informed consent obtained. All questions were answered. Carey Goldman MD 08/21/2023 12:27 PM Images from the original note were not included. Patient ID: Aba Carlton is a 23 y.o. male 2000 with a history of Graves' disease and schizoaffective disorder, bipolar type. He was initially seen in 2019 during hospitalization for psychiatric treatment and was diagnosed with Graves' disease at that time. He followed with our office briefly in 2019 for Graves' disease and Danilo's thyroiditis following multiple admissions. He presented to [facility] emergency room with complaints of needing medication refilled, diarrhea, vomiting. TFTs on admission TSH 0.05, free T4 greater than 7.7. We were consulted for management of his hyperthyroidism/Graves' disease/thyroid storm during hospitalization. Subjective: Aba Carlton is a 23 y.o. male who I was asked to see in consultation for evaluation of hyperthyroidism. Symptoms include tachycardia, jitteriness, restlessness, diarrhea, behavior problems. Symptoms have been present for unknown time. Initial diagnosis Graves disease was in 2019. Past Medical History: Diagnosis Date ADHD Graves disease Danilo's thyroiditis Hypertension Hyperthyroidism 10/20/2019 Hyperthyroidism Hyperthyroidism Schizo affective schizophrenia (HCC) Schizoaffective disorder (HCC) 10/20/2019 No past surgical history on file. Family History Family history unknown: Yes Social History Substance and Sexual Activity Drug Use Yes Types: Marijuana Comment: I don't even smoke pot monthly Social History Tobacco Use Smoking Status Every Day Packs/day: 1.00 Years: 5.00 Additional pack years: 0.00 Total pack years: 5.00 Types: Cigarettes Smokeless Tobacco Never Review of Systems: Review of Systems Constitutional: Negative for fatigue. HENT: Negative for trouble swallowing. Gastrointestinal: Negative for diarrhea and vomiting. Psychiatric/Behavioral: Positive for behavioral problems and dysphoric mood. The patient is nervous/anxious and is hyperactive. The following portions of the patient's history were reviewed and updated as appropriate: allergies, current medications, past family history, past medical history, past social history, past surgical history and problem list. Home Medications: Current Facility-Administered Medications Medication Dose Route Frequency Provider Last Rate Last Admin diphenhydrAMINE (BENADRYL) injection 50 mg 50 mg Intravenous Q6H PRN Carey Goldman MD 50 mg at 08/21/23 0734 divalproex (DEPAKOTE ER) 24 hr tablet 500 mg 500 mg Oral Daily Mauro Keys MD 500 mg at 08/21/23 0820 enoxaparin (LOVENOX) syringe 40 mg 40 mg Subcutaneous Daily Mauro Keys MD 40 mg at 08/21/23 0820 haloperidol lactate (HALDOL) injection 5 mg 5 mg Intravenous Q6H PRN Carey Goldman MD 5 mg at 08/21/23 0734 hydrocortisone sod succ (SOLU-CORTEF) injection 100 mg 100 mg Intravenous Q8H [facility] Mauro Keys MD 100 mg at 08/21/23 0731 methIMAzole (TAPAZOLE) tablet 20 mg 20 mg Oral Q6H [facility] Mauro Keys MD 20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 Started on Propanolol 40 mg every 6 hours Tobacco use Has nicotine patch Residence prior to admission: [facility] Quality Measures DVT Prophylaxis: lovenox Dixon Catheter: absent Medication Reconciliation: Verified Admitted with these risk variables:None. Please see assessment and plan for further details. Estimated Date of Discharge greater than 2 midnights Code Status Full Code; code status verified on 08/20/2023 with patient (capacity intact) Chief Complaint Thyroid Staci History of Present Illness Aba Carlton is a 23 y.o. male patient of Brigitte, Physician with history of ADHD, Graves, HT presented on 08/18/2023 with Schizo affective disorder. Presented for Psychiatric evaluation and was admitted to psychiatry. Patient subsequently was noted to be in thyroid storm and transferred to ICU for medical management. Past Medical History Past Medical History: Diagnosis Date ADHD Graves disease Danilo's thyroiditis Hypertension Hyperthyroidism 10/20/2019 Hyperthyroidism Hyperthyroidism Schizo affective schizophrenia (HCC) Schizoaffective disorder (HCC) 10/20/2019 Past Surgical History No past surgical history on file. Family History Family History Family history unknown: Yes Social History Social History Tobacco Use Smoking Status Every Day Packs/day: 1.00 Years: 5.00 Additional pack years: 0.00 Total pack years: 5.00 Types: Cigarettes Smokeless Tobacco Never Social History Substance and Sexual Activity Alcohol Use Not Currently Social History Substance and Sexual Activity Drug Use Yes Types: Marijuana Comment: I don't even smoke pot monthly Allergy Information I have reviewed the patient's allergies. Grass pollen-red top, standard and Mite extract Home Medications Home medications were reviewed. Review Of Systems All relevant systems have been reviewed and are negative except as noted in HPI or below Physical Examination BP (!) 158/87 Pulse (!) 144 Temp 98.4 F (36.9 C) (Oral) Resp (!) 33 SpO2 97% Physical Examination very disheveled General Appearance: alert; acutely ill appearing; in mild acute distress HEENT: Head- normocephalic; Eyes- EOMI, sclera anicteric; Throat- mucous membranes moist Cardiovascular: regular rate, tachycardic; normal S1, S2; no murmurs, rubs, clicks or gallops; peripheral edema absent Respiratory: lungs clear to auscultation; without wheezes, rales or rhonchi; on room air Abdomen: soft, non-tender, non-distended Neurological: oriented x 3; normal speech; no focal findings or movement disorder noted; Cranial Nerves: II: visual sullivan full. III, IV, : extraocular range intact. V: sensation intact. VII: facial symmetric with 5/5 strength. VIII: hearing intact to voice and finger rub. IX, X: palate elevates symmetrically. XI: shrugs shoulders 5/5 strength bilaterally. XII: tongue protrudes in midline. Sensation -grossly symmetrical. Motor strength 5/5 all over. DTR 2+ in the UE and LE bilaterally. Musculoskeletal: no significant deformity or tenderness to palpation Skin: pale coloration Psych: normal affect ; very anxious Associated attestation - Mauro Keys MD - 08/20/2023 12:32 PM EDT Patient seen independently of [facility]. Patient was admitted to the psychiatry for schizoaffective disorder. He was found to have tachycardia, was seen by endocrinology and transferred to medical unit in ICU for thyroid storm. Currently patient remains anxious, fidgeting, frequently getting out of bed. Denies any pain, abdominal pain nausea vomiting. Sitter at bedside. Vital signs reviewed, on exam alert, anxious, chronically ill-appearing. Cardiovascular tachycardic, no murmur appreciate pulmonary clear to auscultation bilaterally, abdomen soft nontender, otherwise exam as below. Labs personally reviewed Thyroid storm/Graves-endocrinology following, started on methimazole, propranolol, hydrocortisone, SSKI. Monitor TFTs Schizoaffective disorder-psychiatry consult, continue Depakote, Invega [employer] Work Phone: 08-20-2023 History and physical note [facility] Patient Name: Aba Carlton : 2000 MR #: [id number] Admit Date: 08/20/2023 Physicians: No, Physician (Family); No ref. provider found (Referring) Aba Carlton is a 23 y.o. male patient of No, Physician with history of ADHD, Graves, HT presented on 08/18/2023 with Schizo affective disorder. Presented for Psychiatric evaluation and was admitted to psychiatry. Patient subsequently was noted to be in thyroid storm and transferred to ICU for medical management. Thyroid storm TSH 0.05 Endocrinology following, recommending ICU admit, increase Methimazole 200 mg every 6 hours, Initiate Propanolol 40 mg every 6 hours, Hydrocortisone 300 mg once followed by 100 mg every 8 hours, start SSKI 5 drop every 6 hours T3FT4, TSI, TRAB once and then T3 and FT4 daily Schizo affective disorder Will be managed by attending Psychiatrist, currently on Depakote 500 mg daily, Invega 6 mg daily Tachycardia Will check EKG Heart rate documented in the 140's, likely secondary to thyroid disease Started on Propanolol 40 mg every 6 hours Tobacco use Has nicotine patch Residence prior to admission: [facility] Quality Measures DVT Prophylaxis: lovenox Dixon Catheter: absent Medication Reconciliation: Verified Admitted with these risk variables:None. Please see assessment and plan for further details. Estimated Date of Discharge greater than 2 midnights Code Status Full Code; code status verified on 08/20/2023 with patient (capacity intact) Chief Complaint Thyroid Staci History of Present Illness Aba Carlton is a 23 y.o. male patient of , Physician with history of ADHD, Graves, HT presented on 08/18/2023 with Schizo affective disorder. Presented for Psychiatric evaluation and was admitted to psychiatry. Patient subsequently was noted to be in thyroid storm and transferred to ICU for medical management. Past Medical History Past Medical History: Diagnosis Date ADHD Graves disease Danilo's thyroiditis Hypertension Hyperthyroidism 10/20/2019 Hyperthyroidism Hyperthyroidism Schizo affective schizophrenia (HCC) Schizoaffective disorder (HCC) 10/20/2019 Past Surgical History No past surgical history on file. Family History Family History Family history unknown: Yes Social History Social History Tobacco Use Smoking Status Every Day Packs/day: 1.00 Years: 5.00 Additional pack years: 0.00 Total pack years: 5.00 Types: Cigarettes Smokeless Tobacco Never Social History Substance and Sexual Activity Alcohol Use Not Currently Social History Substance and Sexual Activity Drug Use Yes Types: Marijuana Comment: I don't even smoke pot monthly Allergy Information I have reviewed the patient's allergies. Grass pollen-red top, standard and Mite extract Home Medications Home medications were reviewed. Review Of Systems All relevant systems have been reviewed and are negative except as noted in HPI or below Physical Examination BP (!) 158/87 Pulse (!) 144 Temp 98.4 F (36.9 C) (Oral) Resp (!) 33 SpO2 97% Physical Examination very disheveled General Appearance: alert; acutely ill appearing; in mild acute distress HEENT: Head- normocephalic; Eyes- EOMI, sclera anicteric; Throat- mucous membranes moist Cardiovascular: regular rate, tachycardic; normal S1, S2; no murmurs, rubs, clicks or gallops; peripheral edema absent Respiratory: lungs clear to auscultation; without wheezes, rales or rhonchi; on room air Abdomen: soft, non-tender, non-distended Neurological: oriented x 3; normal speech; no focal findings or movement disorder noted; Cranial Nerves: II: visual sullivan full. III, IV, : extraocular range intact. V: sensation intact. VII: facial symmetric with 5/5 strength. VIII: hearing intact to voice and finger rub. IX, X: palate elevates symmetrically. XI: shrugs shoulders 5/5 strength bilaterally. XII: tongue protrudes in midline. Sensation -grossly symmetrical. Motor strength 5/5 all over. DTR 2+ in the UE and LE bilaterally. Musculoskeletal: no significant deformity or tenderness to palpation Skin: pale coloration Psych: normal affect ; very anxious Associated attestation - Mauro Keys MD - 08/20/2023 12:32 PM EDT Patient seen independently of [facility]. Patient was admitted to the psychiatry for schizoaffective disorder. He was found to have tachycardia, was seen by endocrinology and transferred to medical unit in ICU for thyroid storm. Currently patient remains anxious, fidgeting, frequently getting out of bed. Denies any pain, abdominal pain nausea vomiting. Sitter at bedside. Vital signs reviewed, on exam alert, anxious, chronically ill-appearing. Cardiovascular tachycardic, no murmur appreciate pulmonary clear to auscultation bilaterally, abdomen soft nontender, otherwise exam as below. Labs personally reviewed Thyroid storm/Graves-endocrinology following, started on methimazole, propranolol, hydrocortisone, SSKI. Monitor TFTs Schizoaffective disorder-psychiatry consult, continue Depakote, Invega documented in this encounter [facility] 03-29-2023 Hospital Discharge instructions Damir Elliott APRN-CNP - 03/29/2023 8:26 AM EST Follow up with your PCP/PM&R documented in this encounter [facility] 11-01-2021 Note HNO ID: [id number] Author: Fred Marks APRN.CNP Service: ? Author Type: Nurse Practitioner Type: Progress Notes Filed: 11/01/2021 5:12 PM Note Text: PROGRESS NOTE - INTERNAL MEDICINE PATIENT NAME: Aba Carlton SERVICE DATE: 11/01/2021 SERVICE TIME: 12:13 PM INTERVAL HPI: Aba Carlton is a 21 year old male being seen for stability visit for medication reconciliation and transfer of care. Patient is alert and in NAD. Patient denies any cough, chest pain, or SOB. Staff reports that the patient has not been on any of his medications since he was admitted. Patient is scheduled to follow up with Psychiatry next month. OBJECTIVE: Medications reviewed in [facility] REVIEW OF SYSTEMS GENERAL: No weight loss, malaise or fevers HEENT: Negative for frequent or significant headaches, No changes in hearing or vision, no nose bleeds or other nasal problems NECK: Negative for lumps, goiter, pain and significant neck swelling RESPIRATORY: Negative for cough, wheezing or shortness of breath. CARDIOVASCULAR: Negative for chest pain, leg swelling or palpitations. GI: No nausea, vomiting, or diarrhea : No history of dysuria, frequency or incontinence MUSCULOSKELETAL: No muscle weakness or joint pain. NEURO: Negative for dizziness, headache, weakness or numbness. PHYSICAL EXAM: There were no vitals taken for this visit. There is no height or weight on file to calculate BMI. GENERAL: Well developed, alert, in no acute distress. EYES: EOMI, conjunctiva/sclera clear. EARS: EAC normal. NOSE: Nasal mucosa appears moist and normal in appearance. ORAL CAVITY: Good dentition, no thrush. NECK/THYROID: Neck supple. No JVD noted. SKIN: Skin color, texture, turgor normal. No abrasions, lesions or masses. CARDIAC: Regular rate and rhythm, no murmurs, rubs, gallops. LUNGS: Clear to auscultation bilaterally, no wheezes, rales, rhonchi. ABDOMEN: Normal, bowel sounds present, soft, nontender, nondistended, no CVA tenderness. RECTAL: Not examined. MALE GENITOURINARY: Not done. MUSCULOSKELETAL: No joint swelling or deformity, joints show normal ROM. EXTREMITIES: No edema, No calf tenderness. NEURO: Alert and oriented x 3, no motor deficits, gait steady, speech fluent. ASSESSMENT/PLAN: 1. Primary hypertension - ICD9: 401.9, ICD10: I10 (primary diagnosis) - good control - Recommended regular aerobic exercise. - Recommend home blood pressure monitoring, to bring results in on next visit - Goal of BP <130/80 - BASIC METABOLIC PNL 2. Depression, unspecified depression type - ICD9: 311, ICD10: F32.A Stable, will monitor mood, thoughts and behaviors 3. Hypothyroidism, unspecified type - ICD9: 244.9, ICD10: E03.9 - Instructed patient on importance of taking on an empty stomach either first thing in the morning or at bedtime. Stable - Continue current medications Fred Marks APRN.CNP DATE: November 01, 2021 TIME: 12:13 PM [facility] 11-01-2021 History of Present illness Narrative PROGRESS NOTE - INTERNAL MEDICINE PATIENT NAME: Aba Carlton SERVICE DATE: 11/01/2021 SERVICE TIME: 12:13 PM INTERVAL HPI: Aba Carlton is a 21 year old male being seen for stability visit for medication reconciliation and transfer of care. Patient is alert and in NAD. Patient denies any cough, chest pain, or SOB. Staff reports that the patient has not been on any of his medications since he was admitted. Patient is scheduled to follow up with Psychiatry next month. OBJECTIVE: Medications reviewed in [facility] REVIEW OF SYSTEMS GENERAL: No weight loss, malaise or fevers HEENT: Negative for frequent or significant headaches, No changes in hearing or vision, no nose bleeds or other nasal problems NECK: Negative for lumps, goiter, pain and significant neck swelling RESPIRATORY: Negative for cough, wheezing or shortness of breath. CARDIOVASCULAR: Negative for chest pain, leg swelling or palpitations. GI: No nausea, vomiting, or diarrhea : No history of dysuria, frequency or incontinence MUSCULOSKELETAL: No muscle weakness or joint pain. NEURO: Negative for dizziness, headache, weakness or numbness. PHYSICAL EXAM: There were no vitals taken for this visit. There is no height or weight on file to calculate BMI. GENERAL: Well developed, alert, in no acute distress. EYES: EOMI, conjunctiva/sclera clear. EARS: EAC normal. NOSE: Nasal mucosa appears moist and normal in appearance. ORAL CAVITY: Good dentition, no thrush. NECK/THYROID: Neck supple. No JVD noted. SKIN: Skin color, texture, turgor normal. No abrasions, lesions or masses. CARDIAC: Regular rate and rhythm, no murmurs, rubs, gallops. LUNGS: Clear to auscultation bilaterally, no wheezes, rales, rhonchi. ABDOMEN: Normal, bowel sounds present, soft, nontender, nondistended, no CVA tenderness. RECTAL: Not examined. MALE GENITOURINARY: Not done. MUSCULOSKELETAL: No joint swelling or deformity, joints show normal ROM. EXTREMITIES: No edema, No calf tenderness. NEURO: Alert and oriented x 3, no motor deficits, gait steady, speech fluent. ASSESSMENT/PLAN: 1. Primary hypertension - ICD9: 401.9, ICD10: I10 (primary diagnosis) - good control - Recommended regular aerobic exercise. - Recommend home blood pressure monitoring, to bring results in on next visit - Goal of BP <130/80 - BASIC METABOLIC PNL 2. Depression, unspecified depression type - ICD9: 311, ICD10: F32.A Stable, will monitor mood, thoughts and behaviors 3. Hypothyroidism, unspecified type - ICD9: 244.9, ICD10: E03.9 - Instructed patient on importance of taking on an empty stomach either first thing in the morning or at bedtime. Stable - Continue current medications Fred Marks APRN.CNP DATE: November 01, 2021 TIME: 12:13 PM documented in this encounter [facility] Evaluation note No assessment inform ation available [facility] Work Phone: Evaluation note Diagnosis Primary hypertension- Primary Unspecified essential hypertension Depression, unspecified depression type Other specified hypothyroidism [facility] Knee strain, left, initial encounter- [facility] Diagnosis Thyroid storm- Primary Thyrotoxicosis without mention of goiter or other cause, with mention of thyrotoxic crisis or storm [facility]* Diagnosis Hyperthyroidism- Primary Thyrotoxicosis without mention of goiter or other cause, without mention of thyrotoxic crisis or storm [facility] Diagnosis Hyperthyroidism- Primary Thyrotoxicosis without mention of goiter or other cause, without mention of thyrotoxic crisis or storm Graves disease Toxic diffuse goiter without mention of thyrotoxic crisis or storm [facility] Diagnosis Hyperthyroidism- Primary Thyrotoxicosis without mention of goiter or other cause, without mention of thyrotoxic crisis or storm Graves disease Toxic diffuse goiter without mention of thyrotoxic crisis or storm [facility] Diagnosis Hyperthyroidism- Primary Thyrotoxicosis without mention of goiter or other cause, without mention of thyrotoxic crisis or storm Graves disease Toxic diffuse goiter without mention of thyrotoxic crisis or storm [facility]* Diagnosis Hyperthyroidism- Primary Thyrotoxicosis without mention of goiter or other cause, without mention of thyrotoxic crisis or storm Graves disease Toxic diffuse goiter without mention of thyrotoxic crisis or storm [facility] Other schizophrenia (HCC) Hyperthyroidism Thyrotoxicosis without mention of goiter or other cause, without mention of thyrotoxic crisis or storm Schizoaffective disorder (HCC) Schizoaffective disorder, unspecified condition Schizoaffective disorder, bipolar type (HCC)- Primary Schizoaffective disorder, unspecified condition Psychoactive substance abuse (HCC) Other, mixed, or unspecified nondependent drug abuse, unspecified Schizoaffective disorder, bipolar type (HCC)- Primary Schizoaffective disorder, unspecified condition Schizoaffective disorder, bipolar type (HCC) Schizoaffective disorder, unspecified condition Schizoaffective disorder, bipolar type (HCC)- Primary Schizoaffective disorder, unspecified condition Graves disease Toxic diffuse goiter without mention of thyrotoxic crisis or storm Graves disease Toxic diffuse goiter without mention of thyrotoxic crisis or storm Graves disease- Primary Toxic diffuse goiter without mention of thyrotoxic crisis or storm [facility] Other schizophrenia (HCC) Hyperthyroidism Thyrotoxicosis without mention of goiter or other cause, without mention of thyrotoxic crisis or storm Schizoaffective disorder (HCC) Schizoaffective disorder, unspecified condition Schizoaffective disorder, bipolar type (HCC)- Primary Schizoaffective disorder, unspecified condition Psychoactive substance abuse (HCC) Other, mixed, or unspecified nondependent drug abuse, unspecified Schizoaffective disorder, bipolar type (HCC)- Primary Schizoaffective disorder, unspecified condition Schizoaffective disorder, bipolar type (HCC) Schizoaffective disorder, unspecified condition Schizoaffective disorder, bipolar type (HCC)- Primary Schizoaffective disorder, unspecified condition Graves disease Toxic diffuse goiter without mention of thyrotoxic crisis or storm Graves disease Toxic diffuse goiter without mention of thyrotoxic crisis or storm Graves disease- Primary Toxic diffuse goiter without mention of thyrotoxic crisis or storm [facility] Other schizophrenia (HCC) Hyperthyroidism Thyrotoxicosis without mention of goiter or other cause, without mention of thyrotoxic crisis or storm Schizoaffective disorder (HCC) Schizoaffective disorder, unspecified condition Schizoaffective disorder, bipolar type (HCC)- Primary Schizoaffective disorder, unspecified condition Psychoactive substance abuse (HCC) Other, mixed, or unspecified nondependent drug abuse, unspecified Schizoaffective disorder, bipolar type (HCC)- Primary Schizoaffective disorder, unspecified condition Schizoaffective disorder, bipolar type (HCC) Schizoaffective disorder, unspecified condition Schizoaffective disorder, bipolar type (HCC)- Primary Schizoaffective disorder, unspecified condition Graves disease Toxic diffuse goiter without mention of thyrotoxic crisis or storm Graves disease Toxic diffuse goiter without mention of thyrotoxic crisis or storm Graves disease- Primary Toxic diffuse goiter without mention of thyrotoxic crisis or storm [facility]* Diagnosis Other schizophrenia (HCC) Hyperthyroidism Thyrotoxicosis without mention of goiter or other cause, without mention of thyrotoxic crisis or storm Schizoaffective disorder (HCC) Schizoaffective disorder, unspecified condition Schizoaffective disorder, bipolar type (HCC)- Primary Schizoaffective disorder, unspecified condition Psychoactive substance abuse (HCC) Other, mixed, or unspecified nondependent drug abuse, unspecified Schizoaffective disorder, bipolar type (HCC)- Primary Schizoaffective disorder, unspecified condition Schizoaffective disorder, bipolar type (HCC) Schizoaffective disorder, unspecified condition Schizoaffective disorder, bipolar type (HCC)- Primary Schizoaffective disorder, unspecified condition Graves disease Toxic diffuse goiter without mention of thyrotoxic crisis or storm Graves disease Toxic diffuse goiter without mention of thyrotoxic crisis or storm Graves disease- Primary Toxic diffuse goiter without mention of thyrotoxic crisis or storm [facility] Other schizophrenia (HCC) Hyperthyroidism Thyrotoxicosis without mention of goiter or other cause, without mention of thyrotoxic crisis or storm Schizoaffective disorder (HCC) Schizoaffective disorder, unspecified condition Schizoaffective disorder, bipolar type (HCC)- Primary Schizoaffective disorder, unspecified condition Psychoactive substance abuse (HCC) Other, mixed, or unspecified nondependent drug abuse, unspecified Schizoaffective disorder, bipolar type (HCC)- Primary Schizoaffective disorder, unspecified condition Schizoaffective disorder, bipolar type (HCC) Schizoaffective disorder, unspecified condition Schizoaffective disorder, bipolar type (HCC)- Primary Schizoaffective disorder, unspecified condition Graves disease Toxic diffuse goiter without mention of thyrotoxic crisis or storm Graves disease Toxic diffuse goiter without mention of thyrotoxic crisis or storm Graves disease- Primary Toxic diffuse goiter without mention of thyrotoxic crisis or storm [facility]* Diagnosis Other schizophrenia (HCC) Hyperthyroidism Thyrotoxicosis without mention of goiter or other cause, without mention of thyrotoxic crisis or storm Schizoaffective disorder (HCC) Schizoaffective disorder, unspecified condition Schizoaffective disorder, bipolar type (HCC)- Primary Schizoaffective disorder, unspecified condition Psychoactive substance abuse (HCC) Other, mixed, or unspecified nondependent drug abuse, unspecified Schizoaffective disorder, bipolar type (HCC)- Primary Schizoaffective disorder, unspecified condition Schizoaffective disorder, bipolar type (HCC) Schizoaffective disorder, unspecified condition Schizoaffective disorder, bipolar type (HCC)- Primary Schizoaffective disorder, unspecified condition Graves disease Toxic diffuse goiter without mention of thyrotoxic crisis or storm Graves disease Toxic diffuse goiter without mention of thyrotoxic crisis or storm Graves disease- Primary Toxic diffuse goiter without mention of thyrotoxic crisis or storm Hyperthyroidism Thyrotoxicosis without mention of goiter or other cause, without mention of thyrotoxic crisis or storm [facility] Diagnosis Other schizophrenia (HCC) Hyperthyroidism Thyrotoxicosis without mention of goiter or other cause, without mention of thyrotoxic crisis or storm Schizoaffective disorder (HCC) Schizoaffective disorder, unspecified condition Schizoaffective disorder, bipolar type (HCC)- Primary Schizoaffective disorder, unspecified condition Psychoactive substance abuse (HCC) Other, mixed, or unspecified nondependent drug abuse, unspecified Schizoaffective disorder, bipolar type (HCC)- Primary Schizoaffective disorder, unspecified condition Schizoaffective disorder, bipolar type (HCC) Schizoaffective disorder, unspecified condition Schizoaffective disorder, bipolar type (HCC)- Primary Schizoaffective disorder, unspecified condition Graves disease Toxic diffuse goiter without mention of thyrotoxic crisis or storm Graves disease Toxic diffuse goiter without mention of thyrotoxic crisis or storm Graves disease- Primary Toxic diffuse goiter without mention of thyrotoxic crisis or storm [facility] Additional Instructions You need to discuss with your upper caser whom your primary care physician is going to be in schedule follow-up. You should carry a list of your medications with you Your Depakote level today was less than 3. You need to make sure you are taking your medicines and you need to mention this value to your doctors.[facility] Work Phone: [facility] Work Phone: Summary Purpose Family History No Family History Records FoundNo Family History Records FoundNo Family History Records FoundNo Family History Records FoundNo Family History Records FoundNo Family History Records FoundNo Family History Records FoundNo Family History Records FoundNo Family History Records FoundNo Family History Records FoundNo Family History Records FoundNo Family History Records Found Advance Directives No Advanced Directives Records FoundDocuments on File Type Date Recorded Patient Transmission Superintendent Expl anation Advance Directives and Living Will Power of Grinder [employer] Plant Latest Code Status on File Code Status Date Activated Date Inactivated Comments Full Code 06/03/2019 9:34 AM Full Code 08/14/2018 12:52 AM 08/19/2018 3:49 PM Full Code 05/14/2018 8:21 AM 05/14/2018 5:04 PM Full Code 05/14/2018 8:21 AM 05/14/2018 8:21 AM Full Code 04/27/2018 10:26 PM 04/30/2018 3:19 PM Documents on File Type Date Recorded Patient Transmission Superintendent Expl anation Advance Directives and Livin g Will 11/12/2019 4:34 PM Guardianship Papers 10/31/2019 11:17 AM Latest Code Status on File Code Status Date Activated Date Inactivated Comments Full Code - Unverified 11/12/2019 8:22 PM 11/19/2019 4:57 PM Full Code - Unverified 10/20/2019 5:30 AM 10/30/2019 8:55 PM Documents on File Type Date Recorded Patient Transmission Superintendent Expl anation Advance Directives and Livin g Will 11/20/2019 2:01 PM Guardianship Papers 10/31/2019 11:17 AM Latest Code Status on File Code Status Date Activated Date Inactivated Comments Full Code 11/20/2019 3:19 PM 11/22/2019 9:26 PM Full Code - Unverified 11/12/2019 8:22 PM 11/19/2019 4:57 PM Documents on File Type Date Recorded Patient Transmission Superintendent Expl anation Advance Directives and Livin g Will 11/20/2019 2:01 PM Guardianship Papers 10/31/2019 11:17 AM Latest Code Status on File Code Status Date Activated Date Inactivated Comments Full Code 11/20/2019 3:19 PM 11/22/2019 9:26 PM Full Code - Unverified 11/12/2019 8:22 PM 11/19/2019 4:57 PM Full Code - Unverified 10/20/2019 5:30 AM 10/30/2019 8:55 PM Documents on File Type Date Recorded Patient Transmission Superintendent Expl anation Advance Directives and Livin g Will 12/26/2019 5:40 PM Guardianship Papers 10/31/2019 11:17 AM Guardianship Papers 12/19/2019 11:24 PM 07/2019 Latest Code Status on File Code Status Date Activated Date Inactivated Comments Full Code - Unverified 12/26/2019 8:50 PM 01/06/2020 6:4 8 AM Full Code 11/20/2019 3:19 PM 11/22/2019 9:26 PM Documents on File Type Date Recorded Patient Transmission Superintendent Expl anation Advance Directives and Livin g Will 11/06/2019 3:09 AM Guardianship Papers 10/31/2019 11:17 AM Latest Code Status on File Code Status Date Activated Date Inactivated Comments Full Code - Unverified 10/20/2019 5:30 AM 10/30/2019 8:55 PM Documents on File Type Date Recorded Patient Transmission Superintendent Expl anation Advance Directives and Livin g Will 10/20/2019 12:01 AM Advance Directive Response Recorded Date/ Time Living Will No August 24, 2021 8 :55pm Power of Grinder [employer] Plant No August 24, 2021 8:55pm Advance Directive Response Recorded Date/ Time Living Will No October 02, 2021 5:20pm Power of Grinder [employer] No October 02 5:20pm Documents on File Type Date Recorded Patient Transmission Superintendent Expl anation Guardianship Papers 12/19/2019 11:24 PM 07/2019 Guardianship Papers 10/31/2019 11:17 AM Date Activated Date Inactivated Comments 08/24/2023 3:08 PM Date Activated Date Inactivated Comments 08/24/2023 3:08 PM 08/24/2023 3:08 PM Date Activated Date Inactivated Comments 08/20/2023 11:02 AM 08/24/2023 3:01 PM Date Activated Date Inactivated Comments 08/18/2023 8:06 PM 08/20/2023 11:00 AM Date Activated Date Inactivated Comments 12/26/2019 8:50 PM 01/06/2020 6:48 AM Documents on File Type Date Recorded Patient Transmission Superintendent Expl anation Guardianship Papers 12/19/2019 11:24 PM 07/2019 Guardianship Papers 10/31/2019 11:17 AM Date Activated Date Inactivated Comments 08/24/2023 3:08 PM 09/25/2023 12:10 PM Date Activated Date Inactivated Comments 08/24/2023 3:08 PM 08/24/2023 3:08 PM Date Activated Date Inactivated Comments 08/20/2023 11:02 AM 08/24/2023 3:01 PM Date Activated Date Inactivated Comments 08/18/2023 8:06 PM 08/20/2023 11:00 AM Date Activated Date Inactivated Comments 12/26/2019 8:50 PM 01/06/2020 6:48 AM Discharge Instructions * Discharge Instr - Diet* Mraya Haas RN - 06/04/2019 2:36 PM EST ? Good nutrition is important when healing from an illness, injury, or surgery. Follow any nutrition recommendations given to you during your hospital stay. ? If you were given an oral nutrition supplement while in the hospital, continue to take this supplement at home. You can take it with meals, in-between meals, and/or before bedtime. These supplements can be purchased at most local grocery stores, pharmacies, and chain [employer]Fi-stores. ? If you have any questions about your diet or nutrition, call the hospital and ask for the dietitian. * Discharge Instr - KIRK* Marya Haas RN - 06/04/2019 2:36 PM EST Continuity of Care Form Patient Name: Aba Carlton : 2000 Admit date: 06/03/2019 Discharge date: Code Status Order: Full Code Advance Directives: Advance Care Flowsheet Documentation Date/Time Healthcare Directive Type of Healthcare Directive Copy in Chart Healthcare Agent Appointed Healthcare Agent's Name Healthcare Agent's Phone Number 06/03/19 1008 No, patient does not have an advance directive for healthcare treatment -- -- -- -- -- Admitting Physician: Sandor Holm DO PCP: No primary care provider on file. Discharging Nurse: Discharging Hospital Unit/Room#: 0441/0441-01 Discharging Unit Phone Number: Emergency Contact: Extended Emergency Contact Information Primary Emergency Contact: Soledad Little [address]: [address] [place] [address] [place] [address] [facility] Relation: Parent Past Surgical History: History reviewed. No pertinent surgical history. Immunization History: Immunization History Administered Date(s) Administered Tdap (Boostrix, Adacel) 08/13/2018 Active Problems: Patient Active Problem List Diagnosis Code Self-mutilation Z72.89 Overdose, intentional self-harm, initial encounter ([facility]) T50.902A Gabapentin overdose T42.6X1A Cluster B personality disorder ([facility]) F60.89 Schizoaffective disorder, bipolar type ([facility]) F25.0 Attention deficit hyperactivity disorder (ADHD), combined type F90.2 Cannabis dependence ([facility]) F12.20 Altered mental state R41.82 Acute alcoholic intoxication with complication ([facility]) F10.929 Schizoaffective disorder ([facility]) F25.9 Suicidal ideation R45.851 Pneumonia due to organism J18.9 Influenza A J10.1 Adenovirus infection B34.0 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[facility]) F20.1 Isolation/Infection: Isolation Droplet Patient Infection Status Infection Onset Added Last Indicated Last Indicated By Review Planned Expiration Resolved Resolved By INFLUENZA 06/03/19 06/03/19 06/03/19 Respiratory Virus PCR Panel 06/10/19 07/03/19 Adenovirus 06/03/19 06/03/19 06/03/19 Respiratory Virus PCR Panel Resolved C-diff Rule Out 06/03/19 06/04/19 C DIFF TOXIN/ANTIGEN (Ordered) 06/04/19 Isolation/Infection Melissa, RN Nurse Assessment: Last Vital Signs: BP 107/61 Pulse 109 Temp 98.2 F (36.8 C) Resp 16 Ht 5' 7 (1.702 m) Wt 138 lb (62.6 kg) SpO2 98% BMI 21.61 kg/m Last documented pain score (0-10 scale): Pain Level: 4 Last Weight: Wt Readings from Last 1 Encounters: 06/03/19 138 lb (62.6 kg) Mental Status: {IP PT MENTAL STATUS:} IV Access: { KIRK IV ACCESS:705181169} Nursing Mobility/ADLs: Walking {CHP DME ADLs:672799391} Transfer {CHP DME ADLs:386659701} Bathing {CHP DME ADLs:195721371} Dressing {CHP DME ADLs:049734583} Toileting {CHP DME ADLs:618743722} Feeding {CHP DME ADLs:692888375} Astrobiologist {CHP DME ADLs:537279290} Med Delivery { KIRK MED Delivery:310901444} Wound Care Documentation and Therapy: Elimination: Continence: Bowel: {YES / NO:} Bladder: {YES / NO:} Urinary Catheter: {Urinary Catheter:275700642} Colostomy/Ileostomy/Ileal Conduit: {YES / NO:} Date of Last BM: Intake/Output Summary (Last 24 hours) at 06/04/2019 1436 Last data filed at 06/04/2019 0658 Gross per 24 hour Intake 8 ml Output Net 2028 ml I/O last 3 completed shifts: In: 3956 [P.O.:900; I.V.:1128; IV Piggyback:1927] Out: - Safety Concerns: { KIRK Safety Concerns:084150604} Impairments/Disabilities: { KIRK Impairments/Disabilities:694223602} Nutrition Therapy: Current Nutrition Therapy: { KIRK Diet List:412070819} Routes of Feeding: {CHP DME Other Feedings:002942237} Liquids: {Cardiovascular Tech liquid thickness:40991} Daily Fluid Restriction: {CHP DME Yes amt example:157361187} Last Modified Barium Swallow with Video (Video Swallowing Test): {Done Not Done Date:} Treatments at the Time of Hospital Discharge: Respiratory Treatments: Oxygen Therapy: {Therapy; copd oxygen:99518} Ventilator: {[facility] Vent List:683591300} Rehab Therapies: {THERAPEUTIC INTERVENTION:2488116581} Weight Bearing Status/Restrictions: { CC Weight Bearin} Other Medical Equipment (for information only, NOT a DME order): {EQUIPMENT:271229606} Other Treatments: Patient's personal belongings (please select all that are sent with patient): {CHP DME Belongings:277440705} RN SIGNATURE: {Esignature:732091109} CASE MANAGEMENT/SOCIAL WORK SECTION Inpatient Status Date: Readmission Risk Assessment Score: Readmission Risk Risk of Unplanned Readmission: 16 Discharging to Facility/ Agency Name: Address: Phone: Fax: Dialysis Facility (if applicable) Name: Address: Dialysis Schedule: Phone: Fax: Home Sales Consultant/Offshore Wind Turbine Technician signature: {Esignature:066118699} PHYSICIAN SECTION Prognosis: {Prognosis:6698970200} Condition at Discharge: { Patient Condition:899377992} Rehab Potential (if transferring to Rehab): {Prognosis:3943187389} Recommended Labs or Other Treatments After Discharge: Physician Certification: I certify the above information and transfer of Aba Carlton is necessary for the continuing treatment of the diagnosis listed and that he requires {Admit to Appropriate Level of Care:61534} for {GREATER/LESS:640158242} 30 days. Update Admission H&P: {CHP DME Changes in HandP:944421456} PHYSICIAN SIGNATURE: {Esignature:874460322} documented in this encounter* Discharge Instr - AVS First Page* Cindy Nieto MD - 12/08/2019 3:59 PM EDT Follow up with Dr. Nieto on SundayJan 13 at 1:00 PM. * Discharge Instr - Care Coordination* Emerita Vidal MSW LISW-S - 11/28/2019 11:58 AM EDT documented in this encounter* Attachments The following attachments cannot be sent through Care Everywhere. * Dehydration ([place]) documented in this encounter* Discharge Instr - AVS First Page* Cindy Nieto MD - 10/29/2019 3:29 PM EDT Invega Sustenna 234mg IM first loading dose to be given on 10/29/2019, second loading dose of InvegaSustenna 156mg IM will be due on November 06, 2019. Maintenance dose of Invega Sustenna 156mg IM to be given 28 days later on December 04, 2019. To receive maintenance dose of Invega Sustenna 156mg IM every 28 days after this. Follow up with Dr. Nieto office on 12/10/19 at 11:00 AM. Call [phone] if you need to reschedule. If possible, have thyroid tests done at [facility] a few days before your appointment. Lab orders are in the computer. * Discharge Instr - Care Coordination* Emerita Vidal MSW LISW-S - 10/20/2019 4:[address] HEARINGS: Patient has been ordered into Assisted Outpatient Treatment (AOT) which among other things requirespatient to attend weekly court hearings. Patient's notification for the first review hearing is in his discharge paperwork and your [facility] outpatient case manager will review the program with you. Please plan to attend the review hearing on November 02 at 11:15 AM at the [facility] [address] [facility]. Located at [address] [place] [address] documented in this encounter History of Present Illness * Marya Haas RN - 06/04/2019 3:41 PM EST Patient discharged with all belongings, ambulatory, to private residence, via cab. Patient had discharge folder, and all questions asked were answered. * Oralia Clifford MS, RD, LD - 06/04/2019 2:29 PM EST Nutrition Assessment Type and Reason for Visit: Initial, Positive Nutrition Screen(Weight loss) Nutrition Recommendations: Send Ensure Enlive ONS with meals to help with unintentional weight loss. Obtain current/actual weight as able. Nutrition Assessment: Reports appetite has been very good, but did not eat breakfast this morning. States he has lost approximately 12 lbs over past 2 months - attributes this to walking a lot recently. Willing to receive ONS. Malnutrition Assessment: Malnutrition Status: No malnutrition Context: Social or environmental circumstances Findings of the 6 clinical characteristics of malnutrition (Minimum of 2 out of 6 clinical characteristics is required to make the diagnosis of moderate or severe Protein Calorie Malnutrition based on AND/ASPEN Guidelines): 1. 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 Weight Loss-5% loss or greater, (x 2 months per pt) 3. Fat Loss-No significant subcutaneous fat loss, 4. Muscle Loss-No significant muscle mass loss, 5. Fluid Accumulation-No significant fluid accumulation, 6. Beet End Supervisor Strength-Not measured Nutrition Risk Level: Low Nutrient Needs: Estimated Daily Total Kcal: 0352-9725 kcals/day Estimated Daily Protein (g): 60-75 gm/day Nutrition Diagnosis: Problem: Unintended weight loss Etiology: related to (Increased energy expenditure) ? Signs and symptoms: as evidenced by Patient report of, Weight loss Objective Information: Wound Type: None Current Nutrition Therapies: Oral Diet Orders: General Anthropometric Measures: Ht: 5' 7 (170.2 cm) Current Body Wt: 138 lb (62.6 kg)(stated) Usual Body Wt: 150 lb (68 kg)(stated) % Weight Change: 8% loss x 2 months per pt report Regina Body Wt: 148 lb (67.1 kg), % Regina Body 93% BMI Classification: BMI 18.5 - 24.9 Normal Weight Nutrition Interventions: Continue current diet, Start ONS Continued Inpatient Monitoring, Education Not Indicated Nutrition Evaluation: Evaluation: Goals set Goals: Meet greater than 50% of estimated nutrient needs with PO. Monitoring: Meal Intake, Supplement Intake, Weight Contact Number: [phone] * Atnon Saba, PT - 06/04/2019 1:45 PM EST Physical Therapy DATE: 06/04/2019 NAME: Aba Carlton : 2000 Patient not seen this date for Physical Therapy due to: [] Blood transfusion in progress [] Hemodialysis [] Patient Declined [] Spine Precautions [] Strict Bedrest [] Surgery/ Procedure [] Testing [] Other [x] PT being discontinued at this time. Patient independent. No further needs. [] PT being discontinued at this time as the patient has been transferred to palliative care. No further needs. ANTON SABA PT * Radha Quintanilla RCP - 06/04/2019 1:03 PM EST Smoking Cessation - topics covered [] Health Risks [] Benefits of Quitting [] Smoking Cessation [] Patient has no history of tobacco use per note in significant history. [] Patient is former smoker per note in significant history. Patient quit in [] No need for tobacco cessation education. [] Booklet given [] Patient verbalizes understanding. [] Patient denies need for tobacco cessation education. [] Unable to meet with patient today. Will follow up as able. As patient has altered mental status, will defer tobacco cessation education at this time. RADHA QUINTANILLA 1:03 PM * Manuel Vu PA-C - 06/04/2019 12:57 PM EST [facility] IN-PATIENT SERVICE [facility] Progress Note 06/04/2019 12:57 PM Name: Aba Carlton Acct: [id number] Room: [facility] Day: 1 Admit Date: 06/03/2019 3:45 AM PCP: No primary care provider on file. Code Status: Full Code Subjective: C/C: Chief Complaint Patient presents with Other Whole body hurts, especially testicals and brainstem, pt believes it is from lack of oxygen Interval History Status: significantly improved. Pt reporting significant improvement in congestion, cough and shortness of breath. He is very hyperactive on evaluation. He expresses desire to go home stating that he feels great. Remains afebrileand hemodynamically stable. Labs reviewed. Case discussed with nursing. Brief History: Aba Carlton is a 19 y.o. male with past medical history significant for paranoid schizophrenia, depression. Patient presented to the emergency department complaining of cough, fevers, chills, body aches. Patient reports that symptoms started approximately 5 days ago with cough. Cough has progressively worsened. Cough is associated with sinus congestion. Patient states that he is coughing up and blowing out yellow dark-colored mucus. Complaining of associated chills, fevers, sweats, generalized bodyaches. No exacerbating or relieving factors. ED evaluation was significant for right lower lobe pneumonia identified on chest x-ray. Hemoglobin 11.4. Potassium 3.6. Sodium 131. Patient been medicine for further care for community-acquired pneumonia. Respiratory virus panel positive for influenza A and adenovirus. Pt out of the window for tamiflu. Started on antibiotics for infiltrate seen on CXR. Pt has a history of paranoid schizophrenia, he has been out of his medication for several months. Psych was consulted and he was resumed on Invega. He improved significantly with supportive treatment and abx. He was deemed appropriate for discharge home. Review of Systems: Constitutional: negative for chills, fevers, sweats Respiratory: negative for cough, dyspnea on exertion, shortness of breath, wheezing Cardiovascular: negative for chest pain, chest pressure/discomfort, lower extremity edema, palpitations Gastrointestinal: negative for abdominal pain, constipation, diarrhea, nausea, vomiting Neurological: negative for dizziness, headache Medications: Allergies: Allergies Allergen Reactions Dust Mite Extract Other (See Comments) Watery eyes and sniffles Grass Extracts [Gramineae Pollens] Other (See Comments) Watery eyes and sniffles Current Meds: Scheduled Meds: sodium chloride flush 10 mL Intravenous 2 times per day enoxaparin 40 mg Subcutaneous Daily ipratropium-albuterol 1 ampule Inhalation Q4H WA azithromycin 500 mg Intravenous Q24H And cefTRIAXone (ROCEPHIN) IV 1 g Intravenous Q24H oxymetazoline 1 spray Each Nostril BID paliperidone 3 mg Oral Daily Continuous Infusions: sodium chloride 100 mL/hr at 06/04/19 0917 PRN Meds: sodium chloride flush, magnesium hydroxide, ondansetron, nicotine, albuterol, acetaminophen, dextromethorphan-guaiFENesin, pseudoephedrine, LORazepam Data: Past Medical History: has a past medical history of Depression and Paranoid schizophrenia (HCC). Social History: reports that he has been smoking cigarettes. He has a 2.50 pack- year smoking history. He has never used smokeless tobacco. He reports current alcohol use. He reports current drug use.Drug: Marijuana. Family History: Family History Problem Relation Age of Onset No Known Problems Mother Alcohol Abuse Father Diabetes Paternal Grandmother Schizophrenia Paternal Grandmother Alcohol Abuse Paternal Grandfather Coronary Art Dis Paternal Grandfather Vitals: BP 107/61 Pulse 109 Temp 98.2 F (36.8 C) Resp 16 Ht 5' 7 (1.702 m) Wt 138 lb (62.6 kg) SpO2 98% BMI 21.61 kg/m Temp (24hrs), Av.7 F (37.1 C), Min:98.2 F (36.8 C), Max:99.8 F (37.7 C) No results for input(s): POCGLU in the last 72 hours. I/O (24Hr): Intake/Output Summary (Last 24 hours) at 06/04/2019 1257 Last data filed at 06/04/2019 0658 Gross per 24 hour Intake 2027 ml Output Net 2027 ml Labs: Hematology: Recent Labs 06/03/19 0548 06/04/19 0534 WBC 6.3 7.5 RBC 4.01* 4.00* HGB 11.4* 11.4* HCT 34.1* 34.6* MCV 85.0 86.5 MCH 28.4 28.5 MCHC 33.4 32.9 RDW 12.3 12.7 PLT 149 148 MPV 9.9 10.6 INR 1.1 -- Chemistry: Recent Labs 06/03/19 0548 06/04/19 0534 NA 131* 140 K 3.6* 4.0 CL 99 106 CO2 22 22 GLUCOSE 141* 105* BUN 16 6 CREATININE 0.62* 0.40* ANIONGAP 10 12 LABGLOM >60 >60 GFRAA >60 >60 CALCIUM 8.1* 8.0* No results for input(s): PROT, LABALBU, LABA1C, I3ADXNR, Z7HXOIS, FT4, TSH, AST, ALT, LDH, GGT, ALKPHOS, LABGGT, BILITOT, BILIDIR, AMMONIA, AMYLASE, LIPASE, LACTATE, CHOL, HDL, LDLCHOLESTEROL, CHOLHDLRATIO, TRIG, VLDL, SOW44MS, PHENYTOIN, PHENYF, URICACID, POCGLU in the last 72 hours. ABG: Lab Results Component Value Date FIO2 NOT REPORTED 2018 Lab Results Component Value Date/Time SPECIAL NOT REPORTED 06/03/2019 12:20 PM Lab Results Component Value Date/Time CULTURE NORMAL RESPIRATORY SALOME HEAVY GROWTH 06/03/2019 12:20 PM Radiology: Xr Chest Standard (2 Vw) Result Date: 06/03/2019 Right lower lung lobe upper mild ill-defined consolidation consistent with pneumonia. Physical Examination: General appearance: alert, cooperative and no distress Mental Status: oriented to person, place and time and normal affect Lungs: clear to auscultation bilaterally, normal effort Heart: regular rate and rhythm, no murmur Abdomen: soft, nontender, nondistended, normal bowel sounds, no masses, hepatomegaly, splenomegaly Extremities: no edema, redness, tenderness in the calves Skin: no gross lesions, rashes, induration Assessment: Hospital Problems Last Modified POA * (Principal) Pneumonia due to organism 06/03/2019 Yes Schizoaffective disorder, bipolar type (HCC) (Chronic) 06/03/2019 Yes Attention deficit hyperactivity disorder (ADHD), combined type (Chronic) 06/03/2019 Yes Influenza A 06/03/2019 Yes Adenovirus infection 06/03/2019 Yes Hyponatremia 06/03/2019 Yes Hypokalemia 06/03/2019 Yes 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HCC) 06/03/2019 Yes Plan: 1. Bacterial pneuomnia superimposed on influenza A: complete course of abx. 2. Hyponatremia resolved 3. Restart invega 4. Discharge home Manuel Vu PA-C 06/04/2019 12:57 PM * Babita Adorno RN - 06/04/2019 4:45 AM EST Patient pulled his telemetry off and is refusing to wear it. Explained to patient that with his episodes of elevated HR that it is in his best interest to wear it so we can keep an eye on him. Patient continue to refuse. * Judy Sky RN - 06/03/2019 7:01 PM EST Pt requesting to shower, nurse explained need to control heart rate prior to taking a shower. Verbalized understanding. * Sheng Persaud RCP - 06/03/2019 5:02 PM EST Noticed tachycardia and irregularities in patient's pulse whenb I took it manually. Notified CRISTAL Pierre. * Aleena Morfin OT - 06/03/2019 3:52 PM EST Occupational Therapy Not Seen Note DATE: 06/03/2019 Name: Aba Carlton : 2000 Patient not available for Occupational Therapy due to: Pt independent with functional mobility and functional tasks. Pt with no OT acute care needs at this time, will defer OT eval. Per pt and RN, pt IND. Pt reports pt IND up to bathroom with no concernsfor balance or safety. Pt educated in ability to re-order therapy if functional status changes. Pt in agreement. RN notified Next Scheduled Treatment: Defer OT evaluation * Radha Quintanilla RCP - 06/03/2019 2:41 PM EST Smoking Cessation - topics covered [] Health Risks [] Benefits of Quitting [] Smoking Cessation [] Patient has no history of tobacco use per note in significant history. [] Patient is former smoker per note in significant history. Patient quit in [] No need for tobacco cessation education. [] Booklet given [] Patient verbalizes understanding. [] Patient denies need for tobacco cessation education. [x] Unable to meet with patient today. Will follow up as able. RADHA QUINTANILLA 2:41 PM * Judy Sky RN - 06/03/2019 12:57 PM EST Secure messaged Sully FOFANA regarding mother's request for psych eval and possible re-establishmentof medications prior to d/c. Manuel Talley PA to place order for eval. * Judy Sky RN - 06/03/2019 12:24 PM EST Left message for pt mother Soledad at pt request, call back number left. * Judy Sky RN - 06/03/2019 9:30 AM EST Pt arrived to floor from ED via wheelchair, pt is A/O x4, fidgety but answers questions appropriately. Reports pain 3/10 headache/sorethroat. Admission assessments completed. Tachycardic, normotensive BP, T 96.8F oral, RR20. Paulette piotr given. SCDs applied, tele monitor applied. Oriented to room andcall light. Pt requests to remain in his clothing instead of changing into gown. Pt denies further needs from nurse at this time. Call light in reach. Bed in lowest locked position. documented in this encounter* Manuel Peralta RN - 11/19/2019 2:51 PM EDT 1435 - After visit summary, including discharge medication list and follow up appointments, thoroughly discussed with pt and pt verbalized understanding and denied any questions. Pt left with a copy of the after visit summary, copy of the safety plan, and all personal belongings. Pt denies suicidalor homicidal ideation. Pt discharged. * Leta Cornejo CTRS - 11/19/2019 1:15 PM EDT PT refused to attend due to being DC and wanting to eat ice cream. * Fabienne Bautista CNP - 11/19/2019 11:28 AM EDT CONSULT NOTE Patient Name: Aba Carlton Admit Date: 11/12/2019 MR #: [id number] : 2000 Physicians: Adrienne Arcos CNP (Family); Mariam Santamaria CNP (Referring) Assessment and Plan: ASSESSMENT: Hyperthyroidism: Patient with hx of hyperthyroidism noted on TFTs since at least 03/03,admitted for treatment of schizophrenia. He has multiple symptoms of hyperthyroidism. Patient was hospitalized 10/19/19, diagnosed with Graves' disease and Danilo's thyroiditis. Patient treated with40 mg daily and SSKI gtt when hospitalized in early October. After discharge he does not appear to have taken thyroid medications. PLAN: 11/13 Continue methimazole 40 mg daily. Will need long-term outpatient follow up. 11/16: Continue methimazole 40mg daily. Continue to assess for opportunity to ask patient to be agreeable to a repeat blood draw to recheck free T4. Continue propanolol 10mg BID. 11/18: Patient was in agreement for a repeat lab draw today. Will check TSH and FT4 this am. Chief Complaint/Reason for Visit: hyperthyroidism History of Present Illness: Aba Carlton is a 19 y.o. y/o male admitted from ER with history of schizophrenia with suicidal thoughts, disorganized thoughts and behavior and Graves' disease. He was found to be severely hyperthyroid and consultation was requested since we assisted in his care in early October 2019. He reports weight loss, heat intolerance and tremor. No dysphagia or double vision. He isnot able to contribute much to his medical history at this time. Review of previous labs shows he had evidence of elevated TFTs since at least 03/03. He does not report ever being treated for hyperthyroidism. 11/16: According to nursing patient continues to be highly irritable. He refused a blood draw this morning to recheck free T4 level. He has been aggressive and irritable towards staff over the last 24 hours. Remaining review of symptoms and physical exam were deferred secondary to this today. Tachycardia slowly improving. 11/18: Patient resting quietly in bed. He is feeling fairly well. He is calm and cooperative. He is in agreement for routine lab testing today, to further evaluate his current thyroid function tests. Lab review: 11/12/19: TSH: <0.01; Free T4: 6.9 11/06/19: TSH: <0.01; Free T4: 6.4 10/30/19: Free T4: 2.6 10/27/19: Free T4: 2.9 10/24/19: Free T4: 5.1 10/21/19 Na 141, K 4.1, creat 0.59,AST 29, ALT 56, WBC 8.81, Hgb 12.2, Hct 38.1, Plt 231k, TSH <0.01, FT4>8.0, FT3-24.5 10/19/19: TSI: 5.0; TPO: 278.1 05/14/18 TSH<0.01, FT4--4.73 03/06/18 TSH <0.01, FT4--3.49 History: Past Medical History: Diagnosis Date ADHD Hypertension Hyperthyroidism 10/20/2019 Hyperthyroidism Hyperthyroidism Schizo affective schizophrenia (HCC) Schizoaffective disorder (HCC) 10/20/2019 History reviewed. No pertinent surgical history. Family History Family history unknown: Yes Social History Socioeconomic History Marital status: Single Spouse name: Not on file Number of children: Not on file Years of education: Not on file Highest education level: Not on file Occupational History Not on file Social Needs Financial resource strain: Not on file Food insecurity Worry: Not on file Inability: Not on file Transportation needs Medical: Not on file Non-medical: Not on file Tobacco Use Smoking status: Current Every Day Smoker Packs/day: 1.00 Years: 5.00 Pack years: 5.00 Smokeless tobacco: Never Used Substance and Sexual Activity Alcohol use: Not Currently Drug use: Yes Types: Marijuana Comment: I don't even smoke pot monthly Sexual activity: Not Currently Lifestyle Physical activity Days per week: Not on file Minutes per session: Not on file Stress: Not on file Relationships Social connections Talks on phone: Not on file Gets together: Not on file Attends restorationist service: Not on file Active member of club or organization: Not on file Attends meetings of clubs or organizations: Not on file Relationship status: Not on file Other Topics Concern Not on file Social History Narrative Not on file Allergy Information: I have reviewed the patient's allergies. Grass pollen-red top, standard and Mite extract Home Medications: Hospital Medications: Scheduled Meds: ipratropium-albuteroL 3 mL Inhalation Q4H IMER methIMAzole 40 mg Oral Daily nicotine 1 patch Transdermal Daily paliperidone 6 mg Oral QAM propranoloL 10 mg Oral Q12H IMER Continuous Infusions: PRN Meds:.albuterol, aluminum-magnesium hydroxide-simethicone, benztropine, haloperidoL OR haloperidol lactate, hydrOXYzine, ibuprofen, magnesium hydroxide, traZODone Review of Systems: The following system(s) were reviewed and pertinent findings noted: Review of Systems Constitutional: Negative for appetite change, fatigue and unexpected weight change. HENT: Negative for trouble swallowing and voice change. Eyes: Negative for pain, redness and visual disturbance. Respiratory: Negative for shortness of breath. Cardiovascular: Negative for chest pain and palpitations. Gastrointestinal: Negative for constipation and diarrhea. Endocrine: Positive for heat intolerance. Negative for cold intolerance. Musculoskeletal: Negative for neck pain. Neurological: Negative for tremors. Psychiatric/Behavioral: Positive for behavioral problems, confusion and sleep disturbance. The patient is not nervous/anxious. Physical Examination: Vital Signs: BP 128/79 (BP Location: Right arm, Patient Position: Standing) Pulse 70 Temp 98.1 F (36.7 C) (Oral) Resp 16 Ht 5' 7 Wt 60.8 kg (134 lb) SpO2 99% BMI 20.99 kg/m Physical Exam Constitutional: He is oriented to person, place, and time. He appears well- developed and well-nourished. HENT: Head: Normocephalic and atraumatic. No exophthalmos or lid lag Eyes: Pupils are equal, round, and reactive to light. Conjunctivae and EOM are normal. No scleral icterus. Neck: Normal range of motion. Neck supple. Thyromegaly present. Cardiovascular: Normal rate, regular rhythm and normal heart sounds. No murmur heard. Pulmonary/Chest: Effort normal and breath sounds normal. No respiratory distress. He has no wheezes. He has no rales. Abdominal: He exhibits no distension. Musculoskeletal: General: No edema. Neurological: He is alert and oriented to person, place, and time. No cranial nerve deficit. Skin: Skin is warm. No erythema. Psychiatric: He has a normal mood and affect. His speech is normal. His affect is not inappropriate. He is hyperactive. He is not actively hallucinating. Thought content is delusional. Thought content is not paranoid. Cognition and memory are not impaired. He expresses inappropriate judgment. Laboratory and Additional Data Reviewed: Laboratory 11/19/19 11:28 AM Transcriptions 11/19/19 11:28 AM No results found for: HGBA1C Glucose (mg/dL) Date Value 11/06/2019 93 Creatinine (mg/dL) Date Value 11/06/2019 0.62 Lab Results Component Value Date CHOL 105 10/19/2019 TRIG 101 10/19/2019 HDL 33 (L) 10/19/2019 LDLCALC 52 10/19/2019 Lab Results Component Value Date TSH <0.01 (L) 11/19/2019 T4, Free Date Value Ref Range Status 11/19/2019 3.7 (H) 0.7 - 1.7 ng/dL Final Lab Results Component Value Date WBC 11.54 (H) 11/06/2019 HGB 12.3 (L) 11/06/2019 HCT 37.4 (L) 11/06/2019 MCV 85.0 11/06/2019 PLT 256 11/06/2019 This SmartLink has not been configured with any valid records. This SmartLink has not been configured with any valid records. Thank you for this consultation, we will continue to follow this patient with you. Electronically signed by Fabienne MURO 11/18/2010:28 AM * Nick Azevedo RD - 11/19/2019 10:11 AM EDT Nutrition Care Follow Up Monitoring and Evaluation: PO intake was 75% or greater at most meals Nutrition Diagnosis: Inadequate oral intake related to hyperthyroidism as evidenced by hunger extreme. Resolved Nutrition Intervention: Continue Medical Food Supplement Nutrition Prescription: Diet: regular Oral nutrition supplement: BOOST+ Nutrition Goals: PO intake > 75% most meals Start Date:11/19/2019 Expected End Date:11/25/2019 Nutrition Education: No needs at this time Assessment: Pertinent clinical information: hyperthyroidism(poor medical compliance) Current weight: 60.8 kg (134 lb) Body mass index is 20.99 kg/m . Current diet order: regular Recent intake: 75%. Current intake Likely meets estimated needs. Patient/family comments: selecting menu Difficulty Chewing/Swallowing: No Skin Integrity: Intact GI Function: WNL Physical Appearance: no change from initial assessment Labs: No results for input(s): NA, K, BICARB, CL, GLUCOSE, BUN, CREATININE, MG, PHOS in the last 72hours. Scheduled Meds: ipratropium-albuteroL 3 mL Inhalation Q4H IMER methIMAzole 40 mg Oral Daily nicotine 1 patch Transdermal Daily paliperidone 6 mg Oral QAM propranoloL 10 mg Oral Q12H IMER Continuous Infusions: Estimated Energy Needs Total Energy Estimated Needs: 2400kcal Method for Estimating Needs: 40kcal/kg Total Protein Estimated Needs: 75gm Method for Estimating Needs: 1.2gm/kg [place] Azevedo MS, JEFFRY, LD Office * Leta Cornejo, HAND DEVELOPER - 11/19/2019 9:15 AM EDT [id number] Goal Group: PT brought self to group, dressed but shirt on inside out, to which pt was not concerned with. PT restless and watchful throughout group, pacing in the group room or leaving to walk the unit and then return. Pt often looking and checking view outside the group room windows. PTdenied that he was anxious or fearful. PT cited that he was feeling great this date and ready to go home. PT vague as to why he was prepared for DC. PT cited goal for the day of BE discharged because I have been here going on 6 days and I want to get outside and get some vitamin D. PT voices that he will be compliant with medication when DC and pt reminded that he is apart of AOT program and needs to do so. * Jennifer Ortiz RN - 11/19/2019 2:24 AM EDT 0200 Pt resting quietly in bed with eyes closed, resp even.15 min checks maintained for pt safety. 0220 Pt approached this mortgage loan underwriter at the nurse's station asking for a hot meal. Explained to pt thatthe hot meals were for late admissions that had not eaten in awhile. Pt then asked to adjust his breakfast to extra pancakes and niuean toast and 4 syrups. Pt was told that I would send a message to dietary. Pt dinot ask for a snack at this time. Pt returned to his room. 0430 Pt resting quietly in bed with eyes closed, resp even.15 min checks maintained for pt safety. 0630 Pt has rested ~ 7.5 hrs tonight. Pt currently resting quietly in bed with eyes closed, resp even.15 min checks maintained for pt safety. * Emerita Santamaria CNP - 11/18/2019 5:15 PM EDT Hospital Medicine Inpatient Consult Follow-up 11/18/2019 Emerita Santamaria CNP Patient: Aba Carlton Date of : 2000 (19 y.o.) PCP: Adrienne Arcos CNP Referring Provider: Carey Goldman MD Consult: Lanette Cordon MD: Hospitalist assistance with medical management Of note, this patient was admitted to [facility] following the declaration of aNational State of Emergency due to the COVID-19 pandemic, as issued by the street railway line installer on 06/27/2019. ASSESSMENT/PLAN: Principal Problem: Schizoaffective disorder, bipolar type (HCC) Active Problems: Hyperthyroidism Psychoactive substance abuse (HCC) ASSESSMENT/PLAN: Principal Problem: Schizoaffective disorder, bipolar type ([facility]) Active Problems: Hyperthyroidism Psychoactive substance abuse ([facility]) Hyperthyroidism Assessment & Plan A: Hyperthyroidism, probable Graves Disease, diagnosed earlier this month. Under the care of Dr. Nieto. Patient is again in denial that he has a thyroid problem and has refused medications as an outpatient. TSH <0.01 and free T4 6.9 at admission. Pulse currently in the 130's. Agitation, hungry and thirsty. P: Resume medications. Re-consult Dr. Nieto for endocrine management. Provide between meal snacks and boost for pt due to high metabolism and feeling hungry Monitor HR carefully, encourage pt to take medications. 11/13 Trinity is much calmer, heart rate did improved into the 80's. He is taking his thyroid medications. Feels better since he is getting more to eat. 11/17 Feels short of breath and requesting breathing treatments. Per RT he is using assesory muscles to breath. Will repeat chest xray. First chest xray shows possible bronchitis. Chest xray showed no acute process. Pt pacing, asking the same questions over and over. Does not seem to understand answers Seems more agitated and pacing over the last day. SUBJECTIVE: History Since Last Visit: calmer Current Scheduled Meds: ipratropium-albuteroL 3 mL Inhalation Q4H IMER methIMAzole 40 mg Oral Daily nicotine 1 patch Transdermal Daily paliperidone 6 mg Oral QAM propranoloL 10 mg Oral Q12H IMER Review of Systems: All other systems reviewed and negative other than HPI OBJECTIVE: Physical Examination: Vital Signs: BP 102/66 (BP Location: Right arm, Patient Position: Lying) Pulse 98 Temp 97.7 F (36.5 C) (Infrared) Resp 16 Ht 5' 7 Wt 60.8 kg (134 lb) SpO2 96% BMI 20.99 kg/m General Appearance: Alert, well appearing, and in no acute distress. HEENT: Head - Normocephalic, atraumatic. Eyes - AKOSUA bilaterally and EOMI. Ears - normal external appearance, hearing intact. Nose - normal, no erythema. Throat - mucous membranes moist, pharynx without lesions. Neck: Supple, trachea midline. Cardiovascular: S1, S2 normal. No murmurs, rubs, clicks or gallops appreciated. No pedal edema. Respiratory: Lungs clear to auscultation, no wheezes, rales or rhonchi heard. Abdomen: Soft, non-tender, normal bowel sounds, non-distended, no masses or organomegaly appreciated. Neurological: Grossly normal motor and sensory exam. No focal deficits. Musculoskeletal: No joint tenderness, deformity or swelling. Skin: Normal coloration and turgor. No rashes. Psych: Alert, oriented x 2. Calmer mood and affect. Laboratory and Additional Data Reviewed: Results/Medications Reviewed 11/18/19 5:15 PM: CULTURES: Reviewed 11/18/19 5:15 PM Radiology/Imaging: Reviewed 11/18/19 5:15 PM * Emerita Vidal MSW LISW-S - 11/18/2019 4:25 PM EDT Patient reviewed with Dr. Goldman. Patient reports his mood is fine. Patient has been attending groups to this point. Behavior per nursing cooperative and compliant with medications. Follow up appointments scheduled with [facility] and on AVS. environmental services technician continues to follow. * Fabienne Posada, CRISTAL - 11/18/2019 3:54 PM EDT 1550 Pt at nurse's station, wide eyed, states I didn't need an x-ray of my chest. I need an x-ray of mythroat.... Since I became a man, when my balls dropped..... I have been having trouble with my throat. Conversation bizarre, Pt states that he is having trouble swallowing food since he became a man. This nurse redirecting Pt to the 2 topics he is discussing not being connected. Pt voicing frustration, advised Pt he could talk to the SURGICAL GARMENT FITTER tomorrow when she returns. Pt then eating fresh fruit with no issues. 2099 Pt up and about the unit remains wide eyed, watchful. Smiling inappropriately at times, as if responding to internal stimulus. Pt denies having any hallucinations. 2109 Pt given Trazodone 50 mg PO and Vistaril 50 mg Po for sleep and anxiety as requested. 2244 Pt resting quietly in bed at this time. * Carey Goldman MD - 11/18/2019 3:27 PM EDT Psychiatry Progress Note Patient Name: Aba Calrton Admit Date: MR #: [id number] : 2000 Perpetual Assessment Aba Carlton is a 19 y.o. male presenting with flor and psychosis and thyrotoxicosis due to non-compliance with outpatient treatment. Diagnosis & Plan/Recommendations PRINCIPAL DIAGNOSIS: Schizoaffective disorder, bipolar type (HCC) Endocrine Hyperthyroidism Assessment & Plan A: Hyperthyroidism, probable Graves Disease, diagnosed earlier this month. Under the care of Dr. Nieto. Patient is again in denial that he has a thyroid problem and has refused medications as an outpatient. TSH <0.01 and free T4 6.9 at admission. Pulse currently in the 130's P: Resume medications. Re-consult Dr. Nieto for endocrine management. Repeat extensive education previously given when patient is receptive. Other * Schizoaffective disorder, bipolar type (HCC) Assessment & Plan A: Patient was released from the hospital on 10-30-2019 on the AOT program with Invega Sustenna, first loading dose on board, in stable condition. He received his second loading dose of 156 mg IM on 11-05-2019. Non- compliant with oral medications, including endocrine meds for treatment of hyperthyroidism. He returns in acute psychosis with flor for court ordered hospitalization. He is calmer today but without insight. P: Add oral Invega 6 mg and resume thyroid medications Unpredictable precautions Individual and group counseling Change prn medications to Geodon, as he seemed to respond well to it last hospital stay. Send for records from [facility] with grandparents and AOT program New internal medicine consult for physical exam and medical management Lab and radiology studies as appropriate Comorbid issues impacting my care plan include thyrotoxicosis. Following for agitation, racing thoughts, poor insight, poor judgment, paranoid delusions Interval History: Aba continues to announce that he has been ready to go home from the beginning. He is able to control his temper and he is taking his medications here. He denies all psychiatric symptoms. Guardianship paperwork completed. Mental status has improved since admission. He denies suicidal and homicidal thinking. He will need close monitoring as an outpatient. Review of Systems: Constitutional, cardiac, pulmonary, neurologic, musculoskeletal, GI and systems reveiwed and negative except as noted above Physical Examination: Vital Signs: BP 102/66 (BP Location: Right arm, Patient Position: Lying) Pulse 98 Temp 99.2 F (37.3 C) (Oral) Resp 16 Ht 5' 7 Wt 60.8 kg (134 lb) SpO2 96% BMI 20.99 kg/m Mental Status Evaluation: General Appearance & Behavior: age appropiate, defensive and demanding Grooming & Hygiene: neat and clean Psychomotor Activity: no psychomotor abnormalities or muscle atrophy noted Gait & Station stable gait and ability to rise from bed/chair without assistance Speech: normal rate, rhythym, volume, and spontaneity Flow of Thought: perseveration Thought Associations: Intact Content of Thought: No evidence of SI/HI and obsessions Mood: fine Affect: irritable Insight: poor Judgment: poor Orientation: alert and oriented to person, place, time, and circumstances Memory: intact recent and remote Attention: adequate Concentration: reduced Language: fluent Fund of Knowledge: estimated average intelligence Laboratory and Additional Data Reviewed: Laboratory 11/18/19 3:40 PM Medications 11/18/19 3:40 PM Transcriptions 11/18/19 3:40 PM Treatment options and alternatives reviewed with patient. Risks, benefits, side effects of all psychiatric medications discussed with patient and informed consent obtained. All questions were answered. Carey Goldman MD 11/18/2019 3:27 PM * Lilly Ta CTRS - 11/18/2019 1:00 PM EDT Recreational Therapy: Pt attended group learning new leisure outlet of 7-up, requiring sequencing, card recognition and some strategizing. Pt was able to separate cards into suits, after initial teaching pt was independent with play. At times needed redirected to task as he appeared distracted by unseen stimuli. Pt left group on 3 occasions to get snacks. * Leta Cornejo CTRS - 11/18/2019 9:05 AM EDT Pt resting soundly at foot of bed when approached for group. PT did not wake to being addressed. * Meghann Zimmerman LPN - 11/18/2019 8:42 AM EDT Presents as calm, controlled and cooperative. Depressed, dull, mood/affect. Eye contact is fair to poor. Pts words are incongruent w/ his mood/affect. Reports feeling Great.' Denied experiencing SI/HI/A/V/H. Contracted for safety. Reports sleeping well, however, does not feel rested. Appetite goodw/ breakfast, med compliant w/ AM med regimen. Denied having any questions regarding meds/regimen. Reports plans to complete shower at a later time this AM. Necessities provided. Pt has been reassured staff are here for support and or needs in which might arise throughout his day. Receptive. 10:45 Pt had just completed his shower and requested RT tx after completing task. RT in seeing pt for tx per pt request d/t wheezing. 10:58 Administered Atarax 50mg PO for anxiety relief. Pt has been encouraged to sit quietly in lounge. Mildly receptive. 11:40 Atarax was effective as pt is feeling less anxious and more calm at this time. Spending time in the lounge at this time. Drink and snack provided, stated, Thank you. 11:47 Pt just stated to Lora Baires RN Will you please let me know when therapy is? I'm going to [facility] now. 13:00 Attending therapy group. Just prior to attending pt wanted a snack, this mortgage loan underwriter took pt to the kit door asking what he would like to eat. Pt had difficulty deciding, therefore, since it was time for group, this mortgage loan underwriter suggested he attend group and to seek staff out after group to get his snack. Pt was receptive and went to group. 13:27 Left group to retrieve his snack. Provided by Lora Baires RN. 14:55 Radiology staff in w/ pt. Pt is cooperative and following directions accordingly. 15:10 RT here to see pt. * Ghulam Garcia RN - 11/18/2019 1:03 AM EDT 0100 Orders and lab work reviewed, patient resting quiet in bed, eyes closed, resp even 0615 Has rested quiet overnight, appears to have slept 7-8 hours to this point, remains asleep at present * Carey Goldman MD - 11/17/2019 5:04 PM EDT Psychiatry Progress Note Patient Name: Aba Carlton Admit Date: MR #: [id number] : 2000 Perpetual Assessment Aba Carlton is a 19 y.o. male presenting with flor, psychosis, non-compliance and failure to complywith his AOT agreement. Diagnosis & Plan/Recommendations PRINCIPAL DIAGNOSIS: Schizoaffective disorder, bipolar type (HCC) Endocrine Hyperthyroidism Assessment & Plan A: Hyperthyroidism, probable Graves Disease, diagnosed earlier this month. Under the care of Dr. Nieto. Patient is again in denial that he has a thyroid problem and has refused medications as an outpatient. TSH <0.01 and free T4 6.9 at admission. Pulse currently in the 130's P: Resume medications. Re-consult Dr. Nieto for endocrine management. Repeat extensive education previously given when patient is receptive. Other * Schizoaffective disorder, bipolar type (HCC) Assessment & Plan A: Patient was released from the hospital on 10-30-2019 on the AOT program with Invega Sustenna, first loading dose on board, in stable condition. He received his second loading dose of 156 mg IM on 11-05-2019. Non- compliant with oral medications, including endocrine meds for treatment of hyperthyroidism. He returns in acute psychosis with flor for court ordered hospitalization. He is calmer today but without insight. P: Add oral Invega 6 mg and resume thyroid medications Unpredictable precautions Individual and group counseling Change prn medications to Geodon, as he seemed to respond well to it last hospital stay. Send for records from [facility] ronaldo with grandparents and AOT program New internal medicine consult for physical exam and medical management Lab and radiology studies as appropriate Comorbid issues impacting my care plan include thyrotoxicosis. Following for flor and psychosis Interval History: Aba continues to have no insight into why he is here. However, he is less bothersome about demanding discharge. He has been making other patients uncomfortable by standing too close and intruding on their privacy. Compliant with medications. Gradually improving since resuming medi cations. Review of Systems: Constitutional, cardiac, pulmonary, neurologic, musculoskeletal, GI and systems reveiwed and negative except as noted above Physical Examination: Vital Signs: BP (!) 109/57 (BP Location: Right arm, Patient Position: Lying) Pulse 93 Temp 97.3 F (36.3 C) (Infrared) Resp 16 Ht 5' 7 Wt 60.8 kg (134 lb) SpO2 97% BMI 20.99 kg/m Mental Status Evaluation: General Appearance & Behavior: age appropiate, thin and gaunt and cooperative Grooming & Hygiene: street clothes Psychomotor Activity: no psychomotor abnormalities or muscle atrophy noted Gait & Station stable gait and ability to rise from bed/chair without assistance Speech: soft spoken and pressured Flow of Thought: perseveration Thought Associations: Derailment Content of Thought: No evidence of SI/HI, delusions, paranoia and obsessions Mood: stressed out Affect: blunted Insight: poor Judgment: poor Orientation: alert and oriented to person, place, time, and circumstances Memory: intact recent and remote Attention: impaired Concentration: reduced Language: fluent Fund of Knowledge: estimated average intelligence Laboratory and Additional Data Reviewed: Laboratory 11/17/19 5:09 PM Medications 11/17/19 5:09 PM Transcriptions 11/17/19 5:09 PM Treatment options and alternatives reviewed with patient. Risks, benefits, side effects of all psychiatric medications discussed with patient and informed consent obtained. All questions were answered. Carey Goldman MD 11/17/2019 5:04 PM * Emerita Vidal MSW LISW-S - 11/17/2019 4:58 PM EDT Patient reviewed with Dr. Goldman. Patient's mood is still paranoid and determined to discharge, that nothing is wrong with him. Patient is sporadically attending groups to this point. Behavior per nursing is complaint with medications but irritable at times. Did refuse to allow his blood to be drawn this morning. Follow up appointments are through AOT and [facility]. environmental services technician continues to follow. * Kathrin Jacinto, RN - 11/17/2019 3:53 PM EDT 1535 In room in bed resting on left side with eyes closed at this time. 1600 Temp. 97.5 [address] in patients' room as patient sat casually dressed on his bed after stretching his sheets and blanket. Behavior is controlled, cooperative, guarded, and watchful. Communicates needs to staff and responds to questions. Mood is dull, and flat. Thought process is alert and oriented. Patient reports to this mortgage loan underwriter, my appetite is great, and I slept great. Denies any suicidal and homicidal ideations and voices. Denies anxiety and depression at this time. Has been out on unit this shift. Eats meals in dining room. Takes meds without incident. Completed ADLS. Eye contactgood with this mortgage loan underwriter and contracts for safety. GOAL: Go home. 1635 Eating supper in dining room 1637 Patient asked this mortgage loan underwriter to speak with Grandmother Shruti with RANDEE signed by patient. UpdatedGrandmother on patient condition. Grandmother advised patient would be returning to her home at discharge and to let staff know to call anytime. 1740 Patient to nursing station asking for someone to give test because he ate peanut butter sandwich and a Bee bug and it is hard for me to breathe. Patient does not exhibit any signs or symptoms of difficulty breathing at this time. Patient is continuously asking staff for something to eat and ask this mortgage loan underwriter for a hot meal from the kitchen. Advised we do not have hot meals in our kitchenette and he became short with this mortgage loan underwriter. This mortgage loan underwriter gave patient jello. Patient finished jello andwanted popcorn which was given at this time. 1834 [address] in hallway at this time. 1849 Made patient PB&J sandwich. Patient talking to Grandmother on phone at this time. 1919 Patient asking for something to drink at this time. Given Denia Mist per request. 1947 Patient asking for snack which was given for Sunday night snacks. 1999 Temp. 97.3 2009 Patient came to nursing station asking for another snack of cheese cubes which was given. 2039 Patient came to nursing station asking for something to drink, Apple juice. When this mortgage loan underwriter got his apple juice, he stated, I want orange juice, I want a lot of it. Given one Apple Juice and one [place] Juice at this time. 2100 VS 124/65, 111, 96% 2105 Patient came to nursing station and chose another snack of cheese cubes at this time. 2118 Took HS Inderal at this time without incident. 2139 Patient asking for a warmed blanket. His room is very chilly at this time. Warmed blanket per request at this time. 0 Patient in room in bed with head at foot of bed at this time. 225 Patient continues to rest in bed with head at foot of bed at this time. * Leta Cornejo, TUAN - 11/17/2019 1:15 PM EDT [id number] Recreation Therapy: Pt out in [facility], peering around corner when mortgage loan underwriter entered unit. Pt agreed to attend group. Pt restless at start of group asking to leave to change clothes and then again to wash hands. Pt reluctant to discuss reason for admission but did cite that he did not follow up with taking medication as needed or staying with his grandparents. Pt focused on LOS but could be refocused. PT denied responding to internal stimuli despite multiple times being distracted in mid thought/conversation and staring/looking around room. Pt agreed to remain in group to learn new leisure skill of Ship, Captain Crew, dice game. Pt struggled to retain all directions and apply them, thus requiring cueing throughout game. PT struggled to complete simple single digit math. Pt won game and voiced enjoyment. PT shared with mortgage loan underwriter that he was willing to allow blood draw to test his thyroid, thus pt was instructed to inform nursing staff and pt did so right after group. * Cata Morfin RN - 11/17/2019 12:50 PM EDT Pt at nurses' station requesting a breathing tx. RT called. * Elvira Suazo RN - 11/17/2019 9:51 AM EDT 08:30 Up and about on unit. Abrupt at times. Delayed speech at times. Just stares at times for a while prior to answering. Compliant with taking medications. Requested and using phone in his room. Respiratory called and gave patient breathing treatment. Patient refused lab draw, stating he did not need it. Explained why it was important to get his blood drawn to check his thyroid, but patient continues to refuse his blood drawn. Patient irritable. Encouraged to voice concerns to staff. Eating quickly when given food. Able to redirect easily at this time. 11:00 Up ambulating on unit. Delayed responses. Blank stare frequently. Able to redirect. 14:00 Patient's thinking seems slightly clearer at present time. Patient more polite at present time. * Jay Lovell PA-C - 11/17/2019 9:16 AM EDT CONSULT NOTE Patient Name: Aba Carlton Admit Date: 11/12/2019 MR #: [id number] : 2000 Physicians: Adrienne Arcos CNP (Family); Mariam Santamaria CNP (Referring) Assessment and Plan: ASSESSMENT: Hyperthyroidism: Patient with hx of hyperthyroidism noted on TFTs since at least 03/03,admitted for treatment of schizophrenia. He has multiple symptoms of hyperthyroidism. Patient was hospitalized 10/19/19, diagnosed with Graves' disease and Danilo's thyroiditis. Patient treated with40 mg daily and SSKI gtt when hospitalized in early October. After discharge he does not appear to have taken thyroid medications. PLAN: 11/13 Continue methimazole 40 mg daily. Will need long-term outpatient follow up. 11/16: Continue methimazole 40mg daily. Continue to assess for opportunity to ask patient to be agreeable to a repeat blood draw to recheck free T4. Continue propanolol 10mg BID. Chief Complaint/Reason for Visit: hyperthyroidism History of Present Illness: Aba Carlton is a 19 y.o. y/o male admitted from ER with history of schizophrenia with suicidal thoughts, disorganized thoughts and behavior and Graves' disease. He was found to be severely hyperthyroid and consultation was requested since we assisted in his care in early October 2019. He reports weight loss, heat intolerance and tremor. No dysphagia or double vision. He isnot able to contribute much to his medical history at this time. Review of previous labs shows he had evidence of elevated TFTs since at least 03/03. He does not report ever being treated for hyperthyroidism. 11/16: According to nursing patient continues to be highly irritable. He refused a blood draw this morning to recheck free T4 level. He has been aggressive and irritable towards staff over the last 24 hours. Remaining review of symptoms and physical exam were deferred secondary to this today. Tachycardia slowly improving. Lab review: 11/12/19: TSH: <0.01; Free T4: 6.9 11/06/19: TSH: <0.01; Free T4: 6.4 10/30/19: Free T4: 2.6 10/27/19: Free T4: 2.9 10/24/19: Free T4: 5.1 10/21/19 Na 141, K 4.1, creat 0.59,AST 29, ALT 56, WBC 8.81, Hgb 12.2, Hct 38.1, Plt 231k, TSH <0.01, FT4>8.0, FT3-24.5 10/19/19: TSI: 5.0; TPO: 278.1 05/14/18 TSH<0.01, FT4--4.73 03/06/18 TSH <0.01, FT4--3.49 History: Past Medical History: Diagnosis Date ADHD Hypertension Hyperthyroidism 10/20/2019 Hyperthyroidism Hyperthyroidism Schizo affective schizophrenia (HCC) Schizoaffective disorder (HCC) 10/20/2019 History reviewed. No pertinent surgical history. Family History Family history unknown: Yes Social History Socioeconomic History Marital status: Single Spouse name: Not on file Number of children: Not on file Years of education: Not on file Highest education level: Not on file Occupational History Not on file Social Needs Financial resource strain: Not on file Food insecurity Worry: Not on file Inability: Not on file Transportation needs Medical: Not on file Non-medical: Not on file Tobacco Use Smoking status: Current Every Day Smoker Packs/day: 1.00 Years: 5.00 Pack years: 5.00 Smokeless tobacco: Never Used Substance and Sexual Activity Alcohol use: Not Currently Drug use: Yes Types: Marijuana Comment: I don't even smoke pot monthly Sexual activity: Not Currently Lifestyle Physical activity Days per week: Not on file Minutes per session: Not on file Stress: Not on file Relationships Social connections Talks on phone: Not on file Gets together: Not on file Attends restorationist service: Not on file Active member of club or organization: Not on file Attends meetings of clubs or organizations: Not on file Relationship status: Not on file Other Topics Concern Not on file Social History Narrative Not on file Allergy Information: I have reviewed the patient's allergies. Grass pollen-red top, standard and Mite extract Home Medications: Hospital Medications: Scheduled Meds: methIMAzole 40 mg Oral Daily nicotine 1 patch Transdermal Daily paliperidone 6 mg Oral QAM propranoloL 10 mg Oral Q12H IMER Continuous Infusions: PRN Meds:.aluminum-magnesium hydroxide-simethicone, benztropine, haloperidoL OR haloperidol lactate, hydrOXYzine, ibuprofen, ipratropium-albuteroL, magnesium hydroxide, traZODone Review of Systems: 11/16: Deferred secondary to patient emotional state The following system(s) were reviewed and pertinent findings noted: Review of Systems Constitutional: Negative for appetite change, fatigue and unexpected weight change. HENT: Negative for trouble swallowing and voice change. Eyes: Negative for pain, redness and visual disturbance. Respiratory: Negative for shortness of breath. Cardiovascular: Negative for chest pain and palpitations. Gastrointestinal: Negative for constipation and diarrhea. Endocrine: Positive for heat intolerance. Negative for cold intolerance. Musculoskeletal: Negative for neck pain. Neurological: Positive for tremors. Psychiatric/Behavioral: Positive for behavioral problems, confusion and sleep disturbance. The patient is nervous/anxious. Physical Examination: Vital Signs: BP (!) 109/57 (BP Location: Right arm, Patient Position: Lying) Pulse 93 Temp 97.3 F (36.3 C) (Infrared) Resp 16 Ht 5' 7 Wt 60.8 kg (134 lb) SpO2 97% BMI 20.99 kg/m 11/16: Deferred secondary to patient emotional state Physical Exam Constitutional: He is oriented to person, place, and time. He appears well- developed and well-nourished. HENT: Head: Normocephalic and atraumatic. No exophthalmos or lid lag Eyes: Pupils are equal, round, and reactive to light. Conjunctivae and EOM are normal. No scleral icterus. Neck: Normal range of motion. Neck supple. Thyromegaly present. Cardiovascular: Normal rate, regular rhythm and normal heart sounds. No murmur heard. Pulmonary/Chest: Effort normal and breath sounds normal. No respiratory distress. He has no wheezes. He has no rales. Abdominal: He exhibits no distension. Musculoskeletal: General: No edema. Neurological: He is alert and oriented to person, place, and time. No cranial nerve deficit. Skin: Skin is warm. No erythema. Psychiatric: His affect is inappropriate. His speech is tangential. He is hyperactive and actively hallucinating. Thought content is delusional. Thought content is not paranoid. Cognition and memory are not impaired. He expresses inappropriate judgment. Laboratory and Additional Data Reviewed: Laboratory 11/17/19 4:16 PM Transcriptions 11/17/19 4:16 PM No results found for: HGBA1C Glucose (mg/dL) Date Value 11/06/2019 93 Creatinine (mg/dL) Date Value 11/06/2019 0.62 Lab Results Component Value Date CHOL 105 10/19/2019 TRIG 101 10/19/2019 HDL 33 (L) 10/19/2019 LDLCALC 52 10/19/2019 Lab Results Component Value Date TSH <0.01 (L) 11/12/2019 T4, Free Date Value Ref Range Status 11/12/2019 6.9 (H) 0.7 - 1.7 ng/dL Final Lab Results Component Value Date WBC 11.54 (H) 11/06/2019 HGB 12.3 (L) 11/06/2019 HCT 37.4 (L) 11/06/2019 MCV 85.0 11/06/2019 PLT 256 11/06/2019 This SmartLink has not been configured with any valid records. This SmartLink has not been configured with any valid records. Thank you for this consultation, we will continue to follow this patient with you. Electronically signed by: Jay Lovell PA-C, [facility] 11/17/19 4:19 PM * Lilly Ta CTRS - 11/17/2019 9:00 AM EDT Goal Group and AM Warm Up: Pt did not respond to therapist's voice or knocking on the door to inform about group. * Jennifer Ortiz RN - 11/16/2019 11:43 PM EDT 2330 Pt requesting remote for TV and a snack. Reminded pt that TV is off for the night. Pt verbalized understanding. Per pt request, pt was given hitesh crackers, string cheese and hot cocoa for a snack. 0200 Pt cont to be awake. Resting quietly in bed at this time. 15 min checks maintained for pt safety. 0430 Pt resting quietly in bed with eyes closed, resp even.15 min checks maintained for pt safety. 0645 Pt has rested ! 4.5 hrs this shift. Pt cont to rest quietly in bed with eyes closed, resp even.15 min checks maintained for pt safety. * Carey Goldman MD - 11/16/2019 7:49 PM EDT Psychiatry Progress Note Patient Name: Aba Carlton Admit Date: MR #: [id number] : 2000 Perpetual Assessment Aba Carlton is a 19 y.o. male presenting with flor, psychosis and thyrotoxicosis. Diagnosis & Plan/Recommendations PRINCIPAL DIAGNOSIS: Schizoaffective disorder, bipolar type (HCC) Endocrine Hyperthyroidism Assessment & Plan A: Hyperthyroidism, probable Graves Disease, diagnosed earlier this month. Under the care of Dr. Nieto. Patient is again in denial that he has a thyroid problem and has refused medications as an outpatient. TSH <0.01 and free T4 6.9 at admission. Pulse currently in the 130's P: Resume medications. Re-consult Dr. Nieto for endocrine management. Repeat extensive education previously given when patient is receptive. Other * Schizoaffective disorder, bipolar type (HCC) Assessment & Plan A: Patient was released from the hospital on 10-30-2019 on the AOT program with Invega Sustenna, first loading dose on board, in stable condition. He received his second loading dose of 156 mg IM on 11-05-2019. Non- compliant with oral medications, including endocrine meds for treatment of hyperthyroidism. He returns in acute psychosis with flor for court ordered hospitalization. He is calmer today but still hostile and without insight. He demands to be discharged and denies court involvement. P: Add oral Invega 6 mg and resume thyroid medications Unpredictable precautions Individual and group counseling Change prn medications to Geodon, as he seemed to respond well to it last hospital stay. Send for records from [facility] with grandparents and AOT program New internal medicine consult for physical exam and medical management Lab and radiology studies as appropriate Comorbid issues impacting my care plan include thyrotoxicosis. Following for flor, psychosis, non-compliance with essential medical treatment Interval History: Aba is single-mindedly obsessed with release from the hospital. He argues incessantly that he was compliant with his medications, that the court just wanted him in for one day, that his grandparents welcome him home. Interrupts my interactions with other patients in order to start in again. He has no insight at all at this point. Will fill out guardianship application as requested by [employer]. Review of Systems: Constitutional, cardiac, pulmonary, neurologic, musculoskeletal, GI and systems reveiwed and negative except as noted above Physical Examination: Vital Signs: BP 127/85 (BP Location: Right arm, Patient Position: Sitting) Pulse (!) 110 Temp 97.3 F (36.3 C) Resp 16 Ht 5' 7 Wt 60.8 kg (134 lb) SpO2 95% BMI 20.99 kg/m Mental Status Evaluation: General Appearance & Behavior: age appropiate, uncooperative, defensive, demanding and good eyecontact Grooming & Hygiene: street clothes Psychomotor Activity: psychomotor agitation Gait & Station stable gait and ability to rise from bed/chair without assistance Speech: hyperverbal and pressured Flow of Thought: perseveration Thought Associations: Intact Content of Thought: delusions, paranoia and obsessions Mood: okay Affect: irritable Insight: poor Judgment: poor Orientation: alert and oriented to person, place, time, and circumstances Memory: intact recent and remote Attention: impaired Concentration: impaired Language: fluent Fund of Knowledge: estimated average intelligence Laboratory and Additional Data Reviewed: Laboratory 11/16/19 7:55 PM Medications 11/16/19 7:55 PM Transcriptions 11/16/19 7:55 PM Treatment options and alternatives reviewed with patient. Risks, benefits, side effects of all psychiatric medications discussed with patient and informed consent obtained. All questions were answered. Carey Goldman MD 11/16/2019 7:49 PM * Manuel Fernando, TRUCK DRIVER RUBBISH COLLECTOR - 11/16/2019 3:32 PM EDT 1527: Patient walking in the hallways, calm composed, patient requested the television remote, patient returned to the lounge at start of shift. 1611: Patient ambulating in the hallways, laughing inappropriately, mobile agitation, bright and smiling affect. 1616: When prompted by Katie Thomson RN of how he is doing, patient replied I'm happy, when asked about hearing voices, or seeing things, patient declined, patient educated if that changes to let nursing know, patient acknowledged understanding and returned to the [facility]. 1630: Patient retrieved supper tray from the dietary cart and [facility], calm composed at this time. 1730: Patient approached nurse's station, states toilet overflowed, this nurse went to room to confirm and then called Maintenance, patient then requested snacks, declined request at this time. 1746: Maintenance arrived and cleared the toilet, housekeeping was notified to clean the bathroom/room floor. 1920: Patient seated in room, calm composed upon approach, patient had used his blankets and bed linen to dry up the floor, patient cooperative to carry linens to hamper, this nurse provided patient with new blankets and towels. 1999: Evening snack of whole turkey sandwich on white bread, granola bar and chocolate boost was provided to patient, patient left them on a table in the dining bone and returned to the lounge. 2015: Patient approached nurse's station, requested coffee, when prompted about the scheduled snackprovided, patient states I don't want that, patient removed those items from his room, refusing to eat the turkey sandwich or Boost shake. Patient now seated in the lounge with a peer. 2143: Obtained patient's blood pressure to be, 124/72, heart rate 111, oxygen saturation 97% on room air. Administered Inderal as prescribed, patient tolerated fairly well, oral cavity check cleared.Patient agreed to interaction, patient denies anxiety, patient denies depression, patient denies SI/HI/Voices, patient appetite is great, sleep pattern not so good. Patient is hypermobile about the unit, medication compliant, meals in the lounge. Patient has a fair amount of eye contact, independent with ADLs, patient contracts for safety. Patient requested ice cream, this nurse provided from [employer] [facility] [employer] [facility] [employer] [facility]. 2151: Patient brought ice creams to nurse's station, asking to return them, then asking to change his breakfast order, patient was redirectable as menu selections cannot be changed with the Dietary project airplane pilot. Patient returned to the lounge. 2299: Patient pacing the hallways, calm composed, ambulating without problem at end of shift. * Re Arriaga CTRS - 11/16/2019 1:00 PM EDT Recreation Therapy: Pt came to group then dismissed himself stating he wanted to shower. He did change his shirt but had not showered. Continues to walk in and out of room with difficulty sitting still or staying focused. Appears to be responding to internal stimulus. * Celia Morfin - 11/16/2019 12:36 PM EDT Spiritual Health Care Note Patient attended Spirituality group. The focus was on Inspiration and Spiritual Values. Showroom Executive Director role introduced and how to contact if follow up is requested. Chaplain Celia Morfin MDiv [facility] Care Department [phone] office [phone] pager [phone] on-call pager (after 5pm and weekends) 11/16/19 1000 Clinical Encounter Type Visit Type Non Crisis Non Crisis Visit Group Visited With Patient Visited By Other (comment) (Showroom Executive Director) Visit Length (minutes) 45 * Julianne Santamaria RN - 11/16/2019 10:29 AM EDT 0846: Patient has been up ambulating the unit, ate breakfast in the lounge area. Maintaining appropriate conversation and eye contact. Denies having any depression or anxiety stating, I feel great. Denies any SI or HI. Stating, I slept great emotional support given. Medication compliant. Reports no plans to shower this morning reports, I showered 5 times yesterday . Voices plans to attendhis scheduled group therapy sessions today, encouragement given. Voicing his goal for the day is, to work on some things pt unable to voice what he would like to work on. Pt educated on the importance of being medication compliant stating, absolutely that he will continue to take his medications once discharged, continued emotional support given. Denies any needs at this time. Encouraged toseek staff for any needs and pt agrees. 1000: Attending spirituality group. 1310: Behavior has been controlled and cooperative, spending time out of room, in the lounge area or ambulating the halls, smiling/laughing appears to be responding to internal stimuli. Pt to the nurse's station requesting a taxi to [place] tomorrow, pt voices he will be discharged. Pt informed ifhe is discharged then we will be able to get him transportation set up with his addiction social worker, pt agrees. Pt returning to the nurse's station a few minutes later to request the phone number to [facility] in [place], pt walked and way, returned and said mariomind would not elaborate on thereason he no longer wanted the number. 1415: Pt asking a few times about discharge again, becoming preoccupied with this, pt aware he willnot be leaving the unit today and agrees to discuss discharge plans with his doctor. Observed ambulating bone and will stop abruptly and just stare straight ahead, staff redirection offered. Pt has left his scheduled group session early. Offered PRN medication at this time due to unpredictable behavior appearing to be getting anxious, pt denies needing any stating, I'm fine, I can get it together staff will continue to monitor pt closely. 1430: Dr. Goldman on the unit, seeing pt at this time. 1500: Sitting in lounge, behavior remains controlled. * Jennifer Ortiz RN - 11/15/2019 11:37 PM EDT 2330 Pt up and about in lounge. Pt pleasant and cooperative. 0210 Pt requesting breathing treatment. Atrovent had been d/c'd dt to pt stating he didn't need it anymore. Dr. Goldman with request from pt for PRN Atrovent. New order received from Dr. Goldman for Atrovent PRN every 6 hours. Pt given Atrovent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 agreed to take his Invega but refused right before the med packages were opened. 1245 Pt thinks he is diabetic and it is the reason why he is in the hospital. Pt states he is unable to have sugar in his diet. 1255 Pt received crackers and pb for a snack per pt request. 1405 Pt is walking around and appears to be reacting to internal stimuli. Pt is laughing, smiling and there is nothing or anyone around. 1455 Pt is still pacing around the unit,smiling and laughing but there is nothing around him. * Patti Sauceda, HAND DEVELOPER - 11/13/2019 8:35 AM EDT 08:35 Contacted pt for Behavioral Health Therapy Initial Assessment. Pt sleeping soundly at this time. Will check back with pt later this morning. 11:30 Patient not in his room at this time but his room and bathroom floor both had standing water.Area cleaned by this mortgage loan underwriter and Environmental Services Staff. Pt found in the lounge and stated hisshower leaked and that he needed a shower chair when showering. Encouraged pt to discuss this further with nursing staff. After room was cleaned this mortgage loan underwriter again approached pt to complete Behavioral Health Therapy Initial Assessment and pt was eating his lunch in the TV lounge. He declined to talkat this time. Asked pt if he would answer questions after eating and he again declined stating, No, I'm not ready. I'm not ready. Will monitor patient's progress and complete assessment as pt behavior permits. 13:15 Attempted to speak with pt again for Initial Behavioral Health Therapy Assessment. Upon approach, pt was walking in the hallway, laughing and talking to himself as though he was responding to internal stimuli. Pt voiced he did not want to go to any groups or answer any questions. Pt then asked this mortgage loan underwriter, What is 738 x 78? Pt laughed to himself, made bizarre body gestures and he walked away. * Ghulam Garcia RN - 11/13/2019 2:32 AM EDT 0215 This RN assumes care of patient, orders and lab work reviewed, is resting quiet in bed 0600 Appears to have slept 6-7 hours, interrupted, at present appears to be sleeping, resting quiet * Brooklyn Mccrary RN - 11/13/2019 1:03 AM EDT 0100: Patient is resting quietly in bed, eyes closed, respirations even and non labored. * Cris Thomson RN - 11/12/2019 8:59 PM EDT [address] [facility] room 3303 via wheelchair accompanied by ED staff and soil science technical officer at 2023. Pt arrived with probate court order for hospitalization signed by Judge Artis. Pt placed on every 15 minute checks upon arrival to unit. Pt changed into gown on unit and no contraband found. Admission completed, please refer to admission for additional information. Pt minimally cooperative with admission process. Pt would only give minimal answers and was fixated on multiple somaticcomplaints (itching all over, trouble breathing because of allergic reaction, hunger, etc). Pt in no breathing/respiratory distress and pt itching frequently in different areas but no sparks or rashes noted. Pt in constant motion walking around room during assessment. Pt admitted due to not following AOT orders. Pt admits to not following AOT orders. Pt currently denies suicidal or homicidal ideation. Pt denies hallucinations, but seen laughing and talking to self at times. Pt is admitted under the care of Dr. Goldman with a diagnosis of Schizoaffective Disorder Bipolar Type. Dr. Goldman had already entered signed and held admission orders, see orders. Pt placed on suicide precautions. Pt signed medication consent form and release of information for Grandmother, Shruti Hughes, for collateral information. Pt frequently asking for snacks. Pt given Vistaril for complaints of anxiety and itching. [address] Goldman for Nicotine patch 21 mg and order entered in [facility]. 2135 Pt continues to frequently want snacks after many snacks had already been given. Limits set. Pt out in lounge area watching TV. 2149 Pt has laid down in bed. Respirations are even and non labored. 2217 Pt resting quietly, resps even and non labored. * Anton Colindres LISW - 11/12/2019 4:52 PM EDT This worker received call from [employer] who reports Patient did receive his Invega injection (156 mg) at [facility] on 11/05/2019. CRISTAL Velez updated. documented in this encounter* Keri Maurice MD - 11/21/2019 11:42 AM EDT [facility] Medicine Inpatient Follow-up 11/21/2019 Keri Maurice MD [facility] Patient: Aba Carlton Date of : 2000 (19 y.o.) PCP: Adrienne Arcos CNP ASSESSMENT/PLAN: Aba Carlton 19 y.o. male presented with complains of tachycardia. Patient with hx of hyperthyroidismnoted on TFTs since at least 03/03, admitted for treatment of schizophrenia. He has multiple symptoms of hyperthyroidism. Patient was hospitalized 10/19/19, diagnosed with Graves' disease and Danilo's thyroiditis. Patient treated with 40 mg daily and SSKI gtt when hospitalized in early October, and again at the end of October. He was discharged on 11/19/19, and immediately returned about 24 hours later with symptoms of hyperthyroidism. In addition he was brought by D as he had stolen his grandparents car which is still missing. He apparently has not been taking his psych or thyroid medications. This is now his 3rd re-admission for hyperthyroidism, due to med. Non-compliance. Active Problems: Hyperthyroidism History of Graves' disease History of schizophrenia PLAN: Hypothyroidism secondary to Graves' disease -Continue methimazole 40 mg oral daily continue propranolol History of schizophrenia -Appreciate Dr. Goldman's input -Patient lacks capacity to make his own medical decisions. Guardianship paperwork pending -Possible transfer to inpatient psychiatry when medically stable SUBJECTIVE: Patient complains sob and palpitations all other systems reviewed and negative other than noted above. OBJECTIVE: Physical Examination: BP 106/62 Pulse (!) 115 Temp 99.2 F (37.3 C) (Infrared) Resp 15 Ht 5' 7 Wt 61.1 kg (134 lb 9.6 oz) SpO2 95% BMI 21.08 kg/m General Appearance: Alert, well appearing, and in no acute distress. HEENT: Head - Normocephalic, atraumatic. Eyes - AKOSUA bilaterally and EOMI. Ears - normal external appearance, hearing intact. Nose - normal, no erythema. Throat - mucous membranes moist, pharynx without lesions. Neck: Supple, trachea midline. Cardiovascular: S1, S2 normal. No murmurs, rubs, clicks or gallops appreciated. No pedal edema. Respiratory: Lungs clear to auscultation, no wheezes, rales or rhonchi heard. Abdomen: Soft, non-tender, normal bowel sounds, non-distended, no masses or organomegaly appreciated. Neurological: Grossly normal motor and sensory exam. No focal deficits. Musculoskeletal: No joint tenderness, deformity or swelling. Skin: Normal coloration and turgor. No rashes. Psych: Alert, oriented x 3. Normal mood and affect. CURRENT MEDICATIONS: carvediloL 12.5 mg Oral BID hydrocortisone sod succinate 50 mg Intravenous Q6H IMER ipratropium-albuteroL 3 mL Inhalation Q4H IMER methIMAzole 20 mg Oral BID paliperidone 6 mg Oral QAM Results/Medications Reviewed 11/21/19 11:42 AM: Results from last 7 days Lab Units 11/20/19 1309 SODIUM mmol/L 139 POTASSIUM mmol/L 3.8 CHLORIDE mmol/L 108 BUN mg/dL 11 CREATININE mg/dL 0.59 GLUCOSE mg/dL 93 CALCIUM mg/dL 9.0 Results from last 7 days Lab Units 11/20/19 1309 WBC K/mcL 10.33 HGB g/dL 13.0* HCT % 39.2* PLT K/mcL 239 Results from last 7 days Lab Units 11/20/19 1309 TROPONIN I ng/L <15 Results from last 7 days Lab Units 11/20/19 1309 ALK PHOS U/L 224* BILIRUBIN TOTAL mg/dL 0.6 TOTAL PROTEIN g/dL 7.2 ALTR U/L 50 AST U/L 19 CULTURES: Reviewed 11:42 AM IMAGING: Reviewed 11:42 AM documented in this encounter* Emerita Vidal MSW LISW-S - 12/18/2019 11:00 AM EDT Patient discharged to [facility] Crisis Stepdown unit and is scheduled to follow up with [facility] andT. BH Day of Discharge bundle was faxed through [facility] to agency. Contacted patient's grandmother to update her on discharge. No further social media designer needs identified at this time. Case closed. * Re Arriaga CTRS - 12/18/2019 9:15 AM EDT Goal/Warm UP: Pt was in his room when asked to attend group. His response was maybe. Pt did not come until the end of session when peers were exiting the room. * Bonnie Edmond RN - 12/18/2019 8:41 AM EDT 0745 - Pt is in bed lying down with regular and unlabored respirations. Admits he had about 98 hrs of sleep and 0/10 Anxiety and depression. Denies SI/Hi/AH/AhH and contracts for safety. His mood is flat and he answers questions as briefly as possible. Behavior is appropriate and cooperative. 0800 - Eats 100% of meal and takes medications as prescribed and is compliant. 0930 - Encouraged to attend group. Patient accepts and verbalizes his willingness and the benefits.He showers and performs ADL independently at this time. 1030 - Anton from [facility] is talking with patient 1055 - Patient is discharged from the unit accompanied by Katie Charles - [facility] staff. After visit summary, including discharge medication list and follow up appointments, thoroughly discussed with pt and catalyst staff in the room. Both verbalized understanding and denies any questions. Both given a copy of the after visit summary. Pt given copy of the safety plan, and all personal b elongings. Pt denies suicidal or homicidal ideation. Pt discharged. 1100 - Discharge AVS faxed to pt guardian to be signed. * Emerita Vidal MSW LISW-S - 12/18/2019 8:21 AM EDT Referral called into [facility] for stepdown crisis unit. Faxed requested information to them. Awaiting follow up to see if he is accepted. environmental services technician continues to follow. * Ghulam Garcia RN - 12/18/2019 12:08 AM EDT 0005 Have reviewed patient notes, orders and labs, patient currently resting in bed, eyes closed, resp even 0610 Has rested quiet in bed overnight, appears to have slept 6-7 hours to this point, and remains asleep at this time * Carlos Chung MD - 12/17/2019 6:09 PM EDT Psychiatry Progress Note Patient Name: Aba Carlton Admit Date: MR #: [id number] : 2000 Perpetual Assessment Aba Carlton is a 19 y.o. male was seen individually, as discussed with nursing staff, medical records were reviewed. Patient is pacing the floor, while engaging in conversation with family members on telephone. He is verbally directable on the unit. Patient had been repeatedly asking the question about his placement in the [facility] setting. He is in compliance with current medication regimen, no adverse effect noted Diagnosis & Plan/Recommendations Supportive therapy Pharmacological treatment Group therapy, activities therapy PRINCIPAL DIAGNOSIS: Schizoaffective disorder, bipolar type (HCC) Other * Schizoaffective disorder, bipolar type (HCC) Assessment & Plan A: Aba is back in the hospital, again non-compliant with medications. This time, he stole a car and ran off. Brought in by police. He has no insight whatsoever that his behaviors cause repeated hospitalizations. He denies all psychiatric symptoms and is clamoring for discharge.Guardianship paperwork has already been submitted during last hospitalization. Plan: Admit for patient safety and the safety of the community Unpredictable and elopement precautions PRN medications for agitation, anxiety and insomnia, EPS Continue medical treatment of hyperthyroid state per endocrinology Increase dose of next Invega Sustenna injection to 234 mg q 4 weeks (8-22) Discuss possible addition of lithium with Dr. Nieto Milieu therapy Individual and group sessions as tolerated SW liason with family and AOT program Internal medicine consult Lab and radiology as indicated Comorbid issues impacting my care plan include hyperthyroidism Following for Interval History: Review of Systems: Constitutional:No fever, no weight loss Eyes:No diplopia ENT:No sinus drainage CV:No chest pain. No ankle swelling Resp:No dyspnea. No wheezing GI:No abdominal pain.No abdominal distention :No dysuria Neuro:No headache Integumentary:No skin rash MuscSkel:No arthralgias Endo:No polyuria Heme/lymphatic:No apparent lymphadenopathy Allergic/Immunologic:No hives Physical Examination: Vital Signs: BP 102/69 (BP Location: Left arm, Patient Position: Sitting) Pulse 81 Temp 98 F (36.7 C) Resp16 Ht 5' 7 Wt 63 kg (138 lb 12.8 oz) SpO2 97% BMI 21.74 kg/m Mental Status Evaluation: General Appearance & Behavior: older than stated age and cooperative Grooming & Hygiene: street clothes Psychomotor Activity: no psychomotor abnormalities or muscle atrophy noted Gait & Station stable gait Speech: pressured Flow of Thought: concrete Thought Associations: Intact Content of Thought: delusions Mood: anxious Affect: anxious, worried and fearful Insight: fair Judgment: fair Orientation: alert and oriented to person, place, time, and circumstances Memory: intact recent and remote Attention: adequate Concentration: intact Language: intact Fund of Knowledge: estimated average intelligence Laboratory and Additional Data Reviewed: Laboratory 12/17/19 6:20 PM Microbiology 12/17/19 6:20 PM Pathology 12/17/19 6:20 PM Radiology 12/17/19 6:20 PM Medications 12/17/19 6:20 PM Transcriptions 12/17/19 6:20 PM Treatment options and alternatives reviewed with patient. Risks, benefits, side effects of all psychiatric medications discussed with patient and informed consent obtained. All questions were answered. Carlos Chung MD 12/17/2019 6:09 PM * Brooklyn Mccrary RN - 12/17/2019 4:27 PM EDT 1600: Patient is calm, cooperative, smiling. He asks for water and to listen to music. He says he is having a good day, and music makes him feel calm. He keeps to himself while walking and listening to music. Denies further needs at this time. 1800:Patient showered and dressed. He enjoys listening to music on the speaker. He politely gave itback to staff when another patient requested to listen to music next. He is calm, cooperative. He says his goal is to leave and says at this point he is willing to go anywhere but here because he wants to be in the fresh air. Support given. He has some delay in responses at times, it appears he thinks about his answers before saying them out loud. He denies A/V hallucinations. He is sleeping well at night. Appetite is good. He is staying hydrated, drinking plenty of water. 2000: Patient is in lounge having a snack. 2100: Patient took his HS medications and went to bed. * Emerita Vidal MSW LISW-Mady - 12/17/2019 3:16 PM EDT Referral called to Taco at [facility] regarding patient going to the Crisis stepdown unit while waiting for placement for one of the group homes. [facility] came up this afternoon to evaluate patient for unit and feels he would be appropriate if there is a bed and is contacting Anton Lopezjemjany regarding further availability. At [facility]'s request did fax referral bundle (med list, H&P, facesheet) to agency. Contacted patient's grandmother and updated her of above. environmental services technician continues to follow. * Lilly Ta CTRS - 12/17/2019 1:00 PM EDT Recreational Therapy: Pt refused to attend, however did join group for approximately 5 minutes near end of group. * Lilly Ta CTRS - 12/17/2019 9:00 AM EDT Goal Group and AM Warm Up: Pt was resting in bed when approached for group, refused to attend * Bonnie Edmond RN - 12/17/2019 8:05 AM EDT 0745 Lying in bed awake with respirations breathing and unlabored. VS taken and patient denies anxiety and depression at this time. Denies SI/HI and contracts for safety. Maintains fair eye contact and delays response to questions. 0800 Ate 75 % of breakfast with fairly good appetite. Rates pain at 0/10. 0840 Takes meds as administered and is cooperative. States that is goal for the day is to get to where I need to be. Can't elaborate further on the meaning of the statement. 1145 in the unit eating lunch 100%. No voices complains at this time. 1230 Walking up and down the hallway. Calm and controlled. 1300 Praises given to patient for being polite and asking for remote control, water. 1500 Watching TV in the lounge, calm and cooperative. * Kathrin Jacinto, CRISTAL - 12/16/2019 11:33 PM EDT 2330 In room in bed resting with head at foot of bed. Respirations even and unlabored in no apparent distress. Patient sleeps with light on. 0000 Special Precautions continue--see precaution monitoring for observations and documentation. Patient currently resting in bed at this time. 0200 In room in bed resting with head at foot of bed. Respirations even and unlabored in no apparent distress. 0400 Continues resting in bed with head at foot of bed at this time. Respirations even and unlabored in no apparent distress. 0600 Patient appeared to have slept approximately 8 hours to present without complaints. Patient remains in bed awake at this time. 0610 Patient up briefly and returned to bed at this time and remains in bed. * Emerita Vidal MSW LISW-S - 12/16/2019 4:16 PM EDT No word yet from [facility] regarding patient's status on placement. Per reports patient continues to wander around the unit, at times laughing inappropriately, continuing to respond to internal stimuli however remains cooperative with staff and unit rules. environmental services technician continues to follow. * Malena Sahu RN - 12/16/2019 3:28 PM EDT 1545: Pt is alert and oriented up to nurses station. Calm and cooperative. Maintains fair eye contact. Full affect. Pt is dressed in street clothes. Pt denies SI/HI/AH/VH and contracts safety with this staff. Thought blocking observed. Pt laughs at inappropriate times. Appears to respond to internal stimuli. Pt rates anxiety and depression both 0/10. Pt states that he is feeling much better and feels ready to be discharged when the time comes. Pt states he slept well and has a good appetite. Encouraged pt to express needs to staff. 1630: Pt eating dinner in dining room. Calm and controlled. 1700: Temp 97.7 temporal. 1830: Pt walking up and down hallway. Calm and controlled. 2000: Temp 97.5 temporal. 2019: Pt received scheduled medication and took without difficulty. Pt also requests and given PRN trazodone for sleep at this time. 2100: Pt resting in bed awake. Calm and controlled. 2229: Pt resting in bed with eyes closed. Respirations even and non labored. * Nick Azevedo RD - 12/16/2019 3:02 PM EDT Nutrition Care Follow Up Monitoring and Evaluation: PO intake was less than 75% at most meals Nutrition Diagnosis: no current nutritional problems Nutrition Intervention: meal rounds Meal and Snacks Nutrition Prescription: Diet: regular Nutrition Goals: PO intake > 75% most meals Start Date:12/16/2019 Expected End Date:12/22/2019 Nutrition Education: No needs at this time Assessment: Pertinent clinical information: hyperthyroidism Current weight: 63 kg (138 lb 12.8 oz) Body mass index is 21.74 kg/m . Current diet order: regular Recent intake: 75%. Current intake Likely meets estimated needs. Difficulty Chewing/Swallowing: No Skin Integrity: Intact GI Function: WNL Physical Appearance: no change from initial assessment Labs: No results for input(s): NA, K, BICARB, CL, GLUCOSE, BUN, CREATININE, MG, PHOS in the last 72hours. Scheduled Meds: divalproex 500 mg Oral BID methIMAzole 20 mg Oral BID paliperidone 6 mg Oral Daily Continuous Infusions: Estimated Energy Needs Total Energy Estimated Needs: 2500kcal Method for Estimating Needs: 40kcal/kg Total Protein Estimated Needs: 75gm Method for Estimating Needs: 1.2gm/kg [place] Azevedo MS, JEFFRY, LD Office * Carlos Chung MD - 12/16/2019 1:06 PM EDT Psychiatry Progress Note Patient Name: Aba Carlton Admit Date: MR #: [id number] : 2000 Perpetual Assessment Aba Carlton is a 19 y.o. male was seen individually, case discussed with nursing staff, medical records were reviewed. Patient is sitting in day room area, stated that today is waiting for phone call from guardian regarding his living arrangement. Patient is selectively interacting with peers. Diagnosis & Plan/Recommendations Supportive therapy Pharmacological treatment Group therapy, activities PRINCIPAL DIAGNOSIS: Schizoaffective disorder, bipolar type (HCC) Other * Schizoaffective disorder, bipolar type (HCC) Assessment & Plan A: Aba is back in the hospital, again non-compliant with medications. This time, he stole a car and ran off. Brought in by police. He has no insight whatsoever that his behaviors cause repeated hospitalizations. He denies all psychiatric symptoms and is clamoring for discharge.Guardianship paperwork has already been submitted during last hospitalization. Plan: Admit for patient safety and the safety of the community Unpredictable and elopement precautions PRN medications for agitation, anxiety and insomnia, EPS Continue medical treatment of hyperthyroid state per endocrinology Increase dose of next Invega Sustenna injection to 234 mg q 4 weeks (8-22) Discuss possible addition of lithium with Dr. Nieto Milieu therapy Individual and group sessions as tolerated SW liason with family and AOT program Internal medicine consult Lab and radiology as indicated Comorbid issues impacting my care plan include hyperthyroidism Following for Interval History: Review of Systems: Constitutional:No fever, no weight loss Eyes:No diplopia ENT:No sinus drainage CV:No chest pain. No ankle swelling Resp:No dyspnea. No wheezing GI:No abdominal pain.No abdominal distention :No dysuria Neuro:No headache Integumentary:No skin rash MuscSkel:No arthralgias Endo:No polyuria Heme/lymphatic:No apparent lymphadenopathy Allergic/Immunologic:No hives Physical Examination: Vital Signs: BP 133/83 (BP Location: Right arm, Patient Position: Sitting) Pulse (!) 112 Temp 97.8 F (36.6 C) (Oral) Resp 18 Ht 5' 7 Wt 63 kg (138 lb 12.8 oz) SpO2 96% BMI 21.74 kg/m Mental Status Evaluation: General Appearance & Behavior: older than stated age and cooperative Grooming & Hygiene: street clothes Psychomotor Activity: psychomotor retardation Gait & Station stable gait Speech: soft spoken Flow of Thought: concrete Thought Associations: Intact Content of Thought: delusions and paranoia Mood: stressed out Affect: restricted Insight: fair Judgment: fair Orientation: alert and oriented to person, place, time, and circumstances Memory: intact recent and remote Attention: adequate Concentration: intact Language: intact Fund of Knowledge: estimated average intelligence Laboratory and Additional Data Reviewed: Laboratory 12/16/19 1:09 PM Microbiology 12/16/19 1:09 PM Pathology 12/16/19 1:09 PM Medications 12/16/19 1:09 PM Transcriptions 12/16/19 1:09 PM Treatment options and alternatives reviewed with patient. Risks, benefits, side effects of all psychiatric medications discussed with patient and informed consent obtained. All questions were answered. Carlos Chung MD 12/16/2019 1:06 PM * Re Ar[facility]aga [facility] - 12/16/2019 1:00 PM EDT Recreation Therapy: Pt wondering around on the unit and did not come to the group room when invited. * Lilly Ta [facility] - 12/16/2019 9:00 AM EDT Goal Group: Pt stated feeling great, I've waited a long time for this Pt stated goal to contact my support. Pt would not elaborate any further. AM Warm Up: Pt excused self from group, did not participate in breathing and chair level exercises. * Elvira Suazo RN - 12/16/2019 7:52 AM EDT 08:00 Patient sitting in dining area eating breakfast. Ate 100% of breakfast. Blunted affect. Abrupt with statements. Not polite with requests at present time. Requested and given extra chocolate milk. Denies any auditory or visual hallucinations, but patient appears distracted and slow to respond at times. Denies any suicidal or homicidal thoughts. Able to contract for safety. Encouraged to attend therapies and voice concerns to staff. States he slept well last night. No voiced complaints at this time. Returned to bed after breakfast. 09:00 Patient walked in therapy session but only stayed a short time before walking back out. 12:00 Ate 100% of lunch in the dining area. 13:00 More polite when making requests at this time. Requested and given a snack. No voiced complaints at this time. Talked with female peer and offered words of kindness and sympathy appropriately. Praised for his kindness to peer. * Gisel Vinson RN - 12/16/2019 12:04 AM EDT 2330 Resting in bed. 0000 Patient currently resting in bed at this time. Special Precautions continue--see precaution monitoring for observations and documentation. 0200 Patient in bed, respirations easy. 0400 Patient resting in bed with eyes closed and even respirations. 0600 Slept approximately 9 1/4 hours, from 2114 to present without concerns. Patient remains in bedresting. * Emerita Vidal MSW [facility]-S - 12/15/2019 4:13 PM EDT Spoke with patient in daily rounding at nurses' station. Patient is anxious to discharge but still have not had an update as to where he is able to go - either [place] or [place]. [facility]. Otherwise patient reports he's doing better. He does appear to be calmer thought only sporadically attending therapy groups. environmental services technician continues to follow. * Malena Sahu RN - 12/15/2019 3:37 PM EDT 1600: Temp 97.3 temporal. 1630: Pt is alert and oriented in hallway. Calm and cooperative. Maintains good eye contact. Full affect. Pt is dressed in street clothes. Pt denies SI/HI/AH/VH and contracts safety with this staff. Pt laughs and smiles inappropriately. Pt appears to respond to internal stimuli at times. Thought blocking observed. Pt rates anxiety and depression as good today. Pt states he slept well and has a good appetite. Pt is more appropriate when asking questions and appears more controlled. Encouraged pt to express needs to staff. 1830: Pt in shower. 0: Pt resting in bed awake. Calm and controlled. 2000: Temp 98.1 temporal. 2114: Pt resting in bed with eyes closed. Respirations even and non labored. 2229: Pt remains resting in bed with eyes closed. Respirations even and non labored. * Re Ar[facility]aga [facility] - 12/15/2019 1:30 PM EDT 1330 Recreation Therapy: Pt came to group though refused to participate in the activity stating he only wanted to watch. Unable to encouraged pt to play the game of Kairos4 which he was familiar with. Pt left after 15 minutes. * Carlos Chung MD - 12/15/2019 12:53 PM EDT Psychiatry Progress Note Patient Name: Aba Carlton Admit Date: MR #: [id number] : 2000 Perpetual Assessment Aba Carlton is a 19 y.o. male was seen individually, case discussed with nursing staff, medical records were reviewed. Patient is anxious, pacing the floor, is preoccupied with thoughts about his living arrangement. He is standing at the nursing desk most of the time, repeatedly asking questions about discharge. Diagnosis & Plan/Recommendations Supportive therapy Pharmacological treatment Group therapy, activities therapy PRINCIPAL DIAGNOSIS: Schizoaffective disorder, bipolar type (HCC) Other * Schizoaffective disorder, bipolar type (HCC) Assessment & Plan A: Aba is back in the hospital, again non-compliant with medications. This time, he stole a car and ran off. Brought in by police. He has no insight whatsoever that his behaviors cause repeated hospitalizations. He denies all psychiatric symptoms and is clamoring for discharge.Guardianship paperwork has already been submitted during last hospitalization. Plan: Admit for patient safety and the safety of the community Unpredictable and elopement precautions PRN medications for agitation, anxiety and insomnia, EPS Continue medical treatment of hyperthyroid state per endocrinology Increase dose of next Invega Sustenna injection to 234 mg q 4 weeks (8-22) Discuss possible addition of lithium with Dr. Nieto Milieu therapy Individual and group sessions as tolerated ELENA liason with family and AOT program Internal medicine consult Lab and radiology as indicated Comorbid issues impacting my care plan include hyperthyroidism. Following for Interval History: Review of Systems: Constitutional:No fever, no weight loss Eyes:No diplopia ENT:No sinus drainage CV:No chest pain. No ankle swelling Resp:No dyspnea. No wheezing GI:No abdominal pain.No abdominal distention :No dysuria Neuro:No headache Integumentary:No skin rash MuscSkel:No arthralgias Endo:No polyuria Heme/lymphatic:No apparent lymphadenopathy Allergic/Immunologic:No hives Physical Examination: Vital Signs: BP 117/72 (BP Location: Right arm, Patient Position: Sitting) Pulse (!) 103 Temp 98.4 F (36.9 C) (Oral) Resp 16 Ht 5' 7 Wt 63 kg (138 lb 12.8 oz) SpO2 94% BMI 21.74 kg/m Mental Status Evaluation: General Appearance & Behavior: older than stated age and minimally engaged Grooming & Hygiene: street clothes Psychomotor Activity: psychomotor agitation Gait & Station stable gait Speech: soft spoken and pressured Flow of Thought: concrete Thought Associations: Intact Content of Thought: delusions and paranoia Mood: stressed out Affect: anxious, worried and labile Insight: fair Judgment: poor Orientation: alert and oriented to person, place, time, and circumstances Memory: intact recent and remote Attention: adequate Concentration: intact Language: intact Fund of Knowledge: estimated average intelligence Laboratory and Additional Data Reviewed: Laboratory 12/15/19 1:01 PM Microbiology 12/15/19 1:01 PM Pathology 12/15/19 1:01 PM Medications 12/15/19 1:01 PM Transcriptions 12/15/19 1:01 PM Treatment options and alternatives reviewed with patient. Risks, benefits, side effects of all psychiatric medications discussed with patient and informed consent obtained. All questions were answered. Carlos Chung MD 12/15/2019 12:53 PM * Leta Cornejo [facility] - 12/15/2019 9:00 AM EDT Pt resting soundly in bed, head a foot of bed, when approached for group. PT did not wake when addressed thus did not attend. * Gisel Vinson RN - 12/14/2019 11:44 PM EDT 2330 Resting in bed. 0000 Patient currently resting in bed at this time. Special Precautions continue--see precaution monitoring for observations and documentation. 0200 Patient in bed, respirations easy. 0345 Patient continues to rest in bed with eyes closed and even respirations. 0600 Slept approximately 8 1/2 hours, from 2100 to present without concerns. Patient remains in bedresting. * Fabienne Posada RN - 12/14/2019 8:04 PM EDT 2000 Pt up and about the unit, not as attention seeking as this nurse has noticed in previous days and with fewer requests. Pt dressed casually. Does not interact much with peers, keeps to himself. Pt enjoys listening to music on a speaker provided to him. Pt changed his bed linens, denies suicidal thoughts, Pt denies hallucinations, but appears to be responding to internal stimuli at times as he smiles inappropriately. Spends time pacing/walking throughout the hallways. 2220 Pt resting quietly in bed at this time. * Leta Cornejo [facility] - 12/14/2019 3:35 PM EDT PT unavailable for group do to being in the shower. * Carlos Chung MD - 12/14/2019 12:43 PM EDT Psychiatry Progress Note Patient Name: Aba Carlton Admit Date: MR #: [id number] : 2000 Perpetual Assessment Aba Carlton is a 19 y.o. male was seen individually, case discussed with nursing staff, medical records were reviewed. Patient was observed pacing the floor wearing warm jacket, hat, appeared somewhattense, anxious. He remained preoccupied with the thoughts about upcoming residential placement. Patient has been calling the grandparents and wished have gone back home to live with them. Diagnosis & Plan/Recommendations Supportive therapy Pharmacological treatment Group therapy, activities therapy PRINCIPAL DIAGNOSIS: Schizoaffective disorder, bipolar type (HCC) Other * Schizoaffective disorder, bipolar type (HCC) Assessment & Plan A: Aba is back in the hospital, again non-compliant with medications. This time, he stole a car and ran off. Brought in by police. He has no insight whatsoever that his behaviors cause repeated hospitalizations. He denies all psychiatric symptoms and is clamoring for discharge.Guardianship paperwork has already been submitted during last hospitalization. Plan: Admit for patient safety and the safety of the community Unpredictable and elopement precautions PRN medications for agitation, anxiety and insomnia, EPS Continue medical treatment of hyperthyroid state per endocrinology Increase dose of next Invega Sustenna injection to 234 mg q 4 weeks (8-22) Discuss possible addition of lithium with Dr. Nieto Milieu therapy Individual and group sessions as tolerated SW liason with family and AOT program Internal medicine consult Lab and radiology as indicated Comorbid issues impacting my care plan include hyper thyroidism. Following for Interval History: Review of Systems: Constitutional:No fever, no weight loss Eyes:No diplopia ENT:No sinus drainage CV:No chest pain. No ankle swelling Resp:No dyspnea. No wheezing GI:No abdominal pain.No abdominal distention :No dysuria Neuro:No headache Integumentary:No skin rash MuscSkel:No arthralgias Endo:No polyuria Heme/lymphatic:No apparent lymphadenopathy Allergic/Immunologic:No hives Physical Examination: Vital Signs: BP 137/88 (BP Location: Right arm, Patient Position: Sitting) Pulse (!) 112 Temp 97.3 F (36.3 C) (Infrared) Resp 16 Ht 5' 7 Wt 63 kg (138 lb 12.8 oz) SpO2 97% BMI 21.74 kg/m Mental Status Evaluation: General Appearance & Behavior: older than stated age and defensive Grooming & Hygiene: street clothes Psychomotor Activity: no psychomotor abnormalities or muscle atrophy noted Gait & Station stable gait Speech: soft spoken Flow of Thought: concrete Thought Associations: Intact Content of Thought: delusions Mood: stressed out Affect: anxious, worried and fearful Insight: fair Judgment: fair Orientation: alert and oriented to person, place, time, and circumstances Memory: intact recent and remote Attention: adequate Concentration: intact Language: intact Fund of Knowledge: estimated average intelligence Laboratory and Additional Data Reviewed: Laboratory 12/14/19 12:59 PM Microbiology 12/14/19 12:59 PM Pathology 12/14/19 12:59 PM Medications 12/14/19 12:59 PM Transcriptions 12/14/19 12:59 PM Treatment options and alternatives reviewed with patient. Risks, benefits, side effects of all psychiatric medications discussed with patient and informed consent obtained. All questions were answered. Carlos Chung MD 12/14/2019 12:43 PM * [facility] - 12/14/2019 9:35 AM EDT [id number] Pt out in TV lounge, watching TV, when approached for group, willing to attend. PT able to respond to requests and questions in a more timely manner then last contact mortgage loan underwriter had with pt. PTquiet in group setting and did not feed into the BEH of peers. PT shared that he was looking forward to going to placement and hoping that this would be on Sunday because my goal is to have a fresh start there. Pt honest that he is tired of waiting, but pt praised for his patience throughout his time on the unit, to which pt was able to voiced appreciation. PT shared that he was feeling calm this date do to I am just waiting. PT continues to be guarded and tense at times, with flat distracted affect. * Elisha Veloz RN - 12/14/2019 8:35 AM EDT 0830 Patient present to nurses station calm and cooperative. Friendly. Flat. Dressed in street clothes with sahni up. Patient denies anxiety and depression. Denies SI/AH/VH/ Bryan pain. Patient reports he is eating good and sleeping good Eye contact is fair. Speech is clear but delayed.Thought blocking. Patient is performing all adl's and attending groups.Medication compliant at this time. 0835 Patient went to room and is laying in bed at this time. Stating ' im tired Patient resting with eyes closed. * Aleena Lemon LPN - 12/14/2019 1:46 AM EDT 0146 pt resting quietly in bed with eyes closed respirations unlabored 0400 continues to rest quietly in bed with eyes closed and respirations unlabored 0644 pt appears to have slept for approximately 9.5 hours * Anel Weiss LPN - 12/13/2019 8:45 PM EDT 1405- Client walking in hallway. Approached client. Introduced self to client. Identified client byname, , and wristband. Client dressed casually in own clothing. Client appears disheveled with no body odor noted. Client makes appropriate eye contact and responds bizarrely in conversation. Client smiling inappropriately and complaining of bugs crawling in his blankets. Asked client to show this nurse and client showed this nurse clean blankets. Client then stated, It feels like bugs. Client put old blankets in laundry and this nurse gave him new blankets. Client denied SI/HI/AVH/SIB and agreed to contract for safety. Client denies depression and anxiety. Client spends most of his time outside of room, socializing around peers, though not directly interacting with them. Client is demanding of staff and needs constant redirection to step away from nurse's station when other patients are being discussed or phone calls are going on. Client is independent with ADLs and has a good appetite. Client appears labile, bizarre, and incongruent of mood. Client denies any further needs atthis time except the speaker. Client left walking in hallway. 2003- Client approached the counter asking for evening medication. Identified client by name, , and wristband. Administered medication as per physician order. Client tolerated medication with a cup of water. No medication noted upon inspection of oral cavity. Client asking for tylenol for 4/10 headache pain and trazodone for sleep. Checked client chart and saw that he could have medication. Administered medication with a cup of water. No medication noted upon inspection of oral cavity. Client denied any further needs at this time. Client left heading to [facility]. 2052- Client stated he was going to bed. Retrieved client boots and put them in the nurse's station. * Carlos Chung MD - 12/13/2019 1:37 PM EDT Psychiatry Progress Note Patient Name: Aba Carlton Admit Date: MR #: [id number] : 2000 Perpetual Assessment Aba Carlton is a 19 y.o. male was seen individually, case discussed with nursing staff, medical records were reviewed. Patient remained preoccupied with his thoughts about his living arrangement following the discharge from the hospital. Patient stated that he is somewhat disappointed that he will not be able to live with grandparents at this time. Patient is minimizing his behavior of taking grandparents vehicle without permission and driving it around prior to the hospitalization. He has poor insight into his behavior prior to the hospitalization. Diagnosis & Plan/Recommendations Supportive therapy Pharmacological treatment Group therapy, activities therapy PRINCIPAL DIAGNOSIS: Schizoaffective disorder, bipolar type (HCC) Other * Schizoaffective disorder, bipolar type (HCC) Assessment & Plan A: Aba is back in the hospital, again non-compliant with medications. This time, he stole a car and ran off. Brought in by police. He has no insight whatsoever that his behaviors cause repeated hospitalizations. He denies all psychiatric symptoms and is clamoring for discharge.Guardianship paperwork has already been submitted during last hospitalization. Plan: Admit for patient safety and the safety of the community Unpredictable and elopement precautions PRN medications for agitation, anxiety and insomnia, EPS Continue medical treatment of hyperthyroid state per endocrinology Increase dose of next Invega Sustenna injection to 234 mg q 4 weeks (8-) Discuss possible addition of lithium with Dr. Nieto Milieu therapy Individual and group sessions as tolerated ELENA liason with family and AOT program Internal medicine consult Lab and radiology as indicated Comorbid issues impacting my care plan include hyperthyroidism. Following for Interval History: Review of Systems: Constitutional:No fever, no weight loss Eyes:No diplopia ENT:No sinus drainage CV:No chest pain. No ankle swelling Resp:No dyspnea. No wheezing GI:No abdominal pain.No abdominal distention :No dysuria Neuro:No headache Integumentary:No skin rash MuscSkel:No arthralgias Endo:No polyuria Heme/lymphatic:No apparent lymphadenopathy Allergic/Immunologic:No hives Physical Examination: Vital Signs: BP 137/88 (BP Location: Right arm, Patient Position: Sitting) Pulse (!) 112 Temp 97.5 F (36.4 C) (Oral) Resp 16 Ht 5' 7 Wt 63 kg (138 lb 12.8 oz) SpO2 97% BMI 21.74 kg/m Mental Status Evaluation: General Appearance & Behavior: older than stated age and cooperative Grooming & Hygiene: unkempt and street clothes Psychomotor Activity: no psychomotor abnormalities or muscle atrophy noted Gait & Station stable gait Speech: soft spoken Flow of Thought: concrete Thought Associations: Intact Content of Thought: delusions and paranoia Mood: anxious Affect: anxious, worried, fearful and labile Insight: fair Judgment: fair Orientation: alert and oriented to person, place, time, and circumstances Memory: intact recent and remote Attention: adequate Concentration: intact Language: intact Fund of Knowledge: estimated average intelligence Laboratory and Additional Data Reviewed: Laboratory 12/13/19 1:42 PM Microbiology 12/13/19 1:42 PM Pathology 12/13/19 1:42 PM Medications 12/13/19 1:42 PM Transcriptions 12/13/19 1:42 PM Treatment options and alternatives reviewed with patient. Risks, benefits, side effects of all psychiatric medications discussed with patient and informed consent obtained. All questions were answered. Carlos Chung MD 12/13/2019 1:37 PM * Patti Sauceda, HAND DEVELOPER - 12/13/2019 1:00 PM EDT 13:00 - 13:10 Recreation Therapy - Pt in the lounge upon approach and he was receptive to joining group. Pt was presented the activity 7up but excused himself from group prior to engaging in activity. Pt appeared preoccupied and distracted. * Elisha Veloz, RN - 12/13/2019 7:56 AM EDT 0740 Patient sitting in dining area at this time. Vital signs obtained at this time. 0820 Patient standing at nurses station. Calm and cooperative. Dressed in street clothes. Presents with flat affect. Denies anxiety and depression. Denies SI/AH/VH. Patient denies Pain. Patient reports he is eating well and sleeping well. Patient reports he is going to group and is perform all adl's. Patient is medication compliant at this time. Patient inquiring about his discharge plan with this RN. Updated patient on plan. Patient verbalized understanding at this time. 0900 Played music for patient at this time. 1130 Patient eating lunch in the dining area 1200 Patients mother called at this time. Relayed to patient. Patient stated I do not want to call her back * Aleena Lemon LPN - 12/13/2019 1:12 AM EDT 0112 pt resting quietly in bed with eyes closed respirations unlabored 0400 continues to rest quietly in bed with eyes closed and respirations unlabored 0644 pt appears to have slept for approximately 7 hours * Anle Weiss LPN - 12/12/2019 4:47 PM EDT 1548- Client walking in [facility]. Approached client. Introduced self to client. Identified client by name, , and wristband. Client dressed casually in own clothing. Client wearing a sweatshirt though the temperature is not cold on the unit. Client appears disheveled with no body odor noted. Clientmakes appropriate eye contact and is preoccupied and tangential in conversation. Client spends muchof his time outside of room and is selectively social with patients. Client interacts with staff and peers and is redirectable, though must be redirected multiple times. Client denies SI/HI/AVH/SIB and agrees to contract for safety. Client states that he's depressed and anxious because I'm here. Client would not expound on that. Client redirects conversation back to wireless speaker with each question asked. Reinforced to client that this nurse looked for wireless speaker and could not find it. Client disgruntled but accepts this for now. Client is independent with ADLs and has a good appetite. Client denies any further needs at this time. Client left walking around in [facility]. 2004- Client asked to take medication, then went to his room. Identified client by name, , and wristband. Administered medication as per physician order. Client tolerated medication with a cup of water. No medication noted upon inspection of oral cavity. Client denied any further needs at this time. Client left heading to get snack. * Carlos Chung MD - 12/12/2019 4:47 PM EDT Psychiatry Progress Note Patient Name: Aba Carlton Admit Date: MR #: [id number] : 2000 Perpetual Assessment Aba Carlton is a 19 y.o. male was seen individually, case discussed with nursing staff, medical records were reviewed. Patient stated that he is looking forward for replacement team [facility] or any other residential setting which can help him to live outside the hospital. Patient appeared tense, anxious during evaluation, was pacing the floor. Diagnosis & Plan/Recommendations Supportive therapy Pharmacological treatment Group therapy, activities therapy PRINCIPAL DIAGNOSIS: Schizoaffective disorder, bipolar type (HCC) Other * Schizoaffective disorder, bipolar type (HCC) Assessment & Plan A: Aba is back in the hospital, again non-compliant with medications. This time, he stole a car and ran off. Brought in by police. He has no insight whatsoever that his behaviors cause repeated hospitalizations. He denies all psychiatric symptoms and is clamoring for discharge.Guardianship paperwork has already been submitted during last hospitalization. Plan: Admit for patient safety and the safety of the community Unpredictable and elopement precautions PRN medications for agitation, anxiety and insomnia, EPS Continue medical treatment of hyperthyroid state per endocrinology Increase dose of next Invega Sustenna injection to 234 mg q 4 weeks (8-22) Discuss possible addition of lithium with Dr. Nieto Milieu therapy Individual and group sessions as tolerated ELENA higgins with family and AOT program Internal medicine consult Lab and radiology as indicated Comorbid issues impacting my care plan include hyper thyroidism. Following for Interval History: Review of Systems: Constitutional:No fever, no weight loss Eyes:No diplopia ENT:No sinus drainage CV:No chest pain. No ankle swelling Resp:No dyspnea. No wheezing GI:No abdominal pain.No abdominal distention :No dysuria Neuro:No headache Integumentary:No skin rash MuscSkel:No arthralgias Endo:No polyuria Heme/lymphatic:No apparent lymphadenopathy Allergic/Immunologic:No hives Physical Examination: Vital Signs: BP 128/75 Pulse (!) 111 Temp 97.7 F (36.5 C) Resp 16 Ht 5' 7 Wt 63 kg (138 lb 12.8 oz) SpO2 97% BMI 21.74 kg/m Mental Status Evaluation: General Appearance & Behavior: older than stated age and cooperative Grooming & Hygiene: unkempt Psychomotor Activity: psychomotor agitation Gait & Station stable gait Speech: soft spoken and pressured Flow of Thought: concrete Thought Associations: Intact Content of Thought: delusions and paranoia Mood: anxious Affect: labile Insight: fair Judgment: fair Orientation: alert and oriented to person, place, time, and circumstances Memory: intact recent and remote Attention: adequate Concentration: intact Language: intact Fund of Knowledge: estimated average intelligence Laboratory and Additional Data Reviewed: Laboratory 12/12/19 4:51 PM Microbiology 12/12/19 4:51 PM Pathology 12/12/19 4:51 PM Medications 12/12/19 4:51 PM Transcriptions 12/12/19 4:51 PM Treatment options and alternatives reviewed with patient. Risks, benefits, side effects of all psychiatric medications discussed with patient and informed consent obtained. All questions were answered. Carlos Chung MD 12/12/2019 4:47 PM * Leta Cornejo, HAND DEVELOPER - 12/12/2019 1:00 PM EDT [id number] Recreation Therapy: Pt finished putting clothes away and then brought self to group room to engage in simple game of dominos. Pt struggled to listen to rules, do to the internal stimuli that pt was experiencing. Pt also struggled to follow verbal and visual direct directions on how to play his dominos, thus making up his own rules and plays. Pt guarded and distracted throughout group. Affect flat and watchful. Benefits of the activity and resources were presented but pt not able to understand. * Anton Miranda MSW LISW-S - 12/12/2019 11:37 AM EDT MARTELL spoke with upper caser Quyhn Claudio at [facility] regarding update on patient's discharge placement. Quynh states that she finally spoke with the director Mai at [facility] in [place], [place] today at 11:30am. She stated that all of patient's referral information has been forwarded to Mai for review. Quynh states that she should hear back from Mai later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 at this time Assessment: Pertinent clinical information: prior poor medication adherance Current weight: 63 kg (138 lb 12.8 oz) Body mass index is 21.74 kg/m . Current diet order: regular Recent intake: 75%. Current intake Likely meets estimated needs. Difficulty Chewing/Swallowing: No Skin Integrity: Intact GI Function: WNL Physical Appearance: no change from initial assessment Labs: No results for input(s): NA, K, BICARB, CL, GLUCOSE, BUN, CREATININE, MG, PHOS in the last 72hours. Scheduled Meds: divalproex 500 mg Oral BID methIMAzole 20 mg Oral BID paliperidone 6 mg Oral Daily Continuous Infusions: Estimated Energy Needs Total Energy Estimated Needs: 2500kcal Method for Estimating Needs: 40kcal/kg Total Protein Estimated Needs: 75gm Method for Estimating Needs: 1.2gm/kg [place] Azevedo MS, JEFFRY, LD Office * Re Arriaga CTRS - 12/09/2019 9:15 AM EDT Goal: Pt was in the bathroom and reports plan to attend group, however, did not. * Elisha Veloz RN - 12/09/2019 9:00 AM EDT 0830 Patient standing in hallway. Vital signs obtained by student nurse. Patient is dressed in street clothes. Flat. Denies anxiety and depression. Denies SI/AH/VH. Denies pain. Reports he is eating good and sleeping good. Eye contact is fair. Speech is clear. Patient is attending groups and performing adl's. 1130 patient is in dining area eating lunch at this time * Aleena Lemon LPN - 12/09/2019 12:51 AM EDT 0052 pt resting quietly in bed with eyes closed respirations unlabored 0410 continues to rest quietly in bed with eyes closed and respirations unlabored 0628 pt appears to have slept for approximately 9 hours * Mahnaz Robins RN - 12/08/2019 10:13 PM EDT 1605 Attention seeking, but directable at this time. Eye contact maintained. Appearance disheveled.Denied having thoughts of wanting to harm self or others. Contracted for safety. Denied having hallucinations. 1654 Ate supper in dining area. Appetite good. 1949 Conversation rambling with much paranoia & delusional content. Stated ate a Bee bug in his encrustable earlier today, & it bit his spine. Stated, The top of my spine is bleeding. It's affected my vision & altered my personality. Reality presented. Emotional support offered. 2053 Cooperative with taking HS medication. Checked for pill taking. Boots placed at nurses station. 2204 Resting with eyes closed. Respirations regular. * Emerita Santamaria CNP - 12/08/2019 4:27 PM EDT [facility] Medicine Inpatient Consult Follow-up 12/08/2019 Emerita Santamaria CNP Patient: Aba Carlton Date of : 2000 (19 y.o.) PCP: Adrienne Arcos CNP Referring Provider: Carlos Chung MD Consult: Lanette Cordon MD: Hospitalist assistance with medical management Of note, this patient was admitted to [facility] following the declaration of aNational State of Emergency due to the COVID-19 pandemic, as issued by the street railway line installer on 06/27/2019. ASSESSMENT/PLAN: Principal Problem: Schizoaffective disorder, bipolar type (HCC) Active Problems: Psychoactive substance abuse (HCC) ASSESSMENT/PLAN: Principal Problem: Schizoaffective disorder, bipolar type ([facility]) Active Problems: Hyperthyroidism Psychoactive substance abuse ([facility]) Hyperthyroidism Assessment & Plan A: Hyperthyroidism, probable Graves Disease, diagnosed earlier this month. Under the care of Dr. Nieto. Patient is again in denial that he has a thyroid problem and has refused medications as an outpatient. TSH <0.01 and free T4 6.9 at admission. Pulse currently in the 130's. Agitation, hungry and thirsty. P: Resume medications. Re-consult Dr. Nieto for endocrine management. Provide between meal snacks and boost for pt due to high metabolism and feeling hungry Monitor HR carefully, encourage pt to take medications. 11/30 Remains bizarre, demanding, manic and responding to internal stimuli Guardianship papers have been started with parents. Grandparents are unable to supervise or control patient. HR is controlled with propranolol Endocrinology is managing hyperthyroidism Kidney function will need to be monitored if lithium is started. 12/04 Pt is calmer, continues to respond to internal stimuli Has no boundaries when interacting with staff. Interrupts, continually demands food and drinks. BP and HR are controlled. [place] was not started. Will recheck tSH and free T4 in am Plan is to follow up with endocrinology after discharge. 12/05 Pt remains hungry. Will check his weight today. 11/21 has weight at 138 lbs. Pt calmer, says he plans on continuing on his medications upon discharge. 12/07 Has been assigned a guardian: [employer] Benitez Hitchcock. Will not return to his grandparents house, working on housing. Does not want his client to go to a homeless jail. TSH repeated. Free T4 is in the normal range of 1.4 TSH is still <0.01 Will follow up with Dr Nieto upon discharge. HR has been elevated to day at 119, will monitor to see if adjustments need to be made in betablocker prior to discharge. Calmer but continues to be responding to internal stimuli. SUBJECTIVE: History Since Last Visit: calmer Current Scheduled Meds: divalproex 500 mg Oral BID methIMAzole 20 mg Oral BID paliperidone 6 mg Oral Daily Review of Systems: All other systems reviewed and negative other than HPI OBJECTIVE: Physical Examination: Vital Signs: BP 118/75 Pulse (!) 119 Temp 97.7 F (36.5 C) (Infrared) Resp 14 Ht 5' 7 Wt 63 kg (138 lb12.8 oz) SpO2 96% BMI 21.74 kg/m General Appearance: Alert, well appearing, and in no acute distress. HEENT: Head - Normocephalic, atraumatic. Eyes - AKOSUA bilaterally and EOMI. Ears - normal external appearance, hearing intact. Nose - normal, no erythema. Throat - mucous membranes moist, pharynx without lesions. Neck: Supple, trachea midline. Cardiovascular: S1, S2 normal. No murmurs, rubs, clicks or gallops appreciated. No pedal edema. Respiratory: Lungs clear to auscultation, no wheezes, rales or rhonchi heard. Abdomen: Soft, non-tender, normal bowel sounds, non-distended, no masses or organomegaly appreciated. Neurological: Grossly normal motor and sensory exam. No focal deficits. Musculoskeletal: No joint tenderness, deformity or swelling. Skin: Normal coloration and turgor. No rashes. Psych: Alert, oriented x 3. Normal delusional, , poor insight, constant demands with no ability to wait for results, less manic Laboratory and Additional Data Reviewed: Results/Medications Reviewed 12/08/19 4:27 PM: CULTURES: Reviewed 12/08/19 4:27 PM Radiology/Imaging: Reviewed 12/08/19 4:27 PM * Emerita Vidal MSW LISW-S - 12/08/2019 3:54 PM EDT Patient now has a legal guardian, Benitez Hitchcock. Patient reported that he knows he cannot go back to his grandparents' home at this time. Explained to patient that grandparents still want to be in patient's life but as grandparents, not parents. Patient expressed understanding of this. Per Elisha Veloz RN, Quynh from [facility] is hopeful of finding a home for patient today. As of this time, it hasnot been reported that she has. Patient is fine going to a homeless jail but this is not a safe option for patient. Per Mendy Tello currently has not beds at the crisis unit. Dr. Chung plans for discharge tomorrow. environmental services technician continues to follow. * Lilly Ta, HAND DEVELOPER - 12/08/2019 1:00 PM EDT Recreational Therapy: Pt refused to attend group stating he needed to make phone calls. * Elisha Veloz, RN - 12/08/2019 9:29 AM EDT Patient laying in bed. Vital signs obtained. Patient denies Anxiety and depression. Denies SI AH/VH. Denies pain. Flat. Reports sleeping good. Eating good. Patient stated I think I am going home today and I am not going to crisis center I am going to my grandmas Speech is clear and appropriate. Eye contact is fair. Encouraged to attend groups. 1200 [facility] Patient handed phone to this RN to speak with outpatient case manager Quynh Topeteworker stated Daphney Hitchcock was awarded temp guardianship this morning and she was currently working on placement for the patient. She stated crisis center has no available beds at this time therefore she is looking into other options. 1300 Patient in group at this time. 1330 Patient is on the phone with Mr. Hitchcock Patient gives this RN the phone and stated can you tell her that I spoke with Mr. Hitchcock and he stated he is ok with patient placement up near [place] if that is what he would prefer. Stated he just received temp guardianship this morning. Mr. Hitchcock stated he would prefer the patient not go to a homeless jail at this time. * Leta Cornejo, HAND DEVELOPER - 12/08/2019 9:15 AM EDT [id number] Goal Group: PT out walking in hallway when approached for group. Dressed in street clothes. Affect detached, tense and guarded. PT slow to respond or not at all when spoken to. Pt followed mortgage loan underwriter to group room. Pt distracted for much of group, staring around room and mumbling to self, resp onding to internal stimuli. Pt was able to eventually provide responses to direct questions. PT voiced that he was feeling very tired this date but was unable to express any thoughts as to why. Pt set goal for the day of behave and be DC. PT was questioned if he had been misbehaving, to which pt was uncertain. Pt remains bizarre in BEH, preoccupied with Dc and lacking insight into his [place] needs. * Aleena Sandy RN - 12/08/2019 12:00 AM EDT 0000 Pt lying on left side, eyes closed, legs extended out, breathing easy. 0200 Pt supine, eyes closed, legs arched up toward abdomen, eupneic. 0400 Pt supine, eyes closed, legs extended out, visible rise and fall of chest observed. No needs identified at this time. 0600 Pt lying on left side, respirations even. Pt rested approximately 6 hours and 30 minutes this shift. 0720 Pt refused labs. * Torie Thomson RN - 12/07/2019 9:13 PM EDT 2108: Pt resting quietly in bed with even and unlabored respirations. Woke pt for night medication.Pt takes medications without problem. Pt denies wanting prn Trazodone at this time and verbalizes understanding to ask for it if changes mind. Pt denies further needs and continues to rest quietly inbed. Will continue to monitor. 5: Pt resting quietly in bed with even and unlabored respirations. Pt has been pleasant, directable, controlled, and cooperative this shift. Pt makes frequent requests but shows patience when not able to get what wants right away. Pt has been social with peers. Pt has needed no PRN medications for this mortgage loan underwriter. * Lilly Ta CTRS - 12/07/2019 4:00 PM EDT Recreational Therapy: Pt was sitting in lounge when approached for group, refused to attend * Malena Sahu RN - 12/07/2019 3:37 PM EDT 1615: Pt is alert and oriented in lounge with other peers. Calm and cooperative. Maintains good eyecontact. Flat affect. Pt is dressed in street clothes. Pt denies SI/HI/AH/VH and contracts safety with this staff. Thought blocking observed. Pt appears anxious. Pt appears to be responding to internal stimuli. Pt rates anxiety and depression both great. Pt states he slept well and has a good appetite. Encouraged pt to express needs to staff. 1700: Pt listening to music on unit speaker. Calm and controlled. 1720: Pt resting in bed with eyes closed. Respirations even and non labored. * Carlos Chung MD - 12/07/2019 2:58 PM EDT Psychiatry Progress Note Patient Name: Aba Carlton Admit Date: MR #: [id number] : 2000 Perpetual Assessment Aba Carlton is a 19 y.o. male was seen individually, case discussed with nursing staff, medical records reviewed. Patient is less tense, anxious, is preoccupied with his thoughts about returning back to live with grandmother. He was explained for possible discharge to crisis unit, based on bed availability this week. He was staring, mumbling to self, appears to be responding to some internal stimuli. Diagnosis & Plan/Recommendations Supportive therapy Pharmacological treatment Group therapy, activities therapy PRINCIPAL DIAGNOSIS: Schizoaffective disorder, bipolar type (HCC) Other * Schizoaffective disorder, bipolar type (HCC) Assessment & Plan A: Aba is back in the hospital, again non-compliant with medications. This time, he stole a car and ran off. Brought in by police. He has no insight whatsoever that his behaviors cause repeated hospitalizations. He denies all psychiatric symptoms and is clamoring for discharge.Guardianship paperwork has already been submitted during last hospitalization. Plan: Admit for patient safety and the safety of the community Unpredictable and elopement precautions PRN medications for agitation, anxiety and insomnia, EPS Continue medical treatment of hyperthyroid state per endocrinology Increase dose of next Invega Sustenna injection to 234 mg q 4 weeks (8-22) Discuss possible addition of lithium with Dr. Nieto Milieu therapy Individual and group sessions as tolerated ELENA higgins with family and AOT program Internal medicine consult Lab and radiology as indicated Comorbid issues impacting my care plan include thyrotoxicosis. Following for Interval History: Review of Systems: Constitutional:No fever, no weight loss Eyes:No diplopia ENT:No sinus drainage CV:No chest pain. No ankle swelling Resp:No dyspnea. No wheezing GI:No abdominal pain.No abdominal distention :No dysuria Neuro:No headache Integumentary:No skin rash MuscSkel:No arthralgias Endo:No polyuria Heme/lymphatic:No apparent lymphadenopathy Physical Examination: Vital Signs: BP 111/72 Pulse 73 Temp 98.4 F (36.9 C) Resp 14 Ht 5' 7 Wt 63 kg (138 lb 12.8 oz) [id number]% BMI 21.74 kg/m Mental Status Evaluation: General Appearance & Behavior: older than stated age and defensive Grooming & Hygiene: street clothes Psychomotor Activity: psychomotor agitation Gait & Station stable gait Speech: soft spoken Flow of Thought: concrete Thought Associations: Intact Content of Thought: auditory hallucinations, delusions and paranoia Mood: anxious Affect: labile Insight: fair Judgment: poor Orientation: alert and oriented to person, place, time, and circumstances Memory: intact recent and remote Attention: adequate Concentration: intact Language: intact Fund of Knowledge: estimated average intelligence Laboratory and Additional Data Reviewed: Laboratory 12/07/19 3:02 PM Microbiology 12/07/19 3:02 PM Pathology 12/07/19 3:02 PM Medications 12/07/19 3:02 PM Transcriptions 12/07/19 3:02 PM Treatment options and alternatives reviewed with patient. Risks, benefits, side effects of all psychiatric medications discussed with patient and informed consent obtained. All questions were answered. Carlos Chung MD 12/07/2019 2:58 PM * Celia Morfin - 12/07/2019 12:35 PM EDT Spiritual Health Care Note Patient attended Spirituality group. Showroom Executive Director role introduced and how to contact if follow up is requested. Showroom Executive Director Celia Morfin MDiv [facility] Care Department [phone] office [phone] pager [phone] on-call pager (after 5pm and weekends) 12/07/19 1000 Clinical Encounter Type Visit Type Non Crisis Non Crisis Visit Group Visited With Patient Visited By Other (comment) (Showroom Executive Director) Visit Length (minutes) 60 Referral From Patient * Elvira Suazo RN - 12/07/2019 9:36 AM EDT 09:00 Patient up and about on unit. Ate breakfast in dining area. Ate 100% of breakfast. Compliant with taking medications. Offered mask to patient for Covid safety, patient refused to wear. States he slept well last night. Polite at times. Initiates with requests. Behavior more appropriate and less spacey at present time. Low energy level. Denies feeling suicidal or homicidal. Able to contact for safety. Denies auditory or visual hallucinations. Encouraged to attend therapies and voice concerns to staff. No voiced complaints at this time. 14:00 Remains low energy level. Controlled and co-operative. Ate 100% of lunch in dining area. No voiced complaints. * Lilly Ta CTRS - 12/07/2019 9:00 AM EDT Goal Group and AM Warm Up: Pt was resting in bed when approached for group, awakened easily and stated intent to attend group,did not bring self to group. * Aleena Sandy RN - 12/07/2019 12:00 AM EDT 0000 Pt supine, eyes closed, legs extended out, eupneic. 0157 Pt ambulatory at nurse's station, requesting a snack, which was provided to him by Christopher Garcia RN. No additional needs expressed at this time. 0210 Pt ambulatory at nurse's station, requesting Denia Mist, which was provided to him by Christopher Garcia RN. No additional needs voiced at this time. 0340 Pt ambulatory at nurse's station, requesting a cup of ice water, which was provided to him by Perez Lima LPN. No other needs voiced at this time. 0400 Pt supine, eyes closed, legs extended out, visible rise and fall of chest observed. No needs identified at this time. 0600 Pt supine, respirations even. Pt rested approximately 6 hours and 15 minutes this shift. * Malena Sahu RN - 12/06/2019 3:31 PM EDT 1530: Pt in group. 1630: Pt is alert and oriented in hallway. Pt is cooperative. Maintains good eye contact. Flat affect. Pt is dressed in street clothes. Pt denies SI/HI/AH/VH and contracts safety with this staff. Paranoid delusions observed. Pt smiles at inappropriate times. Pt appears to be responding to internal stimuli. Pt talks to self in hallway. Thought blocking noted. Pt rates anxiety and depression 0/10 and states he has had a great day. Pt states he slept well and has a good appetite. Encouraged pt to express needs to staff. 1730: Pt resting in bed with eyes closed. Respirations even and non labored. 0: Pt remains resting in bed with eyes closed. Respirations even and non labored. 2055: Pt received scheduled medication and took without difficulty. 2154: Pt requests and given PRN trazodone and PRN atarax PO for sleep at this time. 0: Pt resting in bed awake. Calm and controlled. * Lilly Ta CTRS - 12/06/2019 3:15 PM EDT Recreational Therapy: Pt attended group engaging in familiar leisure outlet of [employer], requiring sequencing, card recognition and some strategizing. Pt was able to recognize plays independently but continues to paranoid of other players. Pt laughed out loud for no apparent reason of several occasions. Pt was only able to stay focused for one game, abruptly excusing himself and did not return. * Emerita Santamaria CNP - 12/06/2019 1:50 PM EDT Hospital Medicine Inpatient Consult Follow-up 12/06/2019 Emerita Santamaria CNP Patient: Aba Carlton Date of : 2000 (19 y.o.) PCP: Adrienne Arcos CNP Referring Provider: Carlos Chung MD Consult: Lanette Cordon MD: Hospitalist assistance with medical management Of note, this patient was admitted to [facility] following the declaration of aNational State of Emergency due to the COVID-19 pandemic, as issued by the street railway line installer on 06/27/2019. ASSESSMENT/PLAN: Principal Problem: Schizoaffective disorder, bipolar type (HCC) Active Problems: Psychoactive substance abuse (HCC) ASSESSMENT/PLAN: Principal Problem: Schizoaffective disorder, bipolar type (HCC) Active Problems: Hyperthyroidism Psychoactive substance abuse (HCC) Hyperthyroidism Assessment & Plan A: Hyperthyroidism, probable Graves Disease, diagnosed earlier this month. Under the care of Dr. Nieto. Patient is again in denial that he has a thyroid problem and has refused medications as an outpatient. TSH <0.01 and free T4 6.9 at admission. Pulse currently in the 130's. Agitation, hungry and thirsty. P: Resume medications. Re-consult Dr. Nieto for endocrine management. Provide between meal snacks and boost for pt due to high metabolism and feeling hungry Monitor HR carefully, encourage pt to take medications. 11/30 Remains bizarre, demanding, manic and responding to internal stimuli Guardianship papers have been started with parents. Grandparents are unable to supervise or control patient. HR is controlled with propranolol Endocrinology is managing hyperthyroidism Kidney function will need to be monitored if lithium is started. 12/04 Pt is calmer, continues to respond to internal stimuli Has no boundaries when interacting with staff. Interrupts, continually demands food and drinks. BP and HR are controlled. [place] was not started. Will recheck tSH and free T4 in am Plan is to follow up with endocrinology after discharge. 12/05 Pt remains hungry. Will check his weight today. 11/21 has weight at 138 lbs. Pt calmer, says he plans on continuing on his medications upon discharge. SUBJECTIVE: History Since Last Visit: calmer Current Scheduled Meds: divalproex 500 mg Oral BID methIMAzole 20 mg Oral BID nicotine 1 patch Transdermal Daily paliperidone 6 mg Oral Daily propranoloL 10 mg Oral Q12H IMER Review of Systems: All other systems reviewed and negative other than HPI OBJECTIVE: Physical Examination: Vital Signs: BP 119/79 Pulse (!) 101 Temp 97.6 F (36.4 C) (Oral) Resp 14 Ht 5' 7 Wt 63 kg (138 lb 12.8 oz) SpO2 96% BMI 21.74 kg/m General Appearance: Alert, well appearing, and in no acute distress. HEENT: Head - Normocephalic, atraumatic. Eyes - AKOSUA bilaterally and EOMI. Ears - normal external appearance, hearing intact. Nose - normal, no erythema. Throat - mucous membranes moist, pharynx without lesions. Neck: Supple, trachea midline. Cardiovascular: S1, S2 normal. No murmurs, rubs, clicks or gallops appreciated. No pedal edema. Respiratory: Lungs clear to auscultation, no wheezes, rales or rhonchi heard. Abdomen: Soft, non-tender, normal bowel sounds, non-distended, no masses or organomegaly appreciated. Neurological: Grossly normal motor and sensory exam. No focal deficits. Musculoskeletal: No joint tenderness, deformity or swelling. Skin: Normal coloration and turgor. No rashes. Psych: Alert, oriented x 3. Normal delusional, , poor insight, constant demands with no ability to wait for results, less manic Laboratory and Additional Data Reviewed: Results/Medications Reviewed 12/06/19 1:50 PM: CULTURES: Reviewed 12/06/19 1:50 PM Radiology/Imaging: Reviewed 12/06/19 1:50 PM * Carlos Chung MD - 12/06/2019 11:40 AM EDT Psychiatry Progress Note Patient Name: Aba Carlton Admit Date: MR #: [id number] : 2000 Perpetual Assessment Aba Carlton is a 19 y.o. male was seen individually, case discussed with nursing staff, medical records were reviewed. Patient is pacing the floor, has a blank stare, is verbally directable at this time. His speech is less pressured. He has poor insight into his behavioral problems leading toward hospitalization. Patient is prescribed injection Invega Sustenna 234 mg IM today and will be repeated every 4 weeks. Diagnosis & Plan/Recommendations Supportive therapy Pharmacological treatment Group therapy, activities therapy PRINCIPAL DIAGNOSIS: Schizoaffective disorder, bipolar type (HCC) Other * Schizoaffective disorder, bipolar type (HCC) Assessment & Plan A: Aba is back in the hospital, again non-compliant with medications. This time, he stole a car and ran off. Brought in by police. He has no insight whatsoever that his behaviors cause repeated hospitalizations. He denies all psychiatric symptoms and is clamoring for discharge.Guardianship paperwork has already been submitted during last hospitalization. Plan: Admit for patient safety and the safety of the community Unpredictable and elopement precautions PRN medications for agitation, anxiety and insomnia, EPS Continue medical treatment of hyperthyroid state per endocrinology Increase dose of next Invega Sustenna injection to 234 mg q 4 weeks (8-) Discuss possible addition of lithium with Dr. Nieto Milieu therapy Individual and group sessions as tolerated ELENA higgins with family and AOT program Internal medicine consult Lab and radiology as indicated Comorbid issues impacting my care plan include: Thyrotoxicosis Following for Interval History: Review of Systems: Constitutional:No fever, no weight loss Eyes:No diplopia ENT:No sinus drainage CV:No chest pain. No ankle swelling Resp:No dyspnea. No wheezing GI:No abdominal pain.No abdominal distention :No dysuria Neuro:No headache Integumentary:No skin rash MuscSkel:No arthralgias Endo:No polyuria Heme/lymphatic:No apparent lymphadenopathy Physical Examination: Vital Signs: BP 119/79 Pulse (!) 101 Temp 97.6 F (36.4 C) (Oral) Resp 14 Ht 5' 7 Wt 63 kg (138 lb 12.8 oz) SpO2 96% BMI 21.74 kg/m Mental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 psychomotor agitation Gait & Station stable gait Speech: loud, garbled and rambling Flow of Thought: disorganized Thought Associations: Loose Content of Thought: auditory hallucinations, delusions and paranoia Mood: stressed out Affect: anxious, worried and fearful Insight: poor Judgment: poor Orientation: alert and oriented to person, place, time, and circumstances Memory: intact recent and remote Attention: adequate Concentration: intact Language: intact Fund of Knowledge: estimated average intelligence Laboratory and Additional Data Reviewed: Laboratory 12/03/19 4:55 PM Microbiology 12/03/19 4:55 PM Pathology 12/03/19 4:55 PM Medications 12/03/19 4:55 PM Transcriptions 12/03/19 4:55 PM Treatment options and alternatives reviewed with patient. Risks, benefits, side effects of all psychiatric medications discussed with patient and informed consent obtained. All questions were answered. Carlos Chung MD 12/03/2019 4:46 PM * Brooklyn Mccrary RN - 12/03/2019 4:30 PM EDT 1530: Patient is up to nurse station asking for snack, 2 bowels of cereal and 2 chocolate milks. Given snack, reminded dinner will be here in 1 hour. He is anxious when talking about food, appears more relaxed after snack. He walks up and down the hallway, doesn't seem to have a long attention spanto sit and watch a tv show, or play a game with peers. 1630: Patient eating meal, given additional food from kitchen with meal. 1730: Patient thoughts are fixated on food. While he is eating food, he is asking about getting more food. As soon as he is done eating, he asks for more. He paces back and forth until it's time for his next snack. We are giving him food every hour. His anxiety appears to increase when he isn't eating. When he eats, he eats fast and his body is tense and he is focused. There are some inappropriate behaviors present this evening, he asked a peer if he can have one of his hairs and the peer gave it to him. He was told this is inappropriate and he said OK. He is laughing at inappropriate times, laughing to himself, talking to himself under his breath. He does enjoy listening to music on the unit speaker, he chooses slow calming instrumental music to listen to. He appears more relaxed when heis listening to music. He denies A/V hallucinations. 2030: He asks for his HS medications at this time and tylenol for pain and hydroxyzine for anxiety.He dropped his trazodone on the floor and picked it up and handed it to me he says I don't believein the 3 second rule throw this away. Administered another trazodone at this time. He is calm, having a snack listening to music. 2230: Patient is laying in bed, administered med late from pharmacy, he went back to sleep. * Emerita Vidal MSW LISW-S - 12/03/2019 3:37 PM EDT Spoke briefly with patient at nurses' station. He continues to ask this worker are my discharge papers ready and this worker continues to redirect him back to talking with Dr. Chung regarding discharge. Patient expressed again to this worker that his grandmother says he can take a taxi home. As patient is likely not returning to grandmother's home, but also not wishing to start an argument withpatient over this, redirected stating we would discuss that once there is a discharge order in place. Attempted tor review his treatment plan however patient walked away from this worker at this time. Noted on treatment plan and put on chart. environmental services technician continues to follow. * Lilly Ta CTRS - 12/03/2019 1:00 PM EDT Recreational Therapy: Pt attended group learning new leisure outlet of [employer], requiring sequencing, card recognition and some strategizing. Pt responded to internal stimuli throughout, needed max assist, engaged in bizarre movements, chuckled loudly, displayed paranoia with the way cards were dealt.Sneeze without attempting to cover mouth, picked scab and needed to be asked to go wash his hands. Left group after 30 minutes. * Julianne Santamaria RN - 12/03/2019 9:26 AM EDT 0857: Patient has been up ambulating the unit, appears drowsy upon approach states he slept, great last night. Delayed response to questions, closing eyes a lot during this conversation. Pacing hallways as he ate his breakfast this morning. Denies having any depression at this time. Denies any SIor HI. Voices his goal for the day is, to go home emotional support given. Reports hoping to receive an injection of his medication soon stating, I want it pt agrees he will discuss this with his doctor today. Voicing plans to attend his scheduled group therapy sessions. Medication complaint,PRN Tylenol and Hydroxyzine given per pt request for complaints of anxiety and lower back pain rating both a 4/10. Voices he is anxious due to, wanting to go home continued emotional support given. Pt refusing to wear mask this morning, denies any needs at this time. Encouraged to seek staff forany needs and pt agrees. 0945: Attending group therapy, pt left group briefly voicing he had to use the bathroom, returned to group at this time. 1218: Dr. Chung on the unit, seeing pt at this time. Pt with short attention span, will make a request, walk away and return to staff with a different request. Ate very little of his lunch tray, asked and given applesauce, peanut butter and two pieces of bread. When asked about his meal pt stating, I shouldn't of ordered that. Pt made self a sandwich of applesauce and peanut butter, ate 100%. 1317: Attending group therapy. Behavior has been controlled spending time pacing the halls, smiles inappropriately at times, approaching staff appropriately with any needs at this time. * Leta Cornejo, HAND DEVELOPER - 12/03/2019 9:15 AM EDT 0200-9980 Goal Group: Pt brought self to group and asked if he could join, to which pt was permitted. PT dressed in street clothes, but hiding in sahni of his hoodie, paranoid. Pt less restless then previous days, but remains preoccupied with DC and paranoid with his doctor and [place]. PT cited that he was feeling great this date because I want to go home. PT aware that he will be receiving an injection of medication to help with compliance but wants to leave directly afterwards, to which pt was instructed to speak to his doctor about and to be open minded about his Dx. PT set goal for the day of talk to Dr. Chung about the exact DC date.. * Ghulam Garcia RN - 12/03/2019 5:32 AM EDT 0005 Orders and labs work reviewed, patient resting quiet in bed, eyes closed, resp even 0600 Has slept 9 hours to this point, remains asleep at present, mostly uninterrupted * Malena Sahu RN - 12/02/2019 3:30 PM EDT 1600: Temp 97.5 temporal. 1635: Pt is alert and oriented in dining room eating dinner. Calm and cooperative. Maintains good eye contact. Full affect. Pt is dressed in street clothes. Pt denies SI/HI/AH/VH and contracts safetywith this staff. Paranoid delusions observed. Pt rates anxiety and depression as great. Pt stateshe slept well and has a good appetite. Encouraged pt to express needs to staff. 1800: Pt requests and given PRN atarax for increased anxiety at this time. 1800: Pt then asks for PRN tylenol for 4/10 back pain. Pt given at this time. Will continue to monitor. 1909: Pt walking in hallway listening to music on unit speaker. Calm and controlled. 2021: Pt received scheduled medication and took without difficulty. Pt also requests and given PRN trazodone for sleep at this time. 2100: Pt resting in bed with eyes closed. Respirations even and non labored. 2229: Pt remains resting in bed with eyes closed. Respirations even and non labored. * Patti Sauceda, HAND DEVELOPER - 12/02/2019 1:45 PM EDT 13:45 - 14:00 Recreation Therapy - Pt walking in the hallway upon approach and he was receptive to joining group. Pt was educated to a simple game Sequence Dice. Pt easily distracted and he was unable to make strategic moves. He left group after first round of activity and did not return. * Emerita Vidal MSW LISW-Mady - 12/02/2019 1:44 PM EDT Patient reviewed with Dr. Chung. Patient's continues to be fixated on going home today and shows little insight into his physical and mental health issues. Patient sporadically attends therapy groups however often leaves before group is over and shows poor attention span. Behavior per nursing mostly cooperative but needing attention frequently. Follow up appointments scheduled with [facility]. hop farm worker from [facility] continues to work on locating placement for patient upon discharge as at this time he is not appropriate to return to grandparents' home due to inability to provide needed supervision for patient at his current functioning level. environmental services technician continues to follow. * Carlos Chung MD - 12/02/2019 1:14 PM EDT Psychiatry Progress Note Patient Name: Aba Carlton Admit Date: MR #: [id number] : 2000 Perpetual Assessment Aba Carlton is a 19 y.o. male was seen individually, case discussed with nursing staff, medical records reviewed. Patient was somewhat agitated, restless on approach, stated that wanted to call cab, to go to grandmother's home. Patient has rapid, pressured speech, appears to have poor impulse control, had been escalating. We will continue to monitor medication compliance. Will be receiving next dose of Invega sustenna 234 mg IM on 12/06/2019. Diagnosis & Plan/Recommendations Supportive therapy Pharmacological treatment Group therapy, activities therapy PRINCIPAL DIAGNOSIS: Schizoaffective disorder, bipolar type (HCC) Other * Schizoaffective disorder, bipolar type (HCC) Assessment & Plan A: Aba is back in the hospital, again non-compliant with medications. This time, he stole a car and ran off. Brought in by police. He has no insight whatsoever that his behaviors cause repeated hospitalizations. He denies all psychiatric symptoms and is clamoring for discharge.Guardianship paperwork has already been submitted during last hospitalization. Plan: Admit for patient safety and the safety of the community Unpredictable and elopement precautions PRN medications for agitation, anxiety and insomnia, EPS Continue medical treatment of hyperthyroid state per endocrinology Increase dose of next Invega Sustenna injection to 234 mg q 4 weeks (12-05) Discuss possible addition of lithium with Dr. Nieto Milieu therapy Individual and group sessions as tolerated SW liason with family and AOT program Internal medicine consult Lab and radiology as indicated Comorbid issues impacting my care plan include Hyper thyroidism. Following for Interval History: Review of Systems: Constitutional:No fever, no weight loss Eyes:No diplopia ENT:No sinus drainage CV:No chest pain. No ankle swelling Resp:No dyspnea. No wheezing GI:No abdominal pain.No abdominal distention :No dysuria Neuro:No headache Integumentary:No skin rash MuscSkel:No arthralgias Endo:No polyuria Heme/lymphatic:No apparent lymphadenopathy Allergic/Immunologic:No hives Physical Examination: Vital Signs: BP 108/75 (BP Location: Left arm, Patient Position: Sitting) Pulse (!) 104 Temp 98.4 F (36.9 C) (Infrared) Resp 15 Ht 5' 7 Wt 63 kg (138 lb 12.8 oz) SpO2 98% BMI 21.74 kg/m Mental Status Evaluation: General Appearance & Behavior: older than stated age and minimally engaged Grooming & Hygiene: unkempt and street clothes Psychomotor Activity: psychomotor agitation Gait & Station stable gait Speech: loud and pressured Flow of Thought: concrete Thought Associations: Intact Content of Thought: delusions and paranoia Mood: stressed out Affect: irritable, angry and labile Insight: poor Judgment: poor Orientation: alert and oriented to person, place, time, and circumstances Memory: intact recent and remote Attention: adequate Concentration: reduced Language: intact Fund of Knowledge: estimated average intelligence Laboratory and Additional Data Reviewed: Laboratory 12/02/19 1:22 PM Microbiology 12/02/19 1:22 PM Pathology 12/02/19 1:22 PM Medications 12/02/19 1:22 PM Transcriptions 12/02/19 1:22 PM Treatment options and alternatives reviewed with patient. Risks, benefits, side effects of all psychiatric medications discussed with patient and informed consent obtained. All questions were answered. Carlos Chung MD 12/02/2019 1:14 PM * Leopoldo Alvarez RN - 12/02/2019 10:18 AM EDT 0753 Patient approached nurses station and reported that e did not receive entirety of his breakfast. This nurse contacted Dietary and informed of patient request. This nurse introduced self as nursefor shift. Patient denies further needs at this time, thanks this nurse. Special precautions in place, will continue to monitor. 0757 Patient cooperative with vitals assessment in the lounge, see flowsheet. Patient denies pain at this time. Patient provided face mask per protocol. This nurse observed patient attempting to pullapart mask. This nurse provided education on wearing mask appropriately. Patient refuses mask at this time, education provided. This nurse disposed of mask appropriately. This nurse inquired about mask given yesterday, patient reported he threw it away. This nurse provided education on returning to staff appropriately, patient verbalized understanding. Patient denies needs at this time. 0910 Patient and this nurse met in patient room. Patient was cooperative and maintained good eye contact throughout interaction. Patient exhibited blunted affect. Patient was alert and oriented. Patient described mood as tired. Patient reported their depression as a 0 out of 10 and anxiety as a 4out of 10. This nurse inquired what patient is experiencing that causes anxiety or depression, and patient stated just being here. Patient requested Atarax, this nurse to follow up. This nurse provided emotional support. Patient reported that they slept good but still tired and their appetite as I ate it all. Patient reported pain as a 4 out of ten in back, aching. Patient requested Tylenolat this time, this nurse to follow up. Patient denies having audio or visual hallucinations. Patient denies voices. Patient denies suicidal ideations and denies homicidal ideations. Patient contracted for safety. Patient denies further needs at this time. This nurse encouraged patient to come to staff with any needs, questions, or concerns. Patient verbalized agreement. This nurse prompted patient for medication time. This nurse reviewed consents prior to administration, given by patient, education provided. Patient reported no questions or concerns about medication. Patient was compliant with administration of medications as ordered. Patient cooperative with mouth check, no medications located. Patient denied further needs. This nurse encouraged patient to cometo staff with any needs, questions, or concerns. Patient verbalized understanding. 0937 This nurse brought Atarax and Tylenol as ordered as requested to patient. Patient reported that he changed his mind and no longer needs medication.Patient reported that instead he would take anap. Patient reported that he feels fine but tired. This nurse encouraged patient to rest and to v erbalize needs to staff. Patient verbalized agreement and remains in bed resting at this time. 1010 Patient sitting in lounge watching television at this time, controlled and appropriate. 1055 Patient requested a face mask. This nurse provided education on wearing appropriately and turning in to staff at bedtime. Patient denies further needs. 1107 Patient returned face mask with ear piece unattached on one side, ear strap still intact to mask. Mask overall intact. 1133 Patient requested and received Denia Mist. Patient denies further needs at this time and states he is doing fantastic. 1219 Patient in hallway on the phone at this time. Patient requested that this nurse speak to his grandmother on the phone, active RANDEE signed and checked. Patient's grandmother informed this nurse that she knows patient is not being discharged today. 1315 Patient requested and received several cups of Denia mist. Patient requested and received snack. This nurse noted patient pacing in hallways. This nurse spoke to patient, who reported that he is woried about discharge, I want to get out of here. This nurse encouraged patient to utilize coping skills and inquired if patient would like Atarax as ordered. Patient refuses Atarax at this time.Patient reported that he is not anxious. This nurse to continue to monitor. Patient pacing, calm and controlled. 1356 Patient attending group with therapist Patti and peers at this time. 1358 Patient left group at this time. 1440 Patient requested and received snack. * Leta Cornejo CTRS - 12/02/2019 9:15 AM EDT Pt resting in, did not wake when invited to attend group. * Yaneth Gaming RN - 12/02/2019 3:42 AM EDT 0300 Assumed care of patient from CRISTAL Barahona. Patient resting in bed. Respirations are even and unlabored. 0400 Patient continues to rest in bed and respirations are even and unlabored. 0600 Patient appears to have slept for approximately 8.75 hours. Patient continues to rest in bed and respirations remain even and unlabored. * Brooklyn Mccrary RN - 12/02/2019 2:54 AM EDT Patient is resting quietly in bed, eyes closed, respirations even and non labored. * Brooklyn Mccrary RN - 12/01/2019 9:28 PM EDT 1900: Took over care from Torie BEE Patient is anxious, wringing hands, asking for snack. He was given a yogurt and drink. He says he is still feeling hungry all the time. Says he had a normal BM today. 1999: Patient in lounge eating snack, shoving crackers and cheese in his mouth as fast as he can. Talked with him about eating slower, making sure he is chewing to avoid choking. He was given extra snacks with his 8p snack. 2049: Patient asked for HS medications, and asked for tylenol for 5/10 back pain, and hydroxyzine for anxiety. Vitals within normal limits. He says he usually sleeps well at night. We talked about coping, importance of relaxation and positive thinking. He denies having negative thoughts. He denies A/V hallucinations. 2129: Patient is laying in bed esting quietly, eyes closed, respirations even and non labored. * Emerita Santamaria CNP - 12/01/2019 5:24 PM EDT [facility] Medicine Inpatient Consult Follow-up 12/01/2019 Emerita Santamaria CNP Patient: Aba Carlton Date of : 2000 (19 y.o.) PCP: Adrienne Arcos CNP Referring Provider: Carlos Chung MD Consult: Lanette Cordon MD: Hospitalist assistance with medical management Of note, this patient was admitted to [facility] following the declaration of aNational State of Emergency due to the COVID-19 pandemic, as issued by the street railway line installer on 06/27/2019. ASSESSMENT/PLAN: Principal Problem: Schizoaffective disorder, bipolar type (HCC) Active Problems: Psychoactive substance abuse (HCC) ASSESSMENT/PLAN: Principal Problem: Schizoaffective disorder, bipolar type (HCC) Active Problems: Hyperthyroidism Psychoactive substance abuse (HCC) Hyperthyroidism Assessment & Plan A: Hyperthyroidism, probable Graves Disease, diagnosed earlier this month. Under the care of Dr. Nieto. Patient is again in denial that he has a thyroid problem and has refused medications as an outpatient. TSH <0.01 and free T4 6.9 at admission. Pulse currently in the 130's. Agitation, hungry and thirsty. P: Resume medications. Re-consult Dr. Nieto for endocrine management. Provide between meal snacks and boost for pt due to high metabolism and feeling hungry Monitor HR carefully, encourage pt to take medications. 11/30 Remains bizarre, demanding, manic and responding to internal stimuli Guardianship papers have been started with parents. Grandparents are unable to supervise or control patient. HR is controlled with propranolol Endocrinology is managing hyperthyroidism Kidney function will need to be monitored if lithium is started. SUBJECTIVE: History Since Last Visit: remains manic and bizarre Current Scheduled Meds: divalproex 500 mg Oral BID methIMAzole 20 mg Oral BID nicotine 1 patch Transdermal Daily paliperidone 6 mg Oral Daily propranoloL 10 mg Oral Q12H IMER Review of Systems: All other systems reviewed and negative other than HPI OBJECTIVE: Physical Examination: Vital Signs: BP 127/84 (BP Location: Right arm, Patient Position: Standing) Pulse 95 Temp 97.3 F (36.3 C) Resp 16 Ht 5' 7 Wt 63 kg (138 lb 12.8 oz) SpO2 95% BMI 21.74 kg/m General Appearance: Alert, well appearing, and in no acute distress. HEENT: Head - Normocephalic, atraumatic. Eyes - AKOSUA bilaterally and EOMI. Ears - normal external appearance, hearing intact. Nose - normal, no erythema. Throat - mucous membranes moist, pharynx without lesions. Neck: Supple, trachea midline. Cardiovascular: S1, S2 normal. No murmurs, rubs, clicks or gallops appreciated. No pedal edema. Respiratory: Lungs clear to auscultation, no wheezes, rales or rhonchi heard. Abdomen: Soft, non-tender, normal bowel sounds, non-distended, no masses or organomegaly appreciated. Neurological: Grossly normal motor and sensory exam. No focal deficits. Musculoskeletal: No joint tenderness, deformity or swelling. Skin: Normal coloration and turgor. No rashes. Psych: Alert, oriented x 3. Normal delusional, bizarre, poor insight, constant demands with no ability to wait for results,.manic and affect. Laboratory and Additional Data Reviewed: Results/Medications Reviewed 12/01/19 5:24 PM: CULTURES: Reviewed 12/01/19 5:24 PM Radiology/Imaging: Reviewed 12/01/19 5:24 PM * Emerita Vidal MSW LISW-S - 12/01/2019 4:19 PM EDT Patient continues to show poor insight into illness and per staff report still responding to internal stimuli. Patient is not able to return to grandparents home at this time as they have been unableto provide needed guidance to patient due to mental and physical issues. Gmat Tutor from [facility] still working on guardianship for patient and finding assisted living for patient. environmental services technician continues to follow. * Torie Thomson, RN - 12/01/2019 4:07 PM EDT 1600: Pt ambulating unit with even and steady gait. Pt in hospital attire, preoccupied, delayed, dull, controlled, and staring forward. Pt requests music, coffee, and yogurt. Pt directable and agreeable to waiting for dinner. Pt reports day going okay. Pt asks about when get to be discharged. Talked about making sure pt safe and doctor agreeing pt okay to go home. Pt nods and ambulates away from this mortgage loan underwriter. Will continue to monitor. 1900: Pt has spent time ambulating in hallway and talking with peers. Pt makes frequent requests but is directable. Pt had no scheduled or prn medications. Pt has been controlled and preoccupied. Report given to [place] BEE. * Re Arriaga, TUAN - 12/01/2019 1:15 PM EDT 0492 - [id number] Recreation Therapy: Pt participated in playing the game of LCR (Left, Right, Center). Pt struggled to stay focused to task though receptive to simple step direction. His movement while rolling the dice was bizarre. Pt tolerant in playing 2 games, however, when suggested a 3rd game stands up stating no, no more and leaves. * Carlos Chung MD - 12/01/2019 11:59 AM EDT Psychiatry Progress Note Patient Name: Aba Carlton Admit Date: MR #: [id number] : 2000 Perpetual Assessment Aba Carlton is a 19 y.o. male was seen individually, case discussed with nursing staff, medical records were reviewed. Patient was observed having laughing outbursts while looking at the mirror in theroom and was engaged in communication with imaginary people. He has been pacing in the hallway, talking to self. Patient was increasingly preoccupied with his thoughts about writing poetry, detailsof which he did not elaborate. He remained increasingly suspicious, guarded. His thought process remains disorganized Diagnosis & Plan/Recommendations Supportive therapy Group therapy, activities therapy Pharmacological treatment PRINCIPAL DIAGNOSIS: Schizoaffective disorder, bipolar type (HCC) Other * Schizoaffective disorder, bipolar type (HCC) Assessment & Plan A: Aba is back in the hospital, again non-compliant with medications. This time, he stole a car and ran off. Brought in by police. He has no insight whatsoever that his behaviors cause repeated hospitalizations. He denies all psychiatric symptoms and is clamoring for discharge.Guardianship paperwork has already been submitted during last hospitalization. Plan: Admit for patient safety and the safety of the community Unpredictable and elopement precautions PRN medications for agitation, anxiety and insomnia, EPS Continue medical treatment of hyperthyroid state per endocrinology Increase dose of next Invega Sustenna injection to 234 mg q 4 weeks (8-22) Discuss possible addition of lithium with Dr. Nieto Milieu therapy Individual and group sessions as tolerated SW liason with family and AOT program Internal medicine consult Lab and radiology as indicated Comorbid issues impacting my care plan include hyperthyroidism. Following for Interval History: Review of Systems: Constitutional:No fever, no weight loss Physical Examination: Vital Signs: BP 127/84 (BP Location: Right arm, Patient Position: Standing) Pulse 95 Temp 97.8 F (36.6 C) (Oral) Resp 16 Ht 5' 7 Wt 63 kg (138 lb 12.8 oz) SpO2 95% BMI 21.74 kg/m Mental Status Evaluation: General Appearance & Behavior: minimally engaged Grooming & Hygiene: street clothes Psychomotor Activity: psychomotor agitation Gait & Station stable gait Speech: pressured Flow of Thought: disorganized Thought Associations: Loose Content of Thought: auditory hallucinations and paranoia Mood: stressed out Affect: anxious, worried, irritable, restricted and blunted Insight: poor Judgment: poor Orientation: alert and oriented to person, place, time, and circumstances Memory: intact recent and remote Attention: adequate Concentration: intact Language: intact Fund of Knowledge: estimated average intelligence Laboratory and Additional Data Reviewed: Laboratory 12/01/19 12:54 PM Microbiology 12/01/19 12:54 PM Pathology 12/01/19 12:54 PM Medications 12/01/19 12:54 PM Transcriptions 12/01/19 12:54 PM Treatment options and alternatives reviewed with patient. Risks, benefits, side effects of all psychiatric medications discussed with patient and informed consent obtained. All questions were answered. Carlos Chung MD 12/01/2019 11:59 AM * Leta Cornejo CTRS - 12/01/2019 9:10 AM EDT Pt resting soundly in bed, with head at foot of bed, when approached for group. PT did not wake to being addressed, thus did not attend group. * Elisha Veloz RN - 12/01/2019 8:17 AM EDT 0745 Patient sitting in dining area eating breakfast. Vital signs obtained at this time 0815 Patient is alert and oriented. Presents laying in bed covered with blanket. Denies anxiety anddepression. Denies SI/AH/VH. Denies Pain. Flat. Tactile hallucinations remain. Patient confirms something crawling in his room on the floor at times. Eye contact is fair. Speech delayed but clear.Attends groups. Reports he is sleeping good and eating good. Encouraged to perform all adl's. Patient is mediation compliant 1100 Patient attempted to participated in nursing led muscle relaxation group but only stayed for afew minutes. Patient stated does this still count as me going to group? * Kathrin Jacinto CRISTAL - 11/30/2019 11:51 PM EDT 2330 In room in bed with eyes closed at this time. 0000 Special Precautions continue--see precaution monitoring for observations and documentation. Patient currently resting in bed at this time. 0015 Patient in room in bed resting on right side with head at foot of bed and room light on at this time. 0200 Continues resting in room in bed on right side with head at foot of bed and room light remainson at this time. 0400 Continues resting in room in bed on leftt side with head at foot of bed and room light remainson at this time. 0600 Patient appears to have rested approximately 8 hours to present without complaints. Patient remains in bed at this time. * Fabienne Posada RN - 11/30/2019 5:14 PM EDT 1715 Pt up and about the unit, pacing throughout the hallways, Pt very preoccupied, disheveled in hospital attire. Pt continuously requesting snacks. 2140 Pt denies any hallucinations, but at times appears to be responding to internal stimuli, smiling inappropriately or talking to himself. Affect is flat, Pt is wide eyed and staring, Pt has somewhat delayed responses and he is very preoccupied in his thought process. Continues to pace the floors, preoccupied, states is hoping to be discharged tomorrow, Pt's BP obtained and Pt given hs meds, is compliant. Also requests Trazodone for sleep and Atarax 50 mg PO for increased anxiety. 2255 Pt resting quietly in bed at this time. * Re Arriaga, TUAN - 11/30/2019 1:10 PM EDT 1310 - 1340 Recreation Therapy: Pt participated in a discussion to increase awareness to community resources for leisure participation. His responses centered around playing video games. He exhibits paranoia and on several questions states the question was too personal (ie...Where do you like to shop?) His demonstrates a dull, detached affect. He becomes teary-eye at one moment though did not share thoughts. * Carlos Chung MD - 11/30/2019 12:19 PM EDT Psychiatry Progress Note Patient Name: Aba Carlton Admit Date: MR #: [id number] : 2000 Perpetual Assessment Aba Carlton is a 19 y.o. male was seen individually, case discussed with nursing staff, medical records were reviewed. Patient was observed pacing the floor, mumbling to self, laughing at times, appears to be responding to internal stimuli. Patient remained preoccupied with his thoughts about calling the grandmother, so that she can pick him up to go home. Patient has poor insight into his behavioral problems. His thinking remains disorganized. Diagnosis & Plan/Recommendations Supportive therapy Pharmacological treatment Group therapy, activities therapy PRINCIPAL DIAGNOSIS: Schizoaffective disorder, bipolar type (HCC) Other * Schizoaffective disorder, bipolar type (HCC) Assessment & Plan A: Aba is back in the hospital, again non-compliant with medications. This time, he stole a car and ran off. Brought in by police. He has no insight whatsoever that his behaviors cause repeated hospitalizations. He denies all psychiatric symptoms and is clamoring for discharge.Guardianship paperwork has already been submitted during last hospitalization. Plan: Admit for patient safety and the safety of the community Unpredictable and elopement precautions PRN medications for agitation, anxiety and insomnia, EPS Continue medical treatment of hyperthyroid state per endocrinology Increase dose of next Invega Sustenna injection to 234 mg q 4 weeks (8-22) Discuss possible addition of lithium with Dr. Nieto Milieu therapy Individual and group sessions as tolerated ELENA liason with family and AOT program Internal medicine consult Lab and radiology as indicated Comorbid issues impacting my care plan include Hyperthyroidism. Following for Interval History: Review of Systems: Constitutional:No fever, no weight loss Eyes:No diplopia ENT:No sinus drainage CV:No chest pain. No ankle swelling Resp:No dyspnea. No wheezing GI:No abdominal pain.No abdominal distention :No dysuria Neuro:No headache Integumentary:No skin rash MuscSkel:No arthralgias Endo:No polyuria Heme/lymphatic:No apparent lymphadenopathy Allergic/Immunologic:No hives Physical Examination: Vital Signs: BP 136/76 Pulse (!) 109 Temp 97.6 F (36.4 C) (Oral) Resp 14 Ht 5' 7 Wt 63 kg (138 lb 12.8 oz) SpO2 95% BMI 21.74 kg/m Mental Status Evaluation: General Appearance & Behavior: older than stated age and minimally engaged Grooming & Hygiene: street clothes Psychomotor Activity: psychomotor agitation Gait & Station stable gait Speech: pressured Flow of Thought: disorganized Thought Associations: Loose Content of Thought: delusions and paranoia Mood: anxious Affect: anxious, worried, sad and depressed Insight: poor Judgment: poor Orientation: alert and oriented to person, place, time, and circumstances Memory: intact recent and remote Attention: adequate Concentration: intact Language: intact Fund of Knowledge: estimated average intelligence Laboratory and Additional Data Reviewed: Laboratory 11/30/19 12:28 PM Microbiology 11/30/19 12:28 PM Pathology 11/30/19 12:28 PM Medications 11/30/19 12:28 PM Transcriptions 11/30/19 12:28 PM Treatment options and alternatives reviewed with patient. Risks, benefits, side effects of all psychiatric medications discussed with patient and informed consent obtained. All questions were answered. Carlos Chung MD 11/30/2019 12:19 PM * Celia Morfin - 11/30/2019 12:04 PM EDT Spiritual Health Care Note Patient attended Spirituality group. Showroom Executive Director role introduced and how to contact if follow up is requested. Chaplain Celia Morfin MD[facility] Pastoral Care Department [phone] office [phone] pager [phone] on-call pager (after 5pm and weekends) 11/30/19 1000 Clinical Encounter Type Visit Type Non Crisis Non Crisis Visit Group Visited With Patient Visited By Other (comment) (Showroom Executive Director) Visit Length (minutes) 60 * Elisha Veloz RN - 11/30/2019 10:09 AM EDT 0745 Patient laying in bed. Patient awoke and reminded for breakfast. 0815 Vital signs obtained at this time. 0930 Patient is awake and alert, sitting on side of bed. Calm and cooperative. Denies anxiety and depression. Denies SI/ AH/VH. Denies Pain. Flat. Stares and Isolated from interacting with peers. Patient observed pacing in halls and staring off blankly. Smiles and laughs to himself and appears as if he is responding to internal stimuli although he denies. Patient reports he is in the hospital d/t taking grandmas car but denies any mental health issues and stated im healthy Eye contact is fair. Appetite is back to normal. Sleep is good. Speech is clear. Encouraged to shower today and attend groups Patient is medication compliant. Mouth check performed. Request 2 new blankets stating the re are zips on the floor and on his pillows. Patient stated these are like bugs, crawling patient sat up and began wiping his pillow. 1015 Patient participating in spiritual group at this time. 1145 Patient requesting this RN speak with Grandmother on the phone, patient handed over the phone.GM stated Aba calls and ask when he is coming home. GM stated at this time she is under the understanding that Aba is going to go to [place] she stated he can not return to their home d/t his GF still being very upset with him regarding stealing the car. GM reports she is patient step grandmother and her and her have not seen patient in or his siblings in 10 years. [facility] and his mother and stepfather who she stated are both alcoholics. She stated patient and his siblings are all living with her since last January. stated she would bring some clothes and personal items for the patient. * Gisel Vinson RN - 11/30/2019 3:31 AM EDT 2330 Up and about on unit. Clean blanket placed in dryer per patient's request, to help patient sleep. 0030 Patient currently resting in bed at this time. Special Precautions continue--see precaution monitoring for observations and documentation. 0200 Patient in bed, respirations easy. 0400 Patient resting in bed with eyes closed and even respirations. 0530 Slept approximately 5 hours, from 0030 to present without concerns. Patient remains in bed resting. * Fabienne Posada RN - 11/29/2019 5:44 PM EDT 1745 Pt up and about the unit wearing hospital attire, Pt pacing, at a slower pace, throughout the hallways, wide eyed and staring with a flat affect. Eye contact is fair, Pt currently denies suicidal thoughts, or any hallucinations, however, he is smiling inappropriately at times as if responding to internal stimuli. Pt does not interact much with peers, keeps to himself. Ate dinner in the dining area. Is very preoccupied with delayed or no responses when speaking with him. 1999 Pt continues to ask for many snacks throughout the evening, also asking to have an x-ray done, Pt states, Remember I told you I swallowed a Bee bug..... it's eating me inside. Pt continues fixed delusion, this nurse redirecting Pt, he is redirectable at this time and is able to focus on another topic. 2199 Pt given hs meds, Pt spit out the 2 Depakote tablets into his cup, refuses to take them. This nurseeducating the Pt on the importance of taking the med, he continues to refuse. Pt continues pacing the floor, preoccupied. 2314 Pt continues pacing throughout the hallways, picking at things that are not there at times. Pt continues to refuse the Depakote medication, becoming irritable and loud with this nurse, I told you Miss! I'm not going to take that!. * Carlos Chung MD - 11/29/2019 4:39 PM EDT Psychiatry Progress Note Patient Name: Aba Carlton Admit Date: MR #: [id number] : 2000 Perpetual Assessment Aba Carlton is a 19 y.o. male was seen individually, case discussed with nursing staff, medical records were reviewed. Patient was observed somewhat hyperactive hypertalkative with some pressured speech during evaluation. Patient has poor insight into his behavioral problems of taking grandparents car without permission and running away. Diagnosis & Plan/Recommendations Supportive therapy Pharmacological treatment Group therapy, activities therapy PRINCIPAL DIAGNOSIS: Schizoaffective disorder, bipolar type (HCC) Other * Schizoaffective disorder, bipolar type (HCC) Assessment & Plan A: Aba is back in the hospital, again non-compliant with medications. This time, he stole a car and ran off. Brought in by police. He has no insight whatsoever that his behaviors cause repeated hospitalizations. He denies all psychiatric symptoms and is clamoring for discharge.Guardianship paperwork has already been submitted during last hospitalization. Plan: Admit for patient safety and the safety of the community Unpredictable and elopement precautions PRN medications for agitation, anxiety and insomnia, EPS Continue medical treatment of hyperthyroid state per endocrinology Increase dose of next Invega Sustenna injection to 234 mg q 4 weeks (8-22) Discuss possible addition of lithium with Dr. Nieto Milieu therapy Individual and group sessions as tolerated ELENA higgins with family and AOT program Internal medicine consult Lab and radiology as indicated Comorbid issues impacting my care plan include hyperthyroidism. Following for Interval History: Review of Systems: Constitutional:No fever, no weight loss Eyes:No diplopia ENT:No sinus drainage CV:No chest pain. No ankle swelling Resp:No dyspnea. No wheezing GI:No abdominal pain.No abdominal distention :No dysuria Neuro:No headache Integumentary:No skin rash MuscSkel:No arthralgias Endo:No polyuria Heme/lymphatic:No apparent lymphadenopathy Allergic/Immunologic:No hives Physical Examination: Vital Signs: BP 113/77 Pulse (!) 128 Temp 97.5 F (36.4 C) (Infrared) Resp 14 Ht 5' 7 Wt 63 kg (138 lb12.8 oz) SpO2 97% BMI 21.74 kg/m Mental Status Evaluation: General Appearance & Behavior: older than stated age, cooperative and minimally engaged Grooming & Hygiene: street clothes Psychomotor Activity: psychomotor agitation Gait & Station stable gait Speech: hyperverbal, loud and pressured Flow of Thought: concrete Thought Associations: Intact Content of Thought: delusions and paranoia Mood: anxious Affect: anxious, worried, fearful, irritable and labile Insight: poor Judgment: poor Orientation: alert and oriented to person, place, time, and circumstances Memory: intact recent and remote Attention: adequate Concentration: reduced Language: intact Fund of Knowledge: estimated average intelligence Laboratory and Additional Data Reviewed: Laboratory 11/29/19 4:44 PM Microbiology 11/29/19 4:44 PM Pathology 11/29/19 4:44 PM Medications 11/29/19 4:44 PM Transcriptions 11/29/19 4:44 PM Treatment options and alternatives reviewed with patient. Risks, benefits, side effects of all psychiatric medications discussed with patient and informed consent obtained. All questions were answered. Carlos Chung MD 11/29/2019 4:39 PM * Carlos Chung MD - 11/29/2019 1:14 PM EDT Psychiatry Progress Note Patient Name: Aba Carlton Admit Date: MR #: [id number] : 2000 Perpetual Assessment Aba Carlton is a 19 y.o. male was just seen individually, case discussed with nursing staff, medicalrecords were reviewed. Patient is pacing the floor, staring, mumbling to self, appears to be responding to internal stimuli. Psychomotor activities appeared in somewhat agitated range. Diagnosis & Plan/Recommendations Supportive therapy Psychopharmacological treatment Group therapy, activities PRINCIPAL DIAGNOSIS: Schizoaffective disorder, bipolar type (HCC) Other * Schizoaffective disorder, bipolar type (HCC) Assessment & Plan A: Aba is back in the hospital, again non-compliant with medications. This time, he stole a car and ran off. Brought in by police. He has no insight whatsoever that his behaviors cause repeated hospitalizations. He denies all psychiatric symptoms and is clamoring for discharge.Guardianship paperwork has already been submitted during last hospitalization. Plan: Admit for patient safety and the safety of the community Unpredictable and elopement precautions PRN medications for agitation, anxiety and insomnia, EPS Continue medical treatment of hyperthyroid state per endocrinology Increase dose of next Invega Sustenna injection to 234 mg q 4 weeks (8-22) Discuss possible addition of lithium with Dr. Nieto Milieu therapy Individual and group sessions as tolerated SW liaarthur with family and AOT program Internal medicine consult Lab and radiology as indicated Comorbid issues impacting my care plan include Hypethyroidism. Following for Interval History: Review of Systems: Constitutional:No fever, no weight loss Eyes:No diplopia ENT:No sinus drainage CV:No chest pain. No ankle swelling Resp:No dyspnea. No wheezing GI:No abdominal pain.No abdominal distention :No dysuria Neuro:No headache Integumentary:No skin rash MuscSkel:No arthralgias Endo:No polyuria Heme/lymphatic:No apparent lymphadenopathy Physical Examination: Vital Signs: BP 113/77 Pulse (!) 128 Temp 97.6 F (36.4 C) (Oral) Resp 14 Ht 5' 7 Wt 63 kg (138 lb 12.8 oz) SpO2 97% BMI 21.74 kg/m Mental Status Evaluation: General Appearance & Behavior: older than stated age, cooperative and minimally engaged Grooming & Hygiene: street clothes Psychomotor Activity: psychomotor agitation Gait & Station stable gait Speech: soft spoken and pressured Flow of Thought: disorganized Thought Associations: Loose Content of Thought: delusions and paranoia Mood: stressed out Affect: anxious, worried, fearful, hopeless and restricted Insight: poor Judgment: poor Orientation: alert and oriented to person, place, time, and circumstances Memory: intact recent and remote Attention: adequate Concentration: intact Language: intact Fund of Knowledge: estimated average intelligence Laboratory and Additional Data Reviewed: Laboratory 11/29/19 1:17 PM Microbiology 11/29/19 1:17 PM Pathology 11/29/19 1:17 PM Medications 11/29/19 1:17 PM Transcriptions 11/29/19 1:17 PM Treatment options and alternatives reviewed with patient. Risks, benefits, side effects of all psychiatric medications discussed with patient and informed consent obtained. All questions were answered. Carlos Cuhng MD 11/28/2019 1:14 PM * Re Arriaga, HAND DEVELOPER - 11/29/2019 10:30 AM EDT 1030 - 1100 Recreation Therapy: Pt selected a picture in which to utilized watercolor to paint. He was quiet, cooperative and controlled as he painted, however, continues to exhibit paranoid ideations. Pt refusing to share his name with peer once finding out peer had served in the in the past. * Elisha Veloz RN - 11/29/2019 8:00 AM EDT 0800 Patient woke for vital signs and made aware of breakfast. Pt continued to sleep. 0900 Woke patient for morning medications. Requesting his breakfast at this time. Reheated breakfast. Patient sitting in dining area a this time. 0915 Patient vital signs obtained at this time. Patient presents calm and cooperative. Flat. Deniesanxiety and depression. Denies SI. Denies AH or VH. Denies pain. Eye contact is fair. Patient stares off at times. Speech is clear. Reports he is sleeping good and appetite is good. Stated he isn't as hungry all day. Patient HR continues to be elevated. Encouraged to attend groups and perform adl's. Verbalizes understanding. 1000 Patient sitting in dining area writing in his journal. 1030 Attending group 1130 Patient in dining area eating lunch. 1300 Patient at nursing station listening to music * Yaneth Gaming RN - 11/29/2019 12:22 AM EDT 0000 Patient resting in bed. Respirations are even and unlabored. 0200 Patient continues to rest in bed and respirations remain even and unlabored. 0400 Patient continues to rest in bed and respirations remain even and unlabored. 0600 Patient appears to have slept for approximately 7 hours. Patient continues to rest in bed and respirations remain even and unlabored. * Ashley Hines LPN - 11/28/2019 4:00 PM EDT Alert and Orientation: A & O x 3 Behavior: Preoccupied ,anxious ,restless Thought process, mood, affect, speech: Preoccupied , flat delayed SI/HI/AH/VH: No has delayed responses and smiles inappropriately - stares off Depression/Anxiety scale: I m not depressed or anxious Sleep, nutrition, ADL's: 6.5 hrs , good appetite , showers Goal for the day: To go home Met/partially met/not met: Not yet Medications: 15:30 standing around nurses station 16:30 eating dinner out in dining area 17:00 one on one interaction takes place in hallway . Patient (pt) is casually dressed. Pt states sleep was why ,alright Pt states appetite was good. Pt denies SI/HI/voices. Pt rates anxiety a I m not anxious/10 and depression a I m not depressed /10. Pt spends time walking in hallway. Pt completes ADL's-showers and brushes teeth. Pt makes fair eye contact when speaking, which is delayed 19:00 Pt has no visitors or phone calls 2047 Medication compliant 2199 talking with peer 2250 In room * Nick Azevedo, RD - 11/28/2019 1:36 PM EDT Nutrition Care Initial Assessment Reason for visit: Dietitian Screen Nutrition Diagnosis: no current nutritional problem Nutrition Intervention: meal rounds Meal and Snacks Nutrition Prescription: Diet: regular Nutrition Goals: PO intake > 75% most meals Start Date:11/28/2019 Expected End Date:12/08/2019 Nutrition Education: No needs at this time Assessment: Pertinent clinical information: recently managed hyperthyroidism Past Medical History: Diagnosis Date ADHD Hypertension Hyperthyroidism 10/20/2019 Hyperthyroidism Hyperthyroidism Schizo affective schizophrenia (HCC) Schizoaffective disorder (HCC) 10/20/2019 Height: 5' 7 Current weight: 63 kg (138 lb 12.8 oz) BMI Body mass index is 21.74 kg/m . Weight hx: Wt Readings from Last 5 Encounters: 11/22/19 63 kg (138 lb 12.8 oz) 11/20/19 61.1 kg (134 lb 9.6 oz) 11/12/19 60.8 kg (134 lb) 11/10/19 62.1 kg (137 lb) 11/06/19 60.8 kg (134 lb) Current diet order: regular Recent intake: 75%. Current intake Likely meets estimated needs. Difficulty Chewing/Swallowing: No Skin Integrity: Intact GI Function: WNL Physical Appearance: no signs or symptoms of malnutrition Nutrition Focus Physical Exam Type: Visual Labs: No results for input(s): NA, K, BICARB, CL, GLUCOSE, BUN, CREATININE, MG, PHOS in the last 72hours. Scheduled Meds: divalproex 500 mg Oral BID methIMAzole 20 mg Oral BID nicotine 1 patch Transdermal Daily paliperidone 6 mg Oral Daily propranoloL 10 mg Oral Q12H IMER Continuous Infusions: Estimated Energy Needs Total Energy Estimated Needs: 2500kcal Method for Estimating Needs: 40kcal/kg Total Protein Estimated Needs: 75gm Method for Estimating Needs: 1.2gm/kg [place] Azevedo MS, RDN, LD Dietitian Office * Leta Cornejo, TUAN - 11/28/2019 1:00 PM EDT [id number] Recreation Therapy: Pt brought self to group, despite not being assigned. Planner Chief set limit with pt that he needed to remain in group and could not be coming and going as previous days. PT voiced that he could and would remain. PT and peers were educated to leisure skill of Nadja to workon focus/concentration, direction following, patience and positive coping/leisure skills. Pt attention and focus was WFL for pt at this time. PT very restless, constantly moving. PT responding to internal stimuli throughout group, AEB smiling and laughing to self. PT voiced that he did not like to follow the rules of the game because it feels like you are trying to control me. PT was provided with support that he was not being controlled and that he was indeed in control of his own actions and choices. * Emerita Vidal MSW LISW-S - 11/28/2019 10:48 AM EDT Spoke with patient at nurses' station. He was again stating to this worker that he wanted me to talk with his grandmother for her to tell this worker patient was okay to take a taxi home when he discharges. Informed him to this worker's knowledge he is not discharging today and patient began to getworked up so this worker stopped the conversation at this time. Had received a voicemail message from Quynh from [employer] who is working on patient's guardianshipprocess as well as looking into assisted living facility for patient at discharge as there is concern his grandparents cannot provide the appropriate amount of supervision at this time. Did return her call and spoke with her further. Did update her on patient's progress to this point. The primary issue remains patient's lack of insight and understanding about both his mental health and his medical issues. Updated her that per notes and reports from other staff members patient still making bizarre statement such as God is mad at me and that's why I had to do all the bad things I did and responding to unseen others. environmental services technician continues to follow. * Leta Cornejo CTRS - 11/28/2019 9:00 AM EDT PT resting soundly in bed when approached for group. PT was not disturbed do to need for sleep. * Elisha Veloz RN - 11/28/2019 8:00 AM EDT 0800 Patient sitting in dining area eating breakfast. 0830 Patient standing at nurses station. Dressed in street clothes. Confused. Patient is not understanding why he is here and repeats I want to go home Denies Anxiety and depression. Denies SI. Denies AH and VH. Denies pain. Patient stares off in conversation. Laughing to self. Eyes are darting around room. Speech is delayed but clear. Thought blocking. Reports he is sleeping good and Eating good Reports his appetite is better Patient is compliant with all medication. Mouth check performed. Encourage to communicate needs to staff and be mindful of other patients on the unit. Verbalize understanding. 1000 Patient at nurses station smiling requesting to listen to music. Patient also requested to call grandefrain provided patient the phone and he attempted to call but no answer. 1100 Patient sitting in the dining area drawing in his notebook. Walked past the patient and he quickly covered his paper with his hand and stated don't look. Will continue to monitor. 1130 Patient eating lunch in dining area 1200 Dr. Chung in with patient at this time. 1315 patient in group at this time * Ghulam Garcia RN - 11/28/2019 1:03 AM EDT 0040 Provided patient with several food items, patient allows this RN to collect and wash clothes, with assurance that he will get them back early in the morning, disheveled, quiet tone of voice, restless, cooperative * Laila Lima LPN - 11/28/2019 12:48 AM EDT 0000: Patient resting quietly supine in bed, prefers to have light on, is still wearing his glasses, no signs of any distress, respirations even and non labored, 15 minute checks maintained for his safety. 0035: Patient up and at the nurse's station, asked for a pudding, provided for him, also brought his laundry up to be washed, returned to his room. 0315: Patient resting quietly, only has light on in his bathroom, still wearing glasses, eyes closed, respirations non labored, 15 minute checks maintained for his safety. 0600: Patient remains resting quietly, eyes closed, appeared to have slept for 6.5 hours. * Carlos Chung MD - 11/27/2019 7:47 PM EDT Psychiatry Progress Note Patient Name: Aba Carlton Admit Date: MR #: [id number] : 2000 Perpetual Assessment Aba Carlton is a 19 y.o. male was seen individually, case discussed with nursing staff, medical records were reviewed. Patient was observed hyperactive, has pressured speech, rambling in very logical manner, has been difficult to redirect. He is pacing the hallway, mumbling to self, appears to be responding to internal stimuli. We will continue to monitor behavior closely Diagnosis & Plan/Recommendations Supportive therapy Psychopharmacological treatment Group therapy, activities therapy PRINCIPAL DIAGNOSIS: Schizoaffective disorder, bipolar type (HCC) Other * Schizoaffective disorder, bipolar type (HCC) Assessment & Plan A: Aba is back in the hospital, again non-compliant with medications. This time, he stole a car and ran off. Brought in by police. He has no insight whatsoever that his behaviors cause repeated hospitalizations. He denies all psychiatric symptoms and is clamoring for discharge.Guardianship paperwork has already been submitted during last hospitalization. Plan: Admit for patient safety and the safety of the community Unpredictable and elopement precautions PRN medications for agitation, anxiety and insomnia, EPS Continue medical treatment of hyperthyroid state per endocrinology Increase dose of next Invega Sustenna injection to 234 mg q 4 weeks (8-22) Discuss possible addition of lithium with Dr. Nieto Milieu therapy Individual and group sessions as tolerated SW liason with family and AOT program Internal medicine consult Lab and radiology as indicated Comorbid issues impacting my care plan include Hyperthyroidism. Following for Interval History: Review of Systems: Constitutional:No fever, no weight loss Eyes:No diplopia ENT:No sinus drainage CV:No chest pain. No ankle swelling Resp:No dyspnea. No wheezing GI:No abdominal pain.No abdominal distention :No dysuria Neuro:No headache Integumentary:No skin rash MuscSkel:No arthralgias Endo:No polyuria Heme/lymphatic:No apparent lymphadenopathy Allergic/Immunologic:No hives Physical Examination: Vital Signs: BP 136/84 Pulse (!) 117 Temp 97.9 F (36.6 C) Resp 16 Ht 5' 7 Wt 63 kg (138 lb 12.8 oz) SpO2 96% BMI 21.74 kg/m Mental Status Evaluation: General Appearance & Behavior: age appropiate and minimally engaged Grooming & Hygiene: street clothes Psychomotor Activity: psychomotor agitation Gait & Station stable gait Speech: pressured, non-sensical and rambling Flow of Thought: disorganized Thought Associations: Intact Content of Thought: delusions and paranoia Mood: anxious Affect: anxious, worried, irritable and labile Insight: poor Judgment: poor Orientation: alert and oriented to person, place, time, and circumstances Memory: intact recent and remote Attention: adequate Concentration: intact Language: intact Fund of Knowledge: estimated average intelligence Laboratory and Additional Data Reviewed: Laboratory 11/27/19 7:53 PM Microbiology 11/27/19 7:53 PM Pathology 11/27/19 7:53 PM Medications 11/27/19 7:53 PM Transcriptions 11/27/19 7:53 PM Treatment options and alternatives reviewed with patient. Risks, benefits, side effects of all psychiatric medications discussed with patient and informed consent obtained. All questions were answered. Carlos Chung MD 11/27/2019 7:47 PM * Torie Thomson RN - 11/27/2019 4:37 PM EDT 1600: Pt ambulating back and forth in hallway with even and steady gait. Pt in hospital attire, preoccupied, flat, unpredictable, guarded, delayed, confused, controlled, and makes some eye contact. Pt denies pain or needs at this time. Pt staring forward while ambulating and seems to be responding to internal stimuli. Pt denies A/V hallucinations. 0: Pt sitting in lounge with dinner tray. Pt reports not wanting to eat sandwich due to it looking pink. Pt states I've lost my appetite. I don't want any more. Pt denies wanting something different to eat. Pt responds to questions after a few second delay. Pt continues to deny needs. 1800: Pt ambulating unit with even and steady gait. Pt provided snack per request. Pt reports doingwell and denies further needs. 2015: Pt sitting in dining area. Pt tense, preoccupied, and staring forward. Asked pt if doing okayand pt continues to look forward and mutter to self. After short time, pt looks up at mortgage loan underwriter. Askedagain if pt okay and, after delay, pt stands up staring at the mortgage loan underwriter and replies I'm okay. Pt then sits back down and keeps staring forward. Pt reports music is currently helping keep him calm. Ptdenies wanting medication to help with racing thoughts. Pt verbalizes understanding to come to thiswriter or staff for needs or if start feeling tense or agitated. 2101: Pt up to nurses station for night medications. Pt takes without problem. PRN Trazodone administered for sleep aid per pt request. 2250: Pt laying in bed with eyes closed. Pt has all lights turned on in room. When turned one off, pt eyes shoot open and pt asks for it to be back on. Pt then closes his eyes and continues to rest quietly. Will continue to monitor. * Patti Sauceda, HAND DEVELOPER - 11/27/2019 1:00 PM EDT 13:00 - 13:10 Recreation Therapy - [facility] and he was receptive to joining group. Pt was educated to a new card game Trash. Pt struggled to follow direction or grasp concept ofthe simple sequencing of game. Pt gave his cards back to this mortgage loan underwriter and stated he was going to just watch. Pt then left group a few minutes later without reason. After group pt was observed taking drinks off the dietary return tray cart. When approached pt stated he was getting items off of his tray but this is questionable. This mortgage loan underwriter informed CRISTAL Lassiter of patient's actions. * Dianna Liang LISW - 11/27/2019 12:35 PM EDT Covering for DANETTE Felder, who is out of the office. Met with patient for daily rounds. He is rather bizarre in conversation, preoccupied and fixated on discharge and using the speaker to listen to music. He denies any current d/c needs. environmental services technician to follow. * Manuel Peralta RN - 11/27/2019 11:02 AM EDT 0730 - at the beginning of the shift the pt found resting in the pt room 1050 - [facility] and the pt agrees to interaction and the pt denies pain and the pt denies other needs and the pt is able to take all scheduled medication 1049 dt pt had been sleeping at scheduled pass without difficulty and the pt reports appetite good and the pt reports sleep good and the pt denies si and the pt denies hi and the pt contracts for safety and the pt denies anxiety and denies depression and the pt denies hallucinations and pt eye contact poor and affect congruent during interaction Pt di evinced by rambling bizarre speech and statements such as god is mad at me and that is why I had to do all of the bad things I did 1330 - The pt is observed responding to unseen others while selecting snack at nurses station 1515 - The pt has continued to exhibit hypermobility pacing in the hallway and insistantly requesting snacks of food and drink and is walking in the hallway at the time of this writing * Manuel Peralta RN - 11/27/2019 11:02 AM EDT 0730 - at the beginning of the shift the pt found resting in the pt room 1050 - The pt found in lounge and the pt agrees to interaction and the pt denies pain and the pt denies other needs and the pt is able to take all scheduled medication 1049 dt pt had been sleeping at scheduled pass without difficulty and the pt reports appetite good and the pt reports sleep good and the pt denies si and the pt denies hi and the pt contracts for safety and the pt denies anxiety and denies depression and the pt denies hallucinations and pt eye contact poor and affect congruent during interaction Pt di evinced by rambling bizarre speech and statements such as god is mad at me and that is why I had to do all of the bad things I did 1330 - The pt is observed responding to unseen others while selecting snack at nurses station * Patit Sauceda, HAND DEVELOPER - 11/27/2019 9:00 AM EDT 09:00 - 09:30 Goal Group and AM Warm Up - Pt in the dining area upon approach, pt finishing his breakfast and eating pancakes and syrup without any utensils. Invited pt to attend group after he completed eating and washed his hands. Pt agreed to do so. Goal Group Identified Feeling: Great. I feel sooo good. I'm ready to go. Pt Identified Daily Goal: To be discharged. Pt preoccupied with DC and has poor insight towards his treatment needs. AM Warm Up Pt was encouraged to follow along to deep breathing exercises and ROM stretches. Pt completed less than 50% of exercises and he remained distracted and preoccupied through out group. Pt making bizarre hand gestures and movements as though he was responding to internal stimuli. The benefits of deep breathing and regular exercise were discussed. * Laila Lima LPN - 11/27/2019 12:47 AM EDT 0045: Patient resting quietly supine in his bed, respirations non labored, no signs of any distressor discomfort noted by this staff, 15 minute checks maintained for his safety. 0345: Patient continues to rest without any noted distress, remains supine, eyes closed, respirations non labored, 15 minute checks maintained for his safety. 0543: Patient is resting well, no signs of any distress, repositioned self onto his left side, eyesremains closed, respirations non labored, appeared to have slept for 6.5 hours. * Malena Sahu RN - 11/26/2019 11:31 PM EDT 2330: Pt resting in bed with eyes closed. Respirations even and non labored. 0100: Pt remains resting in bed with eyes closed. Respirations even and non labored. 0300: Pt remains resting in bed with eyes closed. Respirations even and non labored. * Carlos Chung MD - 11/26/2019 4:28 PM EDT Psychiatry Progress Note Patient Name: Aba Carlton Admit Date: MR #: [id number] : 2000 Perpetual Assessment Aba Carlton is a 19 y.o. male was seen individually, case discussed with nursing staff, medical records were reviewed. Patient has a history of previous psychiatric hospitalization under Dr. Goldman's care. He was brought to the emergency department on 11/20/2019 for agitation, tachycardia and was admitted on medical floor and was seen by Dr. Goldman on psychiatry consult. After medical stabilization, patient was admitted to behavioral health unit for further hospitalization and treatment. Patient is currently receiving Depakote, Invega 6 mg, Tapazole, Inderal. He is due for injection Invega Sustenna 234 mg IM on 12/06/2019. During evaluation, patient was observed somewhat agitated, restless, is staring, mumbling, somewhatintrusive, appears to be responding to internal stimuli. Psychomotor activities appeared in agitated range. Patient's medical records were reviewed, at this time will increase the dose of her Depakote ER to 500 mg twice daily and will monitor behavior closely. Diagnosis & Plan/Recommendations PRINCIPAL DIAGNOSIS: Schizoaffective disorder, bipolar type (HCC) Other * Schizoaffective disorder, bipolar type (HCC) Assessment & Plan A: Aba is back in the hospital, again non-compliant with medications. This time, he stole a car and ran off. Brought in by police. He has no insight whatsoever that his behaviors cause repeated hospitalizations. He denies all psychiatric symptoms and is clamoring for discharge.Guardianship paperwork has already been submitted during last hospitalization. Plan: Admit for patient safety and the safety of the community Unpredictable and elopement precautions PRN medications for agitation, anxiety and insomnia, EPS Continue medical treatment of hyperthyroid state per endocrinology Increase dose of next Invega Sustenna injection to 234 mg q 4 weeks (12-05) Discuss possible addition of lithium with Dr. Nieto Milieu therapy Individual and group sessions as tolerated SW liason with family and AOT program Internal medicine consult Lab and radiology as indicated Comorbid issues impacting my care plan include Hypothyroidism. Following for Interval History: Review of Systems: Constitutional:No fever, no weight loss Eyes:No diplopia ENT:No sinus drainage CV:No chest pain. No ankle swelling Resp:No dyspnea. No wheezing GI:No abdominal pain.No abdominal distention :No dysuria Neuro:No headache Integumentary:No skin rash MuscSkel:No arthralgias Endo:No polyuria Heme/lymphatic:No apparent lymphadenopathy Allergic/Immunologic:No hives Physical Examination: Vital Signs: BP 115/69 (BP Location: Right arm, Patient Position: Standing) Pulse (!) 110 Temp 97.3 F (36.3 C) Resp 16 Ht 5' 7 Wt 63 kg (138 lb 12.8 oz) SpO2 95% BMI 21.74 kg/m Mental Status Evaluation: General Appearance & Behavior: older than stated age, cooperative and minimally engaged Grooming & Hygiene: street clothes Psychomotor Activity: psychomotor agitation Gait & Station stable gait Speech: hyperverbal, loud, pressured and rambling Flow of Thought: flight of ideas Thought Associations: Loose Content of Thought: delusions and paranoia Mood: anxious Affect: fearful, irritable, labile and hypomanic Insight: poor Judgment: poor Orientation: alert and oriented to person, place, time, and circumstances Memory: intact recent and remote Attention: adequate Concentration: intact Language: intact Fund of Knowledge: estimated average intelligence Laboratory and Additional Data Reviewed: Laboratory 11/26/19 4:40 PM Microbiology 11/26/19 4:40 PM Pathology 11/26/19 4:40 PM Medications 11/26/19 4:40 PM Transcriptions 11/26/19 4:40 PM Treatment options and alternatives reviewed with patient. Risks, benefits, side effects of all psychiatric medications discussed with patient and informed consent obtained. All questions were answered. Carlos Chung MD 11/26/2019 4:28 PM * Emerita Vidal MSW LISW-S - 11/26/2019 4:15 PM EDT Attempted to review treatment plan update with patient however he refused at this time. Patient hasbeen changed back to Dr. Chung for his attending physician. [facility] No anticipated discharge date at this time. environmental services technician continues to follow. * Malena Sahu RN - 11/26/2019 3:40 PM EDT 1612: Temp 97.3 temporal. 1615: Pt is alert and oriented in hallway. Pt is cooperative. Pt appears anxious and is hypermobile. Maintains good eye contact. Flat affect. Pt smiles and laughs at inappropriate times. Pt is dressed in street clothes. Pt denies SI/HI/AH/VH and contracts safety with this staff. Pt appears to be responding to internal stimuli. Obsessive and paranoid delusions observed. Pt rates anxiety and depression both 0/10. Pt states he slept well and has a good appetite. Encouraged pt to express needs to staff. 1630: Pt eating dinner in dining room with peers. Calm and controlled. 1715: Pt walking up to exit doors, smiling and talking to the door. Pt redirectable. 1800: Pt walking in hallway. Pt is hypermobile but controlled. 2026: Pt received scheduled medication and took without difficulty. Blood pressure 134/86, heart rate 121. Will continue to monitor. 2130: Pt requests and given PRN atarax for increased and anxiety and PRN trazodone for sleep at this time. 2244: Pt in lounge watching tv. Calm and controlled. * Leta Cornejo CTRS - 11/26/2019 1:00 PM EDT PT agreed to attend group but was unable to focus or remain on task, frequently getting up and leaving group, to the point that he may have been present for 10 minutes of the 30 minute session. Pt paranoid with the activity presented, accusing mortgage loan underwriter of giving him negative playing cards and makingme have a bad game. * Lilly Ta CTRS - 11/26/2019 9:00 AM EDT Goal Group: Pt stated feeling great, awesome, ready to leave, enthusiastic Pt stated goal To be discharged. When asked why he felt he was ready for discharge, pt stated because I have learned mylesson and now I am behaving. Pt maintained an intense blank stare throughout. AM Warm Up: Pt did not participate in breathing and chair level exercises. Continued to stare intensely and engage in own movements at times. * Elisha Veloz RN - 11/26/2019 8:10 AM EDT 0720 patient resting in bed at this time. Did not awaken patient d/t not sleeping during the night. 0845 Patient awake at this time. Heated up breakfast. Sitting in dining area eating breakfast. 0920 Patient laying in bed. Confused. Patient expressing concern on why he is here and when he willleave. Patient requesting to speak with his doctor. Flat. Labile. Denies anxiety and depression.Denies SI. Denies AH or VH. Patient continues to respond to internal stimuli. Laughing inappropriately to self.Thought blocking. Patient stated there's a bug in my neck, I can feel it crawling, it in My spine Patient denies pain. Eye contact is poor. Sleeping is poor. Eating good Patient continues requiring more snacks. Patient participating in groups. Showered yesterday. Patient spoke about drug use and stated I dont' do drug patient stated he had a positive amphetamine result d/t taking adderall Patient denies any further needs at this time. 1030 Patient pacing in hallway. Smiling and laughing to self. 1130 Patient requesting music this RN to play music at this time. 1150 Patient eating lunch in the dining are 1340 Patient provided a chicken salad sandwich at this time. 1345 Patient continues to request snack. Reminded staff has to put limits on food. Patient verbalized understanding. * Gisel Vinson RN - 11/26/2019 12:10 AM EDT 2330 Patient up pacing in hallway. 2250 Patient requested and was provided Trazodone 50 mg po as repeat. Patient cooperative with mouth checked after taking. 2359 Patient currently up and about on unit. Encouraged to try to get some sleep. States is going to try. Special Precautions continue--see precaution monitoring for observations and documentation. 0200 Patient in bed, respirations easy. 0345 Patient awake at 0300 requested and provided chocolate pudding, mortgage loan underwriter Informed patient no clean spoons. Voiced could eat without a spoon. Retrned to bed resting quietly since then. 0400 Patient resting in bed with eyes closed and even respirations. 0530 Slept approximately 4 hours, from 0030 to 0245 present without concerns. Patient remains in bed resting. * Fabienne Posada RN - 11/25/2019 5:16 PM EDT 1715 Pt has been up and about the unit, bizarre and pacing, wide eyed, dressed casually, Pt becomes easily frustrated and agitated with peers and staff. Has many requests mainly for snacks and drinks. Pt in dining area eating dinner, but does not sit, is standing while eating, has trouble staying focused on a task. Peer sitting at the table with him is tolerant of his behavior. Pt very tense while opening his mayonaise packets, puts 4 packs of mayonaise on 1 sandwich. Pt religiously preoccupied, speaking of the antichrist wearing white clothing with rambling, pressured speech. After eating, Pt resumed pacing throughout the hallways. 1730 Pt very tense, up to nurse's station, tearful, with rambling pressured speech, states, I need surgery! Pt insistent that a Bee bug is in his brain, eating the soft tissue of his brain. Pt has fixed delusion of this and is difficult to redirect. Pt then stating the September bug is eating my spinalcord! This nurse obtained Pt's Vital signs, assessed the Pt for any EPS symptoms, no cog wheeling noted, redirecting the Pt by walking with him in the hallway and discussing his Grandparents. Pt attempted deep breathing exercises but could not stay focused for this. 174 Pt continues focusing on his delusion of having a bug in his brain. He is very fixed and concrete with this. Pt alert and oriented, able to state where he is, Pt currently denies any visual or auditory hallucinations,given Atarax 50 mg PO for increased anxiety. 1920 Pt calmer at this time, continues to walk throughout the hallways, but is less tense, smiling inappropriately at times as if responding to internal stimuli. 2129 Pt remains up and about the unit, is calmer than previously and has not mentioned anything else to staff regarding a bug in his brain. Pt remains preoccupied and paces throughout the hallway, but is directable. Is compliant with hs meds. * Emerita Vidal MSW HAIRSPRING ADJUSTER-S - 11/25/2019 2:51 PM EDT Patient reviewed in treatment team meeting with Dr. Goldman. Dr. Goldman is now patient's attending doctor. Patient continues to be incessant with staff about when he will be discharged. Spoke with this patient when he was at the nurses' station stating he wanted to know when he was going to discharge. Informed him it would not be today. He became argumentative with this worker regarding discharging and then Dr. Goldman being his doctor, yelling he was going to francois this worker for changing his doctor without his permission. Informed this worker had nothing to do with the changes but would not calm down. This worker left the nurses' station as patient was getting more agitated with this worker. Informed later he had received IM medication as he continued to escalate. environmental services technician continuesto follow. * Leta Cornejo CTRS - 11/25/2019 1:15 PM EDT Pt resting soundly in bed when approached for group. PT did not wake to being addressed, thus did not attend. * Carey Goldman MD - 11/25/2019 12:13 PM EDT Psychiatry Progress Note Patient Name: Aba Carlton Admit Date: MR #: [id number] : 2000 Perpetual Assessment Aba Carlton is a 19 y.o. male presenting with agitation, flor and psychosis. This is his third hospitalization in a short period of time due to non- compliance as an outpatient. He is in the AOT program. Diagnosis & Plan/Recommendations PRINCIPAL DIAGNOSIS: Schizoaffective disorder, bipolar type (HCC) Other * Schizoaffective disorder, bipolar type (HCC) Assessment & Plan A: Aba is back in the hospital, again non-compliant with medications. This time, he stole a car and ran off. Brought in by police. He has no insight whatsoever that his behaviors cause repeated hospitalizations. He denies all psychiatric symptoms and is clamoring for discharge.Guardianship paperwork has already been submitted during last hospitalization. Plan: Admit for patient safety and the safety of the community Unpredictable and elopement precautions PRN medications for agitation, anxiety and insomnia, EPS Continue medical treatment of hyperthyroid state per endocrinology Increase dose of next Invega Sustenna injection to 234 mg q 4 weeks (8-) Discuss possible addition of lithium with Dr. Nieto Milieu therapy Individual and group sessions as tolerated ELENA liaartuhr with family and AOT program Internal medicine consult Lab and radiology as indicated Comorbid issues impacting my care plan include substance use and thyrotoxicosis. Following for agitation, paranoia, grandiose delusions Interval History: Aba became very upset about my being his doctor after I told him he would be staying a while this admission, until he was more stable. He began to demand Dr. Chung resume care and very quickly escalated to angry, violent acting out. He is obsessed with getting out of the hospitaland seems to dismiss the behaviors that get him admitted. Security had to come and prn medications were given. Review of Systems: Constitutional, cardiac, pulmonary, neurologic, musculoskeletal, GI and systems reveiwed and negative except as noted above Physical Examination: Vital Signs: BP 132/83 Pulse (!) 111 Temp 98.1 F (36.7 C) (Oral) Resp 16 Ht 5' 7 Wt 63 kg (138 lb 12.8 oz) SpO2 98% BMI 21.74 kg/m Mental Status Evaluation: General Appearance & Behavior: age appropiate, thin and gaunt, uncooperative, defensive, hostile and demanding Grooming & Hygiene: unkempt Psychomotor Activity: no psychomotor abnormalities or muscle atrophy noted Gait & Station stable gait and ability to rise from bed/chair without assistance Speech: hyperverbal, loud, pressured and profane language Flow of Thought: perseveration Thought Associations: Derailment Content of Thought: No evidence of SI/HI, delusions, paranoia and obsessions Mood: frustrated Affect: angry Insight: impaired Judgment: impaired Orientation: alert and oriented to person, place, time, and circumstances Memory: impaired short term, intact remote Attention: impaired Concentration: impaired Language: fluent Fund of Knowledge: estimated average intelligence Laboratory and Additional Data Reviewed: Laboratory 11/25/19 12:22 PM Medications 11/25/19 12:22 PM Transcriptions 11/25/19 12:22 PM Treatment options and alternatives reviewed with patient. Risks, benefits, side effects of all psychiatric medications discussed with patient and informed consent obtained. All questions were answered. Carey Goldman MD 11/25/2019 12:13 PM * Elisha Veloz RN - 11/25/2019 11:10 AM EDT 0815 Patient sitting on side of bed. Calm. Cooperative. Patient denies anxiety and depression. Denies Si. Denies AH or VH. Although patient is clearly responding to stimuli. Eye are darting around the room. Thought blocking during conversation. Reports he is sleep great Eating great Patient stated im good, I dont' have a mental problem, Im here because it was either here or snf Patient reports he is going to group. Denies any needs or concerns at this time. [address] Goldman, patient agitated stating your not my doctor, I want Dr. Chung patient refused to talk to Dr Goldman. ELENA Wolffer stated, your not leaving today Patient began shouting profanities and pacing around the unit. Speech is pressured. Tense. Angry. Patient stated that's against my legal right to change my doctor without my permission, I want to speak to someone, im going to francois the [facility] Security on unit. Patient walked with security and 3 nurses to his room. Patient taunting security stating go ahead and put your hands on me Patientwalked in his room and pulled his pants down and stated go ahead and give it to me Recommend upper thigh, patient agreed. Vistril IM and Geodon 20mg IM to left upper thigh. Patient refused to lay down. Continued to pace the bone stating you injected me with estrogen you all are pumping gas in the air, I can see it Reoriented patient at this time. 1400 patient at nurses station requesting to speak with Dr. Goldman. Notified Dr. Goldman. * Lilly Ta CTRS - 11/25/2019 9:00 AM EDT Goal Group and AM Warm Up: Pt was sitting in lounge watching TV when approached for group, refused to attend, not stating reason. * Gisel Vinson RN - 11/24/2019 11:55 PM EDT 2330 Resting in bed. 0000 Patient currently resting in bed at this time. Special Precautions continue--see precaution monitoring for observations and documentation. 0215 Patient in bed, respirations easy. 0400 Patient resting in bed with eyes closed and even respirations. 0530 Slept approximately 8 hours, from 2129 to present without concerns. Patient remains in bed resting. 0600 Patient awake to nursing station requested and provided egg salad sandwich for snack and Denia Mist. Requested and provided an ice dream sandwich. * Malena Sahu RN - 11/24/2019 7:56 PM EDT 2010: Pt received scheduled medication and took without difficulty. Blood pressure 144/84, heart rate 114. Pt cooperative and denies further needs. 2033: Pt requests and given PRN trazodone for sleep at this time. 2129: Pt resting in bed with eyes closed. Respirations even and non labored. * Paige Wong RN - 11/24/2019 6:39 PM EDT 1800 Pt walking the halls. Unable to sit in one place for too long. Pt is disheveled and dressed inown clothes. Flat affect. Fair eye contact. Rates anxiety 6/10. Depression 0/10. Denies SI/HI/H. Ptis impulsive, preoccupied and ambivalent Pt is agitated he is here and wants to leave. Easily redirectable. Pt reports eating and sleeping well. However, pt is often asking for snacks. 1836 Pt given PRN atarax 50mg PO for increased anxiety. * Carey Goldman MD - 11/24/2019 3:48 PM EDT Psychiatry Progress Note Patient Name: Aba Carlton Admit Date: MR #: [id number] : 2000 Perpetual Assessment Aba Carlton is a 19 y.o. male presenting with acute agitation, psychosis and flor in the context ofnon-compliance with treatment and thyrotoxicosis. Diagnosis & Plan/Recommendations PRINCIPAL DIAGNOSIS: Schizoaffective disorder, bipolar type (HCC) Other * Schizoaffective disorder, bipolar type (HCC) Assessment & Plan A: Aba is back in the hospital, again non-compliant with medications. This time, he stole a car and ran off. Brought in by police. He has no insight whatsoever that his behaviors cause repeated hospitalizations. He denies all psychiatric symptoms and is clamoring for discharge.Guardianship paperwork has already been submitted during last hospitalization. Plan: Admit for patient safety and the safety of the community Unpredictable and elopement precautions PRN medications for agitation, anxiety and insomnia, EPS Continue medical treatment of hyperthyroid state per endocrinology Increase dose of next Invega Sustenna injection to 234 mg q 4 weeks (8-22) Discuss possible addition of lithium with Dr. Nieto Milieu therapy Individual and group sessions as tolerated SW liason with family and AOT program Internal medicine consult Lab and radiology as indicated Comorbid issues impacting my care plan include thyrotoxicosis. Following for agitation, hallucinations, delusions, poor judgment, insomnia Interval History: This is the third hospitalization for this young man in a period of three months.Guardianship has been sought. He has proven himself incapable of managing in the community for evena day. Review of Systems: Constitutional, cardiac, pulmonary, neurologic, musculoskeletal, GI and systems reveiwed and negative except as noted above Physical Examination: Vital Signs: BP (!) 160/76 Pulse (!) 110 Temp 97.5 F (36.4 C) Resp 18 Ht 5' 7 Wt 63 kg (138 lb 12.8 oz) SpO2 98% BMI 21.74 kg/m Mental Status Evaluation: General Appearance & Behavior: age appropiate, thin and gaunt, uncooperative, defensive, hostile, demanding and good eye contact Grooming & Hygiene: hospital gown Psychomotor Activity: restless and psychomotor agitation Gait & Station stable gait and ability to rise from bed/chair without assistance Speech: hyperverbal and pressured Flow of Thought: flight of ideas and perseveration Thought Associations: Derailment Content of Thought: No evidence of SI/HI, delusions and paranoia Mood: fine Affect: blunted Insight: impaired Judgment: impaired Orientation: alert and oriented to person, place, time, and circumstances Memory: intact recent and remote Attention: impaired Concentration: reduced Language: fluent Fund of Knowledge: estimated average intelligence Laboratory and Additional Data Reviewed: Laboratory 11/24/19 3:54 PM Medications 11/24/19 3:54 PM Transcriptions 11/24/19 3:54 PM Treatment options and alternatives reviewed with patient. Risks, benefits, side effects of all psychiatric medications discussed with patient and informed consent obtained. All questions were answered. Carey Goldman MD 11/24/2019 3:48 PMPsychiatry Progress Note Patient Name: Aba Carlton Admit Date: MR #: [id number] : 2000 Perpetual Assessment Aba Carlton is a 19 y.o. male presenting with agitation and psychosis Diagnosis & Plan/Recommendations PRINCIPAL DIAGNOSIS: Schizoaffective disorder, bipolar type (HCC) Other * Schizoaffective disorder, bipolar type (HCC) Assessment & Plan A: Aba is back in the hospital, again non-compliant with medications. This time, he stole a car and ran off. Brought in by police. He has no insight whatsoever that his behaviors cause repeated hospitalizations. He denies all psychiatric symptoms and is clamoring for discharge.Guardianship paperwork has already been submitted during last hospitalization. Plan: Admit for patient safety and the safety of the community Unpredictable and elopement precautions PRN medications for agitation, anxiety and insomnia, EPS Continue medical treatment of hyperthyroid state per endocrinology Increase dose of next Invega Sustenna injection to 234 mg q 4 weeks (8-) Discuss possible addition of lithium with Dr. Nieto Milieu therapy Individual and group sessions as tolerated SW liason with family and AOT program Internal medicine consult Lab and radiology as indicated Comorbid issues impacting my care plan include thyrotoxicosis. Following for flor and psychosis, agitation, non-compliance Interval History: see above Review of Systems: Constitutional, cardiac, pulmonary, neurologic, musculoskeletal, GI and systems reveiwed and negative except as noted above Physical Examination: Vital Signs: BP (!) 160/76 Pulse (!) 110 Temp 97.5 F (36.4 C) Resp 18 Ht 5' 7 Wt 63 kg (138 lb 12.8 oz) SpO2 98% BMI 21.74 kg/m Mental Status Evaluation: General Appearance & Behavior: uncooperative, defensive, hostile and demanding Grooming & Hygiene: hospital gown Psychomotor Activity: psychomotor agitation Gait & Station stable gait and ability to rise from bed/chair without assistance Speech: hyperverbal, pressured and rambling Flow of Thought: flight of ideas and perseveration Thought Associations: Derailment Content of Thought: No evidence of SI/HI, delusions and paranoia Mood: fine Affect: blunted Insight: impaired Judgment: impaired Orientation: alert and oriented to person, place, time, and circumstances Memory: intact recent and remote Attention: impaired Concentration: impaired Language: fluent Fund of Knowledge: estimated average intelligence Laboratory and Additional Data Reviewed: Laboratory 11/24/19 3:59 PM Medications 11/24/19 3:59 PM Transcriptions 11/24/19 3:59 PM Treatment options and alternatives reviewed with patient. Risks, benefits, side effects of all psychiatric medications discussed with patient and informed consent obtained. All questions were answered. Carey Goldman MD 11/24/2019 3:48 PM * Emerita Vidal, IAN HAIRSPRING ADJUSTER-S - 11/24/2019 1:36 PM EDT Patient is a court probate to this facility from the community dated 11/21/2019. Patient has been admitted to behavioral health unit at this facility two in October (10/19/2019 and 11/12/2019). Reason for this admission following his most recent discharge from our unit he took his grandparents car without permission, refused to take his medications, and was trying to get to [place] when eventually found by [place] Police (without grandparents' car) and brought to ED. Due to his court involvement with [facility] ([facility]) he has been probated by [employer] Chandra to this hospital for court ordered treatment. Patient is known to this worker and demanded to see worker this morning to be discharged. Patient informed he is court ordered to be here and will not be discharge until compliant with medication andphysician feels he is not a danger to himself or others once discharged. Patient was not pleased with this worker's response and walked away from worker. Patient did agreed to sign an RANDEE for grandparents for this worker and staff to speak with to keep updated. Patient refused to sign or review treatment plan with this worker at this time. This was noted and put on chart. Patient's grandmother spoke with this worker. Updated her briefly. environmental services technician continues to follow. * Re Arriaga, HAND DEVELOPER - 11/24/2019 1:10 PM EDT Recreation Therapy: Pt was informed that group was to begin, however, pt easily distracted and unable to focus or remain in group. * Leta Cornejo, HAND DEVELOPER - 11/24/2019 9:15 AM EDT [id number] Goal Group: Pt out in TV lounge when approached for group, willing to attend and brought self to group room. PT tense, guarded and watchful throughout group. Would not hold eye contact withwriter or others in the group, staring past and/or through others. PT restless, not able to remain seated, getting up and walking to center of room and then returning to seat. PT distracted in thoughts, responding to internal stimuli, despite denying such. Pt lacking insight into reason for admission, stating I was doing fine before coming in, nothing going on with me and there still isn't. Orientation provided to group and pt indifferent. Pt cited that he was feeling great because I am ready for DC again, pt could not be reasoned with on need for [place]. Pt set goal for the day of seeing Dr. Weiner and my addiction social worker because I need to go. * Elisha Veloz RN - 11/24/2019 7:51 AM EDT 0745 Patient laying in bed at this time. Woke for breakfast. 0900 Patient sitting on side on side of bed. Patient sat up quickly croatian style on the bed and stated what do you want to talk about? Patient presents tense. Agitated. Denies SI. Denies anxiety and depression. Denies pain. Denies AH and VH. Although patient appears to be responding to internal stimuli. Patient eyes are darting around the room. Patient reports he is here because I keep fighting I keep repeating the same stuff over and over Patient reports he did well for three days after his last admission but then he left home d/t my grandpa and I not seeing eye to eye Reports hejust needs distance from his egoism Patient reports he remembers taking his grandparents car. Hestated his goal is to leave in a taxi and go to [address] Patient I use to have my mom butnot anymore Patient speech is pressured. Eye contact is poor. Reports he is sleeping good. Reportshe is eating good but remains overly hungry. Patient took medication without difficulty. Mouth check performed. 0915 Patient taking a shower at this time. 0935 Patient in group at this time. 1000 Dr. Gerson martinez. Stated she would like Notified before patient leaves. 1115 Patient pacing around unit. Elevated. Patient standing in front of tv when other patients are trying to watch. Patient is laughing to himself as he walks in the bone. 1130 Security on unit d/t patients being upset with this patient Geodon given at this time PO. Patient stated why do I have to take this, theyre the ones mad Educated patient on mediation. Patientcompliant. Mouth check performed. 1300 Resting in bed * Ghulam Garcia RN - 11/24/2019 12:48 AM EDT 0030 Orders and lab work reviewed, patient observed resting quiet in bed, eyes closed, resp even 0600 Has slept 7-8 hours overnight, at present remains asleep. * Malena Sahu RN - 11/23/2019 3:38 PM EDT 1600: Pt in lounge watching tv. Calm and controlled. 1620: Pt eating dinner in lounge. 1630: Pt is alert and oriented in room. Pt is cooperative. Maintains good eye contact. Flat affect.Pt is dressed in street clothes. Pt denies SI/HI/AH/VH and contracts safety with this staff. ANNA delusions. Pt rates anxiety and depression both 0/10 and states that he feels great. Pt states he slept well and has a good appetite. Encouraged pt to express needs to staff. 1800: Pt hypermobile in hallway. Pt is controlled. 2000: Temp 97.5 temporal. 2030: Pt resting in bed awake. Calm and controlled. 2052: Pt received scheduled medication and took without difficulty. Blood pressure 160/76, heart rate 110. 2130: Pt resting in bed with eyes closed. Respirations even and non labored. * Patti Sauceda CTRS - 11/23/2019 2:00 PM EDT 14:00 - 14:30 Recreation Therapy - Pt recalled that this mortgage loan underwriter had told him during assessment thatgroup was at 14:00 and he was in the lounge waiting for group to start. Pt worked with peers on a trivia puzzle about summer leisure activities and resources. Pt did fair with task and he was able tofollow along with few cues needed. Pt did appear preoccupied at times as though he was distracted by internal stimuli. * Celia Morfin - 11/23/2019 11:57 AM EDT Spiritual Health Care Note Patient attended Spirituality group. Topic was Gratefulness Showroom Executive Director role introduced and how to contact if follow up is requested. Chaplain Celia Morfin MDiv [facility] [phone] office [phone] pager [phone] on-call pager (after 5pm and weekends) 11/23/19 1000 Clinical Encounter Type Visit Type Non Crisis Non Crisis Visit Group Visited With Patient Visited By Other (comment) (Showroom Executive Director) Visit Length (minutes) 60 * Lora Oropeza RN - 11/23/2019 8:00 AM EDT 0800 pt is sitting in the dining area, controlled.. talk-a-tive. Needy. Pt's appetite is good. Pt was compliant with the taking of his meds. Pt did contract for safety. Pt agrees to seek out the staff should he need assistance. Pt was encouraged to attend all of his groups, and to journal his feelings. Short attn span. Unpredictable . Pt did agree to use controlled and polite behaviors. Manipulative. Attn seeking. Intrusive. boundaries was established with the pt, r/t personal space and social distancing. The pt did say that he understands. Watchful. Pt voices that he feels ok--how are you,emotional support was given to the pt. 1030 pt refuses to attend group this a.m. pt walks in the bone. The pt did apologize for his outburst of this day. Again--the pt was encouraged to journal his feelings. 1320 Dr. Chung was in to see the pt., see the MD orders. Pt tests limits. Pt challenges others at times. Again--emotional support was given to the pt. * Ghulam Garcia RN - 11/23/2019 12:38 AM EDT 0030 Orders and lab work reviewed, patient awake at beginning of shift, provided food an drink, patient appearing tense and suspicious, did go to room, currently resting in bed 0615 Has rested quiet, sleeping 5-6 hours to this point, currently remains asleep * Brooklyn Mccrary RN - 11/22/2019 10:33 PM EDT 2230: Patient laying in bed on top of covers naked, masterbating. He stopped when I opened the door. * Lois Ramirez RN - 11/22/2019 9:23 PM EDT 21:15 arrived on unit ambulating with one E.D. staff and one security staff. Involuntary admission form observed with patient. Pt asks for soap, etc and requests to take a shower right away. Pt states my thyroid is fine now, so I should be heading home soon. When asked why he was admitted to psychiatric dept, pt does not know why. Pt asks if a cab can take him to [place] upon discharge. Vital signs obtained, height and weight obtained. Patient changed into new gown and no wounds noted on skin or contraband found on person. 22:40 Pt asking for multiple snacks and when told to wait by one nurse, tries to ask other nurses for snacks. Pt pacing about the unit with inappropriate smile. Why were they admitted? Pt reportedly stole grandmother's car and had a plan to run away to [place]. From: [facility] Admitting physician and diagnosis: Dr. Chung, schizoaffective disorder, bipolar type Behavior, Though Process, SI/HI/AH/VH, mood, affect: hypermobile, preoccupied, impulsive, anxious, elevated Socioeconomic history: single, lives with grandparents Psychiatric History: previous admissions, schizophrenia, bipolar Emotional, Physical, Sexual Abuse: denies Sleep, Nutrition, ADL's: unable to assess sleep, independent ADL's Limitations: insight Taking medications as directed: no, no thyroid or psychiatric medications Abnormal Labs: +amphetamines Tobacco, substance abuse, alcohol use: daily smoker, occasional alcohol, drugs Contraband search: None found Tour of unit: lois Orders: Dr. Chung Paperwork signed: no documented in this encounter* Cindy Nieto MD - 01/14/2020 1:33 PM EDT Subjective Patient ID: Aba Carlton is a 19 y.o. male. Graves' disease and Danilo's thyroiditis. HPI patient is a 19-year-old male with a history of Graves' disease and schizoaffective disorder, bipolar type. He was initially admitted on October 19, 2019 for psychiatric treatment and was diagnosed with Graves' disease at that time. Initial free T4 was greater than 8.0, TSI positive at 5.0. Review of his previous laboratory testing revealed that he had evidence of hyperthyroidism when thyroid function tests were performed in February,. He was started on methimazole 40 mg daily and SSKI in early October, and his free T4 improved to approximately 2.6 during his admission. He was discharged on10/30/2019 on methimazole 40 mg daily but did not take his methimazole, and he was readmitted on 11/12/2019 with psychiatric symptoms and persistent hyperthyroidism with free T4 increased back up to 6.9. He was again discharged but readmitted from 11/19/2027 until 12/20/2019 for an extended hospital staywith the behavioral health unit. During that admission, he received methimazole 40 mg daily with gradual improvement in his free T4 to 1.4 on 12/08/2019. He was discharged on methimazole 30 mg daily and his free T4 continue to improve. He was readmitted on 12/26/2019 when screening blood tests to obtain medical clearance to [facility] were performed and revealed an elevated CPK. He was hospitalized from 12/25 through 01/05/2020. His CPK elevation was thought to be secondary to dehydration. His most recent TFTs on01/04 revealed TSH<0.01, FT4--0.9. During that admission his methimazole dose was reduced to 20 mg daily. He also continues on metoprolol He was admitted to [facility], but was only there for 2 days and was dischargedto the care of his grandparents. He had a court hearing today, and currently is living with his grandparents. He has a guardian, Benitez Hitchcock. Apparently next week he will be admitted to a facility in [place], [place]. He still will be receiving services from [facility] according to his grandparents. It is unclear if he will be able to continue to follow-up with endocrinology here at [facility]. The following portions of the patient's history were reviewed and updated as appropriate: allergies, current medications, past family history, past medical history, past social history, past surgicalhistory and problem list. Review of Systems Constitutional: Negative for appetite change and fatigue. Unexpected weight change: gain approx 30 pounds. HENT: Negative for trouble swallowing and voice change. Eyes: Negative for pain, redness and visual disturbance. Respiratory: Negative for shortness of breath. Cardiovascular: Negative for chest pain and palpitations. Gastrointestinal: Negative for constipation and diarrhea. Endocrine: Negative for cold intolerance and heat intolerance. Musculoskeletal: Negative for neck pain. Neurological: Positive for tremors (improved). Psychiatric/Behavioral: Negative for sleep disturbance. Objective BP 126/86 Pulse (!) 116 Ht (P) 5' 7 Wt 76.9 kg (169 lb 8 oz) BMI (P) 26.55 kg/m Wt Readings from Last 3 Encounters: 01/14/20 76.9 kg (169 lb 8 oz) 12/26/19 67.1 kg (148 lb) 11/22/19 63 kg (138 lb 12.8 oz) Physical Exam Constitutional: Appearance: He is well-developed. HENT: Head: Normocephalic and atraumatic. Eyes: Extraocular Movements: Extraocular movements intact. Comments: No exophthalmos or lid lag Neck: Comments: Diffuse thyromegaly Cardiovascular: Rate and Rhythm: Regular rhythm. Tachycardia present. Heart sounds: Normal heart sounds. No murmur. Pulmonary: Effort: Pulmonary effort is normal. No respiratory distress. Breath sounds: Normal breath sounds. No wheezing or rales. Skin: General: Skin is warm and dry. Findings: No erythema. Neurological: General: No focal deficit present. Mental Status: He is alert. Psychiatric: Mood and Affect: Affect is flat. Behavior: Behavior is withdrawn. 01/05/20 TSH <0.01, FT4 0.9 12/30 Free T3: 3.0 12/28 TSH <0.01, FT4--0.9 12/26/19 TSH<0.01, FT4--1.0 12/08/19 TSH <0.01, FT4--1.4 11/19/19 TSH <0.01, FT4--3.7 11/12/19: TSH: <0.01; Free T4: 6.9 11/06/19: TSH: <0.01; Free T4: 6.4 10/30/19: Free T4: 2.6 10/27/19: Free T4: 2.9 10/24/19: Free T4: 5.1 10/21/19 Na 141, K 4.1, creat 0.59,AST 29, ALT 56, WBC 8.81, Hgb 12.2, Hct 38.1, Plt 231k, TSH <0.01, FT4>8.0, FT3-24.5 10/19/19: TSI: 5.0; TPO: 278.1 05/14/18 TSH<0.01, FT4--4.73 03/06/18 TSH <0.01, FT4--3.49 Assessment/Plan: Diagnoses and all orders for this visit: Graves disease: Patient with Graves' disease and Danilo's thyroiditis, on methimazole since October,, when admitted to the psychiatric unit for treatment of schizoaffective disorder, bipolar type. He has had multiple admissions outlined above. Currently he is an outpatient living with his grand parents, awaiting admission to a facility in [facility]. He has been taking methimazole 20 mg daily. His symptoms of hyperthyroidism have improved; he has regained 30 pounds and his tremors have improved. Denies other symptoms of hyperthyroidism. He currently is taking methimazole 20 mg daily and metoprolol twice daily, dose unknown. His grandmother is to call us with his metoprolol dose later today. Plan: Check TFTs today for possible methimazole dose adjustment. Document metoprolol dose. Call grandparents to report if his methimazole dose needs to be adjusted. Plan for recheck in 6 weeks; labs can be done on the day that he comes in for follow-up. If he is not able to follow-up with us in person, a lab slip for a TSH and free T4 was given to his grandparents. This could be done at an outside lab in 6 weeks.. He could have some management of his hyperthyroidism over the phone if necessary. Otherwise would like to see him in 6 weeks. - TSH; Future - T4, Free; Future - TSH; Future - T4, Free; Future Danilo's thyroiditis Electronically signed by Cindy Nieto MD 01/14/20 2:58 PM documented in this encounter* Cindy Nieto MD - 02/26/2020 1:30 PM EST Subjective Patient ID: Aba Carlton is a 19 y.o. male. Graves' disease and Danilo's thyroiditis. Thyroid Problem Symptoms include tremors (improved). Patient reports no cold intolerance, constipation, diarrhea, fatigue, heat intolerance or palpitations. patient is a 19-year-old male with a history of Graves' disease and schizoaffective disorder, bipolar type. He was initially admitted on October 19, 2019 for psychiatric treatment and was diagnosed with Graves' disease at that time. Initial free T4 was greater than 8.0, TSI positive at 5.0. Review of his previous laboratory testing revealed that he had evidence of hyperthyroidism when thyroid function tests were performed in February,. He was started on methimazole 40 mg daily and SSKI in early October, and his free T4 improved to approximately 2.6 during his admission. He was discharged on 10/30/2019 on methimazole 40 mg daily but did not take his methimazole, and he was readmitted on 11/12/2019 with psychiatric symptoms and persistent hyperthyroidism with free T4 increased back up to 6.9. He was again discharged but readmitted from 11/19/2027 until 12/20/2019 for an extended hospital stay with the behavioral health unit. During that admission, he received methimazole 40 mg daily with gradual improvement in his free T4 to 1.4 on 12/08/2019. He was discharged on methimazole 30 mg daily and his free T4 continue to improve. He was readmitted on 12/26/2019 when screening blood tests to obtain medical clearance to [facility] were performed and revealed an elevated CPK. He was hospitalized from 12/25 through 01/05/2020. His CPK elevation was thought to be secondary to dehydration. His most recent TFTs on01/04 revealed TSH<0.01, FT4--0.9. During that admission his methimazole dose was reduced to 20 mg daily. However, he he recently has been taking methimazole 20 mg AM and 10 mg PM. He was admitted to [facility], but was only there for 2 days and was dischargedto the care of his grandparents. He currently is living with his grandparents. He has a guardian, Benitez Hitchcock. He still will be receiving services from [facility] according to his grandparents. The following portions of the patient's history were reviewed and updated as appropriate: allergies, current medications, past family history, past medical history, past social history, past surgicalhistory and problem list. Review of Systems Constitutional: Negative for appetite change and fatigue. Unexpected weight change: gain approx 30 pounds. HENT: Negative for trouble swallowing and voice change. Eyes: Negative for pain, redness and visual disturbance. Respiratory: Negative for shortness of breath. Cardiovascular: Negative for chest pain and palpitations. Gastrointestinal: Negative for constipation and diarrhea. Endocrine: Negative for cold intolerance and heat intolerance. Musculoskeletal: Negative for neck pain. Neurological: Positive for tremors (improved). Psychiatric/Behavioral: Negative for sleep disturbance. Objective BP 133/87 Pulse (!) 101 Ht 5' 7 Wt 75.3 kg (166 lb) BMI 26.00 kg/m Wt Readings from Last 3 Encounters: 02/26/20 75.3 kg (166 lb) 02/11/20 71.2 kg (157 lb) 01/27/20 72.8 kg (160 lb 6.4 oz) Physical Exam Constitutional: Appearance: He is well-developed. HENT: Head: Normocephalic and atraumatic. Eyes: Extraocular Movements: Extraocular movements intact. Comments: No exophthalmos or lid lag Neck: Comments: Diffuse thyromegaly Cardiovascular: Rate and Rhythm: Regular rhythm. Tachycardia present. Heart sounds: Normal heart sounds. No murmur. Pulmonary: Effort: Pulmonary effort is normal. No respiratory distress. Breath sounds: Normal breath sounds. No wheezing or rales. Skin: General: Skin is warm and dry. Findings: No erythema. Neurological: General: No focal deficit present. Mental Status: He is alert. Psychiatric: Mood and Affect: Affect is flat. Behavior: Behavior is withdrawn. 02/26/20 TSH <0.01, FT4--0.7 (done after appointment) 01/14/20 TSH <0.01, FT4--1.1 01/05/20 TSH <0.01, FT4 0.9 12/30 Free T3: 3.0 12/28 TSH <0.01, FT4--0.9 12/26/19 TSH<0.01, FT4--1.0 12/08/19 TSH <0.01, FT4--1.4 11/19/19 TSH <0.01, FT4--3.7 11/12/19: TSH: <0.01; Free T4: 6.9 11/06/19: TSH: <0.01; Free T4: 6.4 10/30/19: Free T4: 2.6 10/27/19: Free T4: 2.9 10/24/19: Free T4: 5.1 10/21/19 Na 141, K 4.1, creat 0.59,AST 29, ALT 56, WBC 8.81, Hgb 12.2, Hct 38.1, Plt 231k, TSH <0.01, FT4>8.0, FT3-24.5 10/19/19: TSI: 5.0; TPO: 278.1 05/14/18 TSH<0.01, FT4--4.73 03/06/18 TSH <0.01, FT4--3.49 Assessment/Plan: Diagnoses and all orders for this visit: Graves disease: Patient with Graves' disease and Danilo's thyroiditis, on methimazole since October,, when admitted to the psychiatric unit for treatment of schizoaffective disorder, bipolar type. He has had multiple admissions outlined above. Currently he is an outpatient living with his grand parents. He has been taking methimazole 20 mg AM and 10 mg PM. His symptoms of hyperthyroidism haveimproved; he has regained 30 pounds and his tremors have improved. Denies other symptoms of hyperthyroidism. He no longer is taking metoprolol. Plan: Check TFTs today for possible methimazole dose adjustment. Call grandparents to report if his methimazole dose needs to be adjusted. Plan for recheck in 6 weeks; labs can be done on the day that he comes in for follow-up, if unable to come in sooner for TFTs before appointment. - TSH; Future - T4, Free; Future - TSH; Future - T4, Free; Future Danilo's thyroiditis ADDENDUM: Labs done after appointment reveal FT4 improved to 0.7, TSH <0.01. PLAN: Decrease methimazole from 30 mg daily to 15 mg daily ( 1 and 1/2 tablets of 10 mg methimazole daily). Recheck in 6 weeks. Will call grandparents to advise of dose reduction. Electronically signed by Cindy Nieto MD 02/26/20 2:58 PM documented in this encounter* Mahnaz Robins RN - 10/30/2019 5:06 PM EDT 1610 Behavior controlled. Dressed in casual attire. Eye contact maintained. Denied having thoughts of wanting to harm self or others. Denied having hallucinations. [address]35 Dr. Nieto visiting. 1750 Discharged ambulatory, wearing face mask, from B33C, to grandfather. Discharge instructions reviewed. Verbalized understanding of same. Received personal belongings. * Emerita Vidal MSW LISW-S - 10/30/2019 4:13 PM EDT Probate hearing for patient was this morning at 9 AM. Patient found to need to be at [facility] until Dr. Goldman deems he is ready for discharge and patient court ordered to followin [facility] through court and [facility]. Per Dr. Goldman patient was ready to discharge as grandfather confirmed in hearing patient was able to return to his home and patient is agreeable to this is to stay compliant with his medication. Patient to follow up with [facility] and copy of BH Day of Discharge Bundle faxed to agency through [facility]. No further social media designer needs identified at this time. Case closed. * Re Arriaga CTRS - 10/30/2019 1:15 PM EDT 1315 - 1400 Recreation Therapy: Pt agreed to attend group this afternoon and learned the board gameof Sequence. His ability to play was fair, however, he was preoccupied and needing prompts as to when it was his turn. His behavior controlled and receptive to feedback. * Chantelle Spence RN - 10/30/2019 9:22 AM EDT 0900 Pt is resting quietly in bed. He is slow to respond, at times appears to intentionally ignore what this nurse says. He does not make eye contact and gives minimal response to questions when asked. Reminded about his probate hearing today. Is that today? Can you tell me when it's time? Encouraged him to get up and get ready, he voices that he showered this morning already. Compliant with medication. Checked for pill taking. Denies needs or concerns at this time. 1435 Pt is ambulating about the unit. Eager to be discharged. Perez Decker LPN called lab to inquire on the satus of manufacturing lab technician to do T4 draw. Lab reported to Perez Decker LPN that pt had refused the draw sothey discontinued the order. Notified Dr Goldman of the delay then notified Dr Nieto for need of new lab order, new order for free t4 placed by Dr Nieto. Pt informed of updates and that lab would becoming for the draw soon. Verbalizes understanding. * Re Arriaga CTRS - 10/30/2019 9:05 AM EDT Goal/Warm-Up: Pt unavailable this morning due to probate hearing. * Cindy Nieto MD - 10/30/2019 8:50 AM EDT CONSULT NOTE Patient Name: Aba Carlton Admit Date: 10/19/2019 MR #: [id number] : 2000 Physicians: Physician No (Family); Mariam Santamaria CNP (Referring) Assessment and Plan: ASSESSMENT: Hyperthyroidism: Patient with hx of hyperthyroidism noted on TFTs since at least 03/03,admitted for treatment of schizophrenia. He has multiple symptoms of hyperthyroidism. Differential Dx includes Graves' disease, Danilo's thyroiditis, viral thyroiditis, toxic MNG; most likely Grave s'vdisease given markedly elevated FT4 and duration of abnormal TFTs. 10/22 TPO + at 278.1; TSI pending . Consistent with Grave's disease with Hashimotos thyroiditis concurrently. Patient's grandmother states that they were not aware of previous hyperthyroid labs. 10/23: Labs reviewed. Free T4 down to 5.1. Patient reports feeling better, less palpitations, tremorand insomnia. Slept 8 hours last night. 10/26: Labs reveiwed, free T4 this AM improved to 2.9. Patient states he is feeling much improved, specifically in regards to his anxiety, tachycardia, and swelling in the throat area. Appetite is stable. 10/27: Labs reviewed. Patient feeling fair. He does not appear extremely anxious currently. He does seem to answer questions appropriately and is asking appropriate questions. 10/28: Labs reviewed. Patient continues on methimazole 20 mg BID. Will be having probate court 10/29. 10/29 Labs reviewed. FT4--2.6; continues to improve. He had probate hearing today. He will need continued follow up with Dr. Nieto office for Graves' disease. PLAN: 10/20 Await TSI and TPO antibody. Start methimazole 20 mg BID and SSKI 5 gtts TID after methimazole given. Will need long-term outpatient follow up. 10/22 continue current methimazole and SSKI--he has missed a few doses. Dr. Nieto spoke with his grandmother who he lives with, and advised her that he will need continued follow up of his hyperthyroidism. She states that she will ensure he has follow up. Check FT4 in AM. Will need to continue SSKI for one week course of Rx, with methimazole 20 mg BID to continue. 10/23: Continue methimazole and SSKI gtts. 10/26: Continue methimazole 20mg BID, SSKI drops as ordered. 10/27: Will discontinue SSKI. Cont. Methimazole. Patient did reveal that he would give permission tospeak with his grandparents regarding his condition, those consent forms were completed with the nurse. 10/28: Continue methimazole. 10/29 discharge on methimazole 4-10 mg tablets equals 40 mg every morning. Recheck TFTs and CBC before follow-up appointment if possible. Follow-up on 12/10/2019 at 11:00 AM Chief Complaint/Reason for Visit: hyperthyroidism History of Present Illness: Aba Carlton is a 19 y.o. y/o male admitted from ER with history of schizophrenia with suicidal thoughts, disorganized thoughts and behavior. He was found to be severely hyperthyroid and consultation was requested. He does report 20 pound weight loss, heat intolerance and tremor. No dysphagia or double vision. He is not able to contribute much to his medical history at this time. Review of previouslabs shows he had evidence of elevated TFTs since at least 03/03. He does not report ever being treated for hyperthyroidism. Lab review: 10/26: Free T4: 2.9; Thyroid stimulating Immunoglobulin: 5.0 (+) 10/23: Free T4: 5.1 10/22 TPO +278.1 10/21/19 Na 141, K 4.1, creat 0.59,AST 29, ALT 56, WBC 8.81, Hgb 12.2, Hct 38.1, Plt 231k, TSH <0.01, FT4>8.0, FT3-24.5 05/14/18 TSH<0.01, FT4--4.73 03/06/18 TSH <0.01, FT4--3.49 History: Past Medical History: Diagnosis Date ADHD Hyperthyroidism 10/20/2019 Schizo affective schizophrenia (HCC) Schizoaffective disorder (HCC) 10/20/2019 History reviewed. No pertinent surgical history. Family History Family history unknown: Yes Social History Socioeconomic History Marital status: Single Spouse name: Not on file Number of children: Not on file Years of education: Not on file Highest education level: Not on file Occupational History Not on file Social Needs Financial resource strain: Not on file Food insecurity Worry: Not on file Inability: Not on file Transportation needs Medical: Not on file Non-medical: Not on file Tobacco Use Smoking status: Current Every Day Smoker Packs/day: 1.00 Years: 5.00 Pack years: 5.00 Smokeless tobacco: Never Used Substance and Sexual Activity Alcohol use: Not Currently Drug use: Yes Types: Amphetamines Comment: Patient states I take adderall Sexual activity: Never Lifestyle Physical activity Days per week: Not on file Minutes per session: Not on file Stress: Not on file Relationships Social connections Talks on phone: Not on file Gets together: Not on file Attends restorationist service: Not on file Active member of club or organization: Not on file Attends meetings of clubs or organizations: Not on file Relationship status: Not on file Other Topics Concern Not on file Social History Narrative Not on file Allergy Information: I have reviewed the patient's allergies. Grass pollen-red top, standard and Mite extract Home Medications: Hospital Medications: Scheduled Meds: benztropine 1 mg Oral BID methIMAzole 20 mg Oral BID nicotine 1 patch Transdermal Daily propranoloL 10 mg Oral Q12H IMER Continuous Infusions: PRN Meds:.aluminum-magnesium hydroxide-simethicone, hydrOXYzine OR hydrOXYzine, ibuprofen, LORazepam OR LORazepam, magnesium hydroxide, traZODone, ziprasidone OR ziprasidone Review of Systems: The following system(s) were reviewed and pertinent findings noted: Review of Systems Constitutional: Negative for appetite change, fatigue and unexpected weight change. HENT: Negative for trouble swallowing and voice change. Eyes: Negative for pain, redness and visual disturbance. Respiratory: Negative for shortness of breath. Cardiovascular: Negative for chest pain and palpitations. Gastrointestinal: Negative for constipation and diarrhea. Endocrine: Positive for heat intolerance. Negative for cold intolerance. Musculoskeletal: Negative for neck pain. Neurological: Positive for tremors. Psychiatric/Behavioral: Positive for behavioral problems, confusion and sleep disturbance. The patient is nervous/anxious. Physical Examination: Vital Signs: BP 104/81 (Patient Position: Sitting) Pulse (!) 116 Temp 98 F (36.7 C) (Oral) Resp (!) 20 Ht 5' 7 Wt 59 kg (130 lb 1.1 oz) SpO2 97% BMI 20.37 kg/m Physical Exam Constitutional: He is oriented to person, place, and time. He appears well- developed and well-nourished. HENT: Head: Normocephalic and atraumatic. No exophthalmos or lid lag Eyes: Pupils are equal, round, and reactive to light. Conjunctivae and EOM are normal. No scleral icterus. Neck: Normal range of motion. Neck supple. Thyromegaly present. Cardiovascular: Normal rate, regular rhythm and normal heart sounds. No murmur heard. Pulmonary/Chest: Effort normal and breath sounds normal. No respiratory distress. He has no wheezes. He has no rales. Abdominal: He exhibits no distension. Musculoskeletal: General: No edema. Lymphadenopathy: He has no cervical adenopathy. Neurological: He is alert and oriented to person, place, and time. No cranial nerve deficit. Skin: Skin is warm. No erythema. Psychiatric: His speech is not tangential. He is not hyperactive (improving). Cognition and memory are not impaired. He does not express inappropriate judgment. He is calmer today and more able to focus Laboratory and Additional Data Reviewed: Laboratory 10/30/19 8:50 AM Transcriptions 10/30/19 8:50 AM No results found for: HGBA1C Glucose (mg/dL) Date Value 10/19/2019 99 Creatinine (mg/dL) Date Value 10/19/2019 0.59 Lab Results Component Value Date CHOL 105 10/19/2019 TRIG 101 10/19/2019 HDL 33 (L) 10/19/2019 LDLCALC 52 10/19/2019 Lab Results Component Value Date TSH <0.01 (L) 10/19/2019 T4, Free Date Value Ref Range Status 10/27/2019 2.9 (H) 0.7 - 1.7 ng/dL Final Lab Results Component Value Date WBC 8.81 10/19/2019 HGB 12.2 (L) 10/19/2019 HCT 38.1 (L) 10/19/2019 MCV 85.8 10/19/2019 PLT 231 10/19/2019 This SmartLink has not been configured with any valid records. This SmartLink has not been configured with any valid records. Thank you for this consultation, we will continue to follow this patient with you. * Elvira Suazo RN - 10/30/2019 12:12 AM EDT 00:00 Patient resting quietly in bed with eyes closed. Respirations even and easy. No voiced complaints at this time. 04:00 Continues to rest quietly in bed with eyes closed. Patient has changed positions in bed several times throughout evening. No voiced complaints at this time. 06:00 Patient slept 8 hours. * Cris Thomson RN - 10/29/2019 5:53 PM EDT 1550 Pt out in lounge watching TV. 1720 Pt is clean and casually dressed. Pt relates that pt is excited to be discharged soon. I'm a little anxious but it's mostly because I just want to go home. Pt rates depression a 0 today. Pt rates anxiety a 5-6 today. Pt denies suicidal or homicidal ideation and self harm thoughts. Pt denies hallucinations. No delusional content noted in conversation. Pt denies any other current needs/complaints. 173 Pt signed for Invega Sustenna. Invega Sustenna administered and pt tolerated well. Pt then back out to lounge to watch TV. Pt denies any other current needs/complaints. 2205 Pt has remained up and about on unit this shift. Pt has remained calm and controlled. Pt med compliant this shift. 2237 Pt frequently wanting food from the kitchen, limits set. Pt in lounge watching TV. * Emerita Vidal MSW LISW-S - 10/29/2019 2:33 PM EDT Spoke with Anton Kristeljany from [facility] who was present to do her evaluation for patient's probate court hearing tomorrow and provided Anton with patient's H&P and medication list. Contacted patient's grandmother to inform her of the hearing and the hope that patient could be placed in the AOT program which could help them with his medication compliance. Asked if she or grandfatherwould like to attend the hearing and she stated grandfather would be there. Told her it was at the [facility] in the probate court tomorrow morning at 9 AM. Contact Gene at the Probate court and left her a message that grandfather, Roland Hughes, would be attending. Also faxed to Gene the H&P and grandfather's information for the hearing tomorrow. environmental services technician continuesto follow. * Lilly Ta CTRS - 10/29/2019 1:00 PM EDT Recreational Therapy: Pt attended group learning new leisure outlet of 10,000 dice, encouraging decision making, risk taking, adding, recognition of plays. Pt was distracted by his own thoughts. Pt engaged in drawing in between turns and needed redirected each time in was his turn. Pt maintained a blank affect. Pt needed max cues despite simplicity of game. * Carey Goldman MD - 10/29/2019 11:32 AM EDT Psychiatry Progress Note Patient Name: Aba Carlton Admit Date: MR #: [id number] : 2000 Perpetual Assessment Aba Carlton is a 19 y.o. male presenting with bizarre behaviors, manic excitement and paranoid and grandiose delusions. Diagnosis & Plan/Recommendations PRINCIPAL DIAGNOSIS: Schizoaffective disorder, bipolar type (HCC) Other * Schizoaffective disorder, bipolar type (HCC) Assessment & Plan Assessment: Aba continues to improve a little every day. Compliant with medications. More reasonable about communicating with his family and about medical follow-up. Grandparents will accept him back into their home. Agrees with plan for probate to AOT tomorrow to prevent deterioration of mental status due to non-compliance and adherence to treatment of thyroid disorder. Plan: Suicide precautions and Unpredictable behavior precautions Continue paliperidone 9mg po. Discuss Invega Sustena PRNs for agitation, anxiety and insomnia Endocrinology following Labs as appropriate Group participation when appropriate/milieu environment Supportive therapy/structured supportive care environmental services technician assessment/linkages/care coordination Aftercare planning once stable Comorbid issues impacting my care plan include thyrotoxicosis. Following for paranoid delusions, agitation, manic excitement Interval History: Aba continues to improve daily as he stays on his medications and as his thyroidbegins to normalize. Complying with unit therapies as well as medications. Denies suicidal and homicidal thinking. Willing to participate in AOT. Review of Systems: Constitutional, cardiac, pulmonary, neurologic, musculoskeletal, GI and systems reveiwed and negative except as noted above Physical Examination: Vital Signs: BP 113/61 Pulse (!) 122 Temp 97.8 F (36.6 C) (Oral) Resp 14 Ht 5' 7 Wt 59 kg (130 lb 1.1oz) SpO2 96% BMI 20.37 kg/m Mental Status Evaluation: General Appearance & Behavior: age appropiate and cooperative Grooming & Hygiene: street clothes Psychomotor Activity: tremor in hands Gait & Station stable gait and ability to rise from bed/chair without assistance Speech: abrupt, fast Flow of Thought: linear and goal directed Thought Associations: Intact Content of Thought: No evidence of SI/HI Mood: fine Affect: blunted Insight: limited Judgment: impulsive Orientation: alert and oriented to person, place, time, and circumstances Memory: intact recent and remote Attention: impaired Concentration: reduced Language: fluent Fund of Knowledge: estimated average intelligence Laboratory and Additional Data Reviewed: Laboratory 10/29/19 11:38 AM Medications 10/29/19 11:38 AM Transcriptions 10/29/19 11:38 AM Treatment options and alternatives reviewed with patient. Risks, benefits, side effects of all psychiatric medications discussed with patient and informed consent obtained. All questions were answered. Carey Goldman MD 10/29/2019 11:32 AM * Leta Cornejo CTRS - 10/29/2019 9:10 AM EDT [id number] Goal Group: Pt brought self to group after receiving medication. PT dressed appropriatelyin street clothes. Affect bright, but pt inappropriate with laughter and socially engaging with others. PT lacks focus and concentration but has improved some in those areas. PT less paranoid and negative towards [place]. PT shared that he will be returning to live with his grandparents and is hopeful to not have to go to probate court. PT was spoke to about the need for him to remain on his medications and pt agreed citing my grandma will make sure that I take it, all the medicine even my blood pressure and thyroid medication. PT was praised for the positive change in attitude towards his care.PT cited that he was feeling great because I am ready to go home and be with my family. Pt set goal for the day of be DC. PT was receptive to fact that may not happen this date but soon. * Fortino Messina CNP - 10/29/2019 9:00 AM EDT CONSULT NOTE Patient Name: Aba Carlton Admit Date: 10/19/2019 MR #: [id number] : 2000 Physicians: Physician No (Family); Mariam Santamaria CNP (Referring) Assessment and Plan: ASSESSMENT: Hyperthyroidism: Patient with hx of hyperthyroidism noted on TFTs since at least 03/03,admitted for treatment of schizophrenia. He has multiple symptoms of hyperthyroidism. Differential Dx includes Graves' disease, Danilo's thyroiditis, viral thyroiditis, toxic MNG; most likely Grave s'vdisease given markedly elevated FT4 and duration of abnormal TFTs. 10/22 TPO + at 278.1; TSI pending . Consistent with Grave's disease with Hashimotos thyroiditis concurrently. Patient's grandmother states that they were not aware of previous hyperthyroid labs. 10/23: Labs reviewed. Free T4 down to 5.1. Patient reports feeling better, less palpitations, tremorand insomnia. Slept 8 hours last night. 10/26: Labs reveiwed, free T4 this AM improved to 2.9. Patient states he is feeling much improved, specifically in regards to his anxiety, tachycardia, and swelling in the throat area. Appetite is stable. 10/27: Labs reviewed. Patient feeling fair. He does not appear extremely anxious currently. He does seem to answer questions appropriately and is asking appropriate questions. 10/28: Labs reviewed. Patient continues on methimazole 20 mg BID. Will be having probate court 10/29. PLAN: 10/20 Await TSI and TPO antibody. Start methimazole 20 mg BID and SSKI 5 gtts TID after methimazole given. Will need long-term outpatient follow up. 10/22 continue current methimazole and SSKI--he has missed a few doses. Dr. Nieto spoke with his grandmother who he lives with, and advised her that he will need continued follow up of his hyperthyroidism. She states that she will ensure he has follow up. Check FT4 in AM. Will need to continue SSKI for one week course of Rx, with methimazole 20 mg BID to continue. 10/23: Continue methimazole and SSKI gtts. 10/26: Continue methimazole 20mg BID, SSKI drops as ordered. 10/27: Will discontinue SSKI. Cont. Methimazole. Patient did reveal that he would give permission tospeak with his grandparents regarding his condition, those consent forms were completed with the nurse. 10/28: Continue methimazole. Chief Complaint/Reason for Visit: hyperthyroidism History of Present Illness: Aba Carlton is a 19 y.o. y/o male admitted from ER with history of schizophrenia with suicidal thoughts, disorganized thoughts and behavior. He was found to be severely hyperthyroid and consultation was requested. He does report 20 pound weight loss, heat intolerance and tremor. No dysphagia or double vision. He is not able to contribute much to his medical history at this time. Review of previouslabs shows he had evidence of elevated TFTs since at least 03/03. He does not report ever being treated for hyperthyroidism. Lab review: 10/26: Free T4: 2.9; Thyroid stimulating hormone: 5.0 (+) 10/23: Free T4: 5.1 10/22 TPO +278.1 10/21/19 Na 141, K 4.1, creat 0.59,AST 29, ALT 56, WBC 8.81, Hgb 12.2, Hct 38.1, Plt 231k, TSH <0.01, FT4>8.0, FT3-24.5 05/14/18 TSH<0.01, FT4--4.73 03/06/18 TSH <0.01, FT4--3.49 History: Past Medical History: Diagnosis Date ADHD Hyperthyroidism 10/20/2019 Schizo affective schizophrenia (HCC) Schizoaffective disorder (HCC) 10/20/2019 History reviewed. No pertinent surgical history. Family History Family history unknown: Yes Social History Socioeconomic History Marital status: Single Spouse name: Not on file Number of children: Not on file Years of education: Not on file Highest education level: Not on file Occupational History Not on file Social Needs Financial resource strain: Not on file Food insecurity Worry: Not on file Inability: Not on file Transportation needs Medical: Not on file Non-medical: Not on file Tobacco Use Smoking status: Current Every Day Smoker Packs/day: 1.00 Years: 5.00 Pack years: 5.00 Smokeless tobacco: Never Used Substance and Sexual Activity Alcohol use: Not Currently Drug use: Yes Types: Amphetamines Comment: Patient states I take adderall Sexual activity: Never Lifestyle Physical activity Days per week: Not on file Minutes per session: Not on file Stress: Not on file Relationships Social connections Talks on phone: Not on file Gets together: Not on file Attends restorationist service: Not on file Active member of club or organization: Not on file Attends meetings of clubs or organizations: Not on file Relationship status: Not on file Other Topics Concern Not on file Social History Narrative Not on file Allergy Information: I have reviewed the patient's allergies. Grass pollen-red top, standard and Mite extract Home Medications: Hospital Medications: Scheduled Meds: benztropine 1 mg Oral BID methIMAzole 20 mg Oral BID nicotine 1 patch Transdermal Daily paliperidone 9 mg Oral QAM propranoloL 10 mg Oral Q12H IMER Continuous Infusions: PRN Meds:.aluminum-magnesium hydroxide-simethicone, hydrOXYzine OR hydrOXYzine, ibuprofen, LORazepam OR LORazepam, magnesium hydroxide, traZODone, ziprasidone OR ziprasidone Review of Systems: The following system(s) were reviewed and pertinent findings noted: Review of Systems Constitutional: Negative for appetite change, fatigue and unexpected weight change. HENT: Negative for trouble swallowing and voice change. Eyes: Negative for pain, redness and visual disturbance. Respiratory: Negative for shortness of breath. Cardiovascular: Negative for chest pain and palpitations. Gastrointestinal: Negative for constipation and diarrhea. Endocrine: Positive for heat intolerance. Negative for cold intolerance. Musculoskeletal: Negative for neck pain. Neurological: Positive for tremors. Psychiatric/Behavioral: Positive for behavioral problems, confusion and sleep disturbance. The patient is nervous/anxious. Physical Examination: Vital Signs: BP 113/61 Pulse (!) 122 Temp 97.8 F (36.6 C) (Oral) Resp 14 Ht 5' 7 Wt 59 kg (130 lb 1.1oz) SpO2 96% BMI 20.37 kg/m Physical Exam Constitutional: He is oriented to person, place, and time. He appears well- developed and well-nourished. HENT: Head: Normocephalic and atraumatic. No exophthalmos or lid lag Eyes: Pupils are equal, round, and reactive to light. Conjunctivae and EOM are normal. No scleral icterus. Neck: Normal range of motion. Neck supple. Thyromegaly present. Cardiovascular: Normal rate, regular rhythm and normal heart sounds. No murmur heard. Pulmonary/Chest: Effort normal and breath sounds normal. No respiratory distress. He has no wheezes. He has no rales. Abdominal: He exhibits no distension. Musculoskeletal: General: No edema. Lymphadenopathy: He has no cervical adenopathy. Neurological: He is alert and oriented to person, place, and time. No cranial nerve deficit. Skin: Skin is warm. No erythema. Psychiatric: His speech is not tangential. He is not hyperactive (improving). Cognition and memory are not impaired. He does not express inappropriate judgment. He is calmer today and more able to focus Laboratory and Additional Data Reviewed: Laboratory 10/29/19 9:43 AM Transcriptions 10/29/19 9:43 AM No results found for: HGBA1C Glucose (mg/dL) Date Value 10/19/2019 99 Creatinine (mg/dL) Date Value 10/19/2019 0.59 Lab Results Component Value Date CHOL 105 10/19/2019 TRIG 101 10/19/2019 HDL 33 (L) 10/19/2019 LDLCALC 52 10/19/2019 Lab Results Component Value Date TSH <0.01 (L) 10/19/2019 T4, Free Date Value Ref Range Status 10/27/2019 2.9 (H) 0.7 - 1.7 ng/dL Final Lab Results Component Value Date WBC 8.81 10/19/2019 HGB 12.2 (L) 10/19/2019 HCT 38.1 (L) 10/19/2019 MCV 85.8 10/19/2019 PLT 231 10/19/2019 This SmartLink has not been configured with any valid records. This SmartLink has not been configured with any valid records. Thank you for this consultation, we will continue to follow this patient with you. Electronically Signed by: Fortino Messina CNP 10/29/19 9:44 AM * Elisha Veloz RN - 10/29/2019 7:30 AM EDT 0730 Patient resting in bed at this time. 0830 Patient sitting on side of bed. Vital signs obtained. Calm and cooperative. Alert and orientedx4. Facial tics observed. Flat. Denies anxiety and depression denies SI or any intent to self harm.Denies pain Denies AH or VH. Reports he is eating good. Sleeping good. Eye contact is good. Encouraged to perform adl's and encouraged to attend groups. 1000 Patient showering at this time 1100 Anton Charles here to see patient. 1130 Patient eating lunch in lounge with peers 1330 Patient attend group * Elvira Suazo RN - 10/29/2019 3:24 AM EDT 00:00 Patient resting quietly in bed with eyes closed. Respirations even and easy. No voiced complaints. 05:00 Patient appears to have slept 6 hours. No voiced complaints. * Anel Weiss LPN - 10/28/2019 4:36 PM EDT 1610- [facility] Approached client. Introduced self to client. Client dressed casually in own clothing. Client appears disheveled with no body odor noted. Client makes poor eye contact and is appropriate in conversation. Client spends much of his time outside of room, in lounge, and interacts appropriately with peers and staff. Client has a good appetite and is independent with ADL's. Client appears labile, calm, and impulsive. Attempted to reinforce education on deep breathing and progressive relaxation. Client needs reinforcement, had difficulty concentrating. Client denied any further needs. Client left sitting in [facility]. 1646- Client sitting in [facility], [facility]. Approached client. Introduced self to client. Identified client by name, , and wristband. Administered medication as per physician order. Client tolerated mediation with a cup of water. No medication noted upon inspection of oral cavity. Client denied any further needs. Client left sitting in [facility], [facility]. 2003- Client at nurse's station asking for snacks. Identified client by name, , and wristband. Reassessed client vital signs as per physician order. Client blood pressure 117/71, consulted with rim fire charger operator and holding medication until blood pressure is reassessed in an hour. Client given multiple snacks and drinks. Client denied SI/HI/AVH/SIB and agreed to contract for safety. Client still bizarre and religiously preoccupied, asking this nurse to print out the beast of the earth pictures fromrevelations. Client stated that he wanted to trace the picture and put it in some of his writings.Client denied depression and anxiety. Client is a little gamey, asking for one snack, then when this nurse brings it out, says he changed his mind and wants something else, then laughs with a peer. Redirected client that this was inappropriate behavior. Gave client his snack and client left sittingin lounge with peer, eating. 2051- Client approached this nurse stating he was having anxiety 01/23 and that my heart is pumping so fast, it's making the cognitive waves recalibrate. Reassessed client blood pressure with a result of 129/81. Checked client chart and saw that he had medication. Offered to client with regular night medication. Client agreed to take it. Administered medication with a cup of water. No medication noted upon inspection of oral cavity. Client denied any further needs at this time. Client left sitting in lounge. * Carey Goldman MD - 10/28/2019 2:59 PM EDT Psychiatry Progress Note Patient Name: Aba Carlton Admit Date: MR #: [id number] : 2000 Perpetual Assessment Aba Carlton is a 19 y.o. male presenting with bizarre behavior, disorganized thinking, manic excitement and paranoid delusions. Diagnosis & Plan/Recommendations PRINCIPAL DIAGNOSIS: Schizoaffective disorder, bipolar type (HCC) Other * Schizoaffective disorder, bipolar type (HCC) Assessment & Plan Assessment: Aba is improving a little every day. Compliant with medications. More reasonable aboutcommunicating with his family and about medical follow-up. Grandparents will accept him back into their home. If improvement holds steady, will cancel probate hearing. Plan: Suicide precautions and Unpredictable behavior precautions Continue paliperidone 9mg po. Discuss Invega Sustena PRNs for agitation, anxiety and insomnia Endocrinology following Labs as appropriate Group participation when appropriate/milieu environment Supportive therapy/structured supportive care environmental services technician assessment/linkages/care coordination Aftercare planning once stable Comorbid issues impacting my care plan include thyrotoxicosis. Following for agitation, irritability, paranoia, disorganized and illogical thinking Interval History: Aba is gradually more cooperative and reasonable. He is still paranoid and irritable, but improving. He now has a plausible discharge plan with discharge to grandparents and local medical follow-up. If he continues to progress, will cancel hearing and discharge tomorrow. Review of Systems: Constitutional, cardiac, pulmonary, neurologic, musculoskeletal, GI and systems reveiwed and negative except as noted above Physical Examination: Vital Signs: BP 126/78 (BP Location: Left arm, Patient Position: Sitting) Pulse 92 Temp 97.8 F (36.6 C) (Oral) Resp 16 Ht 5' 7 Wt 59 kg (130 lb 1.1 oz) SpO2 99% BMI 20.37 kg/m Mental Status Evaluation: General Appearance & Behavior: age appropiate, thin and gaunt and cautious Grooming & Hygiene: hospital gown Psychomotor Activity: tremor in hands and hyperreflexic Gait & Station stable gait and ability to rise from bed/chair without assistance Speech: hyperverbal and rapid Flow of Thought: linear and goal directed Thought Associations: Intact Content of Thought: No evidence of SI/HI and paranoia Mood: fine Affect: suspicious Insight: poor Judgment: limited Orientation: alert and oriented to person, place, time, and circumstances Memory: intact recent and remote Attention: adequate Concentration: reduced Language: fluent Fund of Knowledge: estimated average intelligence Laboratory and Additional Data Reviewed: Laboratory 10/28/19 3:08 PM Medications 10/28/19 3:08 PM Transcriptions 10/28/19 3:08 PM Treatment options and alternatives reviewed with patient. Risks, benefits, side effects of all psychiatric medications discussed with patient and informed consent obtained. All questions were answered. Carey Goldman MD 10/28/2019 2:59 PM * Emerita Vidal, IAN HAIRSPRING ADJUSTER-S - 10/28/2019 2:46 PM EDT Patient was provided copies of his probate patient work and rights of an involuntarily detained person. Patient immediately requested the phone and was speaking with his erisa attorney. Was told by Elisha Veloz RN, that patient had signed an RANDEE for his grandparents again and patient stated to this worker he was planning to discharge to their home. Contacted grandmother, Shruti, and she stated that patient's baseline is that his brain goes 90 miles an hour, he stomps around the house and slams doors, sometimes forgetting and leaving the refrigerator door open. Per grandmother patient is sounding like his typical self when she's talked to him on the phone. Updated her briefly on his thyroid concerns and she assured thsi worker that they would make sure to get patient to medical appointments and take all his medications. She confirmed that patient had lived temporarily at the [facility] for about 3 weeks after a fight with grandfather. Then he came home. Per grandmother he has done this at other times in the past. Asked if they had considered guardianship for patient to which grandmother replied they had not but she will talk with grandfather about that. Updated Dr. Goldman on above. environmental services technician continues to follow. * Lilly Ta CTRS - 10/28/2019 1:00 PM EDT Recreational Therapy: Pt attended group learning new leisure outlet of opvizor, requiring sequencing, card recognition and some strategizing. Pt's mannerisms were bizarre in nature and he was watchful of peers. Pt engaged in conversations that were nonsensical at times. Pt needed assistance with play recognition for the first 2 games and was more independent by the third game. * Fabienne Bautista CNP - 10/28/2019 9:29 AM EDT CONSULT NOTE Patient Name: Aba Carlton Admit Date: 10/19/2019 MR #: [id number] : 2000 Physicians: Physician No (Family); Mariam Santamaria CNP (Referring) Assessment and Plan: ASSESSMENT: Hyperthyroidism: Patient with hx of hyperthyroidism noted on TFTs since at least 03/03,admitted for treatment of schizophrenia. He has multiple symptoms of hyperthyroidism. Differential Dx includes Graves' disease, Danilo's thyroiditis, viral thyroiditis, toxic MNG; most likely Grave s'vdisease given markedly elevated FT4 and duration of abnormal TFTs. 10/22 TPO + at 278.1; TSI pending . Consistent with Grave's disease with Hashimotos thyroiditis concurrently. Patient's grandmother states that they were not aware of previous hyperthyroid labs. 10/23: Labs reviewed. Free T4 down to 5.1. Patient reports feeling better, less palpitations, tremorand insomnia. Slept 8 hours last night. 10/26: Labs reveiwed, free T4 this AM improved to 2.9. Patient states he is feeling much improved, specifically in regards to his anxiety, tachycardia, and swelling in the throat area. Appetite is stable. 10/27: Labs reviewed. Patient feeling fair. He does not appear extremely anxious currently. He does seem to answer questions appropriately and is asking appropriate questions. PLAN: 10/20 Await TSI and TPO antibody. Start methimazole 20 mg BID and SSKI 5 gtts TID after methimazole given. Will need long-term outpatient follow up. 10/22 continue current methimazole and SSKI--he has missed a few doses. Dr. Nieto spoke with his grandmother who he lives with, and advised her that he will need continued follow up of his hyperthyroidism. She states that she will ensure he has follow up. Check FT4 in AM. Will need to continue SSKI for one week course of Rx, with methimazole 20 mg BID to continue. 10/23: Continue methimazole and SSKI gtts. 10/26: Continue methimazole 20mg BID, SSKI drops as ordered. 10/27: Will discontinue SSKI. Cont. Methimazole. Patient did reveal that he would give permission tospeak with his grandparents regarding his condition, those consent forms were completed with the nurse. Chief Complaint/Reason for Visit: hyperthyroidism History of Present Illness: Aba Carlton is a 19 y.o. y/o male admitted from ER with history of schizophrenia with suicidal thoughts, disorganized thoughts and behavior. He was found to be severely hyperthyroid and consultation was requested. He does report 20 pound weight loss, heat intolerance and tremor. No dysphagia or double vision. He is not able to contribute much to his medical history at this time. Review of previouslabs shows he had evidence of elevated TFTs since at least 03/03. He does not report ever being treated for hyperthyroidism. Lab review: 10/26: Free T4: 2.9; Thyroid stimulating hormone: 5.0 (+) 7/10: Free T4: 5.1 10/22 TPO +278.1 10/21/19 Na 141, K 4.1, creat 0.59,AST 29, ALT 56, WBC 8.81, Hgb 12.2, Hct 38.1, Plt 231k, TSH <0.01, FT4>8.0, FT3-24.5 05/14/18 TSH<0.01, FT4--4.73 03/06/18 TSH <0.01, FT4--3.49 History: Past Medical History: Diagnosis Date ADHD Hyperthyroidism 10/20/2019 Schizo affective schizophrenia (HCC) Schizoaffective disorder (HCC) 10/20/2019 History reviewed. No pertinent surgical history. Family History Family history unknown: Yes Social History Socioeconomic History Marital status: Single Spouse name: Not on file Number of children: Not on file Years of education: Not on file Highest education level: Not on file Occupational History Not on file Social Needs Financial resource strain: Not on file Food insecurity Worry: Not on file Inability: Not on file Transportation needs Medical: Not on file Non-medical: Not on file Tobacco Use Smoking status: Current Every Day Smoker Packs/day: 1.00 Years: 5.00 Pack years: 5.00 Smokeless tobacco: Never Used Substance and Sexual Activity Alcohol use: Not Currently Drug use: Yes Types: Amphetamines Comment: Patient states I take adderall Sexual activity: Never Lifestyle Physical activity Days per week: Not on file Minutes per session: Not on file Stress: Not on file Relationships Social connections Talks on phone: Not on file Gets together: Not on file Attends restorationist service: Not on file Active member of club or organization: Not on file Attends meetings of clubs or organizations: Not on file Relationship status: Not on file Other Topics Concern Not on file Social History Narrative Not on file Allergy Information: I have reviewed the patient's allergies. Grass pollen-red top, standard and Mite extract Home Medications: Hospital Medications: Scheduled Meds: benztropine 1 mg Oral BID methIMAzole 20 mg Oral BID nicotine 1 patch Transdermal Daily paliperidone 9 mg Oral QAM propranoloL 10 mg Oral Q12H IMER Continuous Infusions: PRN Meds:.aluminum-magnesium hydroxide-simethicone, hydrOXYzine OR hydrOXYzine, ibuprofen, LORazepam OR LORazepam, magnesium hydroxide, traZODone, ziprasidone OR ziprasidone Review of Systems: The following system(s) were reviewed and pertinent findings noted: Review of Systems Constitutional: Negative for appetite change, fatigue and unexpected weight change. HENT: Negative for trouble swallowing and voice change. Eyes: Negative for pain, redness and visual disturbance. Respiratory: Negative for shortness of breath. Cardiovascular: Negative for chest pain and palpitations. Gastrointestinal: Negative for constipation and diarrhea. Endocrine: Positive for heat intolerance. Negative for cold intolerance. Musculoskeletal: Negative for neck pain. Neurological: Positive for tremors. Psychiatric/Behavioral: Positive for behavioral problems, confusion and sleep disturbance. The patient is nervous/anxious. Physical Examination: Vital Signs: BP 126/78 (BP Location: Left arm, Patient Position: Sitting) Pulse 92 Temp 97.8 F (36.6 C) (Oral) Resp 16 Ht 5' 7 Wt 59 kg (130 lb 1.1 oz) SpO2 99% BMI 20.37 kg/m Physical Exam Constitutional: He is oriented to person, place, and time. He appears well- developed and well-nourished. HENT: Head: Normocephalic and atraumatic. No exophthalmos or lid lag Eyes: Pupils are equal, round, and reactive to light. Conjunctivae and EOM are normal. No scleral icterus. Neck: Normal range of motion. Neck supple. Thyromegaly present. Cardiovascular: Normal rate, regular rhythm and normal heart sounds. No murmur heard. Pulmonary/Chest: Effort normal and breath sounds normal. No respiratory distress. He has no wheezes. He has no rales. Abdominal: He exhibits no distension. Musculoskeletal: General: No edema. Lymphadenopathy: He has no cervical adenopathy. Neurological: He is alert and oriented to person, place, and time. No cranial nerve deficit. Skin: Skin is warm. No erythema. Psychiatric: His speech is not tangential. He is not hyperactive (improving). Cognition and memory are not impaired. He does not express inappropriate judgment. He is calmer today and more able to focus Laboratory and Additional Data Reviewed: Laboratory 10/28/19 9:29 AM Transcriptions 10/28/19 9:29 AM No results found for: HGBA1C Glucose (mg/dL) Date Value 10/19/2019 99 Creatinine (mg/dL) Date Value 10/19/2019 0.59 Lab Results Component Value Date CHOL 105 10/19/2019 TRIG 101 10/19/2019 HDL 33 (L) 10/19/2019 LDLCALC 52 10/19/2019 Lab Results Component Value Date TSH <0.01 (L) 10/19/2019 T4, Free Date Value Ref Range Status 10/27/2019 2.9 (H) 0.7 - 1.7 ng/dL Final Lab Results Component Value Date WBC 8.81 10/19/2019 HGB 12.2 (L) 10/19/2019 HCT 38.1 (L) 10/19/2019 MCV 85.8 10/19/2019 PLT 231 10/19/2019 This SmartLink has not been configured with any valid records. This SmartLink has not been configured with any valid records. Thank you for this consultation, we will continue to follow this patient with you. Electronically signed by Fabienne MURO 209:29 AM * Re [facility] - 10/28/2019 9:00 AM EDT Goal/Warm UP: Pt declined to attend group until after he had a shower. He arrived near the end of group and did not complete his goal. He stayed for about 10 minutes as we did stretching exercises. He was guarded, watchful and affect blunt. He did not verbalize anything. He left early when another peer came back to the room. * Elisha Veloz RN - 10/28/2019 8:00 AM EDT 0800 Patient sitting in lounge conversing with other patients 0810 Patient in dining room eating breakfast 0850 Patient observed masturbating in his bed in his room during rounds. 0900 Patient presents alert and oriented dressed in street clothes. Disheveled appearance. Flat. Cooperative for assessment. Confirms anxiety 5/10 stating depends on what's going on, I dont want any trouble states I am tired. Eager to go home but im stuck in this box Denies depression 0/10. DeniesSI or any intent to self harm. Denies AH or VH. Reports he is eating well. Reports he is always hungry Reports he is sleeping good. Patient reports he feels he is doing better since coming into the hospital. Stated I still cant focus, I need my adderal Eye contact is poor. Spoke with patient regarding his understanding of the probate process, patient stated no one is to speak to my grandparents I dont' need support, the doctor is only doing this because they tried to stick me with a needle and I told them I would francois began to explain the process but he got agitated and got up out of the bed and walked out of the room. Eye contact is poor. Speech is clear but pressured at time. Encouraged to perform adl's and encouraged to attend all groups. Verbalized understanding. 15 Encouraged patient to go to group and shower afterwards. Refused stating im not going to group smelling like B. O. Patient requesting body soap at this time. 929 Patient showered and joined group independently. 1000 Patient at counter requesting to wash clothes. * Ghulam Garcia, RN - 10/28/2019 12:30 AM EDT 2345 Order and lab work reviewed, patient resting quiet in bed, eyes closed, resp even 0600 Awake once overnight and out of room, walked the halls briefly, staring affect, non questions or requests, then returned to room, appears to have slept approximately 6 hours, interrupted, currently back in bed and asleep * Kathrin Jacinto RN - 10/27/2019 4:34 PM EDT 1534 Ambulating in hallway at this time. 1552 Took afternoon Inderal at this time. 1600 Temp. 97.5 [id number] in hallway as patient stood casually dressed. Behavior is controlled, cooperative, guarded, and watchful. Communicates needs to staff and responds to questions. Mood is depressed, dull, and flat. Thought process is alert and oriented. Patient reports to this mortgage loan underwriter,my appetite is great, and I slept good. Denies any suicidal and homicidal ideations and voices. Rates anxiety 3/10 and deniesdepression at this time. Has been out on unit this shift. Eats meals in dining room. Takes meds without incident. Completed ADLS. Eye contact good with this mortgage loan underwriter and contracts for safety. Much support given to patient as he speaks of having the paper taken away. This w riter advised patient nursing had nothing to do with Probate Court Hearing papers. I just want to be discharged and go to [place]. Patient going to get tray at this time. GOAL: Behave and Discharge. 1640 Eating supper in dining room at this time. 1728 Took evening med without incident at this time. 1835 Took evening K+ at this time without incident. 1930 Sitting in lounge eating snack and watching TV and drawing at this time. 2000 Temp. 97.9 2018 VS 138/81, 84, 98% 2024 Took HSMeds without incident at this time. 0 Eating snacks in lounge at this time. 2129 Given strawberry ice cream at this time. 0 At nursing station pouring Gingerale at this time. Patient has asked for snacks all throughoutthe shift and continues to asked food. 2250 In room in bed resting on right side with eyes closed at this time. * Emerita Vidal MSW HAIRSPRING ADJUSTER-S - 10/27/2019 3:33 PM EDT Patient reviewed with Dr. Goldman and Alina Kumar NP, in treatment team meeting. It was decided thatat this time Dr. Goldman will reject patient's voluntary consent since he is not consistently takingmedication, specifically for his thyroid condition or making good decision for his physical or mental health. At this time he does not wish to return to grandparents' home and has rescinded his release of information for them. He want to go to a homeless jail in [place] where he does not have established mental or physical health services or support to obtain these services. Probate paperwork was faxed to court. Patient updated that Dr. Goldman was submitting the probate paperwork and he was upset about this but explained the reasons above, and asked if he had any question. He stated No. Did receive a message from patient's grandfather requesting a call back regarding possible discharge for patient. Did contact grandfather and left voicemail stating that RANDEE had been rescinded by patient however if he would like to provide the doctor with any information on patient, specifically basel ine behaviors and when he noticed changes to his baseline, and any other information he could provide it to this worker. Provided this worker's contact information. Received call from Gene at court that hearing will be (10/28) at 9 AM. * [facility] - 10/27/2019 1:00 PM EDT 1300 - 1330 Recreation Therapy: Pt participated in playing the card game of Kairos4. He was able to follow along with game rules though would seek clarification of game rules often. Behavior was controlled though detached and preoccupied at times. Benefits were discussed. * Jay Lovell PA-C - 10/27/2019 12:39 PM EDT CONSULT NOTE Patient Name: Aba Carlton Admit Date: 10/19/2019 MR #: [id number] : 2000 Physicians: Physician No (Family); Mariam Santamaria CNP (Referring) Assessment and Plan: ASSESSMENT: Hyperthyroidism: Patient with hx of hyperthyroidism noted on TFTs since at least 03/03,admitted for treatment of schizophrenia. He has multiple symptoms of hyperthyroidism. Differential Dx includes Graves' disease, Danilo's thyroiditis, viral thyroiditis, toxic MNG; most likely Grave s'vdisease given markedly elevated FT4 and duration of abnormal TFTs. 10/22 TPO + at 278.1; TSI pending . Consistent with Grave's disease with Hashimotos thyroiditis concurrently. Patient's grandmother states that they were not aware of previous hyperthyroid labs. 10/23: Labs reviewed. Free T4 down to 5.1. Patient reports feeling better, less palpitations, tremorand insomnia. Slept 8 hours last night. 10/26: Labs reveiwed, free T4 this AM improved to 2.9. Patient states he is feeling much improved, specifically in regards to his anxiety, tachycardia, and swelling in the throat area. Appetite is stable. PLAN: 10/20 Await TSI and TPO antibody. Start methimazole 20 mg BID and SSKI 5 gtts TID after methimazole given. Will need long-term outpatient follow up. 10/22 continue current methimazole and SSKI--he has missed a few doses. Dr. Nieto spoke with his grandmother who he lives with, and advised her that he will need continued follow up of his hyperthyroidism. She states that she will ensure he has follow up. Check FT4 in AM. Will need to continue SSKI for one week course of Rx, with methimazole 20 mg BID to continue. 10/23: Continue methimazole and SSKI gtts. 10/26: Continue methimazole 20mg BID, SSKI drops as ordered. Chief Complaint/Reason for Visit: hyperthyroidism History of Present Illness: Aba Carlton is a 19 y.o. y/o male admitted from ER with history of schizophrenia with suicidal thoughts, disorganized thoughts and behavior. He was found to be severely hyperthyroid and consultation was requested. He does report 20 pound weight loss, heat intolerance and tremor. No dysphagia or double vision. He is not able to contribute much to his medical history at this time. Review of previous labs shows he had evidence of elevated TFTs since at least 03/03. He does not report ever being treated for hyperthyroidism. Lab review: 10/26: Free T4: 2.9; Thyroid stimulating hormone: 5.0 (+) 10/23: Free T4: 5.1 10/22 TPO +278.1 10/21/19 Na 141, K 4.1, creat 0.59,AST 29, ALT 56, WBC 8.81, Hgb 12.2, Hct 38.1, Plt 231k, TSH <0.01, FT4>8.0, FT3-24.5 05/14/18 TSH<0.01, FT4--4.73 03/06/18 TSH <0.01, FT4--3.49 History: Past Medical History: Diagnosis Date ADHD Hyperthyroidism 10/20/2019 Schizo affective schizophrenia (HCC) Schizoaffective disorder (HCC) 10/20/2019 History reviewed. No pertinent surgical history. Family History Family history unknown: Yes Social History Socioeconomic History Marital status: Single Spouse name: Not on file Number of children: Not on file Years of education: Not on file Highest education level: Not on file Occupational History Not on file Social Needs Financial resource strain: Not on file Food insecurity Worry: Not on file Inability: Not on file Transportation needs Medical: Not on file Non-medical: Not on file Tobacco Use Smoking status: Current Every Day Smoker Packs/day: 1.00 Years: 5.00 Pack years: 5.00 Smokeless tobacco: Never Used Substance and Sexual Activity Alcohol use: Not Currently Drug use: Yes Types: Amphetamines Comment: Patient states I take adderall Sexual activity: Never Lifestyle Physical activity Days per week: Not on file Minutes per session: Not on file Stress: Not on file Relationships Social connections Talks on phone: Not on file Gets together: Not on file Attends restorationist service: Not on file Active member of club or organization: Not on file Attends meetings of clubs or organizations: Not on file Relationship status: Not on file Other Topics Concern Not on file Social History Narrative Not on file Allergy Information: I have reviewed the patient's allergies. Grass pollen-red top, standard and Mite extract Home Medications: Hospital Medications: Scheduled Meds: benztropine 1 mg Oral BID methIMAzole 20 mg Oral BID nicotine 1 patch Transdermal Daily paliperidone 9 mg Oral QAM potassium iodide 5 drop Oral TID Continuous Infusions: PRN Meds:.aluminum-magnesium hydroxide-simethicone, hydrOXYzine OR hydrOXYzine, ibuprofen, LORazepam OR LORazepam, magnesium hydroxide, traZODone, ziprasidone OR ziprasidone Review of Systems: The following system(s) were reviewed and pertinent findings noted: Review of Systems Constitutional: Negative for appetite change, fatigue and unexpected weight change. HENT: Negative for trouble swallowing and voice change. Eyes: Negative for pain, redness and visual disturbance. Respiratory: Negative for shortness of breath. Cardiovascular: Negative for chest pain and palpitations. Gastrointestinal: Negative for constipation and diarrhea. Endocrine: Positive for heat intolerance. Negative for cold intolerance. Musculoskeletal: Negative for neck pain. Neurological: Positive for tremors. Psychiatric/Behavioral: Positive for behavioral problems, confusion and sleep disturbance. The patient is nervous/anxious. Physical Examination: Vital Signs: BP 120/80 Pulse (!) 105 Temp 98 F (36.7 C) (Oral) Resp 14 Ht 5' 7 Wt 59 kg (130 lb 1.1 oz) SpO2 95% BMI 20.37 kg/m Physical Exam Constitutional: He is oriented to person, place, and time. He appears well- developed and well-nourished. HENT: Head: Normocephalic and atraumatic. No exophthalmos or lid lag Eyes: Pupils are equal, round, and reactive to light. Conjunctivae and EOM are normal. No scleral icterus. Neck: Normal range of motion. Neck supple. Thyromegaly present. Cardiovascular: Normal rate, regular rhythm and normal heart sounds. No murmur heard. Pulmonary/Chest: Effort normal and breath sounds normal. No respiratory distress. He has no wheezes. He has no rales. Abdominal: He exhibits no distension. Musculoskeletal: General: No edema. Lymphadenopathy: He has no cervical adenopathy. Neurological: He is alert and oriented to person, place, and time. No cranial nerve deficit. Skin: Skin is warm. No erythema. Psychiatric: His speech is tangential. He is hyperactive. Cognition and memory are not impaired. Hedoes not express inappropriate judgment. He is calmer today and more able to focus Laboratory and Additional Data Reviewed: Laboratory 10/27/19 12:39 PM Transcriptions 10/27/19 12:39 PM No results found for: HGBA1C Glucose (mg/dL) Date Value 10/19/2019 99 Creatinine (mg/dL) Date Value 10/19/2019 0.59 Lab Results Component Value Date CHOL 105 10/19/2019 TRIG 101 10/19/2019 HDL 33 (L) 10/19/2019 LDLCALC 52 10/19/2019 Lab Results Component Value Date TSH <0.01 (L) 10/19/2019 T4, Free Date Value Ref Range Status 10/27/2019 2.9 (H) 0.7 - 1.7 ng/dL Final Lab Results Component Value Date WBC 8.81 10/19/2019 HGB 12.2 (L) 10/19/2019 HCT 38.1 (L) 10/19/2019 MCV 85.8 10/19/2019 PLT 231 10/19/2019 This SmartLink has not been configured with any valid records. This SmartLink has not been configured with any valid records. Thank you for this consultation, we will continue to follow this patient with you. Electronically signed by: Jay Lovell PA-C, [facility] 10/27/19 12:42 PM * Carey Goldman MD - 10/27/2019 11:44 AM EDT Psychiatry Progress Note Patient Name: Aba Carlton Admit Date: MR #: [id number] : 2000 Perpetual Assessment Aba Carlton is a 19 y.o. male presenting with bizarre behaviors and paranoid delusions and agitation. Diagnosis & Plan/Recommendations PRINCIPAL DIAGNOSIS: Schizoaffective disorder, bipolar type (HCC) Other * Schizoaffective disorder, bipolar type (HCC) Assessment & Plan Assessment: Aba is requesting to be discharged, wanting to go to [place] to live with a friend. He is asking for a cab to take him there. It is explained that his mind continues racing, his thoughts are not clear at this time, and his thyroid function is showing some improvement, but continues to be elevated (T4). He states, My thyroid is just fine, I am going to francois you. You should not treatme like a horse, trying to lead me around. He continues with delusional thinking, paranoia, pacing, and resistance to medications. With much encouragement from nursing, he has taken his scheduled medications since 10/24/19. He attends group and is inappropriate, as reported by therapist, sitting his chair in the middle of the group and disregarding request to move to appropriate placement. He lacks insight into his mental and physical health, and remains quite paranoid. Rescinded his RANDEE to family. Plan: Suicide precautions and Unpredictable behavior precautions Continue paliperidone 9mg po Discontinue Cogentin 1mg BID. PRNs for agitation, anxiety and insomnia Consult hospitalist/endocrinology for hyperthyroidism (T4 completed 10/26 returned at 2.9, down from10/24 when it was 5.1) Labs as appropriate Group participation when appropriate/milieu environment Supportive therapy/structured supportive care environmental services technician assessment/linkages/care coordination Aftercare planning once stable Comorbid issues impacting my care plan include thyrotoxicosis. Following for paranoid delusions, manic agitation, poor judgment, illogical thinking Interval History: Mr. Carlton is agitated and somewhat demanding today. He actually becomes angry with some benign questions and refuses to discuss his subjective state any more. He seems to have no idea that his mental and physical conditions are serious and is very likely to stop all medications ifhe is discharged now. Review of Systems: Constitutional, cardiac, pulmonary, neurologic, musculoskeletal, GI and systems reveiwed and negative except as noted above Physical Examination: Vital Signs: BP 120/80 Pulse (!) 105 Temp 98 F (36.7 C) (Oral) Resp 14 Ht 5' 7 Wt 59 kg (130 lb 1.1 oz) SpO2 95% BMI 20.37 kg/m Mental Status Evaluation: General Appearance & Behavior: age appropiate, thin and gaunt, defensive, hostile, demanding and poor eye contact Grooming & Hygiene: hospital gown Psychomotor Activity: tremor in hands and hyperreflexic Gait & Station stable gait and ability to rise from bed/chair without assistance Speech: hyperverbal and pressured Flow of Thought: disorganized and perseveration Thought Associations: Intact Content of Thought: No evidence of SI/HI, delusions and paranoia Mood: fine Affect: blunted Insight: poor Judgment: poor Orientation: alert and oriented to person, place, time, and circumstances Memory: intact recent and remote Attention: impaired Concentration: reduced Language: fluent Fund of Knowledge: estimated average intelligence Laboratory and Additional Data Reviewed: Laboratory 10/27/19 11:53 AM Medications 10/27/19 11:53 AM Transcriptions 10/27/19 11:53 AM Treatment options and alternatives reviewed with patient. Risks, benefits, side effects of all psychiatric medications discussed with patient and informed consent obtained. All questions were answered. Carey Goldman MD 10/27/2019 11:44 AM * Kenna Kumar, COMPLAINT INVESTIGATIONS OFFICER - 10/27/2019 11:27 AM EDT Psychiatry Progress Note Patient Name: Aba Carlton Admit Date: MR #: [id number] : 2000 Perpetual Assessment Aba Carlton is a 19 y.o. male presenting with bizarre behavior and suicidal thoughts with a plan to cut his wrists. Diagnosis & Plan/Recommendations PRINCIPAL DIAGNOSIS: Schizoaffective disorder, bipolar type (HCC) Other * Schizoaffective disorder, bipolar type (HCC) Assessment & Plan Assessment: Aba is requesting to be discharged, wanting to go to [place] to live with a friend. He is asking for a cab to take him there. It is explained that his mind continues racing, his thoughts are not clear at this time, and his thyroid function is showing some improvement, but continues to be elevated (T4). He states, My thyroid is just fine, I am going to francois you. You should not treatme like a horse, trying to lead me around. He continues with delusional thinking, paranoia, pacing, and resistance to medications. With much encouragement from nursing, he has taken his scheduled medications since 10/24/19. He attends group and is inappropriate, as reported by therapist, sitting his chair in the middle of the group and disregarding request to move to appropriate placement. According to nursing, he slept 6.75 hours last night. He continues to ask for snacks throughout the day. Plan: Suicide precautions and Unpredictable behavior precautions Increase paliperidone 9mg po Continue Cogentin 1mg BID. PRNs for agitation, anxiety and insomnia (Hydroxyzine 50mg po last given at 1813 on 10/25) Consult hospitalist/endocrinology for hyperthyroidism (T4 completed 10/26 returned at 2.9, down from10/24 when it was 5.1) Labs as appropriate Group participation when appropriate/milieu environment Supportive therapy/structured supportive care environmental services technician assessment/linkages/care coordination Contact grandparents for corroborating information; he signed RANDEE Aftercare planning once stable Comorbid issues impacting my care plan include hyperthyroidism, abnormal EKG (consulted Hospitalist) and homelessness. Following for suicidal ideation, bizarre behavior, psychosis. Interval History: Aba continues with delusional, paranoid thinking, misinterpreting reality. His sleep is good, he is constantly hungry, requesting snacks and food. He is being following by endocrinology for hyperthyroidism. He attempts to convince you he is not seeing, hearing things, but continues responding to internal stimuli, presenting with blank stares. He reports no SI/HI, no hallucinations. Review of Systems: Constitutional, cardiac, pulmonary, neurologic, musculoskeletal, GI and systems reveiwed and negative except as noted above Physical Examination: Vital Signs: BP 120/80 Pulse (!) 105 Temp 98 F (36.7 C) (Oral) Resp 14 Ht 5' 7 Wt 59 kg (130 lb 1.1 oz) SpO2 95% BMI 20.37 kg/m Mental Status Evaluation: General Appearance & Behavior: age appropiate, thin and gaunt, defensive, hostile and poor eye contact Grooming & Hygiene: neat and clean Psychomotor Activity: no psychomotor abnormalities or muscle atrophy noted Gait & Station stable gait and ability to rise from bed/chair without assistance Speech: pressured Flow of Thought: tangential Thought Associations: Loose Content of Thought: No evidence of SI/HI Mood: frustrated Affect: anxious, depressed and flat Insight: poor Judgment: poor Orientation: alert and oriented to person, place, time, and circumstances Memory: intact recent and remote Attention: adequate Concentration: reduced Language: intact Fund of Knowledge: estimated average intelligence Laboratory and Additional Data Reviewed: Laboratory 10/27/19 11:37 AM Cardiology 10/27/19 11:37 AM Medications 10/27/19 11:37 AM Transcriptions 10/27/19 11:37 AM Treatment options and alternatives reviewed with patient. Risks, benefits, side effects of all psychiatric medications discussed with patient and informed consent obtained. All questions were answered. Kenna Kumar CNP 10/27/2019 11:30 AM * Nick Azevedo RD - 10/27/2019 10:56 AM EDT Nutrition Care Initial Assessment Reason for visit: Dietitian Screen Nutrition Diagnosis: no current nutrition problem Nutrition Intervention: meal rounds Meal and Snacks Nutrition Prescription: Diet: regular Nutrition Goals: PO intake > 75% most meals Start Date:10/27/2019 Expected End Date:11/06/2019 Nutrition Education: No needs at this time Assessment: Pertinent clinical information Past Medical History: Diagnosis Date ADHD Hyperthyroidism 10/20/2019 Schizo affective schizophrenia (HCC) Schizoaffective disorder (HCC) 10/20/2019 Height: 5' 7 Current weight: 59 kg (130 lb 1.1 oz) BMI Body mass index is 20.37 kg/m . Weight hx: Wt Readings from Last 5 Encounters: 10/20/19 59 kg (130 lb 1.1 oz) Current diet order: regular Recent intake: 75%. Current intake Likely meets estimated needs. Difficulty Chewing/Swallowing: No Skin Integrity: Intact GI Function: WNL Physical Appearance: no signs or symptoms of malnutrition Nutrition Focus Physical Exam Type: Visual Labs: No results for input(s): NA, K, BICARB, CL, GLUCOSE, BUN, CREATININE, MG, PHOS in the last 72hours. Scheduled Meds: benztropine 1 mg Oral BID methIMAzole 20 mg Oral BID nicotine 1 patch Transdermal Daily paliperidone 9 mg Oral QAM potassium iodide 5 drop Oral TID Continuous Infusions: Estimated Energy Needs Total Energy Estimated Needs: 2200-2400kcal Method for Estimating Needs: 40kcal/kg Total Protein Estimated Needs: 70gm Method for Estimating Needs: 1.2gm/kg [place] Azevedo MS, JEFFRY, LD Dietitian Office * Leta Cornejo, HAND DEVELOPER - 10/27/2019 9:15 AM EDT [id number] Goal Group: PT out in lounge with peers when approached for group, willing to attend. PT tense, guarded and irritable. Group was provided with RO, to which pt was A&O x3. Pt socially awkward in the group setting, seating self in the middle of group [place] and si[place] and refusing to move, despitethe inappropriateness being pointed out. PT fixated on DC and could not be reasoned with on the subj ect and his current functioning level. PT paranoid about TX on the unit and quick to threaten lawsuits and leaving AMA, despite peers encouraging him to accept help and look at the positives of the unit. Pt cited that he was feeling alright but frustrated with the doctor because I don't think thatI am being treated in the same way that I am putting out. PT was asked to explain self clearer to which it was determined that pt felt he was not being respected. PT set goal for the day of be DC to [facility], because I am a grown man and can do what I want. * Elisha Veloz RN - 10/27/2019 7:52 AM EDT 0750 Patient pacing in the bone way. Restless. Sitting in lounge for seconds before getting up and pacing again. Got his breakfast from kitchen, sat down, ate all his food very fast. Patient ate foodso fast he had it all over the front of his gown. Pt then requesting ice cream. Vital signs obtained. Difficult for patient to sit still for vital signs. Denies pain at this time. 0800Presents to the nurses station, bizarre. Delusional and paranoid. Patient went on a rant about Spores and plants becoming hostile human beings, because a rat ate a plant an a plant grew out of the rat Patient stated these little spores are like needles and when you eat them they take the oxygen from your flesh, you can go into stage four and statge 5 is like mad cow disease, you will basically be locked up 900 Presents disheveled dressed in street clothes. Alert and oriented. Restless. Denies anxiety and denies depression. Patient stated I am at peace with myself, I am in a meditative state Denies SI. Denies AH Vh. Denies pain. Eye contact is good. Patient stares blankly. Flat. Reports he sleeps good Eating good. Speech is clear. Encouraged to perform all adl's and encouraged to attend groups. 0945 Patient in group at this time. 1020 Requesting to see medication packaging for all medications. Agitated at this time d/t Invega dose being adjusted. Patient at refused to take the new dose. Stating I only take 3mg of invega, I want to speak to my doctor Told him I would call the doctor and attempted to pick up worker the phone. Patient then stated you know what just give it to me, ill take the poison, Im taking this against my will ya know Informed him that all medications are his right and showed him the consent forms. Mouth check performed at this time. 1130 eating lunch in lounge. 1200 Patient sitting in lounge conversing with other patients. 1450 Patient approached nurses station. Agitated. Restless. Frustrated. Pressured stating I want you to call [facility] Right now!! Patient given the phone number to homeless [facility] but could not get through. Spoke to his addiction social worker Perez Vidal and he was informed we are petitioning the court to keep you here Patient was furious he stated but remained calm. As he walked away he stated I will francois Informed his it was for his own safety. * Milton Kumar RN - 10/27/2019 12:26 AM EDT 2335 Resting on bed with eyes closed, regular,, unlabored respirations. 0315 Continues to rest on bed with easy respirations. Position changes noted. 0600 Appears to have rested 6.75 hours uninterrupted. * Carlos Chung MD - 10/26/2019 5:38 PM EDT Psychiatry Progress Note Patient Name: Aba Carlton Admit Date: MR #: [id number] : 2000 Perpetual Assessment Aba Carlton is a 19 y.o. male was seen individually, case discussed with nursing staff, medical records were reviewed. Patient was observed staring, mumbling to self, remained preoccupied with restorationist delusional thoughts. He had maintained little better eye contact during evaluation. His thought process remains disorganized. He is in compliance with current medication regimen, no adverse effect noted. Diagnosis & Plan/Recommendations Supportive therapy Group and medication Group therapy, activities therapy PRINCIPAL DIAGNOSIS: Schizoaffective disorder, bipolar type (HCC) Other * Schizoaffective disorder, bipolar type (HCC) Assessment & Plan Assessment: Aba is intrusive into others personal space, asking for snacks and food frequently. Heis delusional and paranoid. He is focused on being constipated and drank prune juice through the night. He hallucinates, responding to internal stimuli, but denies this.He has some jerking in his shoulders, movements of his head, rolling back of his eyes that could be EPS, although upon exam, thereis no muscular stiffness or tightness in neck, jaw, arms, shoulders. He has agreed to taking medications today. He has participated in groups, although distracting to other members. He slept 3 hours last night. Plan: Suicide precautions and Unpredictable behavior precautions Continue paliperidone 6mg po Continue Cogentin 1mg BID. PRNs for agitation, anxiety and insomnia Consult hospitalist/endocrinology for hyperthyroidism Labs as appropriate Group participation when appropriate/milieu environment Supportive therapy/structured supportive care environmental services technician assessment/linkages/care coordination Contact grandparents for corroborating information; he signed RANDEE Aftercare planning once stable Following for: Carey Goldman MD Interval History: Review of Systems: Constitutional:No fever, no weight loss Eyes:No diplopia ENT:No sinus drainage CV:No chest pain. No ankle swelling Resp:No dyspnea. No wheezing GI:No abdominal pain.No abdominal distention :No dysuria Neuro:No headache Integumentary:No skin rash MuscSkel:No arthralgias Endo:No polyuria Heme/lymphatic:No apparent lymphadenopathy Physical Examination: Vital Signs: BP 112/66 Pulse 87 Temp 97.5 F (36.4 C) (Infrared) Resp 13 Ht 5' 7 Wt 59 kg (130 lb 1.1 oz) SpO2 98% BMI 20.37 kg/m Mental Status Evaluation: General Appearance & Behavior: older than stated age and cooperative Grooming & Hygiene: unkempt and street clothes Psychomotor Activity: psychomotor agitation Gait & Station stable gait Speech: soft spoken Flow of Thought: concrete Thought Associations: Loose Content of Thought: auditory hallucinations, delusions and paranoia Mood: anxious Affect: anxious, worried, fearful and depressed Insight: fair Judgment: poor Orientation: alert and oriented to person, place, time, and circumstances Memory: intact recent and remote Attention: adequate Concentration: intact Language: intact Fund of Knowledge: estimated average intelligence Laboratory and Additional Data Reviewed: Laboratory 10/26/19 5:41 PM Microbiology 10/26/19 5:41 PM Pathology 10/26/19 5:41 PM Medications 10/26/19 5:41 PM Transcriptions 10/26/19 5:41 PM Treatment options and alternatives reviewed with patient. Risks, benefits, side effects of all psychiatric medications discussed with patient and informed consent obtained. All questions were answered. Carlos Chung MD 10/26/2019 5:38 PM * Kathrin Jacinto, CRISTAL - 10/26/2019 3:54 PM EDT 1520 Sitting in [place] watching movie with other peers at this time. [address] in patients' room as he stood casually dressed. Behavior is controlled,cooperative, guarded, and watchful. Communicates needs to staff and responds to questions. Mood is depressed, dull, and flat. Thought process is alert and oriented. Patient reports to this mortgage loan underwriter, my appetite is great, and I slept great. Denies any suicidal and homicidal ideations and voices. Denies anxiety and depression at this time. Has been out on unit this shift. Eats meals in dining room.Takes meds without incident. Completed ADLS. Eye contact good with this mortgage loan underwriter and contracts for safety. GOAL: Behave so I can be discharged. 1600 Temp. 97.5 1601 Continues sitting in [place] watching movie at this time. 1635 Supper setting on table at this time. 1655 Patient revoked RANDEE for Sahra and Roland Kropps and was witnessed by Ashley NELSON at this time. 1705 Patient at nursing station stating he wanted a taxi to take him to [address] [place] [address] to [facility] at discharge and told this mortgage loan underwriter to tell Clinical Science Liaison. This mortgage loan underwriter advised would leave message for his Offshore Wind Turbine Technician regarding his request. Patient left the nursing station area at this time. 1730 Patient requesting to see Offshore Wind Turbine Technician Emerita Vidal as soon as her schedule permits on Sunday. Call to her office phone at this time. 1812 PRN Vistaril 50mg for increased anxiety and Ibuprofen 600mg for #6 spine pain per patient request at this time. 1840 Took evening med without incident at this time. 1845 Asking for chocolate pudding and ice cream which were given. 1904 Ate 100% of supper. 1934 Asking for coffee and Denia Mist which was given at this time. Patient has had many snacks this shift. 1954 Patient asking for Denia Mist which was given at this time. 1999 Temp. 98.1 2004 Patient given evening snack at this time. 2014 Patient to nursing station asking for another PB&J and reaching over counter to tray. Was advised by staff those on tray for other patients. Patient walked away. 2019 Patient advising this mortgage loan underwriter there is a bug in his throat and wanted this mortgage loan underwriter to listen with that round thing. This mortgage loan underwriter did listen and heard pulse. Much support given to patient. Patientadvised noone had given handouts on his medications. This mortgage loan underwriter provided handouts on his thyroid medication, Cogentin, and Tapazole. Patient declined meds at this time. 2099 This mortgage loan underwriter reviewed teaching sheets with patient at this time and asked if he had questions. I don't want to take that Geodon. They gave it to me the other day when the guards came up and whenI get out of here I am going to francois you people. This mortgage loan underwriter advised patients needed medications and he was asked to take the tab and at this time declined. 2104 Patient came to door and stated I will take the thyroid medicine and Cogentin, but I don't want that other one. Patient is calmer after reviewing the teaching sheets and he thanked this writerfor the time spent with him. Patient sitting in lounge area watching TV at this time. 2129 Sitting in lounge at this time with other peers 220 Sitting in lounge at this time. 2230 In shower at this time. 2235 At nursing station at this time asking for a shirt. Asked for gown which was given at this time. 224 Asking for chocolate pudding at this time which was given. 2250 Sitting in lounge at this time. 2315 In room in bed resting supine with eyes closed at this time. * Patti Sauceda, HAND DEVELOPER - 10/26/2019 1:00 PM EDT 13:00 - 13:30 Goal Group and Exercise - Pt in the hallway upon approach, asking nursing staff when group was because he wanted to attend. Goal Group Identified Feeling:Great. I'm at peace. Pt Identified Daily Goal: To behave, take all of the pills. Pt stated he wants to do everything he needs to so he can leave. Exercise - Pt was encouraged to follow along to deep breathing exercises and ROM stretches. The benefits of deep breathing and regular exercise were discussed. Pt has been more alert and more attentive. His verbalizations continue to be lose and bizarre at times. His behavior was controlled. * Celia Morfin - 10/26/2019 11:30 AM EDT Patient attended Spirituality group. Showroom Executive Director role introduced and how to contact if follow up is requested. Showroom Executive Director Celia Morfin MDiv [facility] Department [phone] office [phone] pager [phone] on-call pager (after 5pm and weekends) 10/26/19 1000 Clinical Encounter Type Visit Type Non Crisis Non Crisis Visit Group Visited With Patient Visited By Other (comment) (Showroom Executive Director) Visit Length (minutes) 60 * Lora Oropeza RN - 10/26/2019 8:00 AM EDT 0800 pt is sitting in the dining area, controlled. Quiet. Pt is social with his peers. Pt is alert and oriented x3, pt is vague with time. Pt denies hallucinating at this time. Pt's appetite is good.Pt was compliant with the taking of his meds. Pt did contract for safety. Pt agrees to seek out thestaff should he need assistance. Pt agrees to attend his groups, and to set his daily tx related goals for himself. Pt does smile at times. Pt is sneaky at times, and is manipulative at times. Over-all the pt is directable. Pt did his own ADL's this day. Pt agrees to use controlled and polite behaviors, as the pt agrees to having impulsive behaviors. Pt agrees to stop and to think first before he reacts, plus to seek out the staff and to not take matters in to his own hands. The pt voices that he understands. Pt reports that he feels a little better I quess, emotional support was given to the pt. No c/o's. 1030 pt went to group. Controlled. Calm. Watchful at times. Again--emotional support was given to the pt. 1215 Dr. Chung was in to see the pt., see the MD orders. Pt's appetite is good. 1400 pt went to groups, controlled. Pt spoke to his grand-parents on the phone. No c/o's. Again--emotional support was given to the pt. * Milton Kumar RN - 10/26/2019 3:30 AM EDT 2330 Has been spending time in [facility]. Came to the desk to say he had fleas in his bed. This nurse spoke with him about the 311 nurse changing his bed linens, and attempted to reassure him there were no fleas in his bed. Steffanie Mccrary RN, gave the patient Vistaril at 2333. 0030 Resting on bed with eyes closed, regular, unlabored respirations. 0315 Continues to rest with easy respirations. 0600 Appears to have rested 5.5 hours uninterrupted. Continues to rest with easy respirations. * Leopoldo Alvarez RN - 10/25/2019 4:45 PM EDT 1600 Patient sitting in the lounge socializing with others at this time. Special precaution in place, will continue to monitor. 1640 This nurse approached patient in the lounge and introduced self as nurse for this shift. Patient was controlled and maintained good eye contact. This nurse noted patient's slight tremor in the hands while handling dinner. When this nurse inquired about suicidal ideation, patient reported, everything is going according to plan. This nurse inquired what he meant, and patient reported that, I am taking my medications as the doctor prescribed them. I have no thoughts of harming myself or harming others. Patient denied anxiety and depression, rating both as a 0/10. Patient reported that when he is not here, his coping skills are playing video games and changing the world. This nurse inquired how patient changes the world, and patient reported, praying. Patient again denied suicidal and homicidal ideations. Patient contracted for safety. Patient denied pain and reported, my thyroid is taken care of, I'm taking my medications. Patient reported that he is sleeping good and appetite as better than 4 stars. This nurse inquired about further needs, patient denies at this time. This nurse encouraged patient to come to staff with any needs, patient verbalized understanding. 1650 Patient approached nurses station, requested and received ice cream. 1900 Upon rounds, this nurse knocked on patient door. Patient reported, hold on and came to the door. Patient reported that there are fleas in his room. Patient reported, there was a light-skinned [place] dude that came in and dumped fleas all over my bed. This nurse inquired if she could see. Patient reported, Don't get too close. This nurse noted few black specks, appearing to be dust, on sheets. This nurse educated patient that the spots appeared to be dust. Patient insisted they arefleas. This nurse noted that patient was wet on his shirt. This nurse inquired why he was wet. Patient reported that he took a shower. This nurse looked for dirty linens, not located. Patient handed this nurse a single towel, dry, and reported that the towel has fleas on it. This nurse used towels and dried water outside of shower. Patient denies needs at this time. 2102 This nurse prompted patient for medication time. Patient met with this nurse in the dining area. This nurse provided information regarding medications including medication, use, dosage, and sideeffects. This nurse reviewed consents prior to administration, given by patient. Patient reported no questions or concerns about medication. Patient was compliant with administration of medications as ordered. Patient cooperative with mouth check, no medications located. This nurse encouraged patient to come to staff with any needs, questions, or concerns. Patient verbalized understanding. Patient requested and received new bed linens, old linens removed from room by this nurse. 2220 Patient approached nurses station and reported that he needs to order breakfast. Patient reported that he did not have a menu to fill out, provided. 2234 Patient received assistance from JACLYN Pennington with filling out menu. Patient asked for several items for breakfast lunch and dinner. Patient reported that he needs 7 pieces of niuean toast, 3 cheese burgers, and several drinks for each meal. Menu faxed to nutrition. 2244 Patient lying awake in bed. Patient made his bed with sheet over blanket on bed. Patient reported, I always make my bed like this and declined with this nurse inquired if he would like assistance in remaking bed. Patient requested and received additional blanket. When JACLYN Busby returned with additional blanket, patient had remade bed with pillow underneath sheet, remaining bed made appropriately. * Carlos Chung MD - 10/25/2019 3:26 PM EDT Psychiatry Progress Note Patient Name: Aba Carlton Admit Date: MR #: [id number] : 2000 Perpetual Assessment Aba Carlton is a 19 y.o. male was seen individually, case discussed with nursing staff, medical records were reviewed. Patient appeared less tense, anxious, intrusive then before. He was observed lesspreoccupied with somatic complaints of bowel movement. He stated that I am all over the place, when asked to elaborate, patient stated that it is all because of hyperthyroidism. Psychomotor activities appeared in less agitated range. We will continue to monitor medication compliance and behavior. Diagnosis & Plan/Recommendations Supportive therapy Psychopharmacological treatment Group therapy, activities therapy PRINCIPAL DIAGNOSIS: Schizoaffective disorder, bipolar type (HCC) Assessment & plan notes cannot be loaded without a specified hospital service. Comorbid issues impacting my care plan include hyperthyroidism. Following for: Carey Goldman MD Interval History: Review of Systems: Constitutional:No fever, no weight loss Eyes:No diplopia ENT:No sinus drainage CV:No chest pain. No ankle swelling Resp:No dyspnea. No wheezing GI:No abdominal pain.No abdominal distention :No dysuria Neuro:No headache Integumentary:No skin rash MuscSkel:No arthralgias Endo:No polyuria Heme/lymphatic:No apparent lymphadenopathy Allergic/Immunologic:No hives Physical Examination: Vital Signs: BP 127/76 (BP Location: Right arm, Patient Position: Sitting) Pulse (!) 104 Temp 97.7 F (36.5 C) (Oral) Resp 16 Ht 5' 7 Wt 59 kg (130 lb 1.1 oz) SpO2 97% BMI 20.37 kg/m Mental Status Evaluation: General Appearance & Behavior: older than stated age, cooperative and minimally engaged Grooming & Hygiene: street clothes Psychomotor Activity: psychomotor agitation Gait & Station stable gait Speech: pressured Flow of Thought: concrete Thought Associations: Intact Content of Thought: somatically preoccupied Mood: depressed Affect: anxious, worried and labile Insight: fair Judgment: poor Orientation: alert and oriented to person, place, time, and circumstances Memory: intact recent and remote Attention: intact Concentration: intact Language: intact Fund of Knowledge: estimated average intelligence Laboratory and Additional Data Reviewed: Laboratory 10/25/19 3:35 PM Microbiology 10/25/19 3:35 PM Pathology 10/25/19 3:35 PM Medications 10/25/19 3:35 PM Transcriptions 10/25/19 3:35 PM Treatment options and alternatives reviewed with patient. Risks, benefits, side effects of all psychiatric medications discussed with patient and informed consent obtained. All questions were answered. Carlos Chung MD 10/25/2019 3:26 PM * SohailPatti, HAND DEVELOPER - 10/25/2019 12:30 PM EDT 12:30 - 13:00 Recreation Therapy - Pt in his room upon approach and he agreed to attend group. Pt brought himself to group late at 12:40. Group was already engaged in leisure activity Sequence [employer]. Pt voiced he was okay with just watching. He was invited to join in second round of activity but he still declined. Stated he would rather play Monopoly or another game this mortgage loan underwriter was not familiar with. Pt stated the game was about creation and evolution. Pt religiously preoccupied and at times making bizarre statements. Advised peer she would understand the Bible better if she were to read the Bible and [employer] novels at the same time because they were intertwined. Pt was less guarded and less paranoid than previous encounters. * Lora Oropeza RN - 10/25/2019 8:00 AM EDT 0800 pt is sitting in the dining area, controlled. Watchful at times. Short attn span. Directable. Pt was compliant with the taking of his meds. Pt's appetite is good. Pt did contract for safety. Pt agrees to seek out the staff should he need assistance. Pt agrees to attend his groups as assigned. Pt also agrees to set his daily tx related goals for himself. Pt did his own ADL's this day. Pt is social and plays card games with his peers. Pt obsesses., over [place] issues. Pt did talk to his grandfather on the phone. Polite-superficial. Pt says that he feels better, emotional support was givento the pt. 1035 pt sits in the lounge, controlled. watchfyl again--emotional support was given to the pt. 1210 Dr. Chung was in to see the pt., see the MD orders. Pt's appetite is good. 1420 pt did not have visitors this day. Pt did talk to his grandfather on the phone. Pt is in pleasant spirits. Again--emotional support was given to the pt. * Malena Sahu RN - 10/25/2019 12:00 AM EDT 2330: Pt in lounge watching tv. Calm and controlled. Denies any needs at this time. 0015: Pt resting in bed with eyes closed. Respirations even and non labored. 0330: Pt remains resting in bed with eyes closed. Respirations even and non labored. Position changes noted. 0550: Pt up to nurses station requesting soap to take a shower. Pt provided with supplies at this time. 0615: Pt in shower. 0630: Pt in lounge with other peers watching tv. Socially appropriate. Pt appears to have slept approx 5.5 hours uninterrupted. * Carlos Chung MD - 10/24/2019 8:26 PM EDT Psychiatry Progress Note Patient Name: Aba Carlton Admit Date: MR #: [id number] : 2000 Perpetual Assessment Aba Carlton is a 19 y.o. male was seen individually, case discussed with nursing staff, medical records were reviewed. Patient was sitting in day room area chair, soundly sleeping, was poorly groomed.He was later observed staring, mumbling to self, appears to be responding to internal stimuli. He remained preoccupied with his somatic complaint of constipation and had been approaching nursing staff for the same. His thinking remains somewhat disorganized. No evidence of EPS noted. Continue to monitor behavior closely. Will monitor medication compliance. Diagnosis & Plan/Recommendations Supportive therapy Pharmacological intervention Group therapy, activities therapy PRINCIPAL DIAGNOSIS: Schizoaffective disorder, bipolar type (HCC) Assessment & plan notes cannot be loaded without a specified hospital service. Comorbid issues impacting my care plan include hypothyroidism Following for: Carey Goldman MD Interval History: Review of Systems: Constitutional:No fever, no weight loss Eyes:No diplopia ENT:No sinus drainage CV:No chest pain. No ankle swelling Resp:No dyspnea. No wheezing GI:No abdominal pain.No abdominal distention :No dysuria Neuro:No headache Integumentary:No skin rash MuscSkel:No arthralgias Endo:No polyuria Heme/lymphatic:No apparent lymphadenopathy Physical Examination: Vital Signs: BP 106/70 (BP Location: Right arm, Patient Position: Lying) Pulse 94 Temp 98.2 F (36.8 C) Resp 16 Ht 5' 7 Wt 59 kg (130 lb 1.1 oz) SpO2 95% BMI 20.37 kg/m Mental Status Evaluation: General Appearance & Behavior: thin and gaunt and minimally engaged Grooming & Hygiene: unkempt and street clothes Psychomotor Activity: psychomotor retardation Gait & Station stable gait Speech: soft spoken Flow of Thought: concrete Thought Associations: Loose Content of Thought: auditory hallucinations and somatically preoccupied Mood: stressed out Affect: anxious, worried, sad and depressed Insight: poor Judgment: poor Orientation: alert and oriented to person, place, time, and circumstances Memory: intact recent and remote Attention: impaired Concentration: poor Language: intact Fund of Knowledge: estimated average intelligence Laboratory and Additional Data Reviewed: Laboratory 10/24/19 8:33 PM Microbiology 10/24/19 8:33 PM Pathology 10/24/19 8:33 PM Medications 10/24/19 8:33 PM Transcriptions 10/24/19 8:33 PM Treatment options and alternatives reviewed with patient. Risks, benefits, side effects of all psychiatric medications discussed with patient and informed consent obtained. All questions were answered. Carlos Chung MD 10/24/2019 8:26 PM * Emerita Vidal MSW LISW-S - 10/24/2019 3:34 PM EDT Met briefly with patient in [facility] as patient was pacing and walking the hallways. He did not speak much to this worker at this time. He continues to be fixated on when he will discharge and when this worker told him it was up to the doctor patient became agitated and walked away. Patient has follow up with Dr. Dhillon at [facility] which is on AV[facility]. environmental services technician continues to follow. * Malena Sahu RN - 10/24/2019 3:32 PM EDT 1600: Temp 97.2 temporal. 1700: Pt is alert and oriented in hallway. Paranoid and suspicious. Labile. Pressured speech. Maintains good eye contact. Pt is dressed in street clothes. Pt denies SI/HI/AH/VH and contracts safety with this staff. Pt rates anxiety and depression both 0/10. Pt states he slept well but would like to sleep less. Pt reports a good appetite. Pt begins rambling about his bowel disease and how he needs a laxative and prune juice to eliminate all the bad spores in his body. Pt states that he has had 2 BM's today. Pt is easily agitated at this time. Pt agrees to take PRN ativan PO. Encouraged pt to express needs to staff. 1710: Pt given PRN ativan PO at this time. Will continue to monitor. 1741: Pt requests his scheduled nicotine patch at this time. Pt educated to remove and given staff the patch before bedtime. 1810: Pt in lounge watching tv. Calm and controlled at this time. Pt received scheduled medication and took without difficulty. 1929: Pt walking in hallway with peer. Socially appropriate. 1999: Temp 98.2 temporal. 2035: Pt received scheduled medication and took without difficulty. 2199: Pt up to nurses station hyperverbal. Pt requesting printout of chakras and information aboutatoms to keep his mind fresh. Provided pt with requested information at this time. 2249: Pt in lounge watching tv. Calm and controlled. * Patti Sauceda, HAND DEVELOPER - 10/24/2019 1:25 PM EDT 13:25 Recreation Therapy - Pt arrived to group as activity was finishing. Pt was invited to sit with group and watch as card game ended. Pt did sit down at the table but he was lethargic and he dozedoff. Pt had put his head on the table and required direction to leave group at end of session. Pt mumbled I just want to leave. Pt left group room and went to the nurses station. * Fortino Messina CNP - 10/24/2019 9:33 AM EDT CONSULT NOTE Patient Name: Aba Carlton Admit Date: 10/19/2019 MR #: [id number] : 2000 Physicians: Physician No (Family); Mariam Santamaria CNP (Referring) Assessment and Plan: ASSESSMENT: Hyperthyroidism: Patient with hx of hyperthyroidism noted on TFTs since at least 03/03,admitted for treatment of schizophrenia. He has multiple symptoms of hyperthyroidism. Differential Dx includes Graves' disease, Danilo's thyroiditis, viral thyroiditis, toxic MNG; most likely Grave s'vdisease given markedly elevated FT4 and duration of abnormal TFTs. 10/22 TPO + at 278.1; TSI pending . Consistent with Grave's disease with Hashimotos thyroiditis concurrently. Patient's grandmother states that they were not aware of previous hyperthyroid labs. 10/23: Labs reviewed. Free T4 down to 5.1. Patient reports feeling better, less palpitations, tremorand insomnia. Slept 8 hours last night. PLAN: 10/20 Await TSI and TPO antibody. Start methimazole 20 mg BID and SSKI 5 gtts TID after methimazole given. Will need long-term outpatient follow up. 10/22 continue current methimazole and SSKI--he has missed a few doses. Dr. Nieto spoke with his grandmother who he lives with, and advised her that he will need continued follow up of his hyperthyroidism. She states that she will ensure he has follow up. Check FT4 in AM. Will need to continue SSKI for one week course of Rx, with methimazole 20 mg BID to continue. 10/23: Continue methimazole and SSKI gtts. Chief Complaint/Reason for Visit: hyperthyroidism History of Present Illness: Aba Carlton is a 19 y.o. y/o male admitted from ER with history of schizophrenia with suicidal thoughts, disorganized thoughts and behavior. He was found to be severely hyperthyroid and consultation was requested. He does report 20 pound weight loss, heat intolerance and tremor. No dysphagia or double vision. He is not able to contribute much to his medical history at this time. Review of previous labs shows he had evidence of elevated TFTs since at least 03/03. He does not report ever being treated for hyperthyroidism. Lab review: 10/23: Free T4: 5.1 10/22 TPO +278.1 10/21/19 Na 141, K 4.1, creat 0.59,AST 29, ALT 56, WBC 8.81, Hgb 12.2, Hct 38.1, Plt 231k, TSH <0.01, FT4>8.0, FT3-24.5 05/14/18 TSH<0.01, FT4--4.73 03/06/18 TSH <0.01, FT4--3.49 History: Past Medical History: Diagnosis Date ADHD Hyperthyroidism 10/20/2019 Schizo affective schizophrenia (HCC) Schizoaffective disorder (HCC) 10/20/2019 History reviewed. No pertinent surgical history. Family History Family history unknown: Yes Social History Socioeconomic History Marital status: Single Spouse name: Not on file Number of children: Not on file Years of education: Not on file Highest education level: Not on file Occupational History Not on file Social Needs Financial resource strain: Not on file Food insecurity Worry: Not on file Inability: Not on file Transportation needs Medical: Not on file Non-medical: Not on file Tobacco Use Smoking status: Current Every Day Smoker Packs/day: 1.00 Years: 5.00 Pack years: 5.00 Smokeless tobacco: Never Used Substance and Sexual Activity Alcohol use: Not Currently Drug use: Yes Types: Amphetamines Comment: Patient states I take adderall Sexual activity: Never Lifestyle Physical activity Days per week: Not on file Minutes per session: Not on file Stress: Not on file Relationships Social connections Talks on phone: Not on file Gets together: Not on file Attends restorationist service: Not on file Active member of club or organization: Not on file Attends meetings of clubs or organizations: Not on file Relationship status: Not on file Other Topics Concern Not on file Social History Narrative Not on file Allergy Information: I have reviewed the patient's allergies. Grass pollen-red top, standard and Mite extract Home Medications: Hospital Medications: Scheduled Meds: benztropine 1 mg Oral BID methIMAzole 20 mg Oral BID nicotine 1 patch Transdermal Daily paliperidone 6 mg Oral QAM potassium iodide 5 drop Oral TID Continuous Infusions: PRN Meds:.aluminum-magnesium hydroxide-simethicone, hydrOXYzine OR hydrOXYzine, ibuprofen, LORazepam OR LORazepam, magnesium hydroxide, traZODone, ziprasidone OR ziprasidone Review of Systems: The following system(s) were reviewed and pertinent findings noted: Review of Systems Constitutional: Negative for appetite change, fatigue and unexpected weight change. HENT: Negative for trouble swallowing and voice change. Eyes: Negative for pain, redness and visual disturbance. Respiratory: Negative for shortness of breath. Cardiovascular: Negative for chest pain and palpitations. Gastrointestinal: Negative for constipation and diarrhea. Endocrine: Positive for heat intolerance. Negative for cold intolerance. Musculoskeletal: Negative for neck pain. Neurological: Positive for tremors. Psychiatric/Behavioral: Positive for behavioral problems, confusion and sleep disturbance. The patient is nervous/anxious. Physical Examination: Vital Signs: BP 106/70 (BP Location: Right arm, Patient Position: Lying) Pulse 94 Temp 97.5 F (36.4 C) (Infrared) Resp 16 Ht 5' 7 Wt 59 kg (130 lb 1.1 oz) SpO2 95% BMI 20.37 kg/m Physical Exam Constitutional: He is oriented to person, place, and time. He appears well- developed and well-nourished. HENT: Head: Normocephalic and atraumatic. No exophthalmos or lid lag Eyes: Pupils are equal, round, and reactive to light. Conjunctivae and EOM are normal. No scleral icterus. Neck: Normal range of motion. Neck supple. Thyromegaly present. Cardiovascular: Normal rate, regular rhythm and normal heart sounds. No murmur heard. Pulmonary/Chest: Effort normal and breath sounds normal. No respiratory distress. He has no wheezes. He has no rales. Abdominal: He exhibits no distension. Musculoskeletal: General: No edema. Lymphadenopathy: He has no cervical adenopathy. Neurological: He is alert and oriented to person, place, and time. No cranial nerve deficit. Skin: Skin is warm. No erythema. Psychiatric: His speech is tangential. He is hyperactive. Cognition and memory are not impaired. Heexpresses inappropriate judgment. He is calmer today and more able to focus Laboratory and Additional Data Reviewed: Laboratory 10/24/19 11:39 AM Transcriptions 10/24/19 11:39 AM No results found for: HGBA1C Glucose (mg/dL) Date Value 10/19/2019 99 Creatinine (mg/dL) Date Value 10/19/2019 0.59 Lab Results Component Value Date CHOL 105 10/19/2019 TRIG 101 10/19/2019 HDL 33 (L) 10/19/2019 LDLCALC 52 10/19/2019 Lab Results Component Value Date TSH <0.01 (L) 10/19/2019 T4, Free Date Value Ref Range Status 10/24/2019 5.1 (H) 0.7 - 1.7 ng/dL Final Lab Results Component Value Date WBC 8.81 10/19/2019 HGB 12.2 (L) 10/19/2019 HCT 38.1 (L) 10/19/2019 MCV 85.8 10/19/2019 PLT 231 10/19/2019 This SmartLink has not been configured with any valid records. This SmartLink has not been configured with any valid records. Thank you for this consultation, we will continue to follow this patient with you. Fortino Messina CNP * Nick Azevedo RD - 10/24/2019 9:10 AM EDT Nutrition Care Initial Assessment Reason for visit: Dietitian Screen Nutrition Diagnosis: Unintended weight loss related to possible hyperthyroidism as evidenced by weight loss. Nutrition Intervention: meal rounds Meal and Snacks Nutrition Prescription: Diet: regular Nutrition Goals: PO intake > 80% most meals Start Date:10/24/2019 Expected End Date:10/30/2019 Nutrition Education: No needs at this time Assessment: dx includes hyperthyroidism Pertinent clinical information: includes hyperthyroidism Past Medical History: Diagnosis Date ADHD Hyperthyroidism 10/20/2019 Schizo affective schizophrenia (HCC) Schizoaffective disorder (HCC) 10/20/2019 Height: 5' 7 Current weight: 59 kg (130 lb 1.1 oz) BMI Body mass index is 20.37 kg/m . Weight hx: reported weight loss Wt Readings from Last 5 Encounters: 10/20/19 59 kg (130 lb 1.1 oz) Current diet order: regular Recent intake: 75%. Current intake Likely does not meet estimated needs. Patient/family comments: SELECTING MENU Difficulty Chewing/Swallowing: No Skin Integrity: Intact GI Function: WNL Physical Appearance: ANNA Labs: No results for input(s): NA, K, BICARB, CL, GLUCOSE, BUN, CREATININE, MG, PHOS in the last 72hours. Scheduled Meds: benztropine 1 mg Oral BID methIMAzole 20 mg Oral BID nicotine 1 patch Transdermal Daily paliperidone 6 mg Oral QAM potassium iodide 5 drop Oral TID Continuous Infusions: Estimated Energy Needs Total Energy Estimated Needs: 2200-2400kcal Method for Estimating Needs: 40kcal/kg Total Protein Estimated Needs: 70gm Method for Estimating Needs: 1.2gm/kg [place] Azevedo MS, JEFFRY, LD Dietitian Office * Manuel Peralta RN - 10/24/2019 8:35 AM EDT 0730 - at the beginning of the shift the pt found pacing in the lounge 0830 - the pt is able to take scheduled meds with much encouragement and the pt has been anxious suspicious and agitated and is able to take prn atarax and prn ativan with scheduled meds and Pt complains that his bfast not what he ordered and states that he will not eat it and pt does eat 100% and while pt denies hallucinations he appears to be responding to unseen others 0945 - The pt continues to be intrusive with peers and agitated and is pacing in hallway and the ptis able to agree to take prn geodon po and is able to take med without difficulty 1500 - The pt has been in and out of his room and has been better able to participate in conversation in an cogent way although the pt has repeatedly asked if dr will discharge him today and struggles to comprehend that he will remain ip for now * Jennifer Ortiz RN - 10/24/2019 12:14 AM EDT 0000 Pt resting quietly in bed with eyes closed, resp even.15 min checks maintained for pt safety. 0147 Per pt request, pt was given MOM for c/o constipation. Pt returned to bed. 0400 Pt resting quietly in bed with eyes closed, resp even.15 min checks maintained for pt safety. 0630 Pt has rested ~ 8 hrs total tonight. Pt awake several times during the night asking for drinksfrom kitchenette. Pt cont to rest quietly in bed with eyes closed, resp even.15 min checks maintained for pt safety. * Emerita Santamaria CNP - 10/23/2019 5:48 PM EDT [facility] Medicine Inpatient Consult Follow-up 10/23/2019 Emerita Santamaria CNP Patient: Aba Carlton Date of : 2000 (19 y.o.) PCP: Physician No Referring Provider: Carey Goldman MD Consult: Lanette Cordon MD: Hospitalist assistance with medical management Of note, this patient was admitted to [facility] following the declaration of aNational State of Emergency due to the COVID-19 pandemic, as issued by the street railway line installer on 06/27/2019. ASSESSMENT/PLAN: Principal Problem: Schizoaffective disorder, bipolar type (HCC) Active Problems: Hyperthyroidism Hyperthyroidism Assessment & Plan Check T3 free. Consult endocrinology Results from last 7 days Lab Units 10/19/19 2251 GLUCOSE mg/dL 99 10/22 Dr. Nieto is treating patient for severe hyperthyroidism. He remains Confused, bizarre and states that his blood is fine. Needs encouragement to take his medications. Fixated on leaving and asking if he has been behaving. He talks about going back to his grandfather's house, then going to [place]. Recommend he stays in the hospital long enough to stablize his thyroid. Family needs education in assisting him to follow up for treatment. SUBJECTIVE: History Since Last Visit: slight improvement Pending Lab and Radiology Results Order Current Status Thyroid Stimulating Immunoglobulin In process Current Scheduled Meds: benztropine 1 mg Oral BID methIMAzole 20 mg Oral BID nicotine 1 patch Transdermal Daily paliperidone 6 mg Oral QAM potassium iodide 5 drop Oral TID Review of Systems: All other systems reviewed and negative other than HPI OBJECTIVE: Physical Examination: Vital Signs: BP 121/75 Pulse (!) 104 Temp 97.9 F (36.6 C) (Temporal) Resp 16 Ht 5' 7 Wt 59 kg (130 lb1.1 oz) SpO2 98% BMI 20.37 kg/m General Appearance: Alert, well appearing, and in no acute distress. HEENT: Head - Normocephalic, atraumatic. Eyes - AKOSUA bilaterally and EOMI. Ears - normal external appearance, hearing intact. Nose - normal, no erythema. Throat - mucous membranes moist, pharynx without lesions. Neck: Supple, trachea midline. Cardiovascular: S1, S2 normal. No murmurs, rubs, clicks or gallops appreciated. No pedal edema. Respiratory: Lungs clear to auscultation, no wheezes, rales or rhonchi heard. Abdomen: Soft, non-tender, normal bowel sounds, non-distended, no masses or organomegaly appreciated. Neurological: Grossly normal motor and sensory exam. No focal deficits. Musculoskeletal: No joint tenderness, deformity or swelling. Skin: Normal coloration and turgor. No rashes. Psych: Alert, oriented x 3. Normal mood and affect. Laboratory and Additional Data Reviewed: Results/Medications Reviewed 10/23/19 5:48 PM: Results from last 7 days Lab Units 10/19/19 2251 SODIUM mmol/L 141 POTASSIUM mmol/L 4.1 CHLORIDE mmol/L 111* BUN mg/dL 23 CREATININE mg/dL 0.59 GLUCOSE mg/dL 99 CALCIUM mg/dL 8.8 Results from last 7 days Lab Units 10/19/19 2251 WBC K/mcL 8.81 HGB g/dL 12.2* HCT % 38.1* PLT K/mcL 231 Results from last 7 days Lab Units 10/19/19 2251 ALK PHOS U/L 195* BILIRUBIN TOTAL mg/dL 0.5 TOTAL PROTEIN g/dL 6.4 ALTR U/L 56 AST U/L 29 CULTURES: Reviewed 10/23/19 5:48 PM Radiology/Imaging: Reviewed 10/23/19 5:48 PM * Emerita Vidal MSW LISW-S - 10/23/2019 4:24 PM EDT Spoke with patient regarding treatment plan update however patient refused to sign. Asked for [facility] and [facility] numbers. [facility] asked I thought you were going to go back home with grandparents to which patient replied We're working it out. environmental services technician continues to follow. * Kenna Kumar CNP - 10/23/2019 3:55 PM EDT Psychiatry Progress Note Patient Name: Aba Carlton Admit Date: MR #: [id number] : 2000 Perpetual Assessment Aba Carlton is a 19 y.o. male presenting with bizarre behavior and suicidal thoughts with a plan to cut his wrists. He was brought to the ED by [facility]'s [facility]. Diagnosis & Plan/Recommendations PRINCIPAL DIAGNOSIS: Schizoaffective disorder, bipolar type (HCC) Other * Schizoaffective disorder, bipolar type (HCC) Assessment & Plan Assessment: Aba is intrusive into others personal space, asking for snacks and food frequently. Heis delusional and paranoid. He is focused on being constipated and drank prune juice through the night. He hallucinates, responding to internal stimuli, but denies this.He has some jerking in his shoulders, movements of his head, rolling back of his eyes that could be EPS, although upon exam, thereis no muscular stiffness or tightness in neck, jaw, arms, shoulders. He has agreed to taking medications today. He has participated in groups, although distracting to other members. He slept 3 hours last night. Plan: Suicide precautions and Unpredictable behavior precautions Continue paliperidone 6mg po Continue Cogentin 1mg BID. PRNs for agitation, anxiety and insomnia Consult hospitalist/endocrinology for hyperthyroidism Labs as appropriate Group participation when appropriate/milieu environment Supportive therapy/structured supportive care environmental services technician assessment/linkages/care coordination Contact grandparents for corroborating information; he signed RANDEE Aftercare planning once stable Comorbid issues impacting my care plan include hyperthyroidism, abnormal EKG (consulted Hospitalist) and homelessness. Following for suicidal ideation, bizarre behavior, psychosis. Interval History: Aba is able to follow through with conversation better today, stating this morning that he was planning to go home with his grandparents, but then denying this later. He is more controlled in his behavior, playing short games with peers, pacing less on the unit. His sleep was poor last night, getting only 3 hours according to nursing. He is agreeing to taking his medications today. Review of Systems: Constitutional, cardiac, pulmonary, neurologic, musculoskeletal, GI and systems reveiwed and negative except as noted above Physical Examination: Vital Signs: BP 121/75 Pulse (!) 104 Temp 97.9 F (36.6 C) (Oral) Resp 16 Ht 5' 7 Wt 59 kg (130 lb 1.1oz) SpO2 98% BMI 20.37 kg/m Mental Status Evaluation: General Appearance & Behavior: age appropiate, thin and gaunt, defensive and poor eye contact Grooming & Hygiene: poor hygeine and street clothes Psychomotor Activity: psychomotor agitation and twitching Gait & Station stable gait and ability to rise from bed/chair without assistance Speech: hyperverbal, pressured and rambling Flow of Thought: tangential and disorganized Thought Associations: Loose Content of Thought: No evidence of SI/HI Mood: depressed Affect: mood congruent Insight: poor Judgment: poor Orientation: alert and oriented to person, place, time, and circumstances Memory: intact recent and remote Attention: impaired Concentration: impaired Language: intact Fund of Knowledge: estimated average intelligence Laboratory and Additional Data Reviewed: Laboratory 10/23/19 3:59 PM Medications 10/23/19 3:59 PM Transcriptions 10/23/19 3:59 PM Treatment options and alternatives reviewed with patient. Risks, benefits, side effects of all psychiatric medications discussed with patient and informed consent obtained. All questions were answered. Kenna Kumar CNP 10/23/2019 3:55 PM * Malena Sahu RN - 10/23/2019 3:27 PM EDT 1600: Pt is alert and oriented in dining room. Pt is preoccupied and appears paranoid. Pressured speech. Maintains good eye contact. Labile. Pt is dressed in street clothes. Pt denies SI/HI/AH/VH andcontracts safety with this staff. Pt rates anxiety and depression both 0/10. Pt states he slept well and has a good appetite. Encouraged pt to express needs to staff. Temp 97.9 temporal 1705: Pt paranoid up to nurses station and is preoccupied with his bowel disease and being constipated and spores infecting the food we eat and spreading to other organs. Pt states the last time he had a BM was this morning. Reassured pt. Pt becomes increasingly paranoid with an increased tone o f voice and is rambling and nonsensical at times. Pt agrees to take PRN ativan PO. 1710: Pt given PRN ativan PO at this time. Will continue to monitor. 183: Pt resting in bed awake. Calm and controlled. Pt received scheduled medication and took without difficulty. 2007: Pt in lounge staring, making comments, and disturbing other peers in the lounge. This RN attempted to talk to pt about behavior and pt agreed to stay calm and controlled. [facility] and begins to make comments, stare, and disturb other peers. Pt laughing and rambling and states what, at least I never threatened anyone. Pt then starts rambling about the spores and food again. Security called at this time. 2020: Pt given PRN geodon IM and PRN vistaril IM in left ventrogluteal at this time with security present. Pt tolerated well. 2039: Pt received scheduled medication and took without difficulty. Pt refused to take scheduled tapazole despite this RN's education and encouragement. 2099: Pt resting in bed with eyes closed. Respirations even and non labored. 2249: Pt remains resting in bed with eyes closed at end of this shift. Respirations even and non labored. * Re Arriaga CTRS - 10/23/2019 9:00 AM EDT 899 - 924 Warm-Up: Pt exhibits bizarre smiling and behavior rather oppositional. When asked what his goal was for today started to tell peer (in response to what peer said) in the Bible it says that none of us are good not even God. Pt smirking as he says this as he appeared to be antagonizing of peer who was having difficulty with reality. Pt given firm limits. We then engaged in stretching exercises in which pt made his own bizarre movement. He then states I am doing the opposite of whatyou say. Pt found laughing to himself and responding to internal stimulus when not being antagonist or oppositional. * Manuel Peralta RN - 10/23/2019 8:46 AM EDT 0730 - at the beginning of the shift the pt found pacing in the hallway and the pt is suspicious and paranoid stating that he is constipated and the pt explaining symptoms with bizarre and rambling speech and the pt obsessed with thought of constipation although The pt states that he had moved his bowels this morning 0815 - The pt remains hypermobile and hyper verbal and the pt is able to take prn ativan with his scheduled am medication and with much encouragement pt takes all meds 0900 - The pt found in the hallway and agrees to interaction and the pt reports appetite good and the pt reports sleep good and the pt denies si and the pt denies hi and the pt contracts for safety and the pt denies anxiety and denies depression and the pt denies hallucinations and pt eye contact good and affect bright during interaction 1500 - The pt has continued to be suspicious about medication and anxious to be discharged but the pt has taken all scheduled meds * Cindy Nieto MD - 10/23/2019 8:37 AM EDT CONSULT NOTE Patient Name: Aba Carlton Admit Date: 10/19/2019 MR #: [id number] : 2000 Physicians: Physician No (Family); Mariam Santamaria CNP (Referring) Assessment and Plan: ASSESSMENT: Hyperthyroidism: Patient with hx of hyperthyroidism noted on TFTs since at least 03/03,admitted for treatment of schizophrenia. He has multiple symptoms of hyperthyroidism. Differential Dx includes Graves' disease, Danilo's thyroiditis, viral thyroiditis, toxic MNG; most likely Grave s'vdisease given markedly elevated FT4 and duration of abnormal TFTs. 10/22 TPO + at 278.1; TSI pending . Consistent with Grave's disease with Hashimotos thyroiditis concurrently. Patient's grandmother states that they were not aware of previous hyperthyroid labs. PLAN: 10/20 Await TSI and TPO antibody. Start methimazole 20 mg BID and SSKI 5 gtts TID after methimazole given. Will need long-term outpatient follow up. 10/22 continue current methimazole and SSKI--he has missed a few doses. Dr. Nieto spoke with his grandmother who he lives with, and advised her that he will need continued follow up of his hyperthyroidism. She states that she will ensure he has follow up. Check FT4 in AM. Will need to continue SSKI for one week course of Rx, with methimazole 20 mg BID to continue. Chief Complaint/Reason for Visit: hyperthyroidism History of Present Illness: Aba Carlton is a 19 y.o. y/o male admitted from ER with history of schizophrenia with suicidal thoughts, disorganized thoughts and behavior. He was found to be severely hyperthyroid and consultation was requested. He does report 20 pound weight loss, heat intolerance and tremor. No dysphagia or double vision. He is not able to contribute much to his medical history at this time. Review of previous labs shows he had evidence of elevated TFTs since at least 03/03. He does not report ever being treated for hyperthyroidism. Lab review: 10/22 TPO +278.1 10/21/19 Na 141, K 4.1, creat 0.59,AST 29, ALT 56, WBC 8.81, Hgb 12.2, Hct 38.1, Plt 231k, TSH <0.01, FT4>8.0, FT3-24.5 05/14/18 TSH<0.01, FT4--4.73 03/06/18 TSH <0.01, FT4--3.49 History: Past Medical History: Diagnosis Date ADHD Hyperthyroidism 10/20/2019 Schizo affective schizophrenia (HCC) Schizoaffective disorder (HCC) 10/20/2019 History reviewed. No pertinent surgical history. Family History Family history unknown: Yes Social History Socioeconomic History Marital status: Single Spouse name: Not on file Number of children: Not on file Years of education: Not on file Highest education level: Not on file Occupational History Not on file Social Needs Financial resource strain: Not on file Food insecurity Worry: Not on file Inability: Not on file Transportation needs Medical: Not on file Non-medical: Not on file Tobacco Use Smoking status: Current Every Day Smoker Packs/day: 1.00 Years: 5.00 Pack years: 5.00 Smokeless tobacco: Never Used Substance and Sexual Activity Alcohol use: Not Currently Drug use: Yes Types: Amphetamines Comment: Patient states I take adderall Sexual activity: Never Lifestyle Physical activity Days per week: Not on file Minutes per session: Not on file Stress: Not on file Relationships Social connections Talks on phone: Not on file Gets together: Not on file Attends restorationist service: Not on file Active member of club or organization: Not on file Attends meetings of clubs or organizations: Not on file Relationship status: Not on file Other Topics Concern Not on file Social History Narrative Not on file Allergy Information: I have reviewed the patient's allergies. Grass pollen-red top, standard and Mite extract Home Medications: Hospital Medications: Scheduled Meds: benztropine 1 mg Oral BID methIMAzole 20 mg Oral BID nicotine 1 patch Transdermal Daily paliperidone 6 mg Oral QAM potassium iodide 5 drop Oral Q8H IMER Continuous Infusions: PRN Meds:.aluminum-magnesium hydroxide-simethicone, hydrOXYzine OR hydrOXYzine, ibuprofen, LORazepam OR LORazepam, magnesium hydroxide, traZODone, ziprasidone OR ziprasidone Review of Systems: The following system(s) were reviewed and pertinent findings noted: Review of Systems Constitutional: Negative for appetite change, fatigue and unexpected weight change. HENT: Negative for trouble swallowing and voice change. Eyes: Negative for pain, redness and visual disturbance. Respiratory: Negative for shortness of breath. Cardiovascular: Negative for chest pain and palpitations. Gastrointestinal: Negative for constipation and diarrhea. Endocrine: Positive for heat intolerance. Negative for cold intolerance. Musculoskeletal: Negative for neck pain. Neurological: Positive for tremors. Psychiatric/Behavioral: Positive for behavioral problems, confusion and sleep disturbance. The patient is nervous/anxious. Physical Examination: Vital Signs: BP 121/75 Pulse (!) 104 Temp 97.9 F (36.6 C) (Oral) Resp 16 Ht 5' 7 Wt 59 kg (130 lb 1.1oz) SpO2 98% BMI 20.37 kg/m Physical Exam Constitutional: He is oriented to person, place, and time. He appears well- developed and well-nourished. HENT: Head: Normocephalic and atraumatic. No exophthalmos or lid lag Eyes: Pupils are equal, round, and reactive to light. Conjunctivae and EOM are normal. No scleral icterus. Neck: Normal range of motion. Neck supple. Thyromegaly present. Cardiovascular: Normal rate, regular rhythm and normal heart sounds. No murmur heard. Pulmonary/Chest: Effort normal and breath sounds normal. No respiratory distress. He has no wheezes. He has no rales. Abdominal: He exhibits no distension. Musculoskeletal: General: No edema. Lymphadenopathy: He has no cervical adenopathy. Neurological: He is alert and oriented to person, place, and time. No cranial nerve deficit. Skin: Skin is warm. No erythema. Psychiatric: His speech is tangential. He is hyperactive. Cognition and memory are not impaired. Heexpresses inappropriate judgment. He is calmer today and more able to focus Laboratory and Additional Data Reviewed: Laboratory 10/23/19 8:38 AM Transcriptions 10/23/19 8:38 AM No results found for: HGBA1C Glucose (mg/dL) Date Value 10/19/2019 99 Creatinine (mg/dL) Date Value 10/19/2019 0.59 Lab Results Component Value Date CHOL 105 10/19/2019 TRIG 101 10/19/2019 HDL 33 (L) 10/19/2019 LDLCALC 52 10/19/2019 Lab Results Component Value Date TSH <0.01 (L) 10/19/2019 T4, Free Date Value Ref Range Status 10/19/2019 >8.0 (H) 0.7 - 1.7 ng/dL Final Lab Results Component Value Date WBC 8.81 10/19/2019 HGB 12.2 (L) 10/19/2019 HCT 38.1 (L) 10/19/2019 MCV 85.8 10/19/2019 PLT 231 10/19/2019 This SmartLink has not been configured with any valid records. This SmartLink has not been configured with any valid records. Thank you for this consultation, we will continue to follow this patient with you. Cindy Nieto MD * Milton Kumar RN - 10/23/2019 4:07 AM EDT 0325 This nurse resumed care of the patient. Patient is currently resting on the bed with eyes closed, regular, unlabored respirations. 0420 Patient was provided with hot chocolate per his request. This nurse attempted to speak with the patient about the importance of taking his medication. Patient would not respond to this information, but did say he was cosntipated, and needed something for this. Offered the patient Milk of Magn esia or prune juice, explaining the MOM is a laxative. Also talked with him about the importance ofdrinking water. Patient did drink 2 prune juices. Conversation rambling, nonsensical at times. Patient did come to the desk at one point to say, thank you for caring about me. Told him this nurse does care about him. Support offered. 0600 Appears to have rested 3 hours interrupted. 0610 Nurse talked with him about taking the morning potassium iodide. Patient refused, stating, I don't want organ failure. Went on to ask, is there a botanist here? Asked him to please consider taking the medication, and that it is important for his hyperthyroidism. Patient walked away from this nurse. 0650 Given another cup of prune juice. Nurse strongly encouraged him to take MOM instead, but refused. Also provided with cup of water, but refused to drink it. * Brooklyn Mccrary RN - 10/23/2019 12:26 AM EDT 0015: Patient is currently in room showering. 0100: Patient wandered hallways quietly for a while and then went to bed on his own. 0200: Patient is resting quietly in bed, eyes closed, respirations even and non labored. 0230: Patient woke up, walked up and down hallways quietly. He looks tired. Returned back to bed after a few laps. * Lois Ramirez RN - 10/22/2019 6:48 PM EDT 18:45 spoke to patient's mother at length. Pt has been calling mother asking her to pick him up. Explained to mother that pt signed voluntary and there is no discharge date set yet. Pt told mother hewill be returning to his Grandmother and grandfather's house (Yannick Hughes phone number [phone] or [phone]) Pt has stated he doesn't want staff talking to his grandparents but thisis where he plans to go after leaving here. Mother stated that pt kicked out of [facility] for delusional thinking that someone stole his phone cord and so he took it back. Pt was kicked out for stealing a cord from a peer. Educated mother about pt very low thyroid lab and signs and symptoms of h yperthyroidism. Mother stated they were unaware of him having any thyroid problems. Mother states that pt eats constantly and never gains weight. Pt gets agitated easily. Mother updated on pt behavior today and she is thankful for this conversation. Mother explained that prior to admission pt started walking from [place] on foot and then called the police stating he was suicidal from his cell phone. The grandparents were unaware that he had left or that he had called police. Mother states pt does not like his grandparents to know when he is doing badly with his illness or struggling. Mother reports paranoid, delusional thinking on part of pt. * Brooklyn Mccrary RN - 10/22/2019 5:19 PM EDT 1600: Patient is confused, disoriented. He is asking multiple questions, where am I, How long haveI been sleeping, what time is it, why didn't anyone wake me up? He was reoriented, reminded him hewas awake for lunch, he says he doesn't remember eating lunch today, he is suspicious and paranoid.I had to get in front of him, ask him to slow down and focus on me, and I talked slow, looked him in his eyes, told him where he is and why he is here and that he is safe, asked him to take a deep breath. He listened and demonstrated slow breath, and said okay. 1700: Patient is at nurse station filling out menu with Julio SHEY. He is very confused, slow, indecisive, and changing his mind several times. He asked for multiple apple juices and orange juices, gavehim 3, told him I will give him some fresh water. 1745: Patient is anxious, up to nurse station asking multiple questions, Do I have to tell you where I go when I leave because I'm not going to. I said we would like to know you are going somewhere safe, but you don't have to tell us. He is dialing his cousin on the phone and pacing in the hallway back and forth. This nurse close by to monitor conversation. 1815: Patient is becoming more agitated, tense, pacing, feverishly dialing phone numbers and listening like there is someone on the line but there is no one there. I asked patient to take an ativan to help him with tension and anxiety. He says no, I'm not taking anything that will make me sleep, there is nothing wrong with me. I explained the symptoms I am seeing, he says I have ADHD and have trouble concentrating. He says Let me call my mom and maybe she will talk me into taking it. He talked with his mom and got off the phone, agreed to sign a RANDEE for her so she can talk with staff. Cris BEE explained the RANDEE to him and asked him again if he still wants to sign it, he agreed and signed it. He refused to take the ativan at this time, he says he will remains calm. I returned the ativan at this time. 1914: Patient is in lounge sitting with peer, talking quietly, coloring. 1999: Patient is sitting in lounge having a snack and drink. He has asked for multiple sugar drinksand snacks this shift. Educated patient on healthier snacks and drinks with less sugar and to drinkwater in between. Educated patient that high sugar snacks increase ADHD symptoms. 2100: Patient refused the medication, he is paranoid. I tried to explain his thyroid condition to him and educated him about the medication. He acts suspicious, says he isn't going to take it becausehis blood is low and multiple other excuses that didn't make sense. Patient refused education, refused all medications. He said Go ahead and give me a shot, because I am going to francois you for $10,000for every shot you give me. I told him I don't want to give him an injection, and if he can maintain composure and he will not receive one. He nods and walks away calmly to [facility]. He then stands atthe nurse station window and stares in with wide eyes for a few minutes before sitting down. 0: Patient is currently up to [employer] ranting about a disease of the bowels where he hasspores in his gut that are multiplying and he is at stage 3 which is an increase of gastric acids that are eating his small intestine and causing him constipation. He is going into a rant about the type of bacteria and how it will affect his body and he believes this is going to spread and kill offthe population because it doesn't require oxygen. . He says he had a BM yesterday. He asked Julio KATfor a glove so he can dig out the impaction from the large intestine. He refuses to take medicationfor constipation, refuses prune juice. Educated to drink water to stay hydrated. He says he will talk to the doctor about it in the morning. 2315: Patient is in lounge quietly watching tv. * Emerita Vidal MSW LISW-S - 10/22/2019 4:28 PM EDT Patient reviewed with Alina Kumar NP. Patient was starting to improve some last evening however this morning became agitated and required PRN medication again. Still adamant no one speak with grandparents however is compliant with medication after much talking and coaxing by nursing. Follow up scheduled with [facility]. environmental services technician continues to follow. * Kenna Kumar CNP - 10/22/2019 11:10 AM EDT Psychiatry Progress Note Patient Name: Aba Carlton Admit Date: MR #: [id number] : 2000 Perpetual Assessment Aba Carlton is a 19 y.o. male presenting with bizarre behavior and suicidal thoughts with a plan to cut his wrists. He was brought to the ED by [facility]. Diagnosis & Plan/Recommendations PRINCIPAL DIAGNOSIS: Schizoaffective disorder, bipolar type (HCC) Other * Schizoaffective disorder, bipolar type (HCC) Assessment & Plan Assessment: Aba is intrusive into others personal space, asking for snacks and food frequently. Hestates he is hungry. Although he reports no hallucinations, good mood and no anxiety, he is responding to internal stimuli, smiling, talking, laughing when not engaged with others. He has some jerking in his shoulders, movements of his head, rolling back of his eyes that could be EPS, although uponexam, there is no muscular stiffness or tightness in neck, jaw, arms, shoulders. He refused medications this morning, stating he does not need any more medications, he is ready to go. Plan: Suicide precautions and Unpredictable behavior precautions Continue paliperidone to 6mg po Add Cogentin 1mg BID. PRNs for agitation, anxiety and insomnia Consult hospitalist/endocrinology Labs as appropriate Group participation when appropriate/milieu environment Supportive therapy/structured supportive care environmental services technician assessment/linkages/care coordination Contact grandparents for corroborating information if he signs RANDEE - he continues to refuse to sign Aftercare planning once stable Comorbid issues impacting my care plan include hyperthyroidism, abnormal EKG (consulted Hospitalist) and homelessness. Following for suicidal ideation, bizarre behavior, psychosis. Interval History: Review of Systems: Constitutional, cardiac, pulmonary, neurologic, musculoskeletal, GI and systems reveiwed and negative except as noted above Physical Examination: Vital Signs: BP 117/80 Pulse (!) 114 Temp 97.9 F (36.6 C) Resp 16 Ht 5' 7 Wt 59 kg (130 lb 1.1 oz) SpO2 97% BMI 20.37 kg/m Mental Status Evaluation: General Appearance & Behavior: age appropiate, thin and gaunt, uncooperative, defensive, hostile and good eye contact Grooming & Hygiene: neat and clean Psychomotor Activity: twitching in shoulders, jaws clenching movements Gait & Station stable gait and ability to rise from bed/chair without assistance Speech: hyperverbal, loud, pressured and rambling Flow of Thought: disorganized Thought Associations: Loose Content of Thought: No evidence of SI/HI, auditory hallucinations, visual hallucinations and paranoia Mood: depressed Affect: depressed and flat Insight: poor Judgment: poor Orientation: alert and oriented to person, place, time, and circumstances Memory: impaired Attention: impaired Concentration: reduced Language: intact Fund of Knowledge: estimated average intelligence Laboratory and Additional Data Reviewed: Laboratory 10/22/19 1:18 PM Cardiology 10/22/19 1:18 PM Medications 10/22/19 1:18 PM Transcriptions 10/22/19 1:18 PM Treatment options and alternatives reviewed with patient. Risks, benefits, side effects of all psychiatric medications discussed with patient and informed consent obtained. All questions were answered. Kenna Kumar CNP 10/22/2019 1:13 PM * Paige Wong RN - 10/22/2019 9:38 AM EDT 0800 Pt ate breakfast this morning in [facility]. Pt is preoccupied with getting phone numbers out of his phone. Pt intrusive, needing constant direction this morning. Pt initially refused morning medications. Pt behavior is preoccupied and compulsive. Fleeting eye contact. Disheveled. Dressed in own clothes. Pt becomes agitated quickly. 0820 Pt agreeable to take medications at this time. Pt also given PRN Ativan 1mg PO for increased agitation at this time. Subtle eye rolling and involuntary movements noted while pt retrieved phone numbers from cell phone with staff supervision. 914 Alina Kumar CNP notified of medications given to pt and involuntary movements. New orders received for cogentin. 1015 Pt refusing cogentin. Alina Kumar CNP made aware. Pt raising voice and stepping towards staff,this staff felt threatened and asked pt to step back. Pt directable. Peer was frustrated with pt behavior and raised voice to pt and then pt became more agitated. 1020 Charge Nurse Kassi Oropeza RN called to return to unit and security called for walk through. 1030 Concerns expressed to Garrett Kumar NP of patient experiencing EPS and continuing to refuse cogentin. This staff and COMPLAINT INVESTIGATIONS OFFICER tried to reason with patient. Pt continues to escalate. Refusing oral medications. 1049 Pt medicated with IM Geodon 20 mg and IM cogentin 2mg in left ventrogluteal with x2 security and bedside as well as clinical lead Kassi Tariq RN. 1145 Pt resting in bed. Respirations even and non labored. 1230 [facility]30 Pt resting in bed. Respirations even and non labored. * Lilly Ta, HAND DEVELOPER - 10/22/2019 9:00 AM EDT Goal Group: Pt stated feeling great I am dedicated to what I'm doing I want to be completely independent and not rely on others Pt stated goal to get out and be in sync with my music. AM Warm Up: Pt was provided opportunity to participate in breathing and chair level exercises. Pt appeared to be responding to internal stimuli; facial grimaces, excessive nodding, bizarre body movements, unable to follow exercises or stay on task. * Milton Kumar RN - 10/22/2019 12:47 AM EDT 2340 Up in [facility]. Has a staring affect. Delayed in responses. Observed laughing to self and smiling inappropriately. Encouraged to return to his room and try to sleep. Asks for snacks often. Was provided with cheese sticks, crackers and Denia Mist. Support offered. 2355 Awake, resting on bed. Talked with him about prn medications available, including Ativan for anxiety and trazodone for sleep. Delayed in response, but said he does not feel he needs either medication. 0030 Awake, resting on bed. Again talked with him about taking medication. Patient again asked for a snack and Denia Mist. Nurse provided patient with ice water, and was encouraged to drink plentyof water. Patient talking with this nurse about a movie he saw, but was unable to provide the title. Much of conversation offered is nonsensical. Smiling inappropriately, eyes darting about the room.Patient asked nurse to turn the light off to his room, and said he would try to sleep. Support offered. 0115 Appears to be resting on bed with eyes closed, regular, unlabored respirations. 0205 Message left on green sheet for Dr Goldman asking that prn PO Geodon be ordered (IM is only ordered thus far) per protocol. 0315 Continues to rest on bed with easy respirations. Position changes noted. 0600 Appears to have rested 4.75 hours uninterrupted. Continues to rest on bed with easy respirations. 0620 Awakened to give the potassium iodide. I'm not taking it. Attempted to explain the need for the medication, and that it could be given in liquid. Nope. Encouraged to consider taking it, and that it is ordered for hyperthyroidism. Support offered. 0720 Offered patient the potassium iodide again after explaining the importance of taking same. Also offered him medication for anxiety. I don't need anything for anxiety. Went on to say, I'll only take my prescribed medication. When asked what his prescribed medication is, replied, it's confidential. Told hm the potassium iodide is used to treat hyperthyroidism, and that the thyroid gland controls many functions of the body. Nope, I'm not taking that. Encouraged patient to consider taking the medication. Attempted to offer support. Has been pacing on the unit. Also sits with male peer (room 3308) in the unge. 0730 Refused to sign medication consent form for Cogentin and Ativan. Nope, nope. * Kenna Kumar CNP - 10/21/2019 5:08 PM EDT Psychiatry Progress Note Patient Name: Aba Carlton Admit Date: MR #: [id number] : 2000 Perpetual Assessment Aba Carlton is a 19 y.o. male presenting with bizarre behavior and suicidal thoughts with a plan to cut his wrists. He was brought to the ED by [facility]. Diagnosis & Plan/Recommendations PRINCIPAL DIAGNOSIS: Schizoaffective disorder, bipolar type (HCC) Other * Schizoaffective disorder, bipolar type (HCC) Assessment & Plan Assessment: Aba is resistive to help today, delusional and paranoid. He states he is not hearing or seeing things, but appears to be responding to voices around him at times. He became angry early this morning, stating first that he had spiders in his esophagus and demanding to staff that he needed to have surgery to remove them. Then he began stating that he was going to francois the staff, demanding to leave, stating he was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 antipsychotics as per psychiatry. One-to-one observation. Pending inpatient psych transfer. [facility]. Hyperthyroidism. TSH less than 0.1. Normal free T4. Will get T3 level. Consult endocrinology. Continue methimazole for now. Consider ultrasound thyroid. Continue other home medication. PUD DVT prophylaxis 12-31-2019 patient is awake alert oriented he is talking on the telephone calm cooperative awaiting transfer to [facility] Concerned about smoking Has a one-to-one sitter Endocrinology has evaluated and placed medication orders for discharge Will continue to follow until patient accepted to [facility] 01-01-2020 No changes ; waiting on placement with [facility] stable no changes 01-02-2020 stable no changes waiting on transfer to [facility] ;will be here over the weekend SUBJECTIVE: No new complaint. All other systems reviewed and negative other than noted above. OBJECTIVE: Physical Examination: BP 112/62 Pulse 78 Temp 98 F (36.7 C) (Oral) Resp 15 Ht 5' 7 Wt 67.1 kg (148 lb) SpO2 96% BMI 23.18 kg/m General Appearance: Alert, well appearing, and in no acute distress. HEENT: Head - Normocephalic, atraumatic. Eyes - AKOSUA bilaterally and EOMI. Ears - normal external appearance, hearing intact. Nose - normal, no erythema. Throat - mucous membranes moist, pharynx without lesions. Neck: Supple, trachea midline. Cardiovascular: S1, S2 normal. No murmurs, rubs, clicks or gallops appreciated. No pedal edema. Respiratory: Lungs clear to auscultation, no wheezes, rales or rhonchi heard. Abdomen: Soft, non-tender, normal bowel sounds, non-distended, no masses or organomegaly appreciated. Neurological: Grossly normal motor and sensory exam. No focal deficits. Musculoskeletal: No joint tenderness, deformity or swelling. Skin: Normal coloration and turgor. No rashes. Psych: Alert, oriented x 3. Paranoid. Cooperative to go out and smoke CURRENT MEDICATIONS: divalproex 500 mg Oral BID enoxaparin (LOVENOX) injection 40 mg Subcutaneous Daily methIMAzole 20 mg Oral Daily nicotine 1 patch Transdermal Daily paliperidone 6 mg Oral Daily Results/Medications Reviewed 01/02/20 12:56 PM: Results from last 7 days Lab Units 12/31/19 04512/30/19 0426 12/27/19 0339 SODIUM mmol/L 141 142 142 POTASSIUM mmol/L 3.9 4.2 4.2 CHLORIDE mmol/L 110* 114* 114* BUN mg/dL 12 8 15 CREATININE mg/dL 0.57 0.56 0.58 GLUCOSE mg/dL 92 95 98 CALCIUM mg/dL 8.6 8.2* 8.4 Results from last 7 days Lab Units 12/31/1945612/30/19 0921 12/28/19 0449 WBC K/mcL 10.58 9.33 9.52 HGB g/dL 12.8* 12.3* 12.0* HCT % 39.5* 38.6* 37.4* PLT K/mcL 246 253 249 Results from last 7 days Lab Units 12/31/197 12/26/19 1614 ALK PHOS U/L 204* < > 221* BILIRUBIN TOTAL mg/dL 0.2 < > 0.2 BILIRUBIN DIRECT mg/dL -- -- <0.1 TOTAL PROTEIN g/dL 6.4 < > 7.5 ALTR U/L 25 < > 30 AST U/L 11 < > 28 < > = values in this interval not displayed. CULTURES: Reviewed 12:56 PM IMAGING: Reviewed 12:56 PM * Fabienne Bautista CNP - 01/02/2020 10:25 AM EDT CONSULT NOTE Patient Name: Aba Carlton Admit Date: 12/26/2019 MR #: [id number] : 2000 Physicians: Adrienne Arcos CNP (Family); Brigette Bradshaw CNP (Referring) Assessment and Plan: Graves disease: Patient has been on methimazole 30 mg since discharge from hospital on 12/19 and he has had further improvement in his FT4 to 1.0. He has had extended period of hyperthyroidism, so his TSH will remain suppressed although his T4 is normalized. TSH will gradually become detectable. He will need to continue methimazole, with continued endocrine follow up. PLAN: Decrease methimazole to 20 mg daily. Recommend recheck of TSH and FT4 in 3-4 Weeks. Methimazole dose will need to be gradually decreased to a maintenance dose of 2.5-10 mg daily. 12/29 TSH <0.01, FT4--0.9. Currently on methimazole 20 mg/day. TSH will remain suppressed for several months due to prolonged period of hyperthyroidism. His FT4 is in the normal range, indicating good control of thyroid function. He will need check of TFTs in 2 weeks, and may need methimazole dose adjustment. Elevated CPK: Unclear etiology. ?related to Invega? ?early neuroleptic malignant syndrome? Discussed with Kassi Reyes CNP. Psychiatry has been consulted. 12/29 CPK 294, continues to normalize. Psychiatry has evaluated patient; CPK elevation not thought to be due to his Invega. 12/30: Labs reviewed. Patient's Free T3: 3.0. Patient's Creat: 0.57l; K: 3.9; Na: 141; AST: 11; ALT:25. Currently on methimazole 20 mg daily. Continue current meds. Check TFT's in 2 weeks and 4 weeks. 01/01: CPM, Methimazole 20mg oral daily re: Graves disease. Danilo's thyroiditis: +TPO antibody present. Chief Complaint/Reason for Visit: Elevated CPK History of Present Illness: Aba Carlton is a 19 y.o. y/o male with a history of schizoaffective disorder, bipolar type and Graves' disease. He was initially admitted on October for psychiatric treatment, and was diagnosed with Graves' disease at that time. Review of his previous laboratory testing revealed that he had evidence of hyperthyroidism when thyroid function tests were performed in February,. He was started on methimazole 40 mg daily and SSKI in early October, and his free T4 improved to approximately 2.6 during his admission. He was discharged 10/30/19 on methimazole 40 mg dailybut did not take his methimazole and was readmitted on 11/12/19 with psychiatric symptoms and persistent hyperthyroidism with free T4 increased back up to 6.9. He was again discharged, but readmitted 11/19/19 until 12/20/19 for an extended hospital stay in the behavioral health unit. During that admission, he received methimazole 40 mg daily with gradual improvement in his FT4 to 1.4 on 12/08/19. He was discharged on methimazole 30 mg daily. He has been takinghis methimazole and his FT4 has imrpoved further to 1.0. He denies heat/cold intolerance, chest pain, palpitations, diarrhea or constipation, or tremor. He has regained approximately 8 pounds since starting methimazole. He denies muscle pain or weakness. 12/30 Free T3: 3.0 12/28 TSH <0.01, FT4--0.9 12/26/19 TSH<0.01, FT4--1.0 12/08/19 TSH <0.01, FT4--1.4 11/19/19 TSH <0.01, FT4--3.7 11/12/19: TSH: <0.01; Free T4: 6.9 11/06/19: TSH: <0.01; Free T4: 6.4 10/30/19: Free T4: 2.6 10/27/19: Free T4: 2.9 10/24/19: Free T4: 5.1 10/21/19 Na 141, K 4.1, creat 0.59,AST 29, ALT 56, WBC 8.81, Hgb 12.2, Hct 38.1, Plt 231k, TSH <0.01, FT4>8.0, FT3-24.5 10/19/19: TSI: 5.0; TPO: 278.1 05/14/18 TSH<0.01, FT4--4.73 03/06/18 TSH <0.01, FT4--3.49 History: Past Medical History: Diagnosis Date ADHD Hypertension Hyperthyroidism 10/20/2019 Hyperthyroidism Hyperthyroidism Schizo affective schizophrenia (HCC) Schizoaffective disorder (HCC) 10/20/2019 History reviewed. No pertinent surgical history. Family History Family history unknown: Yes Social History Socioeconomic History Marital status: Single Spouse name: Not on file Number of children: Not on file Years of education: Not on file Highest education level: Not on file Occupational History Not on file Social Needs Financial resource strain: Not on file Food insecurity Worry: Not on file Inability: Not on file Transportation needs Medical: Not on file Non-medical: Not on file Tobacco Use Smoking status: Current Every Day Smoker Packs/day: 1.00 Years: 5.00 Pack years: 5.00 Smokeless tobacco: Never Used Substance and Sexual Activity Alcohol use: Not Currently Drug use: Yes Types: Marijuana Comment: I don't even smoke pot monthly Sexual activity: Not Currently Lifestyle Physical activity Days per week: Not on file Minutes per session: Not on file Stress: Not on file Relationships Social connections Talks on phone: Not on file Gets together: Not on file Attends restorationist service: Not on file Active member of club or organization: Not on file Attends meetings of clubs or organizations: Not on file Relationship status: Not on file Other Topics Concern Not on file Social History Narrative Not on file Allergy Information: I have reviewed the patient's allergies. Grass pollen-red top, standard and Mite extract Home Medications: Outpatient Medications as of 01/02/2020 Medication Sig divalproex (DEPAKOTE ER) 500 MG 24 hr tablet Take 1 (one) tablet (500 mg total) by mouth 2 (two) times a day . methIMAzole (TAPAZOLE) 10 MG tablet Take 3 (three) tablets (30 mg total) by mouth daily . paliperidone (INVEGA) 6 MG 24 hr tablet Take 1 (one) tablet (6 mg total) by mouth daily Start: 12/19/19. methIMAzole (TAPAZOLE) 10 MG tablet Take 2 (two) tablets (20 mg total) by mouth daily Start: 01/01/20. Hospital Medications: Scheduled Meds: divalproex 500 mg Oral BID enoxaparin (LOVENOX) injection 40 mg Subcutaneous Daily methIMAzole 20 mg Oral Daily nicotine 1 patch Transdermal Daily paliperidone 6 mg Oral Daily Continuous Infusions: PRN Meds:. Review of Systems: The following system(s) were reviewed and pertinent findings noted: Review of Systems Constitutional: Negative for appetite change, fatigue and unexpected weight change (regained 8 pounds). HENT: Negative for trouble swallowing and voice change. Eyes: Negative for pain, redness and visual disturbance. Respiratory: Negative for shortness of breath. Cardiovascular: Negative for chest pain and palpitations. Gastrointestinal: Negative for constipation and diarrhea. Endocrine: Negative for cold intolerance and heat intolerance. Musculoskeletal: Negative for neck pain. Neurological: Negative for tremors. Psychiatric/Behavioral: Currently cooperative. 12/25 Na 139, K 4.0, creat 0.96, Ca 9.1, AST 28, ALT 30, WBC 13.00, Hgb 13.8,Hct 42.3, Plt 306k Physical Examination: Vital Signs: BP 112/62 Pulse 78 Temp 98 F (36.7 C) (Oral) Resp 15 Ht 5' 7 Wt 67.1 kg (148 lb) SpO2 96% BMI 23.18 kg/m Physical Exam Constitutional: He is oriented to person, place, and time. He appears well- developed and well-nourished. HENT: Head: Normocephalic and atraumatic. Eyes: Pupils are equal, round, and reactive to light. Conjunctivae and EOM are normal. Neck: Thyromegaly present. Cardiovascular: Normal rate, regular rhythm and normal heart sounds. No murmur heard. Pulmonary/Chest: Effort normal and breath sounds normal. No respiratory distress. He has no wheezes. He has no rales. Abdominal: Soft. Bowel sounds are normal. He exhibits no distension. There is no abdominal tenderness. Musculoskeletal: General: No edema. Lymphadenopathy: He has no cervical adenopathy. Neurological: He is alert and oriented to person, place, and time. No cranial nerve deficit. No tremor Skin: Skin is warm and dry. No erythema. Laboratory and Additional Data Reviewed: Laboratory 01/02/20 10:25 AM Radiology 01/02/20 10:25 AM Medications 01/02/20 10:25 AM Transcriptions 01/02/20 10:25 AM No results found for: HGBA1C Glucose (mg/dL) Date Value 12/31/2019 92 Creatinine (mg/dL) Date Value 12/31/2019 0.57 Lab Results Component Value Date CHOL 105 10/19/2019 TRIG 101 10/19/2019 HDL 33 (L) 10/19/2019 LDLCALC 52 10/19/2019 Lab Results Component Value Date TSH <0.01 (L) 12/29/2019 T4, Free Date Value Ref Range Status 12/29/2019 0.9 0.7 - 1.7 ng/dL Final Lab Results Component Value Date WBC 10.58 12/31/2019 HGB 12.8 (L) 12/31/2019 HCT 39.5 (L) 12/31/2019 MCV 88.4 12/31/2019 PLT 246 12/31/2019 This SmartLink has not been configured with any valid records. This SmartLink has not been configured with any valid records. Thank you for this consultation, we will continue to follow this patient with you. Electronically signed by Fabienne MURO 201:05 PM Fabienne Bautista CNP * Lisa Berger RN - 01/02/2020 8:52 AM EDT Called [facility] at [phone] and asked for [facility] to inquire on admission status. They have him on a waiting list and have no beds today or over the weekend. Reminded he is under court order to go there and he is wanting to leave but has legal guardian so he cannot. They are aware. I will follow up on Sunday with them. Discharge Planning Living Arrangements: Family members Caregiver Identified: No Support Systems: Family members Assistance Needed: no Type of Residence: Private residence Prior to Admission Home Care Services: No Has discharge transport been arranged?: Yes [facility] Disposition D/C Disposition: Psychiatric Hospital Agency/Destination: [facility] * Dilcia Veronica CNP - 01/01/2020 12:59 PM EDT Hospital Medicine Inpatient Follow-up 01/01/2020 Dilcia Veronica CNP [facility] Patient: Aba Carlton Date of : 2000 (19 y.o.) PCP: Adrienne Arcos CNP ASSESSMENT/PLAN: Aba Carlton 19 y.o. male presented with Active Problems: Schizoaffective disorder, bipolar type (HCC) Elevated CPK Spontaneous rhabdomyolysis Dehydration Hyperthyroidism Past Medical History: Diagnosis Date ADHD Hypertension Hyperthyroidism 10/20/2019 Hyperthyroidism Hyperthyroidism Schizo affective schizophrenia (HCC) Schizoaffective disorder (HCC) 10/20/2019 PLAN: Dehydration and spontaneous rhabdomyolysis. Resolved with with IV fluids. Schizoaffective disorders/bipolar. Continue antipsychotics as per psychiatry. One-to-one observation. Pending inpatient psych transfer. [facility]. Hyperthyroidism. TSH less than 0.1. Normal free T4. Will get T3 level. Consult endocrinology. Continue methimazole for now. Consider ultrasound thyroid. Continue other home medication. PUD DVT prophylaxis 12-31-2019 patient is awake alert oriented he is talking on the telephone calm cooperative awaiting transfer to [facility] Concerned about smoking Has a one-to-one sitter Endocrinology has evaluated and placed medication orders for discharge Will continue to follow until patient accepted to [facility] 01-01-2020 No changes ; waiting on placement with [facility] SUBJECTIVE: No new complaint. All other systems reviewed and negative other than noted above. OBJECTIVE: Physical Examination: BP 119/74 Pulse 62 Temp 97.7 F (36.5 C) (Oral) Resp 16 Ht 5' 7 Wt 67.1 kg (148 lb) SpO2 96% BMI 23.18 kg/m General Appearance: Alert, well appearing, and in no acute distress. HEENT: Head - Normocephalic, atraumatic. Eyes - AKOSUA bilaterally and EOMI. Ears - normal external appearance, hearing intact. Nose - normal, no erythema. Throat - mucous membranes moist, pharynx without lesions. Neck: Supple, trachea midline. Cardiovascular: S1, S2 normal. No murmurs, rubs, clicks or gallops appreciated. No pedal edema. Respiratory: Lungs clear to auscultation, no wheezes, rales or rhonchi heard. Abdomen: Soft, non-tender, normal bowel sounds, non-distended, no masses or organomegaly appreciated. Neurological: Grossly normal motor and sensory exam. No focal deficits. Musculoskeletal: No joint tenderness, deformity or swelling. Skin: Normal coloration and turgor. No rashes. Psych: Alert, oriented x 3. Paranoid. Cooperative to go out and smoke CURRENT MEDICATIONS: divalproex 500 mg Oral BID enoxaparin (LOVENOX) injection 40 mg Subcutaneous Daily methIMAzole 20 mg Oral Daily nicotine 1 patch Transdermal Daily paliperidone 6 mg Oral Daily Results/Medications Reviewed 01/01/20 12:59 PM: Results from last 7 days Lab Units 12/31/197 12/30/19 0426 12/27/19 0339 SODIUM mmol/L 141 142 142 POTASSIUM mmol/L 3.9 4.2 4.2 CHLORIDE mmol/L 110* 114* 114* BUN mg/dL 12 8 15 CREATININE mg/dL 0.57 0.56 0.58 GLUCOSE mg/dL 92 95 98 CALCIUM mg/dL 8.6 8.2* 8.4 Results from last 7 days Lab Units 12/31/1945612/30/19 0921 12/28/19 0449 WBC K/mcL 10.58 9.33 9.52 HGB g/dL 12.8* 12.3* 12.0* HCT % 39.5* 38.6* 37.4* PLT K/mcL 246 253 249 Results from last 7 days Lab Units 12/31/19 0457 12/26/19 1614 ALK PHOS U/L 204* < > 221* BILIRUBIN TOTAL mg/dL 0.2 < > 0.2 BILIRUBIN DIRECT mg/dL -- -- <0.1 TOTAL PROTEIN g/dL 6.4 < > 7.5 ALTR U/L 25 < > 30 AST U/L 11 < > 28 < > = values in this interval not displayed. CULTURES: Reviewed 12:59 PM IMAGING: Reviewed 12:59 PM * Maye Oscar RD - 01/01/2020 10:12 AM EDT Nutrition Care Initial Assessment Reason for visit: Dietitian Screen Nutrition Diagnosis: Decreased nutrient needs related to decreased tolerance to dietary sodium AEB hx: HTN. Nutrition Intervention/Prescription: Continue Diet Diet: continue regular. Consider 2gm Na+ diet (note:hospital does not serve an excess of high sodium foods on pt meal trays) Nutrition Goals: PO intake > 75% most meals x next 6 days Nutrition Education: nsg to encourage po Assessment: Admit dx/Pertinent clinical information: Non-traumatic rhabdomyolysis Schizophrenia Elevated CPK Past Medical History: Diagnosis Date ADHD Hypertension Hyperthyroidism 10/20/2019 Hyperthyroidism Hyperthyroidism Schizo affective schizophrenia (HCC) Schizoaffective disorder (HCC) 10/20/2019 Height: 5' 7 Current weight: 67.1 kg (148 lb) BMI Body mass index is 23.18 kg/m . Weight hx: Wt gain per the below records. Wt Readings from Last 5 Encounters: 12/26/19 67.1 kg (148 lb) 11/22/19 63 kg (138 lb 12.8 oz) 11/20/19 61.1 kg (134 lb 9.6 oz) 11/12/19 60.8 kg (134 lb) 11/10/19 62.1 kg (137 lb) Current diet order: Regular (at risk/suicide precautions) Recent intake: 75-100% Current intake meets estimated needs. Patient/family comments: RDN did not call pt's room. Pt has a sitter in the room per [employer]GICAL [employer]MENT [employer]TER note. Difficulty Chewing/Swallowing: No Skin Integrity: Intact GI Function: WNL Physical Appearance: ANNA-RDN working remotely Labs: Recent Labs 12/31/19 0457 NA 141 K 3.9 BICARB 26 CL 110* GLUCOSE 92 BUN 12 CREATININE 0.57 MG 2.0 Scheduled Meds: divalproex 500 mg Oral BID enoxaparin (LOVENOX) injection 40 mg Subcutaneous Daily methIMAzole 20 mg Oral Daily nicotine 1 patch Transdermal Daily paliperidone 6 mg Oral Daily Continuous Infusions: Needs-2000kcals (30kcals/kg) Protein- 67gms (1gm/kg) Will continue to follow. Maye Oscar RDN, LD Dietitian's Office [phone] * Miriam Fuentes LISW - 12/31/2019 4:12 PM EDT DISCHARGE PLAN PROGRESS NOTE Date: 12/31/2019 Time: 4:12 PM Patient Name: Aba Carlton Date of : 2000 Sex: Male Received a voice mail from Karanraul Zhang reporting he is the erisa attorney appointed to represent the patient in his guardianship trial. He is requesting visitation with the patient and requested to be notified at . Information sent to CRISTAL Guy, Gisela pre school manager and Lisa Berger RNwith care management via secure chat. MARTELL Sandoval-Mady [facility] Disposition D/C Disposition: Psychiatric Hospital Agency/Destination: [facility] * Dilcia Veronica CNP - 12/31/2019 1:29 PM EDT [facility] Medicine Inpatient Follow-up 12/31/2019 Dilcia Veronica CNP [facility] Patient: Aba Carlton Date of : 2000 (19 y.o.) PCP: Adrienne Arcos CNP ASSESSMENT/PLAN: Aba Carlton 19 y.o. male presented with Active Problems: Schizoaffective disorder, bipolar type (HCC) Elevated CPK Spontaneous rhabdomyolysis Dehydration Hyperthyroidism Past Medical History: Diagnosis Date ADHD Hypertension Hyperthyroidism 10/20/2019 Hyperthyroidism Hyperthyroidism Schizo affective schizophrenia (HCC) Schizoaffective disorder (HCC) 10/20/2019 PLAN: Dehydration and spontaneous rhabdomyolysis. Resolved with with IV fluids. Schizoaffective disorders/bipolar. Continue antipsychotics as per psychiatry. One-to-one observation. Pending inpatient psych transfer. [facility]. Hyperthyroidism. TSH less than 0.1. Normal free T4. Will get T3 level. Consult endocrinology. Continue methimazole for now. Consider ultrasound thyroid. Continue other home medication. PUD DVT prophylaxis 12-31-2019 patient is awake alert oriented he is talking on the telephone calm cooperative awaiting transfer to [facility] Concerned about smoking Has a one-to-one sitter Endocrinology has evaluated and placed medication orders for discharge Will continue to follow until patient accepted to [facility] SUBJECTIVE: No new complaint. All other systems reviewed and negative other than noted above. OBJECTIVE: Physical Examination: BP 114/71 (BP Location: Left arm, Patient Position: Lying) Pulse 78 Temp 98.7 F (37.1 C) (Oral) Resp 16 Ht 5' 7 Wt 67.1 kg (148 lb) SpO2 95% BMI 23.18 kg/m General Appearance: Alert, well appearing, and in no acute distress. HEENT: Head - Normocephalic, atraumatic. Eyes - AKOSUA bilaterally and EOMI. Ears - normal external appearance, hearing intact. Nose - normal, no erythema. Throat - mucous membranes moist, pharynx without lesions. Neck: Supple, trachea midline. Cardiovascular: S1, S2 normal. No murmurs, rubs, clicks or gallops appreciated. No pedal edema. Respiratory: Lungs clear to auscultation, no wheezes, rales or rhonchi heard. Abdomen: Soft, non-tender, normal bowel sounds, non-distended, no masses or organomegaly appreciated. Neurological: Grossly normal motor and sensory exam. No focal deficits. Musculoskeletal: No joint tenderness, deformity or swelling. Skin: Normal coloration and turgor. No rashes. Psych: Alert, oriented x 3. Paranoid. Cooperative to go out and smoke CURRENT MEDICATIONS: divalproex 500 mg Oral BID enoxaparin (LOVENOX) injection 40 mg Subcutaneous Daily methIMAzole 20 mg Oral Daily nicotine 1 patch Transdermal Daily paliperidone 6 mg Oral Daily Results/Medications Reviewed 12/31/19 1:29 PM: Results from last 7 days Lab Units 12/31/1945612/30/19 0426 12/27/19 0339 SODIUM mmol/L 141 142 142 POTASSIUM mmol/L 3.9 4.2 4.2 CHLORIDE mmol/L 110* 114* 114* BUN mg/dL 12 8 15 CREATININE mg/dL 0.57 0.56 0.58 GLUCOSE mg/dL 92 95 98 CALCIUM mg/dL 8.6 8.2* 8.4 Results from last 7 days Lab Units 12/31/1945612/30/19 0921 12/28/19 0449 WBC K/mcL 10.58 9.33 9.52 HGB g/dL 12.8* 12.3* 12.0* HCT % 39.5* 38.6* 37.4* PLT K/mcL 246 253 249 Results from last 7 days Lab Units 12/31/1945612/26/19 1614 ALK PHOS U/L 204* < > 221* BILIRUBIN TOTAL mg/dL 0.2 < > 0.2 BILIRUBIN DIRECT mg/dL -- -- <0.1 TOTAL PROTEIN g/dL 6.4 < > 7.5 ALTR U/L 25 < > 30 AST U/L 11 < > 28 < > = values in this interval not displayed. CULTURES: Reviewed 1:29 PM IMAGING: Reviewed 1:29 PM * Peyton Machado LSW - 12/31/2019 12:59 PM EDT Anton Charles called and asked this worker if the patient would stay on the medical floor until transferred to [facility]. Did speak with Evette Rocha, Director of Behavioral health, who stated she believed patient would stay on medical floor. Did confirm with Bridgett patient relations manager, that patient was medically cleared. Called Anton back and updated her that patient would remain on medical side. * Miriam Fuentes LISW - 12/31/2019 12:45 PM EDT DISCHARGE PLAN PROGRESS NOTE Date: 12/31/2019 Time: 12:45 PM Patient Name: Aba Carlton Date of : 2000 Sex: Male Discussed the patient this morning with CRISTAL Higginspre school manager and Lisa Berger RN with care management. The patient is upset and is asking if he is pink slipped and if he can leave. No [place] slip on chart however the probate court order just specifically state that the patient is ordered to remain in the hospital until a bed is available at [facility]. [facility] the patient was served with notification of his scheduled court hearing for guardianship. Rossana reported that temporary guardianship was issued to Benitez Hitchcock until the next court hearing. Requested this court order for temporary guardianship be faxed as this was not included in records received from the probate court. Rossana faxed guardianship order which was placed on the chart. Rossana reported if the patient has questions, he can speak with Benitez Hitchcock. Notified CRISTAL Higgins. DANETTE Sandoval [facility] Disposition D/C Disposition: Psychiatric Hospital Agency/Destination: [facility] * Fortino Messina CNP - 12/31/2019 9:50 AM EDT CONSULT NOTE Patient Name: Aba Carlton Admit Date: 12/26/2019 MR #: [id number] : 2000 Physicians: Adrienne Arcos CNP (Family); Brigette Bradshaw CNP (Referring) Assessment and Plan: Graves disease: Patient has been on methimazole 30 mg since discharge from hospital on 12/19 and he has had further improvement in his FT4 to 1.0. He has had extended period of hyperthyroidism, so his TSH will remain suppressed although his T4 is normalized. TSH will gradually become detectable. He will need to continue methimazole, with continued endocrine follow up. PLAN: Decrease methimazole to 20 mg daily. Recommend recheck of TSH and FT4 in 3-4 Weeks. Methimazole dose will need to be gradually decreased to a maintenance dose of 2.5-10 mg daily. 12/29 TSH <0.01, FT4--0.9. Currently on methimazole 20 mg/day. TSH will remain suppressed for several months due to prolonged period of hyperthyroidism. His FT4 is in the normal range, indicating good control of thyroid function. He will need check of TFTs in 2 weeks, and may need methimazole dose adjustment. Elevated CPK: Unclear etiology. ?related to Invega? ?early neuroleptic malignant syndrome? Discussed with Kassi Reyes CNP. Psychiatry has been consulted. 12/29 CPK 294, continues to normalize. Psychiatry has evaluated patient; CPK elevation not thought to be due to his Invega. 12/30: Labs reviewed. Patient's Free T3: 3.0. Patient's Creat: 0.57l; K: 3.9; Na: 141; AST: 11; ALT:25. Currently on methimazole 20 mg daily. Continue current meds. Check TFT's in 2 weeks and 4 weeks. Danilo's thyroiditis: +TPO antibody present. Chief Complaint/Reason for Visit: Elevated CPK History of Present Illness: Aba Carlton is a 19 y.o. y/o male with a history of schizoaffective disorder, bipolar type and Graves' disease. He was initially admitted on October for psychiatric treatment, and was diagnosed with Graves' disease at that time. Review of his previous laboratory testing revealed that he had evidence of hyperthyroidism when thyroid function tests were performed in February,. He was started on methimazole 40 mg daily and SSKI in early October, and his free T4 improved to approximately 2.6 during his admission. He was discharged 10/30/19 on methimazole 40 mg dailybut did not take his methimazole and was readmitted on 11/12/19 with psychiatric symptoms and persistent hyperthyroidism with free T4 increased back up to 6.9. He was again discharged, but readmitted 11/19/19 until 12/20/19 for an extended hospital stay in the behavioral health unit. During that admission, he received methimazole 40 mg daily with gradual improvement in his FT4 to 1.4 on 12/08/19. He was discharged on methimazole 30 mg daily. He has been takinghis methimazole and his FT4 has imrpoved further to 1.0. He denies heat/cold intolerance, chest pain, palpitations, diarrhea or constipation, or tremor. He has regained approximately 8 pounds since starting methimazole. He denies muscle pain or weakness. 12/30 Free T3: 3.0 12/28 TSH <0.01, FT4--0.9 12/26/19 TSH<0.01, FT4--1.0 12/08/19 TSH <0.01, FT4--1.4 11/19/19 TSH <0.01, FT4--3.7 11/12/19: TSH: <0.01; Free T4: 6.9 11/06/19: TSH: <0.01; Free T4: 6.4 10/30/19: Free T4: 2.6 10/27/19: Free T4: 2.9 10/24/19: Free T4: 5.1 10/21/19 Na 141, K 4.1, creat 0.59,AST 29, ALT 56, WBC 8.81, Hgb 12.2, Hct 38.1, Plt 231k, TSH <0.01, FT4>8.0, FT3-24.5 10/19/19: TSI: 5.0; TPO: 278.1 05/14/18 TSH<0.01, FT4--4.73 03/06/18 TSH <0.01, FT4--3.49 History: Past Medical History: Diagnosis Date ADHD Hypertension Hyperthyroidism 10/20/2019 Hyperthyroidism Hyperthyroidism Schizo affective schizophrenia (HCC) Schizoaffective disorder (HCC) 10/20/2019 History reviewed. No pertinent surgical history. Family History Family history unknown: Yes Social History Socioeconomic History Marital status: Single Spouse name: Not on file Number of children: Not on file Years of education: Not on file Highest education level: Not on file Occupational History Not on file Social Needs Financial resource strain: Not on file Food insecurity Worry: Not on file Inability: Not on file Transportation needs Medical: Not on file Non-medical: Not on file Tobacco Use Smoking status: Current Every Day Smoker Packs/day: 1.00 Years: 5.00 Pack years: 5.00 Smokeless tobacco: Never Used Substance and Sexual Activity Alcohol use: Not Currently Drug use: Yes Types: Marijuana Comment: I don't even smoke pot monthly Sexual activity: Not Currently Lifestyle Physical activity Days per week: Not on file Minutes per session: Not on file Stress: Not on file Relationships Social connections Talks on phone: Not on file Gets together: Not on file Attends restorationist service: Not on file Active member of club or organization: Not on file Attends meetings of clubs or organizations: Not on file Relationship status: Not on file Other Topics Concern Not on file Social History Narrative Not on file Allergy Information: I have reviewed the patient's allergies. Grass pollen-red top, standard and Mite extract Home Medications: Outpatient Medications as of 12/31/2019 Medication Sig divalproex (DEPAKOTE ER) 500 MG 24 hr tablet Take 1 (one) tablet (500 mg total) by mouth 2 (two) times a day . methIMAzole (TAPAZOLE) 10 MG tablet Take 3 (three) tablets (30 mg total) by mouth daily . paliperidone (INVEGA) 6 MG 24 hr tablet Take 1 (one) tablet (6 mg total) by mouth daily Start: 12/19/19. [START ON 01/01/2020] methIMAzole (TAPAZOLE) 10 MG tablet Take 2 (two) tablets (20 mg total) by mouth daily Start: 01/01/20. Hospital Medications: Scheduled Meds: divalproex 500 mg Oral BID enoxaparin (LOVENOX) injection 40 mg Subcutaneous Daily methIMAzole 20 mg Oral Daily nicotine 1 patch Transdermal Daily paliperidone 6 mg Oral Daily Continuous Infusions: PRN Meds:. Review of Systems: The following system(s) were reviewed and pertinent findings noted: Review of Systems Constitutional: Negative for appetite change, fatigue and unexpected weight change (regained 8 pounds). HENT: Negative for trouble swallowing and voice change. Eyes: Negative for pain, redness and visual disturbance. Respiratory: Negative for shortness of breath. Cardiovascular: Negative for chest pain and palpitations. Gastrointestinal: Negative for constipation and diarrhea. Endocrine: Negative for cold intolerance and heat intolerance. Musculoskeletal: Negative for neck pain. Neurological: Negative for tremors. Psychiatric/Behavioral: Currently cooperative. 12/25 Na 139, K 4.0, creat 0.96, Ca 9.1, AST 28, ALT 30, WBC 13.00, Hgb 13.8,Hct 42.3, Plt 306k Physical Examination: Vital Signs: BP 114/71 (BP Location: Left arm, Patient Position: Lying) Pulse 78 Temp 98.7 F (37.1 C) (Oral) Resp 16 Ht 5' 7 Wt 67.1 kg (148 lb) SpO2 95% BMI 23.18 kg/m Physical Exam Constitutional: He is oriented to person, place, and time. He appears well- developed and well-nourished. HENT: Head: Normocephalic and atraumatic. Eyes: Pupils are equal, round, and reactive to light. Conjunctivae and EOM are normal. Neck: Thyromegaly present. Cardiovascular: Normal rate, regular rhythm and normal heart sounds. No murmur heard. Pulmonary/Chest: Effort normal and breath sounds normal. No respiratory distress. He has no wheezes. He has no rales. Abdominal: Soft. Bowel sounds are normal. He exhibits no distension. There is no abdominal tenderness. Musculoskeletal: General: No edema. Lymphadenopathy: He has no cervical adenopathy. Neurological: He is alert and oriented to person, place, and time. No cranial nerve deficit. No tremor Skin: Skin is warm and dry. No erythema. Laboratory and Additional Data Reviewed: Laboratory 12/31/19 10:38 AM Radiology 12/31/19 10:38 AM Medications 12/31/19 10:38 AM Transcriptions 12/31/19 10:38 AM No results found for: HGBA1C Glucose (mg/dL) Date Value 12/31/2019 92 Creatinine (mg/dL) Date Value 12/31/2019 0.57 Lab Results Component Value Date CHOL 105 10/19/2019 TRIG 101 10/19/2019 HDL 33 (L) 10/19/2019 LDLCALC 52 10/19/2019 Lab Results Component Value Date TSH <0.01 (L) 12/29/2019 T4, Free Date Value Ref Range Status 12/29/2019 0.9 0.7 - 1.7 ng/dL Final Lab Results Component Value Date WBC 10.58 12/31/2019 HGB 12.8 (L) 12/31/2019 HCT 39.5 (L) 12/31/2019 MCV 88.4 12/31/2019 PLT 246 12/31/2019 This SmartLink has not been configured with any valid records. This SmartLink has not been configured with any valid records. Thank you for this consultation, we will continue to follow this patient with you. Fortino Messina CNP * Lisa Berger RN - 12/31/2019 9:35 AM EDT COMPLEX DISCHARGE Date: 12/31/2019 Time: 9:35 AM Patient Name: Aba Carlton Date of : 2000 Sex: Male Faxed EKG and Valproic acid results to [facility] and called nursing unit to make sure they receivedall faxes that they requested. They will take information in front of their physician for review and get back with us and state this could still take a couple of days. Informed patient was getting anxious and his clothes had to be removed from the room. Discharge Planning Living Arrangements: Family members Caregiver Identified: No Support Systems: Family members Assistance Needed: no Type of Residence: Private residence Prior to Admission Home Care Services: No Has discharge transport been arranged?: Yes [facility] Disposition D/C Disposition: Psychiatric Hospital Agency/Destination: [facility] * Lisa Berger RN - 12/30/2019 3:40 PM EDT COMPLEX DISCHARGE Date: 12/30/2019 Time: 3:40 PM Patient Name: Aba Carlton Date of : 2000 Sex: Male [facility] called again and asking for entire lab results drawn. Ran off everything we had and faxedto [phone] . They called and still need depakot level-just ordered today. Central nursing at [facility] number is [phone] Discharge Planning Living Arrangements: Family members Caregiver Identified: No Support Systems: Family members Assistance Needed: no Type of Residence: Private residence Prior to Admission Home Care Services: No Has discharge transport been arranged?: Yes [facility] Disposition D/C Disposition: Psychiatric Hospital Agency/Destination: [facility] * Lisa Berger RN - 12/30/2019 12:30 PM EDT COMPLEX DISCHARGE Date: 12/30/2019 Time: 12:30 PM Patient Name: Aba Carlton Date of : 2000 Sex: Male Catalyst review here and evaluation complete. States she faxed it to [facility] and there are several in front of him for admission however they believe he could be put in front of them due to court order. They will call nursing floor when they have bed available and he will need transported per ambulance to [facility] at [address] [place] [address]. Discharge Planning Living Arrangements: Family members Caregiver Identified: No Support Systems: Family members Assistance Needed: no Type of Residence: Private residence Prior to Admission Home Care Services: No Has discharge transport been arranged?: Yes * Namita Walker MD - 12/30/2019 11:44 AM EDT [facility] Inpatient Follow-up 12/30/2019 Namita Walker MD [facility] Patient: Aba Carlton Date of : 2000 (19 y.o.) PCP: Adrienne Arcos CNP ASSESSMENT/PLAN: Aba Carlton 19 y.o. male presented with Active Problems: Schizoaffective disorder, bipolar type (HCC) Elevated CPK Spontaneous rhabdomyolysis Dehydration Hyperthyroidism Past Medical History: Diagnosis Date ADHD Hypertension Hyperthyroidism 10/20/2019 Hyperthyroidism Hyperthyroidism Schizo affective schizophrenia (HCC) Schizoaffective disorder (HCC) 10/20/2019 PLAN: Dehydration and spontaneous rhabdomyolysis. Resolved with with IV fluids. Schizoaffective disorders/bipolar. Continue antipsychotics as per psychiatry. One-to-one observation. Pending inpatient psych transfer. [facility]. Hyperthyroidism. TSH less than 0.1. Normal free T4. Will get T3 level. Consult endocrinology. Continue methimazole for now. Consider ultrasound thyroid. Continue other home medication. PUD DVT prophylaxis SUBJECTIVE: No new complaint. All other systems reviewed and negative other than noted above. OBJECTIVE: Physical Examination: BP 103/67 (BP Location: Right arm, Patient Position: Lying) Pulse 62 Temp 97.2 F (36.2 C) (Axillary) Resp 18 Ht 5' 7 Wt 67.1 kg (148 lb) SpO2 97% BMI 23.18 kg/m General Appearance: Alert, well appearing, and in no acute distress. HEENT: Head - Normocephalic, atraumatic. Eyes - AKOSUA bilaterally and EOMI. Ears - normal external appearance, hearing intact. Nose - normal, no erythema. Throat - mucous membranes moist, pharynx without lesions. Neck: Supple, trachea midline. Cardiovascular: S1, S2 normal. No murmurs, rubs, clicks or gallops appreciated. No pedal edema. Respiratory: Lungs clear to auscultation, no wheezes, rales or rhonchi heard. Abdomen: Soft, non-tender, normal bowel sounds, non-distended, no masses or organomegaly appreciated. Neurological: Grossly normal motor and sensory exam. No focal deficits. Musculoskeletal: No joint tenderness, deformity or swelling. Skin: Normal coloration and turgor. No rashes. Psych: Alert, oriented x 3. Paranoid. CURRENT MEDICATIONS: divalproex 500 mg Oral BID enoxaparin (LOVENOX) injection 40 mg Subcutaneous Daily methIMAzole 20 mg Oral Daily nicotine 1 patch Transdermal Daily paliperidone 6 mg Oral Daily Results/Medications Reviewed 12/30/19 11:44 AM: Results from last 7 days Lab Units 12/30/19 0426 12/27/19 0339 12/26/19 1614 SODIUM mmol/L 142 142 139 POTASSIUM mmol/L 4.2 4.2 4.0 CHLORIDE mmol/L 114* 114* 106 BUN mg/dL 8 15 14 CREATININE mg/dL 0.56 0.58 0.96 GLUCOSE mg/dL 95 98 93 CALCIUM mg/dL 8.2* 8.4 9.1 Results from last 7 days Lab Units 12/30/19 0921 12/28/19 0449 12/26/19 1614 WBC K/mcL 9.33 9.52 13.00* HGB g/dL 12.3* 12.0* 13.8 HCT % 38.6* 37.4* 42.3 PLT K/mcL 253 249 306 Results from last 7 days Lab Units 12/30/19 0426 12/26/19 1614 ALK PHOS U/L 188* 221* BILIRUBIN TOTAL mg/dL 0.2 0.2 BILIRUBIN DIRECT mg/dL -- <0.1 TOTAL PROTEIN g/dL 6.0 7.5 ALTR U/L 24 30 AST U/L 15 28 CULTURES: Reviewed 11:44 AM IMAGING: Reviewed 11:44 AM * Anton Colindres LISW - 12/30/2019 10:53 AM EDT This worker received call back from Mendy Ivy Prescreener who will be out to assess Patient to complete prescreen process for probate to [facility]. Left message for Lisa Berger RN Case Manager to update. * Anton Colindres LISW - 12/30/2019 9:57 AM EDT Spoke with Mendy Kaufman for further direction on completion of prescreen for Patient who was probated to [facility], now that his labs are in normal range. Deborah reports Supervisors at [facility] are aware and are trying to work out a solution to have someone come to hospital to complete prescreen as prescreener who normally completes is off today (and yesterday). Await call back from Deborah. Lisa RN, Home Sales Consultant updated. * Lisa Berger RN - 12/30/2019 9:46 AM EDT COMPLEX DISCHARGE Date: 12/30/2019 Time: 9:46 AM Patient Name: Aba Carlton Date of : 2000 Sex: Male Called Anton MOURA with psychiatric services in ED [facility] find [facility] about evaluations to be done to transfer to [facility]. Discharge Planning Living Arrangements: Family members Caregiver Identified: No Support Systems: Family members Assistance Needed: no Type of Residence: Private residence Prior to Admission Home Care Services: No Has discharge transport been arranged?: Yes * Cindy Nieto MD - 12/30/2019 8:33 AM EDT CONSULT NOTE Patient Name: Aba Carlton Admit Date: 12/26/2019 MR #: [id number] : 2000 Physicians: Adrienne Arcos CNP (Family); Brigette Bradshaw CNP (Referring) Assessment and Plan: Graves disease: Patient has been on methimazole 30 mg since discharge from hospital on 12/19 and he has had further improvement in his FT4 to 1.0. He has had extended period of hyperthyroidism, so his TSH will remain suppressed although his T4 is normalized. TSH will gradually become detectable. He will need to continue methimazole, with continued endocrine follow up. PLAN: Decrease methimazole to 20 mg daily. Recommend recheck of TSH and FT4 in 3-4 Weeks. Methimazole dose will need to be gradually decreased to a maintenance dose of 2.5-10 mg daily. 12/29 TSH <0.01, FT4--0.9. Currently on methimazole 20 mg/day. TSH will remain suppressed for several months due to prolonged period of hyperthyroidism. His FT4 is in the normal range, indicating good control of thyroid function. He will need check of TFTs in 2 weeks, and may need methimazole dose adjustment. Elevated CPK: Unclear etiology. ?related to Invega? ?early neuroleptic malignant syndrome? Discussed with Kassi Reyes CNP. Psychiatry has been consulted. 12/29 CPK 294, continues to normalize. Psychiatry has evaluated patient; CPK elevation not thought to be due to his Invega. Danilo's thyroiditis: +TPO antibody present. Chief Complaint/Reason for Visit: Elevated CPK History of Present Illness: Aba Carlton is a 19 y.o. y/o male with a history of schizoaffective disorder, bipolar type and Graves' disease. He was initially admitted on October for psychiatric treatment, and was diagnosed with Graves' disease at that time. Review of his previous laboratory testing revealed that he had evidence of hyperthyroidism when thyroid function tests were performed in February,. He was started on methimazole 40 mg daily and SSKI in early October, and his free T4 improved to approximately 2.6 during his admission. He was discharged 10/30/19 on methimazole 40 mg dailybut did not take his methimazole and was readmitted on 11/12/19 with psychiatric symptoms and persistent hyperthyroidism with free T4 increased back up to 6.9. He was again discharged, but readmitted 11/19/19 until 12/20/19 for an extended hospital stay in the behavioral health unit. During that admission, he received methimazole 40 mg daily with gradual improvement in his FT4 to 1.4 on 12/08/19. He was discharged on methimazole 30 mg daily. He has been takinghis methimazole and his FT4 has imrpoved further to 1.0. He denies heat/cold intolerance, chest pain, palpitations, diarrhea or constipation, or tremor. He has regained approximately 8 pounds since starting methimazole. He denies muscle pain or weakness. 12/28 TSH <0.01, FT4--0.9 12/26/19 TSH<0.01, FT4--1.0 12/08/19 TSH <0.01, FT4--1.4 11/19/19 TSH <0.01, FT4--3.7 11/12/19: TSH: <0.01; Free T4: 6.9 11/06/19: TSH: <0.01; Free T4: 6.4 10/30/19: Free T4: 2.6 10/27/19: Free T4: 2.9 10/24/19: Free T4: 5.1 10/21/19 Na 141, K 4.1, creat 0.59,AST 29, ALT 56, WBC 8.81, Hgb 12.2, Hct 38.1, Plt 231k, TSH <0.01, FT4>8.0, FT3-24.5 10/19/19: TSI: 5.0; TPO: 278.1 05/14/18 TSH<0.01, FT4--4.73 03/06/18 TSH <0.01, FT4--3.49 History: Past Medical History: Diagnosis Date ADHD Hypertension Hyperthyroidism 10/20/2019 Hyperthyroidism Hyperthyroidism Schizo affective schizophrenia (HCC) Schizoaffective disorder (HCC) 10/20/2019 History reviewed. No pertinent surgical history. Family History Family history unknown: Yes Social History Socioeconomic History Marital status: Single Spouse name: Not on file Number of children: Not on file Years of education: Not on file Highest education level: Not on file Occupational History Not on file Social Needs Financial resource strain: Not on file Food insecurity Worry: Not on file Inability: Not on file Transportation needs Medical: Not on file Non-medical: Not on file Tobacco Use Smoking status: Current Every Day Smoker Packs/day: 1.00 Years: 5.00 Pack years: 5.00 Smokeless tobacco: Never Used Substance and Sexual Activity Alcohol use: Not Currently Drug use: Yes Types: Marijuana Comment: I don't even smoke pot monthly Sexual activity: Not Currently Lifestyle Physical activity Days per week: Not on file Minutes per session: Not on file Stress: Not on file Relationships Social connections Talks on phone: Not on file Gets together: Not on file Attends restorationist service: Not on file Active member of club or organization: Not on file Attends meetings of clubs or organizations: Not on file Relationship status: Not on file Other Topics Concern Not on file Social History Narrative Not on file Allergy Information: I have reviewed the patient's allergies. Grass pollen-red top, standard and Mite extract Home Medications: Outpatient Medications as of 12/30/2019 Medication Sig divalproex (DEPAKOTE ER) 500 MG 24 hr tablet Take 1 (one) tablet (500 mg total) by mouth 2 (two) times a day . methIMAzole (TAPAZOLE) 10 MG tablet Take 3 (three) tablets (30 mg total) by mouth daily . paliperidone (INVEGA) 6 MG 24 hr tablet Take 1 (one) tablet (6 mg total) by mouth daily Start: 12/19/19. Hospital Medications: Scheduled Meds: divalproex 500 mg Oral BID enoxaparin (LOVENOX) injection 40 mg Subcutaneous Daily methIMAzole 20 mg Oral Daily nicotine 1 patch Transdermal Daily paliperidone 6 mg Oral Daily Continuous Infusions: sodium chloride 0.9 % Stopped (12/27/19 0834) sodium chloride 0.9 % 200 mL/hr (12/29/19 1800) PRN Meds:. Review of Systems: The following system(s) were reviewed and pertinent findings noted: Review of Systems Constitutional: Negative for appetite change, fatigue and unexpected weight change (regained 8 pounds). HENT: Negative for trouble swallowing and voice change. Eyes: Negative for pain, redness and visual disturbance. Respiratory: Negative for shortness of breath. Cardiovascular: Negative for chest pain and palpitations. Gastrointestinal: Negative for constipation and diarrhea. Endocrine: Negative for cold intolerance and heat intolerance. Musculoskeletal: Negative for neck pain. Neurological: Negative for tremors. Psychiatric/Behavioral: Currently cooperative. 12/25 Na 139, K 4.0, creat 0.96, Ca 9.1, AST 28, ALT 30, WBC 13.00, Hgb 13.8,Hct 42.3, Plt 306k Physical Examination: Vital Signs: BP 103/67 (BP Location: Right arm, Patient Position: Lying) Pulse 62 Temp 97.2 F (36.2 C) (Axillary) Resp 18 Ht 5' 7 Wt 67.1 kg (148 lb) SpO2 97% BMI 23.18 kg/m Physical Exam Constitutional: He is oriented to person, place, and time. He appears well- developed and well-nourished. HENT: Head: Normocephalic and atraumatic. Eyes: Pupils are equal, round, and reactive to light. Conjunctivae and EOM are normal. Neck: Thyromegaly present. Cardiovascular: Normal rate, regular rhythm and normal heart sounds. No murmur heard. Pulmonary/Chest: Effort normal and breath sounds normal. No respiratory distress. He has no wheezes. He has no rales. Abdominal: Soft. Bowel sounds are normal. He exhibits no distension. There is no abdominal tenderness. Musculoskeletal: General: No edema. Lymphadenopathy: He has no cervical adenopathy. Neurological: He is alert and oriented to person, place, and time. No cranial nerve deficit. No tremor Skin: Skin is warm and dry. No erythema. Laboratory and Additional Data Reviewed: Laboratory 12/30/19 8:33 AM Radiology 12/30/19 8:33 AM Medications 12/30/19 8:33 AM Transcriptions 12/30/19 8:33 AM No results found for: HGBA1C Glucose (mg/dL) Date Value 12/27/2019 98 Creatinine (mg/dL) Date Value 12/27/2019 0.58 Lab Results Component Value Date CHOL 105 10/19/2019 TRIG 101 10/19/2019 HDL 33 (L) 10/19/2019 LDLCALC 52 10/19/2019 Lab Results Component Value Date TSH <0.01 (L) 12/29/2019 T4, Free Date Value Ref Range Status 12/29/2019 0.9 0.7 - 1.7 ng/dL Final Lab Results Component Value Date WBC 9.52 12/28/2019 HGB 12.0 (L) 12/28/2019 HCT 37.4 (L) 12/28/2019 MCV 89.7 12/28/2019 PLT 249 12/28/2019 This SmartLink has not been configured with any valid records. This SmartLink has not been configured with any valid records. Thank you for this consultation, we will continue to follow this patient with you. Cindy Nieto MD * Sarah Reyes CNP - 12/29/2019 9:49 AM EDT [facility] Medicine Inpatient Follow-up 12/29/2019 Sarah Reyes CNP [facility] Patient: Aba Carlton Date of : 2000 (19 y.o.) PCP: Adrienne Arcos CNP ASSESSMENT/PLAN: Active Problems: Schizoaffective disorder, bipolar type (HCC) Elevated CPK PLAN: 12/26 -Continue hydration at 200, continue to monitor lung sounds, I&O -Endocrinology following, decrease methimazole to 20 mg daily -Repeat CPK 904, will continue to monitor -Psych Consult for medication assistance, possible elevation of CPK from Invega, will transfer to [facility] when medically cleared -Continue 1:1 monitoring 12/27 -Okay for patient to shower -Nicotine patch -CPK 425 today -Patient medically cleared for discharge to [facility] -Psych consulted, awaiting evaluation for medication assistance -Continue 1:1 monitoring 12/28 -Continue current plan, IV hydration at 200 mL's per hour -Continue to monitor CPK, 572, monitor for signs of muscle rigidity -Psychiatry evaluated patient, currently in manic phase, recommending continued IV hydration, elevated CPK unlikely due to Invega as patient does not appear to be compliant outpatient -Care management following, [facility] patient to [facility] SUBJECTIVE: Patent denies any complaints, sitter at bedside. Patient is cooperative, appears to be paranoid. Denies suicidal or homicidal ideation, hallucinations, hearing voices. All other systems reviewed and negative other than noted above. OBJECTIVE: Physical Examination: BP 130/74 Pulse 79 Temp 97.8 F (36.6 C) (Axillary) Resp 14 Ht 5' 7 Wt 67.1 kg (148 lb) SpO2 95% BMI 23.18 kg/m General Appearance: Alert, well appearing, and in no acute distress. HEENT: Head - Normocephalic, atraumatic. Eyes - AKOSUA bilaterally and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 Past Medical History: Diagnosis Date ADHD Hypertension Hyperthyroidism 10/20/2019 Hyperthyroidism Hyperthyroidism Schizo affective schizophrenia (HCC) Schizoaffective disorder (HCC) 10/20/2019 History reviewed. No pertinent surgical history. Family History: Family History Family history unknown: Yes Allergy Information: I have reviewed the patient's allergies. Grass pollen-red top, standard and Mite extract Home Medications: Outpatient Medications as of 11/21/2019 Medication Sig methIMAzole (TAPAZOLE) 10 MG tablet Take 4 (four) tablets (40 mg total) by mouth daily . paliperidone (INVEGA) 6 MG 24 hr tablet Take 6 mg by mouth every morning . propranoloL (INDERAL) 10 MG tablet Take 1 (one) tablet (10 mg total) by mouth every 12 (twelve) hours . ipratropium-albuteroL (DUO-NEB) 0.5-2.5 mg/3 ml nebulizer Take 3 mL by nebulization every 4 (four) hours . nicotine (NICODERM CQ) 21 mg/[address] 1 (one) patch on the skin daily Start: 11/20/19. paliperidone palmitate (INVEGA SUSTENNA) 156 mg/mL Syrg Inject 156 mg into the shoulder, thigh, or buttocks every 28 days . Review of Systems: Constitutional: Denies fever, chills, diaphoresis, malaise Eyes: Denies blurred vision, double vision ENT: Denies nasal congestion, sore throat Neurological: Denies headache, photophobia, weakness, numbness CVS: Denies chest pain or palpitations Respiratory: Denies dyspnea or cough Musculoskeletal: Denies joint pain or muscle aches GI: Denies nausea, vomiting, constipation, or diarrhea : Denies urinary urgency, frequency, or burning Integumentary: Denies itching or rash Endocrine: Denies heat/cold intolerance or weight loss/weight gain Physical Examination: Vital Signs: BP 111/68 Pulse (!) 112 Temp 99.4 F (37.4 C) (Infrared) Resp 16 Ht 5' 7 Wt 61.1 kg (134 lb 9.6 oz) SpO2 94% BMI 21.08 kg/m Mental Status Evaluation: General Appearance & Behavior: age appropiate, thin and gaunt, uncooperative and good eye contact Grooming & Hygiene: hospital gown Psychomotor Activity: restless and psychomotor agitation Gait & Station stable gait and ability to rise from bed/chair without assistance Speech: hyperverbal, pressured, non-sensical and rambling Flow of Thought: requires frequent redirection to stay on topic, flight of ideas and disorganized Thought Associations: Loose Content of Thought: No evidence of SI/HI, auditory hallucinations, visual hallucinations, delusions and paranoia Mood: fine Affect: blunted Insight: poor Judgment: impaired Orientation: alert and oriented to person, place, time, and circumstances Memory: intact recent and remote Attention: impaired Concentration: reduced Language: fluent Fund of Knowledge: estimated average intelligence Laboratory and Additional Data Reviewed: Laboratory 11/21/19 1:38 PM Chemistry, CBC, TSH and Urine drug screen Radiology 11/21/19 1:38 PM Cardiology 11/21/19 1:38 PM EKG Medications 11/21/19 1:38 PM Transcriptions 11/21/19 1:38 PM Carey Goldman MD 11/21/2019 1:38 PM Associated Order(s): IP CONSULT TO ENDOCRINOLOGY CONSULT NOTE Patient Name: Aba Carlton Admit Date: 11/20/2019 MR #: [id number] : 2000 Physicians: Adrienne Arcos CNP (Family); Dr Todd (Referring) Assessment and Plan: Hyperthyroidism secondary to Graves disease: Cont. Methimazole 40mg oral daily Chief Complaint/Reason for Visit: Hyperthyroidism History of Present Illness: Aba Carlton is a 19 y.o. y/o male admitted from ER with tachycardia and hyperthyroidism. Patient with hx of hyperthyroidism noted on TFTs since at least 03/03, admitted for treatment of schizophrenia. He has multiple symptoms of hyperthyroidism. Patient was hospitalized 10/19/19, diagnosed with Graves' disease and Danilo's thyroiditis. Patient treated with 40 mg daily and SSKI gtt when hospitalized in early October, and again at the end of October. He was discharged on 11/19/19, and immediately returned about 24 hours later with symptoms of hyperthyroidism. In addition he was brought by [employer] as he had stolen his grandparents car which is still missing. He apparently has not been taking his psych or thyroid medications. This is now his 3rd re-admission for hyperthyroidism, due to med. Non-compliance. Lab review: 11/20/19: TSH < 0.01 FT4 3.9 History: Past Medical History: Diagnosis Date ADHD Hypertension Hyperthyroidism 10/20/2019 Hyperthyroidism Hyperthyroidism Schizo affective schizophrenia (HCC) Schizoaffective disorder (HCC) 10/20/2019 History reviewed. No pertinent surgical history. Family History Family history unknown: Yes Social History Socioeconomic History Marital status: Single Spouse name: Not on file Number of children: Not on file Years of education: Not on file Highest education level: Not on file Occupational History Not on file Social Needs Financial resource strain: Not on file Food insecurity Worry: Not on file Inability: Not on file Transportation needs Medical: Not on file Non-medical: Not on file Tobacco Use Smoking status: Current Every Day Smoker Packs/day: 1.00 Years: 5.00 Pack years: 5.00 Smokeless tobacco: Never Used Substance and Sexual Activity Alcohol use: Not Currently Drug use: Yes Types: Marijuana Comment: I don't even smoke pot monthly Sexual activity: Not Currently Lifestyle Physical activity Days per week: Not on file Minutes per session: Not on file Stress: Not on file Relationships Social connections Talks on phone: Not on file Gets together: Not on file Attends restorationist service: Not on file Active member of club or organization: Not on file Attends meetings of clubs or organizations: Not on file Relationship status: Not on file Other Topics Concern Not on file Social History Narrative Not on file Allergy Information: I have reviewed the patient's allergies. Grass pollen-red top, standard and Mite extract Hospital Medications: Scheduled Meds: carvediloL 12.5 mg Oral BID hydrocortisone sod succinate 50 mg Intravenous Q6H IMER ipratropium-albuteroL 3 mL Inhalation Q4H IMER methIMAzole 20 mg Oral BID paliperidone 6 mg Oral QAM Continuous Infusions: sodium chloride 0.9 % sodium chloride 0.9 % 50 mL/hr (11/21/19 3557) PRN Meds:.acetaminophen, LORazepam, ondansetron OR ondansetron, [COMPLETED] Insert peripheral IV AND Saline lock IV AND sodium chloride (PF) AND sodium chloride 0.9 % Review of Systems: The following system(s) were reviewed and pertinent findings noted: Review of Systems Constitutional: Negative for appetite change, fatigue and unexpected weight change. HENT: Negative for trouble swallowing and voice change. Eyes: Negative for pain, redness and visual disturbance. Respiratory: Negative for shortness of breath. Cardiovascular: Negative for chest pain and palpitations. Gastrointestinal: Negative for constipation and diarrhea. Endocrine: Positive for heat intolerance. Negative for cold intolerance. Musculoskeletal: Negative for neck pain. Neurological: Negative for tremors. Psychiatric/Behavioral: Positive for behavioral problems, confusion and sleep disturbance. The patient is not nervous/anxious. Physical Examination: Vital Signs: BP 106/62 Pulse (!) 115 Temp 98.6 F (37 C) Resp 15 Ht 5' 7 Wt 61.1 kg (134 lb 9.6 oz) SpO2 99% BMI 21.08 kg/m Physical Exam Constitutional: He is oriented to person, place, and time. He appears well- developed and well-nourished. HENT: Head: Normocephalic and atraumatic. No exophthalmos or lid lag Eyes: Pupils are equal, round, and reactive to light. Conjunctivae and EOM are normal. No scleral icterus. Neck: Normal range of motion. Neck supple. Thyromegaly present. Cardiovascular: Normal rate, regular rhythm and normal heart sounds. No murmur heard. Pulmonary/Chest: Effort normal and breath sounds normal. No respiratory distress. He has no wheezes. He has no rales. Abdominal: He exhibits no distension. Musculoskeletal: General: No edema. Neurological: He is alert and oriented to person, place, and time. No cranial nerve deficit. Skin: Skin is warm. No erythema. Psychiatric: He has a normal mood and affect. His speech is normal. His affect is not inappropriate. He is hyperactive. He is not actively hallucinating. Thought content is delusional. Thought content is not paranoid. Cognition and memory are not impaired. He expresses inappropriate judgment. Laboratory and Additional Data Reviewed: Laboratory 11/21/19 10:09 AM Transcriptions 11/21/19 10:09 AM No results found for: HGBA1C Glucose (mg/dL) Date Value 11/20/2019 93 Creatinine (mg/dL) Date Value 11/20/2019 0.59 Lab Results Component Value Date CHOL 105 10/19/2019 TRIG 101 10/19/2019 HDL 33 (L) 10/19/2019 LDLCALC 52 10/19/2019 Lab Results Component Value Date TSH <0.01 (L) 11/20/2019 T4, Free Date Value Ref Range Status 11/20/2019 3.9 (H) 0.7 - 1.7 ng/dL Final Lab Results Component Value Date WBC 10.33 11/20/2019 HGB 13.0 (L) 11/20/2019 HCT 39.2 (L) 11/20/2019 MCV 85.8 11/20/2019 PLT 239 11/20/2019 This SmartLink has not been configured with any valid records. This SmartLink has not been configured with any valid records. Thank you for this consultation, we will continue to follow this patient with you. Electronically signed by Fabienne MURO 11/20/2010:28 AM documented in this encounter Associated Order(s): IP CONSULT TO HOSPITALIST Hospital Medicine Inpatient Consult H&P 11/25/2019 Emerita Santamaria CNP [facility] Patient: Aba Carlton Date of : 2000 (19 y.o.) PCP: Adrienne Arcos CNP Referring Provider: Carey Goldman MD Consult: Lanette Cordon MD: Hospitalist assistance with medical management Of note, this patient was admitted to the acute inpatient behavioral health unit following the declaration of a National State of Emergency due to the COVID-19 pandemic, as issued by the street railway line installer on 06/27/2019. ASSESSMENT/PLAN: Principal Problem: Schizoaffective disorder, bipolar type (HCC) Active Problems: Psychoactive substance abuse (HCC) ASSESSMENT/PLAN: Principal Problem: Schizoaffective disorder, bipolar type (HCC) Active Problems: Hyperthyroidism Psychoactive substance abuse (HCC) Hyperthyroidism Assessment & Plan A: Hyperthyroidism, probable Graves Disease, diagnosed earlier this month. Under the care of Dr. Nieto. Patient is again in denial that he has a thyroid problem and has refused medications as an outpatient. TSH <0.01 and free T4 6.9 at admission. Pulse currently in the 130's. Agitation, hungry and thirsty. P: Resume medications. Re-consult Dr. Nieto for endocrine management. Provide between meal snacks and boost for pt due to high metabolism and feeling hungry Monitor HR carefully, encourage pt to take medications. SUBJECTIVE: Chief Complaint/Reason for Visit: psychosis History of Present Illness: Aba Carlton 19 y.o. male with history of schizophrenia, ETOH abuse, suicidal ideation and overdoses, PNA, synthetic marijuana abuse, methamphetamine abuse. Hyperthyroidism, uncontrolled. Tachycardia, insomnia, who was admitted to the inpatient behavioral health unit on 11/22/19 for psychosis. He was just released from this hospital on 11/19/19. He presented to the ED brought by police on 11/19. He was trying to get his ID from his grandfather to go to [place]. He stole his grandfathers car and was picked up by police. Tachycardic and diaphoretic in the ED so sent to the medical floor for thyroid storm due to his uncontrolled hyperthyroidism. Pt is non compliant upon discharge from the hospital. When medically stable he was sent to the psychiatric floor. He will be probated by Dr. Goldman. Past Medical History: Diagnosis Date ADHD Hypertension Hyperthyroidism 10/20/2019 Hyperthyroidism Hyperthyroidism Schizo affective schizophrenia (HCC) Schizoaffective disorder (HCC) 10/20/2019 No past surgical history on file. Family History Family history unknown: Yes Social History Tobacco Use Smoking Status Current Every Day Smoker Packs/day: 1.00 Years: 5.00 Pack years: 5.00 Smokeless Tobacco Never Used Allergies: Grass pollen-red top, standard and Mite extract Home Medications: Prior to Admission medications Medication Sig Start Date End Date Taking? Authorizing Provider methIMAzole (TAPAZOLE) 10 MG tablet Take 2 (two) tablets (20 mg total) by mouth 2 (two) times a day . 11/22/19 12/22/19 Yes Keri Maurice MD nicotine (NICODERM CQ) 21 mg/[address] 1 (one) patch on the skin daily Start: 11/20/19. 11/20/19 12/20/19 Yes Carey Goldman MD paliperidone (INVEGA) 6 MG 24 hr tablet Take 6 mg by mouth every morning . Yes Historical Provider, propranoloL (INDERAL) 10 MG tablet Take 1 (one) tablet (10 mg total) by mouth every 12 (twelve) hours . 11/04/19 12/04/19 Yes Adrienne Arcos CNP ipratropium-albuteroL (DUO-NEB) 0.5-2.5 mg/3 ml nebulizer Take 3 mL by nebulization every 4 (four) hours . 11/19/19 12/19/19 Carey Goldman MD paliperidone palmitate (INVEGA SUSTENNA) 156 mg/mL Syrg Inject 156 mg into the shoulder, thigh, or buttocks every 28 days . Historical Provider, Current Scheduled Meds: methIMAzole 20 mg Oral BID nicotine 1 patch Transdermal Daily paliperidone 6 mg Oral Daily propranoloL 10 mg Oral Q12H IMER Review of Systems: The following system(s) were reviewed and pertinent findings noted: Review of Systems Physical Examination: Vital Signs: BP (!) 144/84 Pulse (!) 117 Temp 97.9 F (36.6 C) Resp 18 Ht 5' 7 Wt 63 kg (138 lb 12.8 oz) SpO2 98% BMI 21.74 kg/m General Appearance: Alert, manic, pacing, no eye contact, and in no acute distress. HEENT: Head - Normocephalic, atraumatic. Eyes - AKOSUA bilaterally and EOMI. Ears - normal external appearance, hearing intact. Nose - normal, no erythema. Throat - mucous membranes moist, pharynx without lesions. Neck: Supple, trachea midline. Cardiovascular: S1, S2 normal. No murmurs, rubs, clicks or gallops appreciated. No pedal edema. Tachycardic Respiratory: Lungs clear to auscultation, no wheezes, rales or rhonchi heard. Abdomen: Soft, non-tender, normal bowel sounds, non-distended, no masses or organomegaly appreciated. Neurological: Grossly normal motor and sensory exam. No focal deficits. Musculoskeletal: No joint tenderness, deformity or swelling. Skin: Normal coloration and turgor. No rashes. Psych: Alert, oriented x 1. Manic, hyperactive mood and affect. Laboratory and Additional Data Reviewed: Results/Medications Reviewed 11/25/19 7:29 AM: Results from last 7 days Lab Units 11/20/19 1309 SODIUM mmol/L 139 POTASSIUM mmol/L 3.8 CHLORIDE mmol/L 108 BUN mg/dL 11 CREATININE mg/dL 0.59 GLUCOSE mg/dL 93 CALCIUM mg/dL 9.0 Results from last 7 days Lab Units 11/20/19 1309 WBC K/mcL 10.33 HGB g/dL 13.0* HCT % 39.2* PLT K/mcL 239 Results from last 7 days Lab Units 11/20/19 1309 TROPONIN I ng/L <15 Results from last 7 days Lab Units 11/20/19 1309 ALK PHOS U/L 224* BILIRUBIN TOTAL mg/dL 0.6 TOTAL PROTEIN g/dL 7.2 ALTR U/L 50 AST U/L 19 No results found for this or any previous visit (from the past 24 hour(s)). CULTURES: Reviewed 11/25/19 7:29 AM Radiology/Imaging: Reviewed 11/25/19 7:29 AM Xr Chest 1 View Result Date: 11/20/2019 EXAMINATION: XR CHEST PA/AP 11/20/2019 1:56 pm HISTORY: ORDERING SYSTEM PROVIDED HISTORY: Chest pain, TECHNOLOGIST PROVIDED HISTORY: Illness/Other Reason for exam: CHEST PAIN Cancer History: u Surgery, RadiationHistory: u Encounter Type: Initial Additional signs and symptoms: NA ORDERING SYSTEM PROVIDED DIAGNOSIS CODES: COMPARISON: AP chest 11/18/2019. FINDINGS: The patient is somewhat rotated. The cardiomediastinal contours are stable and within normal limits. No dense consolidation, effusion, edema, failure or pneumothorax noted. No acute osseous abnormality is identified. No acute cardiopulmonary process suspected. Transmension/Backdoor Workstation ID: [id number] Xr Chest 1 View Result Date: 11/18/2019 EXAMINATION: XR CHEST PA/AP HISTORY: ORDERING SYSTEM PROVIDED HISTORY: shortness of breath, TECHNOLOGIST PROVIDED HISTORY: Illness/Other Reason for exam: shortness of breath Cancer History: u Surgery, RadiationHistory: u Encounter Type: Initial Additional signs and symptoms: . ORDERING SYSTEM PROVIDED DIAGNOSIS CODES: F25.0 Schizoaffective disorder, bipolar type (HCC) COMPARISON: 11/06/2019 FINDINGS: Cardiomediastinal contours within normal limits. No focal consolidative process, pulmonary edema, pleural effusion, or pneumothorax. Osseous structures are intact. No acute cardiopulmonary process. Workstation ID: [id number] Xr Chest 1 View Result Date: 11/06/2019 XR CHEST, 1 VIEW ([id number]) CLINICAL HISTORY: ORDERING SYSTEM PROVIDED dehydration., TECHNOLOGIST PROVIDED HISTORY: Illness/Other Reason for exam: dehydration Cancer History: u Surgery, RadiationHistory: u Encounter Type: Initial Additional signs and symptoms: . ORDERING SYSTEM PROVIDED DIAGNOSIS CODES: COMPARISON: No relevant prior studies available. FINDINGS: LUNGS: The lungs demonstrate no consolidations. Minimal bilateral peribronchial thickening and mild interstitial accentuation in the perihilar areas. HEART: The heart is normal in size and position. MEDIASTINUM: No gross abnormality. BONES/JOINTS: NO definite fracture or dislocation. - Minimal bilateral peribronchial thickening and mild interstitial accentuation in the perihilar areas. The differential includes bronchitis. NO pneumonia and/or significant atelectasis. Workstation ID: [id number] @MRICT(48h)@ documented in this encounter Associated Order(s): IP CONSULT TO ENDOCRINOLOGY CONSULT NOTE Patient Name: Aba Carlton Admit Date: 10/19/2019 MR #: [id number] : 2000 Physicians: Physician No (Family); Mariam Santamaria CNP (Referring) Assessment and Plan: ASSESSMENT: Hyperthyroidism: Patient with hx of hyperthyroidism noted on TFTs since at least 03/03, admitted for treatment of schizophrenia. He has multiple symptoms of hyperthyroidism. Differential Dx includes Graves' disease, Danilo's thyroiditis, viral thyroiditis, toxic MNG; most likely Graves'vdisease given markedly elevated FT4 and duration of abnormal TFTs. PLAN: 10/20 Await TSI and TPO antibody. Start methimazole 20 mg BID and SSKI 5 gtts TID after methimazole given. Will need long-term outpatient follow up. Chief Complaint/Reason for Visit: hyperthyroidism History of Present Illness: Aba Carlton is a 19 y.o. y/o male admitted from ER with history of schizophrenia with suicidal thoughts, disorganized thoughts and behavior. He was found to be severely hyperthyroid and consultation was requested. He does report 20 pound weight loss, heat intolerance and tremor. No dysphagia or double vision. He is not able to contribute much to his medical history at this time. Review of previous labs shows he had evidence of elevated TFTs since at least 03/03. He does not report ever being treated for hyperthyroidism. Lab review: 10/21/19 Na 141, K 4.1, creat 0.59,AST 29, ALT 56, WBC 8.81, Hgb 12.2, Hct 38.1, Plt 231k, TSH <0.01, FT4>8.0, FT3-24.5 05/14/18 TSH<0.01, FT4--4.73 03/06/18 TSH <0.01, FT4--3.49 History: Past Medical History: Diagnosis Date ADHD Hyperthyroidism 10/20/2019 Schizo affective schizophrenia (HCC) History reviewed. No pertinent surgical history. Family History Family history unknown: Yes Social History Socioeconomic History Marital status: Single Spouse name: Not on file Number of children: Not on file Years of education: Not on file Highest education level: Not on file Occupational History Not on file Social Needs Financial resource strain: Not on file Food insecurity Worry: Not on file Inability: Not on file Transportation needs Medical: Not on file Non-medical: Not on file Tobacco Use Smoking status: Current Every Day Smoker Packs/day: 1.00 Years: 5.00 Pack years: 5.00 Smokeless tobacco: Never Used Substance and Sexual Activity Alcohol use: Not Currently Drug use: Yes Types: Amphetamines Comment: Patient states I take adderall Sexual activity: Never Lifestyle Physical activity Days per week: Not on file Minutes per session: Not on file Stress: Not on file Relationships Social connections Talks on phone: Not on file Gets together: Not on file Attends restorationist service: Not on file Active member of club or organization: Not on file Attends meetings of clubs or organizations: Not on file Relationship status: Not on file Other Topics Concern Not on file Social History Narrative Not on file Allergy Information: I have reviewed the patient's allergies. Grass pollen-red top, standard and Mite extract Home Medications: Hospital Medications: Scheduled Meds: nicotine 1 patch Transdermal Daily paliperidone 3 mg Oral QAM Continuous Infusions: PRN Meds:.aluminum-magnesium hydroxide-simethicone, benztropine, hydrOXYzine, hydrOXYzine, ibuprofen, magnesium hydroxide, traZODone, ziprasidone Review of Systems: The following system(s) were reviewed and pertinent findings noted: Review of Systems Constitutional: Negative for appetite change, fatigue and unexpected weight change. HENT: Negative for trouble swallowing and voice change. Eyes: Negative for pain, redness and visual disturbance. Respiratory: Negative for shortness of breath. Cardiovascular: Negative for chest pain and palpitations. Gastrointestinal: Negative for constipation and diarrhea. Endocrine: Positive for heat intolerance. Negative for cold intolerance. Musculoskeletal: Negative for neck pain. Neurological: Positive for tremors. Psychiatric/Behavioral: Positive for behavioral problems, confusion and sleep disturbance. The patient is nervous/anxious. Physical Examination: Vital Signs: BP (!) 102/57 Pulse (!) 110 Temp 98.7 F (37.1 C) (Oral) Resp 12 Ht 5' 7 Wt 59 kg (130 lb 1.1 oz) SpO2 95% BMI 20.37 kg/m Physical Exam Constitutional: He is oriented to person, place, and time. He appears well- developed and well-nourished. HENT: Head: Normocephalic and atraumatic. No exophthalmos or lid lag Eyes: Pupils are equal, round, and reactive to light. Conjunctivae and EOM are normal. No scleral icterus. Neck: Normal range of motion. Neck supple. Thyromegaly present. Cardiovascular: Normal rate, regular rhythm and normal heart sounds. No murmur heard. Pulmonary/Chest: Effort normal and breath sounds normal. No respiratory distress. He has no wheezes. He has no rales. Abdominal: He exhibits no distension. Musculoskeletal: General: No edema. Lymphadenopathy: He has cervical adenopathy. Neurological: He is alert and oriented to person, place, and time. No cranial nerve deficit. Skin: Skin is warm. No erythema. Psychiatric: His affect is inappropriate. His speech is tangential. He is hyperactive and actively hallucinating. Thought content is delusional. Thought content is not paranoid. Cognition and memory are not impaired. He expresses inappropriate judgment. Laboratory and Additional Data Reviewed: Laboratory 10/21/19 8:53 AM Transcriptions 10/21/19 8:53 AM No results found for: HGBA1C Glucose (mg/dL) Date Value 10/19/2019 99 Creatinine (mg/dL) Date Value 10/19/2019 0.59 Lab Results Component Value Date CHOL 105 10/19/2019 TRIG 101 10/19/2019 HDL 33 (L) 10/19/2019 LDLCALC 52 10/19/2019 Lab Results Component Value Date TSH <0.01 (L) 10/19/2019 T4, Free Date Value Ref Range Status 10/19/2019 >8.0 (H) 0.7 - 1.7 ng/dL Final Lab Results Component Value Date WBC 8.81 10/19/2019 HGB 12.2 (L) 10/19/2019 HCT 38.1 (L) 10/19/2019 MCV 85.8 10/19/2019 PLT 231 10/19/2019 This SmartLink has not been configured with any valid records. This SmartLink has not been configured with any valid records. Thank you for this consultation, we will continue to follow this patient with you. Cindy Nieto MD Associated Order(s): IP CONSULT TO HOSPITALIST Hospital Medicine Inpatient Consult H&P 10/20/2019 Emerita Santamaria, [facility] Patient: Aba Carlton Date of : 2000 (19 y.o.) PCP: Physician No Referring Provider: Carey Goldman MD Consult: Lanette Cordon MD: Hospitalist assistance with medical management Of note, this patient was admitted to the acute inpatient behavioral health unit following the declaration of a National State of Emergency due to the COVID-19 pandemic, as issued by the street railway line installer on 06/27/2019. ASSESSMENT/PLAN: Principal Problem: Schizophrenia (HCC) Active Problems: Schizoaffective disorder (HCC) Hyperthyroidism Anemia PLAN: Hyperthyroidism - consult endocrinolgy Order T 3 free Anemia - check iron, ferritin, transferrin, B12 and folate. SUBJECTIVE: Chief Complaint/Reason for Visit: sucicidal History of Present Illness: Aba Carlton 19 y.o. male with history of schizophrenia, ETOH abuse,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 - 5.1 mmol/L Chloride 108 98 - 108 mmol/L Bicarbonate 22 21 - 32 mmol/L Anion Gap 13 10 - 20 mmol/L Glucose 93 65 - 99 mg/dL BUN 11 8 - 25 mg/dL Creatinine 0.59 0.50 - 1.30 mg/dL eGFR 145 >=60 mL/min/1.73 m2 BUN/Creatinine Ratio 18.6 10.0 - 20.0 Total Protein 7.2 6.0 - 8.0 g/dL Albumin 3.9 3.2 - 5.2 g/dL Calcium 9.0 8.4 - 10.2 mg/dL Alkaline Phosphatase 224 (H) 40 - 140 U/L AST 19 0 - 45 U/L Total Bilirubin 0.6 0.0 - 1.3 mg/dL ALT 50 14 - 65 U/L TSH Result Value Ref Range TSH <0.01 (L) 0.27 - 4.20 mcIU/mL Drugs of Abuse Screen, Urine Result Value Ref Range Amphetamine Screen, Urine Presumptive Positive (A) None Detected Barbiturate Screen, Urine None Detected None Detected Benzodiazepine Screen, Urine None Detected None Detected Cannabinoid Screen, Urine None Detected None Detected Cocaine, Screen Urine None Detected None Detected Methadone Screen, Urine None Detected None Detected Opiate Screen, Urine None Detected None Detected Oxycodone Screen, Urine None Detected None Detected Alcohol, Medical Result Value Ref Range Alcohol (Medical) <10.00 <10.00 mg/dL CPK NO MB Result Value Ref Range Total CK 90 60 - 225 U/L T4, Free Result Value Ref Range T4, Free 3.9 (H) 0.7 - 1.7 ng/dL Magnesium Level Result Value Ref Range Magnesium 1.8 1.6 - 2.4 mg/dL CBC Auto Differential Result Value Ref Range WBC 10.33 4.50 - 11.00 K/mcL RBC 4.57 4.50 - 5.90 M/mcL Hemoglobin 13.0 (L) 13.5 - 17.5 g/dL Hematocrit 39.2 (L) 41.0 - 53.0 % MCV 85.8 80.0 - 100.0 fL MCH 28.4 26.0 - 34.0 pg MCHC 33.2 31.0 - 37.0 g/dL Platelets 239 150 - 400 K/mcL RDW - CV 14.1 11.6 - 14.8 % MPV 9.5 9.4 - 12.4 fL Neutrophils 57.8 % Lymphocytes 30.8 % Monocytes 9.9 % Eosinophils 0.7 % Basophils 0.4 % IG Percent 0.40 % Neutrophils Abs 5.98 1.70 - 7.00 K/mcL Lymphocytes Abs 3.18 0.90 - 4.00 K/mcL Monocytes Abs 1.02 (H) 0.30 - 0.90 K/mcL Eosinophils Abs 0.07 0.00 - 0.50 K/mcL Basophils Abs 0.04 0.00 - 0.30 K/mcL IG Absolute 0.04 0.00 - 0.30 K/mcL Nucleated RBC 0.0 % Nucleated RBC Abs 0.00 0.00 - 0.00 K/mcL XR Chest 1 View Preliminary Result No acute cardiopulmonary process suspected. [employer] Workstation ID: [id number] EKG 12-lead Date/Time: 11/20/2019 2:50 PM Performed by: Jeanette Pinzon CNP Authorized by: Jeanette Pinzon CNP Rhythm: sinus rhythm and sinus tachycardia BPM: 133 Conduction: conduction normal ST Segments: ST segments normal normal MS interval normal QRS interval normal QT interval MS Interval: 150 QRS Interval: 98 QT Interval: 290 Clinical impression: sinus tachycardia Comments: Noted sinus tachycardia normal axis no ST elevation or depression noted at this time MDM Number of Diagnoses or Management Options Diagnosis management comments: At this time will place patient on cost estimating engineer, place IV give 1 saline bolus thousand cc, CBC, CMP, troponin, TSH, CPK,CXR, urinalysis and drug screen will reevaluate shortly. Amount and/or Complexity of Data Reviewed Clinical lab tests: ordered Tests in the radiology section of CPT : ordered ED Course as of Nov 19 1510 Alysa Nov 20, 2019 1305 Called charge nurse and requested that patient be moved to [place] side as I believe his tachycardia may be related to thyroid storm. [DC] 1402 Amphetamine Screen, Urine(!): Presumptive Positive [DC] 1402 TSH(!): <0.01 [DC] 1405 Discussed propanolol dosage with pharmacist. At this point patient's heart rate is down to 109. We will start her 40 mg we will add another 40 should his rate not begin to slow shortly, or patient's blood pressure decompensates [DC] 1448 FREE T4(!): 3.9 [DC] 1457 SARS-CoV-2: Not Detected [DC] 1507 Spoke with hospitalist service. Patient has been accepted for admission to telemetry. [DC] ED Course User Index [DC] Jeanette Pinzon CNP . Clinical Impression: 1. Thyrotoxicosis with thyrotoxic crisis, unspecified thyrotoxicosis type 2. Psychotic episode (HCC) 3. Methamphetamine abuse (HCC) ED Disposition ED Disposition Condition Comment Hospitalize Follow-up Information Follow-up information has not been specified. Contact information for after-discharge care Follow-up information has not been specified. Jeanette Pinzon CNP 11/20/19 1510 [facility] arrived, reports patient was released yesterday for psychiatric admission. Has not had thyroid medication since yesterday. Patient became diaphoretic, heart rate reaching as high as 150 bpm, became less responsive. Being transferred to medical bed following evaluation by KATY Benitez. Patient reports he was trying get his ID to take off to [place]. Reports he went to grandparents house to get money to get new ID. Did not like the way his grandpa was treating him. Patient was brought in by [place] PD, PD reports patient stole car from residential grandmothers house and drove to other grandparents house. PD reports grandpa was not present at the scene, and car was not at the location patient was picked up at. documented in this encounter ED PROVIDER NOTE [facility] EMERGENCY DEPARTMENT NAME: Aba Carlton AGE: 19 y.o. : 2000 VISIT DATE: 11/06/2019 CSN: [id number] PCP: Physician No Chief Complaint Patient presents with increased heart rate HPI Patient is a 19-year-old male with history of psychiatric disorder including schizophrenia who was evaluated in the ED few hours ago for increased heart rate and dehydration and his initial pulse rate was 122 bmp and patient was given a liter of normal saline labs were ordered and patient reports improvement in his symptoms and he left AGAINST MEDICAL ADVICE. Patient Comes back saying he wants the work-up to be complete as he had refuses chest x-ray is now willing to get the chest x-ray done. His vitals are stable he is afebrile nontoxic looking. Denies chest pain pressure palpitation shortness of breath or difficulty breathing and denies cough or fever but said that he has been walking outside the street as he is homeless. Past Medical History: Diagnosis Date ADHD Hypertension Hyperthyroidism 10/20/2019 Schizo affective schizophrenia (HCC) Schizoaffective disorder (HCC) 10/20/2019 History reviewed. No pertinent surgical history. Family History Family history unknown: Yes Social History Socioeconomic History Marital status: Single Spouse name: Not on file Number of children: Not on file Years of education: Not on file Highest education level: Not on file Occupational History Not on file Social Needs Financial resource strain: Not on file Food insecurity Worry: Not on file Inability: Not on file Transportation needs Medical: Not on file Non-medical: Not on file Tobacco Use Smoking status: Current Every Day Smoker Packs/day: 1.00 Years: 5.00 Pack years: 5.00 Smokeless tobacco: Never Used Substance and Sexual Activity Alcohol use: Not Currently Drug use: Yes Types: Amphetamines Comment: Patient states I take adderall Sexual activity: Never Lifestyle Physical activity Days per week: Not on file Minutes per session: Not on file Stress: Not on file Relationships Social connections Talks on phone: Not on file Gets together: Not on file Attends restorationist service: Not on file Active member of club or organization: Not on file Attends meetings of clubs or organizations: Not on file Relationship status: Not on file Other Topics Concern Not on file Social History Narrative Not on file Previous Medications Medication Sig methIMAzole (TAPAZOLE) 10 MG tablet Take 4 (four) tablets (40 mg total) by mouth daily . nicotine (NICODERM CQ) 21 mg/[address] 1 (one) patch on the skin daily Start: 10/31/19. propranoloL (INDERAL) 10 MG tablet Take 1 (one) tablet (10 mg total) by mouth every 12 (twelve) hours . Allergies Allergen Reactions Grass Pollen-Red Top, Standard Other (See Comments) Watery eyes and sniffles Mite Extract Other (See Comments) Watery eyes and sniffles Review of Systems All other systems reviewed and are negative. Patient Vitals for the past 24 hrs: BP SpO2 11/06/19 0500 122/66 97 % Physical Exam Vitals signs and nursing note reviewed. Constitutional: Appearance: Normal appearance. He is well-developed. HENT: Head: Normocephalic and atraumatic. Nose: Nose normal. Eyes: General: No scleral icterus. Right eye: No discharge. Left eye: No discharge. Conjunctiva/sclera: Conjunctivae normal. Cardiovascular: Rate and Rhythm: Regular rhythm. Pulses: Normal pulses. Heart sounds: Normal heart sounds. No murmur. Pulmonary: Effort: Pulmonary effort is normal. No respiratory distress. Breath sounds: Normal breath sounds. No stridor. Abdominal: General: Abdomen is flat. Bowel sounds are normal. There is no distension. Palpations: Abdomen is soft. There is no mass. Musculoskeletal: Right lower leg: He exhibits no swelling. No edema. Left lower leg: He exhibits no swelling. No edema. Skin: Findings: No rash. Neurological: Mental Status: He is alert and oriented to person, place, and time. Psychiatric: Behavior: Behavior normal. Laboratory & Radiographic Imaging (if done): No results found for this visit on 11/06/19. XR Chest 1 View Final Result - Minimal bilateral peribronchial thickening and mild interstitial accentuation in the perihilar areas. The differential includes bronchitis. NO pneumonia and/or significant atelectasis. Workstation ID: [id number] Procedures MDM Patient is a 19-year-old male history of schizophrenia who is homeless presents to the ED complaints concerning for dehydration due to decreased oral intake. Patient was evaluated earlier today blood work was reviewed discussed with patient is currently on methimazole for thyroid said he has been compliant with his medication chest x-ray no pneumonia. Initial evaluation patient was given a liter normal saline reports symptomatic improvement. . Clinical Impression: No diagnosis found. ED Disposition None Follow-up Information Follow-up information has not been specified. Contact information for after-discharge care Follow-up information has not been specified. Valerie Shields MD 11/06/19 0543 Patient here previously tonight, left AMA. Returns with complaint of increased heartrate. documented in this encounter ED PROVIDER NOTE [facility] EMERGENCY DEPARTMENT NAME: Aba Carlton AGE: 19 y.o. : 2000 VISIT DATE: 10/19/2019 CSN: [id number] PCP: Physician No Chief Complaint Patient presents with Suicidal Patient is a 19-year-old male who is brought to the emergency department by [facility] deputy for evaluation of bizarre behavior and suicidal thoughts. The patient himself contacted 911 request that deputies respond stating that he was going to commit suicide by cutting his wrist. Patient has a history of schizophrenia and ADHD. The patient is awake and alert on arrival in the emergency department, however is exhibiting acute psychosis which may be related to his schizophrenia versus substance abuse. Patient does not cooperate with my interview and his answers to me are inconsistent, incomplete or not provided at all. The patient demonstrates complete avoidance which alternates with spontaneous laughter. The patient appears to be in no physical distress. Vital signs are noted to be within normal limits. An application for emergency admission was completed by the [facility] deputy. Past Medical History: Diagnosis Date ADHD Schizo affective schizophrenia (HCC) History reviewed. No pertinent surgical history. History reviewed. No pertinent family history. Social History Socioeconomic History Marital status: Single Spouse name: Not on file Number of children: Not on file Years of education: Not on file Highest education level: Not on file Occupational History Not on file Social Needs Financial resource strain: Not on file Food insecurity Worry: Not on file Inability: Not on file Transportation needs Medical: Not on file Non-medical: Not on file Tobacco Use Smoking status: Current Every Day Smoker Packs/day: 1.00 Smokeless tobacco: Never Used Substance and Sexual Activity Alcohol use: Not Currently Drug use: Never Sexual activity: Not on file Lifestyle Physical activity Days per week: Not on file Minutes per session: Not on file Stress: Not on file Relationships Social connections Talks on phone: Not on file Gets together: Not on file Attends restorationist service: Not on file Active member of club or organization: Not on file Attends meetings of clubs or organizations: Not on file Relationship status: Not on file Other Topics Concern Not on file Social History Narrative Not on file Previous Medications Medication Sig paliperidone (INVEGA) 3 MG 24 hr tablet Take 3 mg by mouth every morning . No Known Allergies Review of Systems Constitutional: Negative. HENT: Negative. Eyes: Negative. Respiratory: Negative. Cardiovascular: Negative. Gastrointestinal: Negative. Endocrine: Negative. Genitourinary: Negative. Musculoskeletal: Negative. Skin: Negative. Allergic/Immunologic: Negative. Neurological: Negative. Hematological: Negative. Psychiatric/Behavioral: Positive for agitation, confusion, dysphoric mood, hallucinations and suicidal ideas. The patient is nervous/anxious. Patient Vitals for the past 24 hrs: BP Temp Temp src Pulse Resp SpO2 Height Weight 10/19/19 2240 126/65 98.3 F (36.8 C) Oral 98 18 97 % 5' 7 63 kg (139 lb) Physical Exam Vitals signs and nursing note reviewed. Constitutional: Appearance: Normal appearance. He is well-developed and normal weight. HENT: Head: Normocephalic and atraumatic. Right Ear: External ear normal. Left Ear: External ear normal. Nose: Nose normal. Mouth/Throat: Mouth: Mucous membranes are moist. Pharynx: Oropharynx is clear. Eyes: General: Lids are normal. Conjunctiva/sclera: Conjunctivae normal. Pupils: Pupils are equal, round, and reactive to light. Neck: Musculoskeletal: Normal range of motion and neck supple. Cardiovascular: Rate and Rhythm: Normal rate and regular rhythm. Pulses: Normal pulses. Heart sounds: Normal heart sounds. Pulmonary: Effort: Pulmonary effort is normal. Breath sounds: Normal breath sounds. Abdominal: General: Abdomen is flat. Bowel sounds are normal. Palpations: Abdomen is soft. Musculoskeletal: Normal range of motion. Skin: General: Skin is warm and dry. Capillary Refill: Capillary refill takes less than 2 seconds. Neurological: General: No focal deficit present. Mental Status: He is alert and oriented to person, place, and time. Patient is awake, alert and oriented in no acute distress. Patient is not cooperative with the interview as noted previously. Patient is physically cooperative with staff. Laboratory & Radiographic Imaging (if done): Results for orders placed or performed during the hospital encounter of 10/19/19 COVID-19, Molecular Result Value Ref Range SARS-CoV-2 Not Detected Not Detected Lavender Top Result Value Ref Range Extra Tube Hold for add-ons. Mint Green Top Result Value Ref Range Extra Tube Hold for add-ons. Gold Top Result Value Ref Range Extra Tube Hold for add-ons. Light Blue Top Result Value Ref Range Extra Tube Hold for add-ons. Maynard Top Result Value Ref Range Extra Tube Hold for add-ons. Alcohol, Medical Result Value Ref Range Alcohol (Medical) <10.00 <10.00 mg/dL Urine Drug Screen Result Value Ref Range Amphetamine Screen, Urine Presumptive Positive (A) None Detected Barbiturate Screen, Urine None Detected None Detected Benzodiazepine Screen, Urine None Detected None Detected Cannabinoid Screen, Urine None Detected None Detected Cocaine, Screen Urine None Detected None Detected Methadone Screen, Urine None Detected None Detected Opiate Screen, Urine None Detected None Detected Oxycodone Screen, Urine None Detected None Detected No orders to display Procedures MDM Number of Diagnoses or Management Options Other schizophrenia (HCC): Diagnosis management comments: Physical exam findings are unremarkable to the extent that the patient allowed me to evaluate him. Tox screen is positive for amphetamine and EtOH level is negative. SARS-CoV-2 culture is negative. Patient is medically clear for psychiatric evaluation. Consult order was placed with the [facility] Telemed[facility] HAIRSPRING ADJUSTER for psychiatric evaluation of the patient. The addiction social worker contacted me at [phone] to report that she encountered similar behavior that I experienced with the patient. She does state that even though her assessment was not as thorough as she would have liked, the patient obviously meets criteria for admission and states that Dr. Goldman has accepted the patient for admission to behavioral health unit. CLINICAL IMPRESSION: Schizophrenia Amount and/or Complexity of Data Reviewed Clinical lab tests: ordered and reviewed Discuss the patient with other providers: yes Patient Progress Patient progress: stable The patient has been informed that they may have pre-hypertension or hypertension based on a blood pressure reading in the Emergency Department. I recommend that the patient call the primary care provider listed on their discharge instructions or a physician of their choice as soon as possible to arrange follow-up in the next 4 weeks for further evaluation of possible pre-hypertension or hypertension. . Clinical Impression: 1. Other schizophrenia (HCC) ED Disposition ED Disposition Condition Comment Hospitalize Recommended Level of Care: Med Surg Phone call required?: Yes Comment: Dr. Goldman Follow-up Information Follow-up information has not been specified. Contact information for after-discharge care Follow-up information has not been specified. Lee Epps PA-C 10/20/19 [address] Goldman, provider precision machine operator to complete referral but there was no answer. Will continue to try to reach provider for admission. 3:10AM- Spoke with Dr. Goldman, who is agreeable to admission at this time. REGISTRATION IN TALKING WITH PATIENT AT THIS TIME. PATIENT STATES THAT HE WAS GOING TO CUT HIS WRISTS TONIGHT. documented in this encounter HOSPITALIST JASON CHERRY ATTEMPTING TO HAVE A CONVERSATION WITH PATIENT. REPORT GIVEN TO CRISTAL VELEZ PT RESTING IN BED WATCHING TV. RESP EVEN AND UNLABORED. NO DISTRESS OBSERVED. NO NEEDS EXPRESSED AT THIS TIME. PER DR SHIELDS, REPEAT CPK NOW THAT FLUIDS ARE COMPLETE PT PROVIDED MEAL TRAY AT THIS TIME; THIS RN REMAINS CARTSIDE WITH PT 1:1 FLUIDS INFUSE THIS RN REMAINS CARTSIDE 1:1 SITTER FLUIDS INFUSE VIA IV. PT REMAINS CALM AND COOPERATIVE LAYING ON COT. WARM BLANKETS PROVIDED TO PT THIS RN CARTSIDE 1:1 SITTER FLUIDS ARE ADMINISTERED VIA IV. PT REMAINS CALM AND COOPERATIVE AT THIS TIME. PT RESTING ON BED WATCHING TV. Celia T RN to sit 1:1 with pt while 1000ml bolus is infusing. Dr SHIELDS NOTIFIED OF PT LAB RESULTS. STATES HE WILL NEED IV FLUIDS BEFORE HE IS MEDICALLY CLEARED FOR [place]. ASHLEY BEE NOTIFIED PT WILL NEED 1:1 SITTER D/T NEEDING IV FLUIDS. SULAIMAN TEJADA NOTIFIED THAT PT IS NOT MEDICALLY CLEARED AT THIS TIME Pt at desk speaking with grandmother on phone. Pt at desk requesting popKwasiel PSA to provide beverage. Pt ambulated back to room. This RN ordered meal tray per patient request. No other needs voiced at this time. Pt lying in bed watching tv. resp even and unlabored. No needs expressed at this time. Pharmacy [facility] CLINICAL DIETETIC TECHNICIAN AT BEDSIDE PT AMBULATED TO RR. PT AMBULATED BACK TO ROOM. PT CALM AND COOPERATIVE SINCE ARRIVAL. RESP EVEN AND UNLABORED. NO NEEDS EXPRESSED AT THIS TIME. ED PROVIDER NOTE [facility] EMERGENCY DEPARTMENT NAME: Aba Carlton AGE: 19 y.o. : 2000 VISIT DATE: 12/26/2019 CSN: [id number] PCP: Adrienne Arcos CNP Chief Complaint Patient presents with Psychiatric Evaluation HPI Patient is a 19-year-old male with a history of schizophrenia brought to the ED by [facility] for placement to [facility] for further psychiatric management. Reports from [facility] is that patient does have a history of schizophrenia he is unable to care for himself paperwork noted that patient was probated by a laborer/grade check to go to [facility] for further management as patient is unable/incompetent to care for himself. Past Medical History: Diagnosis Date ADHD Hypertension Hyperthyroidism 10/20/2019 Hyperthyroidism Hyperthyroidism Schizo affective schizophrenia (HCC) Schizoaffective disorder (HCC) 10/20/2019 History reviewed. No pertinent surgical history. Family History Family history unknown: Yes Social History Socioeconomic History Marital status: Single Spouse name: Not on file Number of children: Not on file Years of education: Not on file Highest education level: Not on file Occupational History Not on file Social Needs Financial resource strain: Not on file Food insecurity Worry: Not on file Inability: Not on file Transportation needs Medical: Not on file Non-medical: Not on file Tobacco Use Smoking status: Current Every Day Smoker Packs/day: 1.00 Years: 5.00 Pack years: 5.00 Smokeless tobacco: Never Used Substance and Sexual Activity Alcohol use: Not Currently Drug use: Yes Types: Marijuana Comment: I don't even smoke pot monthly Sexual activity: Not Currently Lifestyle Physical activity Days per week: Not on file Minutes per session: Not on file Stress: Not on file Relationships Social connections Talks on phone: Not on file Gets together: Not on file Attends restorationist service: Not on file Active member of club or organization: Not on file Attends meetings of clubs or organizations: Not on file Relationship status: Not on file Other Topics Concern Not on file Social History Narrative Not on file Previous Medications Medication Sig divalproex (DEPAKOTE ER) 500 MG 24 hr tablet Take 1 (one) tablet (500 mg total) by mouth 2 (two) times a day . methIMAzole (TAPAZOLE) 10 MG tablet Take 3 (three) tablets (30 mg total) by mouth daily . paliperidone (INVEGA) 6 MG 24 hr tablet Take 1 (one) tablet (6 mg total) by mouth daily Start: 12/19/19. [DISCONTINUED] paliperidone (INVEGA) 6 MG 24 hr tablet Take 6 mg by mouth every morning . Allergies Allergen Reactions Grass Pollen-Red Top, Standard Other (See Comments) Watery eyes and sniffles Mite Extract Other (See Comments) Watery eyes and sniffles Review of Systems All other systems reviewed and are negative. Patient Vitals for the past 24 hrs: BP Temp Pulse Resp SpO2 Weight 12/26/19 1556 124/89 98.9 F (37.2 C) (!) 111 16 97 % 67.1 kg (148 lb) Physical Exam Vitals signs and nursing note reviewed. Constitutional: Appearance: He is well-developed. HENT: Head: Normocephalic and atraumatic. Eyes: General: No scleral icterus. Conjunctiva/sclera: Conjunctivae normal. Cardiovascular: Rate and Rhythm: Regular rhythm. Heart sounds: No murmur. Pulmonary: Effort: Pulmonary effort is normal. No respiratory distress. Musculoskeletal: Right lower leg: He exhibits no swelling. No edema. Left lower leg: He exhibits no swelling. No edema. Skin: Findings: No rash. Neurological: Mental Status: He is alert and oriented to person, place, and time. Psychiatric: Thought Content: Thought content includes suicidal ideation. Thought content includes suicidal plan. Laboratory & Radiographic Imaging (if done): Results for orders placed or performed during the hospital encounter of 12/26/19 COVID-19, Molecular Specimen: Nasopharyngeal; Swab Result Value Ref Range SARS-CoV-2 Not Detected Not Detected Urine Drug Screen Result Value Ref Range Amphetamine Screen, Urine None Detected None Detected Barbiturate Screen, Urine None Detected None Detected Benzodiazepine Screen, Urine None Detected None Detected Cannabinoid Screen, Urine None Detected None Detected Cocaine, Screen Urine None Detected None Detected Methadone Screen, Urine None Detected None Detected Opiate Screen, Urine None Detected None Detected Oxycodone Screen, Urine None Detected None Detected Alcohol, Medical Result Value Ref Range Alcohol (Medical) <10.00 <10.00 mg/dL Lavender Top Result Value Ref Range Extra Tube Hold for add-ons. Mint Green Top Result Value Ref Range Extra Tube Hold for add-ons. Gold Top Result Value Ref Range Extra Tube Hold for add-ons. Light Blue Top Result Value Ref Range Extra Tube Hold for add-ons. CPK NO MB Result Value Ref Range Total CK 1,710 (H) 60 - 225 U/L Hepatic Function Panel (LFT) Result Value Ref Range Total Protein 7.5 6.0 - 8.0 g/dL Albumin 3.9 3.2 - 5.2 g/dL Total Bilirubin 0.2 0.0 - 1.3 mg/dL Bilirubin, Direct <0.1 0.0 - 0.4 mg/dL Alkaline Phosphatase 221 (H) 40 - 140 U/L AST 28 0 - 45 U/L ALT 30 14 - 65 U/L TSH with Reflex Free T4 Result Value Ref Range TSH <0.01 (L) 0.27 - 4.20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 Participation in group activities Outcome: Partially Met Problem: Plan for Discharge Goal: Knowledge of medication management Outcome: Partially Met Goal: Knowledge of need for follow-up care Outcome: Partially Met Problem: Pain Goal: Manage acute pain Outcome: Partially Met Goal: Manage chronic pain Outcome: Partially Met Goal: Reduced pain sensation Outcome: Partially Met Goal: Achievement of comfort function goal Outcome: Partially Met Problem: Cognitive-Perceptual Pattern - Impaired Goal: Improved thought processes Outcome: Partially Met Goal: Improved environmental perceptions Outcome: Met Problem: Coping - Ineffective, Family Goal: Effective coping Outcome: Partially Met Problem: Social Interaction - Impaired Goal: Appropriate social interaction Outcome: Met Goal: Participation in group activities Outcome: Partially Met Problem: Violence - Risk of, Self/Other-Directed Goal: Absence of violence Outcome: Met Problem: Plan for Discharge Goal: Knowledge of discharge plan and instructions Outcome: Partially Met Goal: Knowledge of medication management Outcome: Partially Met Goal: Knowledge of need for follow-up care Outcome: Partially Met Problem: Pain Goal: Manage acute pain Outcome: Met Goal: Manage chronic pain Outcome: Met Goal: Reduced pain sensation Outcome: Met Goal: Achievement of comfort function goal Outcome: Met Behavioral Health Treatment Plan Update Date: 12/10/2019 Time: 3:38 PM Patient Name: Aba Carlton Date of : 2000 Sex: Male Patient Active Problem List Diagnosis Date Noted Psychoactive substance abuse ([facility]) 11/13/2019 Schizoaffective disorder, bipolar type ([facility]) 10/20/2019 Hyperthyroidism 10/20/2019 Diagnosis [place] I: Schizoaffective Disorder [place] II: Deferred [place] III: Patient Active Problem List Diagnosis Date Noted Psychoactive substance abuse ([facility]) 11/13/2019 Schizoaffective disorder, bipolar type ([facility]) 10/20/2019 Hyperthyroidism 10/20/2019 [place] IV: other psychosocial or environmental problems [place] V: 31-40 impairment in reality testing Expected Discharge Date: [place]OS: 5-7 Precautions Precautions: Suicide Patient Presenting Issues: Patient's Primary Presenting Issue Patient's Primary Presenting Issue: Addiction Psychosis Symptoms: Paranoia Psychosis Treatment Goals: Control psychosis Days To Improvement Of Goal: 5-7 Psychosis Interventions: Medication management/evaluation, Medication education, Handouts psychoeducation, Individual psychoeducation, Group psychoeducation Mood Instability Symptoms: Mood Swings Mood Instability Treatment Goals: Stabilize mood Days To Improvement Of Goal: 5-7 Mood Instability Interventions: Medication management/evaluation, Medication education, Individual psychoeducation, Handouts psychoeducation, Group psychoeduction Inability to Care For Self Treatment Goals: Improve functioning level Days To Improvement Of Goal: 5-7 Inability To Care For Self Interventions: Medication education, Medication management/evaluation, Handouts psychoeducation, Individual psychoeducation, Group psychoeduction Addiction Types: Stimulants, Cannabis Addiction Treatment Goals: Improvement of presenting issues Days To Improvement Of Goal: 5-7 Addiction Interventions: Medication management/evaluation, Medication education, Handouts psychoeducation, Individual psychoeducation, Group psychoeduction Precautions Precautions: Suicide Seclusion/Restraint Date N/A Interventions to reduce Seclusion/Restraint N/A Discharge Needs Anticipated Facility Type: Psychiatric aftercare, Substance abuse treatment Criteria For Discharge Criteria For Discharge: Maximum benefit obtained Additional Comments: Patient has been given an emergency guardian, Benitez Hitchcock, and [employer] is working on finding him another living situation more appropriate for him than grandparents. Patient has been told and is okay with this. Patient still experiencing periods of delusional thinking and responding to internal stimuli as reported by staff though patient continues to deny these. Physician, Registered Nurse, Offshore [employer] Turbine Technician, Adjunct Therapist included in treatment team discussion. Treatment team members present Dr. Sheldon MD; IAN Tena, [employer] ADJUSTER-S Patient Signature Date Patient's Response To Treatment Plan: Offshore [employer] Turbine Technician Signature Date Problem: Cognitive-Perceptual Pattern - Impaired Goal: Improved thought processes Outcome: Partially Met Goal: Improved environmental perceptions Outcome: Partially Met Problem: Coping - Ineffective, Family Goal: Effective coping Outcome: Partially Met Problem: Social Interaction - Impaired Goal: Appropriate social interaction Outcome: Partially Met Goal: Participation in group activities Outcome: Partially Met Problem: Violence - Risk of, Self/Other-Directed Goal: Absence of violence Outcome: Partially Met Problem: Plan for Discharge Goal: Knowledge of discharge plan and instructions Outcome: Partially Met Goal: Knowledge of medication management Outcome: Partially Met Goal: Knowledge of need for follow-up care Outcome: Partially Met Problem: Pain Goal: Manage acute pain Outcome: Partially Met Goal: Manage chronic pain Outcome: Partially Met Goal: Reduced pain sensation Outcome: Partially Met Goal: Achievement of comfort function goal Outcome: Partially Met Problem: Violence - Risk of, Self/Other-Directed Goal: Absence of violence Outcome: Met Problem: Cognitive-Perceptual Pattern - Impaired Goal: Improved thought processes Outcome: Partially Met Goal: Improved environmental perceptions Outcome: Partially Met Problem: Coping - Ineffective, Family Goal: Effective coping Outcome: Partially Met Problem: Social Interaction - Impaired Goal: Appropriate social interaction Outcome: Partially Met Problem: Pain Goal: Manage acute pain Outcome: Partially Met Goal: Manage chronic pain Outcome: Partially Met Goal: Reduced pain sensation Outcome: Partially Met Goal: Achievement of comfort function goal Outcome: Partially Met Problem: Social Interaction - Impaired Goal: Participation in group activities Outcome: Not Addressed Problem: Plan for Discharge Goal: Knowledge of discharge plan and instructions Outcome: Not Addressed Goal: Knowledge of medication management Outcome: Not Addressed Goal: Knowledge of need for follow-up care Outcome: Not Addressed Problem: Cognitive-Perceptual Pattern - Impaired Goal: Improved thought processes Outcome: Not Met Goal: Improved environmental perceptions Outcome: Not Met Problem: Coping - Ineffective, Family Goal: Effective coping Outcome: Not Met Problem: Social Interaction - Impaired Goal: Appropriate social interaction Outcome: Not Met Goal: Participation in group activities Outcome: Not Met Problem: Violence - Risk of, Self/Other-Directed Goal: Absence of violence Outcome: Not Met Problem: Plan for Discharge Goal: Knowledge of discharge plan and instructions Outcome: Not Met Goal: Knowledge of medication management Outcome: Not Met Goal: Knowledge of need for follow-up care Outcome: Not Met Problem: Pain Goal: Manage acute pain Outcome: Not Met Goal: Manage chronic pain Outcome: Not Met Goal: Reduced pain sensation Outcome: Not Met Goal: Achievement of comfort function goal Outcome: Not Met Problem: Cognitive-Perceptual Pattern - Impaired Goal: Improved thought processes Outcome: Partially Met Goal: Improved environmental perceptions Outcome: Partially Met Problem: Coping - Ineffective, Family Goal: Effective coping Outcome: Not Addressed Problem: Social Interaction - Impaired Goal: Appropriate social interaction Outcome: Partially Met Goal: Participation in group activities Outcome: Partially Met Problem: Violence - Risk of, Self/Other-Directed Goal: Absence of violence Outcome: Met Problem: Plan for Discharge Goal: Knowledge of discharge plan and instructions Outcome: Not Addressed Goal: Knowledge of medication management Outcome: Not Addressed Goal: Knowledge of need for follow-up care Outcome: Not Addressed Problem: Pain Goal: Manage acute pain Outcome: Partially Met Goal: Manage chronic pain Outcome: Partially Met Goal: Reduced pain sensation Outcome: Partially Met Goal: Achievement of comfort function goal Outcome: Partially Met Problem: Cognitive-Perceptual Pattern - Impaired Goal: Improved thought processes Outcome: Partially Met Goal: Improved environmental perceptions Outcome: Partially Met Problem: Coping - Ineffective, Family Goal: Effective coping Outcome: Partially Met Problem: Social Interaction - Impaired Goal: Appropriate social interaction Outcome: Partially Met Goal: Participation in group activities Outcome: Partially Met Problem: Violence - Risk of, Self/Other-Directed Goal: Absence of violence Outcome: Partially Met Problem: Plan for Discharge Goal: Knowledge of discharge plan and instructions Outcome: Partially Met Goal: Knowledge of medication management Outcome: Partially Met Goal: Knowledge of need for follow-up care Outcome: Partially Met Problem: Pain Goal: Manage acute pain Outcome: Partially Met Goal: Manage chronic pain Outcome: Partially Met Goal: Reduced pain sensation Outcome: Partially Met Goal: Achievement of comfort function goal Outcome: Partially Met Problem: Violence - Risk of, Self/Other-Directed Goal: Absence of violence Outcome: Met Problem: Cognitive-Perceptual Pattern - Impaired Goal: Improved thought processes Outcome: Partially Met Goal: Improved environmental perceptions Outcome: Partially Met Problem: Coping - Ineffective, Family Goal: Effective coping Outcome: Partially Met Problem: Social Interaction - Impaired Goal: Appropriate social interaction Outcome: Partially Met Goal: Participation in group activities Outcome: Partially Met Problem: Plan for Discharge Goal: Knowledge of discharge plan and instructions Outcome: Partially Met Goal: Knowledge of medication management Outcome: Partially Met Goal: Knowledge of need for follow-up care Outcome: Partially Met Problem: Pain Goal: Manage acute pain Outcome: Partially Met Goal: Manage chronic pain Outcome: Partially Met Goal: Reduced pain sensation Outcome: Partially Met Goal: Achievement of comfort function goal Outcome: Partially Met Problem: Cognitive-Perceptual Pattern - Impaired Goal: Improved thought processes Outcome: Partially Met Goal: Improved environmental perceptions Outcome: Partially Met Problem: Coping - Ineffective, Family Goal: Effective coping Outcome: Partially Met Problem: Social Interaction - Impaired Goal: Appropriate social interaction Outcome: Partially Met Goal: Participation in group activities Outcome: Partially Met Problem: Violence - Risk of, Self/Other-Directed Goal: Absence of violence Outcome: Partially Met Problem: Plan for Discharge Goal: Knowledge of discharge plan and instructions Outcome: Partially Met Goal: Knowledge of medication management Outcome: Partially Met Goal: Knowledge of need for follow-up care Outcome: Partially Met Problem: Pain Goal: Manage acute pain Outcome: Partially Met Goal: Manage chronic pain Outcome: Partially Met Goal: Reduced pain sensation Outcome: Partially Met Goal: Achievement of comfort function goal Outcome: Partially Met Problem: Cognitive-Perceptual Pattern - Impaired Goal: Improved thought processes Outcome: Partially Met Goal: Improved environmental perceptions Outcome: Partially Met Problem: Coping - Ineffective, Family Goal: Effective coping Outcome: Partially Met Problem: Social Interaction - Impaired Goal: Appropriate social interaction Outcome: Partially Met Goal: Participation in group activities Outcome: Partially Met Problem: Violence - Risk of, Self/Other-Directed Goal: Absence of violence Outcome: Partially Met Problem: Plan for Discharge Goal: Knowledge of discharge plan and instructions Outcome: Partially Met Goal: Knowledge of medication management Outcome: Partially Met Goal: Knowledge of need for follow-up care Outcome: Partially Met Problem: Pain Goal: Manage acute pain Outcome: Partially Met Goal: Manage chronic pain Outcome: Partially Met Goal: Reduced pain sensation Outcome: Partially Met Goal: Achievement of comfort function goal Outcome: Partially Met Problem: Cognitive-Perceptual Pattern - Impaired Goal: Improved thought processes Outcome: Partially Met Goal: Improved environmental perceptions Outcome: Partially Met Problem: Coping - Ineffective, Family Goal: Effective coping Outcome: Partially Met Problem: Social Interaction - Impaired Goal: Appropriate social interaction Outcome: Partially Met Goal: Participation in group activities Outcome: Partially Met Problem: Violence - Risk of, Self/Other-Directed Goal: Absence of violence Outcome: Partially Met Problem: Plan for Discharge Goal: Knowledge of discharge plan and instructions Outcome: Partially Met Goal: Knowledge of medication management Outcome: Partially Met Goal: Knowledge of need for follow-up care Outcome: Partially Met Problem: Pain Goal: Manage acute pain Outcome: Partially Met Goal: Manage chronic pain Outcome: Partially Met Goal: Reduced pain sensation Outcome: Partially Met Goal: Achievement of comfort function goal Outcome: Partially Met Problem: Violence - Risk of, Self/Other-Directed Goal: Absence of violence Outcome: Met Problem: Cognitive-Perceptual Pattern - Impaired Goal: Improved thought processes Outcome: Partially Met Goal: Improved environmental perceptions Outcome: Partially Met Problem: Coping - Ineffective, Family Goal: Effective coping Outcome: Partially Met Problem: Social Interaction - Impaired Goal: Appropriate social interaction Outcome: Partially Met Goal: Participation in group activities Outcome: Partially Met Problem: Plan for Discharge Goal: Knowledge of discharge plan and instructions Outcome: Partially Met Goal: Knowledge of medication management Outcome: Partially Met Goal: Knowledge of need for follow-up care Outcome: Partially Met Problem: Pain Goal: Manage acute pain Outcome: Partially Met Goal: Manage chronic pain Outcome: Partially Met Goal: Reduced pain sensation Outcome: Partially Met Goal: Achievement of comfort function goal Outcome: Partially Met Problem: Violence - Risk of, Self/Other-Directed Goal: Absence of violence Outcome: Met Problem: Social Interaction - Impaired Goal: Appropriate social interaction Outcome: Not Met Problem: Cognitive-Perceptual Pattern - Impaired Goal: Improved thought processes Outcome: Partially Met Goal: Improved environmental perceptions Outcome: Partially Met Problem: Coping - Ineffective, Family Goal: Effective coping Outcome: Partially Met Problem: Social Interaction - Impaired Goal: Participation in group activities Outcome: Partially Met Problem: Plan for Discharge Goal: Knowledge of medication management Outcome: Partially Met Goal: Knowledge of need for follow-up care Outcome: Partially Met Problem: Pain Goal: Manage acute pain Outcome: Partially Met Goal: Manage chronic pain Outcome: Partially Met Goal: Reduced pain sensation Outcome: Partially Met Goal: Achievement of comfort function goal Outcome: Partially Met Problem: Plan for Discharge Goal: Knowledge of discharge plan and instructions Outcome: Not Addressed Problem: Cognitive-Perceptual Pattern - Impaired Goal: Improved thought processes Outcome: Partially Met Goal: Improved environmental perceptions Outcome: Partially Met Problem: Coping - Ineffective, Family Goal: Effective coping Outcome: Partially Met Problem: Social Interaction - Impaired Goal: Appropriate social interaction Outcome: Partially Met Goal: Participation in group activities Outcome: Partially Met Problem: Violence - Risk of, Self/Other-Directed Goal: Absence of violence Outcome: Partially Met Problem: Plan for Discharge Goal: Knowledge of discharge plan and instructions Outcome: Partially Met Goal: Knowledge of medication management Outcome: Partially Met Goal: Knowledge of need for follow-up care Outcome: Partially Met Problem: Pain Goal: Manage acute pain Outcome: Partially Met Goal: Manage chronic pain Outcome: Partially Met Goal: Reduced pain sensation Outcome: Partially Met Goal: Achievement of comfort function goal Outcome: Partially Met Problem: Cognitive-Perceptual Pattern - Impaired Goal: Improved thought processes Outcome: Partially Met Goal: Improved environmental perceptions Outcome: Partially Met Problem: Coping - Ineffective, Family Goal: Effective coping Outcome: Partially Met Problem: Social Interaction - Impaired Goal: Appropriate social interaction Outcome: Partially Met Goal: Participation in group activities Outcome: Partially Met Problem: Violence - Risk of, Self/Other-Directed Goal: Absence of violence Outcome: Partially Met Problem: Plan for Discharge Goal: Knowledge of discharge plan and instructions Outcome: Partially Met Goal: Knowledge of medication management Outcome: Partially Met Goal: Knowledge of need for follow-up care Outcome: Partially Met Problem: Pain Goal: Manage acute pain Outcome: Partially Met Goal: Manage chronic pain Outcome: Partially Met Goal: Reduced pain sensation Outcome: Partially Met Goal: Achievement of comfort function goal Outcome: Partially Met Problem: Cognitive-Perceptual Pattern - Impaired Goal: Improved thought processes Outcome: Partially Met Goal: Improved environmental perceptions Outcome: Met Problem: Coping - Ineffective, Family Goal: Effective coping Outcome: Partially Met Problem: Social Interaction - Impaired Goal: Appropriate social interaction Outcome: Partially Met Problem: Violence - Risk of, Self/Other-Directed Goal: Absence of violence Outcome: Met Problem: Plan for Discharge Goal: Knowledge of discharge plan and instructions Outcome: Partially Met Goal: Knowledge of medication management Outcome: Partially Met Goal: Knowledge of need for follow-up care Outcome: Partially Met Problem: Pain Goal: Manage acute pain Outcome: Met Goal: Manage chronic pain Outcome: Met Goal: Reduced pain sensation Outcome: Met Goal: Achievement of comfort function goal Outcome: Met Behavioral Health Treatment Plan Update Date: 12/03/2019 Time: 3:02 PM Patient Name: Aba Carlton Date of : 2000 Sex: Male Patient Active Problem List Diagnosis Date Noted Psychoactive substance abuse (HCC) 11/13/2019 Schizoaffective disorder, bipolar type (HCC) 10/20/2019 Hyperthyroidism 10/20/2019 Diagnosis [place] I: Schizoaffective Disorder [place] II: Deferred [place] III: Patient Active Problem List Diagnosis Date Noted Psychoactive substance abuse (HCC) 11/13/2019 Schizoaffective disorder, bipolar type (HCC) 10/20/2019 Hyperthyroidism 10/20/2019 [place] IV: other psychosocial or environmental problems [place] V: 31-40 impairment in reality testing Expected Discharge Date: ELOS: 08-20 Precautions Precautions: Suicide Patient Presenting Issues: Patient's Primary Presenting Issue Patient's Primary Presenting Issue: Addiction Psychosis Symptoms: Paranoia Psychosis Treatment Goals: Control psychosis Days To Improvement Of Goal: 5- Psychosis Interventions: Medication management/evaluation, Medication education, Handouts psychoeducation, Individual psychoeducation, Group psychoeducation Mood Instability Symptoms: Mood Swings Mood Instability Treatment Goals: Stabilize mood Days To Improvement Of Goal: 08-20 Mood Instability Interventions: Medication management/evaluation, Medication education, Individual psychoeducation, Handouts psychoeducation, Group psychoeduction Inability to Care For Self Treatment Goals: Improve functioning level Days To Improvement Of Goal: 08-20 Inability To Care For Self Interventions: Medication education, Medication management/evaluation, Handouts psychoeducation, Individual psychoeducation, Group psychoeduction Addiction Types: Stimulants, Cannabis Addiction Treatment Goals: Improvement of presenting issues Days To Improvement Of Goal: 08-20 Addiction Interventions: Medication management/evaluation, Medication education, Handouts psychoeducation, Individual psychoeducation, Group psychoeduction Precautions Precautions: Suicide Seclusion/Restraint Date N/A Interventions to reduce Seclusion/RestraintN/A Discharge Needs Anticipated Facility Type: Psychiatric aftercare, Substance abuse treatment Criteria For Discharge Criteria For Discharge: Maximum benefit obtained Additional Comments: Patient continues to show little insight into his mental and physical health concerns and remains fixated on when he will discharge. His bottom cementer from [facility] is looking to find him more appropriate housing in a [facility] setting as patient is unable to remain safely at grandparents' home. Physician, Registered Nurse, Offshore Wind Turbine Technician, Adjunct Therapist included in treatment team discussion. Treatment team members present Dr. Carlos Chung MD; IAN Tena, HAIRSPRING ADJUSTER-S Patient Signature Date Patient's Response To Treatment Plan: Offshore Wind Turbine Technician Signature Date Problem: Cognitive-Perceptual Pattern - Impaired Goal: Improved thought processes Outcome: Partially Met Goal: Improved environmental perceptions Outcome: Partially Met Problem: Coping - Ineffective, Family Goal: Effective coping Outcome: Partially Met Problem: Social Interaction - Impaired Goal: Appropriate social interaction Outcome: Partially Met Goal: Participation in group activities Outcome: Partially Met Problem: Violence - Risk of, Self/Other-Directed Goal: Absence of violence Outcome: Partially Met Problem: Plan for Discharge Goal: Knowledge of discharge plan and instructions Outcome: Partially Met Goal: Knowledge of medication management Outcome: Partially Met Goal: Knowledge of need for follow-up care Outcome: Partially Met Problem: Pain Goal: Manage acute pain Outcome: Partially Met Goal: Manage chronic pain Outcome: Partially Met Goal: Reduced pain sensation Outcome: Partially Met Goal: Achievement of comfort function goal Outcome: Partially Met Problem: Violence - Risk of, Self/Other-Directed Goal: Absence of violence Outcome: Met Problem: Cognitive-Perceptual Pattern - Impaired Goal: Improved thought processes Outcome: Partially Met Goal: Improved environmental perceptions Outcome: Partially Met Problem: Coping - Ineffective, Family Goal: Effective coping Outcome: Partially Met Problem: Social Interaction - Impaired Goal: Appropriate social interaction Outcome: Partially Met Goal: Participation in group activities Outcome: Partially Met Problem: Plan for Discharge Goal: Knowledge of discharge plan and instructions Outcome: Partially Met Goal: Knowledge of medication management Outcome: Partially Met Goal: Knowledge of need for follow-up care Outcome: Partially Met Problem: Pain Goal: Manage acute pain Outcome: Partially Met Goal: Manage chronic pain Outcome: Partially Met Goal: Reduced pain sensation Outcome: Partially Met Goal: Achievement of comfort function goal Outcome: Partially Met Problem: Violence - Risk of, Self/Other-Directed Goal: Absence of violence Outcome: Met Problem: Cognitive-Perceptual Pattern - Impaired Goal: Improved thought processes Outcome: Partially Met Goal: Improved environmental perceptions Outcome: Partially Met Problem: Coping - Ineffective, Family Goal: Effective coping Outcome: Partially Met Problem: Social Interaction - Impaired Goal: Appropriate social interaction Outcome: Partially Met Goal: Participation in group activities Outcome: Partially Met Problem: Plan for Discharge Goal: Knowledge of discharge plan and instructions Outcome: Partially Met Goal: Knowledge of medication management Outcome: Partially Met Goal: Knowledge of need for follow-up care Outcome: Partially Met Problem: Pain Goal: Manage acute pain Outcome: Partially Met Goal: Manage chronic pain Outcome: Partially Met Goal: Reduced pain sensation Outcome: Partially Met Goal: Achievement of comfort function goal Outcome: Partially Met Problem: Cognitive-Perceptual Pattern - Impaired Goal: Improved thought processes Outcome: Partially Met Goal: Improved environmental perceptions Outcome: Partially Met Problem: Coping - Ineffective, Family Goal: Effective coping Outcome: Partially Met Problem: Social Interaction - Impaired Goal: Appropriate social interaction Outcome: Partially Met Goal: Participation in group activities Outcome: Partially Met Problem: Violence - Risk of, Self/Other-Directed Goal: Absence of violence Outcome: Partially Met Problem: Plan for Discharge Goal: Knowledge of discharge plan and instructions Outcome: Partially Met Goal: Knowledge of medication management Outcome: Partially Met Goal: Knowledge of need for follow-up care Outcome: Partially Met Problem: Violence - Risk of, Self/Other-Directed Goal: Absence of violence Outcome: Met Problem: Cognitive-Perceptual Pattern - Impaired Goal: Improved thought processes Outcome: Not Met Goal: Improved environmental perceptions Outcome: Not Met Problem: Coping - Ineffective, Family Goal: Effective coping Outcome: Not Met Problem: Social Interaction - Impaired Goal: Appropriate social interaction Outcome: Not Met Problem: Social Interaction - Impaired Goal: Participation in group activities Outcome: Partially Met Problem: Plan for Discharge Goal: Knowledge of discharge plan and instructions Outcome: Not Addressed Goal: Knowledge of medication management Outcome: Not Addressed Goal: Knowledge of need for follow-up care Outcome: Not Addressed Problem: Cognitive-Perceptual Pattern - Impaired Goal: Improved thought processes 11/30/2019 0932 by Elisha Veloz RN Outcome: Partially Met 11/30/2019753 by Elisha Veloz RN Outcome: Partially Met Goal: Improved environmental perceptions 11/30/2019931 by Elisha Veloz RN Outcome: Partially Met 11/30/2019753 by Elisha Veloz RN Outcome: Partially Met Problem: Coping - Ineffective, Family Goal: Effective coping 11/30/2019931 by Elisha Veloz RN Outcome: Partially Met 11/30/2019753 by Elisha Veloz RN Outcome: Partially Met Problem: Social Interaction - Impaired Goal: Appropriate social interaction 11/30/2019931 by Elisha Veloz RN Outcome: Partially Met 11/30/2019753 by Elisha Veloz RN Outcome: Partially Met Goal: Participation in group activities 11/30/2019931 by Elisha Veloz RN Outcome: Partially Met 11/30/2019753 by Elisha Veloz RN Outcome: Partially Met Problem: Violence - Risk of, Self/Other-Directed Goal: Absence of violence 11/30/2019931 by Elisha Veloz RN Outcome: Partially Met 11/30/2019753 by Elisha Veloz RN Outcome: Partially Met Problem: Plan for Discharge Goal: Knowledge of discharge plan and instructions 11/30/2019931 by Elisha Veloz RN Outcome: Partially Met 11/30/2019753 by Elisha Veloz RN Outcome: Partially Met Goal: Knowledge of medication management 11/30/2019931 by Elisha Veloz RN Outcome: Partially Met 11/30/2019753 by Elisha Veloz RN Outcome: Partially Met Goal: Knowledge of need for follow-up care 11/30/2019931 by Elisha Veloz RN Outcome: Partially Met 11/30/2019753 by Elisha Veloz RN Outcome: Partially Met Problem: Cognitive-Perceptual Pattern - Impaired Goal: Improved thought processes Outcome: Partially Met Goal: Improved environmental perceptions Outcome: Partially Met Problem: Coping - Ineffective, Family Goal: Effective coping Outcome: Partially Met Problem: Social Interaction - Impaired Goal: Appropriate social interaction Outcome: Partially Met Goal: Participation in group activities Outcome: Partially Met Problem: Violence - Risk of, Self/Other-Directed Goal: Absence of violence Outcome: Partially Met Problem: Plan for Discharge Goal: Knowledge of discharge plan and instructions Outcome: Partially Met Goal: Knowledge of medication management Outcome: Partially Met Goal: Knowledge of need for follow-up care Outcome: Partially Met Problem: Violence - Risk of, Self/Other-Directed Goal: Absence of violence Outcome: Met Problem: Cognitive-Perceptual Pattern - Impaired Goal: Improved thought processes Outcome: Not Met Goal: Improved environmental perceptions Outcome: Not Met Problem: Coping - Ineffective, Family Goal: Effective coping Outcome: Not Met Problem: Social Interaction - Impaired Goal: Appropriate social interaction Outcome: Partially Met Goal: Participation in group activities Outcome: Partially Met Problem: Plan for Discharge Goal: Knowledge of discharge plan and instructions Outcome: Not Addressed Goal: Knowledge of medication management Outcome: Not Addressed Goal: Knowledge of need for follow-up care Outcome: Not Addressed Problem: Cognitive-Perceptual Pattern - Impaired Goal: Improved thought processes Outcome: Partially Met Goal: Improved environmental perceptions Outcome: Partially Met Problem: Coping - Ineffective, Family Goal: Effective coping Outcome: Partially Met Problem: Social Interaction - Impaired Goal: Appropriate social interaction Outcome: Partially Met Goal: Participation in group activities Outcome: Partially Met Problem: Violence - Risk of, Self/Other-Directed Goal: Absence of violence Outcome: Partially Met Problem: Plan for Discharge Goal: Knowledge of discharge plan and instructions Outcome: Partially Met Goal: Knowledge of medication management Outcome: Partially Met Goal: Knowledge of need for follow-up care Outcome: Partially Met Problem: Violence - Risk of, Self/Other-Directed Goal: Absence of violence Outcome: Met Problem: Cognitive-Perceptual Pattern - Impaired Goal: Improved thought processes Outcome: Partially Met Goal: Improved environmental perceptions Outcome: Partially Met Problem: Coping - Ineffective, Family Goal: Effective coping Outcome: Partially Met Problem: Social Interaction - Impaired Goal: Appropriate social interaction Outcome: Partially Met Goal: Participation in group activities Outcome: Partially Met Problem: Plan for Discharge Goal: Knowledge of discharge plan and instructions Outcome: Not Addressed Goal: Knowledge of medication management Outcome: Not Addressed Goal: Knowledge of need for follow-up care Outcome: Not Addressed Problem: Cognitive-Perceptual Pattern - Impaired Goal: Improved thought processes Outcome: Partially Met Goal: Improved environmental perceptions Outcome: Partially Met Problem: Coping - Ineffective, Family Goal: Effective coping Outcome: Partially Met Problem: Social Interaction - Impaired Goal: Appropriate social interaction Outcome: Partially Met Goal: Participation in group activities Outcome: Partially Met Problem: Violence - Risk of, Self/Other-Directed Goal: Absence of violence Outcome: Partially Met Problem: Plan for Discharge Goal: Knowledge of discharge plan and instructions Outcome: Partially Met Goal: Knowledge of medication management Outcome: Partially Met Goal: Knowledge of need for follow-up care Outcome: Partially Met Problem: Violence - Risk of, Self/Other-Directed Goal: Absence of violence Outcome: Met Problem: Cognitive-Perceptual Pattern - Impaired Goal: Improved thought processes Outcome: Partially Met Goal: Improved environmental perceptions Outcome: Partially Met Problem: Coping - Ineffective, Family Goal: Effective coping Outcome: Partially Met Problem: Social Interaction - Impaired Goal: Appropriate social interaction Outcome: Partially Met Problem: Social Interaction - Impaired Goal: Participation in group activities Outcome: Not Addressed Problem: Plan for Discharge Goal: Knowledge of discharge plan and instructions Outcome: Not Addressed Goal: Knowledge of medication management Outcome: Not Addressed Goal: Knowledge of need for follow-up care Outcome: Not Addressed Problem: Violence - Risk of, Self/Other-Directed Goal: Absence of violence Outcome: Met Problem: Cognitive-Perceptual Pattern - Impaired Goal: Improved thought processes Outcome: Not Met Problem: Social Interaction - Impaired Goal: Appropriate social interaction Outcome: Not Met Goal: Participation in group activities Outcome: Not Met Problem: Cognitive-Perceptual Pattern - Impaired Goal: Improved environmental perceptions Outcome: Partially Met Problem: Coping - Ineffective, Family Goal: Effective coping Outcome: Partially Met Problem: Plan for Discharge Goal: Knowledge of discharge plan and instructions Outcome: Partially Met Goal: Knowledge of medication management Outcome: Partially Met Goal: Knowledge of need for follow-up care Outcome: Partially Met Problem: Cognitive-Perceptual Pattern - Impaired Goal: Improved thought processes Outcome: Partially Met Goal: Improved environmental perceptions Outcome: Partially Met Problem: Coping - Ineffective, Family Goal: Effective coping Outcome: Partially Met Problem: Social Interaction - Impaired Goal: Appropriate social interaction Outcome: Partially Met Goal: Participation in group activities Outcome: Partially Met Problem: Violence - Risk of, Self/Other-Directed Goal: Absence of violence Outcome: Partially Met Problem: Plan for Discharge Goal: Knowledge of discharge plan and instructions Outcome: Not Addressed Goal: Knowledge of medication management Outcome: Not Addressed Goal: Knowledge of need for follow-up care Outcome: Not Addressed Behavioral Health Treatment Plan Update Date: 11/26/2019 Time: 10:56 AM Patient Name: Aba Carlton Date of : 2000 Sex: Male Patient Active Problem List Diagnosis Date Noted Psychoactive substance abuse ([facility]) 11/13/2019 Schizoaffective disorder, bipolar type (HCC) 10/20/2019 Hyperthyroidism 10/20/2019 Diagnosis [place] I: Schizoaffective Disorder [place] II: Deferred [place] III: Patient Active Problem List Diagnosis Date Noted Psychoactive substance abuse (HCC) 11/13/2019 Schizoaffective disorder, bipolar type (HCC) 10/20/2019 Hyperthyroidism 10/20/2019 [place] IV: other psychosocial or environmental problems [place] V: 31-40 impairment in reality testing Expected Discharge Date: ELOS: 08-20 Precautions Precautions: Suicide Patient Presenting Issues: Patient's Primary Presenting Issue Patient's Primary Presenting Issue: Addiction Psychosis Symptoms: Paranoia Psychosis Treatment Goals: Control psychosis Days To Improvement Of Goal: 5-7 Psychosis Interventions: Medication management/evaluation, Medication education, Handouts psychoeducation, Individual psychoeducation, Group psychoeducation Mood Instability Symptoms: Mood Swings Mood Instability Treatment Goals: Stabilize mood Days To Improvement Of Goal: 5-7 Mood Instability Interventions: Medication management/evaluation, Medication education, Individual psychoeducation, Handouts psychoeducation, Group psychoeduction Inability to Care For Self Treatment Goals: Improve functioning level Days To Improvement Of Goal: 5-7 Inability To Care For Self Interventions: Medication education, Medication management/evaluation, Handouts psychoeducation, Individual psychoeducation, Group psychoeduction Addiction Types: Stimulants, Cannabis Addiction Treatment Goals: Improvement of presenting issues Days To Improvement Of Goal: 5-7 Addiction Interventions: Medication management/evaluation, Medication education, Handouts psychoeducation, Individual psychoeducation, Group psychoeduction Precautions Precautions: Suicide Seclusion/Restraint Date N/A Interventions to reduce Seclusion/Restraint N/A Discharge Needs Anticipated Facility Type: Psychiatric aftercare, Substance abuse treatment Criteria For Discharge Criteria For Discharge: Maximum benefit obtained Additional Comments: Patient continues to show limited insight in his health issues (hyperthyroidism) and how it affects his mental health. He has been irritable with staff when he is told he is not discharging yet. Demands to go home regularly. Sporadically attending therapy groups, limited insight and participation in them. Physician, Registered Nurse, Offshore Wind Turbine Technician, Adjunct Therapist included in treatment team discussion. Treatment team members present Dr. Carlos Chung MD; IAN Tena LISW-S Patient Signature Date Patient's Response To Treatment Plan: Offshore Wind Turbine Technician Signature Date Problem: Cognitive-Perceptual Pattern - Impaired Goal: Improved thought processes Outcome: Partially Met Goal: Improved environmental perceptions Outcome: Partially Met Problem: Coping - Ineffective, Family Goal: Effective coping Outcome: Partially Met Problem: Social Interaction - Impaired Goal: Appropriate social interaction Outcome: Partially Met Goal: Participation in group activities Outcome: Partially Met Problem: Violence - Risk of, Self/Other-Directed Goal: Absence of violence Outcome: Partially Met Problem: Plan for Discharge Goal: Knowledge of discharge plan and instructions Outcome: Partially Met Goal: Knowledge of medication management Outcome: Partially Met Goal: Knowledge of need for follow-up care Outcome: Partially Met Problem: Violence - Risk of, Self/Other-Directed Goal: Absence of violence Outcome: Met Problem: Cognitive-Perceptual Pattern - Impaired Goal: Improved thought processes Outcome: Not Met Goal: Improved environmental perceptions Outcome: Not Met Problem: Coping - Ineffective, Family Goal: Effective coping Outcome: Not Met Problem: Social Interaction - Impaired Goal: Appropriate social interaction Outcome: Not Met Problem: Social Interaction - Impaired Goal: Participation in group activities Outcome: Partially Met Problem: Plan for Discharge Goal: Knowledge of discharge plan and instructions Outcome: Not Addressed Goal: Knowledge of medication management Outcome: Not Addressed Goal: Knowledge of need for follow-up care Outcome: Not Addressed Problem: Cognitive-Perceptual Pattern - Impaired Goal: Improved thought processes Outcome: Partially Met Goal: Improved environmental perceptions Outcome: Partially Met Problem: Coping - Ineffective, Family Goal: Effective coping Outcome: Partially Met Problem: Social Interaction - Impaired Goal: Appropriate social interaction Outcome: Partially Met Goal: Participation in group activities Outcome: Partially Met Problem: Violence - Risk of, Self/Other-Directed Goal: Absence of violence Outcome: Partially Met Problem: Plan for Discharge Goal: Knowledge of discharge plan and instructions Outcome: Partially Met Goal: Knowledge of medication management Outcome: Partially Met Goal: Knowledge of need for follow-up care Outcome: Partially Met Associated Problem(s): Schizoaffective disorder, bipolar type (HCC) A: Aba is back in the hospital, again non-compliant with medications. This time, he stole a car and ran off. Brought in by police. He has no insight whatsoever that his behaviors cause repeated hospitalizations. He denies all psychiatric symptoms and is clamoring for discharge.Guardianship paperwork has already been submitted during last hospitalization. Plan: Admit for patient safety and the safety of the community Unpredictable and elopement precautions PRN medications for agitation, anxiety and insomnia, EPS Continue medical treatment of hyperthyroid state per endocrinology Increase dose of next Invega Sustenna injection to 234 mg q 4 weeks (8-22) Discuss possible addition of lithium with Dr. Nieto Milieu therapy Individual and group sessions as tolerated SW liason with family and AOT program Internal medicine consult Lab and radiology as indicated Problem: Cognitive-Perceptual Pattern - Impaired Goal: Improved thought processes Outcome: Partially Met Goal: Improved environmental perceptions Outcome: Partially Met Problem: Coping - Ineffective, Family Goal: Effective coping Outcome: Partially Met Problem: Social Interaction - Impaired Goal: Appropriate social interaction Outcome: Partially Met Goal: Participation in group activities Outcome: Partially Met Problem: Violence - Risk of, Self/Other-Directed Goal: Absence of violence Outcome: Partially Met Problem: Plan for Discharge Goal: Knowledge of discharge plan and instructions Outcome: Partially Met Goal: Knowledge of medication management Outcome: Partially Met Goal: Knowledge of need for follow-up care Outcome: Partially Met Problem: Cognitive-Perceptual Pattern - Impaired Goal: Improved thought processes Outcome: Partially Met Goal: Improved environmental perceptions Outcome: Partially Met Problem: Coping - Ineffective, Family Goal: Effective coping Outcome: Partially Met Problem: Social Interaction - Impaired Goal: Appropriate social interaction Outcome: Partially Met Goal: Participation in group activities Outcome: Partially Met Problem: Violence - Risk of, Self/Other-Directed Goal: Absence of violence Outcome: Partially Met Problem: Plan for Discharge Goal: Knowledge of discharge plan and instructions Outcome: Not Addressed Goal: Knowledge of medication management Outcome: Not Addressed Goal: Knowledge of need for follow-up care Outcome: Not Addressed Behavioral Health Initial Treatment Plan Date: 11/23/2019 Time: 1:58 PM Patient Name: Aba Carlton Date of : 2000 Sex: Male Admit Date/Time: 11/22/2019 9:20 PM Patient Active Problem List Diagnosis Date Noted Psychoactive substance abuse (HCC) 11/13/2019 Schizoaffective disorder, bipolar type ([facility]) 10/20/2019 Hyperthyroidism 10/20/2019 Diagnosis Schizoaffective disorder bipolar type Hypothyroidism Patient Active Problem List Diagnosis Date Noted Psychoactive substance abuse ([facility]) 11/13/2019 Schizoaffective disorder, bipolar type ([facility]) 10/20/2019 Hyperthyroidism 10/20/2019 Reason for Hospitalization Reason for Hospitalization: Psychosis Expected Discharge Date: ELOS: 5 Precautions Precautions: Unpredictable Patient Presenting Issues: Patient's Primary Presenting Issue Patient's Primary Presenting Issue: Addiction Psychosis Symptoms: Paranoia Psychosis Treatment Goals: Control psychosis Days To Improvement Of Goal: 5-7 Psychosis Interventions: Medication management/evaluation, Medication education, Handouts psychoeducation, Individual psychoeducation, Group psychoeducation Mood Instability Symptoms: Mood Swings Mood Instability Treatment Goals: Stabilize mood Days To Improvement Of Goal: 5-7 Mood Instability Interventions: Medication management/evaluation, Medication education, Individual psychoeducation, Handouts psychoeducation, Group psychoeduction Inability to Care For Self Treatment Goals: Improve functioning level Days To Improvement Of Goal: 5-7 Inability To Care For Self Interventions: Medication education, Medication management/evaluation, Handouts psychoeducation, Individual psychoeducation, Group psychoeduction Addiction Types: Stimulants, Cannabis Addiction Treatment Goals: Improvement of presenting issues Days To Improvement Of Goal: 5-7 Addiction Interventions: Medication management/evaluation, Medication education, Handouts psychoeducation, Individual psychoeducation, Group psychoeduction Precautions Precautions: Unpredictable Seclusion/Restraint Date Interventions to reduce Seclusion/Restraint Discharge Needs Anticipated Facility Type: Psychiatric aftercare, Substance abuse treatment Criteria For Discharge Criteria For Discharge: Maximum benefit obtained Additional Comments: Physician, Registered Nurse, Offshore Wind Turbine Technician, Adjunct Therapist included in treatment team discussion. Treatment team members present: Carlos Chung MD Patient Signature Date Patient's Response To Treatment Plan: Physician Signature Date Behavioral Health Therapy Initial Assessment Refer to Adjunct Therapy Flowsheet for additional information Reason for Admission: Nothing. I just got into a dispute with my grandparents. I just took the car out for a minute. Per chart pt stole his grandparents car and the car still has not been found. Pt reportedly has not been compliant with medications or court ordered AOT. Pas was discharged from this unit 11/18. Pt returned to the ED on 11/19 and was admitted to a medical floor for stabilization of his hyperthyroidism. Pt was transferred back to this unit last evening. Changes/Stressors: Pt recently hospitalized here 10/18 - 10/29 at which time he was probated and court ordered to begin AOT. Pt was again hospitalized here 11/11 - 11/18 for non-compliance. Daily Routine: Pt guarded and unrevealing with sharing. Pt had been living with his grandparents. Coping Skills: Pt has a history of poor compliance with medications. Pt in the past has been positive for cannabis and upon admission pt was positive for amphetamines. Pt denied substance abuse and voiced he has been compliant with medications, however, this is questionable as pt is a poor historian. Leisure Interests: Unable to assess at this time; Pt guarded with sharing Support Network: Grandparents Personal Strengths: Unable to assess at this time. Patient Treatment Goal: Pt reported he is fine and he is due to be leaving tomorrow. Pt will not acknowledge his need for treatment. His insight is poor. Clinical Summary: Pt in his room upon approach. He answered only select questions and was guarded and vague with sharing. Pt exhibited paranoia and requested that this mortgage loan underwriter not write anything he was saying down. Pt has poor insight towards his symptoms and treatment needs. Plan: Goal Group, AM Warm Up, Recreation Therapy Problem: Cognitive-Perceptual Pattern - Impaired Goal: Improved thought processes Outcome: Partially Met Goal: Improved environmental perceptions Outcome: Partially Met Problem: Coping - Ineffective, Family Goal: Effective coping Outcome: Partially Met Problem: Social Interaction - Impaired Goal: Appropriate social interaction Outcome: Partially Met Goal: Participation in group activities Outcome: Partially Met Problem: Violence - Risk of, Self/Other-Directed Goal: Absence of violence Outcome: Partially Met Problem: Plan for Discharge Goal: Knowledge of discharge plan and instructions Outcome: Partially Met Goal: Knowledge of medication management Outcome: Partially Met Goal: Knowledge of need for follow-up care Outcome: Partially Met Problem: Violence - Risk of, Self/Other-Directed Goal: Absence of violence Outcome: Met Problem: Cognitive-Perceptual Pattern - Impaired Goal: Improved thought processes Outcome: Not Met Goal: Improved environmental perceptions Outcome: Not Met Problem: Coping - Ineffective, Family Goal: Effective coping Outcome: Not Met Problem: Social Interaction - Impaired Goal: Appropriate social interaction Outcome: Partially Met Problem: Social Interaction - Impaired Goal: Participation in group activities Outcome: Not Addressed Problem: Plan for Discharge Goal: Knowledge of discharge plan and instructions Outcome: Not Addressed Goal: Knowledge of medication management Outcome: Not Addressed Goal: Knowledge of need for follow-up care Outcome: Not Addressed documented in this encounter pjb Mask/gloves Pt had mask on documented in this encounter Problem: Mood - Altered Goal: Improved mood stability Outcome: Completed Problem: Self-esteem - Low Goal: Improved self-esteem Outcome: Completed Problem: Thought Process - Altered Goal: Improved thought processes Outcome: Completed Problem: Plan for Discharge Goal: Knowledge of discharge plan and instructions Outcome: Completed Problem: Health Maintenance - Impaired Goal: Able to perform ADL Outcome: Completed Goal: Improved sleep pattern Outcome: Completed Goal: Adequate nutritional intake Outcome: Completed Goal: Knowledge of disease process Outcome: Completed Problem: Health Maintenance - Impaired Goal: Able to perform ADL Outcome: Completed Goal: Improved sleep pattern Outcome: Completed Goal: Adequate nutritional intake Outcome: Completed Goal: Knowledge of disease process Outcome: Completed Problem: Violence - Risk of, Self/Other-Directed Goal: Absence of violence Outcome: Completed Problem: Health Maintenance - Impaired Goal: Able to perform ADL Outcome: Met Goal: Adequate nutritional intake Outcome: Met Problem: Violence - Risk of, Self/Other-Directed Goal: Absence of violence Outcome: Met Problem: Mood - Altered Goal: Improved mood stability Outcome: Partially Met Problem: Self-esteem - Low Goal: Improved self-esteem Outcome: Partially Met Problem: Thought Process - Altered Goal: Improved thought processes Outcome: Partially Met Problem: Health Maintenance - Impaired Goal: Knowledge of disease process Outcome: Partially Met Problem: Plan for Discharge Goal: Knowledge of discharge plan and instructions Outcome: Not Addressed Problem: Health Maintenance - Impaired Goal: Improved sleep pattern Outcome: Not Addressed Discussed long acting injectable Invega Sustenna with Aba and he agreed to take the injection. He was told that he would receive one injection today, one in 8 days at [facility] and then an injection every 28 days beyond this. He expressed some hesitancy after initially saying yes, but after further discussion on the benefits of taking the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 Problem List Diagnosis Date Noted Schizoaffective disorder, bipolar type (HCC) 10/20/2019 Priority: 1 Hyperthyroidism 10/20/2019 Reason for Admission: If I had a gun, I would blow my brains out Expected Discharge Date: ELOS: 5-7 days Precautions Precautions: Suicide Patient Presenting Issues: Patient's Primary Presenting Issue Patient's Primary Presenting Issue: Suicidal Suicidal Symptoms: Ideation Suicidal Goals: Aba will be free from suicidal ideation by discharge Days To Improvement Of Goal: 5-7 days Suicidal Treatment Interventions: Medication management/evaluation, Group psychoeduction, Develop personal safety plan, Handouts psychoeducation, Medication education, Aftercare arrangements Status Of Goal: Unchanged Patient's Secondary Presenting Issue Patient's Secondary Presenting Issue: Mood instablilty Mood Instability Symptoms: Depression Mood Instability Treatment Goals: Laureanos mood will be stabilized by discharge. Days To Improvement Of Goal: 5-7 days Mood Instability Interventions: Medication management/evaluation, Group psychoeduction, Medication education, Handouts psychoeducation, Develop personal safety plan, Aftercare arrangements Status Of Goal: Unchanged Precautions Precautions: Suicide Interventions to reduce Seclusion/Restraint: milieu environment, group participation, social media designer linkages/care coordination; medication management Patient Strengths Patient Strengths: Basic self-care skills, Family/friends, Physical health Patient Limitations Patient Limitations: Lack of mental health linkage Discharge Needs Anticipated Facility Type: Psychiatric aftercare Criteria For Discharge Criteria For Discharge: Maximum benefit obtained Patient Signature Date Patient's Response To Treatment Plan: Physician Signature Date Alina Kumar, COMPLAINT INVESTIGATIONS OFFICER 10/20/2019 DAYSI Signature Date Nurse Signature Date Offshore Wind Turbine Technician Signature Date Adjunct Therapist Signature Date Associated attestation - Momo Casiano MD - 10/21/2019 3:23 PM EDT I have personally seen and examined the patient independently of the Advanced Practice Nurse. I have reviewed the history, physical, test results, diagnosis and care plan with the Advanced Practice Nurse, Kenna Kumar I confirm the assessment and treatment plan: Problem: Health Maintenance - Impaired Goal: Able to perform ADL Outcome: Partially Met Goal: Adequate nutritional intake Outcome: Partially Met Problem: Mood - Altered Goal: Improved mood stability Outcome: Partially Met Problem: Plan for Discharge Goal: Knowledge of discharge plan and instructions Outcome: Partially Met Goal: Knowledge of medication management Outcome: Partially Met Goal: Knowledge of need for follow-up care Outcome: Partially Met Behavioral Health Pre Admission Screening Tool Date: 10/20/2019 Time: 3:28 AM Patient Name: Aba Carlton Date of : 2000 Sex: Male Prescreener Caller Information: [facility] Referral Source: [facility] Diagnosis: Schizophernia Presenting Problem/Chief Complaint: SI with hallucinations Medical Status: Stable Functional Status: Independent Medication Compliant: No Reason Not Medication Compliant: No prescription Insurance Information/Precertification Completed: Yes Case Reveiwed With: (Dr. Goldman) Accepted for Admission: Yes Admitting Physician: (Dr. Goldman) Number For RN To RN Communication: C Unit Risk Factors Recent Psychological Experiences: Conflict (Comment) Current Suicidal Ideation: Yes Describe Current Suicidal Ideation : Reports that he wants to kill himself- Plan to shoot self or cut wrist Previous Suicidal Ideation: Yes Describe Previous Suicidal Ideation: reports that he has had suicidal ideations in the past as well. Current Suicide Attempt: No Previous Suicide Attempt: Yes Describe Previous Suicide Attempt: Reports that he has cut himself to kill himself in the past Current Self Harm Behavior: No Previous Self Harm Behavior: Yes Describe Previous Self Harm: Reports that he has a history of self injurious behaviors Current Plans to Harm Another: No Previous Plans to Harm Another: No History of Attempts to Harm Another: No Access to Weapons: Information not available Violent Episode: No Previous Violent Episode: Information not available Family History of Suicide: Information not available Family History of Mental Illness: Information not available Family History of Substance Abuse: Yes Describe Family History of Substance Abuse Text: Reports thatboth parents are alcoholics Elopement: No risk Methods to Calm Down: Quiet time in room Restraint Risk Factors: None [facility]untary admission to [facility] under the care of Dr. Goldman. ED Attestation: I did not see this patient. However, I was physically present in the department and available for consult in the ED for this patient, if the Advanced Practice Provider (DAYSI) needed any assistance. The DAYSI evaluated the patient independently for a complaint of Suicidal, and completed their own examination, documentation, and discharge. documented in this encounter Problem: Actual or potential alteration in health Goal: Knowledge of Enviroment Outcome: Met Problem: Actual or potential alteration in health Goal: Absence of healthcare acquired conditions Outcome: Partially Met Goal: Knowledge of Interdisciplinary Plan of Care Outcome: Partially Met Problem: Pressure Ulcer - Risk of Goal: Absence of pressure ulcer Outcome: Partially Met Problem: Plan for Discharge Goal: Knowledge of discharge plan and instructions Outcome: Partially Met Problem: Injury - Risk of, Self-harm Goal: Absence of self-harm Outcome: Partially Met Problem: Actual or potential alteration in health Goal: Absence of healthcare acquired conditions Outcome: Partially Met Goal: Knowledge of Interdisciplinary Plan of Care Outcome: Partially Met Goal: Knowledge of Enviroment Outcome: Partially Met Problem: Pressure Ulcer - Risk of Goal: Absence of pressure ulcer Outcome: Partially Met Problem: Plan for Discharge Goal: Knowledge of discharge plan and instructions Outcome: Partially Met Problem: Injury - Risk of, Self-harm Goal: Absence of self-harm Outcome: Partially Met Problem: Actual or potential alteration in health Goal: Absence of healthcare acquired conditions Outcome: Partially Met Goal: Knowledge of Interdisciplinary Plan of Care Outcome: Partially Met Goal: Knowledge of Enviroment Outcome: Partially Met Problem: Pressure Ulcer - Risk of Goal: Absence of pressure ulcer Outcome: Partially Met Problem: Plan for Discharge Goal: Knowledge of discharge plan and instructions Outcome: Partially Met Problem: Injury - Risk of, Self-harm Goal: Absence of self-harm Outcome: Partially Met Patient sitting up at EOB, eating breakfast. Denies discomfort/needs at this time. Daily goal: stay happy. Call light within reach. Problem: Actual or potential alteration in health Goal: Absence of healthcare acquired conditions Outcome: Partially Met Goal: Knowledge of Interdisciplinary Plan of Care Outcome: Partially Met Goal: Knowledge of Enviroment Outcome: Partially Met Problem: Actual or potential alteration in health Goal: Absence of healthcare acquired conditions Outcome: Partially Met Goal: Knowledge of Interdisciplinary Plan of Care Outcome: Partially Met Goal: Knowledge of Enviroment Outcome: Partially Met Problem: Pressure Ulcer - Risk of Goal: Absence of pressure ulcer Outcome: Partially Met Problem: Plan for Discharge Goal: Knowledge of discharge plan and instructions Outcome: Partially Met Problem: Injury - Risk of, Self-harm Goal: Absence of self-harm Outcome: Partially Met POC reviewed and updated Problem: Actual or potential alteration in health Goal: Absence of healthcare acquired conditions Outcome: Partially Met Goal: Knowledge of Interdisciplinary Plan of Care Outcome: Partially Met Goal: Knowledge of Enviroment Outcome: Partially Met Problem: Pressure Ulcer - Risk of Goal: Absence of pressure ulcer Outcome: Partially Met Problem: Plan for Discharge Goal: Knowledge of discharge plan and instructions Outcome: Partially Met Problem: Injury - Risk of, Self-harm Goal: Absence of self-harm Outcome: Partially Met This RN called [facility] to report that patient had pulled out his IV. Patient is running NS at 100 ml/hr but taking in oral fluids very well and eating well. The [facility] said the IV and fluids could be discontinued at this time due to patient being discharged tomorrow. This RN was sitting with patient. Patient received a bag of clothes from outside source. Patient proceeded to put on clothes (taking off Blue Gown). I told him he had to leave blue gown on. He proceeded to get dressed. Patient pulled out IV. Patient called grandma. Patient pulled out import customs clearing agent and put into his pants pocket. Patient grabbed his clothes and tried to leave. I stood in front of him and told him he could not leave. He said, Am I pink slipped. I said, You are court ordered to be here. Patient asked to go outside and smoke and/or go for a walk. I told him He was not allowed. I got another sitter at this time and called security to clear out his room. Patient had personal items, etc., in his room. These items are now in bags with patient label in back room. Problem: Actual or potential alteration in health Goal: Absence of healthcare acquired conditions Outcome: Partially Met Goal: Knowledge of Interdisciplinary Plan of Care Outcome: Partially Met Goal: Knowledge of Enviroment Outcome: Partially Met Problem: Pressure Ulcer - Risk of Goal: Absence of pressure ulcer Outcome: Partially Met POC initiated Problem: Actual or potential alteration in health Goal: Absence of healthcare acquired conditions Outcome: Not Met Goal: Knowledge of Interdisciplinary Plan of Care Outcome: Not Met Goal: Knowledge of Enviroment Outcome: Not Met Problem: Pressure Ulcer - Risk of Goal: Absence of pressure ulcer Outcome: Not Met JASON Smith at bedside Daily goal set: feel better today Patient denies needs at this time. Call light within reach. documented in this encounter Goals (unrecognized section and content) Goals may be documented in a n alternate sectionGoals may be documented in an alternate section Source Comments (unrecognize d section and content) In the event this informatio n is protected by the Federal Confidentiality of Alcohol and Drug Abuse Patient Records regulations: The Federal rules restrict any use of the information to criminally investigate or prosecute any alcohol or drug abuse patient.[facility] Scheduled Active and Recently Administ ered Medications (unrecognized section and content) Medication Order 08/22/2023 08/23/2023 08/24/2023 divalproex (DEPAKOTE ER) 24 hr tablet 500 mg 500 mg, Oral, Daily, First dose (after last modification) on Sun08/21/23 at 0900, CATEGORY D HAZARDOUS DRUG use safe handling precautions. Use reference link to view PPE guidelines. DO NOT CRUSH OR CHEW. 1023 (Given - Provider: Kenna Owusu RN) 0808 (Given - Provider: Kenna John RN) 0853 (Given - Provider: Kalin Muniz RN) divalproex (DEPAKOTE ER) 500 MG 24 hr tablet Take 1 (one) tablet (500 mg total) by mouth 2 (two) times a day ., Starting Alysa 12/18/2019, Until Alysa 02/26/2020, Normal enoxaparin (LOVENOX) syringe 40 mg 40 mg, Subcutaneous, Daily, First dose on Sun08/20/23 at 1200, Administer in abdomen unless otherwise directed by prescriber. Notify physician if patient refuses., Indication: VTE Prophylaxis 1022 (Given - Provider: Kenna Owusu RN) 0807 (Given - Provider: Kenna John RN) 0853 (Given - Provider: Kalin Muniz RN) hydrocortisone sod succ (SOLU-CORTEF) injection 100 mg (CANCELED) 100 mg, Intravenous, Every 8 hours scheduled, First dose (after last modification) on Sun08/20/23 at 1400 0604 (Given - Provider: Tiff Nguyễn RN) hydrocortisone sod succ (SOLU-CORTEF) injection 50 mg (CANCELED) 50 mg, Intravenous, Every 8 hours scheduled, First dose (after last modification) on Sun08/22/23 at 1400 1400 (Given - Provider: Kenna Owusu RN)2054 (Given - Provider: Radha Arvizu RN)2199 (Canceled Entry - Provider: Radha Arvizu RN) 0600 (Given - Provider: Radha Arvizu RN) methIMAzole (TAPAZOLE) 10 MG tablet Take 2 (two) tablets (20 mg total) by mouth every 6 (six) hours ., Starting Sun08/20/2023, Until Sun09/19/2023, Normal methIMAzole (TAPAZOLE) tablet 20 mg (CANCELED) 20 mg, Oral, Every 6 hours scheduled, First dose (after last modification) on Sun08/20/23 at 1200, CATEGORY C HAZARDOUS DRUG use safe handling precautions. Use reference link to view PPE guidelines. Minimize crushing/splitting only to situations where clinically necessary. 0007 (Given - Provider: Tiff Nguyễn RN)0600 (Given - Provider: Tiff Nguyễn RN) methIMAzole (TAPAZOLE) tablet 20 mg (CANCELED) 20 mg, Oral, Every 8 hours, First dose (after last modification) on Sun08/22/23 at 1400, CATEGORY C HAZARDOUS DRUG use safe handling precautions. Use reference link to view PPE guidelines. Minimize crushing/splitting only to situations where clinically necessary. 1400 (Given - Provider: Kenna Owusu RN)2054 (Given - Provider: Radha Arvizu RN)2200 (Canceled Entry - Provider: Radha Arvizu RN) 0600 (Given - Provider: Radha Arvizu RN) methIMAzole (TAPAZOLE) tablet 20 mg 20 mg, Oral, 2 times daily, First dose (after last modification) on Sun08/23/23 at 2100, CATEGORY C HAZARDOUS DRUG use safe handling precautions. Use reference link to view PPE guidelines. Minimize crushing/splitting only to situations where clinically necessary. 2215 (Given - Provider: Tere Arreola RN) 0853 (Given - Provider: Kalin Muniz, CRISTAL) nicotine (NICODERM CQ) 21 mg/24 hr 1 patch 1 patch, Transdermal, Administer over 24 Hours, Daily, First dose on Sun08/21/23 at 0900, U/P Listed Hazardous Drug. Waste Must Be Disposed in [employer] Waste Container 0820 (Patch Removed - Provider: Kenna Owusu RN)1022 (Patch Applied - Provider: Kenna Owusu RN) 0809 (Patch Removed - Provider: Kenna John RN)0810 (Patch Applied - Provider: Kenna John RN) 0810 (Patch Removed - Provider: Kalin Muniz, CRISTAL)0853 (Patch Applied - Provider: Kalin Muniz, CRISTAL) nicotine (NICODERM CQ) 21 mg/[address] 1 (one) patch on the skin daily Start: 08/21/23., Starting Sun08/21/2023, Until Sun09/20/2023, Normal paliperidone (INVEGA) 24 hr tablet 6 mg 6 mg, Oral, Daily, First dose (after last modification) on Sun08/21/23 at 0900, DO NOT CRUSH OR CHEW. 1023 (Given - Provider: Kenna Owusu RN) 0808 (Given - Provider: Kenna John RN) 0853 (Given - Provider: Kalin Muniz, CRISTAL) paliperidone (INVEGA) 6 MG 24 hr tablet Take 1 (one) tablet (6 mg total) by mouth daily Start: 12/19/19., Starting Sun12/19/2019, Until Sun02/26/2020, Normal potassium chloride SA (K-DUR,KLOR-CON) CR tablet 40 mEq (COMPLETED) 40 mEq, Oral, Once, On Sun08/23/23 at 0815, For 1 dose, 40mEq orally x 1 for serum Potassium in range of 3-3.4 mEq/L per Critical Care Electrolyte Replacement Therapy. ORDER repeat potassium level 4 hours after dose. DO NOT CRUSH OR CHEW (if instructed may dissolve tablet(s) in liquid) DO NOT ADMINISTER DISSOLVED TABLET VIA SURGICALLY PLACED TUBE OR TUBE less than 14 [place]. To administer dissolved tablet(s) mix with 4 ounces of water over 2-3 minutes, stir for 30 seconds prior to administration; rinse dosing cup and administer residual medication to ensure full dose given 0807 (Given - Provider: Kenna John, CRISTAL) potassium iodide (SSKI) 1 gram/mL solution 5 drop (CANCELED) 5 drop, Oral, Every 6 hours scheduled, First dose (after last modification) on Sun08/20/23 at 1300, Start at least one hour after propylthiouracil or methimazole for thyrotoxicosis. May be very irritating to oral mucosa - consider mixing with 240mL of beverage and food to decrease irritation. 0008 (Given - Provider: Tiff Nguyễn RN)0600 (Given - Provider: Tiff Nguyễn RN)1200 (Given - Provider: Kenna Owusu, CRISTAL)1827 (Given - Provider: Kenna Owusu, CRISTAL) 0013 (Given - Provider: Radha Arvizu, CRISTAL)0600 (Given - Provider: Radha Arvizu, CRISTAL) propranoloL (INDERAL) tablet 60 mg (CANCELED) 60 mg, Oral, Every 6 hours scheduled, First dose (after last modification) on Sun08/21/23 at 1800 0007 (Given - Provider: Tiff Nguyễn, CRISTAL)0604 (Given - Provider: Tiff Nguyễn, RN)1400 (Given - Provider: Kenna Owusu, CRISTAL)1827 (Given - Provider: Kenna Owusu, CRISTAL) 0012 (Given - Provider: Radha Arvizu, CRISTAL)0600 (Given - Provider: Radha Arvizu, CRISTAL) propranoloL (INDERAL) tablet 80 mg 80 mg, Oral, Every 6 hours scheduled, First dose (after last modification) on Sun08/23/23 at 1200 1137 (Given - Provider: Kenna John RN)1636 (Given - Provider: Kenna John RN)1800 (Canceled Entry - Provider: Kenna John RN) 0029 (Given - Provider: Tere Arreola RN)0525 (Given - Provider: Tere Arreola RN)1212 (Given - Provider: Kalin Muniz, CRISTAL) sodium chloride (PF) (NS) flush 5 mL(Linked Group 1) 5 mL, Intravenous, Every 8 hours scheduled, First dose on Sun08/20/23 at 1400, Saline lock 0600 (Given - Provider: Tiff Nguyễn RN)1401 (Given - Provider: Kenna Owusu RN)2055 (Given - Provider: Radha Arvizu RN)2200 (Canceled Entry - Provider: Radha Arvizu RN) 0604 (Given - Provider: Radha Arvizu RN)1400 (Canceled Entry - Provider: Kenna John RN)2200 (Not Given - Provider: Tere Arreola RN - Reason: Other) 0600 (Canceled Entry - Provider: Tere Arreola RN)1216 (Given - Provider: Kalin Muniz, CRISTAL) PRN Medication Order 08/22/2023 08/23/2023 08/24/2023 diphenhydrAMINE (BENADRYL) injection 50 mg 50 mg, Intravenous, Every 6 hours PRN, other, give with IV haldol PRN, Starting on Sun08/20/23 at 1354, For IV administration, give at a rate less than or equal to 25 mg/min 2107 (Given - Provider: Radha Arvizu RN) 003 (Given - Provider: Tere Arreola RN)121 (Given - Provider: Kalin Muniz, CRISTAL) haloperidol lactate (HALDOL) injection 5 mg 5 mg, Intravenous, Every 6 hours PRN, agitation, administer with Benadryl 50 mg IV, Starting on Sun08/20/23 at 1354, May cause QT interval prolongation. 2102 (Given - Provider: Radha Arvizu RN) 003 (Given - Provider: Tere Arreola RN)121 (Given - Provider: Kalin Muniz RN) ondansetron (ZOFRAN) injection 4 mg(Linked Group 2) 4 mg, Intravenous, Every 6 hours PRN, nausea, vomiting, Starting on Sun08/20/23 at 1102, Use oral route first, if tolerated. ondansetron (ZOFRAN-ODT) disintegrating tablet 4 mg(Linked Group 2) 4 mg, Oral, Every 6 hours PRN, nausea, vomiting, Starting on Sun08/20/23 at 1102, Use oral route first, if tolerated. Formulation requires tablet remain in sealed package until immediately prior to dose being administered. sodium chloride (PF) (NS) flush 5 mL(Linked Group 1) 5 mL, Intravenous, As needed, line care, Starting on Sun08/20/23 at 1101 sodium chloride 0.9% (NS)(Linked Group 1) 0-150 mL/hr, Intravenous, As needed, To flush line after IV infusions when no maintenance IV ordered or a compatibility issue. Infuse 20ml at the same rate as the secondary infusion, Starting on Sun08/20/23 at 1101, Run as Primary IV. NOT intended for KVO. Linked Groups Order Group 1: Saline lock IV (CANCELED) Routine, Continuous, Starting on Sun08/20/23 at 1102, Until Specified And sodium chloride (PF) (NS) flush 5 mLJump to med 5 mL, Intravenous, As needed, line care, Starting on Sun08/20/23 at 1101 And sodium chloride (PF) (NS) flush 5 mLJump to med 5 mL, Intravenous, Every 8 hours scheduled, First dose on Sun08/20/23 at 1400, Saline lock And sodium chloride 0.9% (NS)Jump to med 0-150 mL/hr, Intravenous, As needed, To flush line after IV infusions when no maintenance IV ordered or a compatibility issue. Infuse 20ml at the same rate as the secondary infusion, Starting on Sun08/20/23 at 1101, Run as Primary IV. NOT intended for KVO. Group 2: ondansetron (ZOFRAN-ODT) disintegrating tablet 4 mgJump to med 4 mg, Oral, Every 6 hours PRN, nausea, vomiting, Starting on Sun08/20/23 at 1102, Use oral route first, if tolerated. Formulation requires tablet remain in sealed package until immediately prior to dose being administered. Or ondansetron (ZOFRAN) injection 4 mgJump to med 4 mg, Intravenous, Every 6 hours PRN, nausea, vomiting, Starting on Sun08/20/23 at 1102, Use oral route first, if tolerated. Care Teams (unrecognized sec tion and content) Shut Off Worker Relationship Specialty Start Date End Date No, Physician [facility] PCP - General 08/18/23 Shut Off Worker Relationship Specialty Start Date End Date No, Physician [facility] PCP - General 08/18/23 Shut Off Worker Relationship Specialty Start Date End Date No, Physician [facility] PCP - General 08/18/23 Shut Off Worker Relationship Specialty Start Date End Date No, Physician [facility] PCP - General 08/18/23 Shut Off Worker Relationship Specialty Start Date End Date No, Physician [facility] PCP - General 08/18/23 Shut Off Worker Relationship Specialty Start Date End Date Amadeo Silver MD [address] [address] PCP - General Family Medicine 12/12/23 Shut Off Worker Relationship Specialty Start Date End Date Amadeo Silver MD [address] [address] PCP - General Family Medicine 12/12/23 Shut Off Worker Relationship Specialty Start Date End Date Amadeo Silver MD [address] [address] PCP - General Family Medicine 12/12/23 Shut Off Worker Relationship Specialty Start Date End Date Amadeo Silver MD [address] [address] PCP - General Family Medicine 12/12/23 Shut Off Worker Relationship Specialty Start Date End Date Amadeo Silver MD [address] [address] PCP - General Family Medicine 12/12/23 Shut Off Worker Relationship Specialty Start Date End Date Amadeo Silver MD [address] [address] PCP - General Family Medicine 12/12/23 Shut Off Worker Relationship Specialty Start Date End Date Amadeo Silver MD [address] [place] [address] PCP - General Family Medicine 12/12/23 Shut Off Worker Relationship Specialty Start Date End Date Amadeo Silver MD [address] [address] PCP - General Family Medicine 12/12/23 Shut Off Worker Relationship Specialty Start Date End Date Amadeo Silver MD [address] [address] PCP - General Family Medicine 12/12/23 Shut Off Worker Relationship Specialty Start Date End Date Amadeo Silver MD [address] [address] PCP - General Family Medicine 12/12/23 FOR RECORDS PERTAINING TO PATIENTS WHO ARE OR HAVE BEEN ENROLLED IN A CHEMICAL DEPENDENCY/SUBSTANCEABUSE PROGRAM, SOME INFORMATION MAY BE OMITTED. This clinical summary was aggregated from multiple sources. Caution should be exercised in using it in the provision of clinical care. This summary normalizes information from multiple sources, and as a consequence, information in this document may materially change the coding, format and clinical context of patient data. In addition, data may be omitted in some cases. CLINICAL DECISIONS SHOULD BE BASED ON THE PRIMARY CLINICAL RECORDS. [facility] [employer] [facility]. provides no warranty or guarantee of the accuracy or completeness of information in this document.
[2025-03-26 18:28] LABS: Troponin T High Sens 2 HR 13 ng/L (<=22)
--- OUTSIDE RECORDS SUMMARY | 2025-03-26 18:53 | XMS RPT_ITS | CCD ---
Author Organization [facility] Care Team Providers Care Professor Of Religion Name Role Phone INDURTI, MARCO V Admitting Unavailable INDURTI, MARCO V Attending Unavailable MELITON, LEIDY R Admitting Unavailable MELITON, LEIDY R Attending Unavailable GROUP, PSYCH COVERAGE Consulting Unavailabl e TAMMY RUTHMED Admitting Unavailable NAMITA RUTH Attending Unavailable INDURTI, MARCO V Admitting Unavailable INDURTI, MARCO V Attending Unavailable GINNY GUTIÉRREZ Attending Unavailable Unavailable Primary Care Provider Unavailabl e GINO GUTIERREZ Attending Unavailable WALI HOLM Consulting Unavailable WALI HOLM Admitting Unavailable JESSIE DAI Attending Unavailable [...] Unavailable Amadeo Silver Primary Care Unavailable Efraín, [place] Attending Unavailable Efraín, [place] Referring Unavailable Amadeo Silver Primary Care Unavailable Efraín, [place] Attending Unavailable AMADEO SILVER Primary Care Unavailable NO, PHYSICIAN Primary Care Unavailable AMADEO SILVER Primary Care Unavailable ADLY, LAINEY ADLY LAINEY Attending Unava ilable AMADEO SILVER Primary Care Unavailable ADLY, LAINEY ADLY LAINEY Attending Unava ilable GUILLERMOY, LAINEY ADLY LAINEY Attending Unava ilable AMADEO SILVER Primary Care Unavailable ADLY, LAINEY ADLY LAINEY Attending Unava ilable AMADEO SILVER Primary Care Unavailable ADLY, LAINEY ADLY LAINEY Attending Unava ilable AMADEO SILVER Primary Care Unavailable ADLY, LAINEY ADLY LAINEY Attending Unava ilable AMADEO SILVER Primary Care Unavailable AMADEO SILVER Primary Care Unavailable ADLY, LAINEY ADLY LAINEY Attending Unava ilable GUILLERMOY, LAINEY ADLY LAINEY Attending Unava ilable AMADEO SILVER Primary Care Unavailable ADLY, LAINEY ADLY LAINEY Attending Unava ilable AMADEO SILVER Primary Care Unavailable ADLY, LAINEY ADLY LAINEY Attending Unava ilable AMADEO SILVER Primary Care Unavailable ADLY, LAINEY ADLY LAINEY Attending Unava ilable AMADEO SILVER Primary Care Unavailable ADLY, LAINEY ADLY LAINEY Attending Unava ilable AMADEO SILVER Primary Care Unavailable Allergies Allergy Classification Reported Allergen(s) Allergy Type Date of Onset Reaction(s) Facility (20 sources) MITE EXTRACT Drug Allergy 9 Other (See Comments) [place] (20 sources) redtop grass pollen extract Drug Allergy 9 Other (See Comments) [place] (2 sources) MITE EXTRACT; Translations: [MITE EXTRACT] Drug Allergy 9 [facility] Repository (2 sources) GRASS POLLEN-RED TOP, STANDARD; Translations: [GRASS POLLEN-RED TOP, STANDARD] Propensity to adverse reactions to drug (disorder) 9 [facility] Medications Current Medications Medication Drug Class(es) Dates Sig (Normalized) Sig (Original) azithromycin (ZITHROMAX) 500 mg in dextrose 5% 250 mL IVPB (2 sources) Start: 06-03-2019 azithromycin (ZITHROMAX) 500 mg in dextrose 5% 250 mL IVPB Start: 06-03-2019 End: 06-03-2019 azithromycin (ZITHROMAX) 500 mg in dextrose 5% 250 mL IVPB dextromethorphan hydrobromide 2 mg/ml / guaiFENesin 20 mg/ml oral solution (2 sources) Uncompetitive X-vunmee-E-aspartate Receptor Antagonist, Sigma-1 Agonist Start: 06-04-2019 dextromethorphan-guaiFENesin (ROBITUSSIN-DM) 10-100 MG/5ML syrup Take 10 mLs by mouth every 4 hours as needed for Cough 1 Bottle 0 06/04/2019 Active Start: 06-03-2019 dextromethorph an-guaiFENesin (ROBITUSSIN-DM) 10-100 MG/5ML liquid 10 mL ergocalciferol 1.25 mg oral capsule 08/21/23 1326 Rate Verify at 08/21/23 1326 [...] content is delusional. 54.4 kg (120 lb) 5' 7 Body mass index is 18.79 kg/m . Lab Review: Lab Results Component Value Date TSH 0.05 (L) 08/18/2023 TSH 0.05 (L) 08/18/2023 M4WBDUN 217 (H) 08/22/2023 K0FNHIK 19.8 (H) 08/18/2023 THYROIDAB 278.1 (H) 10/19/2019 [...] Aba Carlton Admit Date: [id number] MR #: [id number] : 2000 Perpetual Assessment Aba Carlton is [...] thyroiditis following multiple admissions. He presented to [facility] emergency room with complaints of needing [...] injection 100 mg 100 mg Intravenous Q8H IMER Mauro Keys MD 100 mg at 08/21/23 0731 methIMAzole (TAPAZOLE) tablet 20 mg 20 mg Oral Q6H Mauro Lord MD 20 mg at 08/21/23 0724 nicotine (NICODERM CQ) 21 mg/24 hr 1 patch 1 patch Transdermal Daily Can Maldonado 1 patch at 08/21/23 0820 ondansetron (ZOFRAN-ODT) [...] IMER Mauro Keys MD 5 drop at 08/21/23 0723 propranoloL (INDERAL) tablet 40 mg 40 mg Oral Q6H Mauro Lord MD 40 mg at 08/21/23 0724 sodium chloride (PF) (NS) flush 5 mL 5 mL Intravenous PRN Mauro Keys MD And sodium chloride (PF) (NS) flush 5 mL 5 mL Intravenous Q8H IMER Mauro Keys MD 5 mL at 08/21/23 [...] 0.05 (L) 08/18/2023 TSH 0.05 (L) 08/18/2023 K0RARLT >651 (H) 08/20/2023 U3FYMBY 19.8 (H) 08/18/2023 THYROIDAB 278.1 (H) 10/19/2019 [...] Electronically signed by Fabienne MURO 08/20/2409:49 AM [facility] PROGRESS NOTE Assessment and Plan Aba Carlton [...] in Direct Patient Care: 5 Narrative: This carton catcher attempted to visit the pt.Aba, while rounding. Pt resting and unavailable at this time. Visit rescheduled for patient and/or family convenience and pastoral care availability. Pastoral Care team will remain available to support patient and family PRN. 08/20/23 1449 Visit Background Visit With Patient Not Available Visit By Staff Vice Principal Visit Progression Attempt Visit Requested By Vice Principal Initiated Visit Source Vice Principal Initiated Visit Type Inpatient;Rounding Visit Circumstances and Events Routine Visit Visit Length (minutes) 5 Patient's Response to Pastoral Care Timing of Visit Not Optimal. Visit Rescheduled Visit Planning PRN Spiritual Assessment Not assessed during visit Episcopal Assessment Not assessed during this visit Family assessment provided? Not assessed during this visit Signature: Amy Oneill MDiv Staff Vice Principal [facility] On-Call Vice Principal /Nickie On-Call Vice Principal She/Her/Hers documented in this encounter [facility] 08-23-2023 Note Formatting of this n ote might be different from the original. Dr Goldman aware patient will likely be medically ready for discharge on Wednesday 08/23 per [facility] patient will admit back to inpatient Behavioral Health after medical discharge [facility] 08-23-[address] Goldman aware patient will likely be medically ready for discharge on Wednesday 08/23 per [facility]. [facility] patient will admit back to inpatient [...] Outcome: Partially Met documented in this encounter [facility] 08-23-2023 Note Formatting of this n ote might be different from the original. Problem: Actual or potential alteration in health Goal: Absence of healthcare acquired conditions Outcome: Partially Met Goal: Knowledge of Interdisciplinary Plan of Care Outcome: Partially Met Goal: Knowledge of Enviroment Outcome: Partially Met [facility] 08-22-2023 Consult note Associated Order (s): IP CONSULT TO BEHAVIORAL HEALTH Psychiatry C/L team already following patient. Thanks [facility] Work Phone: 08-22-2023 Consult note Associated Order (s): IP CONSULT TO BEHAVIORAL HEALTH Psychiatry C/L team already following patient. Thanks Associated Order(s): IP CONSULT TO BEHAVIORAL HEALTH Dr. Goldman is following the patient. Thanks Associated Order(s): IP CONSULT TO BEHAVIORAL HEALTH Behavioral Health Consult Patient Name: Aba Carlton Admit Date: 08/20/2023 MR #: [id number] : 2000 Assessment Aba Carlton is a [...] hospitalization, incarceration, assignment of a guardian and [facility] placement in the last four years. He has been consistently manic since 2020 but also has a history of depression [...] theft, DV,assault Trauma History: denies History: none Confucianist: Access to firearms: denies. Family counseled on [...] tablet 20 mg, 20 mg, Oral, Q6H IMER ondansetron (ZOFRAN-ODT) disintegrating tablet 4 mg, 4 [...] 08/20/2023 1:35 PM documented in this encounter [facility] 08-22-2023 Note Formatting of this n ote might be different from the original. Problem: Actual or potential alteration in health Goal: Absence of healthcare acquired conditions Outcome: Partially Met Goal: Knowledge of Interdisciplinary Plan of Care Outcome: Partially Met Goal: Knowledge of Enviroment Outcome: Partially Met [facility] 08-21-2023 Note Formatting of this n ote might be different from the original. Problem: Actual or potential alteration in health Goal: Absence of healthcare acquired conditions Outcome: Partially Met Goal: Knowledge of Interdisciplinary Plan of Care Outcome: Partially Met Goal: Knowledge of Enviroment Outcome: Partially Met [facility] 08-21-2023 Consult note Associated Order (s): IP CONSULT TO BEHAVIORAL HEALTH Dr. Goldman is following the patient. Thanks [facility] 08-20-2023 Consult note Associated Order (s): IP CONSULT TO BEHAVIORAL HEALTH Behavioral Health Consult Patient Name: Aba Carlton Admit Date: 08/20/2023 [id number] [id number] 2000 Assessment Aba Carlton is a [...] hospitalization, incarceration, assignment of a guardian and mcc placement in the last four years. He has been consistently manic since 2020 but also has a history of depression [...] theft, DV,assault Trauma History: denies History: none Confucianist: Access to firearms: denies. Family counseled on [...] tablet 20 mg, 20 mg, Oral, Q6H IMER ondansetron (ZOFRAN-ODT) disintegrating tablet 4 mg, 4 [...] questions. Carey Goldman MD 08/20/2023 1:35 PM [facility] 08-20-2023 History and physical note [facility]IST[facility] AND PHYSICAL -- [facility] Patient Name: Aba Carlton : 2000 MR #: [id number] Admit Date: 08/20/2023 Physicians: No, Physician (Family); [...] Has nicotine patch Residence prior to admission: [facility] Quality Measures DVT Prophylaxis: lovenox Dixon Catheter: absent Medication Reconciliation: Verified Admitted with these risk variables:None. Please see assessment and plan for further details. Estimated Date of Discharge greater than 2 midnights Code Status Full Code; code status verified on 08/20/2023 with patient (capacity intact) Chief Complaint Thyroid Staci History of Present Illness Aba Carltno is a 23 y.o. male patient of [...] SSKI. Monitor TFTs Schizoaffective disorder-psychiatry consult, continue Ade Dalal [facility] Work Phone: 08-20-2023 History and physical note [facility] HISTORY AND PHYSICAL -- [facility] Patient Name: Aba Carlton : 2000 MR #: [id number] Admit Date: 08/20/2023 Physicians: Brigitte, Physician (Family); No ref. provider found (Referring) [...] Has nicotine patch Residence prior to admission: [facility] Quality Measures DVT Prophylaxis: lovenox Dixon Catheter: [...] continue Depakote, Invega documented in this encounter [facility] 03-29-2023 Hospital Discharge instructions Damir Elliott APRN-CNP - 03/29/2023 8:26 AM EST Follow up with your PCP/PM&R documented in this encounter [facility] 11-01-2021 Note HNO ID: [id number] Author: Fred Marks APRN.CNP Service: ? Author [...] Psychiatry next month. OBJECTIVE: Medications reviewed in [facility] REVIEW OF SYSTEMS GENERAL: No weight loss, [...] Stable - Continue current medications Fred Marks APRN.STRAPPER OPERATOR DATE: November 01, 2021 TIME: 12:13 PM [facility] 11-01-2021 History of Present illness Narrative PROGRESS [...] Psychiatry next month. OBJECTIVE: Medications reviewed in [facility] REVIEW OF SYSTEMS GENERAL: No weight loss, [...] TIME: 12:13 PM documented in this encounter [facility] Evaluation note No assessment inform ation available [facility] Work Phone: Evaluation note Diagnosis Primary hypertension- Primary Unspecified essential hypertension Depression, unspecified depression type Other specified hypothyroidism [facility] Knee strain, left, initial encounter- [...] crisis or storm [facility] Other schizophrenia (HCC) Hyperthyroidism [...] crisis or storm [facility] Diagnosis Other schizophrenia (HCC) Hyperthyroidism Thyrotoxicosis [...] crisis or storm [facility] Other schizophrenia (HCC) Hyperthyroidism Thyrotoxicosis [...] Instructions You need to discuss with your window caser whom your primary care physician is going to be in schedule follow-up. You should carry a list of your medications with you Your Depakote level today was less than 3. You need to make sure you are taking your medicines and you need to mention this value to your doctors.[facility] Work Phone: [facility] Work Phone: Summary Purpose Family History [...] FoundDocuments on File Type Date Recorded Patient Backup Administrative Coordinator Expl anation Advance Directives and Living Will Power of Health Technical Writer Latest Code Status on File Code Status Date Activated Date Inactivated Comments Full Code 06/03/2019 9:34 AM Full Code 08/14/2018 12:52 AM 08/19/2018 3:49 PM Full Code 05/14/2018 8:21 AM 05/14/2018 5:04 PM Full Code 05/14/2018 8:21 AM 05/14/2018 8:21 AM Full Code 04/27/2018 10:26 PM 04/30/2018 3:19 PM Documents on File Type Date Recorded Patient Backup Administrative Coordinator Expl anation Advance Directives and Livin g Will 11/12/2019 4:34 PM Guardianship Papers 10/31/2019 11:17 AM Latest Code Status on File Code Status Date Activated Date Inactivated Comments Full Code - Unverified 11/12/2019 8:22 PM 11/19/2019 4:57 PM Full Code - Unverified 10/20/2019 5:30 AM 10/30/2019 8:55 PM Documents on File Type Date Recorded Patient Backup Administrative Coordinator Expl anation Advance Directives and Livin g Will 11/20/2019 2:01 PM Guardianship Papers 10/31/2019 11:17 AM Latest Code Status on File Code Status Date Activated Date Inactivated Comments Full Code 11/20/2019 3:19 PM 11/22/2019 9:26 PM Full Code - Unverified 11/12/2019 8:22 PM 11/19/2019 4:57 PM Documents on File Type Date Recorded Patient Backup Administrative Coordinator Expl anation Advance Directives and Livin g Will 11/20/2019 2:01 PM Guardianship Papers 10/31/2019 11:17 AM Latest Code Status on File Code Status Date Activated Date Inactivated Comments Full Code 11/20/2019 3:19 PM 11/22/2019 9:26 PM Full Code - Unverified 11/12/2019 8:22 PM 11/19/2019 4:57 PM Full Code - Unverified 10/20/2019 5:30 AM 10/30/2019 8:55 PM Documents on File Type Date Recorded Patient Backup Administrative Coordinator Expl anation Advance Directives and Livin g Will 12/26/2019 5:40 PM Guardianship Papers 10/31/2019 11:17 AM Guardianship Papers 12/19/2019 11:24 PM 07/2019 Latest Code Status on File Code Status Date Activated Date Inactivated Comments Full Code - Unverified 12/26/2019 8:50 PM 01/06/2020 6:4 8 AM Full Code 11/20/2019 3:19 PM 11/22/2019 9:26 PM Documents on File Type Date Recorded Patient Backup Administrative Coordinator Expl anation Advance Directives and Livin g Will 11/06/2019 3:09 AM Guardianship Papers 10/31/2019 11:17 AM Latest Code Status on File Code Status Date Activated Date Inactivated Comments Full Code - Unverified 10/20/2019 5:30 AM 10/30/2019 8:55 PM Documents on File Type Date Recorded Patient Backup Administrative Coordinator Expl anation Advance Directives and Livin g Will 10/20/2019 12:01 AM Advance Directive Response Recorded Date/ Time Living Will No August 24, 2021 8 :55pm Power of Health Technical Writer No August 24, 2021 8:55pm Advance Directive Response Recorded Date/ Time Living Will No October 02, 2021 5:20pm Power of Health Technical Writer No October 02 5:20pm Documents on File Type Date Recorded Patient Backup Administrative Coordinator Expl anation Guardianship Papers 12/19/2019 11:24 PM [...] Documents on File Type Date Recorded Patient Backup Administrative Coordinator Expl anation Guardianship Papers 12/19/2019 11:24 PM [...] Discharge Instructions * Discharge Instr - Diet* Marya Haas RN - 06/04/2019 2:36 PM [...] most local grocery stores, pharmacies, and chain [employer]-stores. ? If you have any questions about [...] Agent's Name Healthcare Agent's Phone Number 06/03/19 9937 No, patient does not have an advance directive for healthcare treatment -- -- -- -- -- Admitting Physician: Wali Holm DO PCP: No primary care provider on file. Discharging Nurse: Discharging Hospital Unit/Room#: 0441/0441-01 Discharging Unit Phone Number: Emergency Contact: Extended Emergency Contact Information Primary Emergency Contact: Soledad Little Address: [address] [place] [address] [place] Relation: Parent Past Surgical History: History reviewed. No pertinent surgical history. Immunization History: Immunization History Administered Date(s) Administered Tdap (Boostrix, Adacel) 08/13/2018 Active Problems: Patient Active Problem List Diagnosis Code Self-mutilation Z72.89 Overdose, intentional self-harm, initial encounter ([facility]) T50.902A Gabapentin overdose T42.6X1A Cluster B personality disorder ([facility]) F60.89 Schizoaffective disorder, bipolar type ([facility]) F25.0 Attention deficit hyperactivity disorder (ADHD), combined type F90.2 Cannabis dependence ([facility]) F12.20 Altered mental state R41.82 Acute alcoholic intoxication with complication ([facility]) F10.929 Schizoaffective disorder ([facility]) F25.9 Suicidal ideation R45.851 Pneumonia due to organism J18.9 Influenza A J10.1 Adenovirus infection B34.0 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 Isolation/Infection: Isolation Droplet Patient Infection Status Infection Onset Added Last Indicated Last Indicated By Review Planned Expiration Resolved Resolved By INFLUENZA 06/03/19 06/03/19 06/03/19 Respiratory Virus PCR Panel 06/10/19 07/03/19 Adenovirus 06/03/19 06/03/19 06/03/19 Respiratory Virus PCR Panel Resolved C-diff Rule Out 06/03/19 06/04/19 C DIFF TOXIN/ANTIGEN (Ordered) 06/04/19 Isolation/Infection Ip, RN Nurse Assessment: Last Vital Signs: BP 107/61 Pulse 109 Temp 98.2 F (36.8 C) Resp 16 Ht 5' 7 (1.702 m) Wt 138 lb (62.6 kg) SpO2 98% BMI 21.61 kg/m Last documented pain score (0-10 scale): Pain Level: 4 Last Weight: Wt Readings from Last 1 Encounters: 06/03/19 138 lb (62.6 kg) Mental Status: {IP PT MENTAL STATUS:} IV Access: { IKRK IV ACCESS:717395331} Nursing Mobility/ADLs: Walking {CHP DME ADLs:782613752} Transfer {CHP DME ADLs:137532579} Bathing {CHP DME ADLs:502464381} Dressing {CHP DME ADLs:513833626} Toileting {CHP DME ADLs:401985249} Feeding {CHP DME ADLs:891173428} Rn Acute Dialysis {CHP DME ADLs:235583867} Med Delivery { KIRK MED Delivery:365837478} Wound Care Documentation and Therapy: Elimination: Continence: Bowel: {YES / NO:} Bladder: {YES / NO:} Urinary Catheter: {Urinary Catheter:212447324} Colostomy/Ileostomy/Ileal Conduit: {YES / NO:} Date of Last BM: Intake/Output Summary (Last 24 hours) at 06/04/2019 1436 Last data filed at 06/04/2019 0658 Gross per 24 hour Intake 2028 ml Output Net 2028 ml I/O last 3 completed shifts: In: 3956 [P.O.:900; I.V.:1128; IV Piggyback:1927] Out: - Safety Concerns: { KIRK Safety Concerns:064185294} Impairments/Disabilities: { KIRK Impairments/Disabilities:130691414} Nutrition Therapy: Current Nutrition Therapy: { KIRK Diet List:378724233} Routes of Feeding: {CHP DME Other Feedings:630625759} Liquids: {Web Page Developer liquid thickness:67647} Daily Fluid Restriction: {CHP DME Yes amt example:191502343} Last Modified Barium Swallow with Video (Video Swallowing Test): {Done Not Done Date:} Treatments at the Time of Hospital Discharge: Respiratory Treatments: Oxygen Therapy: {Therapy; copd oxygen:87402} Ventilator: {[facility] Vent List:417515909} Rehab Therapies: {THERAPEUTIC INTERVENTION:9863556354} Weight Bearing Status/Restrictions: {[facility] Weight Bearin} Other Medical Equipment (for information only, NOT a DME order): {EQUIPMENT:290181857} Other Treatments: Patient's personal belongings (please select all that are sent with patient): {P DME Belongings:609855881} RN SIGNATURE: {Esignature:774243527} CASE MANAGEMENT/SOCIAL WORK SECTION Inpatient Status Date: Readmission Risk Assessment Score: Readmission Risk Risk of Unplanned Readmission: 16 Discharging to Facility/ Agency Name: Address: Phone: Fax: Dialysis Facility (if applicable) Name: Address: Dialysis Schedule: Phone: Fax: Principal Quality Engineer/Assistant Pastry Chef signature: {Esignature:108464453} PHYSICIAN SECTION Prognosis: {Prognosis:9267115152} Condition at Discharge: {MH Patient Condition:146238127} Rehab Potential (if transferring to Rehab): {Prognosis:5961962564} Recommended Labs or Other Treatments After Discharge: Physician Certification: I certify the above information and transfer of Aba Carlton is necessary for the continuing treatment of the diagnosis listed and that he requires {Admit to Appropriate Level of Care:60106} for {GREATER/LESS:244094940} 30 days. Update Admission H&P: {CHP DME Changes in HandP:815600591} PHYSICIAN SIGNATURE: {Esignature:816102529} documented in this encounter* Discharge Instr - AVS First Page* Cindy Nieto MD - 12/08/2019 3:59 PM EDT Follow up with Dr. Nieto on SundayJan 13 at 1:00 PM. * Discharge Instr - Care Coordination* Emerita Vidal MSW LISW-S - 11/28/2019 11:58 AM EDT documented in this encounter* Attachments The following attachments cannot be sent through Care Everywhere. * Dehydration (Bulgarian) documented in this encounter* Discharge Instr - [...] office on 12/10/19 at 11:00 AM. Call [phone] if you need to reschedule. If possible, have thyroid tests done at [facility] a few days before your appointment. Lab orders are in the computer. * Discharge Instr - Care Coordination* Emerita Vidal MSW LISW-S - 10/20/2019 4:[address] HEARINGS: Patient has been ordered into Assisted Outpatient Treatment (AOT) which among other things requirespatient to attend weekly court hearings. Patient's notification for the first review hearing is in his discharge paperwork and your [facility] case management rn will review the program with you. Please plan to attend the review hearing on November 02 at 11:15 AM at the [place] [address]. 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 Weight Loss-5% loss or greater, (x 2 months per pt) 3. Fat Loss-No significant subcutaneous fat loss, 4. Muscle Loss-No significant muscle mass loss, 5. Fluid Accumulation-No significant fluid accumulation, 6. Glass Furnace Operator Strength-Not measured Nutrition Risk Level: Low Nutrient Needs: Estimated Daily Total Kcal: 7269-0051 kcals/day Estimated Daily Protein (g): 60-75 gm/day [...] loss x 2 months per pt report [place] Body Wt: 148 lb (67.1 kg), % [place] 93% BMI Classification: BMI 18.5 - 24.9 Normal Weight Nutrition Interventions: Continue current diet, Start ONS Continued Inpatient Monitoring, Education Not Indicated Nutrition Evaluation: Evaluation: Goals set Goals: Meet greater than 50% of estimated nutrient needs with PO. Monitoring: Meal Intake, Supplement Intake, Weight Contact Number: [phone] * Beatrice Saba, PT - 06/04/2019 1:45 PM EST Physical Therapy DATE: 06/04/2019 NAME: Aba aCrlton : 2000 Patient not seen this date [...] transferred to palliative care. No further needs. BEATRICE SABA PT * Radha Quintanilla RCP - [...] Vu PA-C - 06/04/2019 12:57 PM EST [facility] [facility] IN-PATIENT SERVICE [facility] Progress Note 06/04/2019 12:57 PM Name: Aba Carlton Acct: [id number] Room: 0441/0441-01 IP Day: 1 Admit Date: 06/03/2019 3:45 AM [...] 24 hour Intake 8 ml Output Net 8 ml Labs: Hematology: Recent Labs 06/03/19 0548 [...] No results for input(s): PROT, LABALBU, LABA1C, Z3GWOBF, D3MDVVW, FT4, TSH, AST, ALT, LDH, GGT, ALKPHOS, LABGGT, BILITOT, BILIDIR, AMMONIA, AMYLASE, LIPASE, LACTATE, CHOL, HDL, LDLCHOLESTEROL, CHOLHDLRATIO, TRIG, VLDL, AOH77MT, PHENYTOIN, PHENYF, URICACID, POCGLU in the last [...] eye on him. Patient continue to refuse. LE * Judy Sky RN - 06/03/2019 7:01 [...] 06/03/2019 12:57 PM EST Secure messaged Sully PA regarding mother's request for psych eval and [...] Aba Carlton Admit Date: 11/12/2019 MR #: [id number] : 2000 Physicians: Adrienne Arcos CNP (Family); [...] Free T4: 2.6 10/27/19: Free T4: 2.9 7/10/20: Free T4: 5.1 10/21/19 Na 141, K [...] file Gets together: Not on file Attends confucianist service: Not on file Active member of [...] Azevedo MS, JEFFRY, LD Office * Leta Cornejo CTRS - 11/19/2019 9:15 AM EDT 0440-0962 Goal Group: PT brought self to group, [...] for pt safety. 0220 Pt approached this contract writer at the nurse's station asking for a hot meal. Explained to pt thatthe hot meals were for late admissions that had not eaten in awhile. Pt then asked to adjust his breakfast to extra pancakes and icelandic toast and 4 syrups. Pt was told [...] Santamaria CNP - 11/18/2019 5:15 PM EDT [facility] Medicine Inpatient Consult Follow-up 11/18/2019 Emerita Santamaria CNP Patient: Aba Carlton Date of : 2000 (19 y.o.) PCP: Adrienne Arcos CNP Referring Provider: Carey Goldman MD Consult: Lanette Cordon MD: Hospitalist assistance with medical management Of note, this patient was admitted to [facility] following the declaration of aNational State of Emergency due to the COVID-19 pandemic, as issued by the accounting intern on 06/27/2019. ASSESSMENT/PLAN: Principal Problem: Schizoaffective disorder, [...] since he is getting more to eat. 8/4 Feels short of breath and requesting breathing [...] Radiology/Imaging: Reviewed 11/18/19 5:15 PM * Emerita Vidal, IAN Hayes 11/18/2019 4:25 PM EDT Patient reviewed with Dr. Goldman. Patient reports his mood is fine. Patient has been attending groups to this point. Behavior per nursing cooperative and compliant with medications. Follow up appointments scheduled with [facility] and on AVS. environmental services lead continues to follow. * Fabienne Posada RN - 11/18/2019 3:54 PM EDT 1550 Pt [...] advised Pt he could talk to the HEAT AND FROST INSULATOR HELPER tomorrow when she returns. Pt then eating fresh fruit with no issues. 2100 Pt up and about the unit remains wide eyed, watchful. Smiling inappropriately at times, as if responding to internal stimulus. Pt denies having any hallucinations. 0 Pt given Trazodone 50 mg PO and Vistaril 50 mg Po for sleep and anxiety as requested. 2245 Pt resting quietly in bed at this time. * Carey Goldman MD - 11/18/2019 3:27 PM EDT Psychiatry Progress Note Patient Name: Aba Carlton Admit Date: MR #: [id number] : 2000 Perpetual Assessment Aba Carlton is a 19 y.o. male presenting with brook and psychosis and thyrotoxicosis due to non-compliance [...] hyperthyroidism. He returns in acute psychosis with brook for court ordered hospitalization. He is calmer today but without insight. P: Add oral Invega 6 mg and resume thyroid medications Unpredictable precautions Individual and group counseling Change prn medications to Geodon, as he seemed to respond well to it last hospital stay. [place] New internal [...] know when therapy is? [facility]. 13:00 Attending therapy group. Just prior to attending pt wanted a snack, this contract writer took pt to the kit door asking what he would like to eat. Pt had difficulty deciding, therefore, since it was time for group, this contract writer suggested he attend group and to seek [...] Name: Aba Carlton Admit Date: MR #: [id number] : 2000 Perpetual Assessment Aba Carlton is a 19 y.o. male presenting with brook, psychosis, non-compliance and failure to complywith his [...] hyperthyroidism. He returns in acute psychosis with brook for court ordered hospitalization. He is calmer [...] my care plan include thyrotoxicosis. Following for brook and psychosis Interval History: Aba continues to [...] Follow up appointments are through AOT and [facility]. environmental services lead continues to follow. * Kathrin Jacinto RN - 11/17/2019 3:53 PM EDT 1535 [...] alert and oriented. Patient reports to this contract writer, my appetite is great, and I slept great. Denies any suicidal and homicidal ideations and voices. Denies anxiety and depression at this time. Has been out on unit this shift. Eats meals in dining room. Takes meds without incident. Completed ADLS. Eye contactgood with this contract writer and contracts for safety. GOAL: Go home. 1635 Eating supper in dining room 1637 Patient asked this contract writer to speak with Grandmother Shruti with RANDEE signed by patient. UpdatedGrandmother on patient condition. Grandmother advised patient would be returning to her home at discharge and to let staff know to call anytime. 174 Patient to nursing station asking for someone to give test because he ate peanut butter sandwich and a Bee bug and it is hard for me to breathe. Patient does not exhibit any signs or symptoms of difficulty breathing at this time. Patient is continuously asking staff for something to eat and ask this contract writer for a hot meal from the kitchen. Advised we do not have hot meals in our kitchenette and he became short with this contract writer. This contract writer gave patient jello. Patient finished jello andwanted [...] something to drink, Apple juice. When this contract writer got his apple juice, he stated, I want orange juice, I want a lot of it. Given one Apple Juice and one Hollywood Juice at this time. 2100 VS 124/65, 111, 96% 2105 Patient came to nursing station and chose another snack of cheese cubes at this time. 2118 Took HS Inderal at this time without incident. 2139 Patient asking for a warmed blanket. His room is very chilly at this time. Warmed blanket per request at this time. 2210 Patient in room in bed with head at foot of bed at this time. 2250 Patient continues to rest in bed with head at foot of bed at this time. * Leta Cornejo CTRS - 11/17/2019 1:15 PM EDT [id number] Recreation Therapy: Pt out in [facility], peering around corner when contract writer entered unit. Pt agreed to attend group. [...] group to learn new leisure skill of [employer] game. Pt struggled to retain all directions and apply them, thus requiring cueing throughout game. PT struggled to complete simple single digit math. Pt won game and voiced enjoyment. PT shared with contract writer that he was willing to allow blood draw to test his thyroid, thus pt was instructed to inform nursing staff and pt did so right after group. * Cata Morfin, CRISTAL - 11/17/2019 12:50 PM EDT Pt at [...] Aba Carlton Admit Date: 11/12/2019 MR #: [id number] : 2000 Physicians: Adrienne Arcos CNP (Family); [...] file Gets together: Not on file Attends confucianist service: Not on file Active member of [...] you. Electronically signed by: Jay Lovell PA-C, [facility] 11/17/19 4:19 PM * Lilly Ta [...] Name: Aba Carlton Admit Date: MR #: [id number] : 2000 Perpetual Assessment Aba Carlton is a 19 y.o. male presenting with brook, psychosis and thyrotoxicosis. Diagnosis & Plan/Recommendations PRINCIPAL [...] hyperthyroidism. He returns in acute psychosis with brook for court ordered hospitalization. He is calmer today but still hostile and without insight. He demands to be discharged and denies court involvement. P: Add oral Invega 6 mg and resume thyroid medications Unpredictable precautions Individual and group counseling Change prn medications to Geodon, as he seemed to respond well to it last hospital stay. [place] for [place] from [place] ELENA higgins with grandparents and AOT program New internal medicine consult for physical exam and medical management Lab and radiology studies as appropriate Comorbid issues impacting my care plan include thyrotoxicosis. Following for brook, psychosis, non-compliance with essential medical treatment Interval [...] fill out guardianship application as requested by [employer]. Review of Systems: Constitutional, cardiac, pulmonary, neurologic, [...] Carey Goldman MD 11/16/2019 7:49 PM * KassieManuelRAY - 11/16/2019 3:32 PM EDT 1527: Patient [...] patient acknowledged understanding and returned to the [facility]. 1630: Patient retrieved supper tray from the dietary cart and returned to the lounge to eat, calm composed at this time. 1730: Patient approached nurse's station, states toilet overflowed, this nurse went to room to confirm and then called Maintenance, patient then requested snacks, declined request at this time. 1745: Maintenance arrived and cleared the toilet, housekeeping was notified to clean the bathroom/room floor. 0: Patient seated in room, calm composed upon [...] the dining bone and returned to the unge. 2015: Patient approached nurse's station, requested coffee, [...] requested ice cream, this nurse provided from [facility]. 2151: Patient brought ice creams to nurse's station, asking to return them, then asking to change his breakfast order, patient was redirectable as menu selections cannot be changed with the Dietary project car pilot. Patient returned to the [facility]. 2300: Patient pacing the hallways, calm composed, ambulating [...] focus was on Inspiration and Spiritual Values. Vice Principal role introduced and how to contact if follow up is requested. Vice Principal Celia Morfin MDiv [facility] Care Department [phone] office [phone] pager [phone] on-call pager (after 5pm and weekends) 11/16/19 1000 Clinical Encounter Type Visit Type Non Crisis Non Crisis Visit Group Visited With Patient Visited By Other (comment) (Vice Principal) Visit Length (minutes) 45 * Julianne Santamaria RN - 11/16/2019 10:29 AM EDT 0846: Patient has been up ambulating the unit, ate breakfast in the [facility] area. Maintaining appropriate conversation and eye contact. [...] the nurse's station requesting a taxi to [place] tomorrow, pt voices he will be discharged. Pt informed ifhe is discharged then we will be able to get him transportation set up with his social sciences lecturer, pt agrees. Pt returning to the nurse's station a few minutes later to request the phone number to [facility] in [place], pt walked and way, returned and said nevermind would not elaborate on thereason he no [...] his tray be re-heated, then requested additional icelandic dressing for salad. Patient agreed to interaction,patient [...] given, patient is calm composed. * Re Arriaga, TUAN - 11/15/2019 1:20 PM EDT Recreation Therapy: Pt in and out of group room as he was waiting for breathing treatment. Pt came to group to stay, however, group was wrapping up. * Carey Goldman MD - 11/15/2019 12:28 PM EDT Psychiatry Progress Note Patient Name: Aba Carlton Admit Date: MR #: [id number] : 2000 Perpetual Assessment Aba Carlton is a 19 y.o. male presenting with brook and psychosis, recurrent due to non-compliance as [...] hyperthyroidism. He returns in acute psychosis with brook for court ordered hospitalization. He is calmer today but still hostile and without insight. He demands to be discharged and denies court involvement. P: Add oral Invega 6 mg and resume thyroid medications Unpredictable precautions Individual and group counseling Change prn medications to Geodon, as he seemed to respond well to it last hospital stay. [place] with grandparents and A[place] program New internal [...] Goldman MD 11/15/2019 12:28 PM * Manuel Peralta RN - 11/15/2019 10:28 AM EDT 0730 [...] vs wdl after this statement * Re Arriaga CTRS - 11/15/2019 9:40 AM EDT 0940 - 1010 Goal/Warm UP: Pt went to get [...] supported redirecting patient, patient returned to the [facility]. 1625: Patient seated in the dining room, eating supper, patient up to the dietary window with requests for the Lead Process Engineer, patient has hypermobile movements. 1730: Patient seated [...] independent with ADLs, patient contracts for safety. 6: Patient lying in bed, sleeping, calm composed at end of shift. * Emerita Santamaria, KATY - 11/14/2019 3:46 PM EDT Hospital Medicine Inpatient Consult Follow-up 11/14/2019 Emerita Santamaria CNP Patient: Aba Carlton Date of : 2000 (19 y.o.) PCP: Physician No Referring Provider: Carey Goldman MD Consult: Lanette Cordon MD: Hospitalist assistance with medical management Of note, this patient was admitted to [facility] following the declaration of aNational State of Emergency due to the COVID-19 pandemic, as issued by the accounting intern on 06/27/2019. ASSESSMENT/PLAN: Principal Problem: Schizoaffective disorder, [...] Name: Aba Carlton Admit Date: MR #: [id number] : 2000 Perpetual Assessment Aba Carlton is [...] hyperthyroidism. He returns in acute psychosis with brook for court ordered hospitalization. P: Add oral [...] this time. Discussed doing guardianship application with Beatrice Charles from [facility]. Review of Systems: Constitutional, cardiac, pulmonary, [...] Carey Goldman MD 11/14/2019 2:32 PM * Jolly Nick Nicky, RD - 11/14/2019 10:37 AM EDT Nutrition [...] Azevedo MS, JEFFRY, LD Dietitian Office * Emerita Vidal MSW LISW-S - 11/14/2019 10:18 AM EDT Attempted to meet with patient to review treatment plan update and to see if patient would sign an RANDEE for [facility] in [place] where patient had been hospitalized for mental health reasonsseveral times in the past. Patient refused to talk with this worker at this time. Dr. Goldman updated. environmental services lead continues to follow. * Manuel Peralta RN [...] others. Contracted for safety. Denied having hallucinations. 5 Ate approximately 50% of supper in dining area. 1919 Frequently requesting snacks from kitchen. Only takes a few bites of food, then throws food out. 2154 Took shower. Observed talking & grinning to self in his room. 2234 Agitated & tense. Demanding to be given [...] 6:25 PM EDT 1815 Spoke with Dai bay in dietary and explained situation - she will coordinate several meals seth placed up in this kitchen for pt * Emerita Vidal MSW LISW-S - 11/13/2019 2:30 PM EDT Patient has been court ordered by Probate Court Complaint Analyst Vicente Artis to [facility] for psychiatric treatment. Chart reviewed prior to [...] contact. Patient follows in the community with [facility]. Referral called to [facility]. Initial treatment plan was not reviewed with patient at this time as patient refused to talk with this worker. Prior hospitalizations: here most recently. Case discussed with Dr. Goldman and CRISTAL Barahona. No other immediate discharge needs identified at this time. environmental services lead to follow. * Liz Decker LPN - [...] is nothing around him. * Patti Sauceda, RN SURGICAL - 11/13/2019 8:35 AM EDT 08:35 Contacted pt for Behavioral Health Therapy Initial Assessment. Pt sleeping soundly at this time. Will check back with pt later this morning. 11:30 Patient not in his room at this time but his room and bathroom floor both had standing water.Area cleaned by this contract writer and Environmental Services Staff. Pt found in the lounge and stated hisshower leaked and that he needed a shower chair when showering. Encouraged pt to discuss this further with nursing staff. After room was cleaned this contract writer again approached pt to complete Behavioral Health [...] answer any questions. Pt then asked this contract writer, What is 738 x 78? Pt laughed [...] 8:59 PM EDT 2100 Pt arrived to [facility] room 330 via wheelchair accompanied by ED staff and collections officer at 2023. Pt arrived with probate [...] patch 21 mg and order entered in [employer] 2135 Pt continues to frequently want snacks after many snacks had already been given. Limits set. Pt out in lounge area watching TV. 2149 Pt has laid down in bed. Respirations are even and non labored. 2217 Pt resting quietly, resps even and non labored. * Beatrice Colindres LISW - 11/12/2019 4:52 PM EDT This worker received call from [employer] who reports Patient did receive his Invega injection (156 mg) at [facility] on 11/05/2019. CRISTAL Watkins updated. documented in this encounter* Keri Maurice MD - 11/21/2019 11:42 AM EDT [facility] Medicine Inpatient Follow-up 11/21/2019 Keri Maurice MD [facility] Patient: Aba Carlton Date of : 2000 [...] 12/18/2019 11:00 AM EDT Patient discharged to [facility] Crisis Stepdown unit and is scheduled to follow up with [facility] and[facility]. BH Day of Discharge bundle was faxed through [facility] to agency. Contacted patient's grandmother to update her on discharge. No further older adult social work specialist needs identified at this time. Case closed. [...] ADL independently at this time. 1030 - Beatrice from [facility] is talking with patient 1055 - Patient is discharged from the unit accompanied by Katie Charles - [facility] staff. After visit summary, including discharge [...] see if he is accepted. environmental services lead continues to follow. * Ghulam Garcia RN [...] Name: Aba Carlton Admit Date: MR #: [id number] : 2000 Perpetual Assessment Aba Carlton is a 19 y.o. male was seen individually, as discussed with nursing staff, medical records were reviewed. Patient is pacing the floor, while engaging in conversation with family members on telephone. He is verbally directable on the unit. Patient had been repeatedly asking the question about his placement in the [facility] setting. He is in compliance with current [...] went to bed. * Emerita Vidal MSW LISW-S - 12/17/2019 3:16 PM EDT Referral called to Taco at [facility] regarding patient going to the Crisis stepdown unit while waiting for placement for one of the group homes. [facility] came up this afternoon to evaluate patient for unit and feels he would be appropriate if there is a bed and is contacting Beatrice Charles regarding further availability. At [facility]'s request did fax referral bundle (med list, H&P, facesheet) to agency. Contacted patient's grandmother and updated her of above. environmental services lead continues to follow. * Lilly Ta CTRS [...] the lounge, calm and cooperative. * Kathrin Jacinto RN - 12/16/2019 11:33 PM EDT 2330 In [...] and remains in bed. * Emerita Vidal ALEMITE OPERATORFabrizio SAMANIEGO - 12/16/2019 4:16 PM EDT No word yet from [facility] regarding patient's status on placement. Per reports patient continues to wander around the unit, at times laughing inappropriately, continuing to respond to internal stimuli however remains cooperative with staff and unit rules. environmental services lead continues to follow. * Malena Sahu RN [...] resting in bed awake. Calm and controlled. 2230: Pt resting in bed with eyes closed. [...] Name: Aba Carlton Admit Date: MR #: [id number] : 2000 Perpetual Assessment Aba Carlton is [...] Chung MD 12/16/2019 1:06 PM * Re Arriaga, RN SURGICAL - 12/16/2019 1:00 PM EDT Recreation Therapy: [...] he is able to go - either [facility] or [facility]. Awaiting forinformation from Quynh with [employer]. Otherwise patient reports he's doing better. He does appear to be calmer thought only sporadically attending therapy groups. environmental services lead continues to follow. * Malena Sahu, CRISTAL - 12/15/2019 3:37 PM EDT 1600: Temp [...] resting in bed awake. Calm and controlled. 1999: Temp 98.1 temporal. 2114: Pt resting in bed with eyes closed. Respirations even and non labored. 2229: Pt remains resting in bed with eyes closed. Respirations even and non labored. * Re Arriaga, RN SURGICAL - 12/15/2019 1:30 PM EDT 1330 Recreation Therapy: Pt came to group though refused to participate in the activity stating he only wanted to watch. Unable to encouraged pt to play the game of Arnoldo which he was familiar with. Pt left after 15 minutes. * Carlos Chung MD - 12/15/2019 12:53 PM EDT Psychiatry Progress Note Patient Name: Aba Carlton Admit Date: MR #: [id number] : 2000 Perpetual Assessment Aba Carlton is [...] Name: Aba Carlton Admit Date: MR #: [id number] : 2000 Perpetual Assessment Aba Carlton is [...] Chung MD 12/14/2019 12:43 PM * Leta Cornejo, TUAN - 12/14/2019 9:35 AM EDT 9409-1375 Pt out in TV lounge, watching TV, when approached for group, willing to attend. PT able to respond to requests and questions in a more timely manner then last contact contract writer had with pt. PTquiet in group setting [...] at this time. Client left heading to [facility]. 2052- Client stated he was going to bed. Retrieved client boots and put them in the nurse's station. * Carlos Chung MD - 12/13/2019 1:37 PM EDT Psychiatry Progress Note Patient Name: Aba Carlton Admit Date: MR #: [id number] : 2000 Perpetual Assessment Aba Carlton is [...] Chung MD 12/13/2019 1:37 PM * Patti Sauceda CTRS - 12/13/2019 1:00 PM EDT 13:00 - 13:10 Recreation Therapy - Pt in the lounge upon approach and he was receptive to joining group. Pt was presented the activity 7up but excused himself from group prior to engaging in activity. Pt appeared preoccupied and distracted. * Elisha Veloz RN - 12/13/2019 7:56 AM EDT 0740 [...] have slept for approximately 7 hours * Anel Weiss LPN - 12/12/2019 4:47 PM EDT 1548- Client walking in [facility]. Approached client. Introduced self to client. Identified [...] this time. Client left walking around in [facility]. 2004- Client asked to take medication, then [...] Name: Aba Carlton Admit Date: MR #: [id number] : 2000 Perpetual Assessment Aba Carlton is a 19 y.o. male was seen individually, case discussed with nursing staff, medical records were reviewed. Patient stated that he is looking forward for replacement team [facility] or any other residential setting which can [...] Chung MD 12/12/2019 4:47 PM * Leta Cornejo CTRS - 12/12/2019 1:00 PM EDT 0829-7621 Recreation Therapy: Pt finished putting clothes away [...] but pt not able to understand. * Beatrice Miranda MSW LISW-S - 12/12/2019 11:37 AM EDT MARTELL spoke with window caser Quynh Claudio at [facility] regarding update on patient's discharge placement. Quynh states that she finally spoke with the director Mai at [facility] in [place], [place] today at 11:30am. She stated that all of patient's referral information has been forwarded to Mai for review. Quynh states that she should hear back from Mai later today if patient has been accepted at [facility]. If patient is accepted, she will notify MARTELL. If patient is not accepted, she will have no choice but to move on to [facility]. In which case, we will more than likely have to wait until Thursday 12/14 for a decision on patient's acceptance there. MARTELL thanked Quynh for this update and will await a response from [facility] later today (before 4pm). environmental services lead will continue to follow and assist with discharge planning. NOTE: 4:25pm - No additional updates from [facility] are available at this time. SCRAP SAWYER will speak with her on Sunday12/15/19 for final decision on patient's placement ([facility] vs [facility]). environmental services lead will continue to follow and assist with discharge planning. * Manuel Peralta, RN - 12/12/2019 9:16 AM EDT 0730 [...] when making frequent requests * Lilly Ta RN SURGICAL - 12/12/2019 9:00 AM EDT Goal Group: [...] at this time. 2029 walking in hallway 2130 resting quietly in bed with eyes closed respirations unlabored 2300 continues to rest quietly in bed. Pt has kept to self this shift in room, listening to music with staff, or ambulating in hallway. Has been calm and cooperative. Took HS meds without difficulty. * Nakia Alvarez RN - 12/11/2019 4:42 PM EDT [...] , I'm worried about getting into this [facility] and my grandparents having control over my [...] and denies needs at this time. * Beatrice Miranda MSW LISW-S - 12/11/2019 3:04 PM EDT MARTELL spoke with window caser Quynh Claudio at [facility] regarding update on patient's discharge placement. Quynh states that she is working on a placement at [facility] in [place], [place] per the guardian (Benitez Hitchcock's) request. However, there is something wrong with their phone system and she keeps getting disconnected. She has been given an alternate phone number to speak with folks at [facility]. If she cannot get a confirmed response from [facility] by tomorrow morning, she will move on to the second option approved by the guardian, [facility]. Either way, Quynh states that she will [...] and she has filed an application for [facility] to become patient's payee. MARTELL thanked Quynh for this update and agreed to pass it along to patient's treatment team. environmental services lead will continue to follow and assist with discharge planning. * Leta Cornejo, RN SURGICAL - 12/11/2019 1:00 PM EDT PT agreed to attend group but once activity was explained to pt, pt cited that he felt he could notconcentrate enough to engage and excused self from group. * Carlos Chung MD - 12/11/2019 12:27 PM EDT Psychiatry Progress Note Patient Name: Aba Carlton Admit Date: MR #: [id number] : 2000 Perpetual Assessment Aba Carlton is a 19 y.o. male who was seen individually, case discussed with nursing staff, medical records were reviewed. Patient stated that he has been trying to reach guardian and also window caser from the [employer]. Patient is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 Name: Aba Carlton Admit Date: MR #: [id number] : 2000 Perpetual Assessment Aba Carlton is [...] my care plan include thyrotoxicosis. Following for brook and psychosis, agitation, non-compliance Interval History: see [...] Goldman MD 11/24/2019 3:48 PM * Emerita Vidal MSW LISW-S - 11/24/2019 1:36 PM EDT Patient is [...] medications, and was trying to get to [place] when eventually found by [place] Police (without grandparents' car) and brought to ED. Due to his court involvement with Assisted Outpatient Treatment (AOT) he has been probated by Complaint Analyst Chandra to this hospital for court ordered [...] this worker. Updated her briefly. environmental services lead continues to follow. * Re Arriaga CTRS - 11/24/2019 1:10 PM EDT Recreation Therapy: Pt was informed that group was to begin, however, pt easily distracted and unable to focus or remain in group. * Leta Cornejo, TUAN - 11/24/2019 9:15 AM EDT 2943-0904 Goal Group: Pt out in TV lounge [...] day of seeing Dr. Weiner and my social sciences lecturer because I need to go. * Elisha Veloz RN - 11/24/2019 7:51 AM EDT 0745 Patient laying in bed at this time. Woke for breakfast. 0900 Patient sitting on side on side of bed. Patient sat up quickly cypriot style on the bed and stated what [...] took medication without difficulty. Mouth check performed. 914 Patient taking a shower at this time. [...] Pt is controlled. 2000: Temp 97.5 temporal. 2029: Pt resting in bed awake. Calm and controlled. 2052: Pt received scheduled medication and took without difficulty. Blood pressure 160/76, heart rate 110. 2130: Pt resting in bed with eyes closed. Respirations even and non labored. * Patti Sauceda, RN SURGICAL - 11/23/2019 2:00 PM EDT 14:00 - 14:30 Recreation Therapy - Pt recalled that this contract writer had told him during assessment thatgroup was [...] Patient attended Spirituality group. Topic was Gratefulness Vice Principal role introduced and how to contact if follow up is requested. Chaplain Celia Morfin MDiv [facility] Department [phone] office [phone] pager [phone] on-call pager (after 5pm and weekends) 11/23/19 1000 Clinical Encounter Type Visit Type Non Crisis Non Crisis Visit Group Visited With Patient Visited By Other (comment) (Vice Principal) Visit Length (minutes) 60 * Lora Oropeza [...] stopped when I opened the door. * Demetrius Ramirez RN - 11/22/2019 9:23 PM EDT [...] if a cab can take him to [place] upon discharge. Vital signs obtained, height and [...] had a plan to run away to [place]. From: 4NT Admitting physician and diagnosis: Dr. [...] Contraband search: None found Tour of unit: demetrius Orders: Dr. Chung Paperwork signed: no documented [...] blood tests to obtain medical clearance to [place] [facility] were performed and revealed an elevated CPK. He was hospitalized from 12/25 through 01/05/2020. His CPK elevation was thought to be secondary to dehydration. His most recent TFTs on01/04 revealed TSH<0.01, FT4--0.9. During that admission his methimazole dose was reduced to 20 mg daily. He also continues on metoprolol He was admitted to [facility] facility, but was only there for 2 days and was dischargedto the care of his grandparents. He had a court hearing today, and currently is living with his grandparents. He has a guardian, Benitez Hitchcock. Apparently next week he will be admitted to a facility in [place], [place]. He still will be receiving services from [facility] according to his grandparents. It is unclear if he will be able to continue to follow-up with endocrinology here at [facility]. The following portions of the patient's [...] parents, awaiting admission to a facility in [facility]. He has been taking methimazole 20 [...] blood tests to obtain medical clearance to [facility] were performed and revealed an [...] 10 mg PM. He was admitted to [facility], but was only there for 2 days and was dischargedto the care of his grandparents. He currently is living with his grandparents. He has a guardian, Benitez Hitchcock. He still will be receiving services from [facility] according to his grandparents. The following [...] 1750 Discharged ambulatory, wearing face mask, from 3C, to grandfather. Discharge instructions reviewed. Verbalized understanding of same. Received personal belongings. * Emerita Vidal MSW LISW-S - 10/30/2019 4:13 PM EDT Probate hearing for patient was this morning at 9 AM. Patient found to need to be at [facility] until Dr. Goldman deems he is ready for discharge and patient court ordered to followin Assistive Outpatient Treatment (AOT) through court and [facility]. Per Dr. Goldman patient was ready to discharge as grandfather confirmed in hearing patient was able to return to his home and patient is agreeable to this is to stay compliant with his medication. Patient to follow up with [facility] and copy of [facility] Day of Discharge Bundle faxed to agency through [facility]. No further older adult social work specialist needs identified at this time. Case closed. * Re Arriaga CTRS - 10/30/2019 1:15 PM EDT 1315 - 1400 Recreation Therapy: Pt agreed to attend group this afternoon and learned the board gameof Sequence. His ability to play was fair, however, he was preoccupied and needing prompts as to when it was his turn. His behavior controlled and receptive to feedback. * Chantelle Spence, RN - 10/30/2019 9:22 AM EDT 0900 [...] lab to inquire on the satus of quality assurance qa lab technician to do T4 draw. Lab [...] Aba Carlton Admit Date: 10/19/2019 MR #: [id number] : 2000 Physicians: Physician No (Family); Mariam [...] file Gets together: Not on file Attends confucianist service: Not on file Active member of [...] 5:53 PM EDT 1550 [facility] 1720 Pt is clean and [...] conversation. Pt denies any other current needs/complaints. 1736 Pt signed for Invega Sustenna. Invega Sustenna administered and pt tolerated well. Pt then back out to [facility] to watch TV. Pt denies any other current needs/complaints. 2206 Pt has remained up and about on unit this shift. Pt has remained calm and controlled. Pt med compliant this shift. 2238 Pt frequently wanting food from the kitchen, limits set. Pt in lounge watching TV. * Emerita Vidal MSW LISW-S - 10/29/2019 2:33 PM EDT Spoke with Beatrice Charles from [employer] who was present to do her evaluation for patient's probate court hearing tomorrow and provided Beatrice with patient's H&P and medication list. Contacted patient's grandmother to inform her of the hearing and the hope that patient could be placed in the AOT program which could help them with his medication compliance. Asked if she or grandfatherwould like to attend the hearing and she stated grandfather would be there. Told her it was at the [facility] in the probate court tomorrow morning at 9 AM. Contact Gene at the Probate court and left her a message that grandfather, Roland Hughes, would be attending. Also faxed to Gene the H&P and grandfather's information for the hearing tomorrow. environmental services lead continuesto follow. * Lilly Ta CTRS - [...] Name: Aba Carlton Admit Date: MR #: [id number] : 2000 Perpetual Assessment Aba Carlton is [...] environment Supportive therapy/structured supportive care environmental services lead assessment/linkages/care coordination Aftercare planning once stable Comorbid [...] Goldman MD 10/29/2019 11:32 AM * Leta Cornejo, RN SURGICAL - 10/29/2019 9:10 AM EDT 2319-6057 Goal Group: Pt brought self to group [...] Aba Carlton Admit Date: 10/19/2019 MR #: [id number] : 2000 Physicians: Physician Brigitte (Family); Mariam Santamaria CNP (Referring) Assessment and [...] file Gets together: Not on file Attends confucianist service: Not on file Active member of [...] 1000 Patient showering at this time 1100 Beatrice Charles here to see patient. 1130 Patient eating lunch in [facility] with peers 1330 Patient attend group * Elvira Suazo RN - 10/29/2019 3:24 AM EDT 00:00 Patient resting quietly in bed with eyes closed. Respirations even and easy. No voiced complaints. 05:00 Patient appears to have slept 6 hours. No voiced complaints. * Anel Weiss LPN - 10/28/2019 4:36 PM EDT 1610- Client in [facility]. Approached client. Introduced self to client. Client [...] any further needs. Client left sitting in lounge. 1646- Client sitting in lounge, eating. Approached client. Introduced self to client. Identified client by name, , and wristband. Administered medication as per physician order. Client tolerated mediation with a cup of water. No medication noted upon inspection of oral cavity. Client denied any further needs. Client left sitting in lounge, eating. 2003- Client at nurse's station asking for snacks. Identified client by name, , and wristband. Reassessed client vital signs as per physician order. Client blood pressure 117/71, consulted with discharge specialist and holding medication until blood pressure is [...] Name: Aba Carlton Admit Date: MR #: [id number] : 2000 Perpetual Assessment Aba Carlton is [...] environment Supportive therapy/structured supportive care environmental services lead assessment/linkages/care coordination Aftercare planning once stable Comorbid [...] Goldman MD 10/28/2019 2:59 PM * Emerita Vidal MSW LISW-S - 10/28/2019 2:46 PM EDT Patient was provided copies of his probate patient work and rights of an involuntarily detained person. Patient immediately requested the phone and was speaking with his calculator operator. Was told by Elisha Veloz RN, that [...] on his thyroid concerns and she assured [facility] worker that they would make sure to get patient to medical appointments and take all his medications. She confirmed that patient had lived temporarily at the [facility] for about 3 weeks after a fight with grandfather. Then he came home. Per grandmother he has done this at other times in the past. Asked if they had considered guardianship for patient to which grandmother replied they had not but she will talk with grandfather about that. Updated Dr. Goldman on above. environmental services lead continues to follow. * Lilly Ta, RN SURGICAL - 10/28/2019 1:00 PM EDT Recreational Therapy: [...] Aba Carlton Admit Date: 10/19/2019 MR #: [id number] : 2000 Physicians: Physician No (Family); Mariam [...] file Gets together: Not on file Attends confucianist service: Not on file Active member of [...] by Fabienne MURO 209:29 AM * Re Arriaga, RN SURGICAL - 10/28/2019 9:00 AM EDT Goal/Warm UP: [...] came back to the room. * Elisha Veloz, RN - 10/28/2019 8:00 AM EDT 0800 [...] encouraged to attend all groups. Verbalized understanding. 0915 Encouraged patient to go to group and [...] Inderal at this time. 1600 Temp. 97.5 1641-[address] in hallway as patient stood casually dressed. Behavior is controlled, cooperative, guarded, and watchful. Communicates needs to staff and responds to questions. Mood is depressed, dull, and flat. Thought process is alert and oriented. Patient reports to this contract writer,my appetite is great, and I slept good. Denies any suicidal and homicidal ideations and voices. Rates anxiety 3/10 and deniesdepression at this time. Has been out on unit this shift. Eats meals in dining room. Takes meds without incident. Completed ADLS. Eye contact good with this contract writer and contracts for safety. Much support given to patient as he speaks of having the paper taken away. Jericho pryor advised patient nursing had nothing to do with Probate Court Hearing papers. I just want to be discharged and go to [place]. Patient going to get tray at this [...] Took HSMeds without incident at this time. 2109 Eating snacks in lounge at this time. 2129 Given strawberry ice cream at this time. 2209 At nursing station pouring Gingerale at this time. Patient has asked for snacks all throughoutthe shift and continues to asked food. 0 In room in bed resting on right side with eyes closed at this time. * Emerita Vidal MSW LISW-S - 10/27/2019 3:33 PM EDT Patient reviewed [...] He want to go to a homeless senior care in [place] where he does not have established mental [...] be (10/28) at 9 AM. * Re Arriaga, RN SURGICAL - 10/27/2019 1:00 PM EDT 1300 - 1330 Recreation Therapy: Pt participated in playing the card game of [employer]. He was able to follow along with game rules though would seek clarification of game rules often. Behavior was controlled though detached and preoccupied at times. Benefits were discussed. * Jay Lovell PA-C - 10/27/2019 12:39 PM EDT CONSULT NOTE Patient Name: Aba Carlton Admit Date: 10/19/2019 MR #: [id number] : 2000 Physicians: Physician No (Family); Mariam [...] file Gets together: Not on file Attends confucianist service: Not on file Active member of [...] you. Electronically signed by: Jay Lovell PA-C, [facility] 10/27/19 12:42 PM * Carey Goldman MD - 10/27/2019 11:44 AM EDT Psychiatry Progress Note Patient Name: Aba Carlton Admit Date: MR #: [id number] : 2000 Perpetual Assessment Aba Carlton is a 19 y.o. male presenting with bizarre behaviors and paranoid delusions and agitation. Diagnosis & Plan/Recommendations PRINCIPAL DIAGNOSIS: Schizoaffective disorder, bipolar type (HCC) Other * Schizoaffective disorder, bipolar type (HCC) Assessment & Plan Assessment: Aba is requesting to be discharged, wanting to go to [place] to live with a friend. He is [...] environment Supportive therapy/structured supportive care environmental services lead assessment/linkages/care coordination Aftercare planning once stable Comorbid [...] Goldman MD 10/27/2019 11:44 AM * Kenna Kumar [facility] - 10/27/2019 11:27 AM EDT Psychiatry Progress Note Patient Name: Aba Carlton Admit Date: MR #: [id number] : 2000 Perpetual Assessment Aba Carlton is a 19 y.o. male presenting with bizarre behavior and suicidal thoughts with a plan to cut his wrists. Diagnosis & Plan/Recommendations PRINCIPAL DIAGNOSIS: Schizoaffective disorder, bipolar type (HCC) Other * Schizoaffective disorder, bipolar type (HCC) Assessment & Plan Assessment: Aba is requesting to be discharged, wanting to go to [place] to live with a friend. He is [...] environment Supportive therapy/structured supportive care environmental services lead assessment/linkages/care coordination Contact grandparents for corroborating information; [...] Kumar CNP 10/27/2019 11:30 AM * Nick Azevedo, RD - 10/27/2019 10:56 AM EDT Nutrition [...] RDN, LD Dietitian Office * Leta Cornejo, TAUN - 10/27/2019 9:15 AM EDT 2870-3851 Goal Group: PT out in lounge with peers when approached for group, willing to attend. PT tense, guarded and irritable. Group was provided with RO, to which pt was A&O x3. Pt socially awkward in the group setting, seating self in the middle of group [place] and refusing to move, despitethe inappropriateness being [...] for the day of be DC to [place] to live in homeless senior care, because I am a grown man and [...] would call the doctor and attempted to bean picker machine operator the phone. Patient then stated you know [...] Patient given the phone number to homeless senior care but could not get through. Spoke to his social sciences lecturer Perez Vidal and he was informed we [...] Name: Aba Carlton Admit Date: MR #: [id number] : 2000 Perpetual Assessment Aba Carlton is a 19 y.o. male was seen individually, case discussed with nursing staff, medical records were reviewed. Patient was observed staring, mumbling to self, remained preoccupied with confucianist delusional thoughts. He had maintained little better [...] environment Supportive therapy/structured supportive care environmental services lead assessment/linkages/care coordination Contact grandparents for corroborating information; [...] Chung MD 10/26/2019 5:38 PM * Kathrin Jacinto RN - 10/26/2019 3:54 PM EDT 1520 Sitting in lounge watching movie with other peers at this time. [address] in patients' room as he stood casually dressed. Behavior is controlled,cooperative, guarded, and watchful. Communicates needs to staff and responds to questions. Mood is depressed, dull, and flat. Thought process is alert and oriented. Patient reports to this contract writer, my appetite is great, and I slept great. Denies any suicidal and homicidal ideations and voices. Denies anxiety and depression at this time. Has been out on unit this shift. Eats meals in dining room.Takes meds without incident. Completed ADLS. Eye contact good with this contract writer and contracts for safety. GOAL: Behave so I can be discharged. 1600 Temp. 97.5 1601 Continues sitting in lounge watching movie at this time. 1635 Supper setting on table at this time. 1655 Patient revoked RANDEE for Sahra and Roland Kropps and was witnessed by Ashley NELSON at this time. 1705 Patient at nursing station stating he wanted a taxi to take him to [address] [place] [address] [facility] and told this contract writer to tell Ancillary Services Manager. This contract writer advised would leave message for his Assistant Pastry Chef regarding his request. Patient left the nursing station area at this time. 1730 Patient requesting to see Assistant Pastry Chef Emerita Vidal as soon as her schedule permits on Sunday. Call to her office phone at this time. 1812 PRN Vistaril 50mg for increased anxiety and Ibuprofen 600mg for #6 spine pain per patient request at this time. 1840 Took evening med without incident at this time. 184 Asking for chocolate pudding and ice cream [...] Patient walked away. 2019 Patient advising this contract writer there is a bug in his throat and wanted this contract writer to listen with that round thing. This contract writer did listen and heard pulse. Much support given to patient. Patientadvised noone had given handouts on his medications. This contract writer provided handouts on his thyroid medication, Cogentin, and Tapazole. Patient declined meds at this time. 2100 This contract writer reviewed teaching sheets with patient at this time and asked if he had questions. I don't want to take that Geodon. They gave it to me the other day when the guards came up and whenI get out of here I am going to francois you people. This contract writer advised patients needed medications and he was [...] lounge area watching TV at this time. 0 Sitting in lounge at this time with other peers 220 Sitting in lounge at this time. 2230 In shower at this time. 2235 At nursing station at this time asking for a shirt. Asked for gown which was given at this time. 2240 Asking for chocolate pudding at this time which was given. 2250 Sitting in lounge at this time. 2315 In room in bed resting supine with eyes closed at this time. * Patti Sauceda, RN SURGICAL - 10/26/2019 1:00 PM EDT 13:00 - [...] 11:30 AM EDT Patient attended Spirituality group. Vice Principal role introduced and how to contact if follow up is requested. Chaplain Celia Morfin MDiv [facility] Department [phone] office [phone] pager [phone] on-call pager (after 5pm and weekends) 10/26/19 1000 Clinical Encounter Type Visit Type Non Crisis Non Crisis Visit Group Visited With Patient Visited By Other (comment) (Vice Principal) Visit Length (minutes) 60 * Lora Oropeza [...] EDT 2330 Has been spending time in [facility]. Came to the desk to say he had fleas in his bed. This nurse spoke with him about the 3-11 nurse changing his bed linens, and attempted to reassure him there were no fleas in his bed. Steffanie Mccrary RN, gave the patient Vistaril at 2333. 0030 Resting on bed with eyes closed, regular, unlabored respirations. 0315 Continues to rest with easy respirations. 0600 Appears to have rested 5.5 hours uninterrupted. Continues to rest with easy respirations. * Nakia Alvarez RN - 10/25/2019 4:45 PM EDT 1600 Patient sitting in the lounge socializing with others at this time. Special precaution in place, will continue to monitor. 1640 This nurse [facility] and introduced self as nurse for this [...] room. Patient reported, there was a light-skinned [place] dude that came in and dumped fleas [...] reported that he needs 7 pieces of icelandic toast, 3 cheese burgers, and several drinks for each meal. Menu faxed to nutrition. 2245 Patient lying awake in bed. Patient made [...] Name: Aba Carlton Admit Date: MR #: [id number] : 2000 Perpetual Assessment Aba Carlton is [...] Carlos Chung MD 10/25/2019 3:26 PM * Patti Sauceda, RN SURGICAL - 10/25/2019 12:30 PM EDT 12:30 - 13:00 Recreation Therapy - Pt in his room upon approach and he agreed to attend group. Pt brought himself to group late at 12:40. Group was already engaged in leisure activity Sequence [employer]. Pt voiced he was okay with just watching. He was invited to join in second round of activity but he still declined. Stated he would rather play [employer] or another game this contract writer was not familiar with. Pt stated the game was about creation and evolution. Pt religiously preoccupied and at times making bizarre statements. Advised peer she would understand the Bible better if she were to read the Bible and [employer] novels at the same time because they [...] Name: Aba Carlton Admit Date: MR #: [id number] : 2000 Perpetual Assessment Aba Carlton is [...] 10/24/2019 8:26 PM * Emerita Vidal MSW SCRAP SAWYER-S - 10/24/2019 3:34 PM EDT Met briefly with patient in [facility] [place] as patient was pacing and walking the hallways. He did not speak much to this worker at this time. He continues to be fixated on when he will discharge and when this worker told him it was up to the doctor patient became agitated and walked away. Patient has follow up with Dr. Dhillon at [facility] which is on AVS. environmental services lead continues to follow. * Malena Sahu RN [...] at this time. Will continue to monitor. 1742: Pt requests his scheduled nicotine patch at this time. Pt educated to remove and given staff the patch before bedtime. 1810: [facility]. Calm and controlled at this time. Pt received scheduled medication and took without difficulty. 0: Pt walking in hallway with peer. Socially appropriate. 2000: Temp 98.2 temporal. 2035: Pt received scheduled medication and took without difficulty. 0: Pt up to nurses station hyperverbal. Pt requesting printout of chakras and information aboutatoms to keep his mind fresh. Provided pt with requested information at this time. 2250: [facility]. Calm and controlled. * Patti Sauceda, RN SURGICAL - 10/24/2019 1:25 PM EDT 13:25 Recreation [...] went to the nurses station. * Fortino Messina, KATY - 10/24/2019 9:33 AM EDT CONSULT NOTE Patient Name: Aba Carlton Admit Date: 10/19/2019 MR #: [id number] : 2000 Physicians: Physician No (Family); Mariam [...] file Gets together: Not on file Attends confucianist service: Not on file Active member of [...] with you. Fortino Messina CNP * Nick Azevedo, RD - 10/24/2019 9:10 AM EDT Nutrition [...] for Estimating Needs: 1.2gm/kg [place] Azevedo MS, KELLN, LD Dietitian Office * Manuel Peralta RN [...] Santamaria CNP - 10/23/2019 5:48 PM EDT Hospital Medicine Inpatient Consult Follow-up 10/23/2019 Emerita Santamaria CNP Patient: Aba Carlton Date of : 2000 (19 y.o.) PCP: Physician No Referring Provider: Carey Goldman MD Consult: Lanette Cordon MD: Hospitalist assistance with medical management Of note, this patient was admitted to [facility] following the declaration of aNational State of Emergency due to the COVID-19 pandemic, as issued by the accounting intern on 06/27/2019. ASSESSMENT/PLAN: Principal Problem: Schizoaffective disorder, [...] to his grandfather's house, then going to [employer]. Recommend he stays in the hospital long [...] however patient refused to sign. Asked for [facility] and [facility] numbers. Provided patient with [facility] shelters[facility] asked I thought you were going to go back home with grandparents to which patient replied We're working it out. environmental services lead continues to follow. * Kenna Kumar CNP - 10/23/2019 3:55 PM EDT Psychiatry Progress Note Patient Name: Aba Carlton Admit Date: MR #: [id number] : 2000 Perpetual Assessment Aba Carlton is a 19 y.o. male presenting with bizarre behavior and suicidal thoughts with a plan to cut his wrists. He was brought to the ED by [facility]'s Office. Diagnosis & Plan/Recommendations PRINCIPAL DIAGNOSIS: Schizoaffective [...]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 (NICODERM CQ) 21 mg/[address] 1 (one) patch on the skin daily Start: 08/21/23., Starting Sun08/21/2023, Until Sun09/20/2023, Normal paliperidone (INVEGA) 24 hr tablet 6 mg 6 mg, Oral, Daily, First dose (after last modification) on Sun08/21/23 at 0900, DO NOT CRUSH OR CHEW. 1023 (Given - Provider: Kenna Owusu RN) 0808 (Given - Provider: Kenan John RN) 0853 (Given - Provider: Kalin Muniz RN) paliperidone (INVEGA) 6 MG 24 hr tablet [...] PLACED TUBE OR TUBE less than 14 Hungarian. To administer dissolved tablet(s) mix with 4 ounces of water over 2-3 minutes, stir for 30 seconds prior to administration; rinse dosing cup and administer residual medication to ensure full dose given 0807 (Given - Provider: Kenna John RN) potassium iodide (SSKI) 1 gram/mL solution 5 [...] at 1800 0007 (Given - Provider: Tiff Nguyễn RN)0604 (Given - Provider: Tiff Nguyễn RN)1400 (Given - Provider: Kenna Owusu, CRISTAL)1827 [...] John RN) 0029 (Given - Provider: Tere Arreola, CRISTAL)0525 (Given - Provider: Tere Arreola, CRISTAL)1212 (Given - Provider: Kalin Muniz, CRISTAL) sodium chloride (PF) (NS) flush 5 mL(Linked Group 1) 5 mL, Intravenous, Every 8 hours scheduled, First dose on Sun08/20/23 at 1400, Saline lock 0600 (Given - Provider: Tiff Nguyễn RN)1401 (Given - Provider: Kenna Owusu, CRISTAL)2055 (Given - Provider: Radha Arvizu RN)2200 (Canceled Entry - Provider: Radha Arvizu RN) 0604 (Given - Provider: Radha Arvizu RN)1400 (Canceled Entry - Provider: Kenna John RN)2200 (Not Given - Provider: Tere Arreola RN - Reason: Other) 0600 (Canceled Entry - Provider: Tere Arreola RN)1216 (Given - Provider: Kalin Muniz RN) PRN Medication Order 08/22/2023 08/23/2023 08/24/2023 diphenhydrAMINE (BENADRYL) injection 50 mg 50 mg, Intravenous, Every 6 hours PRN, other, give with IV haldol PRN, Starting on Sun08/20/23 at 1354, For IV administration, give at a rate less than or equal to 25 mg/min 210 (Given - Provider: Radha Arvizu RN) 0036 (Given - Provider: Tere Arreola RN)1213 (Given - Provider: Kalin Muniz RN) haloperidol lactate (HALDOL) injection 5 mg 5 mg, Intravenous, Every 6 hours PRN, agitation, administer with Benadryl 50 mg IV, Starting on Sun08/20/23 at 1354, May cause QT interval prolongation. 210 (Given - Provider: Radha Arvizu RN) 0036 (Given - Provider: Tere Arreola RN)1213 (Given - Provider: Kalin Muniz RN) ondansetron [...] Care Teams (unrecognized sec tion and content) Professor Of Religion Relationship Specialty Start Date End Date No, Physician [facility] PCP - General 08/18/23 Professor Of Religion Relationship Specialty Start Date End Date No, Physician [facility] PCP - General 08/18/23 Professor Of Religion Relationship Specialty Start Date End Date No, Physician [facility] PCP - General 08/18/23 Professor Of Religion Relationship Specialty Start Date End Date No, Physician [facility] PCP - General 08/18/23 Professor Of Religion Relationship Specialty Start Date End Date No, Physician [facility] PCP - General 08/18/23 Professor Of Religion Relationship Specialty Start Date End Date Amadeo Silver MD [place] [address] [facility] [place] [address] PCP - General Family Medicine 12/12/23 Professor Of Religion Relationship Specialty Start Date End Date Amadeo Silver MD [place] [address] [facility] [place] [address] PCP - General Family Medicine 12/12/23 Professor Of Religion Relationship Specialty Start Date End Date Amadeo Silver MD [place] [address] [place] [address] PCP - General Family Medicine 12/12/23 Professor Of Religion Relationship Specialty Start Date End Date Amadeo Silver MD [place] [address] [place] [address], [place] [address] PCP - General Family Medicine 12/12/23 Professor Of Religion Relationship Specialty Start Date End Date Amadeo Silver MD [place] [address] [place] [address] PCP - General Family Medicine 12/12/23 Professor Of Religion Relationship Specialty Start Date End Date Amadeo Silver MD [place] [address] [facility] [place] [address] PCP - General Family Medicine 12/12/23 Professor Of Religion Relationship Specialty Start Date End Date Amadeo Silver MD [place] [address] [facility] [place] [address] PCP - General Family Medicine 12/12/23 Professor Of Religion Relationship Specialty Start Date End Date Amadeo Silver MD [address] [address] PCP - General Family Medicine 12/12/23 Professor Of Religion Relationship Specialty Start Date End Date Amadeo Silver MD [place] [id number] PCP - General [facility] 12/12/23 Professor Of Religion Relationship Specialty Start Date End Date Amadeo Silver MD [address] [address] PCP - General Family Medicine 12/12/23 FOR [...] BE BASED ON THE PRIMARY CLINICAL RECORDS. [facility] [email or web address] [facility]. provides no warranty or guarantee of the accuracy or completeness of information in this document.
--- NOTE | 2025-03-26 19:35 | PCM.HP.STD ---
HPI - General General Date of Admission: 03/26/25 Date of Service: 03/26/25 Chief Complaint: Shortness of breath HPI Narrative ABA CARLTON, is a 24 M who presents to the emergency room at [facility] with complaints of shortness of breath x 2 days. Patient resides at a psychiatric care facility and EMS was called to transport the patient to the emergency room for evaluation. Patient was noted to be 86% on room air, patient states he has been coughing but only bringing up clear sputum. Workup in the emergency room included a CBC which was abnormal for white blood cell count of 3.3, chemistry panel was remarkable for sodium of 122, potassium of 2.8, chloride of 83. Patient's lactic acid was under 1. Chest CTA was obtained which showed scattered lung opacities bilaterally most consistent with multifocal pneumonia, no evidence of PE was noted. Patient was given IV doxycycline and Rocephin in the emergency room, he was also given oral potassium replacement. Patient will be admitted to [place] [address] for multifocal pneumonia, I will place him on IV Unasyn and give him aerosol treatments. He will remain on his medications from his facility. Patient is a full code. [facility] Medical History Impulsiveness Paranoid personality disorder Moderate protein malnutrition PVD (peripheral vascular disease) Suicidal ideations Hallucinations Patient's noncompliance with other medical treatment and regimen for other reason Palpitations Other psychoactive substance abuse, uncomplicated Tachycardia ADHD Antisocial personality disorder Schizo-affective schizophrenia Hyperthyroidism Hypertension Home Medications ?Medication ?Instructions ?Recorded ?Last Taken ?Type divalproex 250 mg tablet,delayed 250 mg PO QHS SCHIZOEFFECTIVE 03/20/24 Unknown History release (Depakote) divalproex 500 mg tablet,delayed 500 mg PO BID SCHIZOEFFECTIVE 03/20/24 Unknown History release (Depakote) DISORDER hydrochlorothiazide 25 mg tablet 25 mg PO QAM HTN 03/20/24 Unknown History hydroxyzine HCl 50 mg tablet 50 mg PO Q6H PRN anxiety 03/20/24 Unknown History lisinopril 10 mg tablet 10 mg PO QDAY HTN 03/20/24 Unknown History lorazepam 1 mg tablet (Ativan) 1 mg PO Q6H PRN PRN anxiety 03/20/24 Unknown History olanzapine 10 mg tablet 10 mg PO BID SCHIZOEFFECTIVE 03/20/24 Unknown History DISORDER trazodone 50 mg tablet 50 mg PO QHS SLEEP 03/20/24 Unknown History methimazole 10 mg tablet 10 mg PO DAILY THYROTOXIC CRISIS 04/23/24 Unknown History methimazole 15 mg tablet 15 mg PO .every other day 04/23/24 Unknown History propranolol 20 mg tablet 10 mg PO DAILY HTN 04/23/24 Unknown History Allergy/AdvReac Type Severity Reaction Status Date / Time No Known Allergies Allergy Verified 03/26/25 15:10 Surgical History No history of previous surgery Social History Smoking Status: Current every day smoker tobacco type: cigarettes substance use type: marijuana ROS Constitutional Constitutional: Denies anorexia, change in weight, fever(s), night sweats or weakness Eyes Eyes: Denies blurry vision, change in vision or eye pain Cardiovascular Cardiovascular: Reports dyspnea on exertion; Denies chest pain, claudication, edema or palpitations Respiratory/Chest Respiratory/Chest: Reports cough, shortness of breath at rest and shortness of breath with exertion; Denies hemoptysis Gastrointestinal Gastrointestinal: Denies abdominal pain, constipation, diarrhea, hematemesis, hematochezia, melena, nausea or vomiting Genitourinary Genitourinary: Denies dysuria, hematuria, urinary frequency, urinary hesitancy, urinary incontinence or urinary urgency Musculoskeletal Musculoskeletal: Denies back pain, joint pain, joint stiffness, joint swelling, myalgias or neck pain Neurologic Neurologic: Denies abnormal gait, abnormal speech, dizziness, focal weakness, headache(s), loss of vision, numbness, other visual disturbances, paresthesias, syncope or tingling Psychiatric Psychiatric: Denies anxiety, cognitive impairment, depression, irritability, mood swings or suicidal ideation Endocrine Endocrinology: Denies change in body appearance, cold intolerance, excessive sweating, heat intolerance, polydipsia or polyuria Hematologic/Lymphatic Hematologic/Lymphatic: Denies none, anemia, easy bleeding, easy bruising or lymphadenopathy Allergic/Immunologic Allergic/Immunologic: Denies rhinitis, urticaria, eczemia or asthma Vital Signs Vital Signs Vital Signs: 03/26/25 15:04 03/26/25 15:10 03/26/25 15:17 Temperature 98.6 F 98.6 F Temperature Source Oral Oral Pulse Rate 102 H 97 Respiratory Rate 20 H 24 H Respiratory Effort Short of Breath Blood Pressure 96/65 97/65 Blood Pressure Mean 75 75 Blood Pressure Source Blood Pressure Position Blood Pressure Location Pulse Ox 85 91 Oxygen Delivery Method Room Air Nasal Cannula Nasal Cannula Oxygen Flow Rate (L/min) 3 3 03/26/25 15:26 03/26/25 16:00 03/26/25 16:00 Temperature Temperature Source Pulse Rate 98 Respiratory Rate 19 H Respiratory Effort Blood Pressure Blood Pressure Mean Blood Pressure Source Blood Pressure Position Blood Pressure Location Pulse Ox 90 93 Oxygen Delivery Method Room Air Nasal Cannula Oxygen Flow Rate (L/min) 3 3 03/26/25 16:04 03/26/25 16:10 03/26/25 17:00 Temperature 98.7 F Temperature Source Oral Pulse Rate 102 H 100 102 H Respiratory Rate 20 H 18 20 H Respiratory Effort Blood Pressure 106/74 104/69 104/69 Blood Pressure Mean 84 80 80 Blood Pressure Source Blood Pressure Position Blood Pressure Location Pulse Ox 92 92 92 Oxygen Delivery Method Nasal Cannula Nasal Cannula Nasal Cannula Oxygen Flow Rate (L/min) 3 3 3 03/26/25 17:10 03/26/25 18:00 03/26/25 19:01 Temperature 98.7 F 98.7 F Temperature Source Oral Pulse Rate 100 92 94 Respiratory Rate 18 18 18 Respiratory Effort Blood Pressure 106/67 98/70 94/67 Blood Pressure Mean 80 79 76 Blood Pressure Source Blood Pressure Position Blood Pressure Location Pulse Ox 92 92 94 Oxygen Delivery Method Nasal Cannula Nasal Cannula Oxygen Flow Rate (L/min) 3 3 03/26/25 19:08 Temperature 98.1 F Temperature Source Temporal Pulse Rate 96 Respiratory Rate 17 Respiratory Effort Blood Pressure 128/96 H Blood Pressure Mean 106 Blood Pressure Source Monitor Blood Pressure Position Sitting Blood Pressure Location Left Forearm Pulse Ox 94 Oxygen Delivery Method Nasal Cannula Oxygen Flow Rate (L/min) 2 Weight Weight: 91.1 kg Body Mass Index (BMI) 31.5 Physical Exam Const alert, no apparent distress and average body habitus Constitutional Narrative: Patient has some mild cognitive impairment, he answers simple questions appropriately General Appearance: cooperative, well kempt and well developed Orientation / Consciousness: awake, oriented to person and oriented to place HEENT normocephalic, head/scalp atraumatic, hearing grossly normal bilaterally and moist oral mucous membranes Eyes PERRL, EOMs intact bilaterally and conjunctivae normal Neck supple, no JVD, thyroid normal and no carotid bruits General: trachea midline Resp normal respiratory effort, no retractions and no use of accessory muscles Resp Narrative: Patient does not, there are high-pitched expiratory wheezes scattered bilaterally. Auscultation: wheezes expiratory wheezes and throughout; Negative for rales or rhonchi Cardio regular rate, regular rhythm, S1 normal heart sound, S2 normal heart sound, no murmurs, no rub and no gallops GI normal to inspection, nondistended, normoactive bowel sounds, soft to palpation, non-tender and non-distended Extremity no clubbing, cyanosis or edema Skin no rashes or lesions noted General Skin Exam: no breakdown Neuro oriented x3, CN's II-XII intact bilaterally, moves all extremities, no focal motor deficits and no sensory deficits noted Sensorium / Orientation: awake and alert Speech: speech normal Psych affect normal Results Lab / Micro Data 03/27/25 07:18 03/27/25 07:18 Labs: Laboratory Results - last 24 hr 03/26/25 15:14: WBC 3.3 L, RBC 4.26 L, Hgb 13.6, Hct 37.2 L, MCV 87.3, MCH 31.9, MCHC 36.6 H, RDW Std Deviation 39.8, RDW Coeff of Deirdre 12.4, Plt Count 104 L, MPV 9.9, Immature Gran % (Auto) 0.300, Neut % (Auto) 52.3, Lymph % (Auto) 34.1, [place] % (Auto) 12.7 H, Eos % (Auto) 0.0, Baso % (Auto) 0.6, Absolute Neuts (auto) 1.7 L, Absolute Lymphs (auto) 1.13, Nucleated RBC % 0, Sodium 122 L, Potassium 2.8 L, Chloride 83 L, Carbon Dioxide 25.3, Anion Gap 14, BUN 12, Creatinine 1.01, Estim Creat Clear Calc 118.36, Est GFR (MDRD) Non-Af 105, BUN/Creatinine Ratio 11.5, Glucose 126 H, Lactic Acid < 1.0, Calcium 8.0, Troponin T High Sens 10 03/26/25 17:51: Troponin T Hi Sens 2 Hr 13 Micro: Microbiology 03/26/25 17:34 Urine, Clean Catch Legionella Antigen - Final 03/26/25 15:32 Mucosa - Nose SARS-CoV-2, Influenza & RSV (PCR) - Final Imaging Radiology Impression Chest CTA 03/26/25 15:42 IMPRESSION: 1. Limited evaluation of the subsegmental pulmonary arteries. No evidence of PE in the remaining pulmonary arteries. 2. Scattered lung opacities bilaterally, most consistent with multifocal pneumonia. Reading Location: [facility] Assessment & Plan Assessment/Plan (1) Community acquired pneumonia: PLAN: Plan 1. Bilateral pneumonia-etiology unclear, patient will be admitted to [facility], respiratory panel will be obtained, patient will be given Unasyn as a single agent for the pneumonia. He was given Rocephin and IV doxycycline in the emergency room-emergency room physician stated the patient's QT interval was prolonged. #2 hypoxia secondary to #1-patient's pulse ox will be monitored, he is currently on 4 L nasal cannula O2 #3 essential hypertension-patient will stay on his present medications #4 schizoaffective disorder-complicates care, management, recovery, and prognosis, patient will remain on his psychiatric medications Total clinical time spent by myself addressing the patient's medical issues, reviewing all of his data, and collaborating the patient's care team: 55 minutes Charges/Coding Visit Charges Inpatient E&M: 48859 Init Hosp L2
[2025-03-26] MEDS: KCL 20MEQ in 0.9% NS 20 MEQ/1,000 ML IV.SOLN. 125 MEQ IV (20:13)
[2025-03-26] MEDS: 0.9% Saline Lock 10 ML Syringe IV ×2 (20:14→23:27)
[2025-03-26] MEDS: Divalproex (ER) 500 MG Tablet PO (20:37)
[2025-03-26] MEDS: Ampicillin/Sulbactam 3 GM in 0.9% Normal Saline (100mL MB+) 100 ML IV (23:27)
[2025-03-27] VITALS (8 sets, daily range): BP systolic 109–136; BP diastolic 67–81; PULSE 60–100; RESP 15–20; TEMP 36.4–36.6; O2SAT 93–97
[2025-03-27] MEDS: KCL 20MEQ in 0.9% NS 20 MEQ/1,000 ML IV.SOLN. 125 MEQ IV ×3 (05:09→23:01)
[2025-03-27] MEDS: Ampicillin/Sulbactam 3 GM in 0.9% Normal Saline (100mL MB+) 100 ML IV (05:09)
[2025-03-27 07:31] LABS: Hematocrit 36.6 % (40-54); Hemoglobin 13.2 g/dL (13.0-16.5); Immature Granulocytes Count 0.020 X10^3/uL (0.0-0.0); Mean Corp Hgb Conc 36.1 g/dL (32-36); Mean Corpuscular Volume 88.6 fL (80-94); Mean Platelet Vol. 9.7 fl (6.2-12.0); NRBC Flagged by Analyzer 0 % (0-5); Platelet Count 119 K/mm3 (150-450); RBC Distribution Width CV 12.9 % (11.6-14.6); RBC Distribution Width SD 41.7 fl (35.1-43.9); Red Blood Count 4.13 M/mm3 (4.6-6.2); White Blood Count 5.0 K/mm3 (4.4-11.0)
[2025-03-27 08:14] LABS: Anion Gap 11 (5-15); BUN 7 mg/dL (4-19); BUN/Creat Ratio 10.0 RATIO (10-20); Calcium,Total 8.6 mg/dL (7.6-11.0); Carbon Dioxide 24.2 mmol/L (21.0-32.0); Chloride 97 mmol/L (98-108); Estimated Creatinine Clearance 176.58 ml/min (50-250); Glucose 94 mg/dL (70-99); Potassium 4.2 mmol/L (3.3-5.1)
--- NOTE | 2025-03-27 08:55 | CASEMGMT ---
Social Work Pt admitted from [facility]. Phone call to pt's Guardian Jay Hitchcock who confirms the plan is for pt to return to [facility] at time of DC. DC senior assistant manager updated and to update [facility]. Plan: Return to [facility], when medically ready SULAIMAN Diallo
[2025-03-27] MEDS: Divalproex (ER) 500 MG Tablet PO ×2 (09:30→20:57)
--- NOTE | 2025-03-27 15:11 | CASEMGMT ---
Discharge Planning Updates faxed to Wilian Reyes with note that pt may return over the weekend. Fax confirmation rec'd. Ashley Brar DC Planning Asst.
--- NOTE | 2025-03-27 18:21 | PN.HOSP_ITS ---
Reason for Visit Chief Complaint: Shortness of breath Subjective Subjective Patient was seen and examined today, he is on room air at this time and appears comfortable. Patient's respiratory panel was abnormal and that it detected parainfluenza 2 virus. Objective Data Objective Data Vital Signs: Vital Signs Temp Pulse Resp BP Pulse Ox O2 Del Method O2 Flow Rate 97.5 F L 77 15 111/77 97 Room Air 2 03/27/25 16:00 03/27/25 16:00 03/27/25 16:00 03/27/25 16:00 03/27/25 16:00 03/27/25 16:00 03/27/25 05:06 Oxygen Flow Rate (L/min) 2 Oxygen Delivery Method Room Air Weight: 91.1 kg Body Mass Index (BMI) 31.5 Intake & Output: Intake and Output for Last 24 Hours 03/25/25 03/26/25 03/27/25 23:59 23:59 23:59 Intake Total 1314.58 / 1314.58 2662.50 / 2662.50 Balance 1314.58 / 1314.58 2662.50 / 2662.50 Lab / Micro Data 03/27/25 07:18 03/27/25 07:18 Labs: Laboratory Results - last 24 hr 03/26/25 17:51: Troponin T Hi Sens 2 Hr 13 03/27/25 07:18: WBC 5.0, RBC 4.13 L, Hgb 13.2, Hct 36.6 L, MCV 88.6, MCH 32.0, M CHC 36.1 H, RDW Std Deviation 41.7, RDW Coeff of Deirdre 12.9, Plt Count 119 L, MPV 9.7, Immature Gran % (Auto) 0.400, Neut % (Auto) 44.9 L, Lymph % (Auto) 33.1, M tammie % (Auto) 21.4 H, Eos % (Auto) 0.0, Baso % (Auto) 0.2, Absolute Neuts (auto) 2.3, Absolute Lymphs (auto) 1.67, Nucleated RBC % 0, Sodium 132 L, Potassium 4.2, Chloride 97 L, Carbon Dioxide 24.2, Anion Gap 11, BUN 7, Creatinine 0.67 L, Estim Creat Clear Calc 176.58, Est GFR (MDRD) Non-Af 132, BUN/Creatinine Ratio 10.0, Glucose 94, Calcium 8.6 Micro: Microbiology 03/26/25 19:55 Mucosa - Nasopharyngeal Respiratory Panel (PCR) - Final Parainfluenza 2 03/26/25 17:34 Urine, Clean Catch Legionella Antigen - Final 03/26/25 15:32 Mucosa - Nose SARS-CoV-2, Influenza & RSV (PCR) - Final Physical Exam Const alert and no apparent distress General Appearance: cooperative, well kempt and well developed Orientation / Consciousness: awake, oriented to person and oriented to place HEENT normocephalic, head/scalp atraumatic and moist oral mucous membranes Eyes PERRL, EOMs intact bilaterally and conjunctivae normal Neck supple, no JVD, thyroid normal and no carotid bruits General: trachea midline Resp normal respiratory effort, no retractions and no use of accessory muscles Resp Narrative: There are mild expiratory wheezes noted bilaterally Auscultation: wheezes expiratory wheezes and throughout; Negative for rales or rhonchi Cardio regular rate, regular rhythm, no murmurs, no rub and no gallops GI normal to inspection, nondistended, normoactive bowel sounds, soft to palpation, non-tender and non-distended Extremity no clubbing, cyanosis or edema Skin no rashes or lesions noted General Skin Exam: no breakdown Neuro CN's II-XII intact bilaterally, no focal motor deficits and no sensory deficits noted Neuro Narrative: Patient has evidence of mild cognitive impairment Sensorium / Orientation: awake, alert, oriented to person and oriented to place Speech: speech normal Psych Psych Narrative: Mild cognitive impairment is noted Assessment & Plan Assessment/Plan (1) Community acquired pneumonia: PLAN: Plan 1. Bilateral pneumonia-secondary to parainfluenza 2 virus, I have added oral prednisone today, I have elected to keep the patient on IV antibiotics for now and I will reevaluate the need for them tomorrow #2 hypoxia secondary to #1-resolved at this time #3 essential hypertension-patient will stay on his present medications #4 schizoaffective disorder-complicates care, management, recovery, and prognosis, patient will remain on his psychiatric medications Total clinical time spent by myself addressing the patient's medical issues, reviewing all of his data, and collaborating the patient's care team: 35 minutes Charges/Coding Visit Charges Inpatient E&M: 77787 Subs Hosp L2
[2025-03-28 02:28] VITALS: BP 105/63; PULSE 66; RESP 18; TEMP 36.6; O2SAT 95
[2025-03-28 07:43] VITALS: O2SAT 95
[2025-03-28] MEDS: KCL 20MEQ in 0.9% NS 20 MEQ/1,000 ML IV.SOLN. 125 MEQ IV (08:44)
[2025-03-28] MEDS: Divalproex (ER) 500 MG Tablet PO ×2 (08:45→21:02)
[2025-03-28 08:48] VITALS: BP 132/88; PULSE 80; RESP 16; TEMP 36.4; O2SAT 94
[2025-03-28 14:08] VITALS: BP 100/61; PULSE 66; RESP 18; TEMP 36.7; O2SAT 95
--- NOTE | 2025-03-28 16:11 | TREXTCAR_ITS ---
Diet Diet Order/Speech Therapy: INPATIENT Hospital Diet / Speech Therapy Order(s) 03/26/25 18:59 Diet: Regular - General Food consistency:: Regular Liquid Consistency:: Regular/Thin Routine Orders/Code Status Code Status: Full Code DC O2, CPAP, BIPAP needs Home O2 Discharge instructions: No Therapies Weight Bearing: Full weight bearing Problem/Diagnosis (1) Community acquired pneumonia: Status: Acute Code(s): J18.9 - Pneumonia, unspecified organism Plan 1. Bilateral pneumonia-secondary to parainfluenza 2 virus #2 hypoxia secondary to #1-resolved at this time #3 essential hypertension-patient will stay on his present medications #4 schizoaffective disorder-complicates care, management, recovery, and prognosis, patient will remain on his psychiatric medications Total clinical time spent by myself addressing the patient's medical issues, reviewing all of his data, and collaborating the patient's care team: 35 minutes Allergies/Procedures Done in Hospital Allergies No Known Allergies Allergy (Verified 03/26/25 15:10) Procedures: None Type of Care/Length of Stay Estimated LOS: More Than 30 Days Type of Care Needed: Intermediate Rehab Potential: Good Prognosis: Good Additional Orders/Day of Discharge H&P will serve as current which was dated: 03/26/25 Day of Discharge: 03/28/25 Discharge Plan Admission Admit Date/Time: 03/26/25 18:22 Primary Reason for Your Visit: Parainfluenza pneumonia Attending Provider: Gerald Francis Primary Care Provider: Gio Drew Discharge Orders/Prescriptions Prescriptions: New dextromethorphan-guaifenesin 10-100 mg/5 mL Syrup 10 ml PO Q6H PRN PRN (Reason: Cough) Qty: 0 0RF prednisone 20 mg Tablet 20 mg PO BIDCM Qty: 1 0RF Rx Instructions: starting 03/29/25 one twice a day for 3 days, then one daily for 3 days, then discontinue Continued lorazepam [Ativan] 1 mg tablet 1 mg PO Q6H PRN PRN (Reason: anxiety) divalproex [Depakote] 500 mg tablet,delayed release (DR/EC) 500 mg PO BID hydroxyzine HCl 50 mg tablet 50 mg PO Q6H PRN (Reason: anxiety) lisinopril 10 mg tablet 10 mg PO QDAY olanzapine 10 mg tablet 10 mg PO BID trazodone 50 mg tablet 50 mg PO QHS methimazole 10 mg tablet 10 mg PO DAILY propranolol 20 mg tablet 10 mg PO DAILY divalproex [Depakote] 250 mg tablet,delayed release (DR/EC) 250 mg PO QHS methimazole 15 mg tablet 15 mg PO .every other day Discontinued hydrochlorothiazide 25 mg tablet 25 mg PO QAM Referrals / Follow Up: Gio Drew MD [Primary Care Provider, Medical] Disposition Disposition (needs filled in before D/C Order can be placed): Intermediate Facility
--- NOTE | 2025-03-28 20:50 | NURSING ---
Report called to yad[facility] at [facility].
[2025-03-28 21:04] VITALS: BP 124/85; PULSE 80; RESP 17; TEMP 36.6; O2SAT 94
== END 2025-03-28 21:11 | disposition skilled nursing facility (03) | DRG 195 ==
LOC: ED 18:12 → MS3 18:49
PROVIDERS: Admitting Provider Internal Medicine; Emergency Provider Student in an Organized Health Care Education/Training Program; PCP Family Medicine; Visit Provider Internal Medicine
DX: J18.9 Pneumonia, unspecified organism (principal); F25.9 Schizoaffective disorder, unspecified; I10 Essential (primary) hypertension; E03.9 Hypothyroidism, unspecified; I73.9 Peripheral vascular disease, unspecified; F17.210 Nicotine dependence, cigarettes, uncomplicated; B97.89 Other viral agents as the cause of diseases classified elsewhere; Z79.899 Other long term (current) drug therapy
CPT/HCPCS: 36415; 71275; 80048; 80053; 83605; 84484; 85025; 87449; 87631; 87633; 93005; 94640; 99285; Q9967; A4216; J0295

== ENCOUNTER → 2025-03-26 | Outpatient (CLI) | payer MEDICARE, MEDICAID, SELFPAY ==
[2025-03-26 13:15] LABS: Hematocrit 37.6 % (40-54); Hemoglobin 13.6 g/dL (13.0-16.5); Immature Granulocytes Count 0.020 X10^3/uL (0.0-0.0); Mean Corp Hgb Conc 36.2 g/dL (32-36); Mean Corpuscular Volume 88.3 fL (80-94); Mean Platelet Vol. 10.7 fl (6.2-12.0); NRBC Flagged by Analyzer 0 % (0-5); Platelet Count 107 K/mm3 (150-450); RBC Distribution Width CV 12.4 % (11.6-14.6); RBC Distribution Width SD 40.2 fl (35.1-43.9); Red Blood Count 4.26 M/mm3 (4.6-6.2); White Blood Count 4.9 K/mm3 (4.4-11.0)
[2025-03-26 13:33] LABS: AST(SGOT) 67 U/L (<=37); Alanine Aminotransfer ALT/SGPT 59 U/L (<=46); Albumin, Serum 4.2 g/dL (3.5-5.0); Alkaline Phosphatase 42 U/L (40-129); Anion Gap 14 (5-15); BUN 10 mg/dL (4-19); BUN/Creat Ratio 8.8 RATIO (10-20); Calcium,Total 7.9 mg/dL (7.6-11.0); Carbon Dioxide 26.4 mmol/L (21.0-32.0); Chloride 82 mmol/L (98-108); Globulin 2.3 g/dL (2.2-4.2); Glucose 114 mg/dL (70-99); Potassium 2.8 mmol/L (3.3-5.1)
== END | disposition home or self-care (01) ==
PROVIDERS: PCP Family Medicine; Referring Provider Family Medicine; Visit Provider Family Medicine
DX: R06.2 Wheezing (principal)
CPT/HCPCS: 80053; 85025

== ENCOUNTER → 2025-04-01 | Outpatient (CLI) | payer MEDICARE, SELFPAY ==
[2025-04-01 11:46] LABS: Hematocrit 41.7 % (40-54); Hemoglobin 14.7 g/dL (13.0-16.5); Immature Granulocytes Count 0.170 X10^3/uL (0.0-0.0); Mean Corp Hgb Conc 35.3 g/dL (32-36); Mean Corpuscular Volume 91.2 fL (80-94); Mean Platelet Vol. 9.7 fl (6.2-12.0); NRBC Flagged by Analyzer 0 % (0-5); Platelet Count 404 K/mm3 (150-450); RBC Distribution Width CV 14.0 % (11.6-14.6); RBC Distribution Width SD 47.0 fl (35.1-43.9); Red Blood Count 4.57 M/mm3 (4.6-6.2); White Blood Count 9.8 K/mm3 (4.4-11.0)
[2025-04-01 12:19] LABS: AST(SGOT) 29 U/L (<=37); Alanine Aminotransfer ALT/SGPT 68 U/L (<=46); Albumin, Serum 4.2 g/dL (3.5-5.0); Alkaline Phosphatase 50 U/L (40-129); Anion Gap 14 (5-15); BUN 6 mg/dL (4-19); BUN/Creat Ratio 8.0 RATIO (10-20); Calcium,Total 8.8 mg/dL (7.6-11.0); Carbon Dioxide 23.5 mmol/L (21.0-32.0); Chloride 101 mmol/L (98-108); Globulin 2.3 g/dL (2.2-4.2); Glucose 99 mg/dL (70-99); Potassium 4.6 mmol/L (3.3-5.1)
== END | disposition home or self-care (01) ==
LOC: LABSPEC 11:15
PROVIDERS: PCP Family Medicine; Visit Provider Family Medicine
DX: J16.8 Pneumonia due to other specified infectious organisms (principal)
CPT/HCPCS: 80053; 85025